=== PATIENT | female | born 1945 | race Caucasian/White ===

== ENCOUNTER → 2018-05-30 08:21 | Outpatient (CLI) | payer MEDICARE, SELFPAY ==
--- NOTE | 2018-05-30 08:24 | US_ITS ---
STUDY: THYROID ULTRASOUND REASON FOR EXAM: Female, 72 years old. Thyroid nodules TECHNIQUE: Ultrasound evaluation of the thyroid was performed with real-time and static french-scale imaging. COMPARISON: 01/27/2017 and 01/18/2016 FINDINGS: RIGHT LOBE: The right lobe of the thyroid gland measures 4.8 x 1.3 x 1.3 cm. There is a heterogeneous echotexture. Multiple small complex nodules are again noted, largest is in the upper pole measuring 1.2 x 0.8 x 0.5 cm. LEFT LOBE: The left lobe of the thyroid gland measures 4.8 x 2.2 x 1.9 cm. There is a heterogeneous echotexture. Stable appearing complex nodules, largest is in the mid to lower pole measuring 2.5 x 1.9 x 1.7 cm. ISTHMUS: The isthmus measures 2 mm. The regional lymph nodes are normal. US/Thyroid IMPRESSION: Stable heterogeneous thyroid with multiple complex nodules. Electronically Signed: Timbo Phillips DO at 9:27 EDT Tel , Service support ,
--- NOTE | 2018-05-30 08:24 | BI_ITS ---
MAMMOGRAPHY - BILATERAL SCREENING REASON FOR EXAM: Female, 72 years old. Routine annual screening examination. PERTINENT HISTORY: Non-contributory. TECHNIQUE: Digital bilateral breast zafar (3D mammographic acquisition) in the CC and MLO projections. 2-D mediolateral oblique (MLO) and craniocaudad (CC) views of both breasts were obtained. CAD: Full Field Digital Mammography with Computer Added Detection was performed. COMPARISON: Comparison is made with prior study dated January 27, 2017 and January 18, 2016. FINDINGS: Breast Composition: There are scattered areas of fibroglandular density. There are no dominant masses or suspicious calcifications. No other significant abnormalities are identified. There has been no significant change since the prior study. BI/SCREENING MAMM (CAD), BILAT IMPRESSION: Stable bilateral screening mammogram. Yearly follow-up mammogram recommended. (A) ASSESSMENT CATEGORY: BIRADS Category 1: Negative. A letter regarding these results will be sent to the patient by the facility within 30 days. Approximately 10% of breast cancers are not detected by mammography. A normal mammogram should not delay biopsy of a clinically suspicious abnormality. [id number] Electronically Signed: Samuel Soriano MD at 9:52 EDT Tel [phone], Service support ,
== END ==
PROVIDERS: Family Provider Internal Medicine; PCP Internal Medicine; Visit Provider Internal Medicine
DX: Z12.31 Encounter for screening mammogram for malignant neoplasm of breast (principal); E04.1 Nontoxic single thyroid nodule
CPT/HCPCS: 76536; 77063; 77067

== ENCOUNTER → 2018-07-27 12:39 | Outpatient (CLI) | payer SELFPAY ==
--- NOTE | 2018-07-27 12:43 | CT_ITS ---
STUDY: CARDIAC CALCIUM SCORING - CT CHEST REASON FOR EXAM: Female, 73 years old. Hyperlipidemia. Calcium score, screening. RADIATION DOSAGE (If Supplied By Facility): CTDIvol = ( 12.19 ) mGy, DLP = ( 219.42 ) mGycm TECHNIQUE: Axial non-enhanced images were acquired through the heart for the sole purpose of measuring coronary artery calcium. Individualized dose optimization techniques were used for this CT. COMPARISON: CT chest 02/08/2012. FINDINGS: Speckled calcifications in the spleen are consistent with old granulomatous disease. No acute upper abdominal process. There is a low-density circumscribed oval cystlike focus within the left liver measuring long axis XIV mm. A smaller cyst was present in the same position of the prior CT scan of 2011. Likely benign. Incompletely characterized. Ultrasound liver is recommended. Mediastinal contents normal. Osseous structures exhibit no acute process. There are prominent features of centrilobular emphysema. Right upper lobe anterior segment pulmonary nodule anterior pleural margin 5.4 mm. Stable compared to prior imaging of 2011. Unremarkable airways. No significant cardiomegaly. No pericardial effusion. Nondilated aorta. Nondilated central pulmonary arteries. The right and left coronary arteries each emerge from the appropriate coronary sinus with right coronary dominance to the PDA. Coronary cusp secretions are present in the proximal LAD, proximal circumflex, mid RCA. Total Calcium Score: 180 Left main 0 LAD 140 Circumflex 8[address]/Limited Chest CT w/CCTA IMPRESSION: A Calcium Score of 180 places the patient in the approximate 65th percentile, based on the [employer] data calculator. Prominent emphysema. Please go to: [email or web address] , for a description of the calculator. Electronically Signed: Ja Mariee MD at 17:17 EST Tel , Service support ,
--- NOTE | 2018-07-27 12:43 | CT_ITS ---
STUDY: CARDIAC CALCIUM SCORING - CT CHEST REASON FOR EXAM: Female, 73 years old. Hyperlipidemia. Calcium score, screening. RADIATION DOSAGE (If Supplied By Facility): CTDIvol = ( 12.19 ) mGy, DLP = ( 219.42 ) mGycm TECHNIQUE: Axial non-enhanced images were acquired through the heart for the sole purpose of measuring coronary artery calcium. Individualized dose optimization techniques were used for this CT. COMPARISON: CT chest 02/08/2012. FINDINGS: Speckled calcifications in the spleen are consistent with old granulomatous disease. No acute upper abdominal process. There is a low-density circumscribed oval cystlike focus within the left liver measuring long axis XIV mm. A smaller cyst was present in the same position of the prior CT scan of 2011. Likely benign. Incompletely characterized. Ultrasound liver is recommended. Mediastinal contents normal. Osseous structures exhibit no acute process. There are prominent features of centrilobular emphysema. Right upper lobe anterior segment pulmonary nodule anterior pleural margin 5.4 mm. Stable compared to prior imaging of 2011. Unremarkable airways. No significant cardiomegaly. No pericardial effusion. Nondilated aorta. Nondilated central pulmonary arteries. The right and left coronary arteries each emerge from the appropriate coronary sinus with right coronary dominance to the PDA. Coronary cusp secretions are present in the proximal LAD, proximal circumflex, mid RCA. Total Calcium Score: 180 Left main 0 LAD 140 Circumflex 8[address]/CCTA Calcium Scoring IMPRESSION: A Calcium Score of 180 places the patient in the approximate 65th percentile, based on the [employer] data calculator. Prominent emphysema. Please go to: [email or web address] , for a description of the calculator. Electronically Signed: Ja Mariee MD at 17:17 EST Tel , Service support ,
[2018-07-27 13:15] VITALS: BP 142/70; PULSE 59; RESP 14; O2SAT 95; BMI 24.1
--- NOTE | 2018-08-06 06:16 | CA.SCORE ---
Calcium Scoring Date of Study:: 07/27/18 Coronary Calcium Scoring: Coronary calcium score. High-resolution computed tomographic imaging of the chest was performed on 07/27/2018 with particular attention paid to the coronary arteries. Images from the examination were analyzed for the presence and extent of coronary artery calcification using the coronary calcification software. The patient tolerated the procedure well there were no complications. The results of the coronary calcification analysis are provided below. Coronary artery score Left main coronary artery score 0 Left anterior descending artery score 140 Left circumflex artery score 8 Right coronary artery score 31 Total calcium Agagston score [address] the patient between the 50th and 75th percentile ranking for age and gender. The above is indicative of mild nonobstructive atherosclerotic plaquing. Conclusion: Mild atherosclerotic disease with mild to minimal stenosis.
== END ==
PROVIDERS: Family Provider Internal Medicine; PCP Internal Medicine; Referring Provider Internal Medicine; Visit Provider Internal Medicine
DX: E78.5 Hyperlipidemia, unspecified (principal); J43.9 Emphysema, unspecified
CPT/HCPCS: 75571; 76380

== ENCOUNTER → 2018-08-21 08:58 | Outpatient (CLI) | payer MEDICARE, SELFPAY ==
[2018-07-27 13:15] VITALS: BMI 24.1
--- NOTE | 2018-08-21 09:01 | US_ITS ---
STUDY: ABDOMINAL ULTRASOUND - RIGHT UPPER QUADRANT REASON FOR VISIT: Female, 73 years old. Abnormality seen in the left lobe of the liver on prior CT scan. TECHNIQUE: Ultrasound evaluation of the right upper quadrant was performed with real-time and static french-scale imaging. TECHNICAL QUALITY: Adequate. COMPARISON: None. FINDINGS: Liver: The liver measures 13.0 cm. There is normal echogenicity of the liver. The bile ducts are within normal limits. There is hepatic color flow. The direction of portal flow is hepatopetal. There is a 1.3 cm x 1.8 cm x 1.2 cm cyst in the left lobe of the liver. This corresponds to the CT findings. Gallbladder: There is a contracted gallbladder. The gallbladder wall measures 4.0 mm. There is a negative sonographic Foy's sign. There is no pericholecystic fluid. There are multiple echogenic structures within the gallbladder, consistent with multiple gallstones. Common Bile Duct (C.B.D.): The common bile duct measures 3.0 mm. Pancreas: Normal size of the head, body and tail of the pancreas. There is normal echogenicity of the pancreas. There is no demonstrated pancreatic mass or cyst. Right Kidney: Normal size of the right kidney. The right kidney measures 9.8 cm x 4.6 cm x 4.1 cm. Normal renal cortex. The right cortex measures 1.3 cm. There is no demonstrated renal mass or cyst. There is no right hydronephrosis. US/Liver IMPRESSION: Contracted stone filled gallbladder. 1.3 cm x 1.8 cm x 1.2 cm cyst in the left lobe of the liver. Electronically Signed: Samuel Soriano MD at 10:05 EST Tel [phone], Service support ,
--- OUTSIDE RECORDS SUMMARY | 2018-10-23 09:20 | XMS RPT_ITS | Continuity of Care Document ---
:1945 External Reference #:[id number] Author Organization [facility] Address [address] [facility] [address] [place] [address] Phone Care Team Providers Name Role Phone Isabella Peacock DO Unavailable Tomer BRADLEY, Dr. Enoc Marcano Unavailable Merna Hinojosa Unavailable Unavailable Swati Bauer Unavailable Unavailable LILI Michel Unavailable Unavailable City Distribution Clerk, System Unavailable Unavailable Unavailable Unavailable Problems Name Dates Details Abnormal CT of liver (R93.2, 793.3) Status: Active Acute exacerbation of COPD with asthma (J44.1, 493.22) Comments: worsening and prolonged coughfollowing viral infection Status: Active Anxiety (F41.9, 300.00) Status: Active Arthralgia, unspecified joint (M25.50, 719.40) Comments: betteer with weight lost and eating less sugar Status: Active BMI 24.0-24.9, adult (Z68.24, V85.1) Status: Active Chest pain (R07.9, 786.50) Status: Active Chronic obstructive pulmonary disease (J44.9, 496) Comments: sx stable Status: Active COPD with acute exacerbation (Renamed from Acute exacerbation of chronic obstructive airways disease) (J44.1, 491.21) Comments: add albuterol- she has machine Status: Active Coronary artery disease (I25.10, 414.00) Status: Active Coronary artery disease, non-occlusive (I25.10, 414.00) Comments: takes somethingto thin blood she will send me a pic - already makes her bruise Status: Active Deliveries (Parity) Comments: 4 Status: Active Elevated hemoglobin A1c (R73.09, 790.29) Status: Active Encounter for screening mammogram for breast cancer (Renamed from Encounter for screening mammogram for malignant neoplasm of breast) (Z12.31, V76.12) Comments: dont schedule her tests just give orders Status: Active Encounter for screening mammogram for breast cancer (Renamed from Encounter for screening mammogram for malignant neoplasm of breast) (Z12.31, V76.12) Status: Active Encounter for screening mammogram for breast cancer (Renamed from Encounter for screening mammogram for malignant neoplasm of breast) (Z12.31, V76.12) Status: Active Former smoker (Z87.891, V15.82) Status: Active Gastroesophageal reflux disease without esophagitis (K21.9, 530.81) Status: Active History of colon polyps (Z86.010, V12.72) Status: Active Hypersomnia (G47.10, 780.54) Status: Active Influenza vaccination declined (Renamed from Refused influenza vaccine) (Z28.21, V64.06) Status: Active Influenza vaccination declined (Renamed from Refused influenza vaccine) (Z28.21, V64.06) Status: Active Malignant Melanoma Of Skin Comments: she is due for skin check Status: Active [facility] WE[facility] EXAM Status: Active [facility] Physical Status: Active [facility] wellness physical Status: Active Memory loss (R41.3, 780.93) Status: Active mthfr- check homocysteine then decide treatment Status: Active Need for prophylactic vaccination and inoculation against influenza (Z23, V04.81) Status: Active Need for prophylactic vaccination and inoculation against influenza (Z23, V04.81) Status: Active Need for prophylactic vaccination and inoculation against influenza (Renamed from Need for immunization against influenza) (Z23, V04.81) Status: Active Need for prophylactic vaccination and inoculation against influenza (Renamed from Need for immunization against influenza) (Z23, V04.81) Status: Active Need for prophylactic vaccination and inoculation against influenza (Renamed from Need for immunization against influenza) (Z23, V04.81) Status: Active Obstructive sleep apnea, adult (G47.33, 327.23) Comments: wearing cpap and feels it helps Status: Active Osteopenia of multiple sites (M85.89, 733.90) Comments: improved keep working on walking Status: Active Other hyperlipidemia (E78.49, 272.4) Status: Active Paresthesia (R20.2, 782.0) Status: Active Pneumococcal vaccination given (Z23, V06.6) Status: Active Postmenopausal (Renamed from Postmenopausal status) (Z78.0, V49.81) Status: Active Pregnancies () Comments: 4 Status: Active 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, 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) Comments: she considering potential treatment she will let me know when or if Status: Active Prolonged QT interval (R94.31, 794.31) Status: Active Pulmonary embolism (Renamed from PE (pulmonary embolism)) (I26.99, 415.19) Comments: no sx Status: Active Rhinitis, allergic (J30.9, 477.9) Status: Active Sleep Disorder (Renamed from Disordered sleep) (G47.9, 780.50) Comments: try melatonin 3 mg at hs prn Status: Active Thyroid Nodule (E04.1, 241.0) Status: Active 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, 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) Comments: she thinks better Status: Active Vitamin D deficiency, unspecified (E55.9, 268.9) Comments: chronic stable-continue present regimen Status: Active Medications Name Dates Details Albuterol Sulfate (2.5 MG/3ML) 0.083% Inhalation Nebulization Solution 1 (one) Nebulized Soln q 6 hours prn for 0 days Quantity: 1 {Box} Refills: 3 Ordered:30-Mar-2018 Fast DO, Isabella AFast DO, Isabella A Start : 30-Mar-2018 Active Metoprolol Tartrate 50 MG Oral Tablet 1 (one) Tablet Tablet 1 tab po @6pm night before scan, 1 tab po @7am day of scan for 0 days Quantity: 2 {Tablet} Refills: 0 Ordered:04-Jul-2018 Swati Bauer Start : 04-Jul-2018 Active Simvastatin 10 MG Oral Tablet 1 (one) Tablet q walker for 0 days Quantity: 30 {Tablet} Refills: 3 Ordered:20-Aug-2018 Fast DO, Isabella AFast DO, Isabella A Start : 20-Aug-2018 Active Spiriva HandiHaler 18 MCG Inhalation Capsule 1 Capsule puff q am for 30 days Quantity: 1 {Capsule} Refills: 3 Ordered:26-Jun-2018 Fast DO, Isabella AFast DO, Isabella A Start : 26-Jun-2018 Active Vitamin D3 2000 UNIT Oral Tablet 2 (two) Tablet qd for 0 days Quantity: 60 {Tablet} Refills: 0 Ordered:10-Mar-2017 Laura Bell MD Start : 10-Mar-2017 Active AMOXICILLIN, 500MG (Oral Tablet) 4 Tablet before dental procedure for 0 days Quantity: 4 {Tablet} Refills: 1 Ordered:28-Aug-2015 Swati Bauer Start : 23-May-2014 End : 28-Aug-2015 Inactive Augmentin 875-125 MG Oral Tablet 1 (one) Tablet bid for 0 days Quantity: 20 {Tablet} Refills: 0 Ordered:10-Mar-2017 LILI Michel Start : 28-Dec-2016 End : 10-Mar-2017 Inactive CALCIUM, 500MG (Oral Tablet) for 0 days Refills: 0 Ordered:27-Jun-2011 Merna Hinojosa End : 27-Jun-2011 Inactive CLARITIN, 10MG (Oral Capsule) 1 as needed for 0 days Refills: 0 Ordered:27-Jun-2011 Merna Hinojosa End : 27-Jun-2011 Inactive Comments:Medication taken as needed. CLARITIN-D 24 HOUR, 10-240MG (Oral Tablet Extended Release 24 Hour) 1 Tablet ER 24HR daily for 0 days Quantity: 30 Refills: 0 Ordered:27-Jun-2011 Merna Hinojosa Start : 15-Dec-2010 End : 27-Jun-2011 Inactive DRISDOL, 03538FLEF (Oral Capsule) 1 Capsule Weekly for 0 days Quantity: 4 {Capsule} Refills: 3 Ordered:27-Jun-2011 Merna Hinojosa Start : 05-Jul-2010 End : 27-Jun-2011 Inactive ERGOCALCIFEROL, [id number] (Oral Capsule) 1 (one) Capsule twice a week for 0 days Quantity: 8 {Capsule} Refills: 3 Ordered:15-Dec-2010 Luz Marina Barajas LPN Start : 15-Oct-2008 End : 15-Dec-2010 Inactive GLUCOSAMINE CHONDR 500 COMPLEX (Oral Capsule) for 0 days Refills: 0 Ordered:27-Jun-2011 Merna Hinojosa End : 27-Jun-2011 Inactive GUAIATUSSIN AC, 100-10MG/5ML (Oral Syrup) 1 Teaspoon(s) qhs prn for cough for 0 days Quantity: 6 {Ounce(s)} Refills: 0 Ordered:15-Dec-2010 Luz Marina Barajas LPN Start : 04-Aug-2009 End : 15-Dec-2010 Inactive LOVENOX, 60MG/0.6ML (Subcutaneous Solution) 1 BID QTY #4 for 0 days Refills: 0 Ordered:15-Dec-2010 Luz Marina Barajas LPN End : 15-Dec-2010 Inactive Meloxicam 7.5 MG Oral Tablet 1 (one) Tablet daily, prn for 30 days Quantity: 30 {Tablet} Refills: 3 Ordered:24-Mar-2017 Ny Parra LPN Start : 28-Jan-2015 End : 24-Mar-2017 Inactive OMNARIS, 50MCG/ACT (Nasal Suspension) 2 (two) Suspension puffs each nostril qd for 0 days Quantity: 1 {Suspension} Refills: 0 Ordered:14-Mar-2012 Merna Hinojosa Start : 27-Jun-2011 End : 14-Mar-2012 Inactive PREDNISONE, 20MG (Oral Tablet) 1 Tablet Tablet uad for 15 days Refills: 0 Ordered:28-Aug-2015 Merna Hinojosa Start : 28-Aug-2015 End : 12-Sep-2015 Inactive Comments:with food2 a d for 5 d, 1 a d for 5d, 1/2 a d for 5 d PROTONIX, 40MG (Oral Tablet Delayed Release) 1 tab qd,prn for 0 days Refills: 0 Ordered:15-Oct-2008 Merna Hinojosa End : 15-Oct-2008 Inactive PROVENTIL HFA, 108 (90 Base)MCG/ACT (Inhalation Aerosol Solution) 2 (two) Aerosol Soln 2puffs bid prn for 0 days Quantity: 1 {Aerosol_Soln} Refills: 0 Ordered:27-Jun-2011 Merna Hinojosa Start : 15-Dec-2010 End : 27-Jun-2011 Inactive TAMIFLU, 75MG (Oral Capsule) 1 Capsule bid for 5 days Quantity: 10 {Capsule} Refills: 0 Ordered:06-Aug-2012 Regine Jimenes CNP Start : 06-Aug-2012 End : 11-Aug-2012 Inactive Valtrex 1 GM Oral Tablet 1 (one) Tablet tid (1 GM) Start : 10-Mar-2017 Inactive CHERATUSSIN AC, 100-10MG/5ML (Oral Syrup) 1 Teaspoon(s) q 6-8 hrs prn for 0 days Quantity: 6 {Ounce(s)} Refills: 0 Ordered:06-May-2013 Fast DO, Isabella AFast DO, Isabella A Start : 06-May-2013 End : 06-May-2013 Discontinued Doxycycline Hyclate 100 MG Oral Capsule 1 (one) Capsule bid for 0 days Quantity: 20 {Capsule} Refills: 0 Ordered:14-Dec-2016 Merna Hinojosa Start : 13-Dec-2016 End : 14-Dec-2016 Discontinued Levaquin 500 MG Oral Tablet 1 (one) Tablet daily for 7 days Quantity: 7 {Tablet} Refills: 0 Ordered:28-Dec-2016 Merna Hinojosa Start : 14-Dec-2016 End : 28-Dec-2016 Discontinued MULTIVITAMIN (Oral Liquid) for 0 days Refills: 0 Ordered:27-Jun-2011 Merna Hinojosa End : 27-Jun-2011 Discontinued Comments:This order discontinued per [facility]. OXYGEN (Nasal Gas) (Free Text) 2L Nasal canula End : 28-Apr-2015 Discontinued Comments:2L Nasal canula at night PredniSONE 10 MG Oral Tablet 3 (three) Tablet pills for 3 days 2 pills for 3 days 1 pill for 3 days with food in the am for 0 days Quantity: 18 {Tablet} Refills: 0 Ordered:28-Dec-2016 Merna Hinojosa Start : 13-Dec-2016 End : 28-Dec-2016 Discontinued Symbicort 80-4.5 MCG/ACT Inhalation Aerosol 1 (one) Aerosol Aerosol bid for 0 days Quantity: 1 {Each} Refills: 0 Ordered:13-Dec-2016 Meran Hinojosa Start : 28-Aug-2015 End : 13-Dec-2016 Discontinued TESSALON PERLES, 100MG (Oral Capsule) 1 Capsule tid prn for 0 days Quantity: 30 {Capsule} Refills: 0 Ordered:06-May-2013 Fast DO, Isabella AFast DO, Isabella A Start : 06-May-2013 End : 06-May-2013 Discontinued VITAMIN D (ERGOCALCIFEROL), 65801LTIB (Oral Capsule) 1 Capsule q week for 0 days Quantity: 12 {Capsule} Refills: 3 Ordered:06-May-2013 Fast DO, Isaeblla AFast DO, Isabella A Start : 06-May-2013 End : 06-May-2013 Discontinued VITAMIN D, 80270BYKQ (Oral Capsule) 1 Weekly for 0 days Refills: 0 Ordered:07-Apr-2010 Mast Loyda MARTINEZ End : 07-Apr-2010 Discontinued Comments:This order discontinued per [facility]. WARFARIN SODIUM, 1MG (Oral Tablet) 1 (one) Tablet as directed for 30 days Quantity: 90 {Tablet} Refills: 3 Ordered:14-Mar-2012 Merna Hinojosa Start : 14-Mar-2012 End : 14-Mar-2012 Discontinued Allergies and Adverse Reactions Name Dates Details Biaxin *MACROLIDES* (Allergy) Status: Active Comments: Excessive gas Tetracyclines (Allergy) Status: Active Comments: elizabeth gave her esophageal issues- despite plenty of water Past Medical History Name Dates Details Acute upper respiratory infection (J06.9, 465.9) Status: Resolved as of 30-Mar-2018 Anemia, unspecified (D64.9, 285.9) Status: Resolved as of 05-Jul-2010 BMI 25.0-25.9,adult (Z68.25, V85.21) Status: Inactive as of 02-Jul-2018 BMI 26.0-26.9,adult (Z68.26, V85.22) Status: Inactive as of 24-Nov-2017 BMI 27.0-27.9,adult (Z68.27, V85.23) Status: Inactive as of 10-Mar-2017 Bronchitis (J40, 490) Status: Resolved as of 01-Mar-2010 Bronchitis, acute (J20.9, 466.0) Comments: good efort and curve some improve over baseline Status: Resolved as of 06-May-2013 Carpal tunnel syndrome, unspecified laterality (G56.00, 354.0) Status: Inactive as of 26-Dec-2014 COPD with acute exacerbation (Renamed from Acute exacerbation of chronic obstructive airways disease) (J44.1, 491.21) Status: Resolved as of 30-Mar-2018 Cough (R05, 786.2) 15-Dec-2010 Status: Resolved as of 11-Apr-2014 Dermatitis (L30.9, 692.9) Comments: on buttocks and face- both different seem to be getting with cortaid so use sparingly call not resolve Status: Resolved as of 30-Mar-2018 Elevated LFTs (R94.5, 790.6) Status: Resolved as of 05-Jul-2010 Encounter for screening mammogram for breast cancer (Renamed from Encounter for screening mammogram for malignant neoplasm of breast) (Z12.31, V76.12) Comments: end december Status: Resolved as of 30-Mar-2018 Fever and chills (R50.9, 780.60) Status: Resolved as of 06-May-2013 Hypoxia (R09.02, 799.02) Comments: now on bipap Status: Inactive as of 02-Jul-2018 Influenza B (J10.1, 487.1) Status: Resolved as of 06-May-2013 Knee pain (Renamed from Arthralgia of knee) (M25.569, 719.46) Status: Inactive as of 02-Jul-2018 Low back pain (Renamed from LBP (low back pain)) (M54.5, 724.2) Status: Resolved as of 05-Jul-2010 Low back pain potentially associated with radiculopathy (M54.5, 724.2) Comments: better Status: Inactive as of 02-Jul-2018 Lung nodule (R91.1, 793.11) Comments: benign by ct Status: Inactive as of 02-Jul-2018 Lymphadenopathy (Renamed from Adenopathy) (R59.1, 785.6) Status: Resolved as of 01-Mar-2010 Mildly decreased WBC, Increased lymphs Status: Resolved as of 30-Mar-2018 Need for prophylactic vaccination with tetanus toxoid alone (Z23, V03.7) Status: Inactive as of 06-Jan-2009 Neoplasm of uncertain behavior of skin (D48.5, 238.2) Status: Resolved as of 30-May-2012 Observed sleep apnea (G47.30, 780.57) Comments: per patient boyfriend has witnessed this multiple times at [facility] sleep study to evaluate had abnormal overnight pulse ox Status: Inactive as of 26-Dec-2014 Prophylactic vaccination against Streptococcus pneumoniae (Z23, V03.82) Status: Resolved as of 30-Mar-2018 Rash (R21, 782.1) Comments: on both buttocks not look like shingles firsst impressionis bu bites so gave education on how to check bed. will do zyrtic in am and benadryl in evening. check dog for fleas. next impression is follicul itis and will treat with hibclens and then consider oral atb. she funes snot want to do oral atb. if get more pustules then will do. if not better 1 week follow up Status: Resolved as of 30-Mar-2018 screening Status: Inactive as of 06-May-2013 screening Status: Resolved as of 30-Mar-2018 screening Status: Inactive as of 27-Jun-2011 screening Status: Inactive as of 11-Apr-2014 screening Status: Inactive as of 11-Apr-2014 screening Status: Inactive as of 14-Mar-2012 Severe daytime sleepiness Status: Resolved as of 30-Mar-2018 Shingles (B02.9, 053.9) Status: Resolved as of 30-Mar-2018 Snoring (R06.83, 786.09) Status: Inactive as of 26-Dec-2014 SOB (shortness of breath) on exertion (R06.02, 786.05) Status: Resolved as of 01-Mar-2010 Soft tissue mass (M79.9, 729.90) Status: Inactive as of 02-Jul-2018 STRIPPING AND LIGATION OF VEINS OF LEG, NOS Status: Resolved as of 30-Mar-2018 Tachycardia (Renamed from Fast heart beat) (R00.0, 785.0) Status: Resolved as of 01-Mar-2010 Trigger thumb of right hand (M65.311, 727.03) Comments: refer tomer Status: Resolved as of 30-Mar-2018 vit d def Status: Resolved as of 30-Mar-2018 Well woman exam (Z00.00, V70.0) Status: Inactive as of 27-Jun-2011 Wheezing (Renamed from Asthmatic breathing) (R06.2, 786.07) 15-Dec-2010 Status: Resolved as of 27-Jun-2011 Procedures Procedure Dates Details Colonoscopy Completed Comments: 08-08-08, colon polyps, repeat 10 yrs. left tka 2009 Completed right carpal tunnel- 2014 Completed STRIPPING AND LIGATION OF VEINS OF LEG, Completed NOS Tonsillectomy Completed Comments: and adenoids tubal ligation Completed vein stripping Completed Date Value Details 27-Jul-2018 CCTA Calcium Scoring Result: Comments: See Note; NOTES: [facility] Imaging Services [address] [place] [address] CCTA Calcium Scoring MR#: [id number] Acct: [id number] Name: KERI MARVIN Rep #: [id number] : 1945 F 73 From: Verónica Mariee MD PCP: Isabella Peacock DO Status: REG CLI Study: CCTA Calcium Scoring Date of Exam: 07/27/18 Exam# [id number] Ordering Dr: Isabella Peacock DO STUDY: CARDIAC CALCIUM SCORING - CT CHEST REASON FOR EXAM: Female, 73 years old. Hyperlipidemia. Calcium score, screening. RADIATION DOSAGE (If Supplied By Facility): CTDIvol = ( 12.19 ) mGy, DLP = ( 219.42 ) mGycm TECHNI QUE: Axial non-enhanced images were acquired through the heart for the sole purpose of measuring coronary artery calcium. Individualized dose optimization techniques were used for this CT. COMPARISON: CT chest 02/08/2012. FINDINGS: Speckled calcifications in the spleen are consistent with old granulomatous disease. No acute upper abdominal process. There is a low -density circumscribed oval cystlike focus within the left liver measuring long axis XIV mm. A smaller cyst was present in the same position of the prior CT scan of 2011. Likely benign. Incompletely connor racterized. Ultrasound liver is recommended. Mediastinal contents normal. Osseous structures exhibit no acute process. There are prominent features of centrilobular emphysema. Right upper lobe anterior segment pulmonary nodule anterior pleural margin 5.4 mm. Stable compared to prior imaging of 2011. Unremarkable airways. No significant cardiomegaly. No pericardial effusion. Nondilated aorta. Nondilat ed central pulmonary arteries. The right and left coronary arteries each emerge from the appropriate coronary sinus with right coronary dominance to the PDA. Coronary cusp secretions are present in the proximal LAD, proximal circumflex, mid RCA. Total Calcium Score: 180 Left main 0 LAD 140 [address]um[address]/CCTA Calcium Scoring IMPRESSI ON: A Calcium Score of 180 places the patient in the approximate 65th percentile, based on the [employer] data calculator. Prominent emphysema. Please go to: [email or web address] , for a description of the calculator. Electronically Signed: Verónica Mariee MD at 17:17 EST Tel , Service support , CC: Isabella Peacock DO Dot Compliance Manager: Signed 27-Jul-[address] w/CCTA Result: Comments: See Note; NOTES: [facility] Imaging Services [address] [place] [address] w/CCTA MR#: [id number] Acct: [id number] Name: KERI MARVIN Rep #: [id number] : 1945 F 73 From: Verónica Mariee MD PCP: Isabella Peacock DO Status: REG CLI Study: Limited Chest CT w/CCTA Date of Exam: 07/27/18 Exam# [id number] Ordering Dr: Isabella Peacock DO STUDY: CARDIAC C ALCIUM SCORING - CT CHEST REASON FOR EXAM: Female, 73 years old. Hyperlipidemia. Calcium score, screening. RADIATION DOSAGE (If Supplied By Facility): CTDIvol = ( 12.19 ) mGy, DLP = ( 219.42 ) mGycm TECHNIQUE: Axial non-enhanced images were acquired through the heart for the sole purpose of measuring coronary artery calcium. Individualized dose optimization techniques were used for this CT. CHRISSY RISON: CT chest 02/08/2012. FINDINGS: Speckled calcifications in the spleen are consistent with old granulomatous disease. No acute upper abdominal process. There is a low-density circumscribed oval cystlike focus within the left liver measuring long axis XIV mm. A smaller cyst was present in the same position of the prior CT scan of 2012. Likely benign. Incomplete ly characterized. Ultrasound liver is recommended. Mediastinal contents normal. Osseous structures exhibit no acute process. There are prominent features of centrilobular emphysema. Right upper lobe ant erior segment pulmonary nodule anterior pleural margin 5.4 mm. Stable compared to prior imaging of 2012. Unremarkable airways. No significant cardiomegaly. No pericardial effusion. Nondilated aorta. No ndilated central pulmonary arteries. The right and left coronary arteries each emerge from the appropriate coronary sinus with right coronary dominance to the PDA. Coronary cusp secretions are present in the proximal LAD, proximal circumflex, mid RCA. Total Calcium Score: 180 Left main 0 LAD 140 [address]umflex 8[address]/Limited Chest CT w/CCTA IMPRESSION: A Calcium Score of 180 places the patient in the approximate 65th percentile, based on the [employer] data calculator. Prominent emphysema. Please go to: [email or web address].[email or web address] , for a description of the calculator. Electronically Signed: Verónica Mariee MD at 17:17 EST Tel , Service support , Fax CC: Isabella Peacock DO Dot Compliance Manager: Signed 30-May-2018 SCREENING MAMM (CAD), BILAT Result: Comments: See Note; NOTES: [facility] Imaging Services [address] [place] [address] SCREENING MAMM (CAD), BILAT MR#: [id number] Acct: [id number] Name: KERI MARVIN Rep #: [id number] : 1945 F 72 From: Samuel Leal MD PCP: Isabella Peacock DO Status: REG CLI Study: SCREENING MAMM (CAD), BILAT Date of Exam: 05/30/18 Exam# [id number] Ordering Dr: Isabella Peacock DO MAMMOG UCHE - BILATERAL SCREENING REASON FOR EXAM: Female, 72 years old. Routine annual screening examination. PERTINENT HISTORY: Non-contributory. TECHNIQUE: Digital bilateral breast zafar (3D mammographic acquisition) in the CC and MLO projections. 2-D mediolateral oblique (MLO) and craniocaudad (CC) views of both breasts were obtained. CAD: Full Field Digital Mammography with Computer Added Detection w as performed. COMPARISON: Comparison is made with prior study dated January 27, 2017 and January 18, 2016. FINDINGS: Breast Composition: There are scattered areas of fibr oglandular density. There are no dominant masses or suspicious calcifications. No other significant abnormalities are identified. There has been no significant change since the prior study. BI/SCREENING MAMM (CAD), BILAT IMPRESSION: Stable bilateral screening mammogram. Yearly follow-up mammogram recommended. (A) ASSESSMENT CATEGORY: BIRADS Category 1: Negative. A letter regarding these results will be sent to the patient by the facility within 30 days. Approximately 10% of breast cancers are not detect ed by mammography. A normal mammogram should not delay biopsy of a clinically suspicious abnormality. [id number] Electronically Signed: Samuel Leal MD at 9:52 EDT Tel [phone], [employer] e support , CC: Isabella Peacock DO Dot Compliance Manager: Signed 30-May-2018 Thyroid Result: Comments: See Note; NOTES: [facility] Imaging Services [address] [place] [address] Thyroid MR#: [id number] Acct: [id number] Name: KERI MARVIN Rep #: [id number] : [birth year] F 72 From: Timbo Phillips DO PCP: Isabella Peacock DO Status: REG CLI Study: Thyroid Date of Exam: 05/30/18 Exam# [id number] Ordering Dr: Isabella Peacock DO STUDY: THYROID ULTRASOUND REASON FOR EXAM: Female, 72 years old. Thyroid nodules TECHNIQUE: Ultrasound evaluation of the thyroid was performed with real-time and static french-scale imaging. COMPARISON: 01/27/2017 and 01/18/2016 FINDINGS: RIGHT LOBE: The right lobe of the thyroid gland measures 4.8 x 1.3 x 1.3 cm. There is a heterogeneous echotexture. Multiple small complex nodules are again noted, largest is in the upper pole measuring 1.2 x 0.8 x 0.5 cm. LEFT LOBE: The left lobe of the thyroid gland measures 4.8 x 2.2 x 1.9 cm. There is a heterogeneous echotexture. Stable appearing complex nodules, largest is in the mid to lower pole measuring 2.5 x 1.9 x 1.7 cm. ISTHMUS: The isthmus measures 2 mm. The regional lymph nodes are normal. US/Thyroid IMPRE SSION: Stable heterogeneous thyroid with multiple complex nodules. Electronically Signed: Timbo Phillips DO at 9:27 EDT Tel , Service support , CC: Isabella Peacock DO Dot Compliance Manager: Signed 27-Jan-2017 SCREENING MAMM (CAD), BILAT Result: Comments: See Note; NOTES: [facility] Imaging Services [address] [place] [address] Verdana 4d SCREENING MAMM (CAD), BILAT MR#: [id number] Acct: [id number] Name: KERI MARVIN Rep #: [id number] : 1945 F 71 From: Samuel Leal MD PCP: Isabella Peacock DO Status: REG CLI Study: SCREENING MAMM (CAD), BILAT Date of Exam: 01/27/17 Exam# [id number] Ordering Dr: Isabella Peacock DO MAMMOGRAPHY - BILATERAL SCREENING REASON FOR EXAM: Female, 71 years old. Routine annual screening examination. PERTINENT HISTORY: Non-contributory. TECHNIQUE: Digital bilateral breast zafar (3D mammographic acquisition) in the CC and MLO projections. 2-D mediolateral oblique (MLO) and craniocaudad (CC) views of both breasts were obtained. CAD: Full Field Digital Mammography with Computer Added Detection was performed. COMPARISON: Comparison is made with prior examination dated January 18, 2016 and May 22, 2014. FINDINGS: Breast Composition: There are sc attered areas of fibroglandular density. There are no dominant masses or suspicious calcifications. No other significant abnormalities are identified. There has been no significant change since the pr ior study. HPBI/SCREENING MAMM (CAD), BILAT IMPRESSION: Stable bilateral screening mammogram. Yearly follow-up mammogram recommended. (A) ASSESSMENT CATEGORY: BIRADS Category 1: Negative. A letter regarding these results will be sent to the patient by the facility within 30 days. Approximately 10% of breast cancers are not detected by mammography. A normal mammogram should not delay biopsy of a clinically suspicious abnormality. [id number] Electronically Signed: Samuel eLal MD at 10:52 ED T Tel [phone], Service support , CC: Isabella Peacock DO Dot Compliance Manager: Signed 27-Jan-2017 Thyroid Result: Comments: See Note; NOTES: [facility] Imaging Services [address] [place] [address] Stefan 4d Thyroid MR#: [id number] Acct: [id number] Name: KERI MARVIN Rep #: [id number] D OB: 1945 F 71 From: Merna Solomon MD PCP: Isabella Peacock DO Status: REG CLI Study: Thyroid Date of Exam: 01/27/17 Exam# [id number] Ordering Dr: Isabella Peacock DO STUDY: THYROID ULTRASOUND REASON FOR EXAM: Female, 71 years old. Follow-up nodules TECHNIQUE: Ultrasound evaluation of the thyroid was performed with real-time and static french-scale imaging. COMPARISON: January 18, 2016 FINDINGS: RIGHT LOBE: The right lobe of the thyroid gland measures 5.0 x 1.3 x 1.4 cm. There is a heterogeneous echotexture. Six nodules were measured in the right lobe. The largest i s seen in the upper pole measuring 9.6 x 5.1 x 7.7 mm. This previously measured 9.9 x 5.8 x 7.7 mm. LEFT LOBE: The left lobe of the thyroid gland measures 4.7 x 1.8 x 2.2 cm. There is a heterogeneous e chotexture. Four nodules were measured in the left lobe. The largest is seen in the lower pole measuring 26.6 x 14.7 x 21.7 mm. This previously measured 23.2 x 16.8 x 17.9 mm. ISTHMUS: The isthmus jake ures 3.0 mm. The regional lymph nodes are normal. US/Thyroid IMPRESSION: The thyroid is prominent in size and heterogeneous with multiple nodul es consistent with multinodular goiter. There are no significant new findings. Electronically Signed: Merna Solomon MD at 0:00 EDT Tel [phone], Service support , Fax CC: Isabella Peacock DO Dot Compliance Manager: Signed 21-Sep-2016 NCS and/or EMG Patient Result: Comments: See Note; NOTES: [facility] Pulmonary Services/Neurology [address] [place] [address] NCS and/or EMG Patient MR#: [id number] Acct: [id number] Name: KERI MARVIN Rep #: [id number] : 1945 71 From: Donte Daniels MD Referring Dr: Isabella Peacock DO Status: REG CLI Ordering Dr: Isabella Peacock DO Date: 09/20/16 Location: [facility] Sex: F C DATE OF SERVICE: 09/20/2016 REF ERRING PHYSICIAN: Dr. Peacock INTRODUCTION: This is an EMG of the right upper extremity and nerve conduction study of the right upper extremity on this 71-year-old female with a history of bilateral carpa l tunnel syndrome, status post surgery bilaterally. She states on the right side, surgery initially helped; however, symptoms have worsened again leading to repeat evaluation. Nerve conduction study of the right upper extremity was performed. Although, the right upper extremity median motor distal latencies are prolonged, they are somewhat improved compared to previous study on April 24, 2012. Me huang F wave is also prolonged, but improved compared to the previous study. The ulnar motor conduction velocities have decreased since previous study, however. Right upper extremity EMG was performed i ncluding the first dorsal interosseous, abductor pollicis brevis and longus, brachioradialis, biceps, triceps, and deltoideus muscles. Median nerve innervated muscles distal to carpal tunnel did demonst rate large motor units, but no increase in insertional activity or spontaneous pathologic activity. Ulnar innervated muscles did demonstrate a positive sharp waves especially the first dorsal interosseo us. Other C8 muscles were normal including the abductor pollicis longus, all other muscles demonstrated normal insertional activity with absence of pathologic spontaneous activity. 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 EMG of the right upper extremity demonstrates an old median neuropathy, which appears to be inactive, and an ongoing ulnar neuropathy at the elbow. Donte mcgee MD T: NTS JOB: [id number] 09/21/16 1036 <Electronically signed by Donte Daniels MD> Date Donte Daniels MD CC: Isabella Peacock DO; Kerry Daniels MD Date Dictated: 09/20/16 1016 Date Transcribed: 09/20/16 1016 Dot Compliance Manager: Signed 30-Aug-2016 Dexa Bone Density Study () Result: Comments: See Note; NOTES: [facility] Imaging Services [address] [place] [address] Verdana 4d Dexa Bone Density Study () MR#: [id number] Acct: [id number] Name: KERI MARVIN Rep #: [id number] : 1945 F 71 From: Samuel Leal MD PCP: Isabella Peacock DO Status: [facility] CLI Study: Dexa Bone Density Study () Date of Exam: 08/30/16 Exam# [id number] Ordering Dr: Geni Peacock ra, DO STUDY: DUAL ENERGY X-RAY ABSORPTIOMETRY / DXA REASON FOR EXAM: Female, 71 years old. Early menopause. Loss of height. TECHNIQUE: Bone Mineral Density (BMD) measurements of lumbar spine and sarah ateral hips were obtained. COMPARISON: Comparison is made with prior study dated May 22, 2014. FINDINGS: Lumbar Spine (L1-L4): g/cm2 (1.195) / T-score (0.1) / Z-score (1.8) Findings are suggestive of normal bone density with a low fracture risk. Left Femur Total: g/cm2 (0.826) / T-score (-1.4) / Z-score (0.2) Left Femoral Neck: g/cm2 (0.863) / T-score (-1.3) / Z-score (0.6) Right Femur Total: g/cm2 (0.834) / T-score (-1.4) / Z-score (0.3) Right Femoral Neck: g/cm2 (0.806) / T-score (-1.7) / Z-score (0.2) The T- Scores on the most recent prior examination w ere: Lumbar Spine (L1-L4): There has been improvement of bone density since the previous examination. Left Femur Total: which represents an improvement of 0.9%. Right Femur Total: which represents a w orsening of 2.3%. HPBD/Dexa Bone Density Study (HP) IMPRESSION: The patient is considered osteopenic at the level of the femoral neck as outlined below according to World Gilberto Organization (WHO) criteria with a moderate fracture risk. There has been improvement of bone density since the previous examination. Reference Information: The T-score is the number of standard deviations above or below the standard which is normal for young adults at their peak bone mineral density. The World Health Organization ( WHO) interprets the T-scores as follows: Above -1 Normal bone density Between -1 and -2.5 Osteopenia Equal to / or below -2.5 Osteoporosis As a practical clinical guideline, osteopenia may be graded a s follows: Mild -1 through -1.5 Moderate -1.6 through -2.0 Severe -2.1 through -2.4 The Z-score is the number of standard deviations above or below age- matched controls. A Z-score of less than -1.5 wou ld be considered abnormal. References: 1. NIH Osteoporosis and Related Bone Diseases http://www.osteo.org 2. International Society for Clinical Densitometry http://www.iscd.org 3. National Osteoporosis Foundation http://www.nof.org Electronically Signed: Samule Leal MD at 9:49 EST Tel [phone], Service support [phone], CC: Isabella Peacock DO Dot Compliance Manager: Signed 18-Jan-2016 Bilat Scrn Digital AND CAD Result: Comments: See Note; NOTES: [facility] Imaging Services [address] [place] [address] Verdana 4d Bilat Scrn Digital AND CAD MR#: [id number] Acct: [id number] Name: KERI MARVIN Rep #: [id number] : 1945 F 70 From: Samuel Leal MD PCP: Isabella Peacock DO Status: REG CLI Study: Bilat Scrn Digital AND CAD Date of Exam: 01/18/16 Exam# [id number] Ordering Dr: Isabella Peacock DO MAMMOGRAPHY - BILATERAL SCREENING REASON FOR EXAM: Female, 70 years old. Routine annual screening examination. PERTINENT HISTORY: Non- contributory. TECHNIQUE: Digital bilat eral breast tomosynthesis (3-D mammographic acquisition) in the CC and MLO projections. Synthesized 2-D images (C-View reconstruction from tomosynthesis acquisition) providing bilateral breast CC and MLO views. Mediolateral oblique (MLO) and craniocaudad (CC) views of both breasts were obtained. CAD: Full Field Digital Mammography with Computer Added Detection was performed. COMPARISON: Compari son is made with prior study dated May 22, 2014 and September 14, 2012. FINDINGS: Breast Composition: There are scattered areas of fibroglandular density. T here are no dominant masses or suspicious calcifications. Stable benign-appearing small lymph node in the upper outer aspect of the left breast. No other significant abnormalities are identified. Th ere has been no significant change since the prior study. IMPRESSION: Stable bilateral screening mammogram. Yearly follow-up mammogram recommended. (A) ASSESSMENT CATEGORY: BIRADS Category 2: Benign. A letter regarding these results will be sent to the patient by the facility within 30 days. Approximately [address]% [address] cancers are not detected by mammography. A normal mammogram should not delay biopsy of a clinically suspicious abnormality. [id number] Electronically Signed: Samuel Leal MD at 12:34 EDT Tel [phone], Service support [phone], CC: Isabella Peacock DO Dot Compliance Manager: Signed 18-Jan-2016 Thyroid Result: Comments: See Note; NOTES: [facility] Imaging Services [address] [place] [address] Verdana 4d Thyroid MR#: [id number] Acct: [id number] Name: KERI MARVIN Rep # : [id number] : 1945 F 70 From: Samuel Leal MD PCP: Isabella Peacock DO Status: REG CLI Study: Thyroid Date of Exam: 01/18/16 Exam# [id number] Ordering Dr: Isabella Peacock DO STUDY: THYROID ULTRASOUND REASON FOR EXAM: Female, 70 years old. Thyroid nodules. TECHNIQUE: Ultrasound evaluation of the thyroid was performed with real-time and static french-scale imaging. COMPARISON: Comparis on is made with prior study dated September 05, 2014. FINDINGS: RIGHT LOBE: The right lobe of the thyroid gland measures 4.3 cm x 1.2 cm x 0.9 cm. There is a hete rogeneous echotexture. With again, 5 small solid nodules are seen in the right lobe of the thyroid. The largest measures 1.0 cm x 0.8 cm x 0.6 cm. This is in the upper lobe. LEFT LOBE: The left lobe of the thyroid gland measures 4.5 cm x 1.8 cm x 1.7 cm. There is a heterogeneous echotexture. Once again, 4 nodules are seen scattered throughout the left lobe. The largest measures 2.3 cm x 1.8 cm x 1.7 cm. This is essentially unchanged. ISTHMUS: The isthmus measures 2.0 mm. The regional lymph nodes are normal. IMPRESSION: Stable bilateral thyroid nodu les. Electronically Signed: Samuel Leal MD at 13:18 EDT Tel [phone], Service support [phone], CC: Isabella Peacock DO Dot Compliance Manager: Signed 10-Oct-2014 Sleep Study Report Result: Comments: See Note; NOTES: [facility] SLEEP DISORDER CENTER [address] [place] [address] Polysomnography with NCPAP MR#: [id number] Acct: [id number] Name: KERI MARVIN Rep #: [id number] : 1945 69 From: Donte Daniels MD PCP: Isabella Peacock DO Status: REG CLI Ordering Dr.: Isabella Peacock DO Date: 10/08/14 Sex: F C REFERRING PHYSICIAN: Dr. Peacock. SLEEP HIS TORY: This is a CPAP titration study performed on this 69-year-old female with a body mass index of 26.9 and an [place] Sleepiness Scale score of 14. History includes lung nodule, COPD, reflux diseas e, pulmonary embolism. Previous diagnostic polysomnogram performed September 22, 2014, disclosed an overall AHI of 17.6 and a supine AHI of 17.6 and a REM AHI of 18.5/39.2. The patient had previously been on nasal CPAP in the past, but is not currently using. MEDICATIONS AT THE TIME OF STUDY: Include vitamin D3, Spiriva, amoxicillin, meloxicam, and oxygen. MASK USED DURING THIS STUDY: AirFit f or her medium mask with heated humidity. Due to patient comfort and intolerance of CPAP bilevel therapy was initiated during this study. SCORING RULES: Respiratory events were acquired and scored in accordance with the Recommended Standards and Specifications as outlined in the AASM Manual for the Scoring of Sleep and Associated Events (most recent version). Please note that a reference to CM S AHI in this report is consistent with the current Hypopnea definition according to Medicare Criteria and an AASM AHI reference is consistent with the current Hypopnea definition according to the AAS M criteria. PROCEDURE: The study was attended continuously by a wind energy technician. Monitored parameters included left and right EOG, frontal, central, and occipital EEG, mental and submental EMG, le ft and right anterior tibialis EMG, signal ECG waveform, snore, continuous airflow with PAP device flow signal, chest and abdominal plethysmography efforts, oxygen saturation with heart rate, and body positioning with video monitoring. SLEEP SUMMARY: Lights off occurred at 10:02 p.m. and lights on at 5:05 a.m. for a total recording time of 422.2 minutes and a total sleep time of 191.8 minutes. Sl eep efficiency was 45.8% and sleep latency was 23.9 minutes. There was REM period with a REM latency of 337 minutes. All sleep stages are identified during this study. RESPIRATORY DATA: The total AHI was 0.3/5.9, increasing in REM sleep to 1.3/9.4, and in supine positioning to 5.9. The patient was supine for 3 hours and 11 minutes of sleep. Oxygen saturation ranged from 85% to 95% during slee p with a mean of 91.2% during sleep. The patient desaturated below 88% for 21.8 minutes of total sleep time. Pulse rate ranged from 68-107 beats per minute with a mean of 76.3 beats per minute. No a rrhythmias were identified. Leg movement index was mild at 1.9 per hour, none were associated with arousals. Nasal CPAP was initiated at 5 cm and titrated to 9 cm and due to patient comfort bilevel was initiated at 11/7 and titrated. At a setting of 19/13, 19 minutes of REM sleep was recorded and 10 minutes of nonREM sleep was recorded. The REM AHI was 0, the total sleep time AHI was 0/2.0, and the supine AHI was 0/2.0. Minimum oxygen saturation at this setting was 90%. IMPRESSION: Obstructive sleep apnea. RECOMMENDATION: Nasal BiPAP with a setting of 19/13 with bilevel Ti controls as f ollows: Ti Max 1.0, Ti Min 0.3, Easy-Breathe on, trigger medium, and cycle high. The patient should be prescribed the above indicated mask with heated humidity. INTERPRETING PHYSICIAN: Donte nguyen MD CC: Donte Daniels MD 1226 1425 10/10/14 1447 <Electronically signed by Donte Daniels MD > MACIEL Date Donte Daniels MD Co-signature (if applicable) Date Signed 25-Sep-2014 Sleep Study Report Result: Comments: See Note; NOTES: [facility] SLEEP DISORDER CENTER [address] [place] [address] Polysomnography MR#: [id number] Acct: [id number] Name: KERI MARVIN Rep #: [id number] : 1945 69 From: Donte Daniels MD PCP: Isabella Peacock DO Status: REG CLI Ordering Dr.: Isabella Peacock DO Date: 09/22/14 Sex: F C REFERRING PHYSICIAN: Dr. Isabella Peacock. SLEEP HISTORY: This is a diagnostic polysomnogram performed on this 69-year-old female with a body mass index of 26.9 and an [place] Sleepiness Scale score of 14. There was also a history of COPD and excessive day time somnolence. MEDICATIONS USED AT THE TIME OF STUDY: Include vitamin D3, Spiriva, amoxicillin, meloxicam, and oxygen. SCORING RULES: Respiratory events were acquired and scored in accordance wi th the Recommended Standards and Specifications as outlined in the AASM Manual for the Scoring of Sleep and Associated Events (most recent version). Please note that a reference to [facility] AHI in this re port is consistent with the current Hypopnea definition according to Medicare Criteria and an AASM AHI reference is consistent with the current Hypopnea definition according to the AASM criteria. MI OCEDURE: The study was attended continuously by a wind energy technician. Monitored parameters included left and right EOG, frontal, central, and occipital EEG, mental and submental EMG, left and right ant erior tibialis EMG, signal ECG waveform, snore, continuous airflow with thermistor and nasal pressure transducer, chest and abdominal plethysmography efforts, oxygen saturation with heart rate, and bod y positioning with video monitoring. SLEEP SUMMARY: Lights off occurred at 10:21 p.m. and lights on at 5:35 a.m. for a total recording time of 434.2 minutes and a total sleep time of 388.7 minutes. Calculated sleep efficiency was reduced at 89.5% and sleep latency was 10.5 minutes. There were 3 REM periods with a REM latency of 77.5 minutes. All sleep stages were identified during this study. RESPIRATORY DATA: The total AHI was 5.1 by CMS criteria and 17.6 by AASM criteria. The REM index was increased to 18.5/39.2 respectively. The patient was supine for 6 hours and 28 minutes of sleep d uring which time the total AHI was 17.6. Pulse rate ranged from 66-107 beats per minute with a mean of 78.4 beats per minute. No arrhythmias were identified during this study. Oxygen saturation ran ged from 75% to 99% with a mean of 92.2% during sleep. Leg movement index was 14.0 per hour, 1.7 per hour were associated with arousals , but none with wakefulness. IMPRESSION: 1. Mild to moderate obstructive sleep apnea with a severe component during REM sleep. 2. Periodic leg movements of sleep, mild. RECOMMENDATIONS: 1. CPAP titration study. 2. Periodic leg movements of sleep may improve with adequate rectification of sleep disordered breathing. If the patient has symptomatic restless leg syndrome during wakefulness, dopaminergic agents maybe of benefit. INTERPRETING PHYSICIAN: Yvette Daniels MD CC: Donte Daniels MD 1206 1231 09/25/14 1348 <Electronically signed by Donte Daniels MD > MACIEL Date Donte Daniels MD Co-signature (if applicable) Date Signed -Aug-2014 Thyroid Result: Comments: See Note; NOTES: [facility] Imaging Services [address] [place] [address] Ultrasound Report MR#: [id number] Acct: [id number] Name: KERI MARVIN Rep #: [id number] : 1945 F 69 From: Samuel Leal MD PCP: Isabella Peacock DO Status: REG CLI Study: Thyroid Date of Exam: 09/05/14 Exam# [id number] Ordering Dr: Isabella Peacock DO STUDY: THYROID ULTRASOU ND REASON FOR EXAM: Female, 69 years old. Thyroid nodules. TECHNIQUE: Ultrasound evaluation of the thyroid was performed with real-time and static french-scale imaging. COMPARISON: Comparison is scout yoder with prior study dated July 01, 2013. FINDINGS: RIGHT LOBE: The right lobe of the thyroid gland measures 4.2 cm x 1.2 cm x 1.2 cm. There is a heterogeneou s echotexture. 5 separate hypoechoic solid nodules are seen scattered throughout the lobe. The largest measures 1.1 cm x 1.0 cm x 0.4 cm. This is in the upper lobe. LEFT LOBE: The left lobe of the t hyroid gland measures 4.8 cm x 1.7 cm x 1.7 cm. There is a heterogeneous echotexture. Stable solid and cystic nodules are seen in the left lobe. The largest is in the midportion of the lobe and measu res 2 cm x 1.6 cm x 1.4 cm. This has slightly increased in size since prior examination. ISTHMUS: The isthmus measures 2.0 mm. The regional lymph nodes are normal. ____ IMPRESSION: Bilateral thyroid nodules essentially unchanged except for slight increase in size of the left mid lobe nodule which presently measures 2 cm x 1.6 cm x 1.4 cm. Electronically Sig simran: Samuel Leal MD at 14:33 EST Tel [phone], Service support [phone], CC: Isabella Peacock DO Dot Compliance Manager: Signed 22-May-2014 Dexa Bone Density Study (HP) Result: Comments: See Note; NOTES: [facility] Imaging Services [address] [place] [address] Bone Density Report MR#: [id number] Acct: [id number] Name: KERI MARVIN Rep #: [id number] : 1945 F 68 From: Samuel Leal MD PCP: Isabella Peacock DO Status: REG CLI Study: Dexa Bone Density Study (HP) Date of Exam: 05/22/14 Exam# [id number] Ordering Dr: Isabella Peacock DO STUDY: DUAL ENERGY X-RAY ABSORPTIOMETRY / DXA REASON FOR EXAM: Female, 68 years old. The patient is postmenopausal. TECHNIQUE: Bone Mineral Density (BMD) measurements of lumbar spine and bilateral hips were obtained. COMPARISON: Comparison is made with prior examination dated August 30, 2011. FINDINGS: Lumbar Spine (L1-L4): g/cm2 (1.182) / T-score (0.0 ) / Z-score (1.7) Findings are suggestive of normal bone density with a low fracture risk. Left Femur Total: g/cm2 (0.819) / T-score (-1.5) / Z-score (0.0) Left Femoral Neck: g/cm2 (0.846) / T-score (-1.4) / Z-score (0.3) Right Femur Total: g/cm2 (0.854) / T-score (-1.2) / Z- score (0.3) Right Femoral Neck: g/cm2 (0.834) / T-score (-1.5) / Z-score (0.3) The T-Scores on the most recent prior exa mination were: Lumbar Spine (L1-L4): There has been improvement of bone density since the previous examination. Left Femur Total: which represents a worsening of 4.8%. Right Femur Total: which rep resents a worsening of 0.9% . IMPRESSION: The patient is considered osteopenic at the level of the femoral neck as outlined below according to World Gilberto Organi zation (WHO) criteria with a moderate fracture risk. There has been worsening of bone density since the previous examination. Reference Information: The T-scor e is the number of standard deviations above or below the standard which is normal for young adults at their peak bone mineral density. The World Health Organization (WHO) interprets the T-scores as follows: Above -1 Normal bone density Between -1 and -2.5 Osteopenia Equal to / or below -2.5 Osteoporosis As a practical clinical guideline, osteopenia may be graded as follows: Mild -1 through -1.5 Moderate -1.6 through -2.0 Severe -2.1 through -2.4 The Z-score is the number of standard deviations above or below age-matched controls. A Z-score of less than -1.5 would be considered abnorm al. References: 1. NIH Osteoporosis and Related Bone Diseases http://www.osteo.org 2. International Society for Clinical Densitometry http://www.iscd.org 3. National Osteoporosis Foundation http:// www.nof.org Electronically Signed: Samuel Leal MD at 15:59 EDT Tel [phone], Service support [phone], CC: Isabella Peacock DO Dot Compliance Manager: Signed 16-May-2014 PT Discharge Summary Result: Comments: See Note; NOTES: [facility] [address] [place] [address]. [address] [place] [address] Fax REHABILITATION SERVICES DISCHARGE SUMMARY MR#: [id number] Acct: [id number] Name: KERI MARVIN Rep #: [id number] : 1945 68 From: Cyndy Damon Referring Dr.: Isabella Peacock DO Status: DIS RCR Eval Date: Discharge D ate: 05/13/14 DATE OF SERVICE: 05/13/2014 This patient was referred to physical therapy by Dr. Isabella Peacock with a diagnosis of low back pain with radiculopathy. She has been seen in our clinic t rafaelaes a total of 10 visits. Her physical therapy has mainly consisted of ultrasound, moist heat and therapeutic exercise instruction for dynamic lumbar stabilization and lower extremity strengthening . Upon examination today, her lumbar movement loss is as follows: Flexion -- minimal, bilateral side gliding -- minimal, extension -- moderate. The patient is pain free with gait and transfers with out guarding. She is independent with a home exercise program. She denies pain. She reports that she has not had any pain except for her back getting a little achy at times. Oswestry was 0%, [id number] , [id number]. She plans to follow up with Dr. Peacock on May 23, 2014. I am discharging her from formal physical therapy and she is agreeable to discharge. Cyndy Damon, PT T: NTS JOB: [id number] <Electronically signed by Cyndy Damon > 05/16/14 1034 CC: Signed 11-Apr-2014 L/S Spine Min 4 Views Result: Comments: See Note; NOTES: [facility] Imaging Services [address] [place] [id number] Radiology Report MR#: [id number] Acct: [id number] Name: KERI MARVIN Rep #: [id number] : 1945 F 68 From: Denise Cardoza MD PCP: Isabella Peacock DO Status: REG CLI Study: L/S Spine Min 4 Views Date of Exam: 04/11/14 Exam# [id number] Ordering Dr: Isabella Peacock DO STUDY: X-RAY - LUMB AR SPINE REASON FOR EXAM: Female, 68 years old. Pain across lower back and down the leg. TECHNIQUE: 5 view(s) of the lumbar spine were obtained. COMPARISON: 06/24/15 FINDINGS: Normal lumbar lordosis. There is no substantial scoliosis. There is 1 cm anterolisthesis of L5 on S1. There may be bilateral pars defect at L5. There is multilevel endplate spond ylosis of the lumbar vertebrae. There is multi-level degenerative disc disease with multi-level disc space narrowing. There is no demonstrated fracture. There is atherosclerotic calcification of the abdominal aorta without a demonstrated aneurysm. IMPRESSION: Degenerative changes of the spine, as detailed above. Anterolisthesis of L5 on S1; stable. Given t he history of radiculopathy, recommend MRI if there is no MRI contraindication. Electronically Signed: Vivienne Cardoza MD at 11:36 EDT Tel [phone], Service support [phone], Fax CC: Isabella Peacock DO Dot Compliance Manager: Signed 20-Mar-2014 Spirometry ([id number]) Result: 01-Jul-2013 Thyroid Result: Comments: See Note; NOTES: [facility] Imaging Services [address] [place] [id number] Ultrasound Report MR#: [id number] Acct: [id number] Name: KERI MARVIN Rep #: [id number] : 1945 F 68 From: Fredis Aguirre MD PCP: Isabella Peacock DO Status: REG CLI Study: Thyroid Date of Exam: 07/01/13 Exam# [id number] Ordering Dr: Isabella Peacock DO STUDY: THYROID ULTRASOUND RE ASON FOR EXAM: Female, 68 years old. Nodule TECHNIQUE: Ultrasound evaluation of the thyroid was performed with real-time and static french-scale imaging. COMPARISON: None. FINDINGS: RIGHT LOBE: The right lobe of the thyroid gland measures 5.1 x 1.2 x 1.1 cm. There is a homogeneous echotexture. 3 separate nodules noted in the right lobe of the thyroid the l argest measures 10 x 7 x 5 mm, the smallest 5 x 5 x 3 mm. LEFT LOBE: The left lobe of the thyroid gland measures 4.5 x 2.2 x 1.3 cm. There is a homogeneous echotexture. Multiple solid/cystic nodules are also noted in the left lobe. The largest measures 1.9 x 1.2 x 0.9 cm, smallest 0.5 x 0.5 x 0.4 cm. ISTHMUS: The isthmus measures 3 mm. Sonography cannot distinguish between benign and aggress long thyroid nodules. Since there are no prior studies available for comparison, further evaluation with thyroid scintigraphy is recommended. If the uptake pattern is suspicious, biopsy would be recom mended, if not, a yearly followup would be recommended. IMPRESSION: Findings are suggestive of multinodular goiter however, sonography cannot distinguish betwee n benign and aggressive nodules. Please see discussion above Electronically Signed: Fabián Aguirre M.D. at 11:55 EST , Service support [phone], CC: Isabella Peacock DO Dot Compliance Manager: Signed Immunization Name Dates Details Influenza (3 years and up) on: 11-May-2009 Comments: Lot #[id number]-left deltoidDose0.5mlgiven by Harpal Yung LPN Pneumococcal (2 years and up) on: 11-May-2009 Comments: Lot #[id number]-right deltoidDose0.5mlgiven by Harpal Yung LPN Tetanus on: 28-Jan-2008 Comments: Lot #:[id number] date:mount given:0.5mlRoute:IM Site given:left deltoidGiven by: SCOUT Merritt Family History Unknown Family Member Name Dates Details Brother 1 Comments: hx postpolio sx Status: Active Father Comments: at 77, had sleep apnea, [place], glaucoma Status: Active Mother Comments: Osteopenia, hearty problems.- age 89 heart- hx of afib Status: Active Sister 2 Comments: 1- unknown 2- healthy Status: Active Social History Name Dates Details Living Situation Comments: Status: Active 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 Status: Active Smoking Status Name Dates Details Former smoker Vital Signs Date Test Result Details :16 Temperature 97.1 f Comments: Method: Temporal Pulse 68 /min Comments: Pattern: Regular Respiration Rate 16 /min Comments: Pattern: Unlabored BP Systolic 136 mm[Hg] Comments: Patient Position: Sitting; Cuff Location: Left Arm; Cuff Size: Standard BP Diastolic 70 mm[Hg] Comments: Patient Position: Sitting; Cuff Location: Left Arm; Cuff Size: Standard Weight 133.5 lb Height 61.5 in Body Mass Index Calculated 24.82 kg/m2 Body Surface Area Calculated 1.6 m2 :29 Temperature 98.1 f Comments: Method: Temporal Pulse 82 /min Comments: Pattern: Regular Respiration Rate 16 /min Comments: Pattern: Unlabored BP Systolic 120 mm[Hg] Comments: Patient Position: Sitting; Cuff Location: Left Arm; Cuff Size: Standard BP Diastolic 62 mm[Hg] Comments: Patient Position: Sitting; Cuff Location: Left Arm; Cuff Size: Standard Weight 133.5 lb Height 61.5 in Body Mass Index Calculated 24.82 kg/m2 Body Surface Area Calculated 1.6 m2 :41 Temperature 97.2 f Comments: Method: Temporal Pulse 74 /min Comments: Pattern: Regular Respiration Rate 20 /min Comments: Pattern: Unlabored O2 SAT 97 % Comments: Room air BP Systolic 124 mm[Hg] Comments: Patient Position: Sitting; Cuff Location: Left Arm; Cuff Size: Standard BP Diastolic 70 mm[Hg] Comments: Patient Position: Sitting; Cuff Location: Left Arm; Cuff Size: Standard Weight 137 lb Height 61.5 in Body Mass Index Calculated 25.47 kg/m2 Body Surface Area Calculated 1.62 m2 :46 Temperature 98.5 f Comments: Method: Temporal Pulse 70 /min Comments: Pattern: Regular Respiration Rate 16 /min Comments: Pattern: Unlabored BP Systolic 120 mm[Hg] Comments: Patient Position: Sitting; Cuff Location: Left Arm; Cuff Size: Standard BP Diastolic 68 mm[Hg] Comments: Patient Position: Sitting; Cuff Location: Left Arm; Cuff Size: Standard Weight 138.5 lb Height 61.5 in Body Mass Index Calculated 25.75 kg/m2 Body Surface Area Calculated 1.63 m2 :40 Temperature 97.2 f Comments: Method: Temporal Pulse 86 /min Comments: Pattern: Regular Respiration Rate 16 /min Comments: Pattern: Unlabored O2 SAT 98 % Comments: Room air BP Systolic 104 mm[Hg] Comments: Patient Position: Sitting; Cuff Location: Left Arm; Cuff Size: Standard BP Diastolic 68 mm[Hg] Comments: Patient Position: Sitting; Cuff Location: Left Arm; Cuff Size: Standard Weight 139 lb Height 61.5 in Body Mass Index Calculated 25.84 kg/m2 Body Surface Area Calculated 1.63 m2 :13 Temperature 98.2 f Comments: Method: Temporal Pulse 85 /min Comments: Pattern: Regular Respiration Rate 16 /min Comments: Pattern: Unlabored O2 SAT 92 % Comments: Room air BP Systolic 126 mm[Hg] Comments: Patient Position: Sitting; Cuff Location: Left Arm; Cuff Size: Standard BP Diastolic 80 mm[Hg] Comments: Patient Position: Sitting; Cuff Location: Left Arm; Cuff Size: Standard Weight 144 lb Height 61.5 in Body Mass Index Calculated 26.77 kg/m2 Body Surface Area Calculated 1.65 m2 :38 Temperature 97.6 f Comments: Method: Temporal Pulse 70 /min Comments: Pattern: Regular Respiration Rate 20 /min Comments: Pattern: Unlabored O2 SAT 95 % Comments: Room air BP Systolic 114 mm[Hg] Comments: Patient Position: Sitting; Cuff Location: Left Arm; Cuff Size: Standard BP Diastolic 64 mm[Hg] Comments: Patient Position: Sitting; Cuff Location: Left Arm; Cuff Size: Standard Weight 140 lb Height 61.5 in Body Mass Index Calculated 26.02 kg/m2 Body Surface Area Calculated 1.63 m2 :08 Temperature 97.2 f Comments: Method: Temporal Pulse 92 /min Comments: Pattern: Regular Respiration Rate 15 /min Comments: Pattern: Unlabored O2 SAT 94 % Comments: Room air BP Systolic 116 mm[Hg] Comments: Patient Position: Sitting; Cuff Location: Left Arm; Cuff Size: Standard BP Diastolic 70 mm[Hg] Comments: Patient Position: Sitting; Cuff Location: Left Arm; Cuff Size: Standard Weight 140 lb Height 61.5 in Body Mass Index Calculated 26.02 kg/m2 Body Surface Area Calculated 1.63 m2 :39 Temperature 97 f Comments: Method: Temporal Pulse 82 /min Comments: Pattern: Regular Respiration Rate 17 /min Comments: Pattern: Unlabored O2 SAT 99 % Comments: Room air BP Systolic 126 mm[Hg] Comments: Patient Position: Sitting; Cuff Location: Left Arm; Cuff Size: Standard BP Diastolic 80 mm[Hg] Comments: Patient Position: Sitting; Cuff Location: Left Arm; Cuff Size: Standard Weight 140 lb Height 61.5 in Body Mass Index Calculated 26.02 kg/m2 Body Surface Area Calculated 1.63 m2 :00 Temperature 97 f Comments: Method: Temporal Pulse 87 /min Comments: Pattern: Regular Respiration Rate 16 /min Comments: Pattern: Unlabored BP Systolic 123 mm[Hg] Comments: Patient Position: Sitting; Cuff Location: Left Arm; Cuff Size: Standard BP Diastolic 72 mm[Hg] Comments: Patient Position: Sitting; Cuff Location: Left Arm; Cuff Size: Standard Weight 142 lb Height 61.5 in Body Mass Index Calculated 26.4 kg/m2 Body Surface Area Calculated 1.64 m2 :18 Temperature 96.8 f Comments: Method: Temporal Pulse 92 /min Comments: Pattern: Regular Respiration Rate 15 /min Comments: Pattern: Unlabored BP Systolic 126 mm[Hg] Comments: Patient Position: Sitting; Cuff Location: Left Arm; Cuff Size: Standard BP Diastolic 84 mm[Hg] Comments: Patient Position: Sitting; Cuff Location: Left Arm; Cuff Size: Standard Weight 150 lb Height 61.5 in Body Mass Index Calculated 27.88 kg/m2 Body Surface Area Calculated 1.68 m2 :14 Temperature 97.2 f Comments: Method: Temporal Pulse 102 /min Comments: Pattern: Regular Respiration Rate 16 /min Comments: Pattern: Unlabored O2 SAT 96 % Comments: Room air BP Systolic 120 mm[Hg] Comments: Patient Position: Sitting; Cuff Location: Left Arm; Cuff Size: Standard BP Diastolic 76 mm[Hg] Comments: Patient Position: Sitting; Cuff Location: Left Arm; Cuff Size: Standard Weight 153 lb Height 61.5 in Body Mass Index Calculated 28.44 kg/m2 Body Surface Area Calculated 1.7 m2 :29 Temperature 99.2 f Comments: Method: Temporal Pulse 100 /min Comments: Pattern: Regular Respiration Rate 16 /min Comments: Pattern: Unlabored O2 SAT 97 % Comments: Room air BP Systolic 120 mm[Hg] Comments: Patient Position: Sitting; Cuff Location: Left Arm; Cuff Size: Standard BP Diastolic 72 mm[Hg] Comments: Patient Position: Sitting; Cuff Location: Left Arm; Cuff Size: Standard Weight 147 lb Height 61.5 in Body Mass Index Calculated 27.33 kg/m2 Body Surface Area Calculated 1.67 m2 :12 Temperature 97.9 f Comments: Method: Temporal Pulse 90 /min Comments: Pattern: Regular Respiration Rate 16 /min Comments: Pattern: Unlabored O2 SAT 94 % Comments: Room air BP Systolic 100 mm[Hg] Comments: Patient Position: Sitting; Cuff Location: Left Arm; Cuff Size: Standard BP Diastolic 62 mm[Hg] Comments: Patient Position: Sitting; Cuff Location: Left Arm; Cuff Size: Standard Weight 147 lb Height 61.5 in Body Mass Index Calculated 27.33 kg/m2 Body Surface Area Calculated 1.67 m2 :44 Temperature 96.9 f Comments: Method: Oral Pulse 56 /min Comments: Pattern: Regular Respiration Rate 16 /min Comments: Pattern: Unlabored BP Systolic 116 mm[Hg] Comments: Patient Position: Sitting; Cuff Location: Left Arm; Cuff Size: Standard BP Diastolic 82 mm[Hg] Comments: Patient Position: Sitting; Cuff Location: Left Arm; Cuff Size: Standard Weight 153 lb Height 61.5 in Body Mass Index Calculated 28.44 kg/m2 Body Surface Area Calculated 1.7 m2 :36 Temperature 98.4 f Pulse 68 /min Comments: Pattern: Regular Respiration Rate 16 /min Comments: Pattern: Unlabored BP Systolic 116 mm[Hg] Comments: Patient Position: Sitting; Cuff Location: Left Arm; Cuff Size: Standard BP Diastolic 72 mm[Hg] Comments: Patient Position: Sitting; Cuff Location: Left Arm; Cuff Size: Standard Weight 154 lb Height 61.5 in Body Mass Index Calculated 28.63 kg/m2 Body Surface Area Calculated 1.7 m2 :41 Temperature 96.6 f Pulse 84 /min Comments: Pattern: Regular Respiration Rate 16 /min Comments: Pattern: Unlabored BP Systolic 112 mm[Hg] Comments: Patient Position: Sitting; Cuff Location: Left Arm; Cuff Size: Standard BP Diastolic 74 mm[Hg] Comments: Patient Position: Sitting; Cuff Location: Left Arm; Cuff Size: Standard Weight 152 lb Height 61.5 in Body Mass Index Calculated 28.25 kg/m2 Body Surface Area Calculated 1.69 m2 :48 Temperature 96.6 f Pulse 92 /min Comments: Pattern: Regular Respiration Rate 16 /min Comments: Pattern: Unlabored BP Systolic 110 mm[Hg] Comments: Patient Position: Sitting; Cuff Location: Left Arm; Cuff Size: Standard BP Diastolic 70 mm[Hg] Comments: Patient Position: Sitting; Cuff Location: Left Arm; Cuff Size: Standard Weight 149 lb Height 61.5 in Body Mass Index Calculated 27.7 kg/m2 Body Surface Area Calculated 1.68 m2 :07 Pulse 87 /min Comments: Pattern: Regular Respiration Rate 16 /min O2 SAT 97 % Comments: Room air BP Systolic 142 mm[Hg] Comments: Patient Position: Sitting; Cuff Location: Left Arm; Cuff Size: Standard BP Diastolic 82 mm[Hg] Comments: Patient Position: Sitting; Cuff Location: Left Arm; Cuff Size: Standard Weight 140 lb Height 61.5 in Body Mass Index Calculated 26.02 kg/m2 Body Surface Area Calculated 1.63 m2 :54 Pulse 99 /min Comments: Pattern: Regular Respiration Rate 16 /min Comments: Pattern: Unlabored O2 SAT 97 % Comments: Room air BP Systolic 140 mm[Hg] Comments: Patient Position: Sitting; Cuff Location: Left Arm; Cuff Size: Standard BP Diastolic 80 mm[Hg] Comments: Patient Position: Sitting; Cuff Location: Left Arm; Cuff Size: Standard Weight 140 lb Height 61.5 in Body Mass Index Calculated 26.02 kg/m2 Body Surface Area Calculated 1.63 m2 :40 Temperature 98.2 f Comments: Method: Temporal Pulse 93 /min Comments: Pattern: Regular Respiration Rate 18 /min Comments: Pattern: Unlabored O2 SAT 91 % Comments: Room air BP Systolic 130 mm[Hg] Comments: Patient Position: Sitting; Cuff Location: Left Arm; Cuff Size: Standard BP Diastolic 84 mm[Hg] Comments: Patient Position: Sitting; Cuff Location: Left Arm; Cuff Size: Standard Weight 137 lb Height 61.5 in Body Mass Index Calculated 25.47 kg/m2 Body Surface Area Calculated 1.62 m2 :49 Temperature 97.4 f Pulse 108 /min Comments: Pattern: Regular Respiration Rate 16 /min Comments: Pattern: Unlabored BP Systolic 122 mm[Hg] Comments: Patient Position: Sitting; Cuff Location: Left Arm; Cuff Size: Large BP Diastolic 70 mm[Hg] Comments: Patient Position: Sitting; Cuff Location: Left Arm; Cuff Size: Large Weight 137 lb Height 61.5 in Body Mass Index Calculated 25.47 kg/m2 Body Surface Area Calculated 1.62 m2 :05 Temperature 97.1 f Comments: Method: Oral Pulse 76 /min Comments: Pattern: Regular Respiration Rate 18 /min Comments: Pattern: Unlabored O2 SAT 94 % Comments: Room air BP Systolic 118 mm[Hg] Comments: Patient Position: Sitting; Cuff Location: Left Arm; Cuff Size: Standard BP Diastolic 78 mm[Hg] Comments: Patient Position: Sitting; Cuff Location: Left Arm; Cuff Size: Standard Weight 139 lb Height 62 in Body Mass Index Calculated 25.42 kg/m2 Body Surface Area Calculated 1.64 m2 :37 Temperature 99 f Comments: Method: Oral Pulse 82 /min Comments: Pattern: Regular Respiration Rate 18 /min Comments: Pattern: Unlabored O2 SAT 94 % Comments: Room air BP Systolic 124 mm[Hg] Comments: Patient Position: Sitting; Cuff Location: Left Arm; Cuff Size: Standard BP Diastolic 80 mm[Hg] Comments: Patient Position: Sitting; Cuff Location: Left Arm; Cuff Size: Standard Weight 139 lb Height 62 in Body Mass Index Calculated 25.42 kg/m2 Body Surface Area Calculated 1.64 m2 :46 Temperature 97.7 f Pulse 100 /min Comments: Pattern: Regular Respiration Rate 16 /min Comments: Pattern: Unlabored BP Systolic 108 mm[Hg] Comments: Patient Position: Sitting; Cuff Location: Left Arm; Cuff Size: Large BP Diastolic 64 mm[Hg] Comments: Patient Position: Sitting; Cuff Location: Left Arm; Cuff Size: Large Weight 139 lb Height 62 in Body Mass Index Calculated 25.42 kg/m2 Body Surface Area Calculated 1.64 m2 :57 Temperature 97.2 f Pulse 76 /min Comments: Pattern: Regular Respiration Rate 16 /min Comments: Pattern: Unlabored BP Systolic 122 mm[Hg] Comments: Patient Position: Sitting; Cuff Location: Left Arm; Cuff Size: Large BP Diastolic 76 mm[Hg] Comments: Patient Position: Sitting; Cuff Location: Left Arm; Cuff Size: Large Weight 138 lb Height 62 in Body Mass Index Calculated 25.24 kg/m2 Body Surface Area Calculated 1.63 m2 :53 Temperature 97.3 f Pulse 84 /min Comments: Pattern: Regular Respiration Rate 16 /min Comments: Pattern: Unlabored BP Systolic 120 mm[Hg] Comments: Patient Position: Sitting; Cuff Location: Left Arm; Cuff Size: Large BP Diastolic 72 mm[Hg] Comments: Patient Position: Sitting; Cuff Location: Left Arm; Cuff Size: Large Weight 138 lb Height 62 in Body Mass Index Calculated 25.24 kg/m2 Body Surface Area Calculated 1.63 m2 :00 Temperature 96 f Pulse 84 /min Comments: Pattern: Regular Respiration Rate 16 /min Comments: Pattern: Unlabored BP Systolic 120 mm[Hg] Comments: Patient Position: Sitting; Cuff Location: Left Arm; Cuff Size: Large BP Diastolic 80 mm[Hg] Comments: Patient Position: Sitting; Cuff Location: Left Arm; Cuff Size: Large Weight 143 lb Height 62 in Body Mass Index Calculated 26.15 kg/m2 Body Surface Area Calculated 1.66 m2 :32 Temperature 97.2 f Comments: Method: Oral Pulse 88 /min Comments: Pattern: Regular Respiration Rate 18 /min Comments: Pattern: Unlabored O2 SAT 95 % Comments: Room air BP Systolic 142 mm[Hg] Comments: Patient Position: Sitting; Cuff Location: Left Arm; Cuff Size: Standard BP Diastolic 82 mm[Hg] Comments: Patient Position: Sitting; Cuff Location: Left Arm; Cuff Size: Standard Weight 136 lb Height 62 in Body Mass Index Calculated 24.87 kg/m2 Body Surface Area Calculated 1.62 m2 :08 Temperature 98.1 f Pulse 92 /min Comments: Pattern: Regular Respiration Rate 18 /min Comments: Pattern: Unlabored BP Systolic 134 mm[Hg] Comments: Patient Position: Sitting; Cuff Location: Left Arm; Cuff Size: Large BP Diastolic 86 mm[Hg] Comments: Patient Position: Sitting; Cuff Location: Left Arm; Cuff Size: Large Weight 147 lb :40 Temperature 98.6 f Comments: Method: Oral Pulse 92 /min Comments: Pattern: Regular Respiration Rate 18 /min Comments: Pattern: Unlabored BP Systolic 142 mm[Hg] Comments: Patient Position: Sitting; Cuff Location: Left Arm; Cuff Size: Large BP Diastolic 82 mm[Hg] Comments: Patient Position: Sitting; Cuff Location: Left Arm; Cuff Size: Large Weight 146 lb :22 Temperature 98.1 f Pulse 92 /min Comments: Pattern: Regular Respiration Rate 18 /min Comments: Pattern: Unlabored BP Systolic 120 mm[Hg] Comments: Patient Position: Sitting; Cuff Location: Left Arm; Cuff Size: Large BP Diastolic 66 mm[Hg] Comments: Patient Position: Sitting; Cuff Location: Left Arm; Cuff Size: Large Weight 146 lb :51 Temperature 96.8 f Pulse 84 /min Comments: Pattern: Regular Respiration Rate 18 /min Comments: Pattern: Unlabored BP Systolic 128 mm[Hg] Comments: Patient Position: Sitting; Cuff Location: Left Arm; Cuff Size: Standard BP Diastolic 88 mm[Hg] Comments: Patient Position: Sitting; Cuff Location: Left Arm; Cuff Size: Standard Weight 145 lb :55 Temperature 98.2 f Comments: Method: Oral Pulse 92 /min Comments: Pattern: Regular Respiration Rate 18 /min Comments: Pattern: Unlabored BP Systolic 110 mm[Hg] Comments: Patient Position: Sitting; Cuff Location: Left Arm; Cuff Size: Large BP Diastolic 78 mm[Hg] Comments: Patient Position: Sitting; Cuff Location: Left Arm; Cuff Size: Large :17 Temperature 96.4 f Pulse 116 /min Comments: Pattern: Regular Respiration Rate 18 /min Comments: Pattern: Unlabored O2 SAT 97 % Comments: Room air BP Systolic 126 mm[Hg] Comments: Patient Position: Sitting; Cuff Location: Left Arm; Cuff Size: Large BP Diastolic 76 mm[Hg] Comments: Patient Position: Sitting; Cuff Location: Left Arm; Cuff Size: Large Weight 141 lb :44 Temperature 97 f Comments: Method: Oral Pulse 90 /min Comments: Pattern: Regular Respiration Rate 16 /min Comments: Pattern: Unlabored O2 SAT 98 % Comments: Room air BP Systolic 126 mm[Hg] Comments: Patient Position: Sitting; Cuff Location: Left Arm; Cuff Size: Standard BP Diastolic 74 mm[Hg] Comments: Patient Position: Sitting; Cuff Location: Left Arm; Cuff Size: Standard Weight 145 lb Height 62.25 in Body Mass Index Calculated 26.31 kg/m2 Body Surface Area Calculated 1.67 m2 :59 Temperature 97.7 f Comments: Method: Undefined Pulse 88 /min Comments: Pattern: Regular Respiration Rate 16 /min Comments: Pattern: Undefined BP Systolic 122 mm[Hg] Comments: Patient Position: Sitting; Cuff Location: Left Arm; Cuff Size: Large BP Diastolic 74 mm[Hg] Comments: Patient Position: Sitting; Cuff Location: Left Arm; Cuff Size: Large Weight 0 lb Height 0 in Head Circumference 0.00 cm :49 Temperature 96.3 f Comments: Method: Undefined Pulse 80 /min Comments: Pattern: Regular Respiration Rate 16 /min Comments: Pattern: Undefined BP Systolic 116 mm[Hg] Comments: Patient Position: Sitting; Cuff Location: Right Arm; Cuff Size: Large BP Diastolic 76 mm[Hg] Comments: Patient Position: Sitting; Cuff Location: Right Arm; Cuff Size: Large Weight 145 lb Height 62.25 in Body Mass Index Calculated 26.31 kg/m2 Body Surface Area Calculated 1.67 m2 Head Circumference 0.00 cm :49 Temperature 97.7 f Comments: Method: Undefined Pulse 92 /min Comments: Pattern: Regular Respiration Rate 16 /min Comments: Pattern: Undefined BP Systolic 104 mm[Hg] Comments: Patient Position: Sitting; Cuff Location: Right Arm; Cuff Size: Large BP Diastolic 64 mm[Hg] Comments: Patient Position: Sitting; Cuff Location: Right Arm; Cuff Size: Large Weight 145 lb Height 0 in Head Circumference 0.00 cm :27 Temperature 98 f Comments: Method: Undefined Pulse 88 /min Comments: Pattern: Regular Respiration Rate 16 /min Comments: Pattern: Undefined BP Systolic 146 mm[Hg] Comments: Patient Position: Sitting; Cuff Location: Right Arm; Cuff Size: Standard BP Diastolic 102 mm[Hg] Comments: Patient Position: Sitting; Cuff Location: Right Arm; Cuff Size: Standard Weight 142 lb Height 0 in Head Circumference 0.00 cm :08 Temperature 98.5 f Comments: Method: Undefined Pulse 96 /min Comments: Pattern: Regular Respiration Rate 16 /min Comments: Pattern: Undefined BP Systolic 106 mm[Hg] Comments: Patient Position: Sitting; Cuff Location: Right Arm; Cuff Size: Standard BP Diastolic 74 mm[Hg] Comments: Patient Position: Sitting; Cuff Location: Right Arm; Cuff Size: Standard Weight 141 lb Height 62.5 in Body Mass Index Calculated 25.38 kg/m2 Body Surface Area Calculated 1.66 m2 Head Circumference 0.00 cm :35 Temperature 98.2 f Comments: Method: Oral Pulse 84 /min Comments: Pattern: Regular Respiration Rate 16 /min Comments: Pattern: Unlabored BP Systolic 140 mm[Hg] Comments: Patient Position: Sitting; Cuff Location: Left Arm; Cuff Size: Standard BP Diastolic 74 mm[Hg] Comments: Patient Position: Sitting; Cuff Location: Left Arm; Cuff Size: Standard Weight 0 lb Height 0 in Head Circumference 0.00 cm :04 Pulse 72 /min Comments: Pattern: Regular Respiration Rate 16 /min Comments: Pattern: Unlabored BP Systolic 118 mm[Hg] Comments: Patient Position: Sitting; Cuff Location: Left Arm; Cuff Size: Standard BP Diastolic 64 mm[Hg] Comments: Patient Position: Sitting; Cuff Location: Left Arm; Cuff Size: Standard Weight 0 lb Height 0 in Head Circumference 0.00 cm Results Date Description Value Details [id number] CBC with auto diff Comments: PATIENT NOT FASTINGPERFORMED BY: PRANEETH [id number] [facility] [id number] Information: NURSE DRAW ([id number]) Immature Grans (Abs) 0.0 {x10E3/uL} (Normal) Range: 0.0-0.1 Immature Granulocytes 0 % (Normal) Baso (Absolute) 0.0 {x10E3/uL} (Normal) Range: 0.0-0.2 Eos (Absolute) 0.1 {x10E3/uL} (Normal) Range: 0.0-0.4 Monocytes(Absolute) 0.3 {x10E3/uL} (Normal) Range: 0.1-0.9 Lymphs (Absolute) 2.6 {x10E3/uL} (Normal) Range: 0.7-3.1 Neutrophils (Absolute) 3.7 {x10E3/uL} (Normal) Range: 1.4-7.0 Basos 0 % (Normal) Eos 2 % (Normal) Monocytes 5 % (Normal) Lymphs 38 % (Normal) Neutrophils 55 % (Normal) Platelets 264 {x10E3/uL} (Normal) Range: 150-379 RDW 13.7 % (Normal) Range: 12.3-15.4 MCHC 33.3 g/dL (Normal) Range: 31.5-35.7 MCH 29.4 pg (Normal) Range: 26.6-33.0 MCV 88 fL (Normal) Range: 79-97 Hematocrit 39.3 % (Normal) Range: 34.0-46.6 Hemoglobin 13.1 g/dL (Normal) Range: 11.1-15.9 RBC 4.46 {x10E6/uL} (Normal) Range: 3.77-5.28 WBC 6.8 {x10E3/uL} (Normal) Range: 3.4-10.8 68-Djq-601566:47 METABOLIC PANEL, COMPREHENSIVE Comments: PATIENT NOT FASTINGPERFORMED BY: InteKrin70 [facility] [id number]; fu 07-02-18 DF (95580) ALT (SGPT) 21 [iU]/L (Normal) Range: 0-32 AST (SGOT) 23 [iU]/L (Normal) Range: 0-40 Alkaline Phosphatase 69 [iU]/L (Normal) Range: 39-117 Bilirubin, Total 0.3 mg/dL (Normal) Range: 0.0-1.2 A/G Ratio 1.7 (Normal) Range: 1.2-2.2 Globulin, Total 2.6 g/dL (Normal) Range: 1.5-4.5 Albumin 4.3 g/dL (Normal) Range: 3.5-4.8 Protein, Total 6.9 g/dL (Normal) Range: 6.0-8.5 Calcium 9.3 mg/dL (Normal) Range: 8.7-10.3 Carbon Dioxide, Total 23 mmol/L (Normal) Range: 20-29 Chloride 103 mmol/L (Normal) Range: 96-106 Potassium 4.3 mmol/L (Normal) Range: 3.5-5.2 Sodium 143 mmol/L (Normal) Range: 134-144 BUN/Creatinine Ratio 19 (Normal) Range: 12-28 eGFR If Africn Am 93 mL/min/1.73 (Normal) eGFR If NonAfricn Am 81 mL/min/1.73 (Normal) Creatinine 0.73 mg/dL (Normal) Range: 0.57-1.00 BUN 14 mg/dL (Normal) Range: 8-27 Glucose 99 mg/dL (Normal) Range: 65-99 01-Mzt-68160:38 LIPID PANEL (03816) Comments: PATIENT WAS FASTINGPERFORMED BY: Whisper70 [facility] [id number] LDL/HDL Ratio 1.4 {ratio} (Normal) Range: 0.0-3.2 Comments: LDL/HDL Ratio Men Women 1/2 Avg.Risk 1.0 1.5 Av g.Risk 3.6 3.2 2X Avg.Risk 6.2 5.0 3X Avg.Risk 8.0 6.1 LDL Cholesterol Calc 77 mg/dL (Normal) Range: 0-99 VLDL Cholesterol Eugene 20 mg/dL (Normal) Range: 5-40 HDL Cholesterol 57 mg/dL (Normal) Triglycerides 102 mg/dL (Normal) Range: 0-149 Cholesterol, Total 154 mg/dL (Normal) Range: 100-199 97-Zhj-98484:38 CBC with auto diff (34040) Comments: PATIENT WAS FASTINGPERFORMED BY: [facility] Mzscaa7164 [facility] [id number] Immature Grans (Abs) 0.0 {x10E3/uL} (Normal) Range: 0.0-0.1 Immature Granulocytes 0 % (Normal) Baso (Absolute) 0.0 {x10E3/uL} (Normal) Range: 0.0-0.2 Eos (Absolute) 0.2 {x10E3/uL} (Normal) Range: 0.0-0.4 Monocytes(Absolute) 0.4 {x10E3/uL} (Normal) Range: 0.1-0.9 Lymphs (Absolute) 2.9 {x10E3/uL} (Normal) Range: 0.7-3.1 Neutrophils (Absolute) 3.6 {x10E3/uL} (Normal) Range: 1.4-7.0 Basos 1 % (Normal) Eos 3 % (Normal) Monocytes 6 % (Normal) Lymphs 41 % (Normal) Neutrophils 49 % (Normal) Platelets 227 {x10E3/uL} (Normal) Range: 150-379 RDW 13.6 % (Normal) Range: 12.3-15.4 MCHC 31.8 g/dL (Normal) Range: 31.5-35.7 MCH 28.8 pg (Normal) Range: 26.6-33.0 MCV 91 fL (Normal) Range: 79-97 Hematocrit 39.0 % (Normal) Range: 34.0-46.6 Hemoglobin 12.4 g/dL (Normal) Range: 11.1-15.9 RBC 4.31 {x10E6/uL} (Normal) Range: 3.77-5.28 WBC 7.2 {x10E3/uL} (Normal) Range: 3.4-10.8 :38 METABOLIC PANEL, COMPREHENSIVE Comments: PATIENT WAS FASTINGPERFORMED BY: InteKrin70 [facility] [id number] ([id number]) ALT (SGPT) 20 [iU]/L (Normal) Range: 0-32 AST (SGOT) 21 [iU]/L (Normal) Range: 0-40 Alkaline Phosphatase 71 [iU]/L (Normal) Range: 39-117 Bilirubin, Total 0.4 mg/dL (Normal) Range: 0.0-1.2 A/G Ratio 1.5 (Normal) Range: 1.2-2.2 Globulin, Total 2.5 g/dL (Normal) Range: 1.5-4.5 Albumin 3.7 g/dL (Normal) Range: 3.5-4.8 Protein, Total 6.2 g/dL (Normal) Range: 6.0-8.5 Calcium 8.8 mg/dL (Normal) Range: 8.7-10.3 Carbon Dioxide, Total 26 mmol/L (Normal) Range: 20-29 Chloride 104 mmol/L (Normal) Range: 96-106 Potassium 4.3 mmol/L (Normal) Range: 3.5-5.2 Sodium 144 mmol/L (Normal) Range: 134-144 BUN/Creatinine Ratio 16 (Normal) Range: 12-28 eGFR If Africn Am 83 mL/min/1.73 (Normal) eGFR If NonAfricn Am 72 mL/min/1.73 (Normal) Creatinine 0.81 mg/dL (Normal) Range: 0.57-1.00 BUN 13 mg/dL (Normal) Range: 8-27 Glucose 86 mg/dL (Normal) Range: 65-99 :38 HGB A1C (72221) Comments: PATIENT WAS FASTINGPERFORMED BY: [employer]6370 [facility] [id number] Hemoglobin A1c 5.6 % (Normal) Range: 4.8-5.6 Comments: . Prediabetes: 5.7 - 6.4 Diabetes: >6.4 Glycemic control for adults with diabetes: <7.0 :38 TSH (20925) Comments: PATIENT WAS FASTINGPERFORMED BY: [facility] Pdsejd2404 [facility] [id number] TSH 1.990 {uIU/mL} (Normal) Range: 0.450-4.500 :38 Vitamin D Hydroxy (54206) Comments: PATIENT WAS FASTINGPERFORMED BY: [facility] Fxqtyc9133 [facility] [id number] Vitamin D, 25-Hydroxy 57.3 ng/mL (Normal) Range: 30.0-100.0 Comments: Vitamin D deficiency has been defined by the [place] of[employer] and an Endocrine Society practice guideline as alevel of serum 25-OH vitamin D less than 20 ng/mL (1,2).The Endocrine Society went on to further define vitamin Dinsufficiency as a level between 21 and 29 ng/mL (2).1. IOM ([place] of [employer]). 2010. Dietary reference intakes for calcium and D. Fu [place]: The National Academies Press.2. Castillo MF, [place]ocasta NC, Jerri MACIEL, et al. Evaluation, treatment, and prevention of vitamin D deficiency: an Endocrine Society clinical practice guideline. JCEM. 2010; 96(7):1911-30. :10 LIPID PANEL (32990) Comments: PATIENT WAS FASTINGPERFORMED BY: [facility] Yzlhne3764 [facility] [id number] LDL/HDL Ratio 1.4 {ratio} (Normal) Range: 0.0-3.2 Comments: LDL/HDL Ratio Men Women 1/2 Avg.Risk 1.0 1.5 Av g.Risk 3.6 3.2 2X Avg.Risk 6.2 5.0 3X Avg.Risk 8.0 6.1 LDL Cholesterol Calc 86 mg/dL (Normal) Range: 0-99 VLDL Cholesterol Eugene 14 mg/dL (Normal) Range: 5-40 HDL Cholesterol 63 mg/dL (Normal) Triglycerides 70 mg/dL (Normal) Range: 0-149 Cholesterol, Total 163 mg/dL (Normal) Range: 100-199 :10 CBC with auto diff (29796) Comments: PATIENT WAS FASTINGPERFORMED BY: LabRevettoHoly Cross HospitalRxbvbn1067 [facility] [id number] Immature Grans (Abs) 0.0 {x10E3/uL} (Normal) Range: 0.0-0.1 Immature Granulocytes 0 % (Normal) Baso (Absolute) 0.0 {x10E3/uL} (Normal) Range: 0.0-0.2 Eos (Absolute) 0.2 {x10E3/uL} (Normal) Range: 0.0-0.4 Monocytes(Absolute) 0.3 {x10E3/uL} (Normal) Range: 0.1-0.9 Lymphs (Absolute) 2.5 {x10E3/uL} (Normal) Range: 0.7-3.1 Neutrophils (Absolute) 3.1 {x10E3/uL} (Normal) Range: 1.4-7.0 Basos 1 % (Normal) Eos 3 % (Normal) Monocytes 5 % (Normal) Lymphs 41 % (Normal) Neutrophils 50 % (Normal) Platelets 245 {x10E3/uL} (Normal) Range: 150-379 RDW 13.9 % (Normal) Range: 12.3-15.4 MCHC 33.3 g/dL (Normal) Range: 31.5-35.7 MCH 29.6 pg (Normal) Range: 26.6-33.0 MCV 89 fL (Normal) Range: 79-97 Hematocrit 38.4 % (Normal) Range: 34.0-46.6 Hemoglobin 12.8 g/dL (Normal) Range: 11.1-15.9 RBC 4.33 {x10E6/uL} (Normal) Range: 3.77-5.28 WBC 6.0 {x10E3/uL} (Normal) Range: 3.4-10.8 57-Mrp-55478:10 MICROALBUMIN: CREATININE RATIO Comments: PATIENT WAS FASTINGPERFORMED BY: LabRevettoHealthSouth - Specialty Hospital of UnionUtabzw1684 [facility] [id number] (46041) AND (52228) Alb/Creat Ratio 24.8 {mg/g_creat} (Normal) Range: 0.0-30.0 Albumin, Urine 29.2 ug/mL (Normal) Creatinine, Urine 117.6 mg/dL (Normal) :10 METABOLIC PANEL, COMPREHENSIVE Comments: PATIENT WAS FASTINGPERFORMED BY: LabCoHealthSouth - Specialty Hospital of UnionYmuckn4092 [facility] [id number] (48795) ALT (SGPT) 19 [iU]/L (Normal) Range: 0-32 AST (SGOT) 18 [iU]/L (Normal) Range: 0-40 Alkaline Phosphatase 64 [iU]/L (Normal) Range: 39-117 Bilirubin, Total 0.4 mg/dL (Normal) Range: 0.0-1.2 A/G Ratio 1.6 (Normal) Range: 1.2-2.2 Globulin, Total 2.5 g/dL (Normal) Range: 1.5-4.5 Albumin 3.9 g/dL (Normal) Range: 3.5-4.8 Protein, Total 6.4 g/dL (Normal) Range: 6.0-8.5 Calcium 9.0 mg/dL (Normal) Range: 8.7-10.3 Carbon Dioxide, Total 27 mmol/L (Normal) Range: 18-29 Chloride 102 mmol/L (Normal) Range: 96-106 Potassium 4.2 mmol/L (Normal) Range: 3.5-5.2 Sodium 143 mmol/L (Normal) Range: 134-144 BUN/Creatinine Ratio 15 (Normal) Range: 12-28 eGFR If Africn Am 87 mL/min/1.73 (Normal) eGFR If NonAfricn Am 75 mL/min/1.73 (Normal) Creatinine 0.78 mg/dL (Normal) Range: 0.57-1.00 BUN 12 mg/dL (Normal) Range: 8-27 Glucose 86 mg/dL (Normal) Range: 65-99 :10 HGB A1C (31453) Comments: PATIENT WAS FASTINGPERFORMED BY: LabCoHealthSouth - [facility] Hospital of UnionBqrsuc7072 [facility] [id number] Hemoglobin A1c 5.8 % (Abnormal) Range: 4.8-5.6 Comments: . Pre-diabetes: 5.7 - 6.4 Diabetes: >6.4 Glycemic control for adults with diabetes: <7.0 0-Cyt-495415:25 CBC W/AUTO DIFF WBC Comments: PERFORMED BY: PRANEETH AdScalebill Larios[address] [place] [id number] Information: CLIENT DRAW (82759) Immature Grans (Abs) 0.0 {x10E3/uL} (Normal) Range: 0.0-0.1 Immature Granulocytes 0 % (Normal) Baso (Absolute) 0.0 {x10E3/uL} (Normal) Range: 0.0-0.2 Eos (Absolute) 0.2 {x10E3/uL} (Normal) Range: 0.0-0.4 Monocytes(Absolute) 0.3 {x10E3/uL} (Normal) Range: 0.1-0.9 Lymphs (Absolute) 2.6 {x10E3/uL} (Normal) Range: 0.7-3.1 Neutrophils (Absolute) 3.5 {x10E3/uL} (Normal) Range: 1.4-7.0 Basos 1 % (Normal) Eos 3 % (Normal) Monocytes 5 % (Normal) Lymphs 39 % (Normal) Neutrophils 52 % (Normal) Platelets 263 {x10E3/uL} (Normal) Range: 150-379 RDW 14.4 % (Normal) Range: 12.3-15.4 MCHC 31.4 g/dL (Abnormal) Range: 31.5-35.7 MCH 28.6 pg (Normal) Range: 26.6-33.0 MCV 91 fL (Normal) Range: 79-97 Hematocrit 42.1 % (Normal) Range: 34.0-46.6 Hemoglobin 13.2 g/dL (Normal) Range: 11.1-15.9 Comments: Effective July 03, 2017 the reference interval for Hemoglobin MALES only will be changing to: Males 13-15 years: 12.6 - 17.7 Males >15 years: 13.0 - 17.7 RBC 4.61 {x10E6/uL} (Normal) Range: 3.77-5.28 WBC 6.6 {x10E3/uL} (Normal) Range: 3.4-10.8 28-Kgy-46842:12 TSH (THYROID STIMULATING Comments: PATIENT WAS FASTINGPERFORMED BY: PRANEETH [employer] Vouwxt3580 [facility] [id number] HORMONE) (58882) TSH 1.550 {uIU/mL} (Normal) Range: 0.450-4.500 :12 METABOLIC PANEL, COMPREHENSIVE Comments: PATIENT WAS FASTINGPERFORMED BY: [employer] Mmjaus9076 [facility] [id number] (82553) ALT (SGPT) 14 [iU]/L (Normal) Range: 0-32 AST (SGOT) 20 [iU]/L (Normal) Range: 0-40 Alkaline Phosphatase, S 75 [iU]/L (Normal) Range: 39-117 Bilirubin, Total 0.4 mg/dL (Normal) Range: 0.0-1.2 A/G Ratio 1.6 (Normal) Range: 1.2-2.2 Globulin, Total 2.4 g/dL (Normal) Range: 1.5-4.5 Albumin, Serum 3.9 g/dL (Normal) Range: 3.5-4.8 Protein, Total, Serum 6.3 g/dL (Normal) Range: 6.0-8.5 Calcium, Serum 8.9 mg/dL (Normal) Range: 8.7-10.3 Carbon Dioxide, Total 25 mmol/L (Normal) Range: 18-29 Chloride, Serum 103 mmol/L (Normal) Range: 96-106 Potassium, Serum 4.3 mmol/L (Normal) Range: 3.5-5.2 Sodium, Serum 143 mmol/L (Normal) Range: 134-144 BUN/Creatinine Ratio 19 (Normal) Range: 12-28 eGFR If Africn Am 83 mL/min/1.73 (Normal) eGFR If NonAfricn Am 72 mL/min/1.73 (Normal) Creatinine, Serum 0.81 mg/dL (Normal) Range: 0.57-1.00 BUN 15 mg/dL (Normal) Range: 8-27 Glucose, Serum 84 mg/dL (Normal) Range: 65-99 :12 HGB A1C (81333) Comments: PATIENT WAS FASTINGPERFORMED BY: AdScaleHoly Cross HospitalUcwgqt2435 [facility] [id number] Hemoglobin A1c 5.8 % (Abnormal) Range: 4.8-5.6 Comments: . Pre-diabetes: 5.7 - 6.4 Diabetes: >6.4 Glycemic control for adults with diabetes: <7.0 :12 Vitamin D Hydroxy (93386) Comments: PATIENT WAS FASTINGPERFORMED BY: [employer] Xazfmb1187 [facility] [id number] Vitamin D, 25-Hydroxy 43.2 ng/mL (Normal) Range: 30.0-100.0 Comments: Vitamin D deficiency has been defined by the [place] of[employer]icine and an Endocrine Society practice guideline as alevel of serum 25-OH vitamin D less than 20 ng/mL (1,2).The Endocrine Society went on to further define vitamin Dinsufficiency as a level between 21 and 29 ng/mL (2).1. IOM ([place] of Medicine). 2010. Dietary reference intakes for calcium and D. Fu [place]: The National Academies Press.2. Castillo MF, [place]oc[place] NC, Jerri MACIEL, et al. Evaluation, treatment, and prevention of vitamin D deficiency: an Endocrine Society clinical practice guideline. JCEM. 2010; 96(7):1911-30. :12 LIPID PANEL (27873) Comments: PATIENT WAS FASTINGPERFORMED BY: InteKrin70 [facility] [id number]; elen review on 03/24 LDL/HDL Ratio 1.6 {ratio_units} (Normal) Range: 0.0-3.2 Comments: LDL/HDL Ratio Men Women 1/2 Avg.Risk 1.0 1.5 Av g.Risk 3.6 3.2 2X Avg.Risk 6.2 5.0 3X Avg.Risk 8.0 6.1 LDL Cholesterol Calc 100 mg/dL (Abnormal) Range: 0-99 VLDL Cholesterol Eugene 15 mg/dL (Normal) Range: 5-40 HDL Cholesterol 61 mg/dL (Normal) Triglycerides 73 mg/dL (Normal) Range: 0-149 Cholesterol, Total 176 mg/dL (Normal) Range: 100-199 02-Gkh-501160:46 Vitamin D Hydroxy (99316) Comments: PATIENT WAS FASTINGPERFORMED BY: InteKrin70 [facility] [id number] Vitamin D, 25-Hydroxy 40.8 ng/mL (Normal) Range: 30.0-100.0 Comments: Vitamin D deficiency has been defined by the [place] of[employer]icine and an Endocrine Society practice guideline as alevel of serum 25-OH vitamin D less than 20 ng/mL (1,2).The Endocrine Society went on to further define vitamin Dinsufficiency as a level between 21 and 29 ng/mL (2).1. IOM ([employer] of Medicine). 2010. Dietary reference intakes for calcium and D. Fu [place]: The National AcademP4RC Press.2. Castillo MF, [place]oc[place] NC, Jerri MACIEL, et al. Evaluation, treatment, and prevention of vitamin D deficiency: an Endocrine Society clinical practice guideline. JCEM. 2010; 96(7):1911-30. 15-Amv-409955:46 LIPID PANEL (98672) Comments: PATIENT WAS FASTINGPERFORMED BY: Whisper70 [facility] [id number] LDL/HDL Ratio 1.9 {ratio_units} (Normal) Range: 0.0-3.2 Comments: LDL/HDL Ratio Men Women 1/2 Avg.Risk 1.0 1.5 Av g.Risk 3.6 3.2 2X Avg.Risk 6.2 5.0 3X Avg.Risk 8.0 6.1 LDL Cholesterol Calc 101 mg/dL (Abnormal) Range: 0-99 VLDL Cholesterol Eugene 13 mg/dL (Normal) Range: 5-40 HDL Cholesterol 53 mg/dL (Normal) Triglycerides 65 mg/dL (Normal) Range: 0-149 Cholesterol, Total 167 mg/dL (Normal) Range: 100-199 19-Gdp-775501:46 MICROALBUMIN: CREATININE RATIO Comments: PATIENT WAS FASTINGPERFORMED BY: Whisper70 [employer] [facility] HospitalUgenieAt[facility] [id number] (92295) AND (03470) Microalb/Creat Ratio 12.6 {mg/g_creat} (Normal) Range: 0.0-30.0 Microalbumin, Urine 4.9 ug/mL (Normal) Creatinine, Urine 38.9 mg/dL (Normal) 93-Fxc-528205:46 METABOLIC PANEL, COMPREHENSIVE Comments: PATIENT WAS FASTINGPERFORMED BY: [employer]6370 [facility] [id number] (69518) ALT (SGPT) 15 [iU]/L (Normal) Range: 0-32 AST (SGOT) 21 [iU]/L (Normal) Range: 0-40 Alkaline Phosphatase, S 76 [iU]/L (Normal) Range: 39-117 Bilirubin, Total 0.3 mg/dL (Normal) Range: 0.0-1.2 A/G Ratio 1.5 (Normal) Range: 1.2-2.2 Globulin, Total 2.6 g/dL (Normal) Range: 1.5-4.5 Albumin, Serum 3.9 g/dL (Normal) Range: 3.5-4.8 Protein, Total, Serum 6.5 g/dL (Normal) Range: 6.0-8.5 Calcium, Serum 9.0 mg/dL (Normal) Range: 8.7-10.3 Carbon Dioxide, Total 25 mmol/L (Normal) Range: 18-29 Chloride, Serum 102 mmol/L (Normal) Range: 96-106 Potassium, Serum 4.2 mmol/L (Normal) Range: 3.5-5.2 Sodium, Serum 144 mmol/L (Normal) Range: 134-144 BUN/Creatinine Ratio 18 (Normal) Range: 12-28 eGFR If Africn Am 80 mL/min/1.73 (Normal) eGFR If NonAfricn Am 69 mL/min/1.73 (Normal) Creatinine, Serum 0.84 mg/dL (Normal) Range: 0.57-1.00 BUN 15 mg/dL (Normal) Range: 8-27 Glucose, Serum 86 mg/dL (Normal) Range: 65-99 73-Hei-233227:46 HGB A1C (47257) Comments: PATIENT WAS FASTINGPERFORMED BY: Forerunlin6370 [facility] [id number] Hemoglobin A1c 6.0 % (Abnormal) Range: 4.8-5.6 Comments: . Pre-diabetes: 5.7 - 6.4 Diabetes: >6.4 Glycemic control for adults with diabetes: <7.0 35-Gtg-32842:58 Magnesium (80406) Comments: PATIENT NOT FASTINGPERFORMED BY: [employer]6[address] RoadDublin [place] [id number] BY: [address] [id number] Magnesium, Serum 2.2 mg/dL (Normal) Range: 1.6-2.3 :58 Vitamin B-12 (cyanocobalamin) Comments: PATIENT NOT FASTINGPERFORMED BY: [employer] Nibppx8407 Flores RoadDublin [place] [id number] BY: [address] [id number] (42576) Vitamin B12 849 pg/mL (Normal) Range: 211-946 :58 CCP ANTIBODY (96159) Comments: PATIENT NOT FASTINGPERFORMED BY: [employer] Ynppvj6975 Flores RoadDublin [place] [id number] BY: [address] [id number] CCP Antibodies IgG/IgA 11 {units} (Normal) Range: 0-19 Comments: Negative <20 Weak positive 20 - 39 Moderate positive 40 - 59 Strong positive >59 :58 SED RATE ERYTHROCYTE Comments: PATIENT NOT FASTINGPERFORMED BY: [employer] Mwfhda2939 Flores RoadDublin [place] [id number] BY: [address] [id number] (89728) Sedimentation Rate-Westergren 2 mm/h (Normal) Range: 0-40 :58 C-REACTIVE PROTEIN (52881) Comments: PATIENT NOT FASTINGPERFORMED BY: [employer] Hqppmp4066 Flores RoadDublin [place] [id number] BY: [address] [id number] C-Reactive Protein, Quant 3.4 mg/L (Normal) Range: 0.0-4.9 :58 RHEUMATOID FACTOR-QUANT Comments: PATIENT NOT FASTINGPERFORMED BY: [employer] Mgduiq1927 [address] RoadDublin [place] [id number] BY: BiletuKevin [place] 486847 [facility] [id number] (26307) RA Latex Turbid. <10.0 {IU/mL} (Normal) Range: 0.0-13.9 :58 BOUBACAR (ANTINUCLEAR ANTIBODY) Comments: PATIENT NOT FASTINGPERFORMED BY: LabCoKyle Ville 7388170 [facility] [id number] BY: [address] [id number] (77077) BOUBACAR Direct Negative (Normal) :58 METABOLIC PANEL, Comments: PATIENT NOT FASTINGPERFORMED BY: LabCoKyle [place] 7388170 [facility] [id number] BY: Biletu[address] [id number] COMPREHENSIVE (22882) ALT (SGPT) 20 [iU]/L (Normal) Range: 0-32 AST (SGOT) 18 [iU]/L (Normal) Range: 0-40 Alkaline Phosphatase, S 79 [iU]/L (Normal) Range: 39-117 Bilirubin, Total 0.3 mg/dL (Normal) Range: 0.0-1.2 A/G Ratio 1.5 (Normal) Range: 1.1-2.5 Globulin, Total 2.8 g/dL (Normal) Range: 1.5-4.5 Albumin, Serum 4.2 g/dL (Normal) Range: 3.5-4.8 Protein, Total, Serum 7.0 g/dL (Normal) Range: 6.0-8.5 Calcium, Serum 9.0 mg/dL (Normal) Range: 8.7-10.3 Carbon Dioxide, Total 23 mmol/L (Normal) Range: 18-29 Chloride, Serum 102 mmol/L (Normal) Range: 96-106 Potassium, Serum 4.1 mmol/L (Normal) Range: 3.5-5.2 Sodium, Serum 143 mmol/L (Normal) Range: 134-144 BUN/Creatinine Ratio 15 (Normal) Range: 11-26 eGFR If Africn Am 82 mL/min/1.73 (Normal) eGFR If NonAfricn Am 71 mL/min/1.73 (Normal) Creatinine, Serum 0.82 mg/dL (Normal) Range: 0.57-1.00 BUN 12 mg/dL (Normal) Range: 8-27 Glucose, Serum 87 mg/dL (Normal) Range: 65-99 55-Jyy-02119:58 CBC with auto diff Comments: PATIENT NOT FASTINGPERFORMED BY: CB [facility] Kfpmqk2006 [facility] [id number] BY: BN [facility] Fohpmcnqon5751 [facility] [id number] (41672) Immature Grans (Abs) 0.0 {x10E3/uL} (Normal) Range: 0.0-0.1 Immature Granulocytes 0 % (Normal) Baso (Absolute) 0.0 {x10E3/uL} (Normal) Range: 0.0-0.2 Eos (Absolute) 0.1 {x10E3/uL} (Normal) Range: 0.0-0.4 Monocytes(Absolute) 0.3 {x10E3/uL} (Normal) Range: 0.1-0.9 Lymphs (Absolute) 2.6 {x10E3/uL} (Normal) Range: 0.7-3.1 Neutrophils (Absolute) 4.3 {x10E3/uL} (Normal) Range: 1.4-7.0 Basos 0 % (Normal) Eos 2 % (Normal) Monocytes 4 % (Normal) Lymphs 35 % (Normal) Neutrophils 59 % (Normal) Platelets 262 {x10E3/uL} (Normal) Range: 150-379 RDW 13.3 % (Normal) Range: 12.3-15.4 MCHC 32.5 g/dL (Normal) Range: 31.5-35.7 MCH 28.9 pg (Normal) Range: 26.6-33.0 MCV 89 fL (Normal) Range: 79-97 Hematocrit 43.1 % (Normal) Range: 34.0-46.6 Hemoglobin 14.0 g/dL (Normal) Range: 11.1-15.9 RBC 4.85 {x10E6/uL} (Normal) Range: 3.77-5.28 WBC 7.4 {x10E3/uL} (Normal) Range: 3.4-10.8 :47 CBC W/AUTO DIFF WBC Comments: PATIENT WAS FASTINGPERFORMED BY: [facility]6370 [facility] [id number] Information: [id number] (62073) Immature Grans (Abs) 0.0 {x10E3/uL} (Normal) Range: 0.0-0.1 Immature Granulocytes 0 % (Normal) Baso (Absolute) 0.0 {x10E3/uL} (Normal) Range: 0.0-0.2 Eos (Absolute) 0.1 {x10E3/uL} (Normal) Range: 0.0-0.4 Monocytes(Absolute) 0.6 {x10E3/uL} (Normal) Range: 0.1-0.9 Lymphs (Absolute) 2.2 {x10E3/uL} (Normal) Range: 0.7-3.1 Neutrophils (Absolute) 3.0 {x10E3/uL} (Normal) Range: 1.4-7.0 Basos 1 % (Normal) Eos 1 % (Normal) Monocytes 10 % (Normal) Lymphs 37 % (Normal) Neutrophils 51 % (Normal) Platelets 220 {x10E3/uL} (Normal) Range: 150-379 RDW 13.8 % (Normal) Range: 12.3-15.4 MCHC 32.2 g/dL (Normal) Range: 31.5-35.7 MCH 28.2 pg (Normal) Range: 26.6-33.0 MCV 88 fL (Normal) Range: 79-97 Hematocrit 42.5 % (Normal) Range: 34.0-46.6 Hemoglobin 13.7 g/dL (Normal) Range: 11.1-15.9 RBC 4.85 {x10E6/uL} (Normal) Range: 3.77-5.28 WBC 5.9 {x10E3/uL} (Normal) Range: 3.4-10.8 :47 METABOLIC PANEL, COMPREHENSIVE Comments: PATIENT WAS FASTINGPERFORMED BY: [facility] [facility] [id number] ([id number]) ALT (SGPT) 21 [iU]/L (Normal) Range: 0-32 AST (SGOT) 26 [iU]/L (Normal) Range: 0-40 Alkaline Phosphatase, S 78 [iU]/L (Normal) Range: 39-117 Bilirubin, Total 0.3 mg/dL (Normal) Range: 0.0-1.2 A/G Ratio 1.6 (Normal) Range: 1.1-2.5 Globulin, Total 2.5 g/dL (Normal) Range: 1.5-4.5 Albumin, Serum 3.9 g/dL (Normal) Range: 3.5-4.8 Protein, Total, Serum 6.4 g/dL (Normal) Range: 6.0-8.5 Calcium, Serum 8.7 mg/dL (Normal) Range: 8.7-10.3 Carbon Dioxide, Total 25 mmol/L (Normal) Range: 18-29 Chloride, Serum 100 mmol/L (Normal) Range: 97-108 Potassium, Serum 4.2 mmol/L (Normal) Range: 3.5-5.2 Sodium, Serum 140 mmol/L (Normal) Range: 134-144 BUN/Creatinine Ratio 18 (Normal) Range: 11-26 eGFR If Africn Am 85 mL/min/1.73 (Normal) eGFR If NonAfricn Am 74 mL/min/1.73 (Normal) Creatinine, Serum 0.80 mg/dL (Normal) Range: 0.57-1.00 BUN 14 mg/dL (Normal) Range: 8-27 Glucose, Serum 81 mg/dL (Normal) Range: 65-99 [id number]:47 LIPID PANEL ([id number]) Comments: PATIENT WAS FASTINGPERFORMED BY: [facility] [facility] [id number]; normal and has apt LDL/HDL Ratio 1.5 {ratio_units} (Normal) Range: 0.0-3.2 Comments: LDL/HDL Ratio Men Women 1/2 Avg.Risk 1.0 1.5 Av g.Risk 3.6 3.2 2X Avg.Risk 6.2 5.0 3X Avg.Risk 8.0 6.1 LDL Cholesterol Calc 81 mg/dL (Normal) Range: 0-99 VLDL Cholesterol [place] 16 mg/dL (Normal) Range: 5-40 HDL Cholesterol 55 mg/dL (Normal) Comments: According to ATP-III Guidelines, HDL-C >59 mg/dL is considered anegative risk factor for CHD. Triglycerides 78 mg/dL (Normal) Range: 0-149 Cholesterol, Total 152 mg/dL (Normal) Range: 100-199 :47 Vitamin D Hydroxy ([id number]) Comments: PATIENT WAS FASTINGPERFORMED BY: [facility] [id number] [facility] [id number] Vitamin D, 25-Hydroxy 37.8 ng/mL (Normal) Range: 30.0-100.0 Comments: Vitamin D deficiency has been defined by the [place] [employer] and an Endocrine Society practice guideline as alevel of serum 25-OH vitamin D less than 20 ng/mL (1,2).The Endocrine Society went on to further define vitamin Dinsufficiency as a level between 21 and 29 ng/mL (2).1. IOM ([place] [employer]). 2010. Dietary reference intakes for calcium and D. [place]: The National Academies Press.2. Yocasta Osei, Jerri MACIEL, et al. Evaluation, treatment, and prevention of vitamin D deficiency: an Endocrine Society clinical practice guideline. JCEM. 2010; 96(7):1911-30. :49 Vitamin D Hydroxy ([id number]) Comments: PATIENT WAS FASTINGPERFORMED BY: [facility] Bmymsl5590 [facility] [id number] Vitamin D, 25-Hydroxy 38.7 ng/mL (Normal) Range: 30.0-100.0 Comments: Vitamin D deficiency has been defined by the [place] of[employer] and an Endocrine Society practice guideline as alevel of serum 25-OH vitamin D less than 20 ng/mL (1,2).The Endocrine Society went on to further define vitamin Dinsufficiency as a level between 21 and 29 ng/mL (2).1. IOM ([place] [employer] of Medicine). 2010. Dietary reference intakes for calcium and D. Fu [place]: The National Academies Press.2. Yocasta Osei, Jerri MACIEL, et al. Evaluation, treatment, and prevention of vitamin D deficiency: an Endocrine Society clinical practice guideline. JCEM. 2010; 96(7):1911-30. :49 METABOLIC PANEL, Comments: PATIENT WAS FASTINGPERFORMED BY: [facility] UnionBzuvmf8444 [facility] [id number] Information: [id number]; apt. 04-[birth year] COMPREHENSIVE (32907) ALT (SGPT) 18 [iU]/L (Normal) Range: 0-32 AST (SGOT) 20 [iU]/L (Normal) Range: 0-40 Alkaline Phosphatase, S 78 [iU]/L (Normal) Range: 39-117 Bilirubin, Total 0.3 mg/dL (Normal) Range: 0.0-1.2 A/G Ratio 1.5 (Normal) Range: 1.1-2.5 Globulin, Total 2.5 g/dL (Normal) Range: 1.5-4.5 Albumin, Serum 3.8 g/dL (Normal) Range: 3.5-4.8 Protein, Total, Serum 6.3 g/dL (Normal) Range: 6.0-8.5 Calcium, Serum 9.1 mg/dL (Normal) Range: 8.7-10.3 Carbon Dioxide, Total 24 mmol/L (Normal) Range: 18-29 Chloride, Serum 104 mmol/L (Normal) Range: 97-108 Potassium, Serum 4.0 mmol/L (Normal) Range: 3.5-5.2 Sodium, Serum 142 mmol/L (Normal) Range: 134-144 BUN/Creatinine Ratio 15 (Normal) Range: 11-26 eGFR If Africn Am 69 mL/min/1.73 (Normal) eGFR If NonAfricn Am 60 mL/min/1.73 (Normal) Creatinine, Serum 0.96 mg/dL (Normal) Range: 0.57-1.00 BUN 14 mg/dL (Normal) Range: 8-27 Glucose, Serum 85 mg/dL (Normal) Range: 65-99 :19 CBC With Differential/Platelet Comments: PATIENT WAS FASTINGPERFORMED BY: [facility] UnionCrusyl0243 [facility] [id number] Information: [id number] Immature Grans (Abs) 0.0 {x10E3/uL} (Normal) Range: 0.0-0.1 Immature Granulocytes 0 % (Normal) Baso (Absolute) 0.0 {x10E3/uL} (Normal) Range: 0.0-0.2 Eos (Absolute) 0.2 {x10E3/uL} (Normal) Range: 0.0-0.4 Monocytes(Absolute) 0.6 {x10E3/uL} (Normal) Range: 0.1-0.9 Lymphs (Absolute) 2.0 {x10E3/uL} (Normal) Range: 0.7-3.1 Neutrophils (Absolute) 6.8 {x10E3/uL} (Normal) Range: 1.4-7.0 Basos 0 % (Normal) Eos 2 % (Normal) Monocytes 6 % (Normal) Lymphs 21 % (Normal) Neutrophils 71 % (Normal) Platelets 275 {x10E3/uL} (Normal) Range: 150-379 RDW 14.0 % (Normal) Range: 12.3-15.4 MCHC 32.0 g/dL (Normal) Range: 31.5-35.7 MCH 28.7 pg (Normal) Range: 26.6-33.0 MCV 90 fL (Normal) Range: 79-97 Hematocrit 40.9 % (Normal) Range: 34.0-46.6 Hemoglobin 13.1 g/dL (Normal) Range: 11.1-15.9 RBC 4.57 {x10E6/uL} (Normal) Range: 3.77-5.28 WBC 9.7 {x10E3/uL} (Normal) Range: 3.4-10.8 :19 Comp. Metabolic Panel (14) Comments: PATIENT WAS FASTINGPERFORMED BY: [facility] UnionTxcklp1958 [facility] [id number] ALT (SGPT) 15 [iU]/L (Normal) Range: 0-32 AST (SGOT) 18 [iU]/L (Normal) Range: 0-40 Alkaline Phosphatase, S 80 [iU]/L (Normal) Range: 39-117 Bilirubin, Total 0.3 mg/dL (Normal) Range: 0.0-1.2 A/G Ratio 1.7 (Normal) Range: 1.1-2.5 Globulin, Total 2.3 g/dL (Normal) Range: 1.5-4.5 Albumin, Serum 3.8 g/dL (Normal) Range: 3.5-4.8 Protein, Total, Serum 6.1 g/dL (Normal) Range: 6.0-8.5 Calcium, Serum 8.9 mg/dL (Normal) Range: 8.7-10.3 Carbon Dioxide, Total 24 mmol/L (Normal) Range: 18-29 Chloride, Serum 102 mmol/L (Normal) Range: 97-108 Potassium, Serum 4.3 mmol/L (Normal) Range: 3.5-5.2 Sodium, Serum 141 mmol/L (Normal) Range: 134-144 BUN/Creatinine Ratio 19 (Normal) Range: 11-26 eGFR If Africn Am 81 mL/min/1.73 (Normal) eGFR If NonAfricn Am 70 mL/min/1.73 (Normal) Creatinine, Serum 0.84 mg/dL (Normal) Range: 0.57-1.00 BUN 16 mg/dL (Normal) Range: 8-27 Glucose, Serum 101 mg/dL (Abnormal) Range: 65-99 63-Ztv-97105:19 Lipid Panel With LDL/HDL Comments: PATIENT WAS FASTINGPERFORMED BY: [facility] [id number] Ratio LDL/HDL Ratio 2.2 {ratio_units} Range: 0.0-3.2 (Normal) Comments: LDL/HDL Ratio Men Women 1/2 Avg.Risk 1.0 1.5 Av g.Risk 3.6 3.2 2X Avg.Risk 6.2 5.0 3X Avg.Risk 8.0 6.1 LDL Cholesterol Calc 115 mg/dL (Abnormal) Range: 0-99 VLDL Cholesterol Eugene 16 mg/dL (Normal) Range: 5-40 HDL Cholesterol 53 mg/dL (Normal) Comments: According to ATP-III Guidelines, HDL-C >59 mg/dL is considered anegative risk factor for CHD. Triglycerides 80 mg/dL (Normal) Range: 0-149 Cholesterol, Total 184 mg/dL (Normal) Range: 100-199 19-Dec-2014 TSH 3.600 {uIU/mL} Comments: PATIENT WAS FASTINGPERFORMED BY: [facility]per70 [facility] [id number] 7:19 (Normal) Range: 0.450-4.500 19-Dec-2014 Vitamin D, 25-Hydroxy 32.3 ng/mL (Normal) Comments: PATIENT WAS FASTINGPERFORMED BY: [employer] Leipnx1525 [facility] [id number] 7:19 Range: 30.0-100.0 Comments: Vitamin D deficiency has been defined by the [place] of[employer] and an Endocrine Society practice guideline as alevel of serum 25-OH vitamin D less than 20 ng/mL (1,2).The Endocrine Society went on to further define vitamin Dinsufficiency as a level between 21 and 29 ng/mL (2).1. IOM ([employer] of Medicine). 2010. Dietary reference intakes for calcium and D. Fu [place]: The National Academies Press.2. Castillo MF, Yocasta SHABAZZ, Jerri MACIEL, et al. Evaluation, treatment, and prevention of vitamin D deficiency: an Endocrine Society clinical practice guideline. JCEM. 2010; 96(7):1911-30. 31-Ggn-069255:09 CBC W/AUTO DIFF WBC Comments: PATIENT NOT FASTINGPERFORMED BY: [facility] Obumnf6405 [facility] [id number] Information: [id number] (18707) Immature Grans (Abs) 0.0 {x10E3/uL} (Normal) Range: 0.0-0.1 Immature Granulocytes 0 % (Normal) Baso (Absolute) 0.0 {x10E3/uL} (Normal) Range: 0.0-0.2 Eos (Absolute) 0.2 {x10E3/uL} (Normal) Range: 0.0-0.4 Monocytes(Absolute) 0.4 {x10E3/uL} (Normal) Range: 0.1-0.9 Lymphs (Absolute) 2.5 {x10E3/uL} (Normal) Range: 0.7-3.1 Neutrophils (Absolute) 3.5 {x10E3/uL} (Normal) Range: 1.4-7.0 Basos 1 % (Normal) Eos 3 % (Normal) Monocytes 5 % (Normal) Lymphs 38 % (Normal) Neutrophils 53 % (Normal) Platelets 274 {x10E3/uL} (Normal) Range: 150-379 RDW 13.6 % (Normal) Range: 12.3-15.4 MCHC 32.4 g/dL (Normal) Range: 31.5-35.7 MCH 28.3 pg (Normal) Range: 26.6-33.0 MCV 87 fL (Normal) Range: 79-97 Hematocrit 41.1 % (Normal) Range: 34.0-46.6 Hemoglobin 13.3 g/dL (Normal) Range: 11.1-15.9 RBC 4.70 {x10E6/uL} (Normal) Range: 3.77-5.28 WBC 6.7 {x10E3/uL} (Normal) Range: 3.4-10.8 89-Gef-717165:09 METABOLIC PANEL, COMPREHENSIVE Comments: PATIENT NOT FASTINGPERFORMED BY: [facility] Sqzjer9172 [facility] [id number] ([id number]) ALT (SGPT) 16 [iU]/L (Normal) Range: 0-32 AST (SGOT) 17 [iU]/L (Normal) Range: 0-40 Alkaline Phosphatase, S 85 [iU]/L (Normal) Range: 39-117 Bilirubin, Total 0.3 mg/dL (Normal) Range: 0.0-1.2 A/G Ratio 1.6 (Normal) Range: 1.1-2.5 Globulin, Total 2.5 g/dL (Normal) Range: 1.5-4.5 Albumin, Serum 4.0 g/dL (Normal) Range: 3.5-4.8 Protein, Total, Serum 6.5 g/dL (Normal) Range: 6.0-8.5 Calcium, Serum 9.2 mg/dL (Normal) Range: 8.6-10.2 Carbon Dioxide, Total 26 mmol/L (Normal) Range: 18-29 Chloride, Serum 102 mmol/L (Normal) Range: 97-108 Potassium, Serum 4.4 mmol/L (Normal) Range: 3.5-5.2 Sodium, Serum 141 mmol/L (Normal) Range: 134-144 BUN/Creatinine Ratio 20 (Normal) Range: 11-26 eGFR If Africn Am 85 mL/min/1.73 (Normal) eGFR If NonAfricn Am 74 mL/min/1.73 (Normal) Creatinine, Serum 0.81 mg/dL (Normal) Range: 0.57-1.00 BUN 16 mg/dL (Normal) Range: 8-27 Glucose, Serum 81 mg/dL (Normal) Range: 65-99 54-Eem-126014:09 LIPID PANEL (00234) Comments: PATIENT NOT FASTINGPERFORMED BY: [facility]6370 [facility] [id number] LDL/HDL Ratio 2.1 {ratio_units} (Normal) Range: 0.0-3.2 Comments: LDL/HDL Ratio Men Women 1/2 Avg.Risk 1.0 1.5 Av g.Risk 3.6 3.2 2X Avg.Risk 6.2 5.0 3X Avg.Risk 8.0 6.1 LDL Cholesterol Calc 118 mg/dL (Abnormal) Range: 0-99 VLDL Cholesterol Eugene 18 mg/dL (Normal) Range: 5-40 HDL Cholesterol 56 mg/dL (Normal) Comments: According to ATP-III Guidelines, HDL-C >59 mg/dL is considered anegative risk factor for CHD. Triglycerides 92 mg/dL (Normal) Range: 0-149 Cholesterol, Total 192 mg/dL (Normal) Range: 100-199 61-Szc-370549:09 Vitamin D Hydroxy (02603) Comments: PATIENT NOT FASTINGPERFORMED BY: [facility]6370 [facility] [id number] Vitamin D, 25-Hydroxy 37.4 ng/mL (Normal) Range: 30.0-100.0 Comments: Vitamin D deficiency has been defined by the [place] of[employer] and an Endocrine Society practice guideline as alevel of serum 25-OH vitamin D less than 20 ng/mL (1,2).The Endocrine Society went on to further define vitamin Dinsufficiency as a level between 21 and 29 ng/mL (2).1. IOM ([employer] of Medicine). 2010. Dietary reference intakes for calcium and D. Fu [place]: The National Academies Press.2. Castillo MF, Yocasta NC, Jerri MACIEL, et al. Evaluation, treatment, and prevention of vitamin D deficiency: an Endocrine Society clinical practice guideline. JCEM. 2010; 96(7):1911-30. 23-Ctv-35065:43 LIPID PANEL (91862) Comments: PATIENT WAS FASTINGPERFORMED BY: [facility] UnionOnogpx5210 [facility] [id number] LDL/HDL Ratio 1.6 {ratio_units} (Normal) Range: 0.0-3.2 LDL Cholesterol Calc 103 mg/dL (Abnormal) Range: 0-99 VLDL Cholesterol Eugene 11 mg/dL (Normal) Range: 5-40 HDL Cholesterol 63 mg/dL (Normal) Comments: According to ATP-III Guidelines, HDL-C >59 mg/dL is considered anegative risk factor for CHD. Triglycerides 57 mg/dL (Normal) Range: 0-149 Cholesterol, Total 177 mg/dL (Normal) Range: 100-199 :43 CBC WITH MANUAL DIFF Comments: PATIENT WAS FASTINGPERFORMED BY: [facility] UnionOjsevm7507 [facility] [id number] Information: [id number] (17154) Immature Grans (Abs) 0.0 {x10E3/uL} (Normal) Range: 0.0-0.1 Immature Granulocytes 0 % (Normal) Range: 0-2 Baso (Absolute) 0.0 {x10E3/uL} (Normal) Range: 0.0-0.2 Eos (Absolute) 0.2 {x10E3/uL} (Normal) Range: 0.0-0.4 Monocytes(Absolute) 0.4 {x10E3/uL} (Normal) Range: 0.1-0.9 Lymphs (Absolute) 2.7 {x10E3/uL} (Normal) Range: 0.7-3.1 Neutrophils (Absolute) 2.9 {x10E3/uL} (Normal) Range: 1.4-7.0 Basos 1 % (Normal) Range: 0-3 Eos 3 % (Normal) Range: 0-5 Monocytes 6 % (Normal) Range: 4-12 Lymphs 43 % (Normal) Range: 14-46 Neutrophils 47 % (Normal) Range: 40-74 Platelets 234 {x10E3/uL} (Normal) Range: 155-379 RDW 13.9 % (Normal) Range: 12.3-15.4 MCHC 32.4 g/dL (Normal) Range: 31.5-35.7 MCH 29.1 pg (Normal) Range: 26.6-33.0 MCV 90 fL (Normal) Range: 79-97 Hematocrit 42.6 % (Normal) Range: 34.0-46.6 Hemoglobin 13.8 g/dL (Normal) Range: 11.1-15.9 RBC 4.75 {x10E6/uL} (Normal) Range: 3.77-5.28 WBC 6.2 {x10E3/uL} (Normal) Range: 3.4-10.8 :43 METABOLIC PANEL, COMPREHENSIVE Comments: PATIENT WAS FASTINGPERFORMED BY: [facility] UnionIgylte2010 [facility] [id number] ([id number]) ALT (SGPT) 20 [iU]/L (Normal) Range: 0-32 AST (SGOT) 23 [iU]/L (Normal) Range: 0-40 Alkaline Phosphatase, S 67 [iU]/L (Normal) Range: 47-112 Bilirubin, Total 0.3 mg/dL (Normal) Range: 0.0-1.2 A/G Ratio 1.4 (Normal) Range: 1.1-2.5 Globulin, Total 2.7 g/dL (Normal) Range: 1.5-4.5 Albumin, Serum 3.8 g/dL (Normal) Range: 3.6-4.8 Protein, Total, Serum 6.5 g/dL (Normal) Range: 6.0-8.5 Calcium, Serum 9.1 mg/dL (Normal) Range: 8.6-10.2 Carbon Dioxide, Total 24 mmol/L (Normal) Range: 19-28 Chloride, Serum 104 mmol/L (Normal) Range: 97-108 Potassium, Serum 4.2 mmol/L (Normal) Range: 3.5-5.2 Sodium, Serum 141 mmol/L (Normal) Range: 134-144 BUN/Creatinine Ratio 20 (Normal) Range: 11-26 eGFR If Africn Am 83 mL/min/1.73 (Normal) eGFR If NonAfricn Am 72 mL/min/1.73 (Normal) Creatinine, Serum 0.83 mg/dL (Normal) Range: 0.57-1.00 BUN 17 mg/dL (Normal) Range: 8-27 Glucose, Serum 89 mg/dL (Normal) Range: 65-99 :43 Vitamin D Hydroxy (33477) Comments: PATIENT WAS FASTINGPERFORMED BY: [facility] Zkkxyg6365 [facility] [place] [id number] Vitamin D, 25-Hydroxy 43.0 ng/mL (Normal) Range: 30.0-100.0 Comments: Vitamin D deficiency has been defined by the [place] of[employer] and an Endocrine Society practice guideline as alevel of serum 25-OH vitamin D less than 20 ng/mL (1,2).The Endocrine Society went on to further define vitamin Dinsufficiency as a level between 21 and 29 ng/mL (2).1. IOM ([employer] of Medicine). 2010. Dietary reference intakes for calcium and D. Fu [place]: The National Academies Press.2. Castillo MF, Yocasta SHABAZZ, Jerri MACIEL, et al. Evaluation, treatment, and prevention of vitamin D deficiency: an Endocrine Society clinical practice guideline. JCEM. 2010; 96(7):1911-30. :43 TSH (31331) Comments: PATIENT WAS FASTINGPERFORMED BY: [facility] Opgoup6866 [facility] [id number] TSH 2.870 {uIU/mL} (Normal) Range: 0.450-4.500 :07 BILAT SCRN DIGITAL & CAD Radiology Report See Note (Normal) Comments: MAMMOGRAPHY - BILATERAL SCREENING REASON FOR EXAM: Female, 67 years old. Routine annual screeningexamination. PERTINENT HISTORY: Non-contributory. TECHNIQUE: Digital examination. Med iolateral ob lique (MLO) andcraniocaudad (CC) views of both breasts were obtained. CAD: CAD wasperformed on this study. COMPARISON: Comparison is made with prior studies dated August 30nd May 31, 2010. FINDINGS:The breast composition is composed of scattered fibroglandular densities. There are no dominant masses or suspicious calcifications. No other significant abnormalities are identified. There maciel s been nosignificant change since the prior study. IMPRESSION:Stable bilateral screening mammogram. Yearly follow-up recommended. (A) ASSESSMENT CATEGORY:BIRADS Category 2: Benign finding(s). A let ter regarding these resultswill be sent to the patient by the facility within 30 days. Approximately 10% of breast cancers are not detected by mammography. Anormal mammogram should not delay biopsy of a clinically suspiciousabnormality. Signed:Samuel Leal M.D.September 14, 2012 at 2:38:45 PM [id number] Signed GP/GP If you are the referring physician and would like to consult with theradiologist who provided this interpretation, please contact Allen Pak at [phone]. If this radiologist is unavailable, youwill be directed to another radiologist to assist. I f you are a patient with a question regarding this report, pleasecontactyour referring physician directly. Professional Interpretation Provided By: [employer], Phone , The se documents contain legally protected and confidential healthinformation intended only for the use of the individual or entity namedabove. If you are not the intended recipient, you are hereby notified thatany disclosure, copying, distribution, or other use of these documents isstrictly prohibited. If you have received this information in error,pleasenotify the sender immediately and arrange for the r eturn or destructionofthese documents. Dictated on 09/14/12 1407 by Cosme Leal MDranscribed on 09/14/12 1445 by ITS IMPORTSign by Samuel Leal MD on 09/14/12 1446 Sign by: Samuel Leal MD 06-Aug-20129:37 Rapid Flu (15456 x 2) Influenza A Ag B Positive (Normal) 86-Osf-946514:27 MYOCARD PERF STRESS/REST MULT Radiology Report See Note (Normal) Comments: STRESS NUCLEAR STUDY HISTORYThis is a 66-year-old female who presents with an abnormal CT scandemonstrating coronary calcification. TECHNIQUEThe patient was injected with 10 mCi of Tc99m Cardiolite and restingSPECT images were acquired in the horizontal long, vertical long andshort axes views. The patient underwent stress using a Mendoza protocoland exercised 6 minutes, reaching a peak heart rate of 15 7, which was 103% of maximum predicted. At peak stress, the patient was injected with 34mCi of Tc99m Cardiolite and stress SPECT images were acquired in thehorizontal long, vertical long, and short axe s views. INTERPRETATIONResting images demonstrate a subtle decrease in mid anteroseptal activity, which is again demonstrated with stress with brightening at endsystole and normal wall motion consiste nt with soft tissue/breastattenuation. The remainder of the left ventricle appears to be wellperfused both at rest and with stress. There are no significant fixeddefects to suggest infarct. There are no reversible defects developingwith stress to suggest inducible ischemia. Calculated ejection fractionby gated SPECT imaging was 58% with normal wall motion and brightening inall segments. CONCLUSION 1. Subtle decrease in mid anteroseptal activity at rest and with stresslikely representing soft tissue/breast attenuation.2. No significant fixed defects to suggest infarct.3. No reversible defects d eveloping with stress to suggest inducibleischemia. Dictated on 03/21/12 1104 by Tony Palacios MDrosTranscribed on 03/21/12 1327 by Anselmo NOEL by Oscar Palacios MD on 03/21/12 1821 Sign by: Oscar Palacios MD 23-Glr-240851:48 Vitamin D Hydroxy (40434) Comments: PATIENT NOT FASTINGPERFORMED BY: [facility] UnionKfbbcp3576 [facility] [id number] Vitamin D, 25-Hydroxy 46.3 ng/mL (Normal) Range: 30.0-100.0 Comments: Vitamin D deficiency has been defined by the [place] of[employer] and an Endocrine Society practice guideline as alevel of serum 25-OH vitamin D less than 20 ng/mL (1,2).The Endocrine Society went on to further define vitamin Dinsufficiency as a level between 21 and 29 ng/mL (2).1. IOM ([employer] of [employer]). 2010. Dietary reference intakes for calcium and D. Fu [place]: The National Academies Press.2. Castillo MF, Yocasta NC, Jerri MACIEL, et al. Evaluation, treatment, and prevention of vitamin D deficiency: an Endocrine Society clinical practice guideline. JCEM. 2010; 96(7):1911-30. :48 Protein Electro, Random Urine Comments: PATIENT NOT FASTINGPERFORMED BY: [employer] Rtmbnf4748 [facility] [id number] Please note: SPRCS (Normal) Comments: Protein electrophoresis scan will follow via computer, mail, orcourier delivery. M-Dereck, % Not Observed % (Normal) Gamma Globulin, U 29.4 % (Normal) Beta Globulin, U 22.4 % (Normal) Gorjr-0-Uwucrgxr, U 17.0 % (Normal) Zrjgm-2-Oqrblpoo, U 5.0 % (Normal) Albumin, U 26.3 % (Normal) Protein,Total,Urine 2.1 mg/dL (Normal) Range: 0.0-15.0 :48 PARATHORMONE (76506) Comments: PATIENT NOT FASTINGPERFORMED BY: [facility] Cmmctt0895 [facility] [id number] PTH, Intact 19 pg/mL (Normal) Range: 15-65 :48 Protein Electro.,S Comments: PATIENT NOT FASTINGPERFORMED BY: [facility] Clerts5309 [facility] [id number] Please note: SPRCS (Normal) Comments: Protein electrophoresis scan will follow via computer, mail, orcourier delivery. A/G Ratio 1.5 (Normal) Range: 0.7-2.0 Globulin, Total 2.8 g/dL (Normal) Range: 2.0-4.5 M-Dereck Not Observed g/dL (Normal) Gamma Globulin 0.9 g/dL (Normal) Range: 0.5-1.6 Beta Globulin 1.0 g/dL (Normal) Range: 0.6-1.3 Crgra-9-Gughjhwt 0.6 g/dL (Normal) Range: 0.4-1.2 Nssyq-4-Zaompqnj 0.2 g/dL (Normal) Range: 0.1-0.4 Albumin 4.2 g/dL (Normal) Range: 3.2-5.6 Protein, Total, Serum 7.0 g/dL (Normal) Range: 6.0-8.5 :48 TSH (79773) Comments: PATIENT NOT FASTINGPERFORMED BY: [facility] Eatwel4812 [facility] [place] [id number] TSH 1.760 {uIU/mL} (Normal) Range: 0.450-4.500 03-Vkt-480734:30 CHEST WITHOUT CONTRAST Radiology Report See Note (Normal) Comments: PROCEDURE: CT CHEST WITHOUT CONTRAST REASON FOR EXAM: Female, 66 years old. Follow-up for lung nodule. RADIATION DOSAGE (If Supplied By Facility): ( 10.91 ) mGy, ( 346.68 )mGycm TECHNIQUE: High resolution transaxial imaging was performed without theadministration of intravenous contrast material. COMPARISON: Comparison is made with prior study dated June 29, 2011. FINDINGS:There is a 1.1 -cm hypodensity in the left lobe of the thyroid. Asubcentimeter hypodensity is seen in the anterior aspect of the rightlobeof the thyroid. There are emphysematous changes of the lungs with emphysematou s blebs.Thepreviously seen right upper and lower lobe nodules are unchanged. Thereisno demonstrated pleural abnormality. Normal heart and pericardium. There are calcifications of the coronaryarteries. There are multiple small lymph nodes within the mediastinum, which arenormal in size and morphology most compatible with reactive lymphhyperplasia. Normal hilar regions. Normal unenhanced pulmonaryart eries.There is atherosclerotic calcification of the aortic arch with tortuosityand elongation of the aortic arch and descending thoracic aorta. There are multi- level degenerative changes of the thoracic spine. There are multiple calcified splenic granulomas. IMPRESSION:Stable right pulmonary nodules.Emphysematous changes. Signed:Samuel Leal M.D.February 09, 2012 at 8:57:03 AM [id number] onically Signed GP/GP If you are the referring physician and would like to consult with theradiologist who provided this interpretation, please contact Allen Pak at [phone]. If this r adiologist is unavailable, youwill be directed to another radiologist to assist. If you are a patient with a question regarding this report, pleasecontactyour referring physician directly. Professional Interpretation Provided By: [employer], Phone , Dictated on 02/08/12 1137 by Bo BRADLEY,Cosmeranscribed on 02/09/12919 by ITS IMPORTSign by Bo BRADLEY,Yury zacarias on 02/09/12 0921 Sign by: Samuel Leal MD 22-Krk-471576:13 METABOLIC PANEL, COMPREHENSIVE Comments: A duplicate report has been generated due to demographic updateof the patient's Date of , Age, Gender, and/or Specimen Date.Please review patient results, reference intervals, and calculatedresults ([id number]) that may have been affected by this change.PERFORMED BY: [facility] Mxrjuk3742 [facility] [id number] ALT (SGPT) 17 [iU]/L (Normal) Range: 0-40 AST (SGOT) 19 [iU]/L (Normal) Range: 0-40 Alkaline Phosphatase, S 64 [iU]/L (Normal) Range: 25-165 Bilirubin, Total 0.3 mg/dL (Normal) Range: 0.0-1.2 A/G Ratio 1.7 (Normal) Range: 1.1-2.5 Globulin, Total 2.3 g/dL (Normal) Range: 1.5-4.5 Albumin, Serum 3.8 g/dL (Normal) Range: 3.6-4.8 Protein, Total, Serum 6.1 g/dL (Normal) Range: 6.0-8.5 Calcium, Serum 9.0 mg/dL (Normal) Range: 8.6-10.2 Carbon Dioxide, Total 26 mmol/L (Normal) Range: 20-32 Chloride, Serum 103 mmol/L (Normal) Range: 97-108 Potassium, Serum 4.1 mmol/L (Normal) Range: 3.5-5.2 Sodium, Serum 141 mmol/L (Normal) Range: 134-144 BUN/Creatinine Ratio 23 (Normal) Range: 11-26 eGFR If Africn Am 92 mL/min/1.73 (Normal) eGFR If NonAfricn Am 80 mL/min/1.73 (Normal) Creatinine, Serum 0.77 mg/dL (Normal) Range: 0.57-1.00 BUN 18 mg/dL (Normal) Range: 8-27 Glucose, Serum 84 mg/dL (Normal) Range: 65-99 06-Gnj-666777:13 CBC WITH MANUAL DIFF (46128) Comments: A duplicate report has been generated due to demographic updateof the patient's Date of , Age, Gender, and/or Specimen Date.Please review patient results, reference intervals, and calculatedresults that may have been affected by this change.PERFORMED BY: [facility] Hrdwam1960 [facility] [id number] Immature Grans (Abs) 0.0 {x10E3/uL} (Normal) Range: 0.0-0.1 Immature Granulocytes 0 % (Normal) Range: 0-2 Baso (Absolute) 0.0 {x10E3/uL} (Normal) Range: 0.0-0.2 Eos (Absolute) 0.1 {x10E3/uL} (Normal) Range: 0.0-0.4 Monocytes(Absolute) 0.3 {x10E3/uL} (Normal) Range: 0.1-1.0 Lymphs (Absolute) 2.6 {x10E3/uL} (Normal) Range: 0.7-4.5 Neutrophils (Absolute) 4.0 {x10E3/uL} (Normal) Range: 1.8-7.8 Basos 0 % (Normal) Range: 0-3 Eos 2 % (Normal) Range: 0-7 Monocytes 4 % (Normal) Range: 4-13 Lymphs 37 % (Normal) Range: 14-46 Neutrophils 57 % (Normal) Range: 40-74 Platelets 252 {x10E3/uL} (Normal) Range: 140-415 RDW 13.9 % (Normal) Range: 12.3-15.4 MCHC 33.2 g/dL (Normal) Range: 31.5-35.7 MCH 29.5 pg (Normal) Range: 26.6-33.0 MCV 89 fL (Normal) Range: 79-97 Hematocrit 39.8 % (Normal) Range: 34.0-46.6 Hemoglobin 13.2 g/dL (Normal) Range: 11.1-15.9 RBC 4.47 {x10E6/uL} (Normal) Range: 3.77-5.28 WBC 7.1 {x10E3/uL} (Normal) Range: 4.0-10.5 77-Obe-872196:18 Homocysteine, Plasma (04696) Comments: PATIENT NOT FASTINGPERFORMED BY: [facility]6370 [facility] [id number] Homocyst(e)ine, Plasma 11.4 umol/L (Normal) Range: 0.0-15.0 50-Few-981220:18 Vitamin D Hydroxy Comments: PATIENT NOT FASTINGPERFORMED BY: [facility] Ivtrkz5225 [facility] [id number] Information: [id number] ([id number]) Vitamin D, 25-Hydroxy 17.7 ng/mL (Abnormal) Range: 30.0-100.0 Comments: Vitamin D deficiency has been defined by the [place] of[facility] and an Endocrine Society practice guideline as alevel of serum 25-OH vitamin D less than 20 ng/mL (1,2).The Endocrine Society went on to further define vitamin Dinsufficiency as a level between 21 and 29 ng/mL (2).1. IOM ([place] [employer] of Medicine). 2011. Dietary reference intakes for calcium and D. Fu [place]: The National Academies Press.2. Castillo MF, Yocasta NC, Jerri MACIEL, et al. Evaluation, treatment, and prevention of vitamin D deficiency: an Endocrine Society clinical practice guideline. JCEM. 2010; 96(7):1911-30. 78-Fum-630054:15 BILAT SCRN DIGITAL & CAD Radiology Report See Note (Normal) Comments: MAMMOGRAPHY - BILATERAL SCREENING REASON FOR EXAM: Female, 66 years old. Routine annual screeningexamination. PERTINENT HISTORY: Non-contributory. TECHNIQUE: Digital examination. Med iolateral ob lique (MLO) andcraniocaudad (CC) views of both breasts were obtained. CAD: CAD wasperformed on this study. COMPARISON: Comparison is made with prior study dated May 31, 2010. FINDINGS:The breast c omposition is composed of scattered fibroglandular densities. There are no masses or suspicious microcalcifications. No other significant abnormalities are identified. There has been nosignificant blankenship ge since the prior study. IMPRESSION:Normal bilateral screening mammogram. One year follow-up recommended. (A) ASSESSMENT CATEGORY:BIRADS Category 2: Benign finding(s). A letter regarding these resul tswill be sent to the patient by the facility within 30 days. Approximately 10% of breast cancers are not detected by mammography. Anormal mammogram should not delay biopsy of a clinically suspiciousab normality. To consult with a radiologist regarding this report, please call our [id number] line @ Dictated on 08/30/11 1357 by Bo BRADLEY,TomasrieleTranscribed on 08/30/11 1421 by ITS IMPORTSign by Samuel Leal MD on 08/30/111421 Sign by: Samuel Leal MD 43-Dey-114318:14 DEXA BONE DENSITY STUDY (HP) Radiology Report See Note (Normal) Comments: PROCEDURE: DUAL ENERGY X-RAY ABSORPTIOMETRY / DEXA. REASON FOR EXAM: Female, 66 years old. The patient has a history ofosteopenia. TECHNIQUE: Bone Mineral Density (BMD) measurements of lumbar spin e andbilateral hips were obtained. COMPARISON: Comparison is made with prior study dated August 19, 2008. FINDINGS: Lumbar Spine (L1-L4): g/cm2 (1.160) / T-score (-0.2) / Z-score (1.5)Left Femur Total: g/cm2 (0.772) / T-score (-1.9) / Z-score (-0.3)Right Femur Total: g/cm2 (0.820) / T-score (-1.6) / Z-score (0.0) Since prior study, there has been a bone loss of 5% in the left hip. IM PRESSION:The patient is considered osteopenic, as outlined above, according toWorldHealth Organization (WHO) criteria. Fracture risk is moderate. Reference Information:The T-score is the number of robbi dard deviations above or below thestandard which is normal for young adults at their peak bone mineraldensity. The World Health Organization (WHO) interprets the T-scores asfollows: Above -1 N ormal bone densityBetween -1 and -2.5 OsteopeniaEqual to / or below -2.5 Osteoporosis As a practical clinical guideline, osteopenia may be graded as follows:Mild -1 through -1.5Moderate -1.6 throug h -2.0Severe -2.1 through -2.4 The Z-score is the number of standard deviations above or below age-matchedcontrols. A Z-score of less than -1.5 would be considered abnormal. References:1. NIH Osteopo rosis and Related Bone Diseases http://www.osteo.org2. International Society for Clinical Densitometry http://www.iscd.org3. National Osteoporosis Foundation http://www.nof.org To consult with a radio logist regarding this report, please call our [id number] line @ Dictated on 08/30/11 1322 by oB BRADLEY,Akshatribed on 08/30/11 1559 by ITS IMPORTSign by Bo BRADLEY,Anton aparicio on 08/30/11 1600 Sign by: Samuel Leal MD 83-Ezp-52872:42 Anticardiolipin Ab, IgA, Qn Comments: PATIENT WAS FASTINGPERFORMED BY: [facility] [id number] BY: AdScaleHealthSouth - Specialty Hospital of UnionFrevbj5657 [facility] [id number] BY: [employer] HHU4075 [facility] [id number] Anticardiolipin Ab,IgA,Qn <9 {APL_U/mL} Range: 0-11 (Normal) Comments: Negative: <12 Indeterminate: 12 - 20 Low-Med Positive: >20 - 80 High Positive: >80 17-Aug-2011 Antithrombin Activity 110 % (Normal) Comments: PATIENT WAS FASTINGPERFORMED BY: [employer] [id number] BY: [employer] Kzigvx7716 [facility] [id number] BY: TG [facility] 9:42 EVY6979 [facility] [facility] [id number] Range: 75-135 11-Xmp-41887:42 CBC With Differential/Platelet Comments: PATIENT WAS FASTINGPERFORMED BY: BN [facility] Wcdiiwrvjv2285 [facility] [id number] BY: CB [facility] Ljpabl1049 [address] [place] [id number] BY: TG [facility] YLD4976 [facility] [id number] Immature Grans (Abs) 0.0 {x10E3/uL} (Normal) Range: 0.0-0.1 Immature Granulocytes 0 % (Normal) Range: 0-2 Baso (Absolute) 0.0 {x10E3/uL} (Normal) Range: 0.0-0.2 Eos (Absolute) 0.2 {x10E3/uL} (Normal) Range: 0.0-0.4 Monocytes(Absolute) 0.5 {x10E3/uL} (Normal) Range: 0.1-1.0 Lymphs (Absolute) 1.7 {x10E3/uL} (Normal) Range: 0.7-4.5 Neutrophils (Absolute) 4.3 {x10E3/uL} (Normal) Range: 1.8-7.8 Basos 0 % (Normal) Range: 0-3 Eos 3 % (Normal) Range: 0-7 Monocytes 8 % (Normal) Range: 4-13 Lymphs 25 % (Normal) Range: 14-46 Neutrophils 64 % (Normal) Range: 40-74 Platelets 256 {x10E3/uL} (Normal) Range: 140-415 RDW 13.9 % (Normal) Range: 11.7-15.0 MCHC 33.2 g/dL (Normal) Range: 32.0-36.0 MCH 29.6 pg (Normal) Range: 27.0-34.0 MCV 89 fL (Normal) Range: 80-98 Hematocrit 42.5 % (Normal) Range: 34.0-44.0 Hemoglobin 14.1 g/dL (Normal) Range: 11.5-15.0 RBC 4.76 {x10E6/uL} (Normal) Range: 3.80-5.10 WBC 6.8 {x10E3/uL} (Normal) Range: 4.0-10.5 64-Wsd-45021:42 Comp. Metabolic Panel Comments: PATIENT WAS FASTINGPERFORMED BY: BN [facility] Xjgbatbdqq2174 [place] [id number] BY: CB [facility] Kwmrwh0811 [address] [place] [id number] BY: TG [facility] (14) URQ4774 Ryder DriveRSELECT SPECIAL[facility] H[facility] [id number] ALT (SGPT) 20 [iU]/L (Normal) Range: 0-40 AST (SGOT) 19 [iU]/L (Normal) Range: 0-40 Alkaline Phosphatase, 69 [iU]/L (Normal) Range: 25-165 S Bilirubin, Total 0.3 mg/dL (Normal) Range: 0.0-1.2 A/G Ratio 1.6 (Normal) Range: 1.1-2.5 Globulin, Total 2.5 g/dL (Normal) Range: 1.5-4.5 Albumin, Serum 4.1 g/dL (Normal) Range: 3.6-4.8 Protein, Total, Serum 6.6 g/dL (Normal) Range: 6.0-8.5 Calcium, Serum 9.2 mg/dL (Normal) Range: 8.6-10.2 Carbon Dioxide, Total 26 mmol/L (Normal) Range: 20-32 Chloride, Serum 104 mmol/L (Normal) Range: 97-108 Potassium, Serum 4.3 mmol/L (Normal) Range: 3.5-5.2 Sodium, Serum 140 mmol/L (Normal) Range: 134-144 BUN/Creatinine Ratio 12 (Normal) Range: 11-26 eGFR If Africn Am 85 mL/min/1.73 Comments: Note: A persistent eGFR <60 mL/min/1.73 m2 (3 months or more) mayindicate chronic kidney disease. An eGFR >59 mL/min/1.73 m2 with anelevated urine protein also may indicate chronic kidney di sease.Calculated using CKD-EPI formula. (Normal) eGFR If NonAfricn Am 74 mL/min/1.73 (Normal) Creatinine, Serum 0.82 mg/dL (Normal) Range: 0.57-1.00 BUN 10 mg/dL (Normal) Range: 8-27 Glucose, Serum 93 mg/dL (Normal) Range: 65-99 : Factor II Activity 99 % (Normal) Comments: PATIENT WAS FASTINGPERFORMED BY: [facility]Co[address] [id number] BY: LabCoHealthSouth - Specialty Hospital of UnionPvqjay4085 [facility] [id number] BY: [facility] 42 UWP2003 [facility] [id number] Range: 75-130 :42 Factor V Leiden Mutation Comments: PATIENT WAS FASTINGPERFORMED BY: LabCo[address] [id number] BY: LabCoHealthSouth - Specialty Hospital of UnionZhfqjj0023 [facility] [id number] BY: [facility] NBV8537 [facility] [id number] Factor V Leiden FVNEG3 (Normal) Comments: Result: Negative (no mutation found) .Factor V Leiden is a specific mutation (R506Q) in the factorV gene that is associated with an increased r isk of venousthrombosis. Factor V Leiden is more resistant toinactivation by activated protein C. As a result, factor Vpersists in the circulation leading to a mild hyper-coagulable state. The Leiden mutation accounts for 90% -95% of APC resistance. Factor V Leiden has been reported inpatients with deep vein thrombosis, pulmonary embolus,central retinal vein occlusion, cerebral sinus thrombosisand hepatic vein thrombosis. Other risk factors to beconsidered in the workup for venous thrombosis include [id number] mutation in the factor II (prothrombin) gene,protein S and C deficiency, and antithromb in deficiencies.Anticardiolipin antibody and lupus anticoagulant analysismay be appropriate for certain patients, as well ashomocysteine levels. .Contact your local [facility] for information on how to orderadditional testing if desired. .Genetic counselors are available for health care* providers to discuss results at [phone] [phone]). .Methodology:DNA analysis of the Factor V gene was performed by allele-specific PCR followed by gel electrophoresis. The diagnosticsensitivity and specificity is >99% for both. Molecular-based testing is highly accurate, but as in any laboratorytest, diagnostic errors may occur. All test results must becombined with clinical information for the most accurateinterpretation. .References:Chastity Cadena (1996). Clin Lab Med 16: 169-186. .Amol Daniels, Ph.D.Yady Patel, Ph.D.Emelyn Cortes, Ph.D.Sujey Muhammad, Ph.D.Monique Carter, Ph.D.Julia Escobar M.D .June Enriquez, Ph.D. . :42 Lupus Anticoagulant Comp Comments: PATIENT WAS FASTINGPERFORMED BY: [employer] [address] [id number] BY: DeCell Technologieslin6370 [facility] [id number] BY: [employer] [id number] Interpretation Comment: (Normal) Comments: No lupus anticoagulant was detected. The dPT was extendedbut the dPT confirmatory ratio was normal. This is consistentwith a deficiency or specific inhibition of one or more extrinsicpathway factors (VII, X, V, II or fibrinogen). 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 One copy of the C677T mutation and one copy of the B9870Mpimxcqta were identified. Population data suggest t hese two mutationsare not present on the same chromosome, although rare exceptions havebeen reported. The diagnosis of hyperhomocysteinemia can not rely onDNA testing alone but should take into consid eration clinical findingsand other studies, such as serum homocysteine levels. Because MTHFRmutations and their associated risks are inherited, genetic counselingand testing of at-risk family members s hould be considered. .Genetic counselors are available to discuss these results with health care providers at [phone] .The MTHFR enzyme is responsible for creating the circulatingform of folate. Folate is important in homocysteine regula-tion. Defects in the MT HFR enzyme can indirectly causeelevated homocysteine levels. The C677T mutation in theMTHFR gene can cause elevated homocysteine levels in tommy-viduals with insufficient folate, particularly when there are two mutations present. The L4919W mutation has not beenassociated with elevated homocysteine levels unless a K450Ttsoeliyv is also present. Elevated serum homocysteine levelshave been associated wi th an increased risk of cerebrovasc-ular disease, coronary artery disease, myocardial infarction,and venous thrombosis. In women, complicationsand an increased risk of open neural tube defectshave also been reported. The relationship between theseconditions and MTHFR mutations is controversial. .Dietary folic acid, B6 and B12 supplementation has beensuggested to lower homocysteine levels in some people. Folicacid supplementation has been shown to reduce the recurrenceof neural tube defects.Methodology:DNA analysis of the MTH FR gene was performed by PCRamplification followed by restriction analysis. Thediagnostic sensitivity is >99% for both. Molecular-basedtesting is highly accurate, but as in any laboratory test,rare diagnostic errors may occur. All test results must becombined with clinical information for the most accurateinterpretation. .Prateek HORTON. (199 8). Nutrition Review 56:236-244.Kwaku Garcia (1997). Thromb Haemost 78:523- 526.Deanne rodas Zak. (2000). Am J Epidemiol 151:862-877. .Amol lira, Ph.D.Yady Patel, Ph.D.Emelyn Cortes, Ph.D.Sujey Muhammad, Ph.D.Monique Carter, Ph.D.Julia Escobar M.D.Val. Faye Enriquez, Ph.D. . :42 Protein C Deficiency Comments: PATIENT WAS FASTINGPERFORMED BY: [facility] [id number] BY: LabCoKyle Ville 7388170 [facility] [id number] BY: [facility] DGF3106 [address] [facility] [id number] Protein C-Functional 147 % (Normal) Range: 74-151 Protein C Antigen 117 % (Normal) Range: 70-140 :42 Protein S Panel Comments: PATIENT WAS FASTINGPERFORMED BY: LabRevetto[address] [id number] BY: LabRevettoHealthSouth - Specialty Hospital of UnionXjrpfd6579 [facility] [id number] BY: [facility] QOQ4735 [facility] [id number] Protein S-Functional 78 % (Normal) Range: 60-145 Protein S, Free 74 % (Normal) Range: 56-124 Protein S, Total 101 % (Normal) Range: 58-150 TSH 1.550 {uIU/mL} Comments: PATIENT WAS FASTINGPERFORMED BY: LabCo[address] [id number] BY: LabCoHealthSouth - [facility] Hospital of UnionIthuze3506 [facility] [id number] BY: [facility] :42 (Normal) VGX0523 [address] [facility] [id number] Range: 0.450-4.500 Vitamin D, 25-Hydroxy 20.1 ng/mL Comments: PATIENT WAS FASTINGPERFORMED BY: Lab29 Kim Streetlington [place] [id number] BY: CB [facility] Bhfuzo3251 [address] [place] [id number] BY: TG [facility] :42 (Abnormal) GSR4591 [facility] [facility] [id number] Range: 30.0-100.0 Comments: Vitamin D deficiency has been defined by the [place] ofMedicine and an Endocrine Society practice guideline as alevel of serum 25-OH vitamin D less than 20 ng/mL (1,2).The Endocrine Society went on to further define vitamin Dinsufficiency as a level between 21 and 29 ng/mL (2).1. IOM ([employer] of Medicine). 2011. Dietary reference intakes for calcium and D. Fu [place]: The National Academies Press.2. Castillo MF, Yocasta SHABAZZ, Jerri MACIEL, et al. Evaluation, treatment, and prevention of vitamin D deficiency: an Endocrine Society clinical practice guideline. JCEM. 2010; 96(7):1911-30. 84-Oet-532249:01 CHEST WITHOUT CONTRAST Radiology Report See Note (Normal) Comments: PROCEDURE: CT CHEST WITHOUT CONTRAST REASON FOR EXAM: Female, 66 years old. Lung nodule follow-up TECHNIQUE: High resolution transaxial imaging was performed without theadministration of intraven ous contrast material. COMPARISON: May 31, 2010 FINDINGS: There are emphysematous changes of the lungs with emphysematous blebs.Right upper and lower lobe pulmonary nodules described on the priorr eportare stable when directly compared. These are both evident on image 66.There is no demonstrated pleural abnormality. Normal heart and pericardium. There are multiple small lymph nodes within the me diastinum, which arenormal in size and morphology most compatible with reactive lymphhyperplasia. Normal hilar regions. Normal unenhanced pulmonaryarteries.There is atherosclerotic calcification of th e aortic arch with tortuosityand elongation of the aortic arch and descending thoracic aorta. Normal osseous structures. Splenic calcifications are present. IMPRESSION:1. Stable right upper and lower l salvatore pulmonary nodules that are stablesince November of 2009 by report. Favor post inflammatory nodules. Recommendfollow-up CT in 6 months to document stability for a total of two yearsofsurveillance. 2. C entrilobular emphysema. Dictated on 06/29/11 1107 by JUANITA CARRERO MD, BTranscribed on 06/29/111510 by ITS IMPORTSign by JUANITA CARRERO MD on 06/29/111511 Sign by: JUANITA CARRERO MD 15-Ncn-230503:02 PT (PROTHROMBIN TIME) Comments: PATIENT NOT FASTINGPERFORMED BY: [place] 7100770 [facility] [id number] Information: [id number] ([id number]) Prothrombin Time 31.0 {sec} (Abnormal) Range: 8.7-11.5 Comments: Effective June 20, 2011, the reference interval will be changing to: 9.1 - 12.0 INR 2.9 (Abnormal) Range: 0.8-1.2 Comments: Reference interval is for non-anticoagulated patients. . Suggested INR therapeutic range for Vitamin K anta gonist therapy: Standard Dose (moderate intensity therapeutic range): 2.0 - 3.0 Higher intensity therapeutic range 2.5 - 3.5 32-Jdz-392394:29 PT (PROTHROMBIN TIME) Comments: PATIENT NOT FASTINGPERFORMED BY: [facility]6370 [facility] [id number] Information: [id number] ([id number]) Prothrombin Time 23.9 {sec} (Abnormal) Range: 8.7-11.5 Comments: Effective June 20, 2011, the reference interval will be changing to: 9.1 - 12.0 INR 2.3 (Abnormal) Range: 0.8-1.2 Comments: Reference interval is for non-anticoagulated patients. . Suggested INR therapeutic range for Vitamin K anta gonist therapy: Standard Dose (moderate intensity therapeutic range): 2.0 - 3.0 Higher intensity therapeutic range 2.5 - 3.5 64-Xis-584444:21 PT (PROTHROMBIN TIME) Comments: PATIENT NOT FASTINGPERFORMED BY: [place] 7100770 [facility] [id number] Information: [id number] ([id number]) Prothrombin Time 19.7 {sec} (Abnormal) Range: 8.7-11.5 Comments: Effective June 20, 2011, the reference interval will be changing to: 9.1 - 12.0 INR 1.9 (Abnormal) Range: 0.8-1.2 Comments: Reference interval is for non-anticoagulated patients. . Suggested INR therapeutic range for Vitamin K anta gonist therapy: Standard Dose (moderate intensity therapeutic range): 2.0 - 3.0 Higher intensity therapeutic range 2.5 - 3.5 88-Guv-690556:40 PT (PROTHROMBIN TIME) Comments: PATIENT NOT FASTINGPERFORMED BY: [place] 7100770 [facility] [id number] Information: [id number] ([id number]) Prothrombin Time 38.3 {sec} (Abnormal) Range: 8.7-11.5 INR 3.6 (Abnormal) Range: 0.8-1.2 Comments: Client Requested Flag Reference interval is for non- anticoagulated patients. . Suggested INR therapeutic ra nge for Vitamin K antagonist therapy: Standard Dose (moderate intensity therapeutic range): 2.0 - 3.0 Higher intensity therapeutic range 2.5 - 3.5 :08 PT (PROTHROMBIN TIME) (12009) Comments: PATIENT NOT FASTINGPERFORMED BY: [facility]6370 [facility] [id number] Prothrombin Time 32.2 {sec} (Abnormal) Range: 8.7-11.5 INR 3.1 (Abnormal) Range: 0.8-1.2 Comments: Reference interval is for non-anticoagulated patients. . Suggested INR therapeutic range for Vitamin K anta gonist therapy: Standard Dose (moderate intensity therapeutic range): 2.0 - 3.0 Higher intensity therapeutic range 2.5 - 3.5 88-Ywq-577562:14 PT (PROTHROMBIN TIME) Comments: PATIENT NOT FASTINGPERFORMED BY: [facility]6370 [facility] [id number] Information: [id number] ([id number]) Prothrombin Time 25.0 {sec} (Abnormal) Range: 8.7-11.5 INR 2.4 (Abnormal) Range: 0.8-1.2 Comments: Reference interval is for non-anticoagulated patients. . Suggested INR therapeutic range for Vitamin K anta gonist therapy: Standard Dose (moderate intensity therapeutic range): 2.0 - 3.0 Higher intensity therapeutic range 2.5 - 3.5 :25 PT (PROTHROMBIN TIME) Comments: PATIENT NOT FASTINGPERFORMED BY: [place] 7100770 [facility] [id number] Information: [id number] ([id number]) Prothrombin Time 35.1 {sec} (Abnormal) Range: 8.7-11.5 INR 3.3 (Abnormal) Range: 0.8-1.2 Comments: Reference interval is for non-anticoagulated patients. . Suggested INR therapeutic range for Vitamin K anta gonist therapy: Standard Dose (moderate intensity therapeutic range): 2.0 - 3.0 Higher intensity therapeutic range 2.5 - 3.5 :48 PT (PROTHROMBIN TIME) Comments: PATIENT NOT FASTINGPERFORMED BY: [place] 7100770 [facility] [id number] Information: [id number] ([id number]) Prothrombin Time 28.1 {sec} (Abnormal) Range: 8.7-11.5 INR 2.6 (Abnormal) Range: 0.8-1.2 Comments: Reference interval is for non-anticoagulated patients. . Suggested INR therapeutic range for Vitamin K anta gonist therapy: Standard Dose (moderate intensity therapeutic range): 2.0 - 3.0 Higher intensity therapeutic range 2.5 - 3.5 :09 PT (PROTHROMBIN TIME) Comments: PATIENT NOT FASTINGPERFORMED BY: [facility]6370 [facility] [id number] Information: [id number] ([id number]) Prothrombin Time 25.4 {sec} (Abnormal) Range: 8.7-11.5 INR 2.4 (Abnormal) Range: 0.8-1.2 Comments: Reference interval is for non-anticoagulated patients. . Suggested INR therapeutic range for Vitamin K anta gonist therapy: Standard Dose (moderate intensity therapeutic range): 2.0 - 3.0 Higher intensity therapeutic range 2.5 - 3.5 :45 PT (PROTHROMBIN TIME) Comments: PATIENT NOT FASTINGPERFORMED BY: [place] 7100770 [facility] [id number] Information: [id number] ([id number]) Prothrombin Time 26.1 {sec} (Abnormal) Range: 8.7-11.5 INR 2.4 (Abnormal) Range: 0.8-1.2 Comments: Reference interval is for non-anticoagulated patients. . Suggested INR therapeutic range for Vitamin K anta gonist therapy: Standard Dose (moderate intensity therapeutic range): 2.0 - 3.0 Higher intensity therapeutic range 2.5 - 3.5 :06 Prothrombin Time (PT) Comments: PERFORMED BY: [place] 7100770 [facility] [id number] Prothrombin Time 25.8 {sec} (Abnormal) Range: 8.7-11.5 INR 2.4 (Abnormal) Range: 0.8-1.2 Comments: Reference interval is for non-anticoagulated patients. . Suggested INR therapeutic range for Vitamin K anta gonist therapy: Standard Dose (moderate intensity therapeutic range): 2.0 - 3.0 Higher intensity therapeutic range 2.5 - 3.5 :56 PT (PROTHROMBIN TIME) Comments: PATIENT NOT FASTINGPERFORMED BY: [facility]6370 [facility] [id number] Information: [id number] ([id number]) Prothrombin Time 18.9 {sec} (Abnormal) Range: 8.7-11.5 INR 1.8 (Abnormal) Range: 0.8-1.2 Comments: Reference interval is for non-anticoagulated patients. . Suggested INR therapeutic range for Vitamin K anta gonist therapy: Standard Dose (moderate intensity therapeutic range): 2.0 - 3.0 Higher intensity therapeutic range 2.5 - 3.5 :14 Prothrombin Time (PT) Comments: PERFORMED BY: [place] [id number] [facility] [id number] Prothrombin Time 29.7 {sec} (Abnormal) Range: 8.7-11.5 INR 2.8 (Abnormal) Range: 0.8-1.2 Comments: Reference interval is for non-anticoagulated patients. . Suggested INR therapeutic range for Vitamin K anta gonist therapy: Standard Dose (moderate intensity therapeutic range): 2.0 - 3.0 Higher intensity therapeutic range 2.5 - 3.5 :05 Prothrombin Time (PT) Comments: PERFORMED BY: [employer] Cmbdet6332 [facility] [id number] Prothrombin Time 38.0 {sec} (Abnormal) Range: 8.7-11.5 INR 3.5 (Abnormal) Range: 0.8-1.2 Comments: Reference interval is for non-anticoagulated patients. . Suggested INR therapeutic range for Vitamin K anta gonist therapy: Standard Dose (moderate intensity therapeutic range): 2.0 - 3.0 Higher intensity therapeutic range 2.5 - 3.5 :45 Prothrombin Time (PT) Comments: PERFORMED BY: [employer] Gzwxec9085 [facility] [id number] Prothrombin Time 32.4 {sec} (Abnormal) Range: 8.7-11.5 INR 3.0 (Abnormal) Range: 0.8-1.2 Comments: Reference interval is for non-anticoagulated patients. . Suggested INR therapeutic range for Vitamin K anta gonist therapy: Standard Dose (moderate intensity therapeutic range): 2.0 - 3.0 Higher intensity therapeutic range 2.5 - 3.5 :46 Prothrombin Time (PT) Comments: PERFORMED BY: [employer] Uddprx4417 [facility] [id number] Prothrombin Time 34.4 {sec} (Abnormal) Range: 8.7-11.5 INR 3.2 (Abnormal) Range: 0.8-1.2 Comments: Reference interval is for non-anticoagulated patients. . Suggested INR therapeutic range for Vitamin K anta gonist therapy: Standard Dose (moderate intensity therapeutic range): 2.0 - 3.0 Higher intensity therapeutic range 2.5 - 3.5 :39 Prothrombin Time (PT) Comments: PERFORMED BY: [employer] Efpdun8166 [facility] [id number] Prothrombin Time 31.7 {sec} (Abnormal) Range: 8.7-11.5 INR 3.0 (Abnormal) Range: 0.8-1.2 Comments: Reference interval is for non-anticoagulated patients. . Suggested INR therapeutic range for Vitamin K anta gonist therapy: Standard Dose (moderate intensity therapeutic range): 2.0 - 3.0 Higher intensity therapeutic range 2.5 - 3.5 43-Dcm-944136:03 Prothrombin Time (PT) Comments: PERFORMED BY: [facility]ScaleHoly [facility] HospitalIiishq0838 [facility] [id number] Prothrombin Time 31.1 {sec} (Abnormal) Range: 8.7-11.5 INR 2.9 (Abnormal) Range: 0.8-1.2 Comments: Reference interval is for non-anticoagulated patients. . Suggested INR therapeutic range for Vitamin K anta gonist therapy: Standard Dose (moderate intensity therapeutic range): 2.0 - 3.0 Higher intensity therapeutic range 2.5 - 3.5 56-Yhx-854237:00 Prothrombin Time (PT) Comments: PERFORMED BY: [facility] UnionPcyfsr5622 [facility] [id number] Prothrombin Time 31.3 {sec} (Abnormal) Range: 8.7-11.5 INR 2.9 (Abnormal) Range: 0.8-1.2 Comments: Reference interval is for non-anticoagulated patients. . Suggested INR therapeutic range for Vitamin K anta gonist therapy: Standard Dose (moderate intensity therapeutic range): 2.0 - 3.0 Higher intensity therapeutic range 2.5 - 3.5 36-Evu-820115:47 Prothrombin Time (PT) Comments: PERFORMED BY: [facility] [id number] Prothrombin Time 20.6 {sec} (Abnormal) Range: 8.7-11.5 INR 1.9 (Abnormal) Range: 0.8-1.2 Comments: Reference interval is for non-anticoagulated patients. . Suggested INR therapeutic range for Vitamin K anta gonist therapy: Standard Dose (moderate intensity therapeutic range): 2.0 - 3.0 Higher intensity therapeutic range 2.5 - 3.5 69-Fod-53278:36 Prothrombin Time (PT) Comments: PERFORMED BY: [employer] Oiulka9632 [facility] [id number] Prothrombin Time 27.7 {sec} (Abnormal) Range: 8.7-11.5 INR 2.6 (Abnormal) Range: 0.8-1.2 Comments: Reference interval is for non-anticoagulated patients. . Suggested INR therapeutic range for Vitamin K anta gonist therapy: Standard Dose (moderate intensity therapeutic range): 2.0 - 3.0 Higher intensity therapeutic range 2.5 - 3.5 :32 Prothrombin Time (PT) Comments: PERFORMED BY: [employer] Dbrmsv7139 [facility] [id number] Prothrombin Time 44.8 {sec} (Abnormal) Range: 8.7-11.5 INR 4.2 (Abnormal) Range: 0.8-1.2 Comments: Client Requested Flag Reference interval is for non- anticoagulated patients. . Suggested INR therapeutic ra nge for Vitamin K antagonist therapy: Standard Dose (moderate intensity therapeutic range): 2.0 - 3.0 Higher intensity therapeutic range 2.5 - 3.5 :39 CHEST WITH CONTRAST Radiology Report See Note (Normal) Comments: Exam Number: [id number] LINICAL:This is a 64-year-old female patient with history of lung nodules. CT CHEST WITH CONTRAST TECHNIQUE:High resolution transaxial imaging was performed following intravenous administration of 100ml of Isovue 370 contrast material. Multiplanar coronal and sagittal images were reformatted. COMPARISON:Comparison is made with prior examination dated December 16, 2009. FINDINGS: The trachea and visualized bronchi are normal. There is a stable 1 cm noncalcified nodule in the subpleural aspect of the right lower lobe. There is also evidence of a stable 4-mm noncalcified nodule in t he right upper lobe. There is evidence of emphysematous changes in both lungs and There is no demonstrated pleural abnormality. Normal heart and pericardium. Normal mediastinum. Normal hilar regions. M inimal residual of embolus is seen within the right lower lobe pulmonary artery. No other abnormalities seen. Normal thoracic aorta and visualized great vessels. Normal osseous structures. IMPRESSION: Stable nodules bilaterally. Reported By: SAMUEL LEAL :37 BILAT SCRN DIGITAL & CAD Radiology Report See Note (Normal) Comments: Exam Number: [id number] AMMOGRAPHY - BILATERAL SCREENING INDICATION:Routine annual screening examination. PERTINENT HISTORY:Non-contributory. TECHNIQUE:Digital examination. Mediolateral oblique (MLO) an d craniocaudad (CC) views of both breasts were obtained. CAD was performed on this study. COMPARISON:August 17, 2006 and August 19, 2008 FINDINGS:The breast composition is composed of scattered fibro glandular densities. There are no masses or suspicious microcalcifications. No other significant abnormalities are identified. IMPRESSION:Normal bilateral screening mammogram. Yearly follow-up recommen ded. ASSESSMENT CATEGORY:Category 2: Benign finding(s) Approximately 10% of breast cancers are not detected by mammography. A normal mammogram should not delay biopsy of a clinically suspicious abnorm ality.This addendum is being created for the purpose of attaching a ResultCode to this exam. ADDENDUM: [id number] HPBI/MDS Reported By: VIKTORIYA MAJANO M.D. 94-Fxz-684265:55 Prothrombin Time (PT) Comments: PERFORMED BY: Plerts6370 [facility] [id number] Prothrombin Time 29.1 {sec} (Abnormal) Range: 8.7-11.5 INR 2.7 (Abnormal) Range: 0.8-1.2 Comments: Reference interval is for non-anticoagulated patients. . Suggested INR therapeutic range for Vitamin K anta gonist therapy: Standard Dose (moderate intensity therapeutic range): 2.0 - 3.0 Higher intensity therapeutic range 2.5 - 3.5 30-Xio-919224:29 Prothrombin Time (PT) Comments: PERFORMED BY: [employer] Lpbava4685 [facility] [id number] Prothrombin Time 30.2 {sec} (Abnormal) Range: 8.7-11.5 INR 2.8 (Abnormal) Range: 0.8-1.2 Comments: Reference interval is for non-anticoagulated patients..Suggested INR therapeutic range for Vitamin Kantagonist therapy:Standard Dose (moderate intensitytherapeutic range): 2.0 - 3.0Higher intensity therapeutic range 2.5 - 3.5 64-Qwo-352305:36 Prothrombin Time (PT) Comments: PERFORMED BY: [facility]6370 [facility] [id number] Prothrombin Time 23.4 {sec} (Abnormal) Range: 8.7-11.5 INR 2.2 (Abnormal) Range: 0.8-1.2 Comments: Reference interval is for non-anticoagulated patients..Suggested INR therapeutic range for Vitamin Kantagonist therapy:Standard Dose (moderate intensitytherapeutic range): 2.0 - 3.0Higher intensity therapeutic range 2.5 - 3.5 :04 PT (Prothrobim Time) Comments: PATIENT NOT FASTINGPERFORMED BY: [address] [id number] Information: [id number] ([id number]) Prothrombin Time 31.7 {sec} (Abnormal) Range: 8.7-11.5 INR 3.0 (Abnormal) Range: 0.8-1.2 Comments: Reference interval is for non-anticoagulated patients..Suggested INR therapeutic range for Vitamin Kantagonist therapy:Standard Dose (moderate intensitytherapeutic range): 2.0 - 3.0Higher intensity therapeutic range 2.5 - 3.5 :34 LIPID PANEL (13280) Comments: PATIENT WAS FASTINGPERFORMED BY: [facility]6370 [facility] [id number] HDL Cholesterol 61 mg/dL (Normal) Comments: According to ATP-III Guidelines, HDL-C >59 mg/dL is considered anegative risk factor for CHD. LDL Cholesterol Calc 103 mg/dL (Abnormal) Range: 0-99 LDL/HDL Ratio 1.7 {ratio_units} (Normal) Range: 0.0-3.2 VLDL Cholesterol Eugene 18 mg/dL (Normal) Range: 5-40 Triglycerides 92 mg/dL (Normal) Range: 0-149 Cholesterol, Total 182 mg/dL (Normal) Range: 100-199 :34 METABOLIC PANEL, COMPREHENSIVE Comments: PATIENT WAS FASTINGPERFORMED BY: [place] [id number] [facility] [id number] ([id number]) ALT (SGPT) 19 [iU]/L (Normal) Range: 0-40 AST (SGOT) 24 [iU]/L (Normal) Range: 0-40 A/G Ratio 1.6 (Normal) Range: 1.1-2.5 Alkaline Phosphatase, S 75 [iU]/L (Normal) Range: 25-165 Bilirubin, Total 0.4 mg/dL (Normal) Range: 0.0-1.2 Globulin, Total 2.5 g/dL (Normal) Range: 1.5-4.5 Albumin, Serum 4.1 g/dL (Normal) Range: 3.6-4.8 Calcium, Serum 9.1 mg/dL (Normal) Range: 8.6-10.2 Protein, Total, Serum 6.6 g/dL (Normal) Range: 6.0-8.5 Carbon Dioxide, Total 25 mmol/L (Normal) Range: 20-32 Chloride, Serum 104 mmol/L (Normal) Range: 97-108 Potassium, Serum 4.1 mmol/L (Normal) Range: 3.5-5.2 BUN/Creatinine Ratio 13 (Normal) Range: 8-27 eGFR AfricanAmerican >59 mL/min/1.73 Comments: Note: Persistent reduction for 3 months or more in an eGFR<60 mL/min/1.73 m2 defines CKD. Patients with eGFR values>/=60 mL/min/1.73 m2 may also have CKD if evidence of persistentproteinuria is (Normal) present. Additional information may be found [email or web address]. Sodium, Serum 143 mmol/L (Normal) Range: 135-145 Creatinine, Serum 0.84 mg/dL (Normal) Range: 0.57-1.00 eGFR >59 mL/min/1.73 (Normal) BUN 11 mg/dL (Normal) Range: 5-26 Glucose, Serum 82 mg/dL (Normal) Range: 65-99 44-Dhz-46402:34 CBC WITH MANUAL DIFF Comments: PATIENT WAS FASTINGPERFORMED BY: [facility]CoHealth[facility] UnionJezbwt8985 [facility] [id number] Information: ADD [id number] AND DRAW FEE [id number] [phone] ([id number]) Immature Grans (Abs) 0.0 {x10E3/uL} (Normal) Range: 0.0-0.1 Baso (Absolute) 0.0 {x10E3/uL} (Normal) Range: 0.0-0.2 Immature Granulocytes 0 % (Normal) Range: 0-1 Eos (Absolute) 0.1 {x10E3/uL} (Normal) Range: 0.0-0.4 Lymphs (Absolute) 1.9 {x10E3/uL} (Normal) Range: 0.7-4.5 Monocytes(Absolute) 0.4 {x10E3/uL} (Normal) Range: 0.1-1.0 Neutrophils (Absolute) 3.5 {x10E3/uL} (Normal) Range: 1.8-7.8 Basos 1 % (Normal) Range: 0-3 Eos 2 % (Normal) Range: 0-7 Monocytes 6 % (Normal) Range: 4-13 Lymphs 32 % (Normal) Range: 14-46 Neutrophils 59 % (Normal) Range: 40-74 Platelets 276 {x10E3/uL} (Normal) Range: 140-415 MCHC 32.7 g/dL (Normal) Range: 32.0-36.0 RDW 14.0 % (Normal) Range: 11.7-15.0 MCH 29.7 pg (Normal) Range: 27.0-34.0 MCV 91 fL (Normal) Range: 80-98 Hematocrit 41.9 % (Normal) Range: 34.0-44.0 Hemoglobin 13.7 g/dL (Normal) Range: 11.5-15.0 RBC 4.62 {x10E6/uL} (Normal) Range: 3.80-5.10 WBC 5.9 {x10E3/uL} (Normal) Range: 4.0-10.5 :34 Vitamin D Hydroxy (25424) Comments: PATIENT WAS FASTINGPERFORMED BY: [employer] Ufsgap5848 [facility] [id number] Vitamin D, 25-Hydroxy 48.1 ng/mL (Normal) Range: 32.0-100.0 Comments: Recent studies consider the lower limit of 32.0 ng/mL to be athreshold for optimal health.Simon NUNEZ. J Nutr. 2004;135(2):317-22. 81-Asb-442796:18 Prothrombin Time (PT) Comments: PERFORMED BY: PRANEETH [employer] [facility] [id number] Prothrombin Time 26.5 {sec} (Abnormal) Range: 8.7-11.5 INR 2.7 (Abnormal) Range: 0.8-1.2 Comments: Reference interval is for non-anticoagulated patients..Suggested INR therapeutic range for Vitamin Kantagonist therapy:Standard Dose (moderate intensitytherapeutic range): 2.0 - 3.0Higher intensity therapeutic range 2.5 - 3.5 90-Uxr-858733:55 Prothrombin Time (PT) Comments: PERFORMED BY: [facility]6370 [facility] [id number] Prothrombin Time 27.7 {sec} (Abnormal) Range: 8.7-11.5 INR 2.8 (Abnormal) Range: 0.8-1.2 Comments: Reference interval is for non-anticoagulated patients..Suggested INR therapeutic range for Vitamin Kantagonist therapy:Standard Dose (moderate intensitytherapeutic range): 2.0 - 3.0Higher intensity therapeutic range 2.5 - 3.5 4-Ddr-439567:49 Prothrombin Time (PT) Comments: PERFORMED BY: [facility] [id number] Prothrombin Time 26.0 {sec} (Abnormal) Range: 8.7-11.5 INR 2.6 (Abnormal) Range: 0.8-1.2 Comments: Reference interval is for non-anticoagulated patients..Suggested INR therapeutic range for Vitamin Kantagonist therapy:Standard Dose (moderate intensitytherapeutic range): 2.0 - 3.0Higher intensity therapeutic range 2.5 - 3.5 74-Fuv-71676:37 CHEST WITH CONTRAST Radiology Report See Note (Normal) Comments: Exam Number: [id number] CLINICAL:Fluoroscopy study for pulmonary embolism and lymphadenopathy CT CHEST WITH CONTRAST TECHNIQUE:High resolution transaxial imaging was performed followingintravenous admini stration of 100ml of Isovue-300 contrast material. COMPARISON:08/25/2009 FINDINGS:Normal visualized trachea and bronchi. There is moderate emphysema bilaterally.. There is a stable 1 cm oblong noncalcifi ed subpleural nodule in theright lower lobe (image 80). Stable 4-mm noncalcified subpleuralnodule in the right upper lobe (image 81). Normal pleura. Normal heart and pericardium. There is a persistent 1 cm saddle embolus in the right lower lobepulmonary artery bifurcation. The segmental and subsegmentalpulmonary emboli are no longer seen Normal thoracic aorta and visualized great vessels. Normal med iastinum. Normal hilar regions. Normal chest wall structures. Normal osseous structures. Normal visualized upper abdomen. IMPRESSION:Residual embolus in the right lower lobe pulmonary artery. Thepulm onary embolism has significantly improved.Stable right lung nodules. Follow- up with CT scan in 3 months isadvised.Emphysema.No mediastinal lymphadenopathy. Reported By: DONELL FERGUSON 0-Gls-896788:16 Prothrombin Time (PT) Comments: PERFORMED BY: [facility] [id number] Prothrombin Time 25.2 {sec} (Abnormal) Range: 8.7-11.5 INR 2.6 (Abnormal) Range: 0.8-1.2 Comments: Reference interval is for non-anticoagulated patients..Suggested INR therapeutic range for Vitamin Kantagonist therapy:Standard Dose (moderate intensitytherapeutic range): 2.0 - 3.0Higher intensity therapeutic range 2.5 - 3.5 07-Pxl-152853:50 Prothrombin Time (PT) Comments: PERFORMED BY: [employer]70 [facility] [id number] Prothrombin Time 29.3 {sec} (Abnormal) Range: 8.7-11.5 INR 3.0 (Abnormal) Range: 0.8-1.2 Comments: Reference interval is for non-anticoagulated patients..Suggested INR therapeutic range for Vitamin Kantagonist therapy:Standard Dose (moderate intensitytherapeutic range): 2.0 - 3.0Higher intensity therapeutic range 2.5 - 3.5 53-Uee-785198:07 Prothrombin Time (PT) Comments: PERFORMED BY: [employer] [facility] [id number] Prothrombin Time 19.4 {sec} (Abnormal) Range: 8.7-11.5 INR 1.9 (Abnormal) Range: 0.8-1.2 Comments: Reference interval is for non-anticoagulated patients..Suggested INR therapeutic range for Vitamin Kantagonist therapy:Standard Dose (moderate intensitytherapeutic range): 2.0 - 3.0Higher intensity therapeutic range 2.5 - 3.5 82-Rfg-415678:16 Prothrombin Time (PT) Comments: PERFORMED BY: PRANEETH [employer] BurciagaWpecah0659 Mark RdzAt[facility] [id number] Prothrombin Time 21.6 {sec} (Abnormal) Range: 8.7-11.5 INR 2.2 (Abnormal) Range: 0.8-1.2 Comments: Reference interval is for non-anticoagulated patients..Suggested INR therapeutic range for Vitamin Kantagonist therapy:Standard Dose (moderate intensitytherapeutic range): 2.0 - 3.0Higher intensity therapeutic range 2.5 - 3.5 04-Jxs-86767:21 MYOCARD PERF STRESS/REST MULT Radiology Report See Note (Normal) Comments: Exam Number: [id number] REGADENOSON CARDIOLITE STUDY HISTORYThis is a 64-year-old female who presents with shortness of breath. TECHNIQUEThe patient was injected with 10.9 mCi of Tc99m Cardiolite andrest ing SPECT images were acquired in the horizontal long, verticallong and short axes views. The patient subsequently underwentregadenoson infusion and was injected with 0.4 mg over 10 seconds.20 seconds post regadenoson infusion, the patient was injected with33.7 mCi of Tc99m Cardiolite and post-regadenoson SPECT images wereacquired in the horizontal long, vertical long and short axes views. INTERPRETA TIONRest images demonstrate normal perfusion throughout the leftventricle. There are no resting defects noted. With regadenosoninfusion perfusion again appears to be normal. There are no fixeddefe cts to suggest infarct. There are no reversible defectsdeveloping with regadenoson to suggest inducible ischemia. Estimatedejection fraction by gated SPECT imaging was 66% with normal wallmotion and brightening in all segments. CONCLUSIONNormal regadenoson Cardiolite study with no evidence of infarct orinducible ischemia. Reported By: OSCAR PALACIOS M.D. 30-Yyx-377415:41 Prothrombin Time (PT) Comments: [facility]FORMED BY: [facility] [id number] Prothrombin Time 19.6 {sec} Range: 8.7-11.5 (Abnormal) INR 2.0 (Abnormal) Range: 0.8-1.2 Comments: Reference interval is for non-anticoagulated patients..Suggested INR therapeutic range for Vitamin Kantagonist therapy:Standard Dose (moderate intensitytherapeutic range): 2.0 - 3.0Higher intensity therapeutic range 2.5 - 3.5 08-Oct-2009 Vitamin D, 25-Hydroxy 21.4 ng/mL Comments: PERFORMED BY: [facility]6370 [facility] [id number] 11:41 (Abnormal) Range: 32.0-100.0 Comments: Recent studies consider the lower limit of 32.0 ng/mL to be athreshold for optimal health.Simon NUNEZ. J Nutr. 2004;135(2):317-22. 8-Scs-760038:50 Prothrombin Time (PT) Comments: PERFORMED BY: [facility]6370 [facility] [id number] Prothrombin Time 18.2 {sec} (Abnormal) Range: 8.7-11.5 INR 1.8 (Abnormal) Range: 0.8-1.2 Comments: Reference interval is for non-anticoagulated patients..Suggested INR therapeutic range for Vitamin Kantagonist therapy:Standard Dose (moderate intensitytherapeutic range): 2.0 - 3.0Higher intensity therapeutic range 2.5 - 3.5 6-Yvs-832939: LDH 201 [iU]/L (Normal) Comments: PERFORMED BY: [facility]6370 [facility] [id number] Range: 100-250 2-Ejz-220577:33 Prothrombin Time (PT) Comments: PERFORMED BY: [facility]6370 [facility] [id number] Prothrombin Time 14.6 {sec} (Abnormal) Range: 8.7-11.5 INR 1.4 (Abnormal) Range: 0.8-1.2 Comments: Reference interval is for non-anticoagulated patients..Suggested INR therapeutic range for Vitamin Kantagonist therapy:Standard Dose (moderate intensitytherapeutic range): 2.0 - 3.0Higher intensity therapeutic range 2.5 - 3.5 LDH 227 U/L (Abnormal) Range: 100-190 :50 :00 A-CARDIO [id number] ANTICARDIO IgG < 6 {GPL_U/mL} (Normal) Range: 0-10 Comments: Negative: <11Indeterminate: 11 - 19Low-Med Positive: 20 - 80Positive: >80 ANTICARDIO IgM 7 {MPL_U/mL} (Normal) Range: 0-9 Comments: Negative: <10Indeterminate: 10 - 19Low-Med Positive: 20 - 80Positive: >80Performed At: [facility] [place], [place] [id number] : C-REACTIVE PROT < 2.90 mg/L (Normal) Comments: ADD CRP 00 Range: 0.0-3.0 Comments: C-Reactive Protein (CRP) provides useful information for thediagnosis, therapy and monitoring of inflammatory processesand associated diseases. For the evaluation of Relative Riskfor Cardiovascular Dise ase, a High Sensitivity CRP (HSCRP)should be ordered. :00 CBCD,SMEAR DIFF BAND 3 % (Normal) Range: 0-5 CELLS COUNTED 100 (Normal) EOS 1 % (Normal) Range: 0-5 HYPOCHROMASIA RARE (Normal) LYMPH 34 % (Normal) Range: 19-41 MONOCYTE 5 % (Normal) Range: 0-10 PLT EST SeeNote (Normal) Comments: Result: ADEQUATE RED CELL MORPH N CYTIC {NORMAL} (Normal) SEGS 57 % (Normal) Range: 47-70 HCT 36.1 % (Abnormal) Range: 37-47 HGB 11.8 g/dL (Abnormal) Range: 12.0-16.0 MCH 29.7 pg (Normal) Range: 27.0-32.0 MCHC 32.6 g/dL (Normal) Range: 32-36 MCV 91.3 fL (Normal) Range: 81-99 PLT 351 K/mm3 (Normal) Range: 150-450 RBC 3.96 {M/mm3} (Abnormal) Range: 4.2-5.4 RDW 14.4 % (Normal) Range: 11.6-14.6 WBC 8.4 K/mm3 (Normal) Range: 4.4-11.0 :00 COMP METABOLIC Comments: ADD CRP A/G 1.0 {RATIO} (Normal) Range: 0.9-2.4 ALB 3.5 g/dL (Normal) Range: 3.4-5.0 ALK P 74 U/L (Normal) Range: 50-136 ALT 22 U/L (Normal) Range: 12-78 AST 11 U/L (Abnormal) Range: 15-37 CA 8.8 mg/dL (Normal) Range: 8.5-10.1 CL 102 mmol/L (Normal) Range: 98-107 CO2 27.0 mmol/L (Normal) Range: 21.0-32.0 GAP 11 (Normal) Range: 5-15 GLOB 3.4 g/dL (Normal) Range: 2.7-4.2 K 3.7 mmol/L (Normal) Range: 3.5-5.1 NA 140 mmol/L (Normal) Range: 136-145 T BILI 0.20 mg/dL (Normal) Range: 0.00-1.00 BUN 12 mg/dL (Normal) Range: 7-18 BUN/CRE 15.0 {RATIO} (Normal) Range: 10-20 CREAT,SERUM 0.8 mg/dL (Normal) Range: 0.6-1.0 EST GFR 76 mL/min (Normal) EST GFR - AA 92 mL/min (Normal) GLU 98 mg/dL (Normal) Range: 70-110 T PROT 6.9 g/dL (Normal) Range: 6.4-8.2 :00 ESR SED RATE 11 mm/h (Normal) Range: 0-30 02-Zff-04058:49 PET/CT TUMOR BASE TO MID THIGH Radiology Report See Note (Normal) Comments: Exam Number: [id number] EXAM: Body PET study INDICATIONS: A 64-year-old female with history of recent diagnosisof pulmonary embolus and delineation of right hilar lymphadenopathydescribed on CT of the thorax report dated 08/25/09. LOCATION: Subcarinal right thoracic perihilum level 5-6SIZE:SUV: 2.1 (max)ETIOLOGY: Quantitative criteria for centrally locatedthoracic/mediastinal viable neoplasm are not fulfilled TECHNIQUE: Following the IV administration of 13.7 mCi of F- 18deoxyglucose, multiplanar image acquisitions of the neck, chest,abdomen and pelvis to level of mid thigh, obtained at one hour postradiopharmaceutical administration contemporaneously interpretedwith the current CT of the neck, chest, abdomen and pelvis to levelof mid thigh, dated 09/14/09 via coregistration reveals: FINDINGS: Mild increased glucose metabolism is identified in the subcarinalright thoracic perihilum involving level 5-6. The calculatedmaximum standard uptake value is noted to be 2.1. Quantitativecriteria for centrally located thoracic/mediastinal viable neoplasmare not fulfilled. Normal physiologic distribution of the radiopharmaceutical isapparent in the hepatic (2.5) and splenic parenchyma, both renalunit s, bladder and visualized intestinal tract. The visualizedportion of the cerebral cortex, as well as cerebellar hemispheresdemonstrate symmetric and preserved glucose metabolism. Prominentheterogeneou s radiopharmaceutical concentration is defined in thebilateral supraclavicular regions without corresponding soft tissueon review of CT of the neck-thorax dated 09/14/09, consistent withthe presence of visualized supraclavicular adipose tissue. There isprominent thoracic paravertebral muscle tension artifact.Calcified granulomas are defined within the splenic parenchyma.Atherosclerotic calcification is demonstrated in thethoracic-abdominal aorta without evidence of dilatation- aneurysmformation. Emphysematous changes are identified in the bilateralhemithorax. IMPRESSION:1. NEGATIVE EXAMINATION. T here is no definitive quantitativescintigraphic evidence of viable neoplasm. 2. Mild increased radiopharmaceutical concentration observed in thesubcarinal right thoracic perihilum does not fulfill crista titativecriteria for centrally located thoracic/mediastinal viable neoplasm.(Vaneenkileandra et al, Journal of Clinical Oncology 16:2142, 1998). 3. Heterogeneous radiopharmaceutical concentration noted i n thebilateral supraclavicular regions is consistent with the presence ofvisualization of brown adipose tissue, with associated thoracicparavertebral muscle tension artifact. (Cristiana, [facility] [place] al of Nuclear Medicine 29:1393, 2002). Reported By: VERÓNICA CHAPA 58-Fag-750872:15 PRO TIME Comments: CALL RESULTS TO DR. PEACOCK [phone] CALLED TO Jerome RAMON 09/10/09 LEO THAKUR.REPORT READ BACK BY SAME.; see not in emr to DF INR 3.2 (Normal) PROTIME 37.3 s (Abnormal) Range: 9.1-11.7 :47 TSH (70014) Comments: PATIENT NOT FASTINGPERFORMED BY: [employer] Ktzvdb1196 [facility] [id number] TSH 1.520 {uIU/mL} (Normal) Range: 0.450-4.500 :47 CBC WITH MANUAL DIFF Comments: PATIENT NOT FASTINGPERFORMED BY: [employer] Shnxlf6051 [facility] [id number] Information: [id number] ([id number]) Baso (Absolute) 0.0 {x10E3/uL} (Normal) Range: 0.0-0.2 Eos (Absolute) 0.1 {x10E3/uL} (Normal) Range: 0.0-0.4 Lymphs (Absolute) 1.7 {x10E3/uL} (Normal) Range: 0.7-4.5 Monocytes(Absolute) 0.6 {x10E3/uL} (Normal) Range: 0.1-1.0 Neutrophils (Absolute) 8.8 {x10E3/uL} (Abnormal) Range: 1.8-7.8 Basos 0 % (Normal) Range: 0-3 Eos 1 % (Normal) Range: 0-7 Lymphs 15 % (Normal) Range: 14-46 Monocytes 5 % (Normal) Range: 4-13 Neutrophils 79 % (Abnormal) Range: 40-74 Platelets 578 {x10E3/uL} (Abnormal) Range: 140-415 RDW 14.4 % (Normal) Range: 11.7-15.0 MCHC 33.4 g/dL (Normal) Range: 32.0-36.0 MCH 30.7 pg (Normal) Range: 27.0-34.0 MCV 92 fL (Normal) Range: 80-98 Hematocrit 35.8 % (Normal) Range: 34.0-44.0 Hemoglobin 12.0 g/dL (Normal) Range: 11.5-15.0 RBC 3.90 {x10E6/uL} (Normal) Range: 3.80-5.10 WBC 11.1 {x10E3/uL} (Abnormal) Range: 4.0-10.5 8-Zus-873250:47 METABOLIC PANEL, COMPREHENSIVE Comments: PATIENT NOT FASTINGPERFORMED BY: [facility] UnionKpmssd4690 [facility] [id number] ([id number]) ALT (SGPT) 38 [iU]/L (Normal) Range: 0-40 AST (SGOT) 27 [iU]/L (Normal) Range: 0-40 A/G Ratio 1.4 (Normal) Range: 1.1-2.5 Alkaline Phosphatase, S 94 [iU]/L (Normal) Range: 25-165 Bilirubin, Total 0.4 mg/dL (Normal) Range: 0.1-1.2 Albumin, Serum 4.1 g/dL (Normal) Range: 3.6-4.8 Globulin, Total 2.9 g/dL (Normal) Range: 1.5-4.5 Calcium, Serum 9.6 mg/dL (Normal) Range: 8.6-10.2 Carbon Dioxide, Total 25 mmol/L (Normal) Range: 20-32 Chloride, Serum 99 mmol/L (Normal) Range: 97-108 Protein, Total, Serum 7.0 g/dL (Normal) Range: 6.0-8.5 Potassium, Serum 4.3 mmol/L (Normal) Range: 3.5-5.2 Sodium, Serum 136 mmol/L (Normal) Range: 135-145 BUN 15 mg/dL (Normal) Range: 5-26 BUN/Creatinine Ratio 19 (Normal) Range: 8-27 Creatinine, Serum 0.80 mg/dL (Normal) Range: 0.57-1.00 eGFR >59 mL/min/1.73 (Normal) eGFR AfricanAmerican >59 mL/min/1.73 Comments: Note: Persistent reduction for 3 months or more in an eGFR<60 mL/min/1.73 m2 defines CKD. Patients with eGFR values>/=60 mL/min/1.73 m2 may also have CKD if evidence of persistentproteinuria is (Normal) present. Additional information may be found [email or web address]. Glucose, Serum 94 mg/dL (Normal) Range: 65-99 4-Alh-826807:47 LDH (LD) (LACTATE DEHYDROGENASE) Comments: PATIENT NOT FASTINGPERFORMED BY: [facility]6370 [facility] [id number] ([id number]) LDH 410 [iU]/L (Abnormal) Range: 100-250 3-Zwu-008508:47 URINE HARJIT CULTURE (CRISTA COL Comments: PATIENT NOT FASTINGPERFORMED BY: [facility]6370 [facility] [id number] COUNT) ([id number]) Result 1 MUG (Normal) Comments: Mixed urogenital flora3,000 Colonies/mL . Urine Final report (Normal) Culture,Comprehensive 55-Pbo-98000:49 VIT D,25 68047 43.4 ng/mL (Normal) Range: 32.0-100.0 Comments: Recent studies consider the lower limit of 32.0 ng/mL to jaci threshold for optimal health.Montes . J Nutr. 2004;135(2):317-22.Performed At: [facility] [place] [address] [id number] 92-Pfd-388687:4 VIT D,25 75018 26.2 ng/mL (Abnormal) Range: 32.0-100.0 0 Comments: Recent studies consider the lower limit of 32.0 ng/mL to jaci threshold for optimal health.Montes BW. J Nutr. 2004;135(2):317-22.Performed At: [address] [id number] 28-Dpx-119507:26 BILAT SCRN DIGITAL & CAD Radiology Report See Note (Normal) Comments: Exam Number: [id number] MAMMOGRAM, BILATERAL SCREENING DIGITAL AND CAD HISTORYRoutine screening. Full field digital images were obtained in mediolateral oblique andcraniocaudal projections. CAD images w ere reviewed. The current study is compared to the examinations of May 2004 andJuly 2006. There is a mild extent of fibroglandular parenchyma present. There isno skin thickening or retraction, architectural distortion or clusterof suspicious microcalcifications. There is a small density in theupper outer quadrant of the left breast. This is stable and mayrepresent a normal lymph node. I f there is no suspicious palpableabnormality, followup mammogram in 1 year is recommended. IMPRESSIONThere is no radiographic evidence of malignancy identified. FINAL ASSESSMENTBenign findings. BIRA DS Category 2. A letter regarding these results has been sent to the patient. This interpretation was rendered by a radiologist certified under theMammography Quality Standards Act of 1992 (MQSA). The mammograms werealso examined with computer-aided detection software ([employer]). Reported By: VIKTORIYA MAJANO M.D. 94-Tol-996726:25 DEXA BONE DENSITY STUDY (HP) Radiology Report See Note (Normal) Comments: Exam Number: [id number] BONE DENSITOMETRY HISTORYOsteopenia. TECHNIQUE Bone densitometry of the lumbar spine and left hip was performed. Thebest criteria for evaluation of osteoporosis is the T-valu e, whichrepresents the comparison of the patient's bone mass to an expectedpeak bone mass. For most patients, the mean T-value of L1 through L4is used to evaluate the lumbar spine. Based on the newest WorldHealth Organization classifications, the hip is evaluated by utilizingthe lower of the T-value of the total hip or the T-value of thefemoral neck. FINDINGSIn this patient, the mean T-value of L1 through L4 is -0.6 which isnormal. Bone mineral density is measured at 0.8% greater than in 1999and 2% less than in 2006. Digital lateral view for evaluation ofvertebral deformity only demonstrates sl ight loss of anterior heightof T8. Incidental note is made of grade 1 to 2 spondylolisthesis atL5-S1. The T-value of the left femoral neck is -1.7 which is in therange of osteopenia. The T-value of the total left hip is -1.1 whichis in the range of osteopenia. Bone mineral density is measured at9.9% less than in 1998 and 5.5% less than in 2006. IMPRESSIONBone densitometry of the lumbar spine is withi n normal limits. Thereis osteopenia of the left hip. Reported By: VIKTORIYA MAJANO M.D. 22-Kra-47976:20 CBCD,SMEAR DIFF BAND 1 % (Normal) Range: 0-5 CELLS COUNTED 100 (Normal) EOS 2 % (Normal) Range: 0-5 HCT 39.2 % (Normal) Range: 37-47 HGB 13.2 g/dL (Normal) Range: 12.0-16.0 LYMPH 29 % (Normal) Range: 19-41 MCH 29.8 pg (Normal) Range: 27.0-32.0 MCHC 33.8 g/dL (Normal) Range: 32-36 MCV 88.0 fL (Normal) Range: 81-99 MONOCYTE 1 % (Normal) Range: 0-10 PLT 299 K/mm3 (Normal) Range: 150-450 PLT EST SeeNote (Normal) Comments: Result: ADEQUATE RBC 4.45 {M/mm3} (Normal) Range: 4.2-5.4 RDW 13.4 % (Normal) Range: 11.6-14.6 RED CELL MORPH SeeNote {NORMAL} (Normal) Comments: Result: NORM C+C SEGS 67 % (Normal) Range: 47-70 WBC 6.0 K/mm3 (Normal) Range: 4.4-11.0 15-Rel-04181:20 COMP METABOLIC A/G 1.1 {RATIO} (Normal) Range: 0.9-2.4 ALB 3.5 g/dL (Normal) Range: 3.4-5.0 ALK P 77 U/L (Normal) Range: 50-136 ALT 34 U/L (Normal) Range: 30-65 AST 19 U/L (Normal) Range: 15-37 BUN 15 mg/dL (Normal) Range: 7-18 BUN/CRE 16.7 {RATIO} (Normal) Range: 10-20 CA 8.8 mg/dL (Normal) Range: 8.5-10.1 CL 102 mmol/L (Normal) Range: 98-107 CO2 30.0 mmol/L (Normal) Range: 21.0-32.0 CREAT,SERUM 0.9 mg/dL (Normal) Range: 0.6-1.0 GAP 6 (Normal) Range: 5-15 GLOB 3.3 g/dL (Normal) Range: 2.7-4.2 K 3.7 mmol/L (Normal) Range: 3.5-5.1 NA 138 mmol/L (Normal) Range: 136-145 T BILI 0.28 mg/dL (Normal) Range: 0.00-1.00 T PROT 6.8 g/dL (Normal) Range: 6.4-8.2 GLU 79 mg/dL (Normal) Range: 70-110 :20 LIPID CHOL 183 mg/dL (Normal) Comments: <200 mg/dL Desirable 200-240 mg/dL Borderline >240 mg/dL High Risk HDL 58 mg/dL (Normal) Comments: Reference Range HDL <40 mg/dL Low HDL Cholesterol HDL >or= 60 mg/dL High HDL Cholesterol LDL 104 mg/dL (Normal) Range: 0-130 TRIG 104 mg/dL (Normal) Comments: Serum Triglycerides Reference Interval Normal <150 mg/dL Borderline high 150 - 199 mg/dL High 200 - 499 mg/dL Very High > or = 500 mg/dL VLDL 21 mg/dL (Normal) Range: 5-40 :20 TSH 1.88 {uIU/mL} (Normal) Range: 0.34-4.82 :20 VIT D,25 81202 21.4 ng/mL (Abnormal) Range: 32.0-100.0 Comments: Recent studies consider the lower limit of 32.0 ng/mL to jaci threshold for optimal health.Simon NUNEZ. J Nutr. 2004;135(2):317-22.Performed At: [address] [id number] :20 VITAMIN B12 685 pg/mL (Normal) Range: 211-911 43-Ixw-412625:11 Thin prep Pap (79186) Comments: Source.............CervicalLMP / Prev Treat...DII=[id number]. of containers..01 CYTYC Thin Prep VialPATIENT NOT FASTINGClinical Information: ADD [id number] PERFORMED BY: [facility] [id number] . . (Normal) DIAGNOSIS: SPRCS (Normal) Comments: NEGATIVE FOR INTRAEPITHELIAL LESION AND MALIGNANCY.CELLULAR CHANGES ASSOCIATED WITH ATROPHY ARE PRESENT.Satisfactory for evaluation. Endocervical component may not bedistinguished in cases of atrophy.V 72.31 ; Routine gynecological examinationShawn Elam, Automobile Detailer (ASCP)Clari Hernandez, Supervisory Automobile Detailer (ASCP) Note: PAPSMR (Normal) Comments: The Pap smear is a screening test designed to aid in the detection ofpremalignant and malignant conditions of the uterine cervix. It is not adiagnostic procedure and should not be used as the sole mean s of detectingcervical cancer. Both false-positive and false-negative reports do occur. .The HPV DNA reflex criteria were not met with this specimen resulttherefore, no HPV testing was performed. . 4-Vjg-449759:48 KNEE,4 OR MORE VIEWS Radiology Report See Note (Normal) Comments: Exam Number: [id number] FOUR VIEWS LEFT KNEE AP, LATERAL, TUNNEL VIEW, PATELLAR VIEW HISTORYPain. There is moderate to marked narrowing on the medial aspect of the kneejoint. There is pointing of the ti bial spines. No fracture is noted.There is a small effusion. IMPRESSION1. Moderate degenerative changes medial aspect of the knee. Theyhave increased from the study of February 16, 2006.2. A small effus ion is also noted. Reported By: NITZA DIAZ M.D. Plan of Care Name Dates Details Instructions Coronary artery disease, non-occlusive : Eprescribed prescriptions (G8553) Indication: Coronary artery disease, non-occlusive [facility] WELLNESS EXAM : Eprescribed prescriptions (G8553) Indication: [facility] WELLNESS EXAM Elevated hemoglobin A1c : Eprescribed prescriptions (G8553) Indication: Elevated hemoglobin A1c Elevated hemoglobin A1c : Eprescribed prescriptions (G8553) Indication: Elevated hemoglobin A1c Chronic obstructive pulmonary disease : Eprescribed prescriptions (G8553) Indication: Chronic obstructive pulmonary disease BMI 26.0-26.9,adult : Eprescribed prescriptions (G8553) Indication: BMI 26.0-26.9,adult Former smoker : Eprescribed prescriptions (G8553) Indication: Former smoker BMI 26.0-26.9,adult : Eprescribed prescriptions (G8553) Indication: BMI 26.0-26.9,adult Former smoker : Blood Glucose Test: blood Indication: Former smoker Ulnar tunnel syndrome of right wrist : Eprescribed prescriptions (G8553) Indication: Ulnar tunnel syndrome of right wrist Elevated hemoglobin A1c : Diet, Exercise, and Wt loss Indication: Elevated hemoglobin A1c [facility] Wellness Physical : Eprescribed prescriptions (G8553) Indication: [facility] Wellness Physical COPD with acute exacerbation (Renamed from Acute exacerbation of chronic obstructive airways disease) : Eprescribed prescriptions (G8553) Indication: COPD with acute exacerbation (Renamed from Acute exacerbation of chronic obstructive airways disease) COPD with acute exacerbation (Renamed from Acute exacerbation of chronic obstructive airways disease) : Cough Medicines, Nonprescription: cough suppressants Indication: COPD with acute exacerbation (Renamed from Acute exacerbation of chronic obstructive airways disease) COPD with acute exacerbation (Renamed from Acute exacerbation of chronic obstructive airways disease) : Eprescribed prescriptions (G8553) Indication: COPD with acute exacerbation (Renamed from Acute exacerbation of chronic obstructive airways disease) Other hyperlipidemia : Eprescribed prescriptions (G8553) Indication: Other hyperlipidemia Other hyperlipidemia : Diet, Exercise, and Wt loss Indication: Other hyperlipidemia Other hyperlipidemia : Eprescribed prescriptions (G8553) Indication: Other hyperlipidemia Chronic obstructive pulmonary disease : Eprescribed prescriptions (G8553) Indication: Chronic obstructive pulmonary disease Chronic obstructive pulmonary disease : Eprescribed prescriptions (G8553) Indication: Chronic obstructive pulmonary disease Chronic obstructive pulmonary disease : Eprescribed prescriptions (G8553) Indication: Chronic obstructive pulmonary disease Cough : Follow up if no improvement or if symptoms worsen Indication: Cough Bronchitis, acute : *Antibiotic Usage Education - Female Indication: Bronchitis, acute Influenza B : Flu (Influenza) *: flu Indication: Influenza B Osteopenia of multiple sites : Osteoporosis in Women *: bone density Indication: Osteopenia of multiple sites Chronic obstructive pulmonary disease : Chronic Obstructive Pulmonary Disease (COPD) *: breathing Indication: Chronic obstructive pulmonary disease Rhinitis, allergic : FOLLOW UP NEEDED Indication: Rhinitis, allergic Bronchitis : *URI Treatment Indication: Bronchitis Bronchitis : *URI Symptoms Indication: Bronchitis Bronchitis : *Antibiotic Usage Education - Female Indication: Bronchitis Well woman exam : Colon Cancer Screening Indication: Well woman exam Well woman exam : Pap/Pelvic/Bimanual/Rectal/Breast Exam was done. Indication: Well woman exam Well woman exam : Well Female Maintenance (KF) Indication: Well woman exam Planned Observations Vitamin B-12 (cyanocobalamin) (01639)Indication: Paresthesia On: 8-Mbd-573130:15 Request LIPID PANEL (78671)Indication: Other hyperlipidemia On: :15 Request MICROALBUMIN: CREATININE RATIO (34651) AND (47110)Indication: Elevated hemoglobin A1c On: :15 Request METABOLIC PANEL, COMPREHENSIVE (08601)Indication: Elevated hemoglobin A1c On: 6-Ymw-576843:15 Request HGB A1C (22524)Indication: Elevated hemoglobin A1c On: 0-Iwo-151867:15 Request METABOLIC PANEL, COMPREHENSIVE (58013)Indication: Elevated hemoglobin A1c On: :50 Request CBC with auto diff (05425)Indication: Gastroesophageal reflux disease without esophagitis On: :07 Request METABOLIC PANEL, COMPREHENSIVE (06627)Indication: Gastroesophageal reflux disease without esophagitis On: :07 Request LIPID PANEL (24642)Indication: Other hyperlipidemia On: :06 Request TSH (73802)Indication: Thyroid Nodule On: :06 Request Vitamin D Hydroxy (15220)Indication: Vitamin D deficiency, unspecified On: :06 Request CBC W/AUTO DIFF WBC (14564)Indication: Osteopenia of multiple sites On: :14 Request METABOLIC PANEL, COMPREHENSIVE (95860)Indication: Osteopenia of multiple sites On: :14 Request Vitamin D Hydroxy (45317)Indication: Vitamin D deficiency, unspecified On: :13 Request LIPID PANEL (62754)Indication: Other hyperlipidemia On: :13 Request TSH (67489)Indication: Thyroid Nodule On: :13 Request METABOLIC PANEL, COMPREHENSIVE (29249)Indication: Other hyperlipidemia On: :28 Request LIPID PANEL (93229)Indication: Other hyperlipidemia On: 28-Bzh-163914:27 Request Vitamin D Hydroxy (68131)Indication: Vitamin D deficiency, unspecified On: 97-Yju-908047:20 Request Influenza A&B Viral Culture (72289)Indication: Fever and chills On: :48 Request Comments: positive BHad flu shot Vitamin D Hydroxy (50697)Indication: Osteopenia of multiple sites On: 43-Mmu-639599:15 Request Protein S Profile (81455)Indication: Pulmonary embolism (Renamed from PE (pulmonary embolism)) On: 86-Hkc-23050:13 Request Protein C Profile (69452)Indication: Pulmonary embolism (Renamed from PE (pulmonary embolism)) On: :13 Request MTHFR (40327)Indication: Pulmonary embolism (Renamed from PE (pulmonary embolism)) On: :13 Request Antiphospholipid atb (37545)Indication: Pulmonary embolism (Renamed from PE (pulmonary embolism)) On: :13 Request ANTICOAG ANTTHROMB III & ASSAY (97049)Indication: Pulmonary embolism (Renamed from PE (pulmonary embolism)) On: :13 Request ANTITHROMBIN III ACTIVTY (33450)Indication: Pulmonary embolism (Renamed from PE (pulmonary embolism)) On: :13 Request CLOTTING FACTOR II (41137)Indication: Pulmonary embolism (Renamed from PE (pulmonary embolism)) On: :12 Request Factor V Leiden (66346)Indication: Pulmonary embolism (Renamed from PE (pulmonary embolism)) On: :12 Request PTT PLASMA SUBSTITUTION (94880) #[id number]: Pulmonary embolism (Renamed from PE (pulmonary embolism)) On: :12 Request PAL VIPER VENOM-DILUT (23440) #[id number]: Pulmonary embolism (Renamed from PE (pulmonary embolism)) On: :12 Request TSH (92427)Indication: Osteopenia of multiple sites On: :09 Request METABOLIC PANEL, COMPREHENSIVE (39178)Indication: Pulmonary embolism (Renamed from PE (pulmonary embolism)) On: :09 Request CBC WITH MANUAL DIFF (06065)Indication: Pulmonary embolism (Renamed from PE (pulmonary embolism)) On: :09 Request Vitamin D Hydroxy (15470)Indication: Vitamin D deficiency, unspecified On: :09 Request Vitamin D Hydroxy (42122)Indication: Vitamin D deficiency, unspecified On: 2-Qbk-636154:43 Request CBC WITH MANUAL DIFF (05753)Indication: Anemia, unspecified On: 05-Olq-442053:22 Request LDH (LD) (LACTATE DEHYDROGENASE) (34267)Indication: Elevated LFTs On: 17-Dfh-992706:22 Request Urinalysis, Office (44465)Indication: Low back pain (Renamed from LBP (low back pain)) On: 3-Nxz-820031:43 Request Vitamin D Hydroxy (62525)Indication: vit d def On: 89-Jaw-691657:11 Request Vitamin D Hydroxy (25036)Indication: vit d def On: 2-Vdc-849942:14 Request LIPID PANEL (57030)Indication: Well woman exam On: :58 Request METABOLIC PANEL, COMPREHENSIVE (39482)Indication: Osteopenia of multiple sites On: :58 Request CBC WITH MANUAL DIFF (17354)Indication: Osteopenia of multiple sites On: :58 Request Vitamin D Hydroxy (66202)Indication: Osteopenia of multiple sites On: :56 Request TSH (27009)Indication: Osteopenia of multiple sites On: :55 Request VITAMIN B-12 (CYANOCOBALAMIN) (23493)Indication: Paresthesia On: :55 Request Planned Encounters Medical; [facility] 4 Month Fu - On: 06-Nov-2018 13:30 [facility] Fast DO, Isabella A Fast DO, Isabella A Planned Procedures Ultrasound - LiverBy: Fast DO, Isabella On: 20-Aug-2018 Intent A Fast DO, Isabella A Nuclear Stress Test/Stress On: 20-Aug-2018 Intent SPECT/TreadmillBy: Fast DO, Isabella A Fast DO, Isabella A Nerve ConductionBy: Fast DO, Isabella A On: 02-Jul-2018 Intent Fast DO, Isabella A Comments: both legs EMGBy: Fast DO, Isabella A Fast DO, On: 02-Jul-2018 Intent Isabella A Comments: both legs Flu Vaccine (Quadrivalent) 85138Sh: On: 02-Jul-2018 Intent Fast DO, Isabella A Fast DO, Isabella A Comments: Lot #[id number]-L dltd, IMDose prefilled syringegiven by: Jessica reviewed and ABN signed ELECTROCARDIOGRAM, COMPLETE (ECG) On: 02-Jul-2018 Intent (15007)By: Fast DO, Isabella A Fast DO, Comments: ekg showed normal sinus rhythym, normal axis, no acute st/t wave changes Isabella A Ultrasound - ThyroidBy: Fast DO, On: 30-Mar-2018 Intent Isabella A Fast DO, Isabella A SCREENING DIGITAL TOMOSYNTHESIS OF On: 30-Mar-2018 Intent BREAST (36708)By: Fast DO, Isabella A Fast DO, Isabella A Ultrasound - ThyroidBy: Fast DO, On: 24-Nov-2017 Intent Isabella A Fast DO, Isabella A Comments: end december SCREENING DIGITAL TOMOSYNTHESIS OF On: 24-Nov-2017 Intent BREAST (45634)By: Fast DO, Isabella A Fast DO, Isabella A ELECTROCARDIOGRAM, COMPLETE (ECG) On: 19-Jul-2017 Intent (62406)By: Fast DO, Isabella A Fast DO, Comments: ekg showed normal sinus rhythym, normal axis, no acute st/t wave changes prolonged qt unchanged Isabella A Ultrasound - ThyroidBy: Fast DO, On: 13-Dec-2016 Intent Isabella A Fast DO, Isabella A Comments: due 01/17 SCREENING DIGITAL TOMOSYNTHESIS OF On: 13-Dec-2016 Intent BREAST (84938)By: Fast DO, Isabella A Comments: due 01/17 Fast DO, Isabella A MRI OF BRAIN WITH AND WITHOUT On: 19-Aug-2016 Intent CONTRAST (47394)By: Fast DO, Isabella A Fast DO, Isabella A Nerve ConductionBy: Fast DO, Isabella A On: 19-Aug-2016 Intent Fast DO, Isabella A Comments: right arm EMGBy: Fast DO, Isabella A Fast DO, On: 19-Aug-2016 Intent Isabella A Comments: right arm DEXA SCAN AXIAL SKELETON (51351)By: On: 19-Aug-2016 Intent Fast DO, Isabella A Fast DO, Isabella A Flu Vaccine (Quadrivalent) [id number]: On: 19-Aug-2016 Intent Fast DO, Isabella A Fast DO, Isabella A Comments: Lot:[id number]:01/27/17Dose:0.5mLRoute:IMSite:L DltdGiven By:VLAD signed ADMINISTRATION OF INFLUENZA VIRUS On: 19-Aug-2016 Intent VACCINE (G0008)By: Fast DO, Isabella A Fast DO, Isabella A PNEUM VAC ADLT/IMUMNOSPR, SBC/INTRM On: 06-Jul-2016 Intent (84664)By: Fast DO, Isabella A Fast DO, Comments: Lot:[id number]:12/03/17Dose:0.5mgRoute:imSite:norm Knight By:VLAD signed Isabella A MAMMOGRAM, SCREENING, BOTH BREAST On: 04-Sep-2015 Intent (95849)By: Fast DO, Isabella A Fast DO, Isabella A Ultrasound - ThyroidBy: Fast DO, On: 04-Sep-2015 Intent Isabella A Fast DO, Isabella A MAMMOGRAM, SCREENING, BOTH BREAST On: 28-Apr-2015 Intent (16309)By: Fast DO, Isabella A Fast DO, Comments: end apr Isabella A Flu Vaccine (Quadrivalent) 41589Wy: On: 28-Apr-2015 Intent Fast DO, Isabella A Fast DO, Isabella A Comments: Lot #:[id number] date: 12/2015Amount given:prefilled syringeSite given:Norm Jara, RAFAELAGiven by: LUZ Olson and ELENI signed ADMINISTRATION OF INFLUENZA VIRUS On: 28-Apr-2015 Intent VACCINE (G0008)By: Fast DO, Isabella A Fast DO, Isabella A Overnight Pulse OX (14497)By: Luis Alberto On: 02-Mar-2015 Intent DO, Isabella A Fast DO, Isabella A Comments: gave overnight paulse ox to pt with new batteries. Explained to patient how it worked and had her demonstrate it back to me so I knew she was aware. Told patient to bring back before noon if possible on 03/02/15. EKG (54560)By: Fast DO, Isabella A On: 26-Dec-2014 Intent Fast DO, Isabella A Comments: ekg showed normal sinus rhythym, normal axis, no acute st/t wave changes OtherBy: Fast DO, Isabella A Fast DO, On: 02-Sep-2014 Intent Isabella A Comments: sleep study Overnight Pulse OX (03062)By: Luis Alberto On: 29-Aug-2014 Intent DO, Isabella A Fast DO, Isabella A Ultrasound - ThyroidBy: Fast DO, On: 29-Aug-2014 Intent Isabella A Fast DO, Isabella A Prevnar 13 ([id number])By: Loki MARIA, On: 30-May-2014 Intent Sindy Comments: [id number] arm, IMAS Overnight Pulse OX ([id number])By: Luis Alberto On: 30-May-2014 Intent DO, Isabella A Fast DO, Isabella A Comments: On 2 Liters at night Given monitor A Overnight Pulse OX ([id number])By: Luis Alberto On: 23-May-2014 Intent DO, Isabella A Fast DO, Isabella A FLU VAC, SPLIT, >3 YEARS, INTRAMUSC On: 23-May-2014 Intent ([id number])By: Luis Alberto ARCHULETA, Isabella A Fast DO, Comments: Lot #:[id number] date:03/2016Amount given:0.5mlRoute: IMSite given: left deltoidGiven by: SCOUT Merritt A ADMINISTRATION OF INFLUENZA VIRUS On: 23-May-2014 Intent VACCINE ([id number])By: Luis Alberto ARCHULETA, Isabella A Fast DO, Isabella A DEXA SCAN AXIAL SKELETON ([id number])By: On: 11-Apr-2014 Intent Fast DO, Isabella A Fast DO, Isabella A MAMMOGRAM, SCREENING, BOTH BREAST On: 11-Apr-2014 Intent ([id number])By: Luis Alberto ARCHULETA, Isabella A Fast DO, Isabella A Overnight Pulse OX ([id number])By: Luis Alberto On: 11-Apr-2014 Intent DO, Isabella A Fast DO, Isabella A Comments: 2 weeks Radiology - Lumbar SpineBy: Luis Alberto ARCHULETA, On: 11-Apr-2014 Intent Isabella A Fast DO, Isabella A Overnight Pulse OX ([id number])By: Luis Alberto On: 07-Apr-2014 Intent DO, Isabella A Fast DO, Isabella A Six Minute Walk Assessment On: 20-Mar-2014 Intent ([id number])By: Fast DO, Isabella A Fast DO, Isabella A MAMMOGRAM, SCREENING, BOTH BREASTS On: 12-Aug-2013 Intent ([id number])By: Fast DO, Isabella A Fast DO, Isabella A DXA, BONE DENSITY, AXIAL SKELETON On: 12-Aug-2013 Intent ([id number])By: Fast DO, Isabella A Fast DO, Isabella A Aerosol Treatment ([id number])By: Jalil On: 03-Jun-2013 Intent Regien NAGELescribed prescriptions ([id number])By: On: 03-Jun-2013 Intent [place] MARIA MAMMOGRAM, SCREENING, BOTH BREASTS On: 06-May-2013 Intent ([id number])By: Fast DO, Isabella A Fast DO, Comments: aug Isabella A DXA, BONE DENSITY, AXIAL SKELETON On: 06-May-2013 Intent ([id number])By: Fast DO, Isabella A Fast DO, Comments: due in aug Isabella A Ultrasound - ThyroidBy: Fast DO, On: 06-May-2013 Intent Isabella A Fast DO, Isabella A FLU VAC, SPLIT, >3 YEARS, INTRAMUSC On: 06-May-2013 Intent ([id number])By: Merna Hinojosa Comments: Lot #:[id number] date:mount given:0.5mlRoute: IMSite given: L dltdVIS and ABN signedGiven by: SCOUT Merritt ADMINISTRATION OF INFLUENZA VIRUS On: 06-May-2013 Intent VACCINE ([id number])By: Merna Hinojosa Spirometry ([id number])By: Fast DO, On: 20-Aug-2012 Intent Isabella A Fast DO, Isabella A Comments: good effort and curve improve over previous Eprescribed prescriptions ([id number])By: On: 20-Aug-2012 Intent Fast DO, Isabella A Fast DO, Isabella A Pulse Oximetry ([id number])By: Fast DO, On: 20-Aug-2012 Intent Isabella A Fast DO, Isabella A Aerosol Treatment ([id number])By: Fast On: 20-Aug-2012 Intent DO, Isabella A Fast DO, Isabella A MAMMOGRAM, SCREENING, BOTH BREASTS On: 30-May-2012 Intent ([id number])By: Fast DO, Isabella A Fast DO, Comments: jul Isabella A ADMINISTRATION OF INFLUENZA VIRUS On: 30-May-2012 Intent VACCINE ([id number])By: Merna Hinojosa Comments: Lot #[id number]-L dltd, IMDose prefilled syringegiven by:SHARYN Hester signed FLU VAC, SPLIT, >3 YEARS, INTRAMUSC On: 30-May-2012 Intent ([id number])By: Merna Hinojosa EKG ([id number])By: Fast DO, Isabella A On: 14-Mar-2012 Intent Fast DO, Isabella A Comments: ekg showed normal sinus rhythym, normal axis, no acute st/t wave changes Nerve ConductionBy: Fast DO, Isabella A On: 14-Mar-2012 Intent Fast DO, Isabella A Comments: both arms EMGBy: Fast DO, Isabella A Fast DO, On: 14-Mar-2012 Intent Isabella A Comments: both arms Nuclear Stress Test/Stress On: 14-Mar-2012 Intent SPECT/TreadmillBy: Fast DO, Isabella A Fast DO, Isabella A Eprescribed prescriptions ([id number])By: On: 14-Mar-[address] - ChestBy: Fast DO, Isabella A Fast On: 11-Dec-2011 Intent DO, Isabella A Comments: november MAMMOGRAM, SCREENING, BOTH BREASTS On: 27-Jun-2011 Intent ([id number])By: Fast DO, Isabella A Fast DO, Isabella A CT - ChestBy: Fast DO, Isabella A Fast On: 27-Jun-2011 Intent DO, Isabella A DXA, BONE DENSITY, AXIAL SKELETON On: 27-Jun-2011 Intent ([id number])By: Luis Alberto DO, Isabella A Fast DO, Isabella A FLU VAC, SPLIT, >3 YEARS, INTRAMUSC On: 05-May-2011 Intent ([id number])By: Nieves Valdez LPN Comments: Lot #[id number]/12Site-left deltoidgiven by: Saul Valdez LPN IMMUNIZ ADMNIN, 1 VAC, SNGL/COMBO On: 05-May-2011 Intent ([id number])By: Nieves Valdez LPN Aerosol Treatment ([id number])By: Ciesa On: 15-Dec-2010 Intent MATZO FORMING MACHINE OPERATOR, Emelyn Inhaler Demo ([id number])By: Luis Alberto DO, On: 05-Jul-2010 Intent Isabella A Fast DO, Isabella A DXA, BONE DENSITY, AXIAL SKELETON On: 05-Jul-2010 Intent ([id number])By: Fast DO, Siabella A Fast DO, Comments: july Isabella A CT - ChestBy: Fast DO, Isabella A Fast On: 01-Mar-2010 Intent DO, Isabella A Comments: pe protocol- mid sept MAMMOGRAM, SCREENING, BOTH BREASTS On: 01-Mar-2010 Intent ([id number])By: Chetan Peacock DOa A Fast DO, Isabella A PFT - CompleteBy: Luis Alberto DO, Isabella A On: 01-Mar-2010 Intent Fast DO, Isabella A Nuclear Stress Test/Stress On: 07-Oct-2009 Intent SPECT/AdenosineBy: Fast DO, Isabella A Fast DO, Isabella A EKG ([id number])By: Luis Alberto ARCHULETA Isabella A On: 07-Oct-2009 Intent Fast DO, Isabella A Comments: ekg showed normal sinus rhythym, normal axis, no acute st/t wave changes Pulse Oximetry ([id number])By: Luis Alberto ARCHULETA, On: 02-Sep-2009 Intent Isabella A Luis Alberto DO, Isabella A Comments: 97% Venous Doppler - LowerBy: Luis Alberto ARCHULETA, On: 02-Sep-2009 Intent Isabella A Fast DO, Isabella A Comments: stat today call wet read Pulse Oximetry ([id number])By: Jalil NAGEL, On: 04-Aug-2009 Intent Emelyn Aerosol Treatment ([id number])By: Jalil On: 04-Aug-2009 Intent Regine NAGEL PNEUM VAC ADLT/IMUMNOSPR, SBC/INTRM On: 11-May-2009 Intent ([id number])By: Sivan Yung Comments: Lot #[id number]-right deltoidDose0.5mlgiven by Harpal Yung LPN ADMINISTRATION OF PNEUMOCOCCAL On: 11-May-2009 Intent VACCINE ([id number])By: Sivan Yung FLU VAC, SPLIT, >3 YEARS, INTRAMUSC On: 11-May-2009 Intent ([id number])By: Sivan Yung Comments: Lot #[id number]-left deltoidDose0.5mlgiven by Harpal Yung LPN ADMINISTRATION OF INFLUENZA VIRUS On: 11-May-2009 Intent VACCINE ([id number])By: Sivan Yung Nerve ConductionBy: Luis Alberto DO, Isabella A On: 08-Jul-2008 Intent Fast DO, Isabella A Comments: right arm/ left leg EMGBy: Luis Alberto ARCHULETA Isabella A Fast DO, On: 08-Jul-2008 Intent Isabella A Comments: right arm/left leg MAMMOGRAM, SCREENING, BOTH BREASTS On: 09-Jun-2008 Intent ([id number])By: Fast DO Isabella A Fast DO, Isabella A DXA, BONE DENSITY, AXIAL SKELETON On: 09-Jun-2008 Intent ([id number])By: Fast DO Isabella A Fast DO, Comments: aug 08 Isabella A THER/PROPH/DIAG INJ, SC/IM On: 28-Jan-2008 Intent ([id number])By: Merna Hinojosa TETANUS VAC, ADSORBED, INTRAMUSC On: 28-Jan-2008 Intent ([id number])By: Merna Hinojosa Comments: Lot #:[id number] date:mount given:0.5mlRoute:IM Site given:left deltoidGiven by: SCOUT Merritt Instructions Name Dates Details Coronary artery disease, non-occlusive : How to access health information online Indication: Coronary artery disease, non-occlusive Coronary artery disease, non-occlusive : How to access health information online - Detail Indication: Coronary artery disease, non-occlusive Coronary artery disease, non-occlusive : Patient Instructions Indication: Coronary artery disease, non-occlusive [facility] : How to access health information online Indication: [facility] : How to access health information online - Detail Indication: [facility] : Patient Instructions Indication: [facility] Chronic obstructive pulmonary disease : How to access health information online Indication: Chronic obstructive pulmonary disease Chronic obstructive pulmonary disease : How to access health information online - Detail Indication: Chronic obstructive pulmonary disease Chronic obstructive pulmonary disease : Patient Instructions Indication: Chronic obstructive pulmonary disease Elevated hemoglobin A1c : How to access health information online - Detail Indication: Elevated hemoglobin A1c Elevated hemoglobin A1c : Patient Instructions Indication: Elevated hemoglobin A1c Chronic obstructive pulmonary disease : How to access health information online Indication: Chronic obstructive pulmonary disease Chronic obstructive pulmonary disease : How to access health information online - Detail Indication: Chronic obstructive pulmonary disease Chronic obstructive pulmonary disease : Patient Instructions Indication: Chronic obstructive pulmonary disease BMI 26.0-26.9,adult : How to access health information online Indication: BMI 26.0-26.9,adult BMI 26.0-26.9,adult : How to access health information online - Detail Indication: BMI 26.0-26.9,adult BMI 26.0-26.9,adult : Patient Instructions Indication: BMI 26.0-26.9,adult Rash : How to access health information online Indication: Rash Rash : How to access health information online - Detail Indication: Rash Rash : Patient Instructions Indication: Rash Former smoker : How to access health information online Indication: Former smoker Former smoker : How to access health information online - Detail Indication: Former smoker Former smoker : Patient Instructions Indication: Former smoker BMI 26.0-26.9,adult : How to access health information online Indication: BMI 26.0-26.9,adult BMI 26.0-26.9,adult : How to access health information online - Detail Indication: BMI 26.0-26.9,adult BMI 26.0-26.9,adult : Patient Instructions Indication: BMI 26.0-26.9,adult Ulnar tunnel syndrome of right wrist : How to access health information online Indication: 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 : How to access health information online - Detail Indication: 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 : Patient Instructions Indication: Ulnar tunnel syndrome of right wrist [facility] : How to access health information online Indication: [facility] Physical [facility] : How to access health information online - Detail Indication: [facility] : Patient Instructions Indication: [facility] COPD with acute exacerbation (Renamed from Acute exacerbation of chronic obstructive airways disease) : How to access health information online - Detail Indication: COPD with acute exacerbation (Renamed from Acute exacerbation of chronic obstructive airways disease) COPD with acute exacerbation (Renamed from Acute exacerbation of chronic obstructive airways disease) : Patient Instructions Indication: COPD with acute exacerbation (Renamed from Acute exacerbation of chronic obstructive airways disease) COPD with acute exacerbation (Renamed from Acute exacerbation of chronic obstructive airways disease) : How to access health information online Indication: COPD with acute exacerbation (Renamed from Acute exacerbation of chronic obstructive airways disease) COPD with acute exacerbation (Renamed from Acute exacerbation of chronic obstructive airways disease) : How to access health information online - Detail Indication: COPD with acute exacerbation (Renamed from Acute exacerbation of chronic obstructive airways disease) COPD with acute exacerbation (Renamed from Acute exacerbation of chronic obstructive airways disease) : Patient Instructions Indication: COPD with acute exacerbation (Renamed from Acute exacerbation of chronic obstructive airways disease) Other hyperlipidemia : How to access health information online Indication: Other hyperlipidemia Other hyperlipidemia : How to access health information online - Detail Indication: Other hyperlipidemia Other hyperlipidemia : Patient Instructions Indication: Other hyperlipidemia Other hyperlipidemia : Patient Instructions Indication: Other hyperlipidemia Chronic obstructive pulmonary disease : Patient Instructions Indication: Chronic obstructive pulmonary disease Chronic obstructive pulmonary disease : Patient Instructions Indication: Chronic obstructive pulmonary disease Vitamin D deficiency, unspecified : How to access health information online Indication: Vitamin D deficiency, unspecified Vitamin D deficiency, unspecified : How to access health information online - Detail Indication: Vitamin D deficiency, unspecified Chronic obstructive pulmonary disease : Patient Instructions Indication: Chronic obstructive pulmonary disease Chronic obstructive pulmonary disease : Patient Instructions Indication: Chronic obstructive pulmonary disease Cough : Patient Instructions Indication: Cough Chronic obstructive pulmonary disease : Patient Instructions Indication: Chronic obstructive pulmonary disease Bronchitis, acute : Patient Instructions Indication: Bronchitis, acute Osteopenia of multiple sites : Patient Instructions Indication: Osteopenia of multiple sites Advance Directives Name Dates Details Living Will - Effective on 07/11/2018. Expiration Effective: 11-Jul-2018 date unspecified. Scanned Document is available upon request. Encounters Office Visit On: 20-Aug-2018 8:14 Encounter Reason: Follow up tests - Date: (07/27 ct AND CALCIUM SCORE). Note for Discuss procedure results: does get chest pain- see ros- does get funes with exertion but this am really coldEncounter Diagnosis: BMI 24.0-24.9, adult, Former smoker, End: 20-Aug-2018 10:48 Chest pain, Coronary artery disease, non-occlusive, Abnormal CT of liver [facility] Phone Encounter On: 04-Jul-2018 16:46 Encounter Diagnosis: Other hyperlipidemia End: 04-Jul-2018 16:49 [facility] Review On: 02-Jul-2018 13:26 Encounter Reason: Physical female exam - General health: feels well with minor complaints, has good energy level and is sleeping well (sometimes). The patient's appetite is normal. Nutrition: normal/adequate. Exercises 0 (not a whole lot of time with working) days per week. Sleeps on average 7 (7-8) hours per night. Normal bowel and bladder habits. Safety measures include appropriate use of safety belts and home smoke detectors. There are no current emotional problems. Note for Physical exam: [facility]- weight really down and she is trying - she feels great- bp is good- breathing is better with lower weight- she wants to hold on scheduling colonosocpy and bone density although is due in jul- did have skin check this year- no changes in familyhxEncounter Diagnosis: BMI 24.0-24.9, adult, Former smoker, Influenza vaccination declined (Renamed from Refused influenza vaccine), [facility] EXAM, Paresthesia, Need for prophylactic vaccination and inoculation against influenza (Renamed from Need for immunization against influenza), Thyroid Nodule, Gastroesophageal reflux disease without esophagitis, Elevated hemoglobin A1c, Other hyperlipidemia [facility] Office Visit On: 30-Mar-2018 9:41 Encounter Reason: Follow up for chronic medical issues - The patient feels well with no complaints, has good energy level and is sleeping well. Patient has been compliant with instructions. Current medication use: no nenita End: 30-Mar-2018 10:46 e effects, compliant with dosing regimen and considered effective by patient. Patient sleeps 7 hours per night. Impact of disease: emotional impact-mild. Nutrition: balanced diet and supplemental vitami ns. The medical issues the patient is following up for include blood sugar issues, COPD, gastric reflux, high cholesterol, osteoporosis/osteopenia and other (allergic rhinitis, vitamin d def., NILDA, tha ry loss, hx PE). 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 - feels well breathign is good a nd bp is good- sometimes feels memory good somedays not- she feels in genral pretty good- labs great - her back and leg doing ok wearing support hose- no gerd- hasnt done mammo or thyroid us she was [facility] Diagnosis: BMI 25.0-25.9,adult, Former smoker, Chronic obstructive pulmonary disease, Other hyperlipidemia, Encounter for screening mammogram for breast cancer (Renamed from Encounter for screening mammogram for malignant neoplasm of breast), Gastroesophageal reflux disease without esophagitis, Vitamin D deficiency, unspecified, Elevated hemoglobin A1c [facility] Office Visit On: 24-Nov-2017 9:28 Encounter Reason: Follow up for chronic medical issues - The patient feels well with no complaints, has good energy level and is sleeping well. Patient has been compliant with instructions. Current medication use: no nenita End: 24-Nov-2017 12:02 e effects and compliant with dosing regimen. Patient sleeps 7 hours per night. Nutrition: balanced diet, supplemental vitamins and low salt diet. The medical issues the patient is following up for inclu de All identified problems below, cardiac issues (tachy), COPD, gastric reflux, osteoporosis/osteopenia and other (PE, sob, anemia, vitamin d deficient, anxiety). Note for Follow up for chronic medical issues: bp is stable- and sugar is stable- she is feeling well, [ADDITIONAL REASON] Follow up tests - Date: (11/23 blood work). 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 The patient's appetite is normal. Nutrition: normal/adequate. Exercises 3 days per week. End: 06-Aug-2017 15:00 Sleeps on average 6 hours per night. Elimination problems include urinary incontinence (coughing or if holds bladder too long). Safety measures include appropriate use of safety belts and home smoke de tectors. There are no current emotional problems. Note for Physical exam: [facility]- weight down 5 more pounds and trying and bp is great- sleeping good feels more energy with cpap and d oesnt feel like needs sleep in day- breathing good no gerd- still managing ulnar tunnel - had massotherapy and helped - not ready to do anything yet- memory seems to not be issue - not gotten worse-- sh e had skin exam this year varicose veins getting bit worse wearing support hose did discuss seeing dr Knapp Diagnosis: Chronic obstructive pulmonary disease, Former smoker, BMI 26.0-26.9,adult, Influenza vaccination declined (Renamed from Refused influenza vaccine), [facility] physical, Elevated hemoglobin A1c, Other hyperlipidemia [facility] Office Visit On: 24-Mar-2017 7:13 Encounter Reason: Follow up for chronic medical issues - The patient feels well with minor complaints (my face - acme in without make up but not as bad as was but skin peeling and getting patches and saw Champ for skin c End: 24-Mar-2017 8:01 a check and she thought psoriasis and then said no and she decided could be drom the cpap but now it is in places the mask doesnt sit on my face. ??I have only used some product that Champ gave me.), maciel s decreased energy level and is sleeping well. Patient has been compliant with instructions. Current medication use: no side effects and compliant with dosing regimen. Patient sleeps 8 hours per night. Nutrition: balanced diet, supplemental vitamins and low salt diet. The medical issues the patient is following up for include All identified problems below, cardiac issues (tachy), COPD, gastric reflux, osteoporosis/osteopenia and other (PE, sob, anemia, vitamin d deficient, anxiety). Note for Follow up for chronic medical issues: her rash improving with cortaid=bp is good weight up 4 pounds trying to exercise- breathing good- she is using bipap and thinks its helping - no gerd- had eye exam good- her wrist better than was --cant wear brace- she seems to be doing better howeverEncounter Diagnosis: BMI 26.0-26.9,adult, Former smoker, Obstructive sleep apnea, adult, Other hyperlipidemia, Vitamin D deficiency, unspecified, Ulnar tunnel syndrome of right wrist, Elevated hemoglobin A1c, Thyroid Nodule, Dermatitis [facility] Office Visit On: 10-Mar-2017 11:37 Encounter Diagnosis: BMI 26.0-26.9,adult, Former smoker, Rash End: 10-Mar-2017 13:07 [facility] Office Visit On: 28-Dec-2016 9:04 Encounter Reason: Follow up acute care visit - The patient does not feel well, has decreased energy level and worsening. Patient has been compliant with instructions. Current medication use: no side effects and compliant End: 28-Dec-2016 14:41 with dosing regimen. Patient sleeps 8 hours per night. The medical issues the patient is following up for include All identified problems below and URI. Note for Follow up acute care visit: Pt finish ed her atb and steriods, felt better for about 3 days then the sx have been coming back. Cough, achy, lower back achy, sinus pressure and pain, nasal drainage and stuffiness. and low grade temp 99.9-sha allen - not sob - feels like this time more in head- using her inhaler- she is taking Zyrtec- Encounter Diagnosis: Former smoker, BMI 26.0-26.9,adult, Acute upper respiratory infection [facility] Office Visit On: 13-Dec-2016 8:32 Encounter Reason: Follow up for chronic medical issues - The patient feels well with minor complaints (cold x2 weeks), has decreased energy level and is sleeping well. Patient has been compliant with instructions. Curren End: 13-Dec-2016 9:44 t medication use: no side effects and compliant with dosing regimen. Patient sleeps 7 hours per night. Nutrition: balanced diet, supplemental vitamins and low salt diet. The medical issues the patient i s following up for include All identified problems below, cardiac issues (tachy), gastric reflux, osteoporosis/osteopenia and other (PE, sob, anemia, vitamin d deficient, anxiety). Note for Follow up f or chronic medical issues: saw Tomer- he gave her brace - to try she having hard time wearing it so she has followup- her sugar better but and chol improved bp is good no gerd- and she is working on diet hasnt been able to exercie recently due to cold sx- using bipap and thinks it has helped, [ADDITIONAL REASON] Follow up, Laboratory Test Results - Date: (12/09/16). , [ADDITIONAL REASON] Cold Symptoms - Symptoms include nasal congestion, runny nose, scratchy throat, hoarseness, productive cough, facial pressure and facial pain, while symptoms do not include postnasa l drainage, sore throat or headache. Onset was sudden 2 week(s) ago. Onset followed exposure at home to someone with upper respiratory symptoms. The symptoms occur constantly. The patient describes this as improving. Associated symptoms include wheezing, shortness of breath, fatigue, nausea, diarrhea and fever, while associated symptoms do not include ear pain or vomiting. Current treatment includes n on-prescription cold medication, oral decongestants and antihistamines. Note for Cold symptoms: feels like had temp didnt take - short of breath cant move to fast-bnot as bad as was last week and diarrhea gone Encounter Diagnosis: BMI 26.0-26.9,adult, Former smoker, Vitamin D deficiency, unspecified, Elevated hemoglobin A1c, Thyroid Nodule, Encounter for screening mammogram for breast cancer (Renamed from Encounter for screening mammogram for malignant neoplasm of breast), Ulnar tunnel syndrome of right wrist, Other hyperlipidemia, Obstructive sleep apnea, adult, COPD with acute exacerbation (Renamed from Acute exacerbation of chronic obstructive airways disease) [facility] Office Visit On: 07-Oct-2016 10:55 Encounter Reason: Follow up tests - Diagnostic tests include NCS/EMG. Date: (09/21). Note for Discuss procedure results: weight down 11 pounds and she started walking and eating better- she feels better with weight loss End: 09-Oct-2016 18:06 her joints feel better with changing diet and less sugar- didnt do mri of brain- she doesnt wish to at this point- Encounter Diagnosis: Former smoker, BMI 26.0- 26.9,adult, Ulnar tunnel syndrome of right wrist, Arthralgia, unspecified joint, Elevated hemoglobin A1c, Osteopenia of multiple sites, Vitamin D deficiency, unspecified, Other hyperlipidemia [facility] Office Visit On: 19-Aug-2016 7:13 Encounter Reason: Physical female exam - General health: feels well with no complaints, has good energy level and is sleeping well. The patient's appetite is normal. Nutrition: normal/adequate. Exercises 3 days per week. End: 19-Aug-2016 14:00 Sleeps on average 6 hours per night. Elimination problems include urinary incontinence (coughing or if holds bladder too long). Safety measures include appropriate use of safety belts and home smoke de tectors. There are no current emotional problems. Note for Physical exam: [facility]- bp is good weight down 3 pounds - her breathing has been pretty good - admits not doing spiriva daily - says irritates her throat - needs new bipap mask needs rx is using- did go to [facility] for followup- does help her sleep-getting her skin cancer checks routinely and no routine gerd- she getting progress long issues with numbness in hands hx of median neuropathy and ulnar neuropathyEncounter Diagnosis: [facility], Former smoker, BMI 27.0-27.9,adult, Need for prophylactic vaccination and inoculation against influenza (Renamed from Need for immunization against influenza), Vitamin D deficiency, unspecified, Osteopenia, Postmenopausal (Renamed from Postmenopausal status), Pain in unspecified joint (Renamed from Joint pain), Paresthesia, Elevated hemoglobin A1c, Prolonged QT interval, Memory loss [facility] Office Visit On: 06-Jul-2016 9:41 Encounter Reason: Injections - The medication the patient is here to receive is pneumovax IM.Encounter Diagnosis: Pneumococcal vaccination given End: 06-Jul-2016 10:16 [facility] Office Visit On: 04-Sep-2015 8:06 Encounter Reason: Follow up for chronic medical issues - The patient feels well with minor complaints (talk about spiriva), has decreased energy level (cause currently on atb for uri) and is sleeping poorly (if uses theb End: 06-Sep-2015 14:32 ipap). Patient has been compliant with instructions. Current medication use: no side effects and compliant with dosing regimen. Patient sleeps 7 hours per night. Nutrition: balanced diet, supplemental v itamins and low salt diet. The medical issues the patient is following up for include All identified problems below, cardiac issues (tachy), gastric reflux, osteoporosis/osteopenia and other (PE, sob, a nemia, vitamin d deficient, anxiety). Note for Follow up for chronic medical issues: she is getting some bettter- from copd exac - had dry cough from spiriva- and now using symbicort- bpis good- she h as appt with tomer today- ?she couldnt go before didnt have insurance- had skin check last week, [ADDITIONAL REASON] Follow up, Laboratory Test Results - Date:. Encounter Diagnosis: COPD with acute exacerbation (Renamed from Acute exacerbation of chronic obstructive airways disease), Vitamin D deficiency, unspecified, Thyroid Nodule, Other hyperlipidemia, Gastroesophageal reflux disease without esophagitis, Encounter for screening mammogram for breast cancer (Renamed from Encounter for screening mammogram for malignant neoplasm of breast), Hypoxia [facility] Office Visit On: 28-Aug-2015 8:29 Encounter Reason: Cold Symptoms - Symptoms include nasal congestion, postnasal drainage, scratchy throat, productive cough, facial pressure and headache. Onset was 1 week(s) ago. Associated symptoms include ear pain and End: 28-Aug-2015 9:42 fatigue, while associated symptoms do not include nausea or vomiting. Current treatment includes non-prescription cold medication, oral decongestants and antihistamines. Note for Cold symptoms: felt better then worsen again.bring up clear mucous. Encounter Diagnosis: Chronic obstructive pulmonary disease, COPD with acute exacerbation (Renamed from Acute exacerbation of chronic obstructive airways disease) [facility] Office Visit On: 28-Apr-2015 8:04 Encounter Reason: Follow up for chronic medical issues - The patient feels well with minor complaints (left itchy ear inside and down into glands, hasnt taken her allergy meds for several days so figures its that. Sleepi End: 28-Apr-2015 9:58 ng is an issue yet. If she uses the bipap machine she has a hard time sleeping.), has decreased energy level and is sleeping poorly (if uses thebipap). Patient has been compliant with instructions. Curr ent medication use: no side effects and compliant with dosing regimen. Patient sleeps 7 hours per night. Nutrition: balanced diet, supplemental vitamins and low salt diet. The medical issues the patient is following up for include All identified problems below, cardiac issues (tachy), gastric reflux, osteoporosis/osteopenia and other (PE, sob, anemia, vitamin d deficient, anxiety). Note for Follow up for chronic medical issues: she hasnt seen toorok yet encourge her to get followup skin chevk she having trouble tolerating bipap and so supposed to see neuro to addresss this- this last overnight pul se ox was without o2 or bipap was wearing strap to try to realign jaw that didnt work- she has appt next week- weight down 6 pounds and trying - walking more - bp is good- not using spiriva routinely sa id she didnt feel like needed it but we discused needs daily and prob needs add second inhaler- no routine gerd, [ADDITIONAL REASON] Follow up, Laboratory Test Results - Date: (04/20/15). Encounter Diagnosis: Hyperlipidemia (272.4), COPD (496.), Need for prophylactic vaccination and inoculation against influenza (Renamed from Need for immunization against influenza), Gerd (530.81), VITAMIN D DEFICIENCY, NOS (268.9), Obstructive Sleep Apnea (327.23), Soft tissue mass, Encounter for screening mammogram for breast cancer (Renamed from Encounter for screening mammogram for malignant neoplasm of breast) [facility] Office Visit On: 02-Mar-2015 8:01 Encounter Diagnosis: COPD (496.) End: 02-Mar-2015 8:45 [facility] Office Visit On: 26-Dec-2014 8:30 Encounter Reason: Follow up for chronic medical issues - The patient feels well with minor complaints (cant get used to the c-pap machine so not sleeping well yet which makes her tired), has decreased energy level and is End: 26-Dec-2014 9:33 sleeping poorly. Patient has been compliant with instructions. Current medication use: no side effects and compliant with dosing regimen. Patient sleeps 4 hours per night. Nutrition: balanced diet, sup plemental vitamins and low salt diet. The medical issues the patient is following up for include All identified problems below, cardiac issues (tachy), gastric reflux, osteoporosis/osteopenia and other (PE, sob, anemia, vitamin d deficient, anxiety). Note for Follow up for chronic medical issues: bp is good - struggling with sleepping with bipap has followup with stem roller operator in december - saw barry and he didn t feel she needed bx again- she increasing sugar- we discussed diet and ex, [ADDITIONAL REASON] Follow up tests - Diagnostic tests include other (labs). Date: (12/18/14). Encounter Diagnosis: Hyperlipidemia (272.4), Obstructive Sleep Apnea (327.23) , Observed sleep apnea, Snoring, Carpel tunnel syndrome (354.0), Thyroid Nodule, COPD (496.), Osteopenia, VITAMIN D DEFICIENCY, NOS (268.9), Gerd (530.81), Malignant Melanoma Of Skin [facility] Phone Encounter On: 22-Sep-2014 16:33 Encounter Diagnosis: Observed sleep apnea, Snoring End: 22-Sep-2014 16:38 [facility] Phone Encounter On: 02-Sep-2014 15:15 Encounter Diagnosis: Hypoxia End: 02-Sep-2014 15:16 [facility] Office Visit On: 29-Aug-2014 8:25 Encounter Reason: Follow up for chronic medical issues - The patient feels well with minor complaints (hands are numb ), has good energy level and is sleeping well. Patient has been compliant with instructions. Current m End: 29-Aug-2014 9:24 edication use: no side effects and compliant with dosing regimen. Patient sleeps 7 hours per night. Nutrition: balanced diet, supplemental vitamins and low salt diet. The medical issues the patient is f ollowing up for include All identified problems below, cardiac issues (tachy), gastric reflux, osteoporosis/osteopenia and other (PE, sob, anemia, vitamin d deficient, anxiety). Note for Follow up for chronic medical issues: with o2 feeling more refreshed in am - not feeling less sob in day- feels pretty good- she saw Tomer for carpal tunnel 2012 and sx worse now numb all time- he made brace for her at night- wakes up ok or if doesnt use hand ok - but as sson as using hands getting sx - meloxicam helps, [ADDITIONAL REASON] Follow up tests - Diagnostic tests include other (labs). Date: (05/23/14). Encounter Diagnosis: COPD (496.), LOW BACK PAIN WITH RADICULOPATHY (724.4), Carpel tunnel syndrome (354.0), Thyroid Nodule, VITAMIN D DEFICIENCY, NOS (268.9), Osteopenia, Hyperlipidemia (272.4) [facility] Office Visit On: 30-May-2014 14:47 Encounter Reason: Nurse procedure visit - The symptoms have been associated with other (overnight pulse ox).Encounter Diagnosis: COPD (496.), Prophylactic vaccination against Streptococcus pneumoniae (V03.82) End: 30-May-2014 15:07 [facility] Office Visit On: 23-May-2014 9:21 Encounter Reason: Follow up tests - Diagnostic tests include other (bone density) and overnight pulse ox. Date: (05/22/14). Current symptoms include other (insomnia). Note for Discuss procedure results: Also a follow u End: 25-May-2014 21:59 p on left hip pain with radiculopathy. Pt finished therapy and pain has resolved pretty much.- she is going to keep up on home exercise- she started on home o2- and did make her feel better- not waking up with headaches, [ADDITIONAL REASON] Insomnia - Symptoms include difficulty falling asleep and difficulty staying asleep, while symptoms do not include daytime sleepiness. Onset was gradual month(s) ago. The symptoms o ccur 3 time(s) a week. The insomnia has been increasing. Associated symptoms do not include snoring, restless legs, depression or chronic pain. Note for Insomnia: thinks happening becuase not exercing routinely due to variety issues so working on that Encounter Diagnosis: COPD (496.), NEED FOR PROPHYLACTIC VACCINATION AND INOCULATION AGAINST INFLUENZA (V04.81), LOW BACK PAIN WITH RADICULOPATHY (724.4), Hypoxia, Sleep Disorder (Renamed from Disordered sleep), VITAMIN D DEFICIENCY, NOS (268.9) [facility] Visit On: 11-Apr-2014 8:39 Encounter Reason: Follow up tests - Diagnostic tests include overnight pulse ox. Date: (04/10/14). Note for Discuss procedure results: she was diagnosd with sleep apnea in past but for the life of her cant wear cpap= wa End: 14-Apr-2014 21:50 dre up with mild headache and more fatigue in am- nt sob in day- and not using spiriva so encoruage her to do that, [ADDITIONAL REASON] Leg pain - Note for Leg pain: several months- sleft leg radiating al the way d own- no fall- little back pain no weak or numb- worse with laying sitting in fcar better with walking Encounter Diagnosis: COPD (496.), LOW BACK PAIN WITH RADICULOPATHY (724.4), Hypoxia, Hyperlipidemia (272.4), VITAMIN D DEFICIENCY, NOS (268.9), screening [facility] Visit On: 07-Apr-2014 14:11 Encounter Reason: Nurse procedure visit - Reason for visit: overnight pulse oximetry.Encounter Diagnosis: COPD (496.) End: 07-Apr-2014 14:38 [facility] Visit On: 20-Mar-2014 7:46 Encounter Reason: Nurse procedure visit - Reason for visit: six minute walk test.Encounter Diagnosis: COPD (496.) End: 20-Mar-2014 18:45 [facility] Visit On: 12-Aug-2013 15:50 Encounter Reason: Follow up tests - Date: (06/2013 thyroid US and blood work in 04/2013)., [ADDITIONAL REASON] Follow up for chronic medical issues - The patient feels well with no complaints End: 12-Aug-2013 22:06 , has good energy level and is sleeping well. Patient has been compliant with instructions. Current medication use: no side effects and compliant with dosing regimen. Patient sleeps 7 hours per night. N utrition: balanced diet, supplemental vitamins and low salt diet. The medical issues the patient is following up for include All identified problems below, cardiac issues (tachy), gastric reflux, osteop orosis/osteopenia and other (PE, sob, anemia, vitamin d deficient, anxiety). Note for Follow up for chronic medical issues: feeling good- bp up a little Encounter Diagnosis: Thyroid Nodule, Gerd (530.81), Pulmonary embolism (Renamed from PE (pulmonary embolism)), Osteopenia, VITAMIN D DEFICIENCY, NOS (268.9), COPD (496.), screening, Hyperlipidemia (272.4) [facility] Office Visit On: 03-Jun-2013 14:37 Encounter Reason: Cough - The cough is characterized as dry. the color of the sputum is purulent.Encounter Diagnosis: Cough, COPD WITH (ACUTE) EXACERBATION (491.21) End: 03-Jun-2013 14:56 [facility] Visit On: 06-May-2013 15:42 Encounter Reason: Follow up for chronic medical issues - The patient feels well with no complaints, has good energy level and is sleeping well. Patient has been compliant with instructions. Current medication use: no nenita End: 06-May-2013 19:55 e effects and compliant with dosing regimen. Patient sleeps 7 hours per night. Nutrition: balanced diet, supplemental vitamins and low salt diet. The medical issues the patient is following up for inclu de All identified problems below, cardiac issues (tachy), gastric reflux, osteoporosis/osteopenia and other (PE, sob, anemia, vitamin d deficient, anxiety). Note for Follow up for chronic medical issue s: No routine labs done for todays visit. bp is good and weight coming down and trying- feeling well- no gerd Encounter Diagnosis: Need for prophylactic vaccination and inoculation against influenza (V04.81), COPD (496.), Knee pain (719.46), Lung nodule (518.89), Thyroid Nodule (241.0), Carpel tunnel syndrome (354.0), Osteopenia (733.90), VITAMIN D DEFICIENCY, NOS (268.9), Gerd (530.81), Malignant Melanoma Of Skin, Pulmonary embolism (415.19), Coronary artery disease (414.00), screening [facility] Visit On: 20-Aug-2012 10:58 Encounter Reason: Cold Symptoms - The last clinic visit was 2 week(s) ago. No changes in management were made at the last visit. Symptoms include sneezing, runny nose, hoarseness, productive cough, facial pressure and fa End: 20-Aug-2012 11:35 cial pain. The patient describes this as moderate in severity and worsening. Symptoms are exacerbated by activity and cold air. Associated symptoms include plugged ear(s), shortness of breath, fatigue a nd weakness. Current treatment includes rest. 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 The patient was previously evaluated in this clinic 2 week(s) ago. Previous presentati on included sneezing, runny nose, hoarseness, dry cough and productive cough. Note for Cold symptoms: cough productive of yellow sputum- no fever-and blowing out of nose - more short of breath not claudia e if wheeezing- had flu couple weeks ago- felt better then got worseEncounter Diagnosis: Bronchitis,Acute (466.0) [facility] Visit On: 06-Aug-2012 9:29 Encounter Reason: Flu Like Symptoms - Symptoms include fever, chills, body aches, runny nose and productive cough. Onset was sudden 3 day(s) ago. The symptoms occur constantly. The patient describes this as moderate in s End: 06-Aug-2012 9:58 everity and worsening. Associated symptoms include wheezing, shortness of breath, fatigue, fever and chills, while associated symptoms do not include ear pain.Encounter Diagnosis: Fever and chills (780.60), Influenza B (487.1), Cough (786.2) [facility] Visit On: 30-May-2012 15:39 Encounter Reason: Follow up tests - Diagnostic tests include NCS/EMG, other (labs) and treadmill exercise stress test (03/21/12). Date: (03/14/12). Current symptoms include other (right wrist pain continues).Encounter Diagnosis: End: 30-May-2012 16:18 Need for prophylactic vaccination and inoculation against influenza (V04.81), Osteopenia (733.90), Carpel tunnel syndrome (354.0), Ulnar tunnel syndrome (354.2), Trigger thumb of right hand (727.03), Lesion-Unknown behavior (238.2), screening [facility] Visit On: 14-Mar-2012 9:39 Encounter Reason: Follow up tests - Diagnostic tests include CT scan (chest) and other (bone dexa and labs). Date: (02/07/12). Current symptoms include other (right wrist pain). Note for Follow up tests: she doent get c End: 19-Mar-2012 9:33 hest pain does get intermittent sob- she feels potentially lung not heart but did have atherosclerosis of heart arteries on ct of chest , [ADDITIONAL REASON] Wrist Pain - Symptoms include wrist pain, swelling and decreased range of motion , while symptoms do not include redness, warmth or stiffness. Symptoms are located in the right wrist. The pain radiates to the right forearm. The patient describes the pain as sharp and aching. Onset w as sudden 10 month(s) ago. The symptoms occur constantly. The patient describes symptoms as worsening. Symptoms are exacerbated by motion at the wrist, use of the hand and direct pressure. Associated sy mptoms include numbness in the hand and pain in the hand, while associated symptoms do not include weakness in the hand, fever, chills or localized rash. The patient is not currently being treated for t his problem. Note for Wrist Pain: had fell on last may- went into er next day and wasnt broke- now gotten worse- hands get numb- all fingers - maverick after mowing lawn- weaker- driving makes it go to sleep - right worse than left- not waking up at night- Encounter Diagnosis: COPD (496.), Lung nodule (518.89), Coronary artery disease (414.00), Osteopenia (733.90), Carpel tunnel syndrome (354.0) [facility] Annotation/Addendum On: 17-Nov-2011 14:27 Encounter Diagnosis: COPD (496.) End: 17-Nov-2011 14:29 [facility] Office Visit On: 12-Sep-2011 10:48 Encounter Reason: Follow up tests - Diagnostic tests include CT scan (chest) and other (bone dexa and labs). Date: (08/30/11). Follow up visit with no current symptoms. Note for Follow up tests: weight down 5 pounds but End: 12-Sep-2011 11:50 doing ok now- 2 mos ago- her breathing has been pretty good- and bp is good - her bone density not improving but has been off calcium and vit d so will get back on Encounter Diagnosis: Lung nodule (518.89), VITAMIN D DEFICIENCY, NOS (268.9), Gerd (530.81), COPD (496.), Osteopenia (733.90), mthfr- check homocysteine then decide treatment [facility] Office Visit On: 27-Jun-2011 8:52 Encounter Reason: Follow up for chronic medical issues - The patient feels well with minor complaints (wants to talk about going off the coumadin), has good energy level and is sleeping well. Patient has been compliant w End: 27-Jun-2011 9:21 ith instructions. Current medication use: no side effects and compliant with dosing regimen. Patient sleeps 7 hours per night. Nutrition: balanced diet, supplemental vitamins and low salt diet. The [facility] issues the patient is following up for include All identified problems below, cardiac issues (tachy), gastric reflux, osteoporosis/osteopenia and other (PE, sob, anemia, vitamin d deficient, anxiety ). Note for Follow up for chronic medical issues: her breathing- has been stable but recently has a cold- her bp is good- no gerdEncounter Diagnosis: Gerd (530.81), Osteopenia (733.90), Pulmonary embolism (415.19), VITAMIN D DEFICIENCY, NOS (268.9) , Lung nodule (518.89), Malignant Melanoma Of Skin, screening, RHINITIS, ALLERGIC NEC (477.8) [facility] Lab Order On: 10-Jun-2011 11:01 Encounter Diagnosis: Pulmonary embolism (415.19) End: 10-Jun-2011 11:02 [facility] Lab Order On: 23-May-2011 10:25 Encounter Diagnosis: Pulmonary embolism (415.19) End: 23-May-2011 10:29 [facility] Phone Encounter On: 18-May-2011 11:56 [facility] End: 18-May-2011 11:57 Erroneous Entry On: 17-May-2011 12:20 Encounter Diagnosis: Pulmonary embolism (415.19) End: 17-May-2011 12:21 [facility] Erroneous Entry On: 11-May-2011 10:38 Encounter Diagnosis: Pulmonary embolism (415.19) End: 11-May-2011 10:38 [facility] Office Visit On: 05-May-2011 13:01 Encounter Reason: Injections - The medication the patient is here to receive is other (flu).Encounter Diagnosis: Need for prophylactic vaccination and inoculation against influenza (V04.81) End: 05-May-2011 13:38 [facility] Erroneous Entry On: 27-Apr-2011 13:01 Encounter Diagnosis: Pulmonary embolism (415.19) End: 27-Apr-2011 13:01 [facility] Erroneous Entry On: 23-Mar-2011 14:13 Encounter Diagnosis: Pulmonary embolism (415.19) End: 23-Mar-2011 14:13 [facility] Erroneous Entry On: 11-Mar-2011 11:24 Encounter Diagnosis: Pulmonary embolism (415.19) End: 11-Mar-2011 11:24 [facility] Erroneous Entry On: 15-Feb-2011 14:47 Encounter Diagnosis: Pulmonary embolism (415.19) End: 15-Feb-2011 14:48 [facility] Erroneous Entry On: 31-Dec-2010 10:08 Encounter Diagnosis: Pulmonary embolism (415.19) End: 31-Dec-2010 10:09 [facility] Office Visit On: 15-Dec-2010 10:24 Encounter Reason: Cough - The onset of the cough has been sudden and has been occurring in a persistent pattern for 3 days. The course has been increasing. The cough is characterized as dry. The amount of sputum produced End: 15-Dec-2010 11:10 is scanty. The cough occurs all the time. The symptoms are aggravated by supine posture. The symptoms have been associated with headache, runny nose and sore throat (scratchy), while the symptoms have not been associated with fever or wheezing. Encounter Diagnosis: Cough (786.2), Wheezing (786.07), COPD WITH (ACUTE) EXACERBATION (491.21), RHINITIS, ALLERGIC NEC (477.8) [facility] Erroneous Entry On: 07-Dec-2010 10:42 Encounter Diagnosis: Pulmonary embolism (415.19) End: 07-Dec-2010 10:43 [facility] Erroneous Entry On: 04-Nov-2010 11:55 Encounter Diagnosis: Pulmonary embolism (415.19) End: 04-Nov-2010 11:55 [facility] Phone Encounter On: 06-Sep-2010 11:56 [facility] End: 06-Sep-2010 11:57 Annotation/Addendum On: 06-Aug-2010 16:08 [facility] End: 06-Aug-2010 16:11 Phone Encounter On: 22-Jul-2010 15:03 [facility] End: 22-Jul-2010 15:06 Office Visit On: 05-Jul-2010 13:05 Encounter Reason: Follow up for chronic medical issues - The patient feels well with no complaints, has good energy level and is sleeping well (off and on). Patient has been compliant with instructions. Current medicatio End: 05-Jul-2010 13:50 n use: no side effects and compliant with dosing regimen. Patient sleeps 8 hours per night. Nutrition: balanced diet, supplemental vitamins and low salt diet. The medical issues the patient is following up for include All identified problems below, cardiac issues (tachy), gastric reflux, osteoporosis/osteopenia and other (PE, sob, anemia, vitamin d deficient, anxiety). Note for Follow up for chronic medical issues: we reviewed ct of chest and pfts- she has noticed with the copd some sob- - anemia gone- the blood clot almost gone- anxiety ok- colder air makes her breathing worse- no gerd- , [ADDITIONAL REASON] Follow up, Diagnostic Procedure Results - Diagnostic tests include CT scan (chest). Date: (05/31/10). , [ADDITIONAL REASON] Follow up, Laboratory Test Results - Date: (06/21/10). Encounter Diagnosis: VITAMIN D DEFICIENCY, NOS (268.9), Pulmonary embolism (415.19), COPD (496.), Anemia(285.9), Elevated LFT (790.6), Gerd (530.81), Lung nodule (518.89), Low back pain (Renamed from LBP (low back pain)), Malignant Melanoma Of Skin, Osteopenia (733.90) [facility] Phone Encounter On: 30-Jun-2010 11:46 [facility] End: 30-Jun-2010 11:48 Office Visit On: 25-Jun-2010 8:57 Encounter Diagnosis: Pulmonary embolism (415.19) End: 25-Jun-2010 8:59 [facility] Phone Encounter On: 23-Apr-2010 13:48 [facility] End: 23-Apr-2010 13:50 Phone Encounter On: 07-Apr-2010 11:40 [facility] End: 07-Apr-2010 11:41 Office Visit On: 26-Mar-2010 14:53 [facility] End: 28-Mar-2010 22:17 Phone Encounter On: 10-Mar-2010 11:37 [facility] End: 10-Mar-2010 11:40 Office Visit On: 09-Mar-2010 15:34 Encounter Reason: Bruising - The onset of the bruising has been acute and has been occurring in a persistent pattern for 1 days. The course has been increasing. The bruising is severe. The bruising is described as being End: 09-Mar-2010 15:55 located on the skin of right upper extremity. The bruising was precipitated by trauma (banged arm against bathtub while giving a puppy a bath on Monday.). The symptoms have been associated with use of anticoagulant, while the symptoms have not been associated with cardiac valve replacement ,bleeding ,epistaxis ,hemoptysis or use of aspirin. Note for Bruising: pt does have history of PE and is curr ently alternating 6 mg and 7 mg. Denies any coughing, shortness of breath, wheezing.Encounter Diagnosis: Lesion-Unknown behavior (238.2) [facility] Office Visit On: 01-Mar-2010 13:16 Encounter Reason: Follow up for chronic medical issues - The patient feels well with no complaints ,has good energy level and is sleeping well (off and on). Patient has been compliant with instructions. Current medicatio End: 01-Mar-2010 13:57 n use: no side effects and compliant with dosing regimen. Patient sleeps 7 hours per night. Nutrition: balanced diet ,supplemental vitamins and low salt diet. The medical issues the patient is following up for include All identified problems below ,cardiac issues (tachy) ,gastric reflux ,osteoporosis/osteopenia and other (PE, sob, anemia, vitamin d deficient, anxiety). Note for Follow up for chronic medical issues: bp is good- heart rate is breathing not overtly bothered by breathing at this pointEncounter Diagnosis: Pulmonary embolism (415.19), COPD (496.), Elevated LFT (790.6), Gerd (530.81), Anemia(285.9), VITAMIN D DEFICIENCY, NOS (268.9), SOB (786.05), Lymphadenopathy (Renamed from Adenopathy), Tachycardia (Renamed from Fast heart beat), Wheezing (786.07), screening, Lung nodule (518.89) [facility] Phone Encounter On: 18-Feb-2010 14:37 [facility] End: 18-Feb-2010 14:39 Phone Encounter On: 21-Jan-2010 12:19 [facility] End: 21-Jan-2010 12:20 Phone Encounter On: 01-Jan-2010 10:51 [facility] End: 01-Jan-2010 10:52 Historical Summary On: 04-Dec-2009 16:03 [facility] End: 04-Dec-2009 16:05 Office Visit On: 20-Nov-2009 13:25 [facility] End: 20-Nov-2009 14:05 Phone Encounter On: 13-Nov-2009 9:52 [facility] End: 13-Nov-2009 9:55 Historical Summary On: 23-Oct-2009 10:26 [facility] End: 23-Oct-2009 10:27 Phone Encounter On: 09-Oct-2009 15:58 [facility] End: 09-Oct-2009 16:01 Office Visit On: 07-Oct-2009 10:51 Encounter Reason: Follow up, Diagnostic Procedure Results - Diagnostic tests include other (pet scan). Date: (09/14/09). , [ADDITIONAL REASON] Follow up, Laboratory Test Results - Date: (09/14/09). Encounter Diagnosis: Pulmonary embolism (415.19), End: 08-Oct-2009 23:12 Tachycardia (785.0), Lymphadenopathy (785.6), Anemia(285.9), Elevated LFT (790.6), SOB (786.05) [facility] Phone Encounter On: 05-Oct-2009 13:25 [facility] End: 05-Oct-2009 13:26 Phone Encounter On: 29-Sep-2009 18:07 [facility] End: 29-Sep-2009 18:09 Office Visit On: 18-Sep-2009 12:24 [facility] End: 18-Sep-2009 12:26 Phone Encounter On: 10-Sep-2009 14:24 [facility] End: 10-Sep-2009 14:28 Office Visit On: 09-Sep-2009 14:46 Encounter Reason: Follow up, Laboratory Test Results - Lab results: abnormal CBC and other (also review CMP, TSH, LDH). Date: (09/02/09). Current symptoms/reason for visit include/s Follow up visit with no current symptoms End: 10-Sep-2009 7:53 . Note for Follow up, Laboratory Test Results: she is feeling better - heart rate better no chest pain or sobEncounter Diagnosis: Pulmonary embolism (415.19), Malignant Melanoma Of Skin, Lymphadenopathy (785.6) [facility] Phone Encounter On: 03-Sep-2009 15:37 [facility] End: 03-Sep-2009 15:38 Office Visit On: 02-Sep-2009 13:16 Encounter Reason: Follow up hospital - Reason for ER visit: note: (PE). The patient feels well with minor complaints (No cp or sob, feeling better, still fatigue.) ,has decreased energy level and is sleeping well. Patien End: 03-Sep-2009 8:59 t has been compliant with instructions. Current medication use: no side effects and compliant with dosing regimen. Patient sleeps 8 hours per night. Hospital procedures performed were other (ct chest, l abs). Note for Follow up hospital: she went to the hospital- because of high heart rate- she feels washed out- heart rate still high but fairly anemic- and is supposed to be taking iron- only taking o nce a day- but take twice a day- no chest pain or sob-- she felt tired before in the hospital-- taking tylenol and was taking ultram- taking 500 mg every 4-6 hours- no blood in stool-Encounter Diagnosis: Pulmonary embolism (415.19), Lymphadenopathy (785.6), Low back pain (724.2), Elevated LFT (790.6), Anemia(285.9), Tachycardia (785.0) [facility] Office Visit On: 28-Aug-2009 13:12 [facility] End: 30-Aug-2009 15:44 Annotation/Addendum On: 28-Aug-2009 13:07 [facility] End: 28-Aug-2009 13:12 Historical Summary On: 27-Aug-2009 8:48 [facility] End: 27-Aug-2009 8:49 Phone Encounter On: 06-Aug-2009 14:33 [facility] End: 06-Aug-2009 14:35 Office Visit On: 04-Aug-2009 11:36 Encounter Reason: Cough - The onset of the cough has been sudden. The cough is characterized as productive of mucoid sputum. The amount of sputum produced is scanty. 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 The symp End: 04-Aug-2009 13:28 toms have been associated with headache (frontal) ,long history of smoking (20 years) and runny nose (clear), while the symptoms have not been associated with dysphagia ,dyspnea ,edema ,fever ,foreign b [place] aspiration ,hemoptysis ,hoarseness ,night sweats ,sore throat ,weight loss ,wheezing or heartburn. Encounter Diagnosis: BRONCHITIS, NOT SPECIFIED ACUTE OR CHRONIC (490.), Cough (786.2), Wheezing (786.07) [facility] Nurse Visit (Non-[place]) On: 11-May-2009 14:03 Encounter Reason: Injections - The medication the patient is here to receive is pneumovax IM and other (Influenza vaccine). Encounter Diagnosis: Need for prophylactic vaccination and inoculation against influenza (V04.81), End: 11-May-2009 14:05 Prophylactic vaccination against Streptococcus pneumoniae (V03.82) [facility] Office Visit On: 27-Apr-2009 12:00 Encounter Reason: Knee Pain - The onset of the knee pain has been sudden following no specific incident and has been occurring in a persistent pattern for 1 weeks. The course has been gradually worsening. The knee pain i End: 28-Apr-2009 7:11 s moderate to severe. The knee pain is characterized as a dull aching (some burning). The knee pain is described as being located in the entire knee (left). The knee pain is aggravated by physical activ ity. The knee pain is relieved by rest ,elevation of leg ,sitting and lying down. The symptoms have been associated with muscle swelling ,joint swelling ,medial pain ,lateral pain ,pain under patella ,p ainful ROM ,decreased ROM ,warmth ,burning sensation and difficulty going up and down stairs, while the symptoms have not been associated with fever ,chills or difficulty arising from chair. Note for K nee Pain: left knee arthroscopy 2004- for torn meniscus- Edwin- - had xray last jun and was told she needed knee replacement- has really been bothering her now- went to er on apr 18 - with the pain- and had xray - bad arthritis and doppler- - no clot- - had popliteal cyst- she knew of that - not new- not as swollen as was- not using the pain meds since mon- upset her stomach- not pain at night- did say isnt as bad as wrongEncounter Diagnosis: Knee pain (719.46) [facility] Erroneous Entry On: 19-Jan-2009 9:25 [facility] End: 19-Jan-2009 10:39 Office Visit On: 15-Oct-2008 9:42 Encounter Reason: Follow up for chronic medical issues - The patient feels well with minor complaints (some increased anxiety) ,has good energy level and is sleeping well. Patient has been compliant with instructions. End: 15-Oct-2008 10:22 rrent medication use: no side effects and compliant with dosing regimen. Patient sleeps 6 hours per night. Nutrition: balanced diet ,supplemental vitamins and low salt diet. The medical issues the patie nt is following up for include All identified problems below ,osteoporosis/osteopenia and other (vit d deficient, anxiety, hypersomnia). blood pressure range : (120's/70's) and weight :. Note for Follo w up for chronic medical issues: she never got emgand ncs done-- nerve sx didnt change but will get done-- she used to have panic attacks but hasnt had more thought she might but didnt- some stressors but doenst think she needs anything, [ADDITIONAL REASON] Follow up, Diagnostic Procedure Results - Diagnostic tests include other (bone dexa). Date: (08/19/08). , [ADDITIONAL REASON] Follow up, Laboratory Test Results - Date: (10/09/08). Encounter Diagnosis: vit d def, Osteopenia (733.90), Parasthesia (782.0), Malignant Melanoma Of Skin, Gerd (530.81) [facility] Historical Summary On: 15-Sep-2008 9:11 [facility] End: 15-Sep-2008 9:11 Historical Summary On: 18-Aug-2008 8:19 [facility] End: 18-Aug-2008 8:20 Office Visit On: 08-Jul-2008 14:49 Encounter Reason: Follow up, Laboratory Test Results - Date: (06/16/08). Note for Follow up, Laboratory Test Results: she actually thinks the paresthesias some better- but still feels at end of fingers and toes -- [facility] thumb region End: 08-Jul-2008 22:34 t hand and left foot aare worseEncounter Diagnosis: Knee pain (719.46), Osteopenia (733.90), vit d def, Parasthesia (782.0) [facility] Office Visit On: 09-Jun-2008 13:20 Encounter Reason: Well Women Exam - The patient feels well with no complaints ,has good energy level and is sleeping poorly. Pap smear: date of last pap: (01/03). Contraceptive history: The patient is not using any method End: 09-Jun-2008 21:14 of contraception at this time. Patient does not exercise. The patient's libido is decreased. The patient reports that she does not perform monthly breast self exam (handout given). Calcium intake inclu samm 1200 mg with Vit D daily supplement. The patient denies the use of oral contraceptives or hormone replacement therapy. Menstruation: Last menstrual period date: (years ago). Encounter Diagnosis: Well Woman Exam (V72.31) (Pap,Mammo,Routine Female) (Renamed from Well Woman V72.31 (p,m)), Osteopenia (733.90), Parasthesia (782.0), Knee pain (719.46) [facility] Office Visit On: 28-Jan-2008 9:07 Encounter Diagnosis: Need for prophylactic vaccination with tetanus toxoid alone (V03.7) End: 28-Jan-2008 10:42 [facility] Office Visit On: 13-Jun-2007 10:35 Encounter Diagnosis: PROLAPSE OF VAGINAL OSORIO, CYSTOCELE, MIDLINE (618.01) End: 14-Jun-2007 22:14 [facility] Office Visit On: 05-Jan-2007 14:03 [facility] End: 05-Jan-2007 14:04 Historical Summary On: 04-Jan-2007 12:04 [facility] End: 04-Jan-2007 12:12 [facility]Stacy MARVIN; [place] guarantor
--- OUTSIDE RECORDS SUMMARY | 2018-10-23 09:22 | XMS RPT_ITS | Continuity of Care Document ---
:1945 External Reference #:[id number] Author Organization [facility] Address [address] [place] [address] Phone Care Team Providers Name Role Phone Isabella Peacock DO Unavailable Tomer BRADLEY, Dr. 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) Comments: worsening and prolonged coughfollowing viral infection Status: Active Anxiety (F41.9, 300.00) Status: Active Arthralgia, unspecified joint (M25.50, 719.40) Comments: betteer with weight lost and eating less sugar Status: Active BMI 24.0-24.9, adult (Z68.24, V85.1) Status: Active Chronic obstructive pulmonary disease (J44.9, 496) Comments: sx stable Status: Active COPD with acute exacerbation (Renamed from Acute exacerbation of chronic obstructive airways disease) (J44.1, 491.21) Comments: add albuterol- she has machine Status: Active Coronary artery disease (I25.10, 414.00) Status: Active Deliveries (Parity) Comments: 4 Status: [...] days Quantity: 1 {Box} Refills: 3 Ordered:30-Mar-2018 DOChetana AFast DO, Isabella A Start : 30-Mar-2018 Active Metoprolol Tartrate 50 MG Oral Tablet 1 (one) Tablet 1 tab po @6pm night before scan, 1 tab po @7am day of scan for 0 days Quantity: 2 {Tablet} Refills: 0 Ordered:04-Jul-2018 Swati Bauer Start : 04-Jul-2018 Active Spiriva HandiHaler 18 MCG Inhalation Capsule 1 Capsule puff q am for 30 days Quantity: 1 {Capsule} Refills: 3 Ordered:26-Jun-2018 Fast DOChetana AFast DO, Isabella A Start : 26-Jun-2018 [...] : 15-Dec-2010 End : 27-Jun-2011 Inactive DRISDOL, 82023OXZD (Oral Capsule) 1 Capsule Weekly for 0 days Quantity: 4 {Capsule} Refills: 3 Ordered:27-Jun-2011 Merna Hinojosa Start : 05-Jul-2010 End : 27-Jun-2011 Inactive ERGOCALCIFEROL, 86090FAXA (Oral Capsule) 1 (one) Capsule twice a [...] #4 for 0 days Refills: 0 Ordered:15-Dec-2010 Karl MARIALuz Marina End : 15-Dec-2010 Inactive Meloxicam 7.5 MG Oral Tablet 1 (one) Tablet daily, prn for 30 days Quantity: 30 {Tablet} Refills: 3 Ordered:24-Mar-2017 Long CONSERVATION OR HERITAGE ARCHITECTNy Lira Start : 28-Jan-2015 End : 24-Mar-2017 Inactive [...] days Quantity: 10 {Capsule} Refills: 0 Ordered:06-Aug-2012 CiesRegine galeano CNP Start : 06-Aug-2012 End : 11-Aug-2012 [...] days Quantity: 1 {Each} Refills: 0 Ordered:13-Dec-2016 Merna Hinojosa Start : 28-Aug-2015 End : 13-Dec-2016 Discontinued TESSALON PERLES, 100MG (Oral Capsule) 1 Capsule tid prn for 0 days Quantity: 30 {Capsule} Refills: 0 Ordered:06-May-2013 Fast DO, Isabella AFast DO, Isabella A Start : 06-May-2013 End : 06-May-2013 Discontinued VITAMIN D (ERGOCALCIFEROL), 63035ELPB (Oral Capsule) 1 Capsule q week for 0 days Quantity: 12 {Capsule} Refills: 3 Ordered:06-May-2013 Fast DO, Isabella AFast DO, Isabella A Start : 06-May-2013 End : 06-May-2013 Discontinued VITAMIN D, 58128JDHL (Oral Capsule) 1 Weekly for 0 days Refills: 0 Ordered:07-Apr-2010 Mast Loyda MARTINEZ End : 07-Apr-2010 Discontinued Comments:This order discontinued per [employer]. WARFARIN SODIUM, 1MG (Oral Tablet) 1 (one) Tablet as directed for 30 days Quantity: 90 {Tablet} Refills: 3 Ordered:14-Mar-2012 BiggMerna kohli Start : 14-Mar-2012 End : 14-Mar-2012 Discontinued [...] has witnessed this multiple [facility] at [facility] sleep study to evaluate had [...] Completed vein stripping Completed Date Value Details 30-May-2018 SCREENING MAMM (CAD), BILAT Result: Comments: See Note; NOTES: [facility] Imaging Services [address] [place] [address] SCREENING MAMM (CAD), BILAT MR#: [id number] Acct: [id number] Name: KERI MARVIN Rep #: [id number] : 1945 F 72 From: Samuel Leal MD PCP: Isabella Peacock DO Status: REG CLI Study: SCREENING MAMM (CAD), BILAT Date of Exam: 05/30/18 Exam# [id number] Ordering Dr: Isabella Peacock DO MAMMOG UCHE [...] delay biopsy of a clinically suspicious abnormality. [id number] Electronically Signed: Samuel Leal MD at 9:52 EDT Tel [phone], Flirqic e support , CC: Isabella Peacock DO Passenger Barge Master: Signed 30-May-2018 Thyroid Result: Comments: See Note; NOTES: [facility] Imaging Services [address] [place] [address] Thyroid MR#: [id number] Acct: [id number] Name: KERI MARVIN Rep #: [id number] : [birth year] F 72 From: Timbo Phillips DO PCP: Isabella Peacock DO Status: REG CLI Study: Thyroid Date of Exam: 05/30/18 Exam# [id number] Ordering Dr: Isabella Peacock DO STUDY: THYROID [...] Service support , CC: Isabella Peacock DO Passenger Barge Master: Signed 27-Jan-2017 SCREENING MAMM (CAD), BILAT Result: Comments: See Note; NOTES: [facility] Imaging Services [address] [place] [address] Verdana 4d SCREENING MAMM (CAD), BILAT MR#: [id number] Acct: [id number] Name: KERI MARVIN Rep #: [id number] : 1945 F 71 From: Samuel Leal MD PCP: Isabella Peacock DO Status: REG CLI Study: SCREENING MAMM (CAD), BILAT Date of Exam: 01/27/17 Exam# [id number] Ordering Dr: Isabella Peacock DO MAMMOGRAPHY - [...] delay biopsy of a clinically suspicious abnormality. [id number] Electronically Signed: Samuel Leal MD at 10:52 ED T Tel [phone], Service support , CC: Isabella Peacock DO Passenger Barge Master: Signed 27-Jan-2017 Thyroid Result: Comments: See Note; NOTES: [facility] Imaging Services [address] [place] [address] Stefan 4d Thyroid MR#: [id number] Acct: [id number] Name: KERI MARVIN Rep #: [id number] D OB: 1945 F 71 From: Merna Solomon MD PCP: Isabella Peacock DO Status: REG CLI Study: Thyroid Date of Exam: 01/27/17 Exam# [id number] Ordering Dr: Isabella Peacock DO STUDY: THYROID [...] Merna Solomon MD at 0:00 EDT Tel [phone], Service support , Fax CC: Isabella Peacock DO Passenger Barge Master: Signed 21-Sep-2016 NCS and/or EMG Patient Result: Comments: See Note; NOTES: [facility] Pulmonary Services/Neurology [address] [place] [address] NCS and/or EMG Patient MR#: [id number] Acct: [id number] Name: KERI MARVIN Rep #: [id number] : 1945 71 From: Donte Daniels MD Referring Dr: Isabella Peacock DO Status: REG CLI Ordering Dr: Isabella Peacock DO Date: 09/20/16 Location: [facility] Sex: F C DATE OF SERVICE: 09/20/2016 [...] elbow. Donte mcgee MD T: NTS JOB: [id number] 09/21/16 1036 <Electronically signed by Donte Daniels MD> Date Donte Daniels MD CC: Isabella Peacock DO; Kerry Daniels MD Date Dictated: 09/20/16 1016 Date Transcribed: 09/20/16 1016 Passenger Barge Master: Signed 30-Aug-2016 Dexa Bone Density Study () Result: Comments: See Note; NOTES: [facility] Imaging Services [address] [place] [address] Verdana 4d Dexa Bone Density Study () MR#: [id number] Acct: [id number] Name: SCOUTDARYLKERI K Rep #: [id number] : 1945 F 71 From: Samuel Leal MD PCP: Isabella Peacock DO Status: [facility] CLI Study: Dexa Bone Density Study () Date of Exam: 08/30/16 Exam# [id number] Ordering Dr: Geni Peacock ra, DO STUDY: [...] 3. National Osteoporosis Foundation [email or web address]://www.nof.org Electronically Signed: Samuel Leal MD at 9:49 EST Tel [phone], Service support [phone], CC: Isabella Peacock DO Passenger Barge Master: Signed 18-Jan-2016 Bilat Scrn Digital AND CAD Result: Comments: See Note; NOTES: [facility] Imaging Services [address] [place] [address] Verdana 4d Bilat Scrn Digital AND CAD MR#: [id number] Acct: [id number] Name: KERI MARVIN Rep #: [id number] : 1945 F 70 From: Samuel Leal MD PCP: Isabella Peacock DO Status: REG CLI Study: Bilat Scrn Digital AND CAD Date of Exam: 01/18/16 Exam# [id number] Ordering Dr: Isabella Peacock DO MAMMOGRAPHY - [...] delay biopsy of a clinically suspicious abnormality. [id number] Electronically Signed: Samuel Leal MD at 12:34 EDT Tel [phone], Service support [phone], CC: Isabella Peacock DO Passenger Barge Master: Signed 18-Jan-2016 Thyroid Result: Comments: See Note; NOTES: [facility] Imaging Services [address] [place] [address] Verdana 4d Thyroid MR#: [id number] Acct: [id number] Name: KERI MARVIN Rep # : [id number] : 1945 F 70 From: Samuel Leal MD PCP: Isabella Peacock DO Status: REG CLI Study: Thyroid Date of Exam: 01/18/16 Exam# [id number] Ordering Dr: Isabella Peacock DO STUDY: THYROID [...] Samuel Leal MD at 13:18 EDT Tel [phone], Service support [phone], CC: Isabella Peacock DO Passenger Barge Master: Signed 10-Oct-2014 Sleep Study Report Result: Comments: See Note; NOTES: [facility] [address] [place] [address] Polysomnography with NCPAP MR#: [id number] Acct: [id number] Name: KERI MARVIN Rep #: [id number] : 1945 69 From: Donte Daniels MD PCP: Isabella Peacock DO Status: REG CLI Ordering Dr.: Isabella Peacock DO Date: 10/08/14 Sex: F C REFERRING PHYSICIAN: Dr. Peacock. SLEEP HIS TORY: This is a CPAP titration study performed on this 69-year-old female with a body mass index of 26.9 and an Titus Sleepiness Scale score of 14. History includes [...] The study was attended continuously by a setup technician. Monitored parameters included left and right [...] 11/7 and titrated. At a setting of /13, 19 minutes of REM sleep was recorded [...] MD Co-signature (if applicable) Date Signed -Aug-2014 Sleep Study Report Result: Comments: See Note; NOTES: [facility] [address] [place] [address] Polysomnography MR#: [id number] Acct: [id number] Name: KERI MARVIN Rep #: [id number] : 1945 69 From: Donte Daniels MD PCP: Isabella Peacock DO Status: REG CLI Ordering Dr.: Isabella Peacock DO Date: 09/22/14 Sex: F C REFERRING PHYSICIAN: Dr. Isabella Peacock. SLEEP HISTORY: This is a diagnostic polysomnogram performed on this 69-year-old female with a body mass index of 26.9 and an Titus Sleepiness Scale score of 14. There was [...] version). Please note that a reference to [facility] AHI in this re port is consistent with the current Hypopnea definition according to Medicare Criteria and an AASM AHI reference is consistent with the current Hypopnea definition according to the AASM criteria. AR OCEDURE: The study was attended continuously by a setup technician. Monitored parameters included left and right [...] Daniels MD Co-signature (if applicable) Date Signed 05-Sep-2014 Thyroid Result: Comments: See Note; NOTES: [facility] Imaging Services [address] [place] [address] Ultrasound Report MR#: [id number] Acct: [id number] Name: KERI MARVIN Rep #: [id number] : 1945 F 69 From: Samuel Leal MD PCP: Isabella Peacock DO Status: REG CLI Study: Thyroid Date of Exam: 09/05/14 Exam# [id number] Ordering Dr: Isabella Peacock DO STUDY: THYROID [...] Samuel Leal MD at 14:33 EST Tel [phone], Service support [phone], CC: Isabella Peacock DO Passenger Barge Master: Signed 22-May-2014 Dexa Bone Density Study (HP) Result: Comments: See Note; NOTES: [facility] Imaging Services [address] [place] [address] Bone Density Report MR#: [id number] Acct: [id number] Name: KERI MARVIN Rep #: [id number] : 1945 F 68 From: Samuel Leal MD PCP: Isabella Peacock DO Status: REG CLI Study: Dexa Bone Density Study (HP) Date of Exam: 05/22/14 Exam# [id number] Ordering Dr: Isabella Peacock DO STUDY: DUAL [...] Samuel Leal MD at 15:59 EDT Tel [phone], Service support [phone], CC: Isabella Peacock DO Passenger Barge Master: Signed 16-May-2014 PT Discharge Summary Result: Comments: See Note; NOTES: [facility] [place] [address] Fax REHABILITATION SERVICES DISCHARGE SUMMARY MR#: [id number] Acct: [id number] Name: KERI MARVIN Rep #: [id number] : 1945 68 From: Cyndy Damon Referring DrTerri: Isabella Peacock DO Status: DIS RCR Eval Date: Discharge D ate: 05/13/14 DATE OF SERVICE: 05/13/2014 This patient was referred to physical therapy by Dr. Isabella Peacock with a diagnosis of low back pain with radiculopathy. She has been seen in our clinic t nadiya a total of 10 visits. Her physical [...] little achy at times. Oswestry was 0%, V0089-IY , W1246-YA. She plans to follow up with Dr. Peacock on May 23, 2014. I am discharging her from formal physical therapy and she is agreeable to discharge. Cyndy Damon, PT T: NTS JOB: [id number] <Electronically signed by Cyndy Damon > 05/16/14 1034 CC: Signed 11-Apr-2014 L/S Spine Min 4 Views Result: Comments: See Note; NOTES: [facility] Imaging Services [address] [place] [address] Radiology Report MR#: [id number] Acct: [id number] Name: KERI MARVIN Rep #: [id number] : 1945 F 68 From: Denise Cardoza MD PCP: Isabella Peacock DO Status: REG CLI Study: L/S Spine Min 4 Views Date of Exam: 04/11/14 Exam# [id number] Ordering Dr: Isabella Peacock DO STUDY: X-RAY [...] Vivienne Cardoza MD at 11:36 EDT Tel [phone], Service support [phone], Fax CC: Isabella Peacock DO Passenger Barge Master: Signed 20-Mar-2014 Spirometry (56838) Result: 01-Jul-2013 Thyroid Result: Comments: See Note; NOTES: [facility] Imaging Services [address] [place] [address] Ultrasound Report MR#: [id number] Acct: [id number] Name: KEIR MARVIN Rep #: [id number] : 1945 F 68 From: Fredis Aguirre MD PCP: Isabella Peacock DO Status: REG CLI Study: Thyroid Date of Exam: 07/01/13 Exam# [id number] Ordering Dr: Isabella Peacock DO STUDY: THYROID [...] M.D. at 11:55 EST , Service support [phone], CC: Isabella Peacock DO Passenger Barge Master: Signed Immunization Name Dates Details Influenza (3 years and up) on: 11-May-2009 Comments: Lot #[id number]-left deltoidDose0.5mlgiven by Harpal Yung LPN Pneumococcal (2 years and up) on: 11-May-2009 Comments: Lot #[id number]-right deltoidDose0.5mlgiven by Harpal Yung LPN Tetanus on: 28-Jan-2008 Comments: Lot #:[id number] date:mount given:0.5mlRoute:IM Site given:left deltoidGiven by: SCOUT Merritt Family History Unknown Family Member Name Dates Details Brother 1 Comments: hx postpolio sx Status: Active Father Comments: at 77, had sleep apnea, [place], glaucoma Status: Active Mother Comments: Osteopenia, hearty [...] smoker Vital Signs Date Test Result Details :29 Temperature 98.1 f Comments: Method: Temporal [...] 0.00 cm Results Date Description Value Details 43-Idc-415217:47 CBC with auto diff Comments: PATIENT NOT FASTINGPERFORMED BY: PRANEETH [employer]Bluebill [employer] [facility] [id number] Information: NURSE DRAW (82044) Immature Grans (Abs) 0.0 {x10E3/uL} (Normal) Range: [...] 3.77-5.28 WBC 6.8 {x10E3/uL} (Normal) Range: 3.4-10.8 24-Hbv-298541:47 METABOLIC PANEL, COMPREHENSIVE Comments: PATIENT NOT FASTINGPERFORMED BY: PRANEETH PerBluerp [place] [id number]; fu 07-02-18 DF (45272) ALT (SGPT) 21 [iU]/L (Normal) Range: 0-32 [...] 8-27 Glucose 99 mg/dL (Normal) Range: 65-99 91-Nom-55945:38 LIPID PANEL (50412) Comments: PATIENT WAS FASTINGPERFORMED BY: PRANEETH [facility] Qsmmlk6907 [facility] [id number] LDL/HDL Ratio 1.4 {ratio} (Normal) Range: 0.0-3.2 Comments: LDL/HDL Ratio Men Women 1/2 Avg.Risk 1.0 1.5 Av g.Risk 3.6 3.2 2X Avg.Risk 6.2 5.0 3X Avg.Risk 8.0 6.1 LDL Cholesterol Calc 77 mg/dL (Normal) Range: 0-99 VLDL Cholesterol Christi 20 mg/dL (Normal) Range: 5-40 HDL Cholesterol 57 mg/dL (Normal) Triglycerides 102 mg/dL (Normal) Range: 0-149 Cholesterol, Total 154 mg/dL (Normal) Range: 100-199 :38 CBC with auto diff (01157) Comments: PATIENT WAS FASTINGPERFORMED BY: PerBlueCarrie Tingley HospitalAkudnf2743 [facility] [id number] Immature Grans (Abs) 0.0 {x10E3/uL} (Normal) Range: [...] PANEL, COMPREHENSIVE Comments: PATIENT WAS FASTINGPERFORMED BY: PerBlueCarrie Tingley HospitalGluiya6454 [facility] [id number] (69319) ALT (SGPT) 20 [iU]/L (Normal) Range: 0-32 [...] mg/dL (Normal) Range: 65-99 :38 HGB A1C (04974) Comments: PATIENT WAS FASTINGPERFORMED BY: PerBlueCarrie Tingley HospitalExksxp5080 [facility] [id number] Hemoglobin A1c 5.6 % (Normal) Range: 4.8-5.6 Comments: . Prediabetes: 5.7 - 6.4 Diabetes: >6.4 Glycemic control for adults with diabetes: <7.0 :38 TSH (88603) Comments: PATIENT WAS FASTINGPERFORMED BY: PerBlueSt. Mary's HospitalTuypjj6281 [facility] [id number] TSH 1.990 {uIU/mL} (Normal) Range: 0.450-4.500 :38 Vitamin D Hydroxy (48924) Comments: PATIENT WAS FASTINGPERFORMED BY: PictarineTrinity Health [facility]6370 [facility] [id number] Vitamin D, 25-Hydroxy 57.3 ng/mL (Normal) Range: 30.0-100.0 Comments: Vitamin D deficiency has been defined by the [place] ofMedicine and an Endocrine Society practice guideline as alevel of serum 25-OH vitamin D less than 20 ng/mL (1,2).The Endocrine Society went on to further define vitamin Dinsufficiency as a level between 21 and 29 ng/mL (2).1. IOM ([place] of Medicine). 2010. Dietary reference intakes for calcium and D. Fu [place]: The National Academies Press.2. Castillo MF, Yocasta SHABAZZ, Jerri MACIEL, et al. Evaluation, treatment, and prevention of vitamin D deficiency: an Endocrine Society clinical practice guideline. JCEM. 2010; 96(7):1911-30. 17-Uqk-14034:10 LIPID PANEL (84644) Comments: PATIENT WAS FASTINGPERFORMED BY: [employer] Wpfrkv2394 [facility] [id number] LDL/HDL Ratio 1.4 {ratio} (Normal) Range: 0.0-3.2 Comments: LDL/HDL Ratio Men Women 1/2 Avg.Risk 1.0 1.5 Av g.Risk 3.6 3.2 2X Avg.Risk 6.2 5.0 3X Avg.Risk 8.0 6.1 LDL Cholesterol Calc 86 mg/dL (Normal) Range: 0-99 VLDL Cholesterol Christi 14 mg/dL (Normal) Range: 5-40 HDL Cholesterol 63 mg/dL (Normal) Triglycerides 70 mg/dL (Normal) Range: 0-149 Cholesterol, Total 163 mg/dL (Normal) Range: 100-199 :10 CBC with auto diff (56464) Comments: PATIENT WAS FASTINGPERFORMED BY: [employer] Xmizfw9474 [facility] [id number] Immature Grans (Abs) 0.0 {x10E3/uL} (Normal) Range: [...] 3.77-5.28 WBC 6.0 {x10E3/uL} (Normal) Range: 3.4-10.8 :10 MICROALBUMIN: CREATININE RATIO Comments: PATIENT WAS FASTINGPERFORMED BY: PerBlue Prezto [facility] [id number] (40813) AND (74887) Alb/Creat Ratio 24.8 {mg/g_creat} (Normal) Range: 0.0-30.0 Albumin, Urine 29.2 ug/mL (Normal) Creatinine, Urine 117.6 mg/dL (Normal) :10 METABOLIC PANEL, COMPREHENSIVE Comments: PATIENT WAS FASTINGPERFORMED BY: PerBlueSt. Mary's HospitalNrbmdp0878 [facility] [id number] (69425) ALT (SGPT) 19 [iU]/L (Normal) Range: 0-32 [...] 8-27 Glucose 86 mg/dL (Normal) Range: 65-99 88-Air-76631:10 HGB A1C (99395) Comments: PATIENT WAS FASTINGPERFORMED BY: 51hejia.comSt. Mary's HospitalPxtvoj3414 [facility] [id number] Hemoglobin A1c 5.8 % (Abnormal) Range: 4.8-5.6 Comments: . Pre-diabetes: 5.7 - 6.4 Diabetes: >6.4 Glycemic control for adults with diabetes: <7.0 2-Sge-619203:25 CBC W/AUTO DIFF WBC Comments: PERFORMED BY: 51hejia.comSt. Mary's HospitalOzbagx22[address] [place] [address] [id number] Information: CLIENT DRAW (05295) Immature Grans (Abs) 0.0 {x10E3/uL} (Normal) Range: [...] 3.77-5.28 WBC 6.6 {x10E3/uL} (Normal) Range: 3.4-10.8 :12 TSH (THYROID STIMULATING Comments: PATIENT WAS FASTINGPERFORMED BY: LabCoSt. Mary's HospitalJqjrpb1725 [facility] [id number] HORMONE) (42826) TSH 1.550 {uIU/mL} (Normal) Range: 0.450-4.500 :12 METABOLIC PANEL, COMPREHENSIVE Comments: PATIENT WAS FASTINGPERFORMED BY: LabCoSt. Mary's HospitalFnlxqq8023 [facility] [id number] (76511) ALT (SGPT) 14 [iU]/L (Normal) Range: 0-32 [...] mg/dL (Normal) Range: 65-99 :12 HGB A1C (91640) Comments: PATIENT WAS FASTINGPERFORMED BY: [facility] GroupAdventHealth Hendersonville [id number] Hemoglobin A1c 5.8 % (Abnormal) Range: 4.8-5.6 Comments: . Pre-diabetes: 5.7 - 6.4 Diabetes: >6.4 Glycemic control for adults with diabetes: <7.0 :12 Vitamin D Hydroxy (94110) Comments: PATIENT WAS FASTINGPERFORMED BY: [employer]70 OfferumAdventHealth Hendersonville [id number] Vitamin D, 25-Hydroxy 43.2 ng/mL (Normal) Range: 30.0-100.0 Comments: Vitamin D deficiency has been defined by the [place] of[place]icine and an Endocrine Society practice guideline as alevel of serum 25-OH vitamin D less than 20 ng/mL (1,2).The Endocrine Society went on to further define vitamin Dinsufficiency as a level between 21 and 29 ng/mL (2).1. IOM ([place] of Medicine). 2010. Dietary reference intakes for calcium and D. Fu [place]: The National Academies Press.2. Castillo MF, Yocasta SHABAZZ, Jerri MACIEL, et al. Evaluation, treatment, and prevention of vitamin D deficiency: an Endocrine Society clinical practice guideline. JCEM. 2010; 96(7):1911-30. 50-Ckm-79981:12 LIPID PANEL (12124) Comments: PATIENT WAS FASTINGPERFORMED BY: [employer] [facility] [id number]; elen review on 03/24 LDL/HDL Ratio 1.6 {ratio_units} (Normal) Range: 0.0-3.2 Comments: LDL/HDL Ratio Men Women 1/2 Avg.Risk 1.0 1.5 Av g.Risk 3.6 3.2 2X Avg.Risk 6.2 5.0 3X Avg.Risk 8.0 6.1 LDL Cholesterol Calc 100 mg/dL (Abnormal) Range: 0-99 VLDL Cholesterol Christi 15 mg/dL (Normal) Range: 5-40 HDL Cholesterol 61 mg/dL (Normal) Triglycerides 73 mg/dL (Normal) Range: 0-149 Cholesterol, Total 176 mg/dL (Normal) Range: 100-199 24-Xam-233081:46 Vitamin D Hydroxy (25780) Comments: PATIENT WAS FASTINGPERFORMED BY: [email or web address] [address] [facility] [id number] Vitamin D, 25-Hydroxy 40.8 ng/mL (Normal) Range: 30.0-100.0 Comments: Vitamin D deficiency has been defined by the [place] of[place]icine and an Endocrine Society practice guideline as alevel of serum 25-OH vitamin D less than 20 ng/mL (1,2).The Endocrine Society went on to further define vitamin Dinsufficiency as a level between 21 and 29 ng/mL (2).1. IOM ([place] of Medicine). 2010. Dietary reference intakes for calcium and D. Fu [place]: The National Academies Press.2. Castillo MF, Yocasta [place], Jerri MACIEL, et al. Evaluation, treatment, and prevention of vitamin D deficiency: an Endocrine Society clinical practice guideline. JCEM. 2010; 96(7):1911-30. 16-Iws-639892:46 LIPID PANEL (62504) Comments: PATIENT WAS FASTINGPERFORMED BY: [email or web address] [facility] [id number] LDL/HDL Ratio 1.9 {ratio_units} (Normal) Range: 0.0-3.2 Comments: LDL/HDL Ratio Men Women 1/2 Avg.Risk 1.0 1.5 Av g.Risk 3.6 3.2 2X Avg.Risk 6.2 5.0 3X Avg.Risk 8.0 6.1 LDL Cholesterol Calc 101 mg/dL (Abnormal) Range: 0-99 VLDL Cholesterol Christi 13 mg/dL (Normal) Range: 5-40 HDL Cholesterol 53 mg/dL (Normal) Triglycerides 65 mg/dL (Normal) Range: 0-149 Cholesterol, Total 167 mg/dL (Normal) Range: 100-199 45-Kld-185816:46 MICROALBUMIN: CREATININE RATIO Comments: PATIENT WAS FASTINGPERFORMED BY: [email or web address] [facility] [id number] (87256) AND (80068) Microalb/Creat Ratio 12.6 {mg/g_creat} (Normal) Range: 0.0-30.0 Microalbumin, Urine 4.9 ug/mL (Normal) Creatinine, Urine 38.9 mg/dL (Normal) 41-Hoc-074158:46 METABOLIC PANEL, COMPREHENSIVE Comments: PATIENT WAS FASTINGPERFORMED BY: [email or web address] [facility] [id number] (85781) ALT (SGPT) 15 [iU]/L (Normal) Range: 0-32 [...] Glucose, Serum 86 mg/dL (Normal) Range: 65-99 87-Dyk-808023:46 HGB A1C (86670) Comments: PATIENT WAS FASTINGPERFORMED BY: [place] [id number] [facility] [id number] Hemoglobin A1c 6.0 % (Abnormal) Range: 4.8-5.6 Comments: . Pre-diabetes: 5.7 - 6.4 Diabetes: >6.4 Glycemic control for adults with diabetes: <7.0 :58 Magnesium (58144) Comments: PATIENT NOT FASTINGPERFORMED BY: [place] [id number] [facility] [id number] BY: [address] [id number] Magnesium, Serum 2.2 mg/dL (Normal) Range: 1.6-2.3 :58 Vitamin B-12 (cyanocobalamin) Comments: PATIENT NOT FASTINGPERFORMED BY: [place] 1216870 [facility] [id number] BY: [address] [id number] (03024) Vitamin B12 849 pg/mL (Normal) Range: 211-946 :58 CCP ANTIBODY (16037) Comments: PATIENT NOT FASTINGPERFORMED BY: PerBlueSt. Mary's HospitalSjghmc6197 [facility] [place] [id number] BY: [address] [id number] CCP Antibodies IgG/IgA 11 {units} (Normal) Range: 0-19 Comments: Negative <20 Weak positive 20 - 39 Moderate positive 40 - 59 Strong positive >59 :58 SED RATE ERYTHROCYTE Comments: PATIENT NOT FASTINGPERFORMED BY: PerBlueSt. Mary's HospitalRdbmyj0369 [facility] [id number] BY: [address] [id number] (61821) Sedimentation Rate-Westergren 2 mm/h (Normal) Range: 0-40 :58 C-REACTIVE PROTEIN (86154) Comments: PATIENT NOT FASTINGPERFORMED BY: PerBlue Wgvvsr6020 [facility] [id number] BY: [address] [id number] C-Reactive Protein, Quant 3.4 mg/L (Normal) Range: 0.0-4.9 :58 RHEUMATOID FACTOR-QUANT Comments: PATIENT NOT FASTINGPERFORMED BY: Per[facility] Mordwq7202 [facility] [place] [id number] BY: [address] [id number] (63082) RA Latex Turbid. <10.0 {IU/mL} (Normal) Range: 0.0-13.9 :58 BOUBACAR (ANTINUCLEAR ANTIBODY) Comments: PATIENT NOT FASTINGPERFORMED BY: Per[employer] Bgtzxp4396 Flores [facility] [id number] BY: PerBlue[address] [id number] (97692) BOUBACAR Direct Negative (Normal) :58 METABOLIC PANEL, Comments: PATIENT NOT FASTINGPERFORMED BY: PerBlueCarrie Tingley HospitalBixcgn5332 [facility] [id number] BY: [address] [id number] COMPREHENSIVE (48206) ALT (SGPT) 20 [iU]/L (Normal) Range: 0-32 [...] Glucose, Serum 87 mg/dL (Normal) Range: 65-99 :58 CBC with auto diff Comments: PATIENT NOT FASTINGPERFORMED BY: PerBlueCarrie Tingley HospitalCjtmrl0033 [facility] [id number] BY: [facility] Zbglnqmtzi7225 [facility] [id number] (79118) Immature Grans (Abs) 0.0 {x10E3/uL} (Normal) Range: [...] DIFF WBC Comments: PATIENT WAS FASTINGPERFORMED BY: [facility] Ybgjhn3703 [facility] [id number] Information: [id number] (24092) Immature Grans (Abs) 0.0 {x10E3/uL} (Normal) Range: [...] PANEL, COMPREHENSIVE Comments: PATIENT WAS FASTINGPERFORMED BY: LabCoSt. Mary's HospitalDhoody1588 [facility] [id number] (96371) ALT (SGPT) 21 [iU]/L (Normal) Range: 0-32 [...] Glucose, Serum 81 mg/dL (Normal) Range: 65-99 :47 LIPID PANEL (11996) Comments: PATIENT WAS FASTINGPERFORMED BY: C[place] [id number]; normal and has apt LDL/HDL Ratio 1.5 {ratio_units} (Normal) Range: 0.0-3.2 Comments: LDL/HDL Ratio Men Women 1/2 Avg.Risk 1.0 1.5 Av g.Risk 3.6 3.2 2X Avg.Risk 6.2 5.0 3X Avg.Risk 8.0 6.1 LDL Cholesterol Calc 81 mg/dL (Normal) Range: 0-99 VLDL Cholesterol Christi 16 mg/dL (Normal) Range: 5-40 HDL Cholesterol 55 mg/dL (Normal) Comments: According to ATP-III Guidelines, HDL-C >59 mg/dL is considered anegative risk factor for CHD. Triglycerides 78 mg/dL (Normal) Range: 0-149 Cholesterol, Total 152 mg/dL (Normal) Range: 100-199 :47 Vitamin D Hydroxy (83354) Comments: PATIENT WAS FASTINGPERFORMED BY: [place] [id number] Vitamin D, 25-Hydroxy 37.8 ng/mL (Normal) Range: 30.0-100.0 Comments: Vitamin D deficiency has been defined by the [place] of[place]icine and an Endocrine Society practice guideline as alevel of serum 25-OH vitamin D less than 20 ng/mL (1,2).The Endocrine Society went on to further define vitamin Dinsufficiency as a level between 21 and 29 ng/mL (2).1. IOM ([place] of Medicine). 2010. Dietary reference intakes for calcium and D. Fu [place]: The National AcademConnectFu Press.2. Yocasta Osei, Jerri MACIEL, et al. Evaluation, treatment, and prevention of vitamin D deficiency: an Endocrine Society clinical practice guideline. JCEM. 2010; 96(7):191-. :49 Vitamin D Hydroxy (38457) Comments: PATIENT WAS FASTINGPERFORMED BY: Ztail6370 [place] [id number] Vitamin D, 25-Hydroxy 38.7 ng/mL (Normal) Range: 30.0-100.0 Comments: Vitamin D deficiency has been defined by the [place] ofMedicine and an Endocrine Society practice guideline as alevel of serum 25-OH vitamin D less than 20 ng/mL (1,2).The Endocrine Society went on to further define vitamin Dinsufficiency as a level between 21 and 29 ng/mL (2).1. IOM ([place] of Medicine). 2010. Dietary reference intakes for calcium and D. Fu ID: The National CloudEngine Press.2. Yocasta Osei, Jerri MACIEL, et al. Evaluation, treatment, and prevention of vitamin D deficiency: an Endocrine Society clinical practice guideline. JCEM. 2010; 96(7):1911-30. :49 METABOLIC PANEL, Comments: PATIENT WAS FASTINGPERFORMED BY: Chuguobang [facility] Mpdadh6661 [facility] Hospitalin [place] [id number] Information: [id number]; apt. 04-28-15 COMPREHENSIVE (61680) ALT (SGPT) 18 [iU]/L (Normal) Range: 0-32 [...] Glucose, Serum 85 mg/dL (Normal) Range: 65-99 30-Ikg-35662:19 CBC With Differential/Platelet Comments: PATIENT WAS FASTINGPERFORMED BY: LabCoSt. Mary's HospitalQhkwzu0452 [facility] [id number] Information: [id number] Immature Grans (Abs) 0.0 {x10E3/uL} (Normal) Range: [...] Panel (14) Comments: PATIENT WAS FASTINGPERFORMED BY: LabCoSt. Mary's HospitalHijocq1169 [facility] [id number] ALT (SGPT) 15 [iU]/L (Normal) Range: 0-32 [...] Glucose, Serum 101 mg/dL (Abnormal) Range: 65-99 36-Rqi-72818:19 Lipid Panel With LDL/HDL Comments: PATIENT WAS FASTINGPERFORMED BY: Minted [facility] [id number] Ratio LDL/HDL Ratio 2.2 {ratio_units} Range: 0.0-3.2 (Normal) Comments: LDL/HDL Ratio Men Women 1/2 Avg.Risk 1.0 1.5 Av g.Risk 3.6 3.2 2X Avg.Risk 6.2 5.0 3X Avg.Risk 8.0 6.1 LDL Cholesterol Calc 115 mg/dL (Abnormal) Range: 0-99 VLDL Cholesterol Christi 16 mg/dL (Normal) Range: 5-40 HDL Cholesterol 53 mg/dL (Normal) Comments: According to ATP-III Guidelines, HDL-C >59 mg/dL is considered anegative risk factor for CHD. Triglycerides 80 mg/dL (Normal) Range: 0-149 Cholesterol, Total 184 mg/dL (Normal) Range: 100-199 19-Dec-2014 TSH 3.600 {uIU/mL} Comments: PATIENT WAS FASTINGPERFORMED BY: 51[employer]com Dqthaz8403 [facility] [id number] 7:19 (Normal) Range: 0.450-4.500 19-Dec-2014 Vitamin D, 25-Hydroxy 32.3 ng/mL (Normal) Comments: PATIENT WAS FASTINGPERFORMED BY: 51hejia.com Tszylz6217 [facility] [id number] 7:19 Range: 30.0-100.0 Comments: Vitamin D deficiency has been defined by the [place] of[place]icine and an Endocrine Society practice guideline as alevel of serum 25-OH vitamin D less than 20 ng/mL (1,2).The Endocrine Society went on to further define vitamin Dinsufficiency as a level between 21 and 29 ng/mL (2).1. IOM ([place] of Medicine). 2010. Dietary reference intakes for calcium and D. Fu [place]: The National Academies Press.2. Castillo MF, Yocasta SHABAZZ, Jerri MACIEL, et al. Evaluation, treatment, and prevention of vitamin D deficiency: an Endocrine Society clinical practice guideline. JCEM. 2010; 96(7):1911-30. 76-Brj-179083:09 CBC W/AUTO DIFF WBC Comments: PATIENT NOT FASTINGPERFORMED BY: [facility] Eaacjg7171 [facility] [id number] Information: [id number] (71405) Immature Grans (Abs) 0.0 {x10E3/uL} (Normal) Range: [...] 3.77-5.28 WBC 6.7 {x10E3/uL} (Normal) Range: 3.4-10.8 04-Eui-862955:09 METABOLIC PANEL, COMPREHENSIVE Comments: PATIENT NOT FASTINGPERFORMED BY: PerBlue Xpzrio3889 [facility] [id number] (49756) ALT (SGPT) 16 [iU]/L (Normal) Range: 0-32 [...] Glucose, Serum 81 mg/dL (Normal) Range: 65-99 68-Xxf-891248:09 LIPID PANEL (53861) Comments: PATIENT NOT FASTINGPERFORMED BY: PerBlueSt. Mary's HospitalQecenf4875 [facility] [id number] LDL/HDL Ratio 2.1 {ratio_units} (Normal) Range: 0.0-3.2 Comments: LDL/HDL Ratio Men Women 1/2 Avg.Risk 1.0 1.5 Av g.Risk 3.6 3.2 2X Avg.Risk 6.2 5.0 3X Avg.Risk 8.0 6.1 LDL Cholesterol Calc 118 mg/dL (Abnormal) Range: 0-99 VLDL Cholesterol Christi 18 mg/dL (Normal) Range: 5-40 HDL Cholesterol 56 mg/dL (Normal) Comments: According to ATP-III Guidelines, HDL-C >59 mg/dL is considered anegative risk factor for CHD. Triglycerides 92 mg/dL (Normal) Range: 0-149 Cholesterol, Total 192 mg/dL (Normal) Range: 100-199 20-Mhe-101652:09 Vitamin D Hydroxy (47054) Comments: PATIENT NOT FASTINGPERFORMED BY: Ztail6370 [facility] [id number] Vitamin D, 25-Hydroxy 37.4 ng/mL (Normal) Range: 30.0-100.0 Comments: Vitamin D deficiency has been defined by the [place] of[place]icine and an Endocrine Society practice guideline as alevel of serum 25-OH vitamin D less than 20 ng/mL (1,2).The Endocrine Society went on to further define vitamin Dinsufficiency as a level between 21 and 29 ng/mL (2).1. IOM ([place] of Medicine). 2010. Dietary reference intakes for calcium and D. Fu [place]: The National Academies Press.2. Castillo MF, Yocasta NC, Jerri MACIEL, et al. Evaluation, treatment, and prevention of vitamin D deficiency: an Endocrine Society clinical practice guideline. JCEM. 2010; 96(7):1911-30. 18-Gyn-15840:43 LIPID PANEL (97303) Comments: PATIENT WAS FASTINGPERFORMED BY: [facility] Hrkiwr5300 [facility] [id number] LDL/HDL Ratio 1.6 {ratio_units} (Normal) Range: 0.0-3.2 LDL Cholesterol Calc 103 mg/dL (Abnormal) Range: 0-99 VLDL Cholesterol Christi 11 mg/dL (Normal) Range: 5-40 HDL Cholesterol 63 mg/dL (Normal) Comments: According to ATP-III Guidelines, HDL-C >59 mg/dL is considered anegative risk factor for CHD. Triglycerides 57 mg/dL (Normal) Range: 0-149 Cholesterol, Total 177 mg/dL (Normal) Range: 100-199 :43 CBC WITH MANUAL DIFF Comments: PATIENT WAS FASTINGPERFORMED BY: LabCoSt. Mary's HospitalAcgmaf8865 [facility] [id number] Information: [id number] (70371) Immature Grans (Abs) 0.0 {x10E3/uL} (Normal) Range: [...] 3.77-5.28 WBC 6.2 {x10E3/uL} (Normal) Range: 3.4-10.8 81-Dzg-59274:43 METABOLIC PANEL, COMPREHENSIVE Comments: PATIENT WAS FASTINGPERFORMED BY: [facility] Rjuobn6604 [facility] [id number] (83125) ALT (SGPT) 20 [iU]/L (Normal) Range: 0-32 [...] Glucose, Serum 89 mg/dL (Normal) Range: 65-99 40-Lhv-57556:43 Vitamin D Hydroxy (40861) Comments: PATIENT WAS FASTINGPERFORMED BY: [facility] Obaovl9884 [facility] [id number] Vitamin D, 25-Hydroxy 43.0 ng/mL (Normal) Range: 30.0-100.0 Comments: Vitamin D deficiency has been defined by the [place] of[place]icine and an Endocrine Society practice guideline as alevel of serum 25-OH vitamin D less than 20 ng/mL (1,2).The Endocrine Society went on to further define vitamin Dinsufficiency as a level between 21 and 29 ng/mL (2).1. IOM ([place] of [place]). 2010. Dietary reference intakes for calcium and D. Fu [place]: The National Academies Press.2. Castillo MF, Yocasta SHABAZZ, Jerri MACIEL, et al. Evaluation, treatment, and prevention of vitamin D deficiency: an Endocrine Society clinical practice guideline. JCEM. 2010; 96(7):1911-30. 51-Cfa-86415:43 TSH (14363) Comments: PATIENT WAS FASTINGPERFORMED BY: [facility] Ohonny7692 [facility] [id number] TSH 2.870 {uIU/mL} (Normal) Range: 0.450-4.500 67-Ucd-905532:07 BILAT SCRN DIGITAL & CAD Radiology Report [...] Leal M.D.September 14, 2012 at 2:38:45 PM [id number] Signed GP/GP If you are the referring physician and would like to consult with theradiologist who provided this interpretation, please contact Allen Pak at [phone]. If this radiologist is unavailable, youwill be directed to another radiologist to assist. I f you are a patient with a question regarding this report, pleasecontactyour referring physician directly. Professional Interpretation Provided By: [employer], Phone , The se documents contain legally [...] destructionofthese documents. Dictated on 09/14/12 1407 by Bo BRADLEY,Csomeranscribed on 09/14/12 1445 by ITS IMPORTSign by Samuel Leal MD on 09/14/12 1446 Sign by: Samuel Leal MD 06-Aug-20129:37 Rapid Flu (72380 x 2) Influenza A Ag B Positive (Normal) 60-Dbe-018445:27 MYOCARD PERF STRESS/REST MULT Radiology Report See [...] suggest inducibleischemia. Dictated on 03/21/12 1104 by Gabby BRADLEY,AlexandrosTranscribed on 03/21/12 1327 by Anselmo NOEL by Gabby BRADLEY,Oscar on 03/21/12 1821 Sign by: Oscar Palacios MD 11-Hcm-266459:48 Vitamin D Hydroxy (71507) Comments: PATIENT NOT FASTINGPERFORMED BY: Ztail6370 Flores [facility] [id number] Vitamin D, 25-Hydroxy 46.3 ng/mL (Normal) Range: 30.0-100.0 Comments: Vitamin D deficiency has been defined by the [place] of[place]icine and an Endocrine Society practice guideline as alevel of serum 25-OH vitamin D less than 20 ng/mL (1,2).The Endocrine Society went on to further define vitamin Dinsufficiency as a level between 21 and 29 ng/mL (2).1. IOM ([place] of [place]). 2010. Dietary reference intakes for calcium and D. Uf DC: The National Academies Press.2. Castillo MF, Yocasta NC, Jerri MACIEL, et al. Evaluation, treatment, and prevention of vitamin D deficiency: an Endocrine Society clinical practice guideline. JCEM. 2010; 96(7):1911-30. 35-Tdx-947049:48 Protein Electro, Random Urine Comments: PATIENT NOT FASTINGPERFORMED BY: Per[facility] Cjnalx9616 [facility] [id number] Please note: SPRCS (Normal) Comments: Protein electrophoresis scan will follow via computer, mail, orcourier delivery. M-Dereck, % Not Observed % (Normal) Gamma Globulin, U 29.4 % (Normal) Beta Globulin, U 22.4 % (Normal) Syapm-7-Maaoaozb, U 17.0 % (Normal) Fneqz-1-Vdmipygn, U 5.0 % (Normal) Albumin, U 26.3 % (Normal) Protein,Total,Urine 2.1 mg/dL (Normal) Range: 0.0-15.0 07-Eej-424449:48 PARATHORMONE (15847) Comments: PATIENT NOT FASTINGPERFORMED BY: [employer]70 [facility] [id number] PTH, Intact 19 pg/mL (Normal) Range: 15-65 26-Avl-716645:48 Protein Electro.,S Comments: PATIENT NOT FASTINGPERFORMED BY: [employer]70 [facility] [id number] Please note: SPRCS (Normal) Comments: Protein electrophoresis scan will follow via computer, mail, orcourier delivery. A/G Ratio 1.5 (Normal) Range: 0.7-2.0 Globulin, Total 2.8 g/dL (Normal) Range: 2.0-4.5 M-Dereck Not Observed g/dL (Normal) Gamma Globulin 0.9 g/dL (Normal) Range: 0.5-1.6 Beta Globulin 1.0 g/dL (Normal) Range: 0.6-1.3 Zucwv-8-Uzxfkkun 0.6 g/dL (Normal) Range: 0.4-1.2 Omxrd-0-Fuqplkbg 0.2 g/dL (Normal) Range: 0.1-0.4 Albumin 4.2 g/dL (Normal) Range: 3.2-5.6 Protein, Total, Serum 7.0 g/dL (Normal) Range: 6.0-8.5 42-Nfp-323578:48 TSH (63921) Comments: PATIENT NOT FASTINGPERFORMED BY: [employer]70 [facility] [id number] TSH 1.760 {uIU/mL} (Normal) Range: 0.450-4.500 36-Vyz-705284:30 CHEST WITHOUT CONTRAST Radiology Report See Note [...] Leal M.D.February 09, 2012 at 8:57:03 AM [id number] onically Signed GP/GP If you are the referring physician and would like to consult with theradiologist who provided this interpretation, please contact Allen Pak at [phone]. If this r adiologist is unavailable, youwill be directed to another radiologist to assist. If you are a patient with a question regarding this report, pleasecontactyour referring physician directly. Professional Interpretation Provided By: [employer], Phone , Dictated on 02/08/12 1137 by Akshat Leal MDribed on 02/09/12 0920 by ITS IMPORTSign by Yury Leal MD on 02/09/12 0921 Sign by: Samuel Leal MD 83-Lbm-524089:13 METABOLIC PANEL, COMPREHENSIVE Comments: A duplicate report has been generated due to demographic updateof the patient's Date of , Age, Gender, and/or Specimen Date.Please review patient results, reference intervals, and calculatedresults (84788) that may have been affected by this change.PERFORMED BY: LabCoSt. Mary's HospitalTlojbn8442 [facility] [id number] ALT (SGPT) 17 [iU]/L (Normal) Range: 0-40 [...] Glucose, Serum 84 mg/dL (Normal) Range: 65-99 33-Ddh-581288:13 CBC WITH MANUAL DIFF (99904) Comments: A duplicate report has been generated due to demographic updateof the patient's Date of , Age, Gender, and/or Specimen Date.Please review patient results, reference intervals, and calculatedresults that may have been affected by this change.PERFORMED BY: [facility] Fdiaxa3184 [facility] [id number] Immature Grans (Abs) 0.0 {x10E3/uL} (Normal) Range: [...] 3.77-5.28 WBC 7.1 {x10E3/uL} (Normal) Range: 4.0-10.5 58-Iqc-248595:18 Homocysteine, Plasma (66160) Comments: PATIENT NOT FASTINGPERFORMED BY: [facility] Lhhbot3313 [facility] [id number] Homocyst(e)ine, Plasma 11.4 umol/L (Normal) Range: 0.0-15.0 53-Gwh-168749:18 Vitamin D Hydroxy Comments: PATIENT NOT FASTINGPERFORMED BY: [facility] Zdqwcy2833 [place] [id number] Information: [id number] (37943) Vitamin D, 25-Hydroxy 17.7 ng/mL (Abnormal) Range: 30.0-100.0 Comments: Vitamin D deficiency has been defined by the [place] of[place]icine and an Endocrine Society practice guideline as alevel of serum 25-OH vitamin D less than 20 ng/mL (1,2).The Endocrine Society went on to further define vitamin Dinsufficiency as a level between 21 and 29 ng/mL (2).1. IOM ([place] of Medicine). 2011. Dietary reference intakes for calcium and D. Fu DC: The National Academies Press.2. Castillo MF, Yocasta SHABAZZ, Jerri MACIEL, et al. Evaluation, treatment, and prevention of vitamin D deficiency: an Endocrine Society clinical practice guideline. JCEM. 2010; 96(7):1911-30. 63-Owh-756568:15 BILAT SCRN DIGITAL & CAD Radiology Report [...] radiologist regarding this report, please call our 55X6tbumxdt line @ Dictated on 08/30/11 1357 by Tomas Leal MDrieleTranscribed on 08/30/11 1421 by ITS IMPORTSign by Samuel Leal MD on 08/30/11 142 Sign by: Samuel Leal MD 61-Nmu-126460:14 DEXA BONE DENSITY STUDY (HP) Radiology Report [...] logist regarding this report, please call our 98C9xdvwfts line @ Dictated on 08/30/11 1322 by Bo BRADLEY,Susiscribed on 08/30/11 1559 by ITS IMPORTSign by Bo BRADLEY,Anton aparicio on 08/30/11 1600 Sign by: Samuel Leal MD 85-Ebr-94011:42 Anticardiolipin Ab, IgA, Qn Comments: PATIENT WAS FASTINGPERFORMED BY: [employer] [address]zwv[address]uc[address] [id number] BY: Chuguobang [facility] Kxnlro7864 [facility] [id number] BY: TG [facility] ZOR3229 [facility] [id number] Anticardiolipin Ab,IgA,Qn <9 {APL_U/mL} Range: 0-11 (Normal) Comments: Negative: <12 Indeterminate: 12 - 20 Low-Med Positive: >20 - 80 High Positive: >80 17-Aug-2011 Antithrombin Activity 110 % (Normal) Comments: PATIENT WAS FASTINGPERFORMED BY: HDmessaging [facility] Ndtfgernwf[address] [id number] BY: [facility] Mmdzwp8728 [facility] [id number] BY: TG [facility] 9:42 PJT6853 [facility] [id number] Range: 75-135 99-Edi-77018:42 CBC With Differential/Platelet Comments: PATIENT WAS FASTINGPERFORMED BY: HDmessaging [facility] Zdywh[address]zn[address] [id number] BY: Chuguobang [facility] Crkldn2918 [place] [facility] [id number] BY: TG [facility] KYX3055 [facility] [id number] Immature Grans (Abs) 0.0 {x10E3/uL} (Normal) Range: [...] 3.80-5.10 WBC 6.8 {x10E3/uL} (Normal) Range: 4.0-10.5 26-Ujh-48517:42 Comp. Metabolic Panel Comments: PATIENT WAS FASTINGPERFORMED BY: [facility] Jtonexyfjk0918 [facility] [id number] BY: CB [facility] Aovhil1912 [facility] [id number] BY: [employer] (14) RXN6134 Ry[facility] [id number] ALT (SGPT) 20 [iU]/L (Normal) Range: 0-40 [...] % (Normal) Comments: PATIENT WAS FASTINGPERFORMED BY: BN [facility] [address] [id number] BY: CB [facility] Gvbhkk3718 [facility] [id number] BY: TG [facility] 42 OSZ4678 [address] [place] [id number] Range: 75-130 80-Bch-55770:42 Factor V Leiden Mutation Comments: PATIENT WAS FASTINGPERFORMED BY: [facility] Zvzrkuxwsa4169 [place] [id number] BY: CB [facility] Ekvtfc4460 [place] [id number] BY: [facility] UFN8047 [place] [place] [id number] Factor V Leiden FVNEG3 (Normal) Comments: Result: [...] in the workup for venous thrombosis include [id number] mutation in the factor II (prothrombin) gene,protein S and C deficiency, and antithromb in deficiencies.Anticardiolipin antibody and lupus anticoagulant analysismay be appropriate for certain patients, as well ashomocysteine levels. .Contact your local [facility] for information on how to orderadditional testing if desired. .Genetic counselors are available for health care* providers to discuss results at [phone] ([phone]). .Methodology:DNA analysis of the Factor V gene was performed by allele-specific PCR followed by gel electrophoresis. The diagnosticsensitivity and specificity is >99% for both. Molecular-based testing is highly accurate, but as in any laboratorytest, diagnostic errors may occur. All test results must becombined with clinical information for the most accurateinterpretation. .References:Chastity Cadena (1995). Clin Lab Med 16: 169-186. .Amol Daniels, Ph.D.Yady Patel, Ph.D.Emelyn Cortes, Ph.D.Sujey Muhammad, Ph.D.Monique Carter, Ph.D.Julia Escobar M.D .June Enriquez, Ph.D. . :42 Lupus Anticoagulant Comp Comments: PATIENT WAS FASTINGPERFORMED BY: [address] [id number] BY: [place] [id number] [facility] [id number] BY: [address] [id number] Interpretation Comment: (Normal) Comments: No lupus anticoagulant [...] :42 MTHFR Comments: PATIENT WAS FASTINGPERFORMED BY: [address] [id number] BY: [facility]6370 [facility] [id number] BY: [facility] QSO7934 [facility] [id number] MTHFR, DNA Analysis 6712HE (Abnormal) Comments: Result: 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 One copy of the C677T mutation and one copy of the L5145Mexazlegz were identified. Population data suggest t hese two mutationsare not present on the same chromosome, although rare exceptions havebeen reported. The diagnosis of hyperhomocysteinemia can not rely onDNA testing alone but should take into consid eration clinical findingsand other studies, such as serum homocysteine levels. Because MTHFRmutations and their associated risks are inherited, genetic counselingand testing of at-risk family members s forestuld be considered. .Genetic counselors are available to discuss these results with health care providers at [phone] .The MTHFR enzyme is responsible for creating the circulatingform of folate. Folate is important in homocysteine regula-tion. Defects in the MT HFR enzyme can indirectly causeelevated homocysteine levels. The C677T mutation in theMTHFR gene can cause elevated homocysteine levels in tommy-viduals with insufficient folate, particularly when there are two mutations present. The M5810O mutation has not beenassociated with elevated homocysteine levels unless a B272Kgwodqspj is also present. Elevated serum homocysteine levelshave [...] .Prateek HORTON. (199 8). Nutrition Review 56:236-244.Kwaku R. (1997). Thromb Haemost 78:523- 526.Deanne and Zak. (2000). Am J Epidemiol 151:862-877. .Amol lira, Ph.D.Yady Patel, Ph.D.Emelyn Cortes, Ph.D.Sujey Muhammad, Ph.D.Monique Carter, Ph.D.Julia Escobar M.D.Val. Faye Enriquez, Ph.D. . 52-Okx-67272:42 Protein C Deficiency Comments: PATIENT WAS FASTINGPERFORMED BY: [facility] [address] [id number] BY: CB [facility] Vhdihi16[address] Flores RoadDublin [place] [id number] BY: TG [facility] BJP9184Joanna WhitakerEINSTEIN [facility] [id number] Protein C-Functional 147 % (Normal) Range: 74-151 Protein C Antigen 117 % (Normal) Range: 70-140 :42 Protein S Panel Comments: PATIENT WAS FASTINGPERFORMED BY: [facility] [address] [id number] BY: CB [facility] Xkleus[address] [facility] HospitalDublin [place] [id number] BY: TG [facility] BPR0736 Ryder WhitakerEINSTEIN [facility] [id number] Protein S-Functional 78 % (Normal) Range: 60-145 Protein S, Free 74 % (Normal) Range: 56-124 Protein S, Total 101 % (Normal) Range: 58-150 TSH 1.550 {uIU/mL} Comments: PATIENT WAS FASTINGPERFORMED BY: BN [facility] [address] [id number] BY: CB [facility] Jbiqzx9058 [address] RoadDublin [place] [id number] BY: TG [facility] :42 (Normal) DVR9801 Ryder [facility] [id number] Range: 0.450-4.500 Vitamin D, 25-Hydroxy 20.1 ng/mL Comments: PATIENT WAS FASTINGPERFORMED BY: [facility] [address] [id number] BY: CB [facility] Ruojsi34[address] [facility] HospitalDublin [place] [id number] BY: TG [facility] :42 (Abnormal) [id number] Ryder WhitakerEINST[facility] [id number] Range: 30.0-100.0 Comments: Vitamin D deficiency has been defined by the [place] ofMedicine and an Endocrine Society practice guideline as alevel of serum 25-OH vitamin D less than 20 ng/mL (1,2).The Endocrine Society went on to further define vitamin Dinsufficiency as a level between 21 and 29 ng/mL (2).1. IOM ([place] of Medicine). 2011. Dietary reference intakes for calcium and D. Fu [place]: The National Academies Press.2. Castillo MF, Yocasta SHABAZZ, Jerri MACIEL, et al. Evaluation, treatment, and prevention of vitamin D deficiency: an Endocrine Society clinical practice guideline. JCEM. 2010; 96(7):1911-30. 43-Cvk-710716:01 CHEST WITHOUT CONTRAST Radiology Report See Note [...] Dictated on 06/29/11 1107 by JUANITA CARRERO MD BTranscribed on 06/29/11 1511 by ITS IMPORTSign by JUANITA CARRERO MD on 06/29/11 1512 Sign by: JUANITA CARRERO MD 65-Jfc-911024:02 PT (PROTHROMBIN TIME) Comments: PATIENT NOT FASTINGPERFORMED BY: [facility]6370 [facility] [id number] Information: [id number] ([id number]) Prothrombin Time 31.0 {sec} (Abnormal) Range: 8.7-11.5 Comments: Effective June 20, 2011, the reference interval will be changing to: 9.1 - 12.0 INR 2.9 (Abnormal) Range: 0.8-1.2 Comments: Reference interval is for non-anticoagulated patients. . Suggested INR therapeutic range for Vitamin K anta gonist therapy: Standard Dose (moderate intensity therapeutic range): 2.0 - 3.0 Higher intensity therapeutic range 2.5 - 3.5 39-Vug-788577:29 PT (PROTHROMBIN TIME) Comments: PATIENT NOT FASTINGPERFORMED BY: [place] [id number] [facility] [id number] Information: [id number] ([id number]) Prothrombin Time 23.9 {sec} (Abnormal) Range: 8.7-11.5 Comments: Effective June 20, 2011, the reference interval will be changing to: 9.1 - 12.0 INR 2.3 (Abnormal) Range: 0.8-1.2 Comments: Reference interval is for non-anticoagulated patients. . Suggested INR therapeutic range for Vitamin K anta gonist therapy: Standard Dose (moderate intensity therapeutic range): 2.0 - 3.0 Higher intensity therapeutic range 2.5 - 3.5 20-Rzg-635535:21 PT (PROTHROMBIN TIME) Comments: PATIENT NOT FASTINGPERFORMED BY: [place] [id number] [facility] [id number] Information: [id number] ([id number]) Prothrombin Time 19.7 {sec} (Abnormal) Range: 8.7-11.5 Comments: Effective June 20, 2011, the reference interval will be changing to: 9.1 - 12.0 INR 1.9 (Abnormal) Range: 0.8-1.2 Comments: Reference interval is for non-anticoagulated patients. . Suggested INR therapeutic range for Vitamin K anta gonist therapy: Standard Dose (moderate intensity therapeutic range): 2.0 - 3.0 Higher intensity therapeutic range 2.5 - 3.5 :40 PT (PROTHROMBIN TIME) Comments: PATIENT NOT FASTINGPERFORMED BY: [place] [id number] [facility] [id number] Information: [id number] ([id number]) Prothrombin Time 38.3 {sec} (Abnormal) Range: 8.7-11.5 INR 3.6 (Abnormal) Range: 0.8-1.2 Comments: Client Requested Flag Reference interval is for non- anticoagulated patients. . Suggested INR therapeutic ra nge for Vitamin K antagonist therapy: Standard Dose (moderate intensity therapeutic range): 2.0 - 3.0 Higher intensity therapeutic range 2.5 - 3.5 :08 PT (PROTHROMBIN TIME) (33229) Comments: PATIENT NOT FASTINGPERFORMED BY: [facility]6370 [facility] [id number] Prothrombin Time 32.2 {sec} (Abnormal) Range: 8.7-11.5 INR 3.1 (Abnormal) Range: 0.8-1.2 Comments: Reference interval is for non-anticoagulated patients. . Suggested INR therapeutic range for Vitamin K anta gonist therapy: Standard Dose (moderate intensity therapeutic range): 2.0 - 3.0 Higher intensity therapeutic range 2.5 - 3.5 :14 PT (PROTHROMBIN TIME) Comments: PATIENT NOT FASTINGPERFORMED BY: [place] [id number] [facility] [id number] Information: [id number] ([id number]) Prothrombin Time 25.0 {sec} (Abnormal) Range: 8.7-11.5 INR 2.4 (Abnormal) Range: 0.8-1.2 Comments: Reference interval is for non-anticoagulated patients. . Suggested INR therapeutic range for Vitamin K anta gonist therapy: Standard Dose (moderate intensity therapeutic range): 2.0 - 3.0 Higher intensity therapeutic range 2.5 - 3.5 :25 PT (PROTHROMBIN TIME) Comments: PATIENT NOT FASTINGPERFORMED BY: [place] [id number] [facility] [id number] Information: [id number] ([id number]) Prothrombin Time 35.1 {sec} (Abnormal) Range: 8.7-11.5 INR 3.3 (Abnormal) Range: 0.8-1.2 Comments: Reference interval is for non-anticoagulated patients. . Suggested INR therapeutic range for Vitamin K anta gonist therapy: Standard Dose (moderate intensity therapeutic range): 2.0 - 3.0 Higher intensity therapeutic range 2.5 - 3.5 :48 PT (PROTHROMBIN TIME) Comments: PATIENT NOT FASTINGPERFORMED BY: [facility]6370 [facility] [id number] Information: [id number] ([id number]) Prothrombin Time 28.1 {sec} (Abnormal) Range: 8.7-11.5 INR 2.6 (Abnormal) Range: 0.8-1.2 Comments: Reference interval is for non-anticoagulated patients. . Suggested INR therapeutic range for Vitamin K anta gonist therapy: Standard Dose (moderate intensity therapeutic range): 2.0 - 3.0 Higher intensity therapeutic range 2.5 - 3.5 :09 PT (PROTHROMBIN TIME) Comments: PATIENT NOT FASTINGPERFORMED BY: [facility]6370 [facility] [id number] Information: [id number] ([id number]) Prothrombin Time 25.4 {sec} (Abnormal) Range: 8.7-11.5 INR 2.4 (Abnormal) Range: 0.8-1.2 Comments: Reference interval is for non-anticoagulated patients. . Suggested INR therapeutic range for Vitamin K anta gonist therapy: Standard Dose (moderate intensity therapeutic range): 2.0 - 3.0 Higher intensity therapeutic range 2.5 - 3.5 :45 PT (PROTHROMBIN TIME) Comments: PATIENT NOT FASTINGPERFORMED BY: [facility]6370 [facility] [id number] Information: [id number] ([id number]) Prothrombin Time 26.1 {sec} (Abnormal) Range: 8.7-11.5 INR 2.4 (Abnormal) Range: 0.8-1.2 Comments: Reference interval is for non-anticoagulated patients. . Suggested INR therapeutic range for Vitamin K anta gonist therapy: Standard Dose (moderate intensity therapeutic range): 2.0 - 3.0 Higher intensity therapeutic range 2.5 - 3.5 :06 Prothrombin Time (PT) Comments: PERFORMED BY: PRANEETH [facility]6370 [facility] [id number] Prothrombin Time 25.8 {sec} (Abnormal) Range: 8.7-11.5 INR 2.4 (Abnormal) Range: 0.8-1.2 Comments: Reference interval is for non-anticoagulated patients. . Suggested INR therapeutic range for Vitamin K anta gonist therapy: Standard Dose (moderate intensity therapeutic range): 2.0 - 3.0 Higher intensity therapeutic range 2.5 - 3.5 :56 PT (PROTHROMBIN TIME) Comments: PATIENT NOT FASTINGPERFORMED BY: [place] [id number] [facility] [id number] Information: [id number] ([id number]) Prothrombin Time 18.9 {sec} (Abnormal) Range: 8.7-11.5 INR 1.8 (Abnormal) Range: 0.8-1.2 Comments: Reference interval is for non-anticoagulated patients. . Suggested INR therapeutic range for Vitamin K anta gonist therapy: Standard Dose (moderate intensity therapeutic range): 2.0 - 3.0 Higher intensity therapeutic range 2.5 - 3.5 5-Tad-423967:14 Prothrombin Time (PT) Comments: PERFORMED BY: [facility]6370 [facility] [id number] Prothrombin Time 29.7 {sec} (Abnormal) Range: 8.7-11.5 INR 2.8 (Abnormal) Range: 0.8-1.2 Comments: Reference interval is for non-anticoagulated patients. . Suggested INR therapeutic range for Vitamin K anta gonist therapy: Standard Dose (moderate intensity therapeutic range): 2.0 - 3.0 Higher intensity therapeutic range 2.5 - 3.5 3-Hwe-772263:05 Prothrombin Time (PT) Comments: PERFORMED BY: [facility]6370 [facility] [id number] Prothrombin Time 38.0 {sec} (Abnormal) Range: 8.7-11.5 INR 3.5 (Abnormal) Range: 0.8-1.2 Comments: Reference interval is for non-anticoagulated patients. . Suggested INR therapeutic range for Vitamin K anta gonist therapy: Standard Dose (moderate intensity therapeutic range): 2.0 - 3.0 Higher intensity therapeutic range 2.5 - 3.5 51-Uud-520886:45 Prothrombin Time (PT) Comments: PERFORMED BY: [employer] Nilxqt9304 [facility] [id number] Prothrombin Time 32.4 {sec} (Abnormal) Range: 8.7-11.5 INR 3.0 (Abnormal) Range: 0.8-1.2 Comments: Reference interval is for non-anticoagulated patients. . Suggested INR therapeutic range for Vitamin K anta gonist therapy: Standard Dose (moderate intensity therapeutic range): 2.0 - 3.0 Higher intensity therapeutic range 2.5 - 3.5 :46 Prothrombin Time (PT) Comments: PERFORMED BY: PerBlueSt. Mary's HospitalGhjywd3783 [facility] [id number] Prothrombin Time 34.4 {sec} (Abnormal) Range: 8.7-11.5 INR 3.2 (Abnormal) Range: 0.8-1.2 Comments: Reference interval is for non-anticoagulated patients. . Suggested INR therapeutic range for Vitamin K anta gonist therapy: Standard Dose (moderate intensity therapeutic range): 2.0 - 3.0 Higher intensity therapeutic range 2.5 - 3.5 5-Tlz-310898:39 Prothrombin Time (PT) Comments: PERFORMED BY: PerBlueSt. Mary's HospitalCuewir9797 [facility] [id number] Prothrombin Time 31.7 {sec} (Abnormal) Range: 8.7-11.5 INR 3.0 (Abnormal) Range: 0.8-1.2 Comments: Reference interval is for non-anticoagulated patients. . Suggested INR therapeutic range for Vitamin K anta gonist therapy: Standard Dose (moderate intensity therapeutic range): 2.0 - 3.0 Higher intensity therapeutic range 2.5 - 3.5 05-Jeb-155980:03 Prothrombin Time (PT) Comments: PERFORMED BY: PictarineExcelsior Springs Medical CenterMspcbs6173 [facility] [id number] Prothrombin Time 31.1 {sec} (Abnormal) Range: 8.7-11.5 INR 2.9 (Abnormal) Range: 0.8-1.2 Comments: Reference interval is for non-anticoagulated patients. . Suggested INR therapeutic range for Vitamin K anta gonist therapy: Standard Dose (moderate intensity therapeutic range): 2.0 - 3.0 Higher intensity therapeutic range 2.5 - 3.5 28-Njm-047486:00 Prothrombin Time (PT) Comments: PERFORMED BY: [facility] CenterSmith Electric VehiclesSt. Mary's HospitalHumkbt0113 [facility] [id number] Prothrombin Time 31.3 {sec} (Abnormal) Range: 8.7-11.5 INR 2.9 (Abnormal) Range: 0.8-1.2 Comments: Reference interval is for non-anticoagulated patients. . Suggested INR therapeutic range for Vitamin K anta gonist therapy: Standard Dose (moderate intensity therapeutic range): 2.0 - 3.0 Higher intensity therapeutic range 2.5 - 3.5 :47 Prothrombin Time (PT) Comments: PERFORMED BY: [facility]6370 [facility] [id number] Prothrombin Time 20.6 {sec} (Abnormal) Range: 8.7-11.5 INR 1.9 (Abnormal) Range: 0.8-1.2 Comments: Reference interval is for non-anticoagulated patients. . Suggested INR therapeutic range for Vitamin K anta gonist therapy: Standard Dose (moderate intensity therapeutic range): 2.0 - 3.0 Higher intensity therapeutic range 2.5 - 3.5 :36 Prothrombin Time (PT) Comments: PERFORMED BY: [facility]6370 [facility] [id number] Prothrombin Time 27.7 {sec} (Abnormal) Range: 8.7-11.5 INR 2.6 (Abnormal) Range: 0.8-1.2 Comments: Reference interval is for non-anticoagulated patients. . Suggested INR therapeutic range for Vitamin K anta gonist therapy: Standard Dose (moderate intensity therapeutic range): 2.0 - 3.0 Higher intensity therapeutic range 2.5 - 3.5 36-Nxc-59431:32 Prothrombin Time (PT) Comments: PERFORMED BY: [facility]6370 [facility] [id number] Prothrombin Time 44.8 {sec} (Abnormal) Range: 8.7-11.5 INR 4.2 (Abnormal) Range: 0.8-1.2 Comments: Client Requested Flag Reference interval is for non- anticoagulated patients. . Suggested INR therapeutic ra nge for Vitamin K antagonist therapy: Standard Dose (moderate intensity therapeutic range): 2.0 - 3.0 Higher intensity therapeutic range 2.5 - 3.5 :39 CHEST WITH CONTRAST Radiology Report See Note (Normal) Comments: Exam Number: [id number] LINICAL:This is a 64-year-old female patient with [...] Stable nodules bilaterally. Reported By: SAMUEL LEAL 31-May-20108:37 BILAT SCRN DIGITAL & CAD Radiology Report See Note (Normal) Comments: Exam Number: [id number] AMMOGRAPHY - BILATERAL SCREENING INDICATION:Routine annual screening [...] attaching a ResultCode to this exam. ADDENDUM: [id number] HPBI/MDS Reported By: VIKTORIYA MAJANO M.D. 58-Cqu-703038:55 Prothrombin Time (PT) Comments: PERFORMED BY: [employer]70 [facility] ClothingAt[facility] Pineville [id number] Prothrombin Time 29.1 {sec} (Abnormal) Range: 8.7-11.5 INR 2.7 (Abnormal) Range: 0.8-1.2 Comments: Reference interval is for non-anticoagulated patients. . Suggested INR therapeutic range for Vitamin K anta gonist therapy: Standard Dose (moderate intensity therapeutic range): 2.0 - 3.0 Higher intensity therapeutic range 2.5 - 3.5 46-Toz-147862:29 Prothrombin Time (PT) Comments: PERFORMED BY: [employer] Ovghmy8462 [facility] [id number] Prothrombin Time 30.2 {sec} (Abnormal) Range: 8.7-11.5 INR 2.8 (Abnormal) Range: 0.8-1.2 Comments: Reference interval is for non-anticoagulated patients..Suggested INR therapeutic range for Vitamin Kantagonist therapy:Standard Dose (moderate intensitytherapeutic range): 2.0 - 3.0Higher intensity therapeutic range 2.5 - 3.5 48-Tvc-916800:36 Prothrombin Time (PT) Comments: PERFORMED BY: [employer] Tkqhcl2538 [facility] [id number] Prothrombin Time 23.4 {sec} (Abnormal) Range: 8.7-11.5 INR 2.2 (Abnormal) Range: 0.8-1.2 Comments: Reference interval is for non-anticoagulated patients..Suggested INR therapeutic range for Vitamin Kantagonist therapy:Standard Dose (moderate intensitytherapeutic range): 2.0 - 3.0Higher intensity therapeutic range 2.5 - 3.5 :04 PT (Prothrobim Time) Comments: PATIENT NOT FASTINGPERFORMED BY: PictarineM[place] [id number] [facility] [id number] Information: [id number] ([id number]) Prothrombin Time 31.7 {sec} (Abnormal) Range: 8.7-11.5 INR 3.0 (Abnormal) Range: 0.8-1.2 Comments: Reference interval is for non-anticoagulated patients..Suggested INR therapeutic range for Vitamin Kantagonist therapy:Standard Dose (moderate intensitytherapeutic range): 2.0 - 3.0Higher intensity therapeutic range 2.5 - 3.5 :34 LIPID PANEL (43520) Comments: PATIENT WAS FASTINGPERFORMED BY: [employer] Uuhmrd0347 [facility] [id number] HDL Cholesterol 61 mg/dL (Normal) Comments: According to ATP-III Guidelines, HDL-C >59 mg/dL is considered anegative risk factor for CHD. LDL Cholesterol Calc 103 mg/dL (Abnormal) Range: 0-99 LDL/HDL Ratio 1.7 {ratio_units} (Normal) Range: 0.0-3.2 VLDL Cholesterol Christi 18 mg/dL (Normal) Range: 5-40 Triglycerides 92 mg/dL (Normal) Range: 0-149 Cholesterol, Total 182 mg/dL (Normal) Range: 100-199 :34 METABOLIC PANEL, COMPREHENSIVE Comments: PATIENT WAS FASTINGPERFORMED BY: PerBlueSt. Mary's HospitalKyqtdj6440 [facility] [id number] (15065) ALT (SGPT) 19 [iU]/L (Normal) Range: 0-40 [...] Glucose, Serum 82 mg/dL (Normal) Range: 65-99 09-Wee-43641:34 CBC WITH MANUAL DIFF Comments: PATIENT WAS FASTINGPERFORMED BY: LabCoSt. Mary's HospitalIlhpno9641 [facility] [id number] Information: ADD [id number] AND DRAW FEE 99 2020 (57001) Immature Grans (Abs) 0.0 {x10E3/uL} (Normal) Range: [...] (Normal) Range: 4.0-10.5 :34 Vitamin D Hydroxy (01004) Comments: PATIENT WAS FASTINGPERFORMED BY: [employer] [facility] [id number] Vitamin D, 25-Hydroxy 48.1 ng/mL (Normal) Range: 32.0-100.0 Comments: Recent studies consider the lower limit of 32.0 ng/mL to be athreshold for optimal health.Simon NUNEZ. J Nutr. 2004;135(2):317-22. 99-Aqt-041521:18 Prothrombin Time (PT) Comments: PERFORMED BY: LabCoLumiFoldYisosx2730 [facility] [id number] Prothrombin Time 26.5 {sec} (Abnormal) Range: 8.7-11.5 INR 2.7 (Abnormal) Range: 0.8-1.2 Comments: Reference interval is for non-anticoagulated patients..Suggested INR therapeutic range for Vitamin Kantagonist therapy:Standard Dose (moderate intensitytherapeutic range): 2.0 - 3.0Higher intensity therapeutic range 2.5 - 3.5 73-Vgu-726594:55 Prothrombin Time (PT) Comments: PERFORMED BY: [facility]arineTr[facility] Hospital6370 [facility] [id number] Prothrombin Time 27.7 {sec} (Abnormal) Range: 8.7-11.5 INR 2.8 (Abnormal) Range: 0.8-1.2 Comments: Reference interval is for non-anticoagulated patients..Suggested INR therapeutic range for Vitamin Kantagonist therapy:Standard Dose (moderate intensitytherapeutic range): 2.0 - 3.0Higher intensity therapeutic range 2.5 - 3.5 9-Wul-916524:49 Prothrombin Time (PT) Comments: PERFORMED BY: [facility]arineTr[facility] Hospital6370 [facility] [id number] Prothrombin Time 26.0 {sec} (Abnormal) Range: 8.7-11.5 INR 2.6 (Abnormal) Range: 0.8-1.2 Comments: Reference interval is for non-anticoagulated patients..Suggested INR therapeutic range for Vitamin Kantagonist therapy:Standard Dose (moderate intensitytherapeutic range): 2.0 - 3.0Higher intensity therapeutic range 2.5 - 3.5 :37 CHEST WITH CONTRAST Radiology Report See Note (Normal) Comments: Exam Number: [id number] CLINICAL:Fluoroscopy study for pulmonary embolism and lymphadenopathy [...] isadvised.Emphysema.No mediastinal lymphadenopathy. Reported By: DONELL FERGUSON 4-Oca-087127:16 Prothrombin Time (PT) Comments: PERFORMED BY: [email or web address]70 [facility] [id number] Prothrombin Time 25.2 {sec} (Abnormal) Range: 8.7-11.5 INR 2.6 (Abnormal) Range: 0.8-1.2 Comments: Reference interval is for non-anticoagulated patients..Suggested INR therapeutic range for Vitamin Kantagonist therapy:Standard Dose (moderate intensitytherapeutic range): 2.0 - 3.0Higher intensity therapeutic range 2.5 - 3.5 33-Nir-330169:50 Prothrombin Time (PT) Comments: PERFORMED BY: [email or web address]70 [facility] [id number] Prothrombin Time 29.3 {sec} (Abnormal) Range: 8.7-11.5 INR 3.0 (Abnormal) Range: 0.8-1.2 Comments: Reference interval is for non-anticoagulated patients..Suggested INR therapeutic range for Vitamin Kantagonist therapy:Standard Dose (moderate intensitytherapeutic range): 2.0 - 3.0Higher intensity therapeutic range 2.5 - 3.5 12-Eyr-667469:07 Prothrombin Time (PT) Comments: PERFORMED BY: [employer]6370 [facility] [id number] Prothrombin Time 19.4 {sec} (Abnormal) Range: 8.7-11.5 INR 1.9 (Abnormal) Range: 0.8-1.2 Comments: Reference interval is for non-anticoagulated patients..Suggested INR therapeutic range for Vitamin Kantagonist therapy:Standard Dose (moderate intensitytherapeutic range): 2.0 - 3.0Higher intensity therapeutic range 2.5 - 3.5 43-Zzr-171995:16 Prothrombin Time (PT) Comments: PERFORMED BY: [employer] Ubrkmw2842 [facility] [id number] Prothrombin Time 21.6 {sec} (Abnormal) Range: 8.7-11.5 INR 2.2 (Abnormal) Range: 0.8-1.2 Comments: Reference interval is for non-anticoagulated patients..Suggested INR therapeutic range for Vitamin Kantagonist therapy:Standard Dose (moderate intensitytherapeutic range): 2.0 - 3.0Higher intensity therapeutic range 2.5 - 3.5 38-Wek-12204:21 MYOCARD PERF STRESS/REST MULT Radiology Report See Note (Normal) Comments: Exam Number: [id number] REGADENOSON CARDIOLITE STUDY HISTORYThis is a 64-year-old [...] orinducible ischemia. Reported By: OSCAR PALACIOS M.D. 19-Gkd-042393:41 Prothrombin Time (PT) Comments: PERFORMED BY: [facility] Yojjob1191 [facility] [id number] Prothrombin Time 19.6 {sec} Range: 8.7-11.5 (Abnormal) INR 2.0 (Abnormal) Range: 0.8-1.2 Comments: Reference interval is for non-anticoagulated patients..Suggested INR therapeutic range for Vitamin Kantagonist therapy:Standard Dose (moderate intensitytherapeutic range): 2.0 - 3.0Higher intensity therapeutic range 2.5 - 3.5 08-Oct-2009 Vitamin D, 25-Hydroxy 21.4 ng/mL Comments: PERFORMED BY: [facility]6370 [facility] [id number] 11:41 (Abnormal) Range: 32.0-100.0 Comments: Recent studies consider the lower limit of 32.0 ng/mL to be athreshold for optimal health.Simon NUNEZ. J Nutr. 2004;135(2):317-22. 8-Pib-896391:50 Prothrombin Time (PT) Comments: PERFORMED BY: [facility]6370 [facility] [id number] Prothrombin Time 18.2 {sec} (Abnormal) Range: 8.7-11.5 INR 1.8 (Abnormal) Range: 0.8-1.2 Comments: Reference interval is for non-anticoagulated patients..Suggested INR therapeutic range for Vitamin Kantagonist therapy:Standard Dose (moderate intensitytherapeutic range): 2.0 - 3.0Higher intensity therapeutic range 2.5 - 3.5 5-Vxc-887610: LDH 201 [iU]/L (Normal) Comments: PERFORMED BY: [facility] [id number] Range: 100-250 3-Cpc-998472:33 Prothrombin Time (PT) Comments: PERFORMED BY: [facility]6[address] [facility] [id number] Prothrombin Time 14.6 {sec} (Abnormal) Range: 8.7-11.5 INR 1.4 (Abnormal) Range: 0.8-1.2 Comments: Reference interval is for non-anticoagulated patients..Suggested INR therapeutic range for Vitamin Kantagonist therapy:Standard Dose (moderate intensitytherapeutic range): 2.0 - 3.0Higher intensity therapeutic range 2.5 - 3.5 LDH 227 U/L (Abnormal) Range: 100-190 :50 17-Yxo-195681:00 A-CARDIO [id number] ANTICARDIO IgG < 6 {GPL_U/mL} (Normal) Range: 0-10 Comments: Negative: <11Indeterminate: 11 - 19Low-Med Positive: 20 - 80Positive: >80 ANTICARDIO IgM 7 {MPL_U/mL} (Normal) Range: 0-9 Comments: Negative: <10Indeterminate: 10 - 19Low-Med Positive: 20 - 80Positive: >80Performed At: [facility] [place], [place] [id number] : C-REACTIVE PROT < 2.90 mg/L (Normal) [...] T PROT 6.9 g/dL (Normal) Range: 6.4-8.2 34-Oiz-461900:00 ESR SED RATE 11 mm/h (Normal) Range: 0-30 80-Obf-43763:49 PET/CT TUMOR BASE TO MID THIGH Radiology Report See Note (Normal) Comments: Exam Number: [id number] EXAM: Body PET study INDICATIONS: A 64-year-old [...] crista titativecriteria for centrally located thoracic/mediastinal viable neoplasm.(Normakileandra et al, Journal of Clinical Oncology 16:2142, 1998). 3. Heterogeneous radiopharmaceutical concentration noted i n thebilateral supraclavicular regions is consistent with the presence ofvisualization of brown adipose tissue, with associated thoracicparavertebral muscle tension artifact. (Cristiana, [facility] of Nuclear Medicine 29:1393, 2002). Reported By: VERÓNICA CHAPA 34-Hls-828034:15 PRO TIME Comments: CALL RESULTS TO DR. PEACOCK [phone] CALLED TO Jerome RAMON 09/10/09 LEO THAKUR.REPORT READ BACK BY SAME.; see not in emr to DF INR 3.2 (Normal) PROTIME 37.3 s (Abnormal) Range: 9.1-11.7 7-Fth-139452:47 TSH ([id number]) Comments: PATIENT NOT FASTINGPERFORMED BY: [facility] Nzkvlw9725 [facility] [id number] TSH 1.520 {uIU/mL} (Normal) Range: 0.450-4.500 :47 CBC WITH MANUAL DIFF Comments: PATIENT NOT FASTINGPERFORMED BY: [facility]6370 [facility] [id number] Information: [id number] ([id number]) Baso (Absolute) 0.0 {x10E3/uL} (Normal) Range: 0.0-0.2 [...] 3.80-5.10 WBC 11.1 {x10E3/uL} (Abnormal) Range: 4.0-10.5 :47 METABOLIC PANEL, COMPREHENSIVE Comments: PATIENT NOT FASTINGPERFORMED BY: [facility]6[address] [facility] [id number] ([id number]) ALT (SGPT) 38 [iU]/L (Normal) Range: 0-40 [...] Glucose, Serum 94 mg/dL (Normal) Range: 65-99 3-Emz-227745:47 LDH (LD) (LACTATE DEHYDROGENASE) Comments: PATIENT NOT FASTINGPERFORMED BY: [facility]007 [facility] [id number] ([id number]) LDH 410 [iU]/L (Abnormal) Range: 100-250 4-Xed-276326:47 URINE HARJIT CULTURE (CRISTA COL Comments: PATIENT NOT FASTINGPERFORMED BY: CB [facility] Kyixnm3241 [facility] [id number] COUNT) ([id number]) Result 1 MUG (Normal) Comments: Mixed urogenital flora3,000 Colonies/mL . Urine Final report (Normal) Culture,Comprehensive 75-Hvw-46964:49 VIT D,25 86524 43.4 ng/mL (Normal) Range: 32.0-100.0 Comments: Recent studies consider the lower limit of 32.0 ng/mL to jaci threshold for optimal health.[facility]. J Nutr. 2004;135(2):317-22.Performed At: [address] [id number] 57-Btd-928795:4 VIT D,25 50366 26.2 ng/mL (Abnormal) Range: 32.0-100.0 0 Comments: Recent studies consider the lower limit of 32.0 ng/mL to jaci threshold for optimal health.[facility]. J Nutr. 2004;135(2):317-22.Performed At: [facility] [place] [address] [id number] 07-Bba-642104:26 BILAT SCRN DIGITAL & CAD Radiology Report See Note (Normal) Comments: Exam Number: [id number] MAMMOGRAM, BILATERAL SCREENING DIGITAL AND CAD HISTORYRoutine [...] mammograms werealso examined with computer-aided detection software ([employer], [employer] Reported By: VIKTORIYA MAJANO M.D. 60-Vkr-694725:25 DEXA BONE DENSITY STUDY () Radiology Report See Note (Normal) Comments: Exam Number: [id number] BONE DENSITOMETRY HISTORYOsteopenia. TECHNIQUE Bone densitometry of [...] is measured at 0.8% greater than in 1998and 2% less than in 2006. Digital lateral [...] left hip. Reported By: VIKTORIYA MAJANO M.D. 11-Wbl-76956:20 CBCD,SMEAR DIFF BAND 1 % (Normal) Range: [...] 47-70 WBC 6.0 K/mm3 (Normal) Range: 4.4-11.0 :20 COMP METABOLIC A/G 1.1 {RATIO} (Normal) Range: [...] {uIU/mL} (Normal) Range: 0.34-4.82 :20 VIT D,25 57850 21.4 ng/mL (Abnormal) Range: 32.0-100.0 Comments: Recent studies consider the lower limit of 32.0 ng/mL to jaci threshold for optimal health.Simon NUNEZ. J Nutr. 2005 Aug;135(2):317-22.Performed At: [facility] [place] [address] [id number] :20 VITAMIN B12 685 pg/mL (Normal) Range: 211-911 :11 Thin prep Pap (18949) Comments: Source.............CervicalLMP / Prev Treat...YOR=[id number]. of containers..01 CYTYC Thin Prep VialPATIENT NOT FASTINGClinical Information: ADD [id number] PERFORMED BY: [facility] [id number] . . (Normal) DIAGNOSIS: SPRCS (Normal) Comments: NEGATIVE FOR INTRAEPITHELIAL LESION AND MALIGNANCY.CELLULAR CHANGES ASSOCIATED WITH ATROPHY ARE PRESENT.Satisfactory for evaluation. Endocervical component may not bedistinguished in cases of atrophy.V 72.31 ; Routine gynecological examinationSchanning Elam, Optical Lab Technician (ASCP)Clari Hernandez, Supervisory Optical Lab Technician (ASCP) Note: PAPSMR (Normal) Comments: The Pap [...] resulttherefore, no HPV testing was performed. . 8-Ker-954366:48 KNEE,4 OR MORE VIEWS Radiology Report See Note (Normal) Comments: Exam Number: [id number] FOUR VIEWS LEFT KNEE AP, LATERAL, TUNNEL [...] Plan of Care Name Dates Details Instructions [facility] WELLNESS EXAM : Eprescribed prescriptions (G8553) [...] woman exam Planned Observations Vitamin B-12 (cyanocobalamin) (31245)Indication: Paresthesia On: :15 Request LIPID PANEL (04439)Indication: Other hyperlipidemia On: 9-Wch-797052:15 Request MICROALBUMIN: CREATININE RATIO (63720) AND (03498)Indication: Elevated hemoglobin A1c On: 9-Dhp-257706:15 Request METABOLIC PANEL, COMPREHENSIVE (99483)Indication: Elevated hemoglobin A1c On: 6-Jpm-113706:15 Request HGB A1C (75532)Indication: Elevated hemoglobin A1c On: 2-Vwi-090932:15 Request METABOLIC PANEL, COMPREHENSIVE (58249)Indication: Elevated hemoglobin A1c On: 46-Xsx-01107:50 Request CBC with auto diff (13703)Indication: Gastroesophageal reflux disease without esophagitis On: :07 Request METABOLIC PANEL, COMPREHENSIVE (92793)Indication: Gastroesophageal reflux disease without esophagitis On: :07 Request LIPID PANEL (98278)Indication: Other hyperlipidemia On: :06 Request TSH (51817)Indication: Thyroid Nodule On: :06 Request Vitamin D Hydroxy (81095)Indication: Vitamin D deficiency, unspecified On: :06 Request CBC W/AUTO DIFF WBC (68272)Indication: Osteopenia of multiple sites On: :14 Request METABOLIC PANEL, COMPREHENSIVE (05492)Indication: Osteopenia of multiple sites On: :14 Request Vitamin D Hydroxy (27159)Indication: Vitamin D deficiency, unspecified On: :13 Request LIPID PANEL (99302)Indication: Other hyperlipidemia On: :13 Request TSH (40605)Indication: Thyroid Nodule On: :13 Request METABOLIC PANEL, COMPREHENSIVE (87406)Indication: Other hyperlipidemia On: 68-Xmd-265986:28 Request LIPID PANEL (35143)Indication: Other hyperlipidemia On: 20-Gzf-371188:27 Request Vitamin D Hydroxy (29083)Indication: Vitamin D deficiency, unspecified On: 17-Nls-198038:20 Request Influenza A&B Viral Culture (85202)Indication: Fever and chills On: 06-Aug-20129:48 Request Comments: positive BHad flu shot Vitamin D Hydroxy (07534)Indication: Osteopenia of multiple sites On: 63-Qhy-984905:15 Request Protein S Profile (32847)Indication: Pulmonary embolism (Renamed from PE (pulmonary embolism)) On: :13 Request Protein C Profile (30279)Indication: Pulmonary embolism (Renamed from PE (pulmonary embolism)) On: :13 Request MTHFR (73954)Indication: Pulmonary embolism (Renamed from PE (pulmonary embolism)) On: :13 Request Antiphospholipid atb (02103)Indication: Pulmonary embolism (Renamed from PE (pulmonary embolism)) On: :13 Request ANTICOAG ANTTHROMB III & ASSAY (52168)Indication: Pulmonary embolism (Renamed from PE (pulmonary embolism)) On: :13 Request ANTITHROMBIN III ACTIVTY (36175)Indication: Pulmonary embolism (Renamed from PE (pulmonary embolism)) On: :13 Request CLOTTING FACTOR II (75852)Indication: Pulmonary embolism (Renamed from PE (pulmonary embolism)) On: 23-Uez-13500:12 Request Factor V Leiden (41738)Indication: Pulmonary embolism (Renamed from PE (pulmonary embolism)) On: :12 Request PTT PLASMA SUBSTITUTION (83594) #[id number]: Pulmonary embolism (Renamed from PE (pulmonary embolism)) On: :12 Request PAL VIPER VENOM-DILUT (69730) #[id number]: Pulmonary embolism (Renamed from PE (pulmonary embolism)) On: :12 Request TSH (59374)Indication: Osteopenia of multiple sites On: :09 Request METABOLIC PANEL, COMPREHENSIVE (00531)Indication: Pulmonary embolism (Renamed from PE (pulmonary embolism)) On: :09 Request CBC WITH MANUAL DIFF (87816)Indication: Pulmonary embolism (Renamed from PE (pulmonary embolism)) On: :09 Request Vitamin D Hydroxy (71793)Indication: Vitamin D deficiency, unspecified On: :09 Request Vitamin D Hydroxy (54409)Indication: Vitamin D deficiency, unspecified On: 7-Flk-349935:43 Request CBC WITH MANUAL DIFF (36304)Indication: Anemia, unspecified On: 18-Tbv-169642:22 Request LDH (LD) (LACTATE DEHYDROGENASE) (01176)Indication: Elevated LFTs On: 95-Nss-783707:22 Request Urinalysis, Office (28784)Indication: Low back pain (Renamed from LBP (low back pain)) On: 2-Itv-560893:43 Request Vitamin D Hydroxy (20753)Indication: vit d def On: 34-Cee-408885:11 Request Vitamin D Hydroxy (17804)Indication: vit d def On: 7-Xuf-391439:14 Request LIPID PANEL (66640)Indication: Well woman exam On: 81-Pqh-192020:58 Request METABOLIC PANEL, COMPREHENSIVE (17831)Indication: Osteopenia of multiple sites On: :58 Request CBC WITH MANUAL DIFF (02330)Indication: Osteopenia of multiple sites On: :58 Request Vitamin D Hydroxy (55367)Indication: Osteopenia of multiple sites On: :56 Request TSH (13605)Indication: Osteopenia of multiple sites On: :55 Request VITAMIN B-12 (CYANOCOBALAMIN) (46066)Indication: Paresthesia On: :55 Request Planned Encounters Medical; [facility] 4 Month Fu - On: 06-Nov-2018 13:30 [facility] Fast DO, Isabella A Fast DO, Isabella A Planned Procedures Nerve ConductionBy: Fast DO, Isabella A On: 02-Jul-2018 Intent Fast DO, Isabella A Comments: both legs EMGBy: Fast DO, Isabella A Fast DO, On: 02-Jul-2018 Intent Isabella A Comments: both legs Flu Vaccine (Quadrivalent) 47143Ul: On: 02-Jul-2018 Intent Fast DO, Isabella A Fast DO, Isabella A Comments: Lot #[id number]-L dltd, IMDose prefilled syringegiven by: AyeshaHerman reviewed and ABN signed ELECTROCARDIOGRAM, COMPLETE (ECG) On: 02-Jul-2018 Intent (91085)By: Fast DO, Isabella A Fast DO, Comments: ekg showed normal sinus rhythym, normal axis, no acute st/t wave changes Isabella A Ultrasound - ThyroidBy: Fast DO, On: 30-Mar-2018 Intent Isabella A Fast DO, Isabella A SCREENING DIGITAL TOMOSYNTHESIS OF On: 30-Mar-2018 Intent BREAST (32019)By: Fast DO, Isabella A Fast DO, Isabella A Ultrasound - ThyroidBy: Fast DO, On: 24-Nov-2017 Intent Isabella A Fast DO, Isabella A Comments: end december SCREENING DIGITAL TOMOSYNTHESIS OF On: 24-Nov-2017 Intent BREAST (49160)By: Fast DO, Isabella A Fast DO, Isabella A ELECTROCARDIOGRAM, COMPLETE (ECG) On: 19-Jul-2017 Intent (31663)By: Fast DO, Isabella A Fast DO, Comments: ekg showed normal sinus rhythym, normal axis, no acute st/t wave changes prolonged qt unchanged Isabella A Ultrasound - ThyroidBy: Fast DO, On: 13-Dec-2016 Intent Isabella A Fast DO, Isabella A Comments: due 01/17 SCREENING DIGITAL TOMOSYNTHESIS OF On: 13-Dec-2016 Intent BREAST (82083)By: Fast DO, Isabella A Comments: due 01/17 Fast DO, Isabella A MRI OF BRAIN WITH AND WITHOUT On: 19-Aug-2016 Intent CONTRAST (49180)By: Fast DO, Isabella A Fast DO, Isabella A Nerve ConductionBy: Fast DO, Isabella A On: 19-Aug-2016 Intent Fast DO, Isabella A Comments: right arm EMGBy: Fast DO, Isabella A Fast DO, On: 19-Aug-2016 Intent Isabella A Comments: right arm DEXA SCAN AXIAL SKELETON (09720)By: On: 19-Aug-2016 Intent Fast DO, Isabella A Fast DO, Isabella A Flu Vaccine (Quadrivalent) 17177Nt: On: 19-Aug-2016 Intent Fast DO, Isabella A Fast DO, Isabella A Comments: Lot:[id number]:01/27/17Dose:0.5mLRoute:IMSite:L DltdGiven By:VLAD signed ADMINISTRATION OF INFLUENZA VIRUS On: 19-Aug-2016 Intent VACCINE (G0008)By: Fast DO, Isabella A Fast DO, Isabella A PNEUM VAC ADLT/IMUMNOSPR, SBC/INTRM On: 06-Jul-2016 Intent (33303)By: Fast DO, Isabella A Fast DO, Comments: Lot:[id number]:12/03/17Dose:0.5mgRoute:imSite:l armGiven By:VLAD signed Isabella A MAMMOGRAM, SCREENING, BOTH BREAST On: 04-Sep-2015 Intent (76216)By: Fast DO, Isabella A Fast DO, Isabella A Ultrasound - ThyroidBy: Fast DO, On: 04-Sep-2015 Intent Isabella A Fast DO, Isabella A MAMMOGRAM, SCREENING, BOTH BREAST On: 28-Apr-2015 Intent (35543)By: Fast DO, Isabella A Fast DO, Comments: end apr Isabella A Flu Vaccine (Quadrivalent) 66437Ht: On: 28-Apr-2015 Intent Fast DO, Isabella A Fast DO, Isabella A Comments: Lot #:[id number] date: 12/2015Amount given:prefilled syringeSite given:L Dltd, IMGiven by: LUZ Olson and ABN signed ADMINISTRATION OF INFLUENZA VIRUS On: 28-Apr-2015 Intent VACCINE (G0008)By: Fast DO, Isabella A Fast DO, Isabella A Overnight Pulse OX (85015)By: Luis Alberto On: 02-Mar-2015 Intent DO, Isabella A Fast DO, Isabella A Comments: gave overnight paulse ox to pt with new batteries. Explained to patient how it worked and had her demonstrate it back to me so I knew she was aware. Told patient to bring back before noon if possible on 03/02/15. EKG (37682)By: Luis Alberto DO, Isabella A On: 26-Dec-2014 Intent Fast DO, Isabella A Comments: ekg showed normal sinus rhythym, normal axis, no acute st/t wave changes OtherBy: Fast DO, Isabella A Fast DO, On: 02-Sep-2014 Intent Isabella A Comments: sleep study Overnight Pulse OX (67406)By: Luis Alberto On: 29-Aug-2014 Intent DO, Isabella A Fast DO, Isabella A Ultrasound - ThyroidBy: Fast DO, On: 29-Aug-2014 Intent Isabella A Fast DO, Isabella A Prevnar 13 (05939)By: Loki MARIA, On: 30-May-2014 Intent Sindy Comments: [id number] arm, IMAS Overnight Pulse OX (94244)By: Luis Alberto On: 30-May-2014 Intent DO, Isabella A Fast DO, Isabella A Comments: On 2 Liters at night Given monitor A Overnight Pulse OX (44283)By: Luis Alberto On: 23-May-2014 Intent DO, Isabella A Fast DO, Isabella A FLU VAC, SPLIT, >3 YEARS, INTRAMUSC On: 23-May-2014 Intent (50086)By: Luis Alberto DO, Isabella A Fast DO, Comments: Lot #:[id number] date:03/2016Amount given:0.5mlRoute: IMSite given: left deltoidGiven by: SCOUT Merritt ADMINISTRATION OF INFLUENZA VIRUS On: 23-May-2014 Intent VACCINE (G0008)By: Luis Alberto DO, Isabella A Fast DO, Isabella A DEXA SCAN AXIAL SKELETON (09523)By: On: 11-Apr-2014 Intent Fast DO, Isabella A Fast DO, Isabella A MAMMOGRAM, SCREENING, BOTH BREAST On: 11-Apr-2014 Intent (03179)By: Fast DO, Isabella A Fast DO, Isabella A Overnight Pulse OX (90658)By: Fast On: 11-Apr-2014 Intent DO, Isabella A Fast DO, Isabella A Comments: 2 weeks Radiology - Lumbar SpineBy: Luis Alberto DO, On: 11-Apr-2014 Intent Isabella A Fast DO, Isabella A Overnight Pulse OX (13577)By: Fast On: 07-Apr-2014 Intent DO, Isabella A Fast DO, Isabella A Six Minute Walk Assessment On: 20-Mar-2014 Intent (64216)By: Fast DO, Isabella A Fast DO, Isabella A MAMMOGRAM, SCREENING, BOTH BREASTS On: 12-Aug-2013 Intent (36101)By: Fast DO, Isabella A Fast DO, Isabella A DXA, BONE DENSITY, AXIAL SKELETON On: 12-Aug-2013 Intent (48593)By: Fast DO, Isabella A Fast DO, Isabella A Aerosol Treatment (61675)By: Jalil On: 03-Jun-2013 Intent UNIVERSITY SERVICES PROGRAM ASSOCIATE, Emelyn Eprescribed prescriptions (G8553)By: On: 03-Jun-2013 Intent Long CONSERVATION OR HERITAGE ARCHITECT, Ny L MAMMOGRAM, SCREENING, BOTH BREASTS On: 06-May-2013 Intent (59463)By: Luis Alberto DO, Isabella A Fast DO, Comments: aug Isabella A DXA, BONE DENSITY, AXIAL SKELETON On: 06-May-2013 Intent (94737)By: Fast DO, Isabella A Fast DO, Comments: due in aug Isabella A Ultrasound - ThyroidBy: Fast DO, On: 06-May-2013 Intent Isabella A Fast DO, Isabella A FLU VAC, SPLIT, >3 YEARS, INTRAMUSC On: 06-May-2013 Intent (30492)By: Merna Hinojosa Comments: Lot #:[id number] date:mount given:0.5mlRoute: IMSite given: L dltdVIS and ABN signedGiven by: SCOUT Merritt ADMINISTRATION OF INFLUENZA VIRUS On: 06-May-2013 Intent VACCINE (G0008)By: Merna Hinojosa Spirometry (64502)By: Luis Alberto ARCHULETA, On: 20-Aug-2012 Intent Isabella A Fast DO, Isabella A Comments: good effort and curve improve over previous Eprescribed prescriptions (G8553)By: On: 20-Aug-2012 Intent Fast DO, Isabella A Fast DO, Isabella A Pulse Oximetry (72802)By: Luis Alberto ARCHULETA, On: 20-Aug-2012 Intent Isabella A Fast DO, Isabella A Aerosol Treatment (26810)By: Fast On: 20-Aug-2012 Intent DO, Isabella A Fast DO, Isabella A MAMMOGRAM, SCREENING, BOTH BREASTS On: 30-May-2012 Intent (44723)By: Luis Alberto ARCHULETA Isabella A Fast DO, Comments: jul Isabella A ADMINISTRATION OF INFLUENZA VIRUS On: 30-May-2012 Intent VACCINE (G0008)By: Merna Hinojosa Comments: Lot #[id number]-L dltd, IMDose prefilled syringegiven by:SHARYN Hester signed FLU VAC, SPLIT, >3 YEARS, INTRAMUSC On: 30-May-2012 Intent (20959)By: Merna Hinojosa EKG (46640)By: Luis Alberto DO, Isabella A On: 14-Mar-2012 Intent Fast [...] MAMMOGRAM, SCREENING, BOTH BREASTS On: 27-Jun-2011 Intent (82908)By: Fast DO, Isabella A Fast DO, Isabella A CT - ChestBy: Fast DO, Isabella A Fast On: 27-Jun-2011 Intent DO, Isabella A DXA, BONE DENSITY, AXIAL SKELETON On: 27-Jun-2011 Intent (91512)By: Luis Alberto ARCHULETA, Isabella A Fast DO, Isabella A FLU VAC, SPLIT, >3 YEARS, INTRAMUSC On: 05-May-2011 Intent (96820)By: Nieves Valdez LPN Comments: Lot #[id number]/20/12Site-left deltoidgiven by: Saul Valdez LPN IMMUNIZ ADMNIN, 1 VAC, SNGL/COMBO On: 05-May-2011 Intent (05756)By: Nieves Valdez LPN Aerosol Treatment (18181)By: Ciesa On: 15-Dec-2010 Intent UNIVERSITY SERVICES PROGRAM ASSOCIATE, Emelyn Inhaler Demo (48214)By: Luis Alberto ARCHULETA, On: 05-Jul-2010 Intent Isabella A Luis Alberto DO, Isabella A DXA, BONE DENSITY, AXIAL SKELETON On: 05-Jul-2010 Intent (92864)By: Chetan Peacock DOa A Fast DO, Comments: julya A CT - ChestBy: Chetan Peacock DOa A Fast On: 01-Mar-2010 Intent DO Isabella A Comments: pe protocol- mid sept MAMMOGRAM, SCREENING, BOTH BREASTS On: 01-Mar-2010 Intent (86984)By: Luis Alberto ARCHULETA, Isabella A Fast DO, Isabella A PFT - CompleteBy: Luis Alberto DO Isabella A On: 01-Mar-2010 Intent Luis Alberto DO Isabella A Nuclear Stress Test/Stress On: 07-Oct-2009 Intent SPECT/AdenosineBy: Fast DO, Isabella A Fast DO, Isabella A EKG (95232)By: Luis Alberto ARCHULETA Isabella A On: 07-Oct-2009 Intent Fast DO Isabella A Comments: ekg showed normal sinus rhythym, normal axis, no acute st/t wave changes Pulse Oximetry (85432)By: Luis Alberto ARCHULETA, On: 02-Sep-2009 Intent Isabella A Fast DO, Isabella A Comments: 97% Venous Doppler - LowerBy: Luis Alberto ARCHULETA, On: 02-Sep-2009 Intent Isabella A Fast DO, Isabella A Comments: stat today call wet read Pulse Oximetry (80514)By: Jalil NAGEL, On: 04-Aug-2009 Intent Regine Meyers Aerosol Treatment (84528)By: Jalil On: 04-Aug-2009 Intent Regine NAGEL PNEUM VAC ADLT/IMUMNOSPR, SBC/INTRM On: 11-May-2009 Intent (78254)By: Sivan Yung Comments: Lot #[id number]-right deltoidDose0.5mlgiven by Harpal Yung LPN ADMINISTRATION OF PNEUMOCOCCAL On: 11-May-2009 Intent VACCINE (G0009)By: Sivan Yung FLU VAC, SPLIT, >3 YEARS, INTRAMUSC On: 11-May-2009 Intent (35315)By: Sivan Yung Comments: Lot #[id number]-left deltoidDose0.5mlgiven by Harpal Yung LPN ADMINISTRATION OF INFLUENZA VIRUS On: 11-May-2009 Intent VACCINE (G0008)By: Sivan Yung Nerve ConductionBy: Fast DO, Isabella A On: 08-Jul-2008 Intent Fast DO, Isabella A Comments: right arm/ left leg EMGBy: Fast DO, Isabella A Fast DO, On: 08-Jul-2008 Intent Isabella A Comments: right arm/left leg MAMMOGRAM, SCREENING, BOTH BREASTS On: 09-Jun-2008 Intent (25531)By: Fast DO, Isabella A Fast DO, Isabella A DXA, BONE DENSITY, AXIAL SKELETON On: 09-Jun-2008 Intent (84430)By: Fast DO Isabella A Fast DO, Comments: aug 08 Isabella A THER/PROPH/DIAG INJ, SC/IM On: 28-Jan-2008 Intent (93884)By: Merna Hinojosa TETANUS VAC, ADSORBED, INTRAMUSC On: 28-Jan-2008 Intent (87188)By: Merna Hinojosa Comments: Lot #:[id number] date:mount given:0.5mlRoute:IM Site given:left deltoidGiven by: SCOUT Merritt Instructions Name Dates Details [facility] WELLNESS EXAM : How to access [...] Scanned Document is available upon request. 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 Patient has been compliant with instructions. [facility] End: 13-Dec-2016 9:44 t medication use: no [...] needs rx is using- did go to [place] for followup- does help her sleep-getting her [...] with sleepping with bipap has followup with dry yard worker in december - saw barry and he [...] vitamins and low salt diet. The medi christi issues the patient is following up for [...] scanty. The cough occurs mostly in the gear and spline grinder. The symp End: 04-Aug-2009 13:28 toms have [...] or difficulty arising from chair. Note for Tmami frazier Pain: left knee arthroscopy 2004- for torn [...] well. Patient has been compliant with instructions. Cu End: 15-Oct-2008 10:22 rrent medication use: no [...] at end of fingers and toes -- rig End: 08-Jul-2008 22:34 t hand and left [...] 12:04 [facility] End: 04-Jan-2007 12:12 [facility]/Stacy MARVIN; a guarantor
--- OUTSIDE RECORDS SUMMARY | 2018-10-23 09:23 | XMS RPT_ITS | Continuity of Care Document ---
:1945 External Reference #:[id number] Author Organization [facility] Address [address] [facility] [address] [place] [address] Phone Care Team Providers Name Role Phone Isabella Peacock DO Unavailable Tomer BRADLEY, Dr. Enoc Marcano Unavailable Merna Hinojosa Unavailable Unavailable LILI Michel Unavailable Unavailable Swati Bauer Unavailable Unavailable Soil Chemist, System Unavailable Unavailable Unavailable Unavailable Problems Name [...] : 15-Dec-2010 End : 27-Jun-2011 Inactive DRISDOL, 79668BFSG (Oral Capsule) 1 Capsule Weekly for 0 days Quantity: 4 {Capsule} Refills: 3 Ordered:27-Jun-2011 Merna Hinojosa Start : 05-Jul-2010 End : 27-Jun-2011 Inactive ERGOCALCIFEROL, 49586EWOY (Oral Capsule) 1 (one) Capsule twice a [...] Quantity: 30 {Tablet} Refills: 3 Ordered:24-Mar-2017 Long HIDE AND SKIN CLASSERNy Lira Start : 28-Jan-2015 End : 24-Mar-2017 [...] End : 06-May-2013 Discontinued VITAMIN D (ERGOCALCIFEROL), 85779ZGKP (Oral Capsule) 1 Capsule q week for 0 days Quantity: 12 {Capsule} Refills: 3 Ordered:06-May-2013 Fast DO, Isabella AFast DO, Isabella A Start : 06-May-2013 End : 06-May-2013 Discontinued VITAMIN D, 63902FPJG (Oral Capsule) 1 Weekly for 0 days [...] boyfriend has witnessed this multiple times at [facility] sleep study to evaluate had abnormal overnight [...] (CAD), BILAT Result: Comments: See Note; NOTES: [facility] Imaging Services [address] [place] [address] SCREENING MAMM (CAD), BILAT MR#: [id number] Acct: [id number] Name: KERI MARVIN Rep #: [id number] : 1945 F 72 From: Samuel Leal MD PCP: Isabella Peacock DO Status: REG CLI Study: SCREENING MAMM (CAD), BILAT Date of Exam: 05/30/18 Exam# [id number] Ordering Dr: Isabella Peacock DO MAMMOG UCHE [...] delay biopsy of a clinically suspicious abnormality. [id number] Electronically Signed: Samuel Leal MD at 9:52 EDT Tel [phone], Klone Labic e support , CC: Isabella Peacock DO Assessment Manager: Signed 30-May-2018 Thyroid Result: Comments: See Note; NOTES: [facility] Imaging Services [address] [place] [address] Thyroid MR#: [id number] Acct: [id number] Name: KERI MARVIN Rep #: [id number] : [birth year] F 72 From: Timbo Phillips DO PCP: Isabella Peacock DO Status: REG CLI Study: Thyroid Date of Exam: 05/30/18 Exam# [id number] Ordering Dr: Isabella Peacock DO STUDY: THYROID [...] Service support , CC: Isabella Peacock DO Assessment Manager: Signed 27-Jan-2017 SCREENING MAMM (CAD), BILAT Result: Comments: See Note; NOTES: [facility] Imaging Services [address] [place] [address] Verdana 4d SCREENING MAMM (CAD), BILAT MR#: [id number] Acct: [id number] Name: KERI MARVIN Rep #: [id number] : 1945 F 71 From: Samuel Leal MD PCP: Isabella Peacock DO Status: REG CLI Study: SCREENING MAMM (CAD), BILAT Date of Exam: 01/27/17 Exam# [id number] Ordering Dr: Isabella Peacock DO MAMMOGRAPHY - [...] delay biopsy of a clinically suspicious abnormality. [id number] Electronically Signed: Samuel Leal MD at 10:52 ED T Tel [phone], Service support , CC: Isabella Peacock DO Assessment Manager: Signed 27-Jan-2017 Thyroid Result: Comments: See Note; NOTES: [facility] Imaging Services [address] [place] [address] Stefan 4d Thyroid MR#: [id number] Acct: [id number] Name: KERI MARVIN Rep #: [id number] D OB: 1945 F 71 From: Merna Solomon MD PCP: Isabella Peacock DO Status: REG CLI Study: Thyroid Date of Exam: 01/27/17 Exam# [id number] Ordering Dr: Isabella Peacock DO STUDY: THYROID [...] Merna Solomon MD at 0:00 EDT Tel [phone], Service support , Fax CC: Isabella Peacock DO Assessment Manager: Signed 21-Sep-2016 NCS and/or EMG Patient Result: Comments: See Note; NOTES: [facility] Pulmonary Services/Neurology [address] [place] [address] NCS and/or EMG Patient MR#: [id number] Acct: [id number] Name: KERI MARVIN Rep #: [id number] : 1945 71 From: Donte Daniesl MD Referring Dr: Isabella Peacock DO Status: REG CLI Ordering Dr: Isabella Peacock DO Date: 09/20/16 Location: [facility] Sex: F C DATE OF SERVICE: [...] elbow. Donte mcgee MD T: NTS JOB: [id number] 09/21/16 1036 <Electronically signed by Donte Daniels MD> Date Donte Daniels MD CC: Isabella Peacock DO; Kerry Daniels MD Date Dictated: 09/20/16 1016 Date Transcribed: 09/20/16 1016 Assessment Manager: Signed 30-Aug-2016 Dexa Bone Density Study () Result: Comments: See Note; NOTES: [facility] Imaging Services [address] [place] [address] Verdana 4d Dexa Bone Density Study () MR#: [id number] Acct: [id number] Name: SCOUTDARYLKERI K Rep #: [id number] : 1945 F 71 From: Samuel Leal MD PCP: Isablela Peacock DO Status: [facility] CLI Study: Dexa Bone Density Study () Date of Exam: 08/30/16 Exam# [id number] Ordering Dr: Geni Peacock ra, DO STUDY: [...] Samuel Leal MD at 9:49 EST Tel [phone], Service support [phone], CC: Isabella Peacock DO Assessment Manager: Signed 18-Jan-2016 Bilat Scrn Digital AND CAD Result: Comments: See Note; NOTES: [facility] Imaging Services [address] [place] [address] Verdana 4d Bilat Scrn Digital AND CAD MR#: [id number] Acct: [id number] Name: KERI MARVIN Rep #: [id number] : 1945 F 70 From: Samuel Leal MD PCP: Isabella Peacock DO Status: REG CLI Study: Bilat Scrn Digital AND CAD Date of Exam: 01/18/16 Exam# [id number] Ordering Dr: Isabella Peacock DO MAMMOGRAPHY - [...] delay biopsy of a clinically suspicious abnormality. [id number] Electronically Signed: Samuel Leal MD at 12:34 EDT Tel [phone], Service support [phone], CC: Isabella Peacock DO Assessment Manager: Signed 18-Jan-2016 Thyroid Result: Comments: See Note; NOTES: [facility] Imaging Services [address] [place] [address] Verdana 4d Thyroid MR#: [id number] Acct: [id number] Name: KERI MARVIN Rep # : [id number] : 1945 F 70 From: Samuel Leal MD PCP: Isabella Peacock DO Status: REG CLI Study: Thyroid Date of Exam: 01/18/16 Exam# [id number] Ordering Dr: Isabella Peacock DO STUDY: THYROID [...] Samuel Leal MD at 13:18 EDT Tel [phone], Service support [phone], CC: Isabella Peacock DO Assessment Manager: Signed 10-Oct-2014 Sleep Study Report Result: Comments: See Note; NOTES: [facility] [address] [place] [address] Polysomnography with NCPAP MR#: [id number] Acct: [id number] Name: KERI MARVIN Rep #: [id number] : 1945 69 From: Donte Daniels MD PCP: Isabella Peacock DO Status: REG CLI Ordering Dr.: Isabella Peacock DO Date: 10/08/14 Sex: F C REFERRING PHYSICIAN: Dr. Peacock. SLEEP HIS TORY: This is a CPAP titration study performed on this 69-year-old female with a body mass index of 26.9 and an [place] Sleepiness Scale score of 14. History includes [...] The study was attended continuously by a traffic survey technician. Monitored parameters included left and right [...] Study Report Result: Comments: See Note; NOTES: [facility] [address] [place] [address] Polysomnography MR#: [id number] Acct: [id number] Name: KERI MARVIN Rep #: [id number] : 1945 69 From: Donte Daniels MD PCP: Isabella Peacock DO Status: REG CLI Ordering Dr.: Isabella Peacock DO Date: 09/22/14 Sex: F C REFERRING PHYSICIAN: Dr. Isabella Peacock. SLEEP HISTORY: This is a diagnostic polysomnogram performed on this 69-year-old female with a body mass index of 26.9 and an [place] Sleepiness Scale score of 14. There was [...] version). Please note that a reference to [facility] AHI in this re port is consistent with the current Hypopnea definition according to Medicare Criteria and an AASM AHI reference is consistent with the current Hypopnea definition according to the AASM criteria. ND OCEDURE: The study was attended continuously by a traffic survey technician. Monitored parameters included left and right [...] 05-Sep-2014 Thyroid Result: Comments: See Note; NOTES: [facility] Imaging Services [address] [place] [address] Ultrasound Report MR#: [id number] Acct: [id number] Name: KERI MARVIN Rep #: [id number] : 1945 F 69 From: Samuel Leal MD PCP: Isabella Peacock DO Status: REG CLI Study: Thyroid Date of Exam: 09/05/14 Exam# [id number] Ordering Dr: Isabella Peacock DO STUDY: THYROID [...] 1.6 cm x 1.4 cm. Electronically Sig smiran: Samuel Leal MD at 14:33 EST Tel [phone], Service support [phone], CC: Isabella Peacock DO Assessment Manager: Signed 22-May-2014 Dexa Bone Density Study (HP) Result: Comments: See Note; NOTES: [facility] Imaging Services [address] [place] [address] Bone Density Report MR#: [id number] Acct: [id number] Name: KERI MARVIN Rep #: [id number] : 1945 F 68 From: Samuel Leal MD PCP: Isabella Peacock DO Status: REG CLI Study: Dexa Bone Density Study (HP) Date of Exam: 05/22/14 Exam# [id number] Ordering Dr: Isabella Peacock DO STUDY: DUAL [...] Samuel Leal MD at 15:59 EDT Tel [phone], Service support [phone], CC: Isabella Peacock DO Assessment Manager: Signed 16-May-2014 PT Discharge Summary Result: Comments: See Note; NOTES: [facility] [place] [address] Fax REHABILITATION SERVICES DISCHARGE SUMMARY MR#: [id number] Acct: [id number] Name: KERI MARVIN Rep #: [id number] : 1945 68 From: Cyndy Damon Referring [...] little achy at times. Oswestry was 0%, C2089-QW , Q6877-MI. She plans to follow up with Dr. Peacock on May 23, 2014. I am discharging her from formal physical therapy and she is agreeable to discharge. Cyndy Damon, PT T: NTS JOB: [id number] <Electronically signed by Cyndy Damon > 05/16/14 1034 CC: Signed 11-Apr-2014 L/S Spine Min 4 Views Result: Comments: See Note; NOTES: [facility] Imaging Services [address] [place] [address] Radiology Report MR#: [id number] Acct: [id number] Name: KERI MARVIN Rep #: [id number] : 1945 F 68 From: Denise Cardoza MD PCP: Isabella Peacock DO Status: REG CLI Study: L/S Spine Min 4 Views Date of Exam: 04/11/14 Exam# [id number] Ordering Dr: Isabella Peacock DO STUDY: X-RAY [...] Vivienne Cardoza MD at 11:36 EDT Tel [phone], Service support [phone], Fax CC: Isabella Peacock DO Assessment Manager: Signed 20-Mar-2014 Spirometry (23349) Result: 01-Jul-2013 Thyroid Result: Comments: See Note; NOTES: [facility] Imaging Services [address] [place] [address] Ultrasound Report MR#: [id number] Acct: [id number] Name: KERI MARVIN Rep #: [id number] : 1945 F 68 From: Fredis Aguirre MD PCP: Isabella Peacock DO Status: REG CLI Study: Thyroid Date of Exam: 07/01/13 Exam# [id number] Ordering Dr: Isabella Peacock DO STUDY: THYROID [...] M.D. at 11:55 EST , Service support [phone], CC: Isabella Peacock DO Assessment Manager: Signed Immunization Name Dates Details Influenza (3 years and up) on: 11-May-2009 Comments: Lot #[id number]-left deltoidDose0.5mlgiven by Harpal Yung LPN Pneumococcal (2 years and up) on: 11-May-2009 Comments: Lot #[id number]-right deltoidDose0.5mlgiven by Harpal Yung LPN Tetanus on: 28-Jan-2008 Comments: Lot #:[id number] date:mount given:0.5mlRoute:IM Site given:left deltoidGiven by: SCOUT Merritt Family History Unknown Family Member Name Dates Details Brother 1 Comments: hx postpolio sx Status: Active Father Comments: at 77, had sleep apnea, [place], glaucoma Status: Active Mother Comments: Osteopenia, hearty [...] 0.00 cm Results Date Description Value Details 48-Udy-659371:47 CBC with auto diff Comments: PATIENT NOT FASTINGPERFORMED BY: PRANEETH Sport Telegr[facility]ill [facility] [id number] Information: NURSE DRAW (87000) Immature Grans (Abs) 0.0 {x10E3/uL} (Normal) Range: [...] 3.77-5.28 WBC 6.8 {x10E3/uL} (Normal) Range: 3.4-10.8 45-Ypx-106187:47 METABOLIC PANEL, COMPREHENSIVE Comments: PATIENT NOT FASTINGPERFORMED BY: PRANEETH Sport Telegramrp [employer] [place] [id number]; fu 07-02-18 DF (51964) ALT (SGPT) 21 [iU]/L (Normal) Range: 0-32 [...] 8-27 Glucose 99 mg/dL (Normal) Range: 65-99 31-Gdj-76957:38 LIPID PANEL (56174) Comments: PATIENT WAS FASTINGPERFORMED BY: PRANEETH [facility] Frmssg9930 [facility] [id number] LDL/HDL Ratio 1.4 {ratio} (Normal) Range: 0.0-3.2 [...] Range: 100-199 :38 CBC with auto diff (56584) Comments: PATIENT WAS FASTINGPERFORMED BY: Sport TelegramInscription House Health CenterHeoccw8462 [facility] [id number] Immature Grans (Abs) 0.0 {x10E3/uL} (Normal) Range: [...] PANEL, COMPREHENSIVE Comments: PATIENT WAS FASTINGPERFORMED BY: Sport TelegramInscription House Health CenterGcrofs2154 [facility] [id number] (99167) ALT (SGPT) 20 [iU]/L (Normal) Range: 0-32 [...] mg/dL (Normal) Range: 65-99 :38 HGB A1C (68818) Comments: PATIENT WAS FASTINGPERFORMED BY: Sport TelegramInscription House Health CenterTasbok7929 [facility] [id number] Hemoglobin A1c 5.6 % (Normal) Range: 4.8-5.6 Comments: . Prediabetes: 5.7 - 6.4 Diabetes: >6.4 Glycemic control for adults with diabetes: <7.0 :38 TSH (92475) Comments: PATIENT WAS FASTINGPERFORMED BY: Sport TelegramVirtua Our Lady of Lourdes Medical CenterVmtgyl1478 [facility] [id number] TSH 1.990 {uIU/mL} (Normal) Range: 0.450-4.500 :38 Vitamin D Hydroxy (16518) Comments: PATIENT WAS FASTINGPERFORMED BY: GeneAssessCorewell Health [facility]6370 [facility] [id number] Vitamin D, 25-Hydroxy 57.3 ng/mL (Normal) Range: 30.0-100.0 Comments: Vitamin D deficiency has been defined by the [place] of[place]icine and an Endocrine Society practice guideline as alevel of serum 25-OH vitamin D less than 20 ng/mL (1,2).The Endocrine Society went on to further define vitamin Dinsufficiency as a level between 21 and 29 ng/mL (2).1. IOM ([place] of Medicine). 2010. Dietary reference intakes for calcium and D. Fu [place]: The National Academies Press.2. Castillo MF, Yocasta SHABAZZ, Jerri MACIEL, et al. Evaluation, treatment, and prevention of vitamin D deficiency: an Endocrine Society clinical practice guideline. JCEM. 2010; 96(7):1911-30. 68-Lqg-66138:10 LIPID PANEL (45095) Comments: PATIENT WAS FASTINGPERFORMED BY: LabKROGNI Klbjkk6398 [facility] [id number] LDL/HDL Ratio 1.4 {ratio} (Normal) Range: 0.0-3.2 [...] Range: 100-199 :10 CBC with auto diff (91029) Comments: PATIENT WAS FASTINGPERFORMED BY: LabCo Anzhxc0065 [facility] [id number] Immature Grans (Abs) 0.0 {x10E3/uL} (Normal) Range: [...] CREATININE RATIO Comments: PATIENT WAS FASTINGPERFORMED BY: Sport Telegram [employer] [facility] [id number] (94705) AND (77783) Alb/Creat Ratio 24.8 {mg/g_creat} (Normal) Range: 0.0-30.0 Albumin, Urine 29.2 ug/mL (Normal) Creatinine, Urine 117.6 mg/dL (Normal) :10 METABOLIC PANEL, COMPREHENSIVE Comments: PATIENT WAS FASTINGPERFORMED BY: Sport TelegramVirtua Our Lady of Lourdes Medical CenterKtapoy1102 [facility] [id number] (20310) ALT (SGPT) 19 [iU]/L (Normal) Range: 0-32 [...] 8-27 Glucose 86 mg/dL (Normal) Range: 65-99 44-Xku-82958:10 HGB A1C (19833) Comments: PATIENT WAS FASTINGPERFORMED BY: NextinitVirtua Our Lady of Lourdes Medical CenterMhozry6627 [facility] [id number] Hemoglobin A1c 5.8 % (Abnormal) Range: 4.8-5.6 Comments: . Pre-diabetes: 5.7 - 6.4 Diabetes: >6.4 Glycemic control for adults with diabetes: <7.0 7-Smo-405680:25 CBC W/AUTO DIFF WBC Comments: PERFORMED BY: NextinitVirtua Our Lady of Lourdes Medical CenterKjburg[address] [place] [address] [id number] Information: CLIENT DRAW (99416) Immature Grans (Abs) 0.0 {x10E3/uL} (Normal) Range: [...] (THYROID STIMULATING Comments: PATIENT WAS FASTINGPERFORMED BY: LabCoVirtua Our Lady of Lourdes Medical CenterAcvgtc9474 [facility] [id number] HORMONE) (08693) TSH 1.550 {uIU/mL} (Normal) Range: 0.450-4.500 :12 METABOLIC PANEL, COMPREHENSIVE Comments: PATIENT WAS FASTINGPERFORMED BY: LabCoVirtua Our Lady of Lourdes Medical CenterBepjed2731 [facility] [id number] (90553) ALT (SGPT) 14 [iU]/L (Normal) Range: 0-32 [...] mg/dL (Normal) Range: 65-99 :12 HGB A1C (03845) Comments: PATIENT WAS FASTINGPERFORMED BY: RollerECU [facility] [id number] Hemoglobin A1c 5.8 % (Abnormal) Range: 4.8-5.6 Comments: . Pre-diabetes: 5.7 - 6.4 Diabetes: >6.4 Glycemic control for adults with diabetes: <7.0 :12 Vitamin D Hydroxy (44932) Comments: PATIENT WAS FASTINGPERFORMED BY: Happy Cosas70 ActiveReplayECU Health [facility] Hospital [id number] Vitamin D, 25-Hydroxy 43.2 ng/mL (Normal) Range: 30.0-100.0 Comments: Vitamin D deficiency has been defined by the [place] of[place]icine and an Endocrine Society practice guideline as alevel of serum 25-OH vitamin D less than 20 ng/mL (1,2).The Endocrine Society went on to further define vitamin Dinsufficiency as a level between 21 and 29 ng/mL (2).1. IOM ([place] of Medicine). 2010. Dietary reference intakes for calcium and D. Fu [place]: The National Academies Press.2. Castillo MF, Yocasta SHABAZZ, Jerri MACIEL, et al. Evaluation, treatment, and prevention of vitamin D deficiency: an Endocrine Society clinical practice guideline. JCEM. 2010; 96(7):1911-30. 48-Ltx-21279:12 LIPID PANEL (77890) Comments: PATIENT WAS FASTINGPERFORMED BY: Happy Cosas70 [facility] [id number]; elen review on 03/24 LDL/HDL Ratio 1.6 [...] Cholesterol, Total 176 mg/dL (Normal) Range: 100-199 29-Kqx-148252:46 Vitamin D Hydroxy (58681) Comments: PATIENT WAS FASTINGPERFORMED BY: Red Blue Voice6370 [facility] [id number] Vitamin D, 25-Hydroxy 40.8 ng/mL (Normal) Range: 30.0-100.0 Comments: Vitamin D deficiency has been defined by the [place] of[place]icine and an Endocrine Society practice guideline as alevel of serum 25-OH vitamin D less than 20 ng/mL (1,2).The Endocrine Society went on to further define vitamin Dinsufficiency as a level between 21 and 29 ng/mL (2).1. IOM ([place] of [place]). 2010. Dietary reference intakes for calcium and D. Fu [place]: The National Academies Press.2. Castillo MF, Yocasta NC, Jerri MACIEL, et al. Evaluation, treatment, and prevention of vitamin D deficiency: an Endocrine Society clinical practice guideline. JCEM. 2010; 96(7):1911-30. 96-Ytf-923925:46 LIPID PANEL (82326) Comments: PATIENT WAS FASTINGPERFORMED BY: SOV [employer]70 [facility] [id number] LDL/HDL Ratio 1.9 {ratio_units} (Normal) Range: 0.0-3.2 Comments: LDL/HDL Ratio Men Women 1/2 Avg.Risk 1.0 1.5 Av g.Risk 3.6 3.2 2X Avg.Risk 6.2 5.0 3X Avg.Risk 8.0 6.1 LDL Cholesterol Calc 101 mg/dL (Abnormal) Range: 0-99 VLDL Cholesterol Christi 13 mg/dL (Normal) Range: 5-40 HDL Cholesterol 53 mg/dL (Normal) Triglycerides 65 mg/dL (Normal) Range: 0-149 Cholesterol, Total 167 mg/dL (Normal) Range: 100-199 47-Nep-432755:46 MICROALBUMIN: CREATININE RATIO Comments: PATIENT WAS FASTINGPERFORMED BY: [employer]70 [facility] [id number] (67165) AND (59151) Microalb/Creat Ratio 12.6 {mg/g_creat} (Normal) Range: 0.0-30.0 Microalbumin, Urine 4.9 ug/mL (Normal) Creatinine, Urine 38.9 mg/dL (Normal) 22-Wej-708282:46 METABOLIC PANEL, COMPREHENSIVE Comments: PATIENT WAS FASTINGPERFORMED BY: [employer]70 [facility] [id number] (49386) ALT (SGPT) 15 [iU]/L (Normal) Range: 0-32 [...] Glucose, Serum 86 mg/dL (Normal) Range: 65-99 51-Pto-458676:46 HGB A1C (43039) Comments: PATIENT WAS FASTINGPERFORMED BY: GeneAssessLatoya [place] 5282470 [facility] [id number] Hemoglobin A1c 6.0 % (Abnormal) Range: 4.8-5.6 Comments: . Pre-diabetes: 5.7 - 6.4 Diabetes: >6.4 Glycemic control for adults with diabetes: <7.0 :58 Magnesium (03126) Comments: PATIENT NOT FASTINGPERFORMED BY: GeneAssessLatoya [place] 5282470 [facility] [id number] BY: [address] [id number] Magnesium, Serum 2.2 mg/dL (Normal) Range: 1.6-2.3 :58 Vitamin B-12 (cyanocobalamin) Comments: PATIENT NOT FASTINGPERFORMED BY: GeneAssessLat[place] 5282470 [facility] [id number] BY: [address] [id number] (05024) Vitamin B12 849 pg/mL (Normal) Range: 211-946 :58 CCP ANTIBODY (59984) Comments: PATIENT NOT FASTINGPERFORMED BY: Sport TelegramVirtua Our Lady of Lourdes Medical CenterTbzdjd2454 [address] [facility] Centerbl[facility] [place] [id number] BY: [address] [id number] CCP Antibodies IgG/IgA 11 {units} (Normal) Range: 0-19 Comments: Negative <20 Weak positive 20 - 39 Moderate positive 40 - 59 Strong positive >59 :58 SED RATE ERYTHROCYTE Comments: PATIENT NOT FASTINGPERFORMED BY: Sport TelegramVirtua Our Lady [facility] L[facility] Medical CenterFnobbj7241 [facility] [id number] BY: [address] [id number] (67777) Sedimentation Rate-Westergren 2 mm/h (Normal) Range: 0-40 :58 C-REACTIVE PROTEIN (03599) Comments: PATIENT NOT FASTINGPERFORMED BY: Sport Telegram Yanehi2579 [facility] [id number] BY: [address] [id number] C-Reactive Protein, Quant 3.4 mg/L (Normal) Range: 0.0-4.9 :58 RHEUMATOID FACTOR-QUANT Comments: PATIENT NOT FASTINGPERFORMED BY: Sport Telegram Vbikzz3799 [address] [facility] Hospitalin [place] [id number] BY: [address] [id number] (77024) RA Latex Turbid. <10.0 {IU/mL} (Normal) Range: 0.0-13.9 :58 BOUBACAR (ANTINUCLEAR ANTIBODY) Comments: PATIENT NOT FASTINGPERFORMED BY: Sport Telegram Smixqv9609 [facility] [id number] BY: Sport Telegram[address] [id number] (06103) BOUBACAR Direct Negative (Normal) :58 METABOLIC PANEL, Comments: PATIENT NOT FASTINGPERFORMED BY: Sport TelegramInscription House Health CenterKvuxnm7451 [facility] [id number] BY: [address] [id number] COMPREHENSIVE (13544) ALT (SGPT) 20 [iU]/L (Normal) Range: 0-32 [...] auto diff Comments: PATIENT NOT FASTINGPERFORMED BY: Sport TelegramInscription House Health CenterEvsbly1726 [facility] [id number] BY: [facility] Qfbrumxgab0122 [facility] [id number] (74795) Immature Grans (Abs) 0.0 {x10E3/uL} (Normal) Range: [...] WBC Comments: PATIENT WAS FASTINGPERFORMED BY: [facility] Ouigjg8901 [facility] [id number] Information: [id number] (12808) Immature Grans (Abs) 0.0 {x10E3/uL} (Normal) Range: [...] PANEL, COMPREHENSIVE Comments: PATIENT WAS FASTINGPERFORMED BY: LabCoVirtua Our Lady of Lour[facility] Medical CenterWgfuxi6955 [facility] [id number] (99147) ALT (SGPT) 21 [iU]/L (Normal) Range: 0-32 [...] mg/dL (Normal) Range: 65-99 :47 LIPID PANEL (15240) Comments: PATIENT WAS FASTINGPERFORMED BY: [employer] [place] [id number]; normal and has apt LDL/HDL Ratio 1.5 [...] (Normal) Range: 100-199 :47 Vitamin D Hydroxy (68861) Comments: PATIENT WAS FASTINGPERFORMED BY: [employer] [place] [id number] Vitamin D, 25-Hydroxy 37.8 ng/mL (Normal) Range: 30.0-100.0 Comments: Vitamin D deficiency has been defined by the [place] of[place]icine and an Endocrine Society practice guideline as alevel of serum 25-OH vitamin D less than 20 ng/mL (1,2).The Endocrine Society went on to further define vitamin Dinsufficiency as a level between 21 and 29 ng/mL (2).1. IOM ([place] of Medicine). 2010. Dietary reference intakes for calcium and D. Fu [place]: The National AcademTask Messenger Press.2. Yocasta Osei, Jerri MACIEL, et al. Evaluation, treatment, and prevention of vitamin D deficiency: an Endocrine Society clinical practice guideline. JCEM. 2010; 96(7):191-. :49 Vitamin D Hydroxy (18950) Comments: PATIENT WAS FASTINGPERFORMED BY: Red [employer] Voice6370 [place] [id number] Vitamin D, 25-Hydroxy 38.7 ng/mL (Normal) Range: 30.0-100.0 Comments: Vitamin D deficiency has been defined by the [place] of[place]icine and an Endocrine Society practice guideline as alevel of serum 25-OH vitamin D less than 20 ng/mL (1,2).The Endocrine Society went on to further define vitamin Dinsufficiency as a level between 21 and 29 ng/mL (2).1. IOM ([place] of Medicine). 2010. Dietary reference intakes for calcium and D. Fu [place]: The National [employer] Press.2. Yocasta Osei, Jerri MACIEL, et al. Evaluation, treatment, and prevention of vitamin D deficiency: an Endocrine Society clinical practice guideline. JCEM. 2010; 96(7):1911-30. :49 METABOLIC PANEL, Comments: PATIENT WAS FASTINGPERFORMED BY: [facility] Vvvvds3027 FloresBeck[facility] Hospitalin [place] [id number] Information: [id number]; apt. 04-28-15 COMPREHENSIVE (54342) ALT (SGPT) 18 [iU]/L (Normal) Range: 0-32 [...] Glucose, Serum 85 mg/dL (Normal) Range: 65-99 87-Izl-04751:19 CBC With Differential/Platelet Comments: PATIENT WAS FASTINGPERFORMED BY: LabCoVirtua [facility] CenterMfbaok6285 [facility] [id number] Information: [id number] Immature Grans (Abs) 0.0 {x10E3/uL} (Normal) Range: [...] Panel (14) Comments: PATIENT WAS FASTINGPERFORMED BY: [facility] CenterBsoocg3801 [facility] [id number] ALT (SGPT) 15 [iU]/L (Normal) Range: 0-32 [...] Glucose, Serum 101 mg/dL (Abnormal) Range: 65-99 85-Jjt-68035:19 Lipid Panel With LDL/HDL Comments: PATIENT WAS FASTINGPERFORMED BY: [employer] [facility] [id number] Ratio LDL/HDL Ratio 2.2 {ratio_units} Range: 0.0-3.2 [...] 3.600 {uIU/mL} Comments: PATIENT WAS FASTINGPERFORMED BY: [employer] Kxrmly2573 [facility] [id number] 7:19 (Normal) Range: 0.450-4.500 19-Dec-2014 Vitamin D, 25-Hydroxy 32.3 ng/mL (Normal) Comments: PATIENT WAS FASTINGPERFORMED BY: [employer] Lccxxk4293 [facility] [id number] 7:19 Range: 30.0-100.0 Comments: Vitamin D deficiency has been defined by the [place] of[place]icine and an Endocrine Society practice guideline as alevel of serum 25-OH vitamin D less than 20 ng/mL (1,2).The Endocrine Society went on to further define vitamin Dinsufficiency as a level between 21 and 29 ng/mL (2).1. IOM ([place] of Medicine). 2010. Dietary reference intakes for calcium and D. Fu [place]: The National Academies Press.2. Castillo MF, Yocasta SHABAZZ, Jerri MACIEL, et al. Evaluation, treatment, and prevention of vitamin D deficiency: an Endocrine Society clinical practice guideline. JCEM. 2010; 96(7):1911-30. 38-Skd-006196:09 CBC W/AUTO DIFF WBC Comments: PATIENT NOT FASTINGPERFORMED BY: [facility] Gpqlib7952 [facility] [id number] Information: [id number] (18118) Immature Grans (Abs) 0.0 {x10E3/uL} (Normal) Range: [...] 3.77-5.28 WBC 6.7 {x10E3/uL} (Normal) Range: 3.4-10.8 99-Pvf-690909:09 METABOLIC PANEL, COMPREHENSIVE Comments: PATIENT NOT FASTINGPERFORMED BY: [employer] Zijxhu9490 [facility] [id number] (54301) ALT (SGPT) 16 [iU]/L (Normal) Range: 0-32 [...] Glucose, Serum 81 mg/dL (Normal) Range: 65-99 37-Ywv-914513:09 LIPID PANEL (40617) Comments: PATIENT NOT FASTINGPERFORMED BY: Sport TelegramVirtua [facility] CenterVghkcj2960 [facility] [id number] LDL/HDL Ratio 2.1 {ratio_units} (Normal) Range: 0.0-3.2 [...] Cholesterol, Total 192 mg/dL (Normal) Range: 100-199 17-Huu-734576:09 Vitamin D Hydroxy (76064) Comments: PATIENT NOT FASTINGPERFORMED BY: Red Blue Voice6370 [facility] [id number] Vitamin D, 25-Hydroxy 37.4 ng/mL (Normal) Range: 30.0-100.0 Comments: Vitamin D deficiency has been defined by the [place] of[place]icine and an Endocrine Society practice guideline as alevel of serum 25-OH vitamin D less than 20 ng/mL (1,2).The Endocrine Society went on to further define vitamin Dinsufficiency as a level between 21 and 29 ng/mL (2).1. IOM ([place] of [place]). 2010. Dietary reference intakes for calcium and D. Fu [place]: The National Academies Press.2. Castillo MF, Yocasta NC, Jerri MACIEL, et al. Evaluation, treatment, and prevention of vitamin D deficiency: an Endocrine Society clinical practice guideline. JCEM. 2010; 96(7):1911-30. 48-Fmv-13049:43 LIPID PANEL (46897) Comments: PATIENT WAS FASTINGPERFORMED BY: [facility] Muybbd9031 [facility] [id number] LDL/HDL Ratio 1.6 {ratio_units} (Normal) Range: 0.0-3.2 [...] MANUAL DIFF Comments: PATIENT WAS FASTINGPERFORMED BY: LabCoVirt[facility] CenterRfxras6993 [facility] [id number] Information: [id number] (54133) Immature Grans (Abs) 0.0 {x10E3/uL} (Normal) Range: [...] 3.77-5.28 WBC 6.2 {x10E3/uL} (Normal) Range: 3.4-10.8 31-Rkz-15371:43 METABOLIC PANEL, COMPREHENSIVE Comments: PATIENT WAS FASTINGPERFORMED BY: [facility] Brnxqf6330 [facility] [id number] (43698) ALT (SGPT) 20 [iU]/L (Normal) Range: 0-32 [...] Glucose, Serum 89 mg/dL (Normal) Range: 65-99 25-Hyl-06234:43 Vitamin D Hydroxy (83773) Comments: PATIENT WAS FASTINGPERFORMED BY: [facility] Ziusys5502 [facility] [id number] Vitamin D, 25-Hydroxy 43.0 ng/mL (Normal) Range: 30.0-100.0 Comments: Vitamin D deficiency has been defined by the [place] of[place]icine and an Endocrine Society practice guideline as alevel of serum 25-OH vitamin D less than 20 ng/mL (1,2).The Endocrine Society went on to further define vitamin Dinsufficiency as a level between 21 and 29 ng/mL (2).1. IOM ([place] of [place]). 2010. Dietary reference intakes for calcium and D. Fu [place]: The National Academies Press.2. Castillo MF, Yocasta SHABAZZ, Jerri MACIEL, et al. Evaluation, treatment, and prevention of vitamin D deficiency: an Endocrine Society clinical practice guideline. JCEM. 2010; 96(7):1911-30. 79-Sot-26173:43 TSH (02460) Comments: PATIENT WAS FASTINGPERFORMED BY: [facility] Vnirin5113 [facility] [id number] TSH 2.870 {uIU/mL} (Normal) Range: 0.450-4.500 01-Rjq-101968:07 BILAT SCRN DIGITAL & CAD Radiology Report [...] Leal M.D.September 14, 2012 at 2:38:45 PM [id number] Signed GP/GP If you are the referring physician and would like to consult with theradiologist who provided this interpretation, please contact Allen Pak at [phone]. If this radiologist is unavailable, youwill be directed to another radiologist to assist. I f you are a patient with a question regarding this report, pleasecontactyour referring physician directly. Professional Interpretation Provided By: @Pay, Phone , The se documents contain legally [...] documents. Dictated on 09/14/12 1407 by Bo BRADLEY,Cosmeranscribed on 09/14/12 1445 by ITS IMPORTSign by Samuel Leal MD on 09/14/12 1446 Sign by: Samuel Leal MD 06-Aug-20129:37 Rapid Flu (80884 x 2) Influenza A Ag B Positive (Normal) 29-Err-414130:27 MYOCARD PERF STRESS/REST MULT Radiology Report See [...] inducibleischemia. Dictated on 03/21/12 1104 by Gabby BARDLEY,AlexandrosTranscribed on 03/21/12 1327 by Anselmo NOEL by Gabby BRADLEY,Oscar on 03/21/12 1821 Sign by: Oscar Palacios MD 57-Wss-272682:48 Vitamin D Hydroxy (03671) Comments: PATIENT NOT FASTINGPERFORMED BY: Red Blue Voice6370 [address] [facility] [id number] Vitamin D, 25-Hydroxy 46.3 ng/mL (Normal) Range: 30.0-100.0 Comments: Vitamin D deficiency has been defined by the [place] of[place]icine and an Endocrine Society practice guideline as alevel of serum 25-OH vitamin D less than 20 ng/mL (1,2).The Endocrine Society went on to further define vitamin Dinsufficiency as a level between 21 and 29 ng/mL (2).1. IOM ([place] of [place]). 2010. Dietary reference intakes for calcium and D. Fu [place]: The National Academies Press.2. Castillo MF, Yocasta NC, Jerri MACIEL, et al. Evaluation, treatment, and prevention of vitamin D deficiency: an Endocrine Society clinical practice guideline. JCEM. 2010; 96(7):1911-30. 29-Nqt-430065:48 Protein Electro, Random Urine Comments: PATIENT NOT FASTINGPERFORMED BY: [employer] Niijfa9708 [facility] [id number] Please note: SPRCS (Normal) Comments: Protein electrophoresis scan will follow via computer, mail, orcourier delivery. M-Dereck, % Not Observed % (Normal) Gamma Globulin, U 29.4 % (Normal) Beta Globulin, U 22.4 % (Normal) Nuzdu-5-Bbidhmoe, U 17.0 % (Normal) Ksiom-5-Wphqyopl, U 5.0 % (Normal) Albumin, U 26.3 % (Normal) Protein,Total,Urine 2.1 mg/dL (Normal) Range: 0.0-15.0 74-Qbl-502485:48 PARATHORMONE (03300) Comments: PATIENT NOT FASTINGPERFORMED BY: Happy Cosas70 [facility] [id number] PTH, Intact 19 pg/mL (Normal) Range: 15-65 79-Rjj-121104:48 Protein Electro.,S Comments: PATIENT NOT FASTINGPERFORMED BY: Happy Cosas70 [facility] [id number] Please note: SPRCS (Normal) Comments: Protein electrophoresis scan will follow via computer, mail, orcourier delivery. A/G Ratio 1.5 (Normal) Range: 0.7-2.0 Globulin, Total 2.8 g/dL (Normal) Range: 2.0-4.5 M-Dereck Not Observed g/dL (Normal) Gamma Globulin 0.9 g/dL (Normal) Range: 0.5-1.6 Beta Globulin 1.0 g/dL (Normal) Range: 0.6-1.3 Rcfef-5-Bcqnsypp 0.6 g/dL (Normal) Range: 0.4-1.2 Biiux-0-Lvgzuese 0.2 g/dL (Normal) Range: 0.1-0.4 Albumin 4.2 g/dL (Normal) Range: 3.2-5.6 Protein, Total, Serum 7.0 g/dL (Normal) Range: 6.0-8.5 90-Kjo-956434:48 TSH (23891) Comments: PATIENT NOT FASTINGPERFORMED BY: Happy Cosas70 [facility] [id number] TSH 1.760 {uIU/mL} (Normal) Range: 0.450-4.500 12-Lby-483264:30 CHEST WITHOUT CONTRAST Radiology Report See Note [...] Leal M.D.February 09, 2012 at 8:57:03 AM [id number] onically Signed GP/GP If you are the referring physician and would like to consult with theradiologist who provided this interpretation, please contact Allen Pak at [phone]. If this r adiologist is unavailable, youwill be directed to another radiologist to assist. If you are a patient with a question regarding this report, pleasecontactyour referring physician directly. Professional Interpretation Provided By: @Pay, Phone , Dictated on 02/08/12 1137 by Akshat Leal MDribed on 02/09/12 0920 by ITS IMPORTSign by Yury Leal MD on 02/09/12 0921 Sign by: Samuel Leal MD 01-Lpr-424159:13 METABOLIC PANEL, COMPREHENSIVE Comments: A duplicate report has been generated due to demographic updateof the patient's Date of , Age, Gender, and/or Specimen Date.Please review patient results, reference intervals, and calculatedresults (24145) that may have been affected by this change.PERFORMED BY: LabCoV[facility] CenterIdjujh6176 [facility] [id number] ALT (SGPT) 17 [iU]/L (Normal) Range: 0-40 [...] Glucose, Serum 84 mg/dL (Normal) Range: 65-99 50-Qxc-644443:13 CBC WITH MANUAL DIFF (59462) Comments: A duplicate report has been generated due to demographic updateof the patient's Date of , Age, Gender, and/or Specimen Date.Please review patient results, reference intervals, and calculatedresults that may have been affected by this change.PERFORMED BY: [facility] Ravklz5938 [facility] [id number] Immature Grans (Abs) 0.0 {x10E3/uL} (Normal) Range: [...] 3.77-5.28 WBC 7.1 {x10E3/uL} (Normal) Range: 4.0-10.5 59-Unp-000046:18 Homocysteine, Plasma (67251) Comments: PATIENT NOT FASTINGPERFORMED BY: [facility] Zoewsx9485 [facility] [id number] Homocyst(e)ine, Plasma 11.4 umol/L (Normal) Range: 0.0-15.0 55-Afc-866534:18 Vitamin D Hydroxy Comments: PATIENT NOT FASTINGPERFORMED BY: [facility] Ymeekr2385 [place] [id number] Information: [id number] (39757) Vitamin D, 25-Hydroxy 17.7 ng/mL (Abnormal) Range: 30.0-100.0 Comments: Vitamin D deficiency has been defined by the [place] of[place]icine and an Endocrine Society practice guideline as alevel of serum 25-OH vitamin D less than 20 ng/mL (1,2).The Endocrine Society went on to further define vitamin Dinsufficiency as a level between 21 and 29 ng/mL (2).1. IOM ([place] of [place]). 2011. Dietary reference intakes for calcium and D. Fu [place]: The National Academies Press.2. Castillo MF, Yocasta SHABAZZ, Jerri MACIEL, et al. Evaluation, treatment, and prevention of vitamin D deficiency: an Endocrine Society clinical practice guideline. JCEM. 2010; 96(7):1911-30. 51-Ynd-787808:15 BILAT SCRN DIGITAL & CAD Radiology Report [...] radiologist regarding this report, please call our 84L6ulctzeo line @ Dictated on 08/30/11 1357 by Tomas Leal MDrieleTranscribed on 08/30/11 1421 by ITS IMPORTSign by Samuel Leal MD on 08/30/11 142 Sign by: Samuel Leal MD 55-Wph-243089:14 DEXA BONE DENSITY STUDY (HP) Radiology Report [...] logist regarding this report, please call our 29F8dwceaju line @ Dictated on 08/30/11 1322 by Bo BRADLEY,Susiscribed on 08/30/11 1559 by ITS IMPORTSign by Bo BRADLEY,Anton aparicio on 08/30/11 1600 Sign by: Samuel Leal MD 17-Yby-07715:42 Anticardiolipin Ab, IgA, Qn Comments: PATIENT WAS FASTINGPERFORMED BY: [place] LabKROGNIrp Fwsbdfgoux[address] [id number] BY: [facility] Fjouol2634 [facility] [id number] BY: TG [facility] CSL7028 [facility] [id number] Anticardiolipin Ab,IgA,Qn <9 {APL_U/mL} Range: 0-11 (Normal) Comments: Negative: <12 Indeterminate: 12 - 20 Low-Med Positive: >20 - 80 High Positive: >80 17-Aug-2011 Antithrombin Activity 110 % (Normal) Comments: PATIENT WAS FASTINGPERFORMED BY: [place] Olkvobbgcv610[address] [id number] BY: [facility] Qvyeff9375 [facility] [id number] BY: TG [facility] 9:42 BIT6830 [facility] [id number] Range: 75-135 54-Rgr-24881:42 CBC With Differential/Platelet Comments: PATIENT WAS FASTINGPERFORMED BY: [place] Jvqislhhzo[address] [id number] BY: [facility] Ithfgu3607 [address] [facility] [id number] BY: TG [facility] SWV8242 [address] [facility] [id number] Immature Grans (Abs) 0.0 {x10E3/uL} (Normal) Range: [...] 3.80-5.10 WBC 6.8 {x10E3/uL} (Normal) Range: 4.0-10.5 82-Bmg-95975:42 Comp. Metabolic Panel Comments: PATIENT WAS FASTINGPERFORMED BY: [facility] Ebjujvhtjk6295 [facility] [id number] BY: CB [facility] Ahngsk4123 [facility] [id number] BY: [employer] (14) PKK1210 [facility] [facility] [id number] ALT (SGPT) 20 [iU]/L (Normal) Range: 0-40 [...] Comments: PATIENT WAS FASTINGPERFORMED BY: BN [facility] [address] [id number] BY: CB [facility] Zprtjo5692 [facility] [id number] BY: TG [facility] [address] ZRB2136 [address] [place] [id number] Range: 75-130 78-Tla-00952:42 Factor V Leiden Mutation Comments: PATIENT WAS FASTINGPERFORMED BY: [facility] Zluvciurbl6317 [place] [id number] BY: CB [facility] Rydjqf1762 [place] [id number] BY: [facility] XKG7039 [place] [place] [id number] Factor V Leiden FVNEG3 (Normal) Comments: Result: [...] in the workup for venous thrombosis include bcyC38056I mutation in the factor II (prothrombin) gene,protein S and C deficiency, and antithromb in deficiencies.Anticardiolipin antibody and lupus anticoagulant analysismay be appropriate for certain patients, as well ashomocysteine levels. .Contact your local [facility] for information on how to orderadditional testing if desired. .Genetic counselors are available for health care* providers to discuss results at [phone] ([phone]). .Methodology:DNA analysis of the Factor V gene [...] Anticoagulant Comp Comments: PATIENT WAS FASTINGPERFORMED BY: [address] [id number] BY: [place] 6674470 [facility] [id number] BY: [address] [id number] Interpretation Comment: (Normal) Comments: No lupus anticoagulant [...] :42 MTHFR Comments: PATIENT WAS FASTINGPERFORMED BY: [address] [id number] BY: [facility]6370 [facility] [id number] BY: [facility] AJE3267 [facility] [id number] MTHFR, DNA Analysis 6712HE (Abnormal) Comments: Result: C677T/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 One copy of the C677T mutation and one copy of the A2659Lyixrotvn were identified. Population data suggest t hese [...] these results with health care providers at [phone] .The MTHFR enzyme is responsible for creating the circulatingform of folate. Folate is important in homocysteine regula-tion. Defects in the MT HFR enzyme can indirectly causeelevated homocysteine levels. The C677T mutation in theMTHFR gene can cause elevated homocysteine levels in tommy-viduals with insufficient folate, particularly when there are two mutations present. The P6885R mutation has not beenassociated with elevated homocysteine levels unless a Y558Mafqfxwoi is also present. Elevated serum homocysteine levelshave [...] Ph.D.Julia Escobar M.D.Val. Faye Enriquez, Ph.D. . 25-Nrf-95184:42 Protein C Deficiency Comments: PATIENT WAS FASTINGPERFORMED BY: [facility] [address] [id number] BY: CB [facility] Iufnbi0119 Flores RoadDublin [place] [id number] BY: TG [facility] KZD6744Joanna WhitakerDOYLESTOWN HEALTH [id number] Protein C-Functional 147 % (Normal) Range: 74-151 Protein C Antigen 117 % (Normal) Range: 70-140 :42 Protein S Panel Comments: PATIENT WAS FASTINGPERFORMED BY: [facility] [address] [id number] BY: CB [facility] Ielguz1850 [address] [facility] HospitalDublin [place] [id number] BY: TG [facility] YAU8836 Ry[address] [facility]ST[facility] [id number] Protein S-Functional 78 % (Normal) Range: 60-145 Protein S, Free 74 % (Normal) Range: 56-124 Protein S, Total 101 % (Normal) Range: 58-150 TSH 1.550 {uIU/mL} Comments: PATIENT WAS FASTINGPERFORMED BY: BN [facility] [address] [id number] BY: CB [facility] Gtxaev5460 [address]osedale RoadDublin [place] [id number] BY: TG [facility] :42 (Normal) OGP2189 [address] [facility] [id number] Range: 0.450-4.500 Vitamin D, 25-Hydroxy 20.1 ng/mL Comments: PATIENT WAS FASTINGPERFORMED BY: [facility] [address] [id number] BY: CB [facility] Pctkze8900 [address] [facility] HospitalDublin [place] [id number] BY: TG [facility] :42 (Abnormal) EJB0543 [address] [facility]akerDOYLESTOWN [facility] [id number] Range: 30.0-100.0 Comments: Vitamin D deficiency has been defined by the [place] of[place]icine and an Endocrine Society practice guideline as alevel of serum 25-OH vitamin D less than 20 ng/mL (1,2).The Endocrine Society went on to further define vitamin Dinsufficiency as a level between 21 and 29 ng/mL (2).1. IOM ([place] of Medicine). 2011. Dietary reference intakes for calcium and D. Fu [place]: The National Academies Press.2. Castillo MF, Yocasta SHABAZZ, Jerri MACIEL, et al. Evaluation, treatment, and prevention of vitamin D deficiency: an Endocrine Society clinical practice guideline. JCEM. 2010; 96(7):1911-30. 70-Sue-921261:01 CHEST WITHOUT CONTRAST Radiology Report See Note [...] 06/29/11 1512 Sign by: JUANITA CARRERO MD 64-Mru-770581:02 PT (PROTHROMBIN TIME) Comments: PATIENT NOT FASTINGPERFORMED BY: [facility]6370 [facility] [id number] Information: [id number] (24901) Prothrombin Time 31.0 {sec} (Abnormal) Range: 8.7-11.5 Comments: Effective June 20, 2011, the reference interval will be changing to: 9.1 - 12.0 INR 2.9 (Abnormal) Range: 0.8-1.2 Comments: Reference interval is for non-anticoagulated patients. . Suggested INR therapeutic range for Vitamin K anta gonist therapy: Standard Dose (moderate intensity therapeutic range): 2.0 - 3.0 Higher intensity therapeutic range 2.5 - 3.5 21-Rnm-960879:29 PT (PROTHROMBIN TIME) Comments: PATIENT NOT FASTINGPERFORMED BY: [place] 6674470 [facility] [id number] Information: [id number] (85745) Prothrombin Time 23.9 {sec} (Abnormal) Range: 8.7-11.5 Comments: Effective June 20, 2011, the reference interval will be changing to: 9.1 - 12.0 INR 2.3 (Abnormal) Range: 0.8-1.2 Comments: Reference interval is for non-anticoagulated patients. . Suggested INR therapeutic range for Vitamin K anta gonist therapy: Standard Dose (moderate intensity therapeutic range): 2.0 - 3.0 Higher intensity therapeutic range 2.5 - 3.5 13-Ina-671834:21 PT (PROTHROMBIN TIME) Comments: PATIENT NOT FASTINGPERFORMED BY: [place] 6674470 [facility] [id number] Information: [id number] (25299) Prothrombin Time 19.7 {sec} (Abnormal) Range: 8.7-11.5 [...] (PROTHROMBIN TIME) Comments: PATIENT NOT FASTINGPERFORMED BY: [place] 6674470 [facility] [id number] Information: [id number] (43196) Prothrombin Time 38.3 {sec} (Abnormal) Range: 8.7-11.5 INR 3.6 (Abnormal) Range: 0.8-1.2 Comments: Client Requested Flag Reference interval is for non- anticoagulated patients. . Suggested INR therapeutic ra nge for Vitamin K antagonist therapy: Standard Dose (moderate intensity therapeutic range): 2.0 - 3.0 Higher intensity therapeutic range 2.5 - 3.5 :08 PT (PROTHROMBIN TIME) (18850) Comments: PATIENT NOT FASTINGPERFORMED BY: [facility]6370 [facility] [id number] Prothrombin Time 32.2 {sec} (Abnormal) Range: 8.7-11.5 INR 3.1 (Abnormal) Range: 0.8-1.2 Comments: Reference interval is for non-anticoagulated patients. . Suggested INR therapeutic range for Vitamin K anta gonist therapy: Standard Dose (moderate intensity therapeutic range): 2.0 - 3.0 Higher intensity therapeutic range 2.5 - 3.5 :14 PT (PROTHROMBIN TIME) Comments: PATIENT NOT FASTINGPERFORMED BY: [place] 6674470 [facility] [id number] Information: [id number] (73141) Prothrombin Time 25.0 {sec} (Abnormal) Range: 8.7-11.5 INR 2.4 (Abnormal) Range: 0.8-1.2 Comments: Reference interval is for non-anticoagulated patients. . Suggested INR therapeutic range for Vitamin K anta gonist therapy: Standard Dose (moderate intensity therapeutic range): 2.0 - 3.0 Higher intensity therapeutic range 2.5 - 3.5 :25 PT (PROTHROMBIN TIME) Comments: PATIENT NOT FASTINGPERFORMED BY: [place] 6674470 [facility] [id number] Information: [id number] ([id number]) Prothrombin Time 35.1 {sec} (Abnormal) Range: 8.7-11.5 INR 3.3 (Abnormal) Range: 0.8-1.2 Comments: Reference interval is for non-anticoagulated patients. . Suggested INR therapeutic range for Vitamin K anta gonist therapy: Standard Dose (moderate intensity therapeutic range): 2.0 - 3.0 Higher intensity therapeutic range 2.5 - 3.5 :48 PT (PROTHROMBIN TIME) Comments: PATIENT NOT FASTINGPERFORMED BY: [facility]6370 [facility] [id number] Information: [id number] (63115) Prothrombin Time 28.1 {sec} (Abnormal) Range: 8.7-11.5 INR 2.6 (Abnormal) Range: 0.8-1.2 Comments: Reference interval is for non-anticoagulated patients. . Suggested INR therapeutic range for Vitamin K anta gonist therapy: Standard Dose (moderate intensity therapeutic range): 2.0 - 3.0 Higher intensity therapeutic range 2.5 - 3.5 :09 PT (PROTHROMBIN TIME) Comments: PATIENT NOT FASTINGPERFORMED BY: [facility] [id number] Information: [id number] ([id number]) Prothrombin Time 25.4 {sec} (Abnormal) Range: 8.7-11.5 INR 2.4 (Abnormal) Range: 0.8-1.2 Comments: Reference interval is for non-anticoagulated patients. . Suggested INR therapeutic range for Vitamin K anta gonist therapy: Standard Dose (moderate intensity therapeutic range): 2.0 - 3.0 Higher intensity therapeutic range 2.5 - 3.5 :45 PT (PROTHROMBIN TIME) Comments: PATIENT NOT FASTINGPERFORMED BY: [facility] [id number] Information: [id number] ([id number]) Prothrombin Time 26.1 {sec} (Abnormal) Range: 8.7-11.5 INR 2.4 (Abnormal) Range: 0.8-1.2 Comments: Reference interval is for non-anticoagulated patients. . Suggested INR therapeutic range for Vitamin K anta gonist therapy: Standard Dose (moderate intensity therapeutic range): 2.0 - 3.0 Higher intensity therapeutic range 2.5 - 3.5 :06 Prothrombin Time (PT) Comments: PERFORMED BY: PRANEETH [facility]6[address] [facility] [id number] Prothrombin Time 25.8 {sec} (Abnormal) Range: 8.7-11.5 INR 2.4 (Abnormal) Range: 0.8-1.2 Comments: Reference interval is for non-anticoagulated patients. . Suggested INR therapeutic range for Vitamin K anta gonist therapy: Standard Dose (moderate intensity therapeutic range): 2.0 - 3.0 Higher intensity therapeutic range 2.5 - 3.5 :56 PT (PROTHROMBIN TIME) Comments: PATIENT NOT FASTINGPERFORMED BY: [place] 6674470 [facility] [id number] Information: [id number] (52140) Prothrombin Time 18.9 {sec} (Abnormal) Range: 8.7-11.5 INR 1.8 (Abnormal) Range: 0.8-1.2 Comments: Reference interval is for non-anticoagulated patients. . Suggested INR therapeutic range for Vitamin K anta gonist therapy: Standard Dose (moderate intensity therapeutic range): 2.0 - 3.0 Higher intensity therapeutic range 2.5 - 3.5 8-Rnx-729307:14 Prothrombin Time (PT) Comments: PERFORMED BY: [facility] [id number] Prothrombin Time 29.7 {sec} (Abnormal) Range: 8.7-11.5 INR 2.8 (Abnormal) Range: 0.8-1.2 Comments: Reference interval is for non-anticoagulated patients. . Suggested INR therapeutic range for Vitamin K anta gonist therapy: Standard Dose (moderate intensity therapeutic range): 2.0 - 3.0 Higher intensity therapeutic range 2.5 - 3.5 4-Uxr-537426:05 Prothrombin Time (PT) Comments: PERFORMED BY: [facility] [id number] Prothrombin Time 38.0 {sec} (Abnormal) Range: 8.7-11.5 INR 3.5 (Abnormal) Range: 0.8-1.2 Comments: Reference interval is for non-anticoagulated patients. . Suggested INR therapeutic range for Vitamin K anta gonist therapy: Standard Dose (moderate intensity therapeutic range): 2.0 - 3.0 Higher intensity therapeutic range 2.5 - 3.5 68-Ofa-563848:45 Prothrombin Time (PT) Comments: PERFORMED BY: [employer] Hafngu2629 [facility] [id number] Prothrombin Time 32.4 {sec} (Abnormal) Range: 8.7-11.5 INR 3.0 (Abnormal) Range: 0.8-1.2 Comments: Reference interval is for non-anticoagulated patients. . Suggested INR therapeutic range for Vitamin K anta gonist therapy: Standard Dose (moderate intensity therapeutic range): 2.0 - 3.0 Higher intensity therapeutic range 2.5 - 3.5 :46 Prothrombin Time (PT) Comments: PERFORMED BY: Sport TelegramVirtua Our [facility] of [facility]our[facility] Medical CenterPspkwl4871 [facility] [id number] Prothrombin Time 34.4 {sec} (Abnormal) Range: 8.7-11.5 INR 3.2 (Abnormal) Range: 0.8-1.2 Comments: Reference interval is for non-anticoagulated patients. . Suggested INR therapeutic range for Vitamin K anta gonist therapy: Standard Dose (moderate intensity therapeutic range): 2.0 - 3.0 Higher intensity therapeutic range 2.5 - 3.5 5-Xnv-784415:39 Prothrombin Time (PT) Comments: PERFORMED BY: Sport TelegramVirtua Our [facility] Lourdes Medical CenterJmcjyk5785 [facility] [id number] Prothrombin Time 31.7 {sec} (Abnormal) Range: 8.7-11.5 INR 3.0 (Abnormal) Range: 0.8-1.2 Comments: Reference interval is for non-anticoagulated patients. . Suggested INR therapeutic range for Vitamin K anta gonist therapy: Standard Dose (moderate intensity therapeutic range): 2.0 - 3.0 Higher intensity therapeutic range 2.5 - 3.5 00-Pxb-489578:03 Prothrombin Time (PT) Comments: PERFORMED BY: GeneAssessMoberly Regional Medical CenterZrieio4933 [facility] [id number] Prothrombin Time 31.1 {sec} (Abnormal) Range: 8.7-11.5 INR 2.9 (Abnormal) Range: 0.8-1.2 Comments: Reference interval is for non-anticoagulated patients. . Suggested INR therapeutic range for Vitamin K anta gonist therapy: Standard Dose (moderate intensity therapeutic range): 2.0 - 3.0 Higher intensity therapeutic range 2.5 - 3.5 95-Rls-978731:00 Prothrombin Time (PT) Comments: PERFORMED BY: [facility] CenterKROGNIVirtua [facility] Medical CenterUjgwlu6400 [facility] [id number] Prothrombin Time 31.3 {sec} (Abnormal) Range: 8.7-11.5 INR 2.9 (Abnormal) Range: 0.8-1.2 Comments: Reference interval is for non-anticoagulated patients. . Suggested INR therapeutic range for Vitamin K anta gonist therapy: Standard Dose (moderate intensity therapeutic range): 2.0 - 3.0 Higher intensity therapeutic range 2.5 - 3.5 :47 Prothrombin Time (PT) Comments: PERFORMED BY: [facility] [id number] Prothrombin Time 20.6 {sec} (Abnormal) Range: 8.7-11.5 INR 1.9 (Abnormal) Range: 0.8-1.2 Comments: Reference interval is for non-anticoagulated patients. . Suggested INR therapeutic range for Vitamin K anta gonist therapy: Standard Dose (moderate intensity therapeutic range): 2.0 - 3.0 Higher intensity therapeutic range 2.5 - 3.5 :36 Prothrombin Time (PT) Comments: PERFORMED BY: [facility] [id number] Prothrombin Time 27.7 {sec} (Abnormal) Range: 8.7-11.5 INR 2.6 (Abnormal) Range: 0.8-1.2 Comments: Reference interval is for non-anticoagulated patients. . Suggested INR therapeutic range for Vitamin K anta gonist therapy: Standard Dose (moderate intensity therapeutic range): 2.0 - 3.0 Higher intensity therapeutic range 2.5 - 3.5 43-Xsr-39172:32 Prothrombin Time (PT) Comments: PERFORMED BY: [facility]6370 [facility] [id number] Prothrombin Time 44.8 {sec} (Abnormal) Range: 8.7-11.5 INR 4.2 (Abnormal) Range: 0.8-1.2 Comments: Client Requested Flag Reference interval is for non- anticoagulated patients. . Suggested INR therapeutic ra nge for Vitamin K antagonist therapy: Standard Dose (moderate intensity therapeutic range): 2.0 - 3.0 Higher intensity therapeutic range 2.5 - 3.5 :39 CHEST WITH CONTRAST Radiology Report See Note (Normal) Comments: Exam Number: [id number] LINICAL:This is a 64-year-old female patient with [...] Report See Note (Normal) Comments: Exam Number: [id number] AMMOGRAPHY - BILATERAL SCREENING INDICATION:Routine annual screening [...] attaching a ResultCode to this exam. ADDENDUM: [id number] HPBI/MDS Reported By: VIKTORIYA MAJANO M.D. 15-Zcw-219104:55 Prothrombin Time (PT) Comments: PERFORMED BY: Happy Cosas70 e[facility]enUNC Health [id number] Prothrombin Time 29.1 {sec} (Abnormal) Range: 8.7-11.5 INR 2.7 (Abnormal) Range: 0.8-1.2 Comments: Reference interval is for non-anticoagulated patients. . Suggested INR therapeutic range for Vitamin K anta gonist therapy: Standard Dose (moderate intensity therapeutic range): 2.0 - 3.0 Higher intensity therapeutic range 2.5 - 3.5 58-Hxo-236659:29 Prothrombin Time (PT) Comments: PERFORMED BY: [employer] Hlebup2012 [facility] [id number] Prothrombin Time 30.2 {sec} (Abnormal) Range: 8.7-11.5 INR 2.8 (Abnormal) Range: 0.8-1.2 Comments: Reference interval is for non-anticoagulated patients..Suggested INR therapeutic range for Vitamin Kantagonist therapy:Standard Dose (moderate intensitytherapeutic range): 2.0 - 3.0Higher intensity therapeutic range 2.5 - 3.5 35-Uuu-229165:36 Prothrombin Time (PT) Comments: PERFORMED BY: [employer] Uirzsk0370 [facility] [id number] Prothrombin Time 23.4 {sec} (Abnormal) Range: 8.7-11.5 INR 2.2 (Abnormal) Range: 0.8-1.2 Comments: Reference interval is for non-anticoagulated patients..Suggested INR therapeutic range for Vitamin Kantagonist therapy:Standard Dose (moderate intensitytherapeutic range): 2.0 - 3.0Higher intensity therapeutic range 2.5 - 3.5 :04 PT (Prothrobim Time) Comments: PATIENT NOT FASTINGPERFORMED BY: GeneAssessLatoya Ville 5282470 [facility] [id number] Information: [id number] (11050) Prothrombin Time 31.7 {sec} (Abnormal) Range: 8.7-11.5 INR 3.0 (Abnormal) Range: 0.8-1.2 Comments: Reference interval is for non-anticoagulated patients..Suggested INR therapeutic range for Vitamin Kantagonist therapy:Standard Dose (moderate intensitytherapeutic range): 2.0 - 3.0Higher intensity therapeutic range 2.5 - 3.5 :34 LIPID PANEL (05572) Comments: PATIENT WAS FASTINGPERFORMED BY: [employer] Svboca8944 [facility] [id number] HDL Cholesterol 61 mg/dL (Normal) Comments: According [...] PANEL, COMPREHENSIVE Comments: PATIENT WAS FASTINGPERFORMED BY: Sport TelegramVirtua Our Lady of Lour[facility] Medical CenterAiecbk6563 [facility] [id number] (35037) ALT (SGPT) 19 [iU]/L (Normal) Range: 0-40 [...] Glucose, Serum 82 mg/dL (Normal) Range: 65-99 38-Yht-98262:34 CBC WITH MANUAL DIFF Comments: PATIENT WAS FASTINGPERFORMED BY: LabCoVirtua Our Lady [facility] Medical CenterQdqrzt7953 [facility] [id number] Information: ADD [id number] AND DRAW FEE [id number] [phone] (88196) Immature Grans (Abs) 0.0 {x10E3/uL} (Normal) Range: [...] (Normal) Range: 4.0-10.5 :34 Vitamin D Hydroxy (86969) Comments: PATIENT WAS FASTINGPERFORMED BY: Happy Cosas70 [facility] [id number] Vitamin D, 25-Hydroxy 48.1 ng/mL (Normal) Range: 32.0-100.0 Comments: Recent studies consider the lower limit of 32.0 ng/mL to be athreshold for optimal health.Simon NUNEZ. J Nutr. 2004;135(2):317-22. 22-Bqb-377028:18 Prothrombin Time (PT) Comments: PERFORMED BY: LabCoTagkastDwobil9076 [facility] [id number] Prothrombin Time 26.5 {sec} (Abnormal) Range: 8.7-11.5 INR 2.7 (Abnormal) Range: 0.8-1.2 Comments: Reference interval is for non-anticoagulated patients..Suggested INR therapeutic range for Vitamin Kantagonist therapy:Standard Dose (moderate intensitytherapeutic range): 2.0 - 3.0Higher intensity therapeutic range 2.5 - 3.5 21-Lsa-981452:55 Prothrombin Time (PT) Comments: PERFORMED BY: [facility]AssessCore[facility]6370 [facility] [id number] Prothrombin Time 27.7 {sec} (Abnormal) Range: 8.7-11.5 INR 2.8 (Abnormal) Range: 0.8-1.2 Comments: Reference interval is for non-anticoagulated patients..Suggested INR therapeutic range for Vitamin Kantagonist therapy:Standard Dose (moderate intensitytherapeutic range): 2.0 - 3.0Higher intensity therapeutic range 2.5 - 3.5 3-Rsb-368726:49 Prothrombin Time (PT) Comments: PERFORMED BY: [facility]AssessCorewell [facility] Hospital6370 [facility] [id number] Prothrombin Time 26.0 {sec} (Abnormal) Range: 8.7-11.5 INR 2.6 (Abnormal) Range: 0.8-1.2 Comments: Reference interval is for non-anticoagulated patients..Suggested INR therapeutic range for Vitamin Kantagonist therapy:Standard Dose (moderate intensitytherapeutic range): 2.0 - 3.0Higher intensity therapeutic range 2.5 - 3.5 :37 CHEST WITH CONTRAST Radiology Report See Note (Normal) Comments: Exam Number: [id number] CLINICAL:Fluoroscopy study for pulmonary embolism and lymphadenopathy [...] isadvised.Emphysema.No mediastinal lymphadenopathy. Reported By: DONELL FERGUSON 8-Fyo-129473:16 Prothrombin Time (PT) Comments: PERFORMED BY: [employer]70 [facility] [id number] Prothrombin Time 25.2 {sec} (Abnormal) Range: 8.7-11.5 INR 2.6 (Abnormal) Range: 0.8-1.2 Comments: Reference interval is for non-anticoagulated patients..Suggested INR therapeutic range for Vitamin Kantagonist therapy:Standard Dose (moderate intensitytherapeutic range): 2.0 - 3.0Higher intensity therapeutic range 2.5 - 3.5 78-Pon-201253:50 Prothrombin Time (PT) Comments: PERFORMED BY: [employer]70 [facility] [id number] Prothrombin Time 29.3 {sec} (Abnormal) Range: 8.7-11.5 INR 3.0 (Abnormal) Range: 0.8-1.2 Comments: Reference interval is for non-anticoagulated patients..Suggested INR therapeutic range for Vitamin Kantagonist therapy:Standard Dose (moderate intensitytherapeutic range): 2.0 - 3.0Higher intensity therapeutic range 2.5 - 3.5 83-Hph-882920:07 Prothrombin Time (PT) Comments: PERFORMED BY: [employer]6370 [facility] [id number] Prothrombin Time 19.4 {sec} (Abnormal) Range: 8.7-11.5 INR 1.9 (Abnormal) Range: 0.8-1.2 Comments: Reference interval is for non-anticoagulated patients..Suggested INR therapeutic range for Vitamin Kantagonist therapy:Standard Dose (moderate intensitytherapeutic range): 2.0 - 3.0Higher intensity therapeutic range 2.5 - 3.5 49-Zmu-020636:16 Prothrombin Time (PT) Comments: PERFORMED BY: [employer] Hcuvwn2970 [facility] [id number] Prothrombin Time 21.6 {sec} (Abnormal) Range: 8.7-11.5 INR 2.2 (Abnormal) Range: 0.8-1.2 Comments: Reference interval is for non-anticoagulated patients..Suggested INR therapeutic range for Vitamin Kantagonist therapy:Standard Dose (moderate intensitytherapeutic range): 2.0 - 3.0Higher intensity therapeutic range 2.5 - 3.5 82-Uhl-41410:21 MYOCARD PERF STRESS/REST MULT Radiology Report See Note (Normal) Comments: Exam Number: [id number] REGADENOSON CARDIOLITE STUDY HISTORYThis is a 64-year-old [...] orinducible ischemia. Reported By: OSCAR PALACIOS M.D. 27-Uss-578748:41 Prothrombin Time (PT) Comments: PERFORMED BY: [facility] Sbyzsf9286 [facility] [id number] Prothrombin Time 19.6 {sec} Range: 8.7-11.5 (Abnormal) INR 2.0 (Abnormal) Range: 0.8-1.2 Comments: Reference interval is for non-anticoagulated patients..Suggested INR therapeutic range for Vitamin Kantagonist therapy:Standard Dose (moderate intensitytherapeutic range): 2.0 - 3.0Higher intensity therapeutic range 2.5 - 3.5 08-Oct-2009 Vitamin D, 25-Hydroxy 21.4 ng/mL Comments: PERFORMED BY: [facility]6370 [facility] [id number] 11:41 (Abnormal) Range: 32.0-100.0 Comments: Recent studies consider the lower limit of 32.0 ng/mL to be athreshold for optimal health.Simon NUNEZ. J Nutr. 2004;135(2):317-22. 8-Zlr-713194:50 Prothrombin Time (PT) Comments: PERFORMED BY: [facility]6370 [facility] [id number] Prothrombin Time 18.2 {sec} (Abnormal) Range: 8.7-11.5 INR 1.8 (Abnormal) Range: 0.8-1.2 Comments: Reference interval is for non-anticoagulated patients..Suggested INR therapeutic range for Vitamin Kantagonist therapy:Standard Dose (moderate intensitytherapeutic range): 2.0 - 3.0Higher intensity therapeutic range 2.5 - 3.5 5-Onq-252490: LDH 201 [iU]/L (Normal) Comments: PERFORMED BY: [facility]6370 [facility] [id number] Range: 100-250 7-Oui-969308:33 Prothrombin Time (PT) Comments: PERFORMED BY: [facility]6370 [facility] [id number] Prothrombin Time 14.6 {sec} (Abnormal) Range: 8.7-11.5 INR 1.4 (Abnormal) Range: 0.8-1.2 Comments: Reference interval is for non-anticoagulated patients..Suggested INR therapeutic range for Vitamin Kantagonist therapy:Standard Dose (moderate intensitytherapeutic range): 2.0 - 3.0Higher intensity therapeutic range 2.5 - 3.5 LDH 227 U/L (Abnormal) Range: 100-190 :50 73-Wli-646972:00 A-CARDIO [id number] ANTICARDIO IgG < 6 {GPL_U/mL} (Normal) Range: 0-10 Comments: Negative: <11Indeterminate: 11 - 19Low-Med Positive: 20 - 80Positive: >80 ANTICARDIO IgM 7 {MPL_U/mL} (Normal) Range: 0-9 Comments: Negative: <10Indeterminate: 10 - 19Low-Med Positive: 20 - 80Positive: >80Performed At: MARTHAabCdamian Uoemuj2620 [place], [place] [id number] : C-REACTIVE PROT < 2.90 mg/L (Normal) [...] T PROT 6.9 g/dL (Normal) Range: 6.4-8.2 72-Sit-611364:00 ESR SED RATE 11 mm/h (Normal) Range: 0-30 57-Cei-72988:49 PET/CT TUMOR BASE TO MID THIGH Radiology Report See Note (Normal) Comments: Exam Number: [id number] EXAM: Body PET study INDICATIONS: A 64-year-old [...] with associated thoracicparavertebral muscle tension artifact. (Cristiana, [facility] Hospitalurn al of Nuclear Medicine 29:1393, 2002). Reported By: VERÓNICA CHAPA 32-Ksg-934278:15 PRO TIME Comments: CALL RESULTS TO DR. PEACOCK [phone] CALLED TO Jerome RAMON 09/10/09 LEO THAKUR.REPORT READ BACK BY SAME.; see not in emr to DF INR 3.2 (Normal) PROTIME 37.3 s (Abnormal) Range: 9.1-11.7 7-Izk-824017:47 TSH (86735) Comments: PATIENT NOT FASTINGPERFORMED BY: [facility] Cqihqv1671 [facility] [id number] TSH 1.520 {uIU/mL} (Normal) Range: 0.450-4.500 :47 CBC WITH MANUAL DIFF Comments: PATIENT NOT FASTINGPERFORMED BY: [facility]6370 [facility] [id number] Information: [id number] ([id number]) Baso (Absolute) 0.0 {x10E3/uL} (Normal) Range: 0.0-0.2 [...] PANEL, COMPREHENSIVE Comments: PATIENT NOT FASTINGPERFORMED BY: [facility]6370 [facility] [id number] (38450) ALT (SGPT) 38 [iU]/L (Normal) Range: 0-40 [...] Glucose, Serum 94 mg/dL (Normal) Range: 65-99 9-Pfx-741883:47 LDH (LD) (LACTATE DEHYDROGENASE) Comments: PATIENT NOT FASTINGPERFORMED BY: LabCoVirtua [facility] Medical CenterPhjcwk8262 [facility] [id number] (27608) LDH 410 [iU]/L (Abnormal) Range: 100-250 5-Uzw-327628:47 URINE HARJIT CULTURE (CRISTA COL Comments: PATIENT NOT FASTINGPERFORMED BY: CB [facility] Cqpqzw8935 [facility] [id number] COUNT) (33924) Result 1 MUG (Normal) Comments: Mixed urogenital flora3,000 Colonies/mL . Urine Final report (Normal) Culture,Comprehensive 70-Msp-66339:49 VIT D,25 26110 43.4 ng/mL (Normal) Range: 32.0-100.0 Comments: Recent studies consider the lower limit of 32.0 ng/mL to jaci threshold for optimal health.[facility]. J Nutr. 2004;135(2):317-22.Performed At: [address] [id number] 11-Fmb-446350:4 VIT D,25 42523 26.2 ng/mL (Abnormal) Range: 32.0-100.0 0 Comments: Recent studies consider the lower limit of 32.0 ng/mL to jaci threshold for optimal health.[facility]. J Nutr. 2004;135(2):317-22.Performed At: [facility] [place] [id number] 81-Gmt-623279:26 BILAT SCRN DIGITAL & CAD Radiology Report See Note (Normal) Comments: Exam Number: [id number] MAMMOGRAM, BILATERAL SCREENING DIGITAL AND CAD HISTORYRoutine [...] mammograms werealso examined with computer-aided detection software ([employer], app2you.). Reported By: VIKTORIYA MAJANO M.D. 19-Thm-800381:25 DEXA BONE DENSITY STUDY () Radiology Report See Note (Normal) Comments: Exam Number: [id number] BONE DENSITOMETRY HISTORYOsteopenia. TECHNIQUE Bone densitometry of [...] left hip. Reported By: VIKTORIYA MAJANO M.D. 28-Lmb-52334:20 CBCD,SMEAR DIFF BAND 1 % (Normal) Range: [...] {uIU/mL} (Normal) Range: 0.34-4.82 :20 VIT D,25 94198 21.4 ng/mL (Abnormal) Range: 32.0-100.0 Comments: Recent studies consider the lower limit of 32.0 ng/mL to jaci threshold for optimal health.Simon NUNEZ. J Nutr. 2005 Aug;135(2):317-22.Performed At: [facility] [place] [address] 2489[address]65 :20 VITAMIN B12 685 pg/mL (Normal) Range: 211-911 :11 Thin prep Pap (15877) Comments: Source.............CervicalLMP / Prev Treat...IWT=[id number]. of containers..01 CYTYC Thin Prep VialPATIENT NOT FASTINGClinical Information: ADD [id number] PERFORMED BY: [facility] [id number] . . (Normal) DIAGNOSIS: SPRCS (Normal) Comments: NEGATIVE FOR INTRAEPITHELIAL LESION AND MALIGNANCY.CELLULAR CHANGES ASSOCIATED WITH ATROPHY ARE PRESENT.Satisfactory for evaluation. Endocervical component may not bedistinguished in cases of atrophy.V 72.31 ; Routine gynecological examinationSchanning Elam, Public Health Dietitian (ASCP)Clari Hernandez, Supervisory Public Health Dietitian (ASCP) Note: PAPSMR (Normal) Comments: The Pap [...] resulttherefore, no HPV testing was performed. . 1-Yql-914517:48 KNEE,4 OR MORE VIEWS Radiology Report See Note (Normal) Comments: Exam Number: [id number] FOUR VIEWS LEFT KNEE AP, LATERAL, TUNNEL [...] woman exam Planned Observations Vitamin B-12 (cyanocobalamin) (49183)Indication: Paresthesia On: :15 Request LIPID PANEL (22708)Indication: Other hyperlipidemia On: 8-Bhf-380029:15 Request MICROALBUMIN: CREATININE RATIO (03225) AND (10488)Indication: Elevated hemoglobin A1c On: 2-Kde-284974:15 Request METABOLIC PANEL, COMPREHENSIVE (64068)Indication: Elevated hemoglobin A1c On: 1-Dtr-656778:15 Request HGB A1C (18424)Indication: Elevated hemoglobin A1c On: 9-Xnk-397064:15 Request METABOLIC PANEL, COMPREHENSIVE (98919)Indication: Elevated hemoglobin A1c On: 66-Muy-62078:50 Request CBC with auto diff (46436)Indication: Gastroesophageal reflux disease without esophagitis On: :07 Request METABOLIC PANEL, COMPREHENSIVE (68304)Indication: Gastroesophageal reflux disease without esophagitis On: :07 Request LIPID PANEL (08566)Indication: Other hyperlipidemia On: :06 Request TSH (17958)Indication: Thyroid Nodule On: :06 Request Vitamin D Hydroxy (06239)Indication: Vitamin D deficiency, unspecified On: :06 Request CBC W/AUTO DIFF WBC (20328)Indication: Osteopenia of multiple sites On: :14 Request METABOLIC PANEL, COMPREHENSIVE (58210)Indication: Osteopenia of multiple sites On: :14 Request Vitamin D Hydroxy (65151)Indication: Vitamin D deficiency, unspecified On: :13 Request LIPID PANEL (17420)Indication: Other hyperlipidemia On: :13 Request TSH (69015)Indication: Thyroid Nodule On: :13 Request METABOLIC PANEL, COMPREHENSIVE (21734)Indication: Other hyperlipidemia On: 83-Knz-055978:28 Request LIPID PANEL (78768)Indication: Other hyperlipidemia On: 40-Jve-684398:27 Request Vitamin D Hydroxy (20765)Indication: Vitamin D deficiency, unspecified On: 15-Axy-964435:20 Request Influenza A&B Viral Culture (49014)Indication: Fever and chills On: 06-Aug-20129:48 Request Comments: positive BHad flu shot Vitamin D Hydroxy (19949)Indication: Osteopenia of multiple sites On: 04-Tkb-934048:15 Request Protein S Profile (52906)Indication: Pulmonary embolism (Renamed from PE (pulmonary embolism)) On: :13 Request Protein C Profile (27665)Indication: Pulmonary embolism (Renamed from PE (pulmonary embolism)) On: :13 Request MTHFR (50253)Indication: Pulmonary embolism (Renamed from PE (pulmonary embolism)) On: :13 Request Antiphospholipid atb (26250)Indication: Pulmonary embolism (Renamed from PE (pulmonary embolism)) On: :13 Request ANTICOAG ANTTHROMB III & ASSAY (86757)Indication: Pulmonary embolism (Renamed from PE (pulmonary embolism)) On: :13 Request ANTITHROMBIN III ACTIVTY (65489)Indication: Pulmonary embolism (Renamed from PE (pulmonary embolism)) On: :13 Request CLOTTING FACTOR II (27073)Indication: Pulmonary embolism (Renamed from PE (pulmonary embolism)) On: 73-Zne-05111:12 Request Factor V Leiden (67336)Indication: Pulmonary embolism (Renamed from PE (pulmonary embolism)) On: :12 Request PTT PLASMA SUBSTITUTION (47112) #[id number]: Pulmonary embolism (Renamed from PE (pulmonary embolism)) On: :12 Request PAL VIPER VENOM-DILUT (45485) #[id number]: Pulmonary embolism (Renamed from PE (pulmonary embolism)) On: :12 Request TSH (85482)Indication: Osteopenia of multiple sites On: :09 Request METABOLIC PANEL, COMPREHENSIVE (77582)Indication: Pulmonary embolism (Renamed from PE (pulmonary embolism)) On: :09 Request CBC WITH MANUAL DIFF ([id number])Indication: Pulmonary embolism (Renamed from PE (pulmonary embolism)) On: :09 Request Vitamin D Hydroxy ([id number])Indication: Vitamin D deficiency, unspecified On: :09 Request Vitamin D Hydroxy ([id number])Indication: Vitamin D deficiency, unspecified On: 2-Ycq-677385:43 Request CBC WITH MANUAL DIFF ([id number])Indication: Anemia, unspecified On: 34-Llm-776750:22 Request LDH (LD) (LACTATE DEHYDROGENASE) ([id number])Indication: Elevated LFTs On: 04-Drb-377493:22 Request Urinalysis, Office ([id number])Indication: Low back pain (Renamed from LBP (low back pain)) On: 8-Pyl-527698:43 Request Vitamin D Hydroxy ([id number])Indication: vit d def On: 39-Uia-938366:11 Request Vitamin D Hydroxy ([id number])Indication: vit d def On: 4-Ozc-842202:14 Request LIPID PANEL ([id number])Indication: Well woman exam On: 01-Cnh-907545:58 Request METABOLIC PANEL, COMPREHENSIVE ([id number])Indication: Osteopenia of multiple sites On: :58 Request CBC WITH MANUAL DIFF ([id number])Indication: Osteopenia of multiple sites On: :58 Request Vitamin D Hydroxy ([id number])Indication: Osteopenia of multiple sites On: :56 Request TSH ([id number])Indication: Osteopenia of multiple sites On: :55 Request VITAMIN B-12 (CYANOCOBALAMIN) ([id number])Indication: Paresthesia On: :55 Request Planned Encounters Medical; [facility] 4 Month Fu - On: 06-Nov-2018 13:30 [facility] Fast DO, Isabella A Fast DO, Isabella A Planned Procedures Nerve ConductionBy: Fast DO, Isabella A On: 02-Jul-2018 Intent Fast DO, Isabella A Comments: both legs EMGBy: Fast DO, Isabella A Fast DO, On: 02-Jul-2018 Intent Isabella A Comments: both legs Flu Vaccine (Quadrivalent) [id number]: On: 02-Jul-2018 Intent Fast DO, Isabella A Fast DO, Isabella A Comments: Lot #[id number]-L dltd, IMDose prefilled syringegiven by: AyeshaHerman reviewed and ABN signed ELECTROCARDIOGRAM, COMPLETE (ECG) On: 02-Jul-2018 Intent ([id number])By: Fast DO, Isabella A Fast DO, Comments: ekg showed normal sinus rhythym, normal axis, no acute st/t wave changes Isabella A Ultrasound - ThyroidBy: Fast DO, On: 30-Mar-2018 Intent Isabella A Fast DO, Isabella A SCREENING DIGITAL TOMOSYNTHESIS OF On: 30-Mar-2018 Intent BREAST ([id number])By: Fast DO, Isabella A Fast DO, Isabella A Ultrasound - ThyroidBy: Fast DO, On: 24-Nov-2017 Intent Isabella A Fast DO, Isabella A Comments: end december SCREENING DIGITAL TOMOSYNTHESIS OF On: 24-Nov-2017 Intent BREAST ([id number])By: Fast DO, Isabella A Fast DO, Isabella A ELECTROCARDIOGRAM, COMPLETE (ECG) On: 19-Jul-2017 Intent ([id number])By: Fast DO, Isabella A Fast DO, Comments: ekg showed normal sinus rhythym, normal axis, no acute st/t wave changes prolonged qt unchanged Isabella A Ultrasound - ThyroidBy: Fast DO, On: 13-Dec-2016 Intent Isabella A Fast DO, Isabella A Comments: due 01/17 SCREENING DIGITAL TOMOSYNTHESIS OF On: 13-Dec-2016 Intent BREAST ([id number])By: Fast DO, Isabella A Comments: due 01/17 Fast DO, Isabella A MRI OF BRAIN WITH AND WITHOUT On: 19-Aug-2016 Intent CONTRAST ([id number])By: Fast DO, Isabella A Fast DO, Isabella A Nerve ConductionBy: Fast DO, Isabella A On: 19-Aug-2016 Intent Fast DO, Isabella A Comments: right arm EMGBy: Fast DO, Isabella A Fast DO, On: 19-Aug-2016 Intent Isabella A Comments: right arm DEXA SCAN AXIAL SKELETON ([id number])By: On: 19-Aug-2016 Intent Fast DO, Isabella A Fast DO, Isabella A Flu Vaccine (Quadrivalent) 09715Ch: On: 19-Aug-2016 Intent Fast DO, Isabella A Fast DO, Isabella A Comments: Lot:[id number]:01/27/17Dose:0.5mLRoute:IMSite:L DltdGiven By:VLAD signed ADMINISTRATION OF INFLUENZA VIRUS On: 19-Aug-2016 Intent VACCINE ([id number])By: Fast DO, Isabella A Fast DO, Isabella A PNEUM VAC ADLT/IMUMNOSPR, SBC/INTRM On: 06-Jul-2016 Intent ([id number])By: Fast DO, Isabella A Fast DO, Comments: Lot:[id number]:12/03/17Dose:0.5mgRoute:imSite:l armGiven By:VLAD signed Isabella A MAMMOGRAM, SCREENING, BOTH BREAST On: 04-Sep-2015 Intent ([id number])By: Fast DO, Isabella A Fast DO, Isabella A Ultrasound - ThyroidBy: Fast DO, On: 04-Sep-2015 Intent Isabella A Fast DO, Isabella A MAMMOGRAM, SCREENING, BOTH BREAST On: 28-Apr-2015 Intent ([id number])By: Fast DO, Isabella A Fast DO, Comments: end apr Isabella A Flu Vaccine (Quadrivalent) [id number]: On: 28-Apr-2015 Intent Fast DO, Isabella A Fast DO, Isabella A Comments: Lot #[id number] date: 12/2015Amount given:prefilled syringeSite given:L Dltd, IMGiven by: LUZ Olson and ABN signed ADMINISTRATION OF INFLUENZA VIRUS On: 28-Apr-2015 Intent VACCINE (G0008)By: Fast DO, Isabella A Fast DO, Isabella A Overnight Pulse OX ([id number])By: Luis Alberto On: 02-Mar-2015 Intent DO, Isabella A Fast DO, Isabella A Comments: gave overnight paulse ox to pt with new batteries. Explained to patient how it worked and had her demonstrate it back to me so I knew she was aware. Told patient to bring back before noon if possible on 03/02/15. EKG ([id number])By: Luis Alberto DO, Isabella A On: 26-Dec-2014 Intent Fast DO, Isabella A Comments: ekg showed normal sinus rhythym, normal axis, no acute st/t wave changes OtherBy: Fast DO, Isabella A Fast DO, On: 02-Sep-2014 Intent Isabella A Comments: sleep study Overnight Pulse OX ([id number])By: Luis Alberto On: 29-Aug-2014 Intent DO, Isabella A Fast DO, Isabella A Ultrasound - ThyroidBy: Fast DO, On: 29-Aug-2014 Intent Isabella A Fast DO, Isabella A Prevnar 13 ([id number])By: Loki MARIA, On: 30-May-2014 Intent Sindy Comments: [id number] arm, IMAS Overnight Pulse OX ([id number])By: Luis Alberto On: 30-May-2014 Intent DO, Isabella A Fast DO, Isabella A Comments: On 2 Liters at night Given monitor A Overnight Pulse OX ([id number])By: Luis Alberto On: 23-May-2014 Intent DO, Isabella A Fast DO, Isabella A FLU VAC, SPLIT, >3 YEARS, INTRAMUSC On: 23-May-2014 Intent ([id number])By: Luis Alberto DO, Isabella A Fast DO, Comments: Lot #:[id number] date:03/2016Amount given:0.5mlRoute: IMSite given: left deltoidGiven by: SCOUT Merritt ADMINISTRATION OF INFLUENZA VIRUS On: 23-May-2014 Intent VACCINE ([id number])By: Luis Alberto DO, Isabella A Fast DO, Isabella A DEXA SCAN AXIAL SKELETON ([id number])By: On: 11-Apr-2014 Intent Fast DO, Isabella A Fast DO, Isabella A MAMMOGRAM, SCREENING, BOTH BREAST On: 11-Apr-2014 Intent ([id number])By: Fast DO, Isabella A Fast DO, Isabella A Overnight Pulse OX ([id number])By: Fast On: 11-Apr-2014 Intent DO, Isabella A Fast DO, Isabella A Comments: 2 weeks Radiology - Lumbar SpineBy: Luis Alberto DO, On: 11-Apr-2014 Intent Isabella A Fast DO, Isabella A Overnight Pulse OX ([id number])By: Fast On: 07-Apr-2014 Intent DO, Isabella A Fast DO, Isabella A Six Minute Walk Assessment On: 20-Mar-2014 Intent ([id number])By: Fast DO, Isabella A Fast DO, Isabella A MAMMOGRAM, SCREENING, BOTH BREASTS On: 12-Aug-2013 Intent ([id number])By: Fast DO, Isabella A Fast DO, Isabella A DXA, BONE DENSITY, AXIAL SKELETON On: 12-Aug-2013 Intent ([id number])By: Fast DO, Isabella A Fast DO, Isabella A Aerosol Treatment ([id number])By: Jalil On: 03-Jun-2013 Intent LAP GRINDER, Emelyn Eprescribed prescriptions ([id number])By: On: 03-Jun-2013 Intent Long HIDE AND SKIN CLASSER, Ny L MAMMOGRAM, SCREENING, BOTH BREASTS On: 06-May-2013 Intent ([id number])By: Luis Alberto DO, Isabella A Fast DO, Comments: aug Isabella A DXA, BONE DENSITY, AXIAL SKELETON On: 06-May-2013 Intent ([id number])By: Fast DO, Isabella A Fast DO, Comments: due in aug Isabella A Ultrasound - ThyroidBy: Fast DO, On: 06-May-2013 Intent Isabella A Fast DO, Isabella A FLU VAC, SPLIT, >3 YEARS, INTRAMUSC On: 06-May-2013 Intent ([id number])By: Merna Hinojosa Comments: Lot #:[id number] date:mount given:0.5mlRoute: IMSite given: L dltdVIS and ABN signedGiven by: SCOUT Merritt ADMINISTRATION OF INFLUENZA VIRUS On: 06-May-2013 Intent VACCINE (G0008)By: Merna Hinojosa Spirometry ([id number])By: Luis Alberto ARCHULETA, On: 20-Aug-2012 Intent Isabella A Fast DO, Isabella A Comments: good effort and curve improve over previous Eprescribed prescriptions ([id number])By: On: 20-Aug-2012 Intent Fast DO, Isabella A Fast DO, Isabella A Pulse Oximetry ([id number])By: Luis Alberto ARCHULETA, On: 20-Aug-2012 Intent Isabella A Fast DO, Isabella A Aerosol Treatment ([id number])By: Fast On: 20-Aug-2012 Intent DO, Isabella A Fast DO, Isabella A MAMMOGRAM, SCREENING, BOTH BREASTS On: 30-May-2012 Intent ([id number])By: Luis Alberto ARCHULETA Isabella A Fast DO, Comments: jul Isabella A ADMINISTRATION OF INFLUENZA VIRUS On: 30-May-2012 Intent VACCINE (G0008)By: Merna Hinojosa Comments: Lot #[id number]-L dltd, IMDose prefilled syringegiven by:SHARYN Hester signed FLU VAC, SPLIT, >3 YEARS, INTRAMUSC On: 30-May-2012 Intent ([id number])By: Merna Hinojosa EKG ([id number])By: Luis Alberto DO, Isabella A On: 14-Mar-2012 [...] MAMMOGRAM, SCREENING, BOTH BREASTS On: 27-Jun-2011 Intent ([id number])By: Fast DO, Isabella A Fast DO, Isabella A CT - ChestBy: Fast DO, Isabella A Fast On: 27-Jun-2011 Intent DO, Isabella A DXA, BONE DENSITY, AXIAL SKELETON On: 27-Jun-2011 Intent ([id number])By: Luis Alberto ARCHULETA, Isabella A Fast DO, Isabella A FLU VAC, SPLIT, >3 YEARS, INTRAMUSC On: 05-May-2011 Intent ([id number])By: Nieves Valdez LPN Comments: Lot #[id number]/20/12Site-left deltoidgiven by: Saul Valdez LPN IMMUNIZ ADMNIN, 1 VAC, SNGL/COMBO On: 05-May-2011 Intent ([id number])By: Nieves Valdez LPN Aerosol Treatment ([id number])By: Ciesa On: 15-Dec-2010 Intent LAP GRINDER, Emelyn Inhaler Demo ([id number])By: Luis Alberto ARCHULETA, On: 05-Jul-2010 Intent Isabella A Luis Alberto DO, Isabella A DXA, BONE DENSITY, AXIAL SKELETON On: 05-Jul-2010 Intent ([id number])By: Chetan Peacock DOa A Fast DO, Comments: julya A CT - ChestBy: Chetan Peacock DOa A Fast On: 01-Mar-2010 Intent DO Isabella A Comments: pe protocol- mid sept MAMMOGRAM, SCREENING, BOTH BREASTS On: 01-Mar-2010 Intent ([id number])By: Luis Alberto ARCHULETA, Isabella A Fast DO, Isabella A PFT - CompleteBy: Luis Alberto DO Isabella A On: 01-Mar-2010 Intent Luis Alberto DO Isabella A Nuclear Stress Test/Stress On: 07-Oct-2009 Intent SPECT/AdenosineBy: Fast DO, Isabella A Fast DO, Isabella A EKG ([id number])By: Luis Alberto ARCHULETA Isabella A On: 07-Oct-2009 Intent Fast DO Isabella A Comments: ekg showed normal sinus rhythym, normal axis, no acute st/t wave changes Pulse Oximetry ([id number])By: Luis Alberto ARCHULETA, On: 02-Sep-2009 Intent Isabella A Fast DO, Isabella A Comments: 97% Venous Doppler - LowerBy: Luis Alberto ARCHULETA, On: 02-Sep-2009 Intent Isabella A Fast DO, Isabella A Comments: stat today call wet read Pulse Oximetry ([id number])By: Jalil NAGEL, On: 04-Aug-2009 Intent Regine Meyers Aerosol Treatment ([id number])By: Jalil On: 04-Aug-2009 Intent Regine NAGEL PNEUM VAC ADLT/IMUMNOSPR, SBC/INTRM On: 11-May-2009 Intent ([id number])By: Sivan Yung Comments: Lot #[id number]-right deltoidDose0.5mlgiven by Harpal Yung LPN ADMINISTRATION OF PNEUMOCOCCAL On: 11-May-2009 Intent VACCINE (G0009)By: Sivan Yung FLU VAC, SPLIT, >3 YEARS, INTRAMUSC On: 11-May-2009 Intent ([id number])By: Sivan Yung Comments: Lot #[id number]-left deltoidDose0.5mlgiven by Harpal Yung LPN ADMINISTRATION OF INFLUENZA VIRUS On: 11-May-2009 Intent VACCINE (G0008)By: Sivan Yung Nerve ConductionBy: Fast DO, Isabella A On: 08-Jul-2008 Intent Fast DO, Isabella A Comments: right arm/ left leg EMGBy: Fast DO, Isabella A Fast DO, On: 08-Jul-2008 Intent Isabella A Comments: right arm/left leg MAMMOGRAM, SCREENING, BOTH BREASTS On: 09-Jun-2008 Intent ([id number])By: Fast DO, Isabella A Fast DO, Isabella A DXA, BONE DENSITY, AXIAL SKELETON On: 09-Jun-2008 Intent ([id number])By: Fast DO Isabella A Fast DO, Comments: aug 08 Isabella A THER/PROPH/DIAG INJ, SC/IM On: 28-Jan-2008 Intent ([id number])By: Merna Hinojosa TETANUS VAC, ADSORBED, INTRAMUSC On: 28-Jan-2008 Intent ([id number])By: Merna Hinojosa Comments: Lot #:[id number] date:mount given:0.5mlRoute:IM Site given:left deltoidGiven by: SCOUT [...] Patient Instructions Indication: Osteopenia of multiple sites Encounters Phone Encounter On: 04-Jul-2018 16:46 Encounter [...] bp is great- 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 Note for Physical exam: [facility]- bp is good weight down [...] with sleepping with bipap has followup with senior painter in december - saw barry and he [...] cant wear cpap= wa End: 14-Apr-2014 21:50 rde up with mild headache and more fatigue [...] scanty. The cough occurs mostly in the a auxiliary. The symp End: 04-Aug-2009 13:28 toms have [...] at end of fingers and toes -- righ End: 08-Jul-2008 22:34 t hand and left foot christopher worseEncounter Diagnosis: Knee pain (719.46), Osteopenia (733.90), [...] 12:04 [facility] End: 04-Jan-2007 12:12 [facility]Stacy galeano guarantor
--- OUTSIDE RECORDS SUMMARY | 2018-10-23 09:25 | XMS RPT_ITS | Continuity of Care Document ---
:1945 External Reference #:[id number] Author Organization [facility] Address [address] [facility] [address] [place] [address] Phone Care Team Providers Name Role Phone Isabella Peacock DO Unavailable Tomer BRADLEY, Dr. Enoc Marcano Unavailable Meran Hinojosa Unavailable Unavailable LILI Michel Unavailable Unavailable Swati Bauer Unavailable Unavailable Mixed Crop Farmer, System Unavailable Unavailable Unavailable Unavailable Problems Name Dates Details Acute exacerbation of COPD with asthma (J44.1, 493.22) Comments: worsening and prolonged coughfollowing viral infection Status: Active Anxiety (F41.9, 300.00) Status: Active Arthralgia, unspecified joint (M25.50, 719.40) Comments: betteer with weight lost and eating less sugar Status: Active BMI 25.0-25.9,adult (Z68.25, V85.21) Status: Active Chronic obstructive pulmonary disease (J44.9, 496) Comments: sx stable Status: Active COPD with acute exacerbation (Renamed from Acute exacerbation of chronic obstructive airways disease) (J44.1, 491.21) Comments: add albuterol- she has machine Status: Active Coronary artery disease (I25.10, 414.00) Status: Active Deliveries (Parity) Comments: 4 Status: Active Elevated hemoglobin A1c (R73.09, 790.29) Comments: great control Status: Active Encounter for screening mammogram for [...] her tests just give orders Status: Active Former smoker (Z87.891, V15.82) Status: Active Gastroesophageal reflux disease without esophagitis (K21.9, 530.81) Status: Active History of colon polyps (Z86.010, V12.72) Status: Active Hypersomnia (G47.10, 780.54) Status: Active Hypoxia (R09.02, 799.02) Comments: now on bipap Status: Active Influenza vaccination declined (Renamed from Refused influenza vaccine) (Z28.21, V64.06) Status: Active Knee pain (Renamed from Arthralgia of knee) (M25.569, 719.46) Status: Active Low back pain potentially associated with radiculopathy (M54.5, 724.2) Comments: better Status: Active Lung nodule (R91.1, 793.11) Comments: benign by ct Status: Active Malignant Melanoma Of Skin Comments: she is due for skin check Status: Active [facility] physical Status: Active [facility] Status: Active Memory loss (R41.3, 780.93) Status: [...] walking Status: Active Other hyperlipidemia (E78.49, 272.4) Comments: chronic stable-continue present regimen Status: Active Paresthesia (R20.2, 782.0) Status: Active [...] 3 mg at hs prn Status: Active Soft tissue mass (M79.9, 729.90) Status: Active Thyroid Nodule (E04.1, 241.0) Status: [...] DO, Isabella A Start : 30-Mar-2018 Active Spiriva HandiHaler 18 MCG Inhalation Capsule [...] : 15-Dec-2010 End : 27-Jun-2011 Inactive DRISDOL, 44564LLML (Oral Capsule) 1 Capsule Weekly for 0 days Quantity: 4 {Capsule} Refills: 3 Ordered:27-Jun-2011 Merna Hinojosa Start : 05-Jul-2010 End : 27-Jun-2011 Inactive ERGOCALCIFEROL, 59948LUMX (Oral Capsule) 1 (one) Capsule twice a [...] Quantity: 30 {Tablet} Refills: 3 Ordered:24-Mar-2017 Long Ny MARIA Start : 28-Jan-2015 End : 24-Mar-2017 Inactive [...] days Quantity: 10 {Capsule} Refills: 0 Ordered:06-Aug-2012 Civerna NAGEL Emelyn Start : 06-Aug-2012 End : 11-Aug-2012 Inactive [...] End : 06-May-2013 Discontinued VITAMIN D (ERGOCALCIFEROL), 15842DCOU (Oral Capsule) 1 Capsule q week for 0 days Quantity: 12 {Capsule} Refills: 3 Ordered:06-May-2013 Fast DO, Isabella AFast DO, Isabella A Start : 06-May-2013 End : 06-May-2013 Discontinued VITAMIN D, 09081GMMM (Oral Capsule) 1 Weekly for 0 days Refills: 0 Ordered:07-Apr-2010 Mast JUAN Loyda End : 07-Apr-2010 Discontinued Comments:This order discontinued [...] 285.9) Status: Resolved as of 05-Jul-2010 BMI 26.0-26.9,adult (Z68.26, V85.22) Status: Inactive as [...] (R50.9, 780.60) Status: Resolved as of 06-May-2013 Influenza B (J10.1, 487.1) Status: Resolved as of 06-May-2013 Low back pain (Renamed from LBP (low back pain)) (M54.5, 724.2) Status: Resolved as of 05-Jul-2010 Lymphadenopathy (Renamed from Adenopathy) (R59.1, 785.6) Status: [...] boyfriend has witnessed this multiple times at [facility] sleep study to evaluate had abnormal overnight [...] Status: Resolved as of 30-Mar-2018 screening Status: Resolved as of 30-Mar-2018 screening Status: Inactive as of 14-Mar-2012 screening Status: Inactive as of 27-Jun-2011 screening Status: Inactive as of 11-Apr-2014 screening Status: Inactive as of 11-Apr-2014 screening Status: Inactive as of 06-May-2013 Severe daytime sleepiness Status: Resolved as of 30-Mar-2018 Shingles (B02.9, 053.9) Status: Resolved as of 30-Mar-2018 Snoring (R06.83, 786.09) Status: Inactive as of 26-Dec-2014 SOB (shortness of breath) on exertion (R06.02, 786.05) Status: Resolved as of 01-Mar-2010 STRIPPING AND LIGATION OF VEINS OF LEG, [...] Result: Comments: See Note; NOTES: [facility] Imaging Services [address] [place] [address] SCREENING MAMM (CAD), BILAT MR#: [id number] Acct: [id number] Name: KERI RITCHIE Rep #: [id number] : 1945 F 72 From: Samuel Leal MD PCP: Isabella Peacock DO Status: REG CLI Study: SCREENING MAMM (CAD), BILAT Date of Exam: 05/30/18 Exam# [id number] Ordering Dr: Isabella Peacock DO MAMMOG UCHE [...] delay biopsy of a clinically suspicious abnormality. [id number] Electronically Signed: Samuel Leal MD at 9:52 EDT Tel [phone], FileThis support , CC: Isabella Peacock DO Trace Evidence Technician: Signed 30-May-2018 Thyroid Result: Comments: See Note; NOTES: [facility] Imaging Services [address] [place] [address] Thyroid MR#: [id number] Acct: [id number] Name: KERI RITCHIE Rep #: [id number] : [birth year] F 72 From: Timbo Phillips DO PCP: Isabella Peacock DO Status: REG CLI Study: Thyroid Date of Exam: 05/30/18 Exam# [id number] Ordering Dr: Isabella Peacock DO STUDY: THYROID [...] Service support , CC: Isabella Peacock DO Trace Evidence Technician: Signed 27-Jan-2017 SCREENING MAMM (CAD), BILAT Result: Comments: See Note; NOTES: [facility] Imaging Services [address] [place] [address] Verdana 4d SCREENING MAMM (CAD), BILAT MR#: [id number] Acct: [id number] Name: KERI RITCHIE Rep #: [id number] : 1945 F 71 From: Samuel Leal MD PCP: Isabella Peacock DO Status: REG CLI Study: SCREENING MAMM (CAD), BILAT Date of Exam: 01/27/17 Exam# [id number] Ordering Dr: Isabella Peacock DO MAMMOGRAPHY - [...] delay biopsy of a clinically suspicious abnormality. [id number] Electronically Signed: Samuel Leal MD at 10:52 ED T Tel [phone], Service support , CC: Isabella Peacock DO Trace Evidence Technician: Signed 27-Jan-2017 Thyroid Result: Comments: See Note; NOTES: [facility] Imaging Services [address] [place] [address] Verdana 4d Thyroid MR#: [id number] Acct: [id number] Name: SCOUTDARYLSANAKERI K Rep #: [id number] D OB: 1945 F 71 From: Merna Solomon MD PCP: Isabella Peacock DO Status: REG CLI Study: Thyroid Date of Exam: 01/27/17 Exam# [id number] Ordering Dr: Isabella Peacock DO STUDY: THYROID [...] Merna Solomon MD at 0:00 EDT Tel [phone], Service support , Fax CC: Isabella Peacock DO Trace Evidence Technician: Signed 21-Sep-2016 NCS and/or EMG Patient Result: Comments: See Note; NOTES: [facility] Pulmonary Services/Neurology [address] [place] [address] NCS and/or EMG Patient MR#: [id number] Acct: [id number] Name: KERI RITCHIE Rep #: [id number] : 1945 71 From: Donte Daniels MD Referring Dr: Isabella Peacock DO Status: REG CLI Ordering Dr: Isabella Peacock DO Date: 09/20/16 Location: N Sex: F C DATE OF SERVICE: 09/20/2016 [...] elbow. Donte mcgee MD T: NTS JOB: [id number] 09/21/16 1036 <Electronically signed by Donte Daniels MD> Date Donte Daniels MD CC: Isabella Peacock DO; Kerry Daniels MD Date Dictated: 09/20/16 1016 Date Transcribed: 09/20/16 1016 Trace Evidence Technician: Signed 30-Aug-2016 Dexa Bone Density Study (HP) Result: Comments: See Note; NOTES: [facility] Imaging Services [address] [place] [address] Verdana 4d Dexa Bone Density Study () MR#: [id number] Acct: [id number] Name: KERI RITCHIE Rep #: [id number] : 1945 F 71 From: Samuel Leal MD PCP: Isabella Peacock DO Status: REG CLI Study: Dexa Bone Density Study () Date of Exam: 08/30/16 Exam# [id number] Ordering Dr: Geni Peacock ra, DO STUDY: [...] Samuel Leal MD at 9:49 EST Tel [phone], Service support [phone], CC: Isabella Peacock DO Trace Evidence Technician: Signed 18-Jan-2016 Bilat Scrn Digital AND CAD Result: Comments: See Note; NOTES: [facility] Imaging Services [address] [place] [address] Verdana 4d Bilat Scrn Digital AND CAD MR#: [id number] Acct: [id number] Name: KERI RITCHIE Rep #: [id number] : 1945 F 70 From: Samuel Leal MD PCP: Isabella Peacock DO Status: REG CLI Study: Bilat Scrn Digital AND CAD Date of Exam: 01/18/16 Exam# [id number] Ordering Dr: Isabella Peacock DO MAMMOGRAPHY - [...] delay biopsy of a clinically suspicious abnormality. [id number] Electronically Signed: Samuel Leal MD at 12:34 EDT Tel [phone], Service support [phone], CC: Isabella Peacock DO Trace Evidence Technician: Signed 18-Jan-2016 Thyroid Result: Comments: See Note; NOTES: [facility] Imaging Services [address] [place] [address] Verdana 4d Thyroid MR#: [id number] Acct: [id number] Name: KERI RITCHIE Rep # : [id number] : 1945 F 70 From: Samuel Leal MD PCP: Isabella Peacock DO Status: REG CLI Study: Thyroid Date of Exam: 01/18/16 Exam# [id number] Ordering Dr: Isabella Peacock DO STUDY: THYROID [...] Samuel Leal MD at 13:18 EDT Tel [phone], Service support [phone], CC: Isabella Peacock DO Trace Evidence Technician: Signed 10-Oct-2014 Sleep Study Report Result: Comments: See Note; NOTES: [facility] [address] [place], [place] [address] [address] Polysomnography with NCPAP MR#: [id number] Acct: [id number] Name: KERI RITCHIE Rep #: [id number] : 1945 69 From: Donte Daniels MD PCP: Isabella Peacock DO Status: REG CLI Ordering DrTerri: Isabella Peacock DO Date: 10/08/14 Sex: F C REFERRING PHYSICIAN: Dr. Peacock. SLEEP HIS TORY: This is a CPAP titration study performed on this 69-year-old female with a body mass index of 26.9 and an Wilbur Sleepiness Scale score of 14. History includes [...] The study was attended continuously by a mail technician. Monitored parameters included left and right [...] Result: Comments: See Note; NOTES: [facility] SLEEP [facility]ORDER [facility] [place] [address] Polysomnography MR#: [id number] Acct: [id number] Name: KERI RITCHIE Rep #: [id number] : 1945 69 From: Donte Daniels MD PCP: Isabella Peacock DO Status: REG CLI Ordering DrTerri: Isabella Peacock DO Date: 09/22/14 Sex: F C REFERRING PHYSICIAN: Dr. Isabella Peacock. SLEEP HISTORY: This is a diagnostic polysomnogram performed on this 69-year-old female with a body mass index of 26.9 and an Wilbur Sleepiness Scale score of 14. There was [...] version). Please note that a reference to CMS AHI in this re port is consistent with the current Hypopnea definition according to Medicare Criteria and an AASM AHI reference is consistent with the current Hypopnea definition according to the AASM criteria. [place] OCEDURE: The study was attended continuously by a mail technician. Monitored parameters included left and right [...] -Aug-2014 Thyroid Result: Comments: See Note; NOTES: [facility] Imaging Services [address] [place] [address] Ultrasound Report MR#: [id number] Acct: [id number] Name: ERMASANAKERI K Rep #: [id number] : 1945 F 69 From: Samuel Leal MD PCP: Isabella Pecaock DO Status: REG CLI Study: Thyroid Date of Exam: 09/05/14 Exam# [id number] Ordering Dr: Isabella Peacock DO STUDY: THYROID [...] Samuel Leal MD at 14:33 EST Tel [phone], Service support [phone], CC: Isabella Peacock DO Trace Evidence Technician: Signed 22-May-2014 Dexa Bone Density Study (HP) Result: Comments: See Note; NOTES: [facility] Imaging Services [address] [place] [address] Bone Density Report MR#: [id number] Acct: [id number] Name: KERI RITCHIE Rep #: [id number] : 1945 F 68 From: Samuel Leal MD PCP: Isabella Peacock DO Status: REG CLI Study: Dexa Bone Density Study (HP) Date of Exam: 05/22/14 Exam# [id number] Ordering Dr: Isabella Peacock DO STUDY: DUAL [...] Samuel Leal MD at 15:59 EDT Tel [phone], Service support [phone], CC: Isabella Peacock DO Trace Evidence Technician: Signed 16-May-2014 PT Discharge Summary Result: Comments: See Note; NOTES: [facility] Physical Therapy [facility] [facility] [place] [phone] Fax REHABILITATION SERVICES DISCHARGE SUMMARY MR#: [id number] Acct: [id number] Name: KERI RITCHIE Rep #: [id number] : 1945 68 From: Cyndy Damon Referring : Isabella Peacock DO Status: DIS RCR Eval Date: Discharge D ate: 05/13/14 DATE OF SERVICE: 05/13/2014 This patient was referred to physical therapy by Dr. Isabella Peacock with a diagnosis of low back pain with radiculopathy. She has been seen in our clinic t es a total of 10 visits. Her physical [...] little achy at times. Oswestry was 0%, J0081-AU , S4817-GW. She plans to follow up with Dr. Peacock on May 23, 2014. I am discharging her from formal physical therapy and she is agreeable to discharge. Cyndy Damon, PT T: NTS JOB: [id number] <Electronically signed by Cyndy Damon > 05/16/14 1034 CC: Signed 11-Apr-2014 L/S Spine Min 4 Views Result: Comments: See Note; NOTES: [facility] Imaging Services [address] [place] [address] Radiology Report MR#: [id number] Acct: [id number] Name: KERI RITCHIE Rep #: [id number] : 1945 F 68 From: Denise Cardoza MD PCP: Isabella Peacock DO Status: REG CLI Study: L/S Spine Min 4 Views Date of Exam: 04/11/14 Exam# [id number] Ordering Dr: Isabella Peacock DO STUDY: X-RAY [...] Vivienne Cardoza MD at 11:36 EDT Tel [phone], Service support [phone], Fax CC: Isabella Peacock DO Trace Evidence Technician: Signed 20-Mar-2014 Spirometry (26185) Result: 01-Jul-2013 Thyroid Result: Comments: See Note; NOTES: [facility] Imaging Services [address] [place] [address] Ultrasound Report MR#: [id number] Acct: [id number] Name: KERI RITCHIE Rep #: [id number] : 1945 F 68 From: Fredis Aguirre MD PCP: Isabella Peacock DO Status: REG CLI Study: Thyroid Date of Exam: 07/01/13 Exam# [id number] Ordering Dr: Isabella Peacock DO STUDY: THYROID [...] M.D. at 11:55 EST , Service support [phone], CC: Isabella Peacock DO Trace Evidence Technician: Signed Immunization Name Dates Details Influenza (3 years and up) on: 11-May-2009 Comments: Lot #[id number]-left deltoidDose0.5mlgiven by Harpal Yung LPN Pneumococcal (2 years and up) on: 11-May-2009 Comments: Lot #[id number]-right deltoidDose0.5mlgiven by Harpal Yung LPN Tetanus on: 28-Jan-2008 Comments: Lot #:[id number] date:mount given:0.5mlRoute:IM Site given:left deltoidGiven by: SCOUT Merritt Family History Unknown Family Member Name Dates Details Brother 1 Comments: hx postpolio sx Status: Active Father Comments: at 77, had sleep apnea, [place], glaucoma Status: Active Mother Comments: Osteopenia, hearty [...] smoker Vital Signs Date Test Result Details :41 Temperature 97.2 f Comments: Method: Temporal [...] kg/m2 Body Surface Area Calculated 1.63 m2 53-Bjs-864130:00 Temperature 97 f Comments: Method: Temporal Pulse [...] 0.00 cm Results Date Description Value Details 36-Obh-719841:47 CBC with auto diff Comments: PATIENT NOT FASTINGPERFORMED BY: [facility]CoC[facility] CenterHerexp7471 [facility] [id number] Information: NURSE DRAW (89623) Immature Grans (Abs) 0.0 {x10E3/uL} (Normal) Range: [...] 3.77-5.28 WBC 6.8 {x10E3/uL} (Normal) Range: 3.4-10.8 94-Jdf-025671:47 METABOLIC PANEL, COMPREHENSIVE Comments: PATIENT NOT FASTINGPERFORMED BY: [facility] Xhwbgj7987 [facility] [id number]; fu 07-02-18 DF (32192) ALT (SGPT) 21 [iU]/L (Normal) Range: 0-32 [...] 8-27 Glucose 99 mg/dL (Normal) Range: 65-99 :38 LIPID PANEL (29951) Comments: PATIENT WAS FASTINGPERFORMED BY: [facility] Uhtubg7325 [facility] [id number] LDL/HDL Ratio 1.4 {ratio} (Normal) Range: 0.0-3.2 [...] Range: 100-199 :38 CBC with auto diff (31798) Comments: PATIENT WAS FASTINGPERFORMED BY: LabCoAA Car[employer] WebsiteIvgdqt6854 [facility] [id number] Immature Grans (Abs) 0.0 {x10E3/uL} (Normal) Range: [...] 3.77-5.28 WBC 7.2 {x10E3/uL} (Normal) Range: 3.4-10.8 63-Gkf-03241:38 METABOLIC PANEL, COMPREHENSIVE Comments: PATIENT WAS FASTINGPERFORMED BY: [facility]Co[facility] CenterIxfusp9344 [facility] [id number] (33057) ALT (SGPT) 20 [iU]/L (Normal) Range: 0-32 [...] mg/dL (Normal) Range: 65-99 :38 HGB A1C (66935) Comments: PATIENT WAS FASTINGPERFORMED BY: [facility] Dphghm1932 [address] RoadDublin [place] [id number] Hemoglobin A1c 5.6 % (Normal) Range: 4.8-5.6 Comments: . Prediabetes: 5.7 - 6.4 Diabetes: >6.4 Glycemic control for adults with diabetes: <7.0 :38 TSH (33722) Comments: PATIENT WAS FASTINGPERFORMED BY: [facility] Qaohdz7849 [address] RoadDublin [place] [id number] TSH 1.990 {uIU/mL} (Normal) Range: 0.450-4.500 :38 Vitamin D Hydroxy (11892) Comments: PATIENT WAS FASTINGPERFORMED BY: [facility] Feiarr0911 [address] RoadDublin [place] [id number] Vitamin D, 25-Hydroxy 57.3 ng/mL (Normal) Range: 30.0-100.0 Comments: Vitamin D deficiency has been defined by the [place] ofMedicine and an Endocrine Society practice guideline as alevel of serum 25-OH vitamin D less than 20 ng/mL (1,2).The Endocrine Society went on to further define vitamin Dinsufficiency as a level between 21 and 29 ng/mL (2).1. IOM ([place] of Medicine). 2010. Dietary reference intakes for calcium and D. Fu [place]: The National Academies Press.2. Castillo MF, Yocasta NC, Jerri MACIEL, et al. Evaluation, treatment, and prevention of vitamin D deficiency: an Endocrine Society clinical practice guideline. JCEM. 2010; 96(7):1911-30. :10 LIPID PANEL (90958) Comments: PATIENT WAS FASTINGPERFORMED BY: CB [facility] Aeiqqx0346 [address] RoadDublin [place] [id number] LDL/HDL Ratio 1.4 {ratio} (Normal) Range: 0.0-3.2 Comments: LDL/HDL Ratio Men Women 1/2 Avg.Risk 1.0 1.5 Av g.Risk 3.6 3.2 2X Avg.Risk 6.2 5.0 3X Avg.Risk 8.0 6.1 LDL Cholesterol Calc 86 mg/dL (Normal) Range: 0-99 VLDL Cholesterol Christi 14 mg/dL (Normal) Range: 5-40 HDL Cholesterol 63 mg/dL (Normal) Triglycerides 70 mg/dL (Normal) Range: 0-149 Cholesterol, Total 163 mg/dL (Normal) Range: 100-199 76-Fjj-13259:10 CBC with auto diff (46089) Comments: PATIENT WAS FASTINGPERFORMED BY: [facility] Auxhtq3253 [facility] [id number] Immature Grans (Abs) 0.0 {x10E3/uL} (Normal) Range: [...] 3.77-5.28 WBC 6.0 {x10E3/uL} (Normal) Range: 3.4-10.8 71-Fjh-19942:10 MICROALBUMIN: CREATININE RATIO Comments: PATIENT WAS FASTINGPERFORMED BY: SafeToolCape Regional Medical CenterLxqqsg0466 [facility] [id number] (43848) AND (01551) Alb/Creat Ratio 24.8 {mg/g_creat} (Normal) Range: 0.0-30.0 Albumin, Urine 29.2 ug/mL (Normal) Creatinine, Urine 117.6 mg/dL (Normal) :10 METABOLIC PANEL, COMPREHENSIVE Comments: PATIENT WAS FASTINGPERFORMED BY: [facility] Dtvgax1509 [facility] [id number] (53469) ALT (SGPT) 19 [iU]/L (Normal) Range: 0-32 [...] 8-27 Glucose 86 mg/dL (Normal) Range: 65-99 31-Unb-45409:10 HGB A1C (65475) Comments: PATIENT WAS FASTINGPERFORMED BY: [email or web address] [facility]ty Hospital6370 [facility] [id number] Hemoglobin A1c 5.8 % (Abnormal) Range: 4.8-5.6 Comments: . Pre-diabetes: 5.7 - 6.4 Diabetes: >6.4 Glycemic control for adults with diabetes: <7.0 0-Fvn-312568:25 CBC W/AUTO DIFF WBC Comments: PERFORMED BY: PRANEETH LabCoCape Regional Medical CenterIkwapi8865 [facility] [id number] Information: CLIENT DRAW (48042) Immature Grans (Abs) 0.0 {x10E3/uL} (Normal) Range: [...] (THYROID STIMULATING Comments: PATIENT WAS FASTINGPERFORMED BY: SafeToolC[facility] Medical CenterWyduse8809 [facility] [id number] HORMONE) (69405) TSH 1.550 {uIU/mL} (Normal) Range: 0.450-4.500 :12 METABOLIC PANEL, COMPREHENSIVE Comments: PATIENT WAS FASTINGPERFORMED BY: [facility]ToolC[facility] Regional Medical CenterWfsamh6833 [facility] [id number] (04882) ALT (SGPT) 14 [iU]/L (Normal) Range: 0-32 [...] mg/dL (Normal) Range: 65-99 :12 HGB A1C (67348) Comments: PATIENT WAS FASTINGPERFORMED BY: [employer] Wmgepu3451 [facility]At[facility] [id number] Hemoglobin A1c 5.8 % (Abnormal) Range: 4.8-5.6 Comments: . Pre-diabetes: 5.7 - 6.4 Diabetes: >6.4 Glycemic control for adults with diabetes: <7.0 :12 Vitamin D Hydroxy (05077) Comments: PATIENT WAS FASTINGPERFORMED BY: [facility] Tfymru5122 [facility] [id number] Vitamin D, 25-Hydroxy 43.2 ng/mL (Normal) Range: 30.0-100.0 Comments: Vitamin D deficiency has been defined by the [place] ofMemorial Health Systemcine and an Endocrine Society practice guideline as alevel of serum 25-OH vitamin D less than 20 ng/mL (1,2).The Endocrine Society went on to further define vitamin Dinsufficiency as a level between 21 and 29 ng/mL (2).1. IOM ([place] of Medicine). 2010. Dietary reference intakes for calcium and D. Fu [place]: The National Academies Press.2. Castillo MF, Yocasta SHABAZZ, Jerri MACIEL, et al. Evaluation, treatment, and prevention of vitamin D deficiency: an Endocrine Society clinical practice guideline. JCEM. 2010; 96(7):1911-30. :12 LIPID PANEL (19819) Comments: PATIENT WAS FASTINGPERFORMED BY: [employer] Vydhlh7278 [facility] [id number]; elen review on 03/24 LDL/HDL Ratio 1.6 [...] Cholesterol, Total 176 mg/dL (Normal) Range: 100-199 10-Toy-245220:46 Vitamin D Hydroxy (47370) Comments: PATIENT WAS FASTINGPERFORMED BY: Curio6370 [facility] [id number] Vitamin D, 25-Hydroxy 40.8 ng/mL (Normal) Range: 30.0-100.0 Comments: Vitamin D deficiency has been defined by the [place] ofMedicine and an Endocrine Society practice guideline as alevel of serum 25-OH vitamin D less than 20 ng/mL (1,2).The Endocrine Society went on to further define vitamin Dinsufficiency as a level between 21 and 29 ng/mL (2).1. IOM ([place] of Medicine). 2010. Dietary reference intakes for calcium and D. Fu [place]: The National Academies Press.2. Castillo MF, Yocasta SHABAZZ, Jerri MACIEL, et al. Evaluation, treatment, and prevention of vitamin D deficiency: an Endocrine Society clinical practice guideline. JCEM. 2010; 96(7):1911-30. 94-Wif-677888:46 LIPID PANEL (18044) Comments: PATIENT WAS FASTINGPERFORMED BY: [employer]6370 [facility] [id number] LDL/HDL Ratio 1.9 {ratio_units} (Normal) Range: 0.0-3.2 Comments: LDL/HDL Ratio Men Women 1/2 Avg.Risk 1.0 1.5 Av g.Risk 3.6 3.2 2X Avg.Risk 6.2 5.0 3X Avg.Risk 8.0 6.1 LDL Cholesterol Calc 101 mg/dL (Abnormal) Range: 0-99 VLDL Cholesterol Christi 13 mg/dL (Normal) Range: 5-40 HDL Cholesterol 53 mg/dL (Normal) Triglycerides 65 mg/dL (Normal) Range: 0-149 Cholesterol, Total 167 mg/dL (Normal) Range: 100-199 86-Azz-472592:46 MICROALBUMIN: CREATININE RATIO Comments: PATIENT WAS FASTINGPERFORMED BY: [employer]za[employer] Tgulpg3727 [facility] [id number] (24104) AND (39962) Microalb/Creat Ratio 12.6 {mg/g_creat} (Normal) Range: 0.0-30.0 Microalbumin, Urine 4.9 ug/mL (Normal) Creatinine, Urine 38.9 mg/dL (Normal) 45-Buv-214300:46 METABOLIC PANEL, COMPREHENSIVE Comments: PATIENT WAS FASTINGPERFORMED BY: PRANEETH Limbo70 [facility] [id number] (11077) ALT (SGPT) 15 [iU]/L (Normal) Range: 0-32 [...] Glucose, Serum 86 mg/dL (Normal) Range: 65-99 49-Xjm-501440:46 HGB A1C (75494) Comments: PATIENT WAS FASTINGPERFORMED BY: PRANEETH Limbo70 [facility] [place] [id number] Hemoglobin A1c 6.0 % (Abnormal) Range: 4.8-5.6 Comments: . Pre-diabetes: 5.7 - 6.4 Diabetes: >6.4 Glycemic control for adults with diabetes: <7.0 :58 Magnesium (77590) Comments: PATIENT NOT FASTINGPERFORMED BY: [employer] Seqzgd0587 [facility] [place] [id number] BY: [address] [id number] Magnesium, Serum 2.2 mg/dL (Normal) Range: 1.6-2.3 :58 Vitamin B-12 (cyanocobalamin) Comments: PATIENT NOT FASTINGPERFORMED BY: [employer] Yzlbwb8722 Flores Roadblin [place] [id number] BY: [address] [id number] (52362) Vitamin B12 849 pg/mL (Normal) Range: 211-946 :58 CCP ANTIBODY (98760) Comments: PATIENT NOT FASTINGPERFORMED BY: [employer] Zcunjb6806 [facility] [place] [id number] BY: [address] [id number] CCP Antibodies IgG/IgA 11 {units} (Normal) Range: 0-19 Comments: Negative <20 Weak positive 20 - 39 Moderate positive 40 - 59 Strong positive >59 :58 SED RATE ERYTHROCYTE Comments: PATIENT NOT FASTINGPERFORMED BY: [employer] Jfjofa1451 [facility] [place] [id number] BY: [address] [id number] (43434) Sedimentation Rate-Westergren 2 mm/h (Normal) Range: 0-40 :58 C-REACTIVE PROTEIN (55098) Comments: PATIENT NOT FASTINGPERFORMED BY: [employer] Fmwxcu4111 [facility]bl[facility] [id number] BY: creditmontoring.com[address] [id number] C-Reactive Protein, Quant 3.4 mg/L (Normal) Range: 0.0-4.9 :58 RHEUMATOID FACTOR-QUANT Comments: PATIENT NOT FASTINGPERFORMED BY: SafeToolCape Regional Medical CenterWjhdjn5076 [facility] [id number] BY: [address] [id number] (10060) RA Latex Turbid. <10.0 {IU/mL} (Normal) Range: 0.0-13.9 :58 BOUBACAR (ANTINUCLEAR ANTIBODY) Comments: PATIENT NOT FASTINGPERFORMED BY: SafeToolJennifer [place] 7484270 [facility] [id number] BY: [address] [id number] (83471) BOUBACAR Direct Negative (Normal) :58 METABOLIC PANEL, Comments: PATIENT NOT FASTINGPERFORMED BY: SafeToolJennifer [place] 7484270 [facility] [id number] BY: creditmontoring.com[address] [id number] [facility] (18275) ALT (SGPT) 20 [iU]/L (Normal) Range: 0-32 [...] Glucose, Serum 87 mg/dL (Normal) Range: 65-99 64-Eyc-01267:58 CBC with auto diff Comments: PATIENT NOT FASTINGPERFORMED BY: CB [facility] Kuetrv3398 [facility] [id number] BY: BN [facility] [address] [id number] (04311) Immature Grans (Abs) 0.0 {x10E3/uL} (Normal) Range: [...] DIFF WBC Comments: PATIENT WAS FASTINGPERFORMED BY: LabCoCape Regional Medical CenterLlzaoj8270 [facility] [id number] Information: [id number] (88493) Immature Grans (Abs) 0.0 {x10E3/uL} (Normal) Range: [...] PANEL, COMPREHENSIVE Comments: PATIENT WAS FASTINGPERFORMED BY: SafeToolAdvanced Care Hospital of Southern New MexicoLpxllk2095 [facility] [id number] (93301) ALT (SGPT) 21 [iU]/L (Normal) Range: 0-32 [...] mg/dL (Normal) Range: 65-99 :47 LIPID PANEL (55055) Comments: PATIENT WAS FASTINGPERFORMED BY: SafeToolCape Regional Medical CenterJjmepd5533 [facility] [id number]; normal and has apt LDL/HDL Ratio 1.5 [...] (Normal) Range: 100-199 :47 Vitamin D Hydroxy (36300) Comments: PATIENT WAS FASTINGPERFORMED BY: [employer] Ffvkek2452 [facility] [id number] Vitamin D, 25-Hydroxy 37.8 ng/mL (Normal) Range: 30.0-100.0 Comments: Vitamin D deficiency has been defined by the [place] ofMedicine and an Endocrine Society practice guideline as alevel of serum 25-OH vitamin D less than 20 ng/mL (1,2).The Endocrine Society went on to further define vitamin Dinsufficiency as a level between 21 and 29 ng/mL (2).1. IOM ([place] of Medicine). 2010. Dietary reference intakes for calcium and D. Fu [place]: The National Academies Press.2. Castillo WHITE, Yocasta SHABAZZ, Jerri MACIEL, et al. Evaluation, treatment, and prevention of vitamin D deficiency: an Endocrine Society clinical practice guideline. JCEM. 2010; 96(7):1911-30. :49 Vitamin D Hydroxy (88119) Comments: PATIENT WAS FASTINGPERFORMED BY: [facility] Wavwah2805 [facility] [place] [id number] Vitamin D, 25-Hydroxy 38.7 ng/mL (Normal) Range: 30.0-100.0 Comments: Vitamin D deficiency has been defined by the [place] ofMedicine and an Endocrine Society practice guideline as alevel of serum 25-OH vitamin D less than 20 ng/mL (1,2).The Endocrine Society went on to further define vitamin Dinsufficiency as a level between 21 and 29 ng/mL (2).1. IOM ([place] of Medicine). 2010. Dietary reference intakes for calcium and D. Fu [place]: The National Academies Press.2. Castillo MF, Yocasta SHABAZZ, Jerri MACIEL, et al. Evaluation, treatment, and prevention of vitamin D deficiency: an Endocrine Society clinical practice guideline. JCEM. 2010; 96(7):1911-30. 46-Prw-09370:49 METABOLIC PANEL, Comments: PATIENT WAS FASTINGPERFORMED BY: LabCoCape Regional Medical CenterOhiudw8693 [facility] [id number] Information: [id number]; apt. 04-28-15 COMPREHENSIVE (07809) ALT (SGPT) 18 [iU]/L (Normal) Range: 0-32 [...] With Differential/Platelet Comments: PATIENT WAS FASTINGPERFORMED BY: [facility]6370 [facility] [id number] Information: [id number] Immature Grans (Abs) 0.0 {x10E3/uL} (Normal) Range: [...] Panel (14) Comments: PATIENT WAS FASTINGPERFORMED BY: [facility]6370 [facility] [id number] ALT (SGPT) 15 [iU]/L (Normal) Range: 0-32 [...] Glucose, Serum 101 mg/dL (Abnormal) Range: 65-99 00-Vtn-17568:19 Lipid Panel With LDL/HDL Comments: PATIENT WAS FASTINGPERFORMED BY: [facility] Zlbgqa7034 [facility] [id number] Ratio LDL/HDL Ratio 2.2 {ratio_units} Range: 0.0-3.2 [...] 3.600 {uIU/mL} Comments: PATIENT WAS FASTINGPERFORMED BY: [facility]6370 [facility] [id number] 7:19 (Normal) Range: 0.450-4.500 19-Dec-2014 Vitamin D, 25-Hydroxy 32.3 ng/mL (Normal) Comments: PATIENT WAS FASTINGPERFORMED BY: [facility]6370 [facility] [id number] 7:19 Range: 30.0-100.0 Comments: Vitamin D deficiency has been defined by the [place] ofMemorial Health Systemcine and an Endocrine Society practice guideline as alevel of serum 25-OH vitamin D less than 20 ng/mL (1,2).The Endocrine Society went on to further define vitamin Dinsufficiency as a level between 21 and 29 ng/mL (2).1. IOM ([place] of Medicine). 2010. Dietary reference intakes for calcium and D. Fu DC: The National Academies Press.2. Castillo MF, Yocasta NC, Jerri MACIEL, et al. Evaluation, treatment, and prevention of vitamin D deficiency: an Endocrine Society clinical practice guideline. JCEM. 2010; 96(7):1911-30. 58-Ukf-615075:09 CBC W/AUTO DIFF WBC Comments: PATIENT NOT FASTINGPERFORMED BY: [facility]6370 [facility] [id number] Information: [id number] (00966) Immature Grans (Abs) 0.0 {x10E3/uL} (Normal) Range: [...] 3.77-5.28 WBC 6.7 {x10E3/uL} (Normal) Range: 3.4-10.8 07-Uug-032444:09 METABOLIC PANEL, COMPREHENSIVE Comments: PATIENT NOT FASTINGPERFORMED BY: LabCoCape Regional Medical CenterTkezhu5481 [facility] [id number] (11520) ALT (SGPT) 16 [iU]/L (Normal) Range: 0-32 [...] Glucose, Serum 81 mg/dL (Normal) Range: 65-99 53-Sux-608714:09 LIPID PANEL (08063) Comments: PATIENT NOT FASTINGPERFORMED BY: Bizweb.vnAtrium Health Stanly [id number] LDL/HDL Ratio 2.1 {ratio_units} (Normal) Range: 0.0-3.2 [...] Cholesterol, Total 192 mg/dL (Normal) Range: 100-199 41-Wzz-607486:09 Vitamin D Hydroxy (65370) Comments: PATIENT NOT FASTINGPERFORMED BY: [employer]6370 [facility] [id number] Vitamin D, 25-Hydroxy 37.4 ng/mL (Normal) Range: 30.0-100.0 Comments: Vitamin D deficiency has been defined by the [place] ofMedicine and an Endocrine Society practice guideline as alevel of serum 25-OH vitamin D less than 20 ng/mL (1,2).The Endocrine Society went on to further define vitamin Dinsufficiency as a level between 21 and 29 ng/mL (2).1. IOM ([place] of Medicine). 2010. Dietary reference intakes for calcium and D. Fu DC: The National Academies Press.2. Castillo MF, Yocasta NC, Jerri MACIEL, et al. Evaluation, treatment, and prevention of vitamin D deficiency: an Endocrine Society clinical practice guideline. JCEM. 2010; 96(7):1001-30. :43 LIPID PANEL (04696) Comments: PATIENT WAS FASTINGPERFORMED BY: [employer]6370 [facility] [id number] LDL/HDL Ratio 1.6 {ratio_units} (Normal) Range: 0.0-3.2 [...] MANUAL DIFF Comments: PATIENT WAS FASTINGPERFORMED BY: [facility] Gpatqu6562 [facility] [id number] Information: [id number] (87195) Immature Grans (Abs) 0.0 {x10E3/uL} (Normal) Range: [...] PANEL, COMPREHENSIVE Comments: PATIENT WAS FASTINGPERFORMED BY: LabCoCape Regional Medical CenterVjsxfi5664 [facility] [id number] (46086) ALT (SGPT) 20 [iU]/L (Normal) Range: 0-32 [...] (Normal) Range: 65-99 :43 Vitamin D Hydroxy (94514) Comments: PATIENT WAS FASTINGPERFORMED BY: LabSelect [facility]ty Hospital6370 [facility] [id number] Vitamin D, 25-Hydroxy 43.0 ng/mL (Normal) Range: 30.0-100.0 Comments: Vitamin D deficiency has been defined by the [place] ofMedicine and an Endocrine Society practice guideline as alevel of serum 25-OH vitamin D less than 20 ng/mL (1,2).The Endocrine Society went on to further define vitamin Dinsufficiency as a level between 21 and 29 ng/mL (2).1. IOM ([place] of Medicine). 2010. Dietary reference intakes for calcium and D. Fu DC: The National Academies Press.2. Castillo MF, Yocasta NC, Jerri MACIEL, et al. Evaluation, treatment, and prevention of vitamin D deficiency: an Endocrine Society clinical practice guideline. JCEM. 2010; 96(7):1911-30. :43 TSH (54057) Comments: PATIENT WAS FASTINGPERFORMED BY: LabSelect [facility]ty Hospital6370 [facility] [id number] TSH 2.870 {uIU/mL} (Normal) Range: 0.450-4.500 :07 [...] Leal M.D.September 14, 2012 at 2:38:45 PM [id number] Signed GP/GP If you are the referring physician and would like to consult with theradiologist who provided this interpretation, please contact Allen Pak at [phone]. If this radiologist is unavailable, youwill be directed to another radiologist to assist. I f you are a patient with a question regarding this report, pleasecontactyour referring physician directly. Professional Interpretation Provided By: [email or web address], Phone , The se documents contain legally [...] by: Samuel Leal MD 06-Aug-20129:37 Rapid Flu (30396 x 2) Influenza A Ag B Positive (Normal) 14-Xrs-171347:27 MYOCARD PERF STRESS/REST MULT Radiology Report See [...] inducibleischemia. Dictated on 03/21/12 1104 by Tony Pierre MDrosTranscribed on 03/21/12 1327 by Anselmo NOEL by Oscar Pierre MD on 03/21/12 1821 Sign by: Oscar Pierre MD 97-Vom-693697:48 Vitamin D Hydroxy (44488) Comments: PATIENT NOT FASTINGPERFORMED BY: [facility]6370 [facility] [id number] Vitamin D, 25-Hydroxy 46.3 ng/mL (Normal) Range: 30.0-100.0 Comments: Vitamin D deficiency has been defined by the [place] ofMedicine and an Endocrine Society practice guideline as alevel of serum 25-OH vitamin D less than 20 ng/mL (1,2).The Endocrine Society went on to further define vitamin Dinsufficiency as a level between 21 and 29 ng/mL (2).1. IOM ([place] of Medicine). 2010. Dietary reference intakes for calcium and D. Fu [place]: The National Academies Press.2. Castillo MF, Yocasta SHABAZZ, Jerri MACIEL, et al. Evaluation, treatment, and prevention of vitamin D deficiency: an Endocrine Society clinical practice guideline. JCEM. 2010; 96(7):1911-30. 33-Gae-710751:48 Protein Electro, Random Urine Comments: PATIENT NOT FASTINGPERFORMED BY: [employer]6370 [facility] [id number] Please note: SPRCS (Normal) Comments: Protein electrophoresis scan will follow via computer, mail, orcourier delivery. M-Dereck, % Not Observed % (Normal) Gamma Globulin, U 29.4 % (Normal) Beta Globulin, U 22.4 % (Normal) Ahidh-1-Utvevbpl, U 17.0 % (Normal) Gkuja-5-Admaoozt, U 5.0 % (Normal) Albumin, U 26.3 % (Normal) Protein,Total,Urine 2.1 mg/dL (Normal) Range: 0.0-15.0 :48 PARATHORMONE (66787) Comments: PATIENT NOT FASTINGPERFORMED BY: Kochzauberrp Gukyaz9097 [facility] [id number] PTH, Intact 19 pg/mL (Normal) Range: 15-65 :48 Protein Electro.,S Comments: PATIENT NOT FASTINGPERFORMED BY: Kochzauberrp Jsmkon3358 [place] [id number] Please note: SPRCS (Normal) Comments: Protein electrophoresis scan will follow via computer, mail, orcourier delivery. A/G Ratio 1.5 (Normal) Range: 0.7-2.0 Globulin, Total 2.8 g/dL (Normal) Range: 2.0-4.5 M-Dereck Not Observed g/dL (Normal) Gamma Globulin 0.9 g/dL (Normal) Range: 0.5-1.6 Beta Globulin 1.0 g/dL (Normal) Range: 0.6-1.3 Gosys-1-Ashozpzk 0.6 g/dL (Normal) Range: 0.4-1.2 Dddtd-2-Tzikcuiq 0.2 g/dL (Normal) Range: 0.1-0.4 Albumin 4.2 g/dL (Normal) Range: 3.2-5.6 Protein, Total, Serum 7.0 g/dL (Normal) Range: 6.0-8.5 98-Rib-529613:48 TSH (38008) Comments: PATIENT NOT FASTINGPERFORMED BY: LabCoCape Regional Medical CenterSuwmiy4690 [facility] [id number] TSH 1.760 {uIU/mL} (Normal) Range: 0.450-4.500 74-Gfw-896682:30 CHEST WITHOUT CONTRAST Radiology Report See Note [...] Leal M.D.February 09, 2012 at 8:57:03 AM [id number] onically Signed GP/GP If you are the referring physician and would like to consult with theradiologist who provided this interpretation, please contact Allen Pak at [phone]. If this r adiologist is unavailable, youwill be directed to another radiologist to assist. If you are a patient with a question regarding this report, pleasecontactyour referring physician directly. Professional Interpretation Provided By: [email or web address], Phone , Dictated on 02/08/12 1137 by Bo BRADLEY,Cosmeranscribed on 02/09/12 09 by ITS IMPORTSign by Bo BRADLEY,Yury zacarias on 02/09/12920 Sign by: Bo BRADLEY,Samuel 66-Cij-895363:13 METABOLIC PANEL, COMPREHENSIVE Comments: A duplicate report has been generated due to demographic updateof the patient's Date of , Age, Gender, and/or Specimen Date.Please review patient results, reference intervals, and calculatedresults (15899) that may have been affected by this change.PERFORMED BY: [facility]6370 [facility] [id number] ALT (SGPT) 17 [iU]/L (Normal) Range: 0-40 [...] Glucose, Serum 84 mg/dL (Normal) Range: 65-99 56-Ubx-688788:13 CBC WITH MANUAL DIFF (18636) Comments: A duplicate report has been generated due to demographic updateof the patient's Date of , Age, Gender, and/or Specimen Date.Please review patient results, reference intervals, and calculatedresults that may have been affected by this change.PERFORMED BY: [facility] Zffdge4845 [facility] [id number] Immature Grans (Abs) 0.0 {x10E3/uL} (Normal) Range: [...] 3.77-5.28 WBC 7.1 {x10E3/uL} (Normal) Range: 4.0-10.5 89-Kic-410682:18 Homocysteine, Plasma (30397) Comments: PATIENT NOT FASTINGPERFORMED BY: creditmontoring.comSelect Specialty Hospital6370 [facility] [id number] Homocyst(e)ine, Plasma 11.4 umol/L (Normal) Range: 0.0-15.0 12-Ait-925252:18 Vitamin D Hydroxy Comments: PATIENT NOT FASTINGPERFORMED BY: creditmontoring.comSelect Specialty Hospital6370 [facility] [id number] Information: [id number] (30482) Vitamin D, 25-Hydroxy 17.7 ng/mL (Abnormal) Range: 30.0-100.0 Comments: Vitamin D deficiency has been defined by the [place] ofMedicine and an Endocrine Society practice guideline as alevel of serum 25-OH vitamin D less than 20 ng/mL (1,2).The Endocrine Society went on to further define vitamin Dinsufficiency as a level between 21 and 29 ng/mL (2).1. IOM ([place] of Medicine). 2011. Dietary reference intakes for calcium and D. Fu DC: The National Academies Press.2. Castillo MF, Yocasta NC, Janessa-Valdemar MACIEL, et al. Evaluation, treatment, and prevention of vitamin D deficiency: an Endocrine Society clinical practice guideline. JCEM. 2010; 96(7):1911-30. 31-Xdx-223426:15 BILAT SCRN DIGITAL & CAD Radiology Report [...] radiologist regarding this report, please call our 91V4xayocrz line @ Dictated on 08/30/11 1357 by Bo BRADLEY,Cosmeranscribed on 08/30/11 1421 by ITS IMPORTSign by Samuel Leal MD on 08/30/11 1422 Sign by: Samuel Leal MD 05-Arb-194501:14 DEXA BONE DENSITY STUDY (HP) Radiology Report [...] logist regarding this report, please call our 53H5rgenoyc line @ Dictated on 08/30/11 1322 by Bo BRADLEY,Cosmeranscribed on 08/30/11 1559 by ITS IMPORTSign by Bo BRADLEY,Anton aparicio on 08/30/11 1600 Sign by: Samuel Leal MD 83-Hau-69078:42 Anticardiolipin Ab, IgA, Qn Comments: PATIENT WAS FASTINGPERFORMED BY: BN [facility] Jwdtaxyluv9439 [facility] [id number] BY: CB [facility] Guhpol4220 [facility] [id number] BY: TG [facility] OCZ8516 [facility] [id number] Anticardiolipin Ab,IgA,Qn <9 {APL_U/mL} Range: 0-11 (Normal) Comments: Negative: <12 Indeterminate: 12 - 20 Low-Med Positive: >20 - 80 High Positive: >80 17-Aug-2011 Antithrombin Activity 110 % (Normal) Comments: PATIENT WAS FASTINGPERFORMED BY: LabCo[address] [id number] BY: LabCoCape Regional Medical CenterMdbgqe2918 [facility] [id number] BY: TG [facility] 9:[address] [id number] Range: 75-135 29-Jdf-50971:42 CBC With Differential/Platelet Comments: PATIENT WAS FASTINGPERFORMED BY: LabCo[address] [id number] BY: [facility] Oxwmln8302 [facility] [id number] BY: [facility] [address] [id number] Immature Grans (Abs) 0.0 {x10E3/uL} (Normal) Range: [...] 3.80-5.10 WBC 6.8 {x10E3/uL} (Normal) Range: 4.0-10.5 64-Fps-95500:42 Comp. Metabolic Panel Comments: PATIENT WAS FASTINGPERFORMED BY: BN [facility] Wdjsiezauv1869 [facility] [id number] BY: CB [facility] Owwinc1047 [facility] [id number] BY: TG [facility] (14) NHT6582 [facility] [id number] ALT (SGPT) 20 [iU]/L (Normal) Range: 0-40 [...] % (Normal) Comments: PATIENT WAS FASTINGPERFORMED BY: [employer] LabCoLearnUpon [address] [id number] BY: [employer] Klhqxj6079 [facility] [id number] BY: [employer] [facility] [address] [facility] [id number] Range: 75-130 :42 Factor V Leiden Mutation Comments: PATIENT WAS FASTINGPERFORMED BY: [facility] [address] [id number] BY: [employer] Nwljho3757 [facility] [id number] BY: [employer] [facility] YMH45[address] [id number] Factor V Leiden FVNEG3 (Normal) Comments: Result: [...] in the workup for venous thrombosis include [id number] mutation in the factor II (prothrombin) gene,protein S and C deficiency, and antithromb in deficiencies.Anticardiolipin antibody and lupus anticoagulant analysismay be appropriate for certain patients, as well ashomocysteine levels. .Contact your local [facility] for information on how to orderadditional testing if desired. .Genetic counselors are available for health care* providers to discuss results at [phone] ([phone]). .Methodology:DNA analysis of the Factor V gene [...] Anticoagulant Comp Comments: PATIENT WAS FASTINGPERFORMED BY: BN [facility] Jkqmnvmycj6354 [facility] [id number] BY: CB [facility] Cerfnz4485 [facility] [id number] BY: TG [facility] TXS7783 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 One copy of the C677T mutation and one copy of the M9630Nfgzuuvtf were identified. Population data suggest t hese [...] these results with health care providers at [phone] .The MTHFR enzyme is responsible for creating the circulatingform of folate. Folate is important in homocysteine regula-tion. Defects in the MT HFR enzyme can indirectly causeelevated homocysteine levels. The C677T mutation in theMTHFR gene can cause elevated homocysteine levels in tommy-viduals with insufficient folate, particularly when there are two mutations present. The P8824Y mutation has not beenassociated with elevated homocysteine levels unless a M848Tqeqljrqc is also present. Elevated serum homocysteine levelshave [...] 56:236-244.Kwaku Garcia (1997). Thromb Haemost 78:523- 526.Deanne and Zak. (2000). Am J Epidemiol 151:862-877. .Amol lira, Ph.D.Yady Patel, Ph.D.Emelyn Cortes, Ph.D.Sujey Muhammad, Ph.D.Monique Carter, Ph.D.Julia Escobar M.D.Val. Faye Enriquez, Ph.D. . :42 Protein C Deficiency Comments: PATIENT WAS FASTINGPERFORMED BY: [employer].Do[address] [id number] BY: [employer] Hbtptn6899 [facility] [id number] BY: [facility]ToolBe[facility] EPK9920 [facility] [id number] Protein C-Functional 147 % (Normal) Range: 74-151 Protein C Antigen 117 % (Normal) Range: 70-140 :42 Protein S Panel Comments: PATIENT WAS FASTINGPERFORMED BY: SafeTool[address] [id number] BY: SafeToolCape Regional Medical CenterOwzjek7095 [facility] [id number] BY: creditmontoring.comMadison Medical Center TTY2207 [facility] [id number] Protein S-Functional 78 % (Normal) Range: 60-145 Protein S, Free 74 % (Normal) Range: 56-124 Protein S, Total 101 % (Normal) Range: 58-150 TSH 1.550 {uIU/mL} Comments: PATIENT WAS FASTINGPERFORMED BY: SafeTool[address] [id number] BY: CB [facility] Heieta6824 [facility] [id number] BY: TG [facility] :42 (Normal) IPH8464 Ryder WhitakerCOATESVILLE [facility] [id number] Range: 0.450-4.500 Vitamin D, 25-Hydroxy 20.1 ng/mL Comments: PATIENT WAS FASTINGPERFORMED BY: [facility] Ywlisplaup3328 [facility] [id number] BY: CB [facility] Vozhsa6158 [facility] [place] [id number] BY: TG [facility] :42 (Abnormal) GRI1475 Ryder WhitakerCOATESVILLE [facility] [id number] Range: 30.0-100.0 Comments: Vitamin D deficiency has been defined by the [place] ofMedicine and an Endocrine Society practice guideline as alevel of serum 25-OH vitamin D less than 20 ng/mL (1,2).The Endocrine Society went on to further define vitamin Dinsufficiency as a level between 21 and 29 ng/mL (2).1. IOM ([place] of [employer]). 2011. Dietary reference intakes for calcium and D. [place]: The National Academies Press.2. Castillo MF, Yocasta NC, Jerri MACIEL, et al. Evaluation, treatment, and prevention of vitamin D deficiency: an Endocrine Society clinical practice guideline. JCEM. 2010; 96(7):1911-30. 24-Use-600237:01 CHEST WITHOUT CONTRAST Radiology Report See Note [...] by JUANITA CARRERO MD BTranscribed on 06/29/11 151 by ITS IMPORTSign by JUANITA CARRERO MD on 06/29/111511 Sign by: JUANITA CARRERO MD 78-Shp-335019:02 PT (PROTHROMBIN TIME) Comments: PATIENT NOT FASTINGPERFORMED BY: [facility]6370 [facility] [id number] Information: [id number] ([id number]) Prothrombin Time 31.0 {sec} (Abnormal) Range: 8.7-11.5 Comments: Effective June 20, 2011, the reference interval will be changing to: 9.1 - 12.0 INR 2.9 (Abnormal) Range: 0.8-1.2 Comments: Reference interval is for non-anticoagulated patients. . Suggested INR therapeutic range for Vitamin K anta gonist therapy: Standard Dose (moderate intensity therapeutic range): 2.0 - 3.0 Higher intensity therapeutic range 2.5 - 3.5 70-Qik-214384:29 PT (PROTHROMBIN TIME) Comments: PATIENT NOT FASTINGPERFORMED BY: [facility]6[address] [facility] [id number] Information: [id number] ([id number]) Prothrombin Time 23.9 {sec} (Abnormal) Range: 8.7-11.5 Comments: Effective June 20, 2011, the reference interval will be changing to: 9.1 - 12.0 INR 2.3 (Abnormal) Range: 0.8-1.2 Comments: Reference interval is for non-anticoagulated patients. . Suggested INR therapeutic range for Vitamin K anta gonist therapy: Standard Dose (moderate intensity therapeutic range): 2.0 - 3.0 Higher intensity therapeutic range 2.5 - 3.5 89-Dql-221942:21 PT (PROTHROMBIN TIME) Comments: PATIENT NOT FASTINGPERFORMED BY: [facility]6[address] [facility] [id number] Information: [id number] ([id number]) Prothrombin Time 19.7 {sec} (Abnormal) Range: 8.7-11.5 Comments: Effective June 20, 2011, the reference interval will be changing to: 9.1 - 12.0 INR 1.9 (Abnormal) Range: 0.8-1.2 Comments: Reference interval is for non-anticoagulated patients. . Suggested INR therapeutic range for Vitamin K anta gonist therapy: Standard Dose (moderate intensity therapeutic range): 2.0 - 3.0 Higher intensity therapeutic range 2.5 - 3.5 49-Xvz-729444:40 PT (PROTHROMBIN TIME) Comments: PATIENT NOT FASTINGPERFORMED BY: [facility]6[address] [facility] [id number] Information: [id number] ([id number]) Prothrombin Time 38.3 {sec} (Abnormal) Range: 8.7-11.5 INR 3.6 (Abnormal) Range: 0.8-1.2 Comments: Client Requested Flag Reference interval is for non- anticoagulated patients. . Suggested INR therapeutic ra nge for Vitamin K antagonist therapy: Standard Dose (moderate intensity therapeutic range): 2.0 - 3.0 Higher intensity therapeutic range 2.5 - 3.5 46-Sqg-034689:08 PT (PROTHROMBIN TIME) (12085) Comments: PATIENT NOT FASTINGPERFORMED BY: [facility]6[address] [facility] [id number] Prothrombin Time 32.2 {sec} (Abnormal) Range: 8.7-11.5 INR 3.1 (Abnormal) Range: 0.8-1.2 Comments: Reference interval is for non-anticoagulated patients. . Suggested INR therapeutic range for Vitamin K anta gonist therapy: Standard Dose (moderate intensity therapeutic range): 2.0 - 3.0 Higher intensity therapeutic range 2.5 - 3.5 :14 PT (PROTHROMBIN TIME) Comments: PATIENT NOT FASTINGPERFORMED BY: [facility]6[address] [facility] [id number] Information: [id number] ([id number]) Prothrombin Time 25.0 {sec} (Abnormal) Range: 8.7-11.5 INR 2.4 (Abnormal) Range: 0.8-1.2 Comments: Reference interval is for non-anticoagulated patients. . Suggested INR therapeutic range for Vitamin K anta gonist therapy: Standard Dose (moderate intensity therapeutic range): 2.0 - 3.0 Higher intensity therapeutic range 2.5 - 3.5 :25 PT (PROTHROMBIN TIME) Comments: PATIENT NOT FASTINGPERFORMED BY: [facility]6[address] [facility] [id number] Information: [id number] ([id number]) Prothrombin Time 35.1 {sec} (Abnormal) Range: 8.7-11.5 INR 3.3 (Abnormal) Range: 0.8-1.2 Comments: Reference interval is for non-anticoagulated patients. . Suggested INR therapeutic range for Vitamin K anta gonist therapy: Standard Dose (moderate intensity therapeutic range): 2.0 - 3.0 Higher intensity therapeutic range 2.5 - 3.5 :48 PT (PROTHROMBIN TIME) Comments: PATIENT NOT FASTINGPERFORMED BY: [place] [address]7870 [facility] [id number] Information: [id number] ([id number]) Prothrombin Time 28.1 {sec} (Abnormal) Range: 8.7-11.5 INR 2.6 (Abnormal) Range: 0.8-1.2 Comments: Reference interval is for non-anticoagulated patients. . Suggested INR therapeutic range for Vitamin K anta gonist therapy: Standard Dose (moderate intensity therapeutic range): 2.0 - 3.0 Higher intensity therapeutic range 2.5 - 3.5 :09 PT (PROTHROMBIN TIME) Comments: PATIENT NOT FASTINGPERFORMED BY: [place] 3457870 [facility] [id number] Information: [id number] ([id number]) Prothrombin Time 25.4 {sec} (Abnormal) Range: 8.7-11.5 INR 2.4 (Abnormal) Range: 0.8-1.2 Comments: Reference interval is for non-anticoagulated patients. . Suggested INR therapeutic range for Vitamin K anta gonist therapy: Standard Dose (moderate intensity therapeutic range): 2.0 - 3.0 Higher intensity therapeutic range 2.5 - 3.5 :45 PT (PROTHROMBIN TIME) Comments: PATIENT NOT FASTINGPERFORMED BY: [place] 3457870 [facility] [id number] Information: [id number] ([id number]) Prothrombin Time 26.1 {sec} (Abnormal) Range: 8.7-11.5 INR 2.4 (Abnormal) Range: 0.8-1.2 Comments: Reference interval is for non-anticoagulated patients. . Suggested INR therapeutic range for Vitamin K anta gonist therapy: Standard Dose (moderate intensity therapeutic range): 2.0 - 3.0 Higher intensity therapeutic range 2.5 - 3.5 :06 Prothrombin Time (PT) Comments: PERFORMED BY: [facility]6[address] [facility] [id number] Prothrombin Time 25.8 {sec} (Abnormal) Range: 8.7-11.5 INR 2.4 (Abnormal) Range: 0.8-1.2 Comments: Reference interval is for non-anticoagulated patients. . Suggested INR therapeutic range for Vitamin K anta gonist therapy: Standard Dose (moderate intensity therapeutic range): 2.0 - 3.0 Higher intensity therapeutic range 2.5 - 3.5 :56 PT (PROTHROMBIN TIME) Comments: PATIENT NOT FASTINGPERFORMED BY: [facility]6[address] [facility] [id number] Information: [id number] ([id number]) Prothrombin Time 18.9 {sec} (Abnormal) Range: 8.7-11.5 INR 1.8 (Abnormal) Range: 0.8-1.2 Comments: Reference interval is for non-anticoagulated patients. . Suggested INR therapeutic range for Vitamin K anta gonist therapy: Standard Dose (moderate intensity therapeutic range): 2.0 - 3.0 Higher intensity therapeutic range 2.5 - 3.5 :14 Prothrombin Time (PT) Comments: PERFORMED BY: [facility]6[address] [facility] [id number] Prothrombin Time 29.7 {sec} (Abnormal) Range: 8.7-11.5 INR 2.8 (Abnormal) Range: 0.8-1.2 Comments: Reference interval is for non-anticoagulated patients. . Suggested INR therapeutic range for Vitamin K anta gonist therapy: Standard Dose (moderate intensity therapeutic range): 2.0 - 3.0 Higher intensity therapeutic range 2.5 - 3.5 :05 Prothrombin Time (PT) Comments: PERFORMED BY: [place] 3457870 [facility] [id number] Prothrombin Time 38.0 {sec} (Abnormal) Range: 8.7-11.5 INR 3.5 (Abnormal) Range: 0.8-1.2 Comments: Reference interval is for non-anticoagulated patients. . Suggested INR therapeutic range for Vitamin K anta gonist therapy: Standard Dose (moderate intensity therapeutic range): 2.0 - 3.0 Higher intensity therapeutic range 2.5 - 3.5 16-Zeq-662933:45 Prothrombin Time (PT) Comments: PERFORMED BY: [facility]6[address] [facility] [id number] Prothrombin Time 32.4 {sec} (Abnormal) Range: 8.7-11.5 INR 3.0 (Abnormal) Range: 0.8-1.2 Comments: Reference interval is for non-anticoagulated patients. . Suggested INR therapeutic range for Vitamin K anta gonist therapy: Standard Dose (moderate intensity therapeutic range): 2.0 - 3.0 Higher intensity therapeutic range 2.5 - 3.5 :46 Prothrombin Time (PT) Comments: PERFORMED BY: [place] [id number] [facility] [id number] Prothrombin Time 34.4 {sec} (Abnormal) Range: 8.7-11.5 INR 3.2 (Abnormal) Range: 0.8-1.2 Comments: Reference interval is for non-anticoagulated patients. . Suggested INR therapeutic range for Vitamin K anta gonist therapy: Standard Dose (moderate intensity therapeutic range): 2.0 - 3.0 Higher intensity therapeutic range 2.5 - 3.5 6-Fpj-629605:39 Prothrombin Time (PT) Comments: PERFORMED BY: [facility]ToolAdvanced [facility] Hospital of Southern New MexicoNikdef6288 [facility] [id number] Prothrombin Time 31.7 {sec} (Abnormal) Range: 8.7-11.5 INR 3.0 (Abnormal) Range: 0.8-1.2 Comments: Reference interval is for non-anticoagulated patients. . Suggested INR therapeutic range for Vitamin K anta gonist therapy: Standard Dose (moderate intensity therapeutic range): 2.0 - 3.0 Higher intensity therapeutic range 2.5 - 3.5 11-Ajb-916444:03 Prothrombin Time (PT) Comments: PERFORMED BY: [employer] Ywavbn9361 [facility] [id number] Prothrombin Time 31.1 {sec} (Abnormal) Range: 8.7-11.5 INR 2.9 (Abnormal) Range: 0.8-1.2 Comments: Reference interval is for non-anticoagulated patients. . Suggested INR therapeutic range for Vitamin K anta gonist therapy: Standard Dose (moderate intensity therapeutic range): 2.0 - 3.0 Higher intensity therapeutic range 2.5 - 3.5 27-Pdz-361775:00 Prothrombin Time (PT) Comments: PERFORMED BY: [facility]ToolAdvanced [facility] Hospital of Southern New MexicoTkubdd0604 [facility] [id number] Prothrombin Time 31.3 {sec} (Abnormal) Range: 8.7-11.5 INR 2.9 (Abnormal) Range: 0.8-1.2 Comments: Reference interval is for non-anticoagulated patients. . Suggested INR therapeutic range for Vitamin K anta gonist therapy: Standard Dose (moderate intensity therapeutic range): 2.0 - 3.0 Higher intensity therapeutic range 2.5 - 3.5 94-Msy-708863:47 Prothrombin Time (PT) Comments: PERFORMED BY: [facility]ToolCape Regional Medical CenterQkhcvp8137 [facility] [id number] Prothrombin Time 20.6 {sec} (Abnormal) Range: 8.7-11.5 INR 1.9 (Abnormal) Range: 0.8-1.2 Comments: Reference interval is for non-anticoagulated patients. . Suggested INR therapeutic range for Vitamin K anta gonist therapy: Standard Dose (moderate intensity therapeutic range): 2.0 - 3.0 Higher intensity therapeutic range 2.5 - 3.5 :36 Prothrombin Time (PT) Comments: PERFORMED BY: [employer]6370 [facility] [id number] Prothrombin Time 27.7 {sec} (Abnormal) Range: 8.7-11.5 INR 2.6 (Abnormal) Range: 0.8-1.2 Comments: Reference interval is for non-anticoagulated patients. . Suggested INR therapeutic range for Vitamin K anta gonist therapy: Standard Dose (moderate intensity therapeutic range): 2.0 - 3.0 Higher intensity therapeutic range 2.5 - 3.5 :32 Prothrombin Time (PT) Comments: PERFORMED BY: [employer]6370 [facility] [id number] Prothrombin Time 44.8 {sec} (Abnormal) Range: 8.7-11.5 INR 4.2 (Abnormal) Range: 0.8-1.2 Comments: Client Requested Flag Reference interval is for non- anticoagulated patients. . Suggested INR therapeutic ra nge for Vitamin K antagonist therapy: Standard Dose (moderate intensity therapeutic range): 2.0 - 3.0 Higher intensity therapeutic range 2.5 - 3.5 :39 CHEST WITH CONTRAST Radiology Report See Note (Normal) Comments: Exam Number: [id number] LINICAL:This is a 64-year-old female patient with [...] Report See Note (Normal) Comments: Exam Number: [id number] AMMOGRAPHY - BILATERAL SCREENING INDICATION:Routine annual screening [...] attaching a ResultCode to this exam. ADDENDUM: [id number] HPBI/MDS Reported By: VIKTORIYA MAJANO M.D. 18-Izx-201920:55 Prothrombin Time (PT) Comments: PERFORMED BY: [facility]70 [facility] [id number] Prothrombin Time 29.1 {sec} (Abnormal) Range: 8.7-11.5 INR 2.7 (Abnormal) Range: 0.8-1.2 Comments: Reference interval is for non-anticoagulated patients. . Suggested INR therapeutic range for Vitamin K anta gonist therapy: Standard Dose (moderate intensity therapeutic range): 2.0 - 3.0 Higher intensity therapeutic range 2.5 - 3.5 67-Pei-048018:29 Prothrombin Time (PT) Comments: PERFORMED BY: [employer]6370 [facility]Select [facility] [id number] Prothrombin Time 30.2 {sec} (Abnormal) Range: 8.7-11.5 INR 2.8 (Abnormal) Range: 0.8-1.2 Comments: Reference interval is for non-anticoagulated patients..Suggested INR therapeutic range for Vitamin Kantagonist therapy:Standard Dose (moderate intensitytherapeutic range): 2.0 - 3.0Higher intensity therapeutic range 2.5 - 3.5 30-Sqo-408259:36 Prothrombin Time (PT) Comments: PERFORMED BY: [employer] [facility] [id number] Prothrombin Time 23.4 {sec} (Abnormal) Range: 8.7-11.5 INR 2.2 (Abnormal) Range: 0.8-1.2 Comments: Reference interval is for non-anticoagulated patients..Suggested INR therapeutic range for Vitamin Kantagonist therapy:Standard Dose (moderate intensitytherapeutic range): 2.0 - 3.0Higher intensity therapeutic range 2.5 - 3.5 06-Cxd-970721:04 PT (Prothrobim Time) Comments: PATIENT NOT FASTINGPERFORMED BY: [employer] Itolxl9267 [facility] [id number] Information: [id number] ([id number]) Prothrombin Time 31.7 {sec} (Abnormal) Range: 8.7-11.5 INR 3.0 (Abnormal) Range: 0.8-1.2 Comments: Reference interval is for non-anticoagulated patients..Suggested INR therapeutic range for Vitamin Kantagonist therapy:Standard Dose (moderate intensitytherapeutic range): 2.0 - 3.0Higher intensity therapeutic range 2.5 - 3.5 75-Qvr-22656:34 LIPID PANEL (11588) Comments: PATIENT WAS FASTINGPERFORMED BY: SafeToolCape Regional Medical CenterYmmavq3373 [facility] [id number] HDL Cholesterol 61 mg/dL (Normal) Comments: According [...] COMPREHENSIVE Comments: PATIENT WAS FASTINGPERFORMED BY: [facility] Usrsmx1269 [facility] [id number] ([id number]) ALT (SGPT) 19 [iU]/L (Normal) Range: 0-40 [...] Glucose, Serum 82 mg/dL (Normal) Range: 65-99 :34 CBC WITH MANUAL DIFF Comments: PATIENT WAS FASTINGPERFORMED BY: [facility] Hrknjy3655 [place] MeetMoiAtrium Health [facility]ly [id number] Information: ADD [id number] AND DRAW FEE [id number] [id number] ([id number]) Immature Grans (Abs) 0.0 {x10E3/uL} (Normal) Range: [...] (Normal) Range: 4.0-10.5 :34 Vitamin D Hydroxy (88293) Comments: PATIENT WAS FASTINGPERFORMED BY: [facility] Lnukuq0027 [facility] [id number] Vitamin D, 25-Hydroxy 48.1 ng/mL (Normal) Range: 32.0-100.0 Comments: Recent studies consider the lower limit of 32.0 ng/mL to be athreshold for optimal health.Simon NUNEZ. J Nutr. 2004;135(2):317-22. 74-Qsb-393506:18 Prothrombin Time (PT) Comments: PERFORMED BY: [employer] Tznrmq1760 [facility] [id number] Prothrombin Time 26.5 {sec} (Abnormal) Range: 8.7-11.5 INR 2.7 (Abnormal) Range: 0.8-1.2 Comments: Reference interval is for non-anticoagulated patients..Suggested INR therapeutic range for Vitamin Kantagonist therapy:Standard Dose (moderate intensitytherapeutic range): 2.0 - 3.0Higher intensity therapeutic range 2.5 - 3.5 70-Enj-298991:55 Prothrombin Time (PT) Comments: PERFORMED BY: [employer] Wqokhf7545 [facility] [id number] Prothrombin Time 27.7 {sec} (Abnormal) Range: 8.7-11.5 INR 2.8 (Abnormal) Range: 0.8-1.2 Comments: Reference interval is for non-anticoagulated patients..Suggested INR therapeutic range for Vitamin Kantagonist therapy:Standard Dose (moderate intensitytherapeutic range): 2.0 - 3.0Higher intensity therapeutic range 2.5 - 3.5 9-Awg-973017:49 Prothrombin Time (PT) Comments: PERFORMED BY: SafeToolCape Regional Medical CenterNbzggq8903 [facility] [id number] Prothrombin Time 26.0 {sec} (Abnormal) Range: 8.7-11.5 INR 2.6 (Abnormal) Range: 0.8-1.2 Comments: Reference interval is for non-anticoagulated patients..Suggested INR therapeutic range for Vitamin Kantagonist therapy:Standard Dose (moderate intensitytherapeutic range): 2.0 - 3.0Higher intensity therapeutic range 2.5 - 3.5 :37 CHEST WITH CONTRAST Radiology Report See Note (Normal) Comments: Exam Number: [id number] CLINICAL:Fluoroscopy study for pulmonary embolism and lymphadenopathy [...] isadvised.Emphysema.No mediastinal lymphadenopathy. Reported By: DONELL FERGUSON 7-Hof-916319:16 Prothrombin Time (PT) Comments: PERFORMED BY: [employer]70 [facility]Select [facility] [id number] Prothrombin Time 25.2 {sec} (Abnormal) Range: 8.7-11.5 INR 2.6 (Abnormal) Range: 0.8-1.2 Comments: Reference interval is for non-anticoagulated patients..Suggested INR therapeutic range for Vitamin Kantagonist therapy:Standard Dose (moderate intensitytherapeutic range): 2.0 - 3.0Higher intensity therapeutic range 2.5 - 3.5 61-Aoc-918398:50 Prothrombin Time (PT) Comments: PERFORMED BY: [employer]6370 [facility]eb[facility] [id number] Prothrombin Time 29.3 {sec} (Abnormal) Range: 8.7-11.5 INR 3.0 (Abnormal) Range: 0.8-1.2 Comments: Reference interval is for non-anticoagulated patients..Suggested INR therapeutic range for Vitamin Kantagonist therapy:Standard Dose (moderate intensitytherapeutic range): 2.0 - 3.0Higher intensity therapeutic range 2.5 - 3.5 37-Trt-053029:07 Prothrombin Time (PT) Comments: PERFORMED BY: [email or web address] Hospital6370 [facility] [id number] Prothrombin Time 19.4 {sec} (Abnormal) Range: 8.7-11.5 INR 1.9 (Abnormal) Range: 0.8-1.2 Comments: Reference interval is for non-anticoagulated patients..Suggested INR therapeutic range for Vitamin Kantagonist therapy:Standard Dose (moderate intensitytherapeutic range): 2.0 - 3.0Higher intensity therapeutic range 2.5 - 3.5 38-Kso-904370:16 Prothrombin Time (PT) Comments: PERFORMED BY: [facility]montoring.comSelect [facility] Hospital6370 [facility] [id number] Prothrombin Time 21.6 {sec} (Abnormal) Range: 8.7-11.5 INR 2.2 (Abnormal) Range: 0.8-1.2 Comments: Reference interval is for non-anticoagulated patients..Suggested INR therapeutic range for Vitamin Kantagonist therapy:Standard Dose (moderate intensitytherapeutic range): 2.0 - 3.0Higher intensity therapeutic range 2.5 - 3.5 71-Wrh-15341:21 MYOCARD PERF STRESS/REST MULT Radiology Report See Note (Normal) Comments: Exam Number: [id number] REGADENOSON CARDIOLITE STUDY HISTORYThis is a 64-year-old female who presents with shortness of breath. TECHNIQUEThe patient was injected with 10.9 mCi of Tc99m [facility] SPECT images were acquired in the [...] of infarct orinducible ischemia. Reported By: OSCAR PIERRE M.D. 80-Cjj-954157:41 Prothrombin Time (PT) Comments: PERFORMED BY: [employer]6370 [facility] [id number] Prothrombin Time 19.6 {sec} Range: 8.7-11.5 (Abnormal) INR 2.0 (Abnormal) Range: 0.8-1.2 Comments: Reference interval is for non-anticoagulated patients..Suggested INR therapeutic range for Vitamin Kantagonist therapy:Standard Dose (moderate intensitytherapeutic range): 2.0 - 3.0Higher intensity therapeutic range 2.5 - 3.5 08-Oct-2009 Vitamin D, 25-Hydroxy 21.4 ng/mL Comments: PERFORMED BY: [employer]70 [facility] [id number] 11:41 (Abnormal) Range: 32.0-100.0 Comments: Recent studies consider the lower limit of 32.0 ng/mL to be athreshold for optimal health.Simon NUNEZ. J Nutr. 2004;135(2):317-22. 7-Exf-594082:50 Prothrombin Time (PT) Comments: PERFORMED BY: [employer]6370 [facility] [id number] Prothrombin Time 18.2 {sec} (Abnormal) Range: 8.7-11.5 INR 1.8 (Abnormal) Range: 0.8-1.2 Comments: Reference interval is for non-anticoagulated patients..Suggested INR therapeutic range for Vitamin Kantagonist therapy:Standard Dose (moderate intensitytherapeutic range): 2.0 - 3.0Higher intensity therapeutic range 2.5 - 3.5 1-Zmi-214676: LDH 201 [iU]/L (Normal) Comments: PERFORMED BY: [employer]6370 [facility] [id number] Range: 100-250 9-Pqz-585447:33 Prothrombin Time (PT) Comments: PERFORMED BY: PRANEETH [facility] Qlzsek1733 [facility] [id number] Prothrombin Time 14.6 {sec} (Abnormal) Range: 8.7-11.5 INR 1.4 (Abnormal) Range: 0.8-1.2 Comments: Reference interval is for non-anticoagulated patients..Suggested INR therapeutic range for Vitamin Kantagonist therapy:Standard Dose (moderate intensitytherapeutic range): 2.0 - 3.0Higher intensity therapeutic range 2.5 - 3.5 LDH 227 U/L (Abnormal) Range: 100-190 :50 :00 A-CARDIO [id number] ANTICARDIO IgG < 6 {GPL_U/mL} (Normal) Range: 0-10 Comments: Negative: <11Indeterminate: 11 - 19Low-Med Positive: 20 - 80Positive: >80 ANTICARDIO IgM 7 {MPL_U/mL} (Normal) Range: 0-9 Comments: Negative: <10Indeterminate: 10 - 19Low-Med Positive: 20 - 80Positive: >80Performed At: [place] [id number] [facility], [place] [id number] : C-REACTIVE PROT < 2.90 mg/L (Normal) [...] SED RATE 11 mm/h (Normal) Range: 0-30 :49 PET/CT TUMOR BASE TO MID THIGH Radiology Report See Note (Normal) Comments: Exam Number: [id number] EXAM: Body PET study INDICATIONS: A 64-year-old [...] crista titativecriteria for centrally located thoracic/mediastinal viable neoplasm.(Maxine et al, Journal of Clinical Oncology 16:2142, 1998). 3. Heterogeneous radiopharmaceutical concentration noted i n thebilateral supraclavicular regions is consistent with the presence ofvisualization of brown adipose tissue, with associated thoracicparavertebral muscle tension artifact. (Cristiana, [facility] al of Nuclear Medicine 29:1393, 2002). Reported By: VERÓNICA CHAPA :15 PRO TIME Comments: CALL RESULTS TO DR. PEACOCK [phone] CALLED TO Jerome RAMON 09/10/09 1149 LEO OSORIO.REPORT READ BACK BY SAME.; see not in emr to DF INR 3.2 (Normal) PROTIME 37.3 s (Abnormal) Range: 9.1-11.7 :47 TSH (30238) Comments: PATIENT NOT FASTINGPERFORMED BY: [facility] Qrnzjt0418 SpringbotAt[facility] [id number] TSH 1.520 {uIU/mL} (Normal) Range: 0.450-4.500 :47 CBC WITH MANUAL DIFF Comments: PATIENT NOT FASTINGPERFORMED BY: CB [facility] Swhgtl3147 FloresStrategic Funding SourceAtrium Health Stanly [id number] Information: [id number] ([id number]) Baso (Absolute) 0.0 {x10E3/uL} (Normal) Range: 0.0-0.2 [...] 3.80-5.10 WBC 11.1 {x10E3/uL} (Abnormal) Range: 4.0-10.5 3-Iyd-214253:47 METABOLIC PANEL, COMPREHENSIVE Comments: PATIENT NOT FASTINGPERFORMED BY: [facility] Uebfod3716 [facility] [id number] ([id number]) ALT (SGPT) 38 [iU]/L (Normal) Range: 0-40 [...] Glucose, Serum 94 mg/dL (Normal) Range: 65-99 6-Meb-306299:47 LDH (LD) (LACTATE DEHYDROGENASE) Comments: PATIENT NOT FASTINGPERFORMED BY: [facility]amedicaSelect [facility] [id number] ([id number]) LDH 410 [iU]/L (Abnormal) Range: 100-250 8-Gnd-002161:47 URINE HARJIT CULTURE (CRITSA COL Comments: PATIENT NOT FASTINGPERFORMED BY: [employer] LabLimos.comSelect Specialty Hospital [facility] [id number] COUNT) ([id number]) Result 1 MUG (Normal) Comments: Mixed urogenital flora3,000 Colonies/mL . Urine Final report (Normal) Culture,Comprehensive 60-Vwv-83881:49 VIT D,25 71958 43.4 ng/mL (Normal) Range: 32.0-100.0 Comments: Recent studies consider the lower limit of 32.0 ng/mL to jaci threshold for optimal health.Montes . J Nutr. 2004;135(2):317-22.Performed At: [employer]6370 IZP TechnologiesWabasso, [place] [id number]-New-[id number]:4 VIT D,25 15829 26.2 ng/mL (Abnormal) Range: 32.0-100.0 0 Comments: Recent studies consider the lower limit of 32.0 ng/mL to jaci threshold for optimal health.Montes BW. J Nutr. 2004;135(2):317-22.Performed At: [place] [id number] 75-Dhz-711354:26 BILAT SCRN DIGITAL & CAD Radiology Report See Note (Normal) Comments: Exam Number: [id number] MAMMOGRAM, BILATERAL SCREENING DIGITAL AND CAD HISTORYRoutine [...] mammograms werealso examined with computer-aided detection software ([employer], [employer] Reported By: VIKTORIYA MAJANO M.D. 01-Kuh-437197:25 DEXA BONE DENSITY STUDY (HP) Radiology Report See Note (Normal) Comments: Exam Number: [id number] BONE DENSITOMETRY HISTORYOsteopenia. TECHNIQUE Bone densitometry of [...] left hip. Reported By: VIKTORIYA MAJANO M.D. :20 CBCD,SMEAR DIFF BAND 1 % (Normal) Range: [...] {uIU/mL} (Normal) Range: 0.34-4.82 :20 VIT D,25 83129 21.4 ng/mL (Abnormal) Range: 32.0-100.0 Comments: Recent studies consider the lower limit of 32.0 ng/mL to jaci threshold for optimal health.Simon NUNEZ. J Nutr. 2004;135(2):317-22.Performed At: [facility] [place], [place] [id number] :20 VITAMIN B12 685 pg/mL (Normal) Range: 211-911 82-Xsc-970954:11 Thin prep Pap (51775) Comments: Source.............CervicalLMP / Prev Treat...YAV=[id number]. of containers..01 CYTYC Thin Prep VialPATIENT NOT FASTINGClinical Information: ADD [id number] PERFORMED BY: [facility] [id number] . . (Normal) DIAGNOSIS: SPRCS (Normal) Comments: NEGATIVE FOR INTRAEPITHELIAL LESION AND MALIGNANCY.CELLULAR CHANGES ASSOCIATED WITH ATROPHY ARE PRESENT.Satisfactory for evaluation. Endocervical component may not bedistinguished in cases of atrophy.V 72.31 ; Routine gynecological examinationSchanning Elam, Logistics Assistant (ASCP)Clari Hernandez, Supervisory Logistics Assistant (ASCP) Note: PAPSMR (Normal) Comments: The Pap [...] resulttherefore, no HPV testing was performed. . 8-Rhk-994203:48 KNEE,4 OR MORE VIEWS Radiology Report See Note (Normal) Comments: Exam Number: [id number] FOUR VIEWS LEFT KNEE AP, LATERAL, TUNNEL [...] Plan of Care Name Dates Details Instructions Elevated hemoglobin A1c : Eprescribed prescriptions (G8553) [...] (KF) Indication: Well woman exam Planned Observations METABOLIC PANEL, COMPREHENSIVE (33630)Indication: Elevated hemoglobin A1c On: 62-Yvj-65537:50 Request CBC with auto diff (90309)Indication: Gastroesophageal reflux disease without esophagitis On: :07 Request METABOLIC PANEL, COMPREHENSIVE (93898)Indication: Gastroesophageal reflux disease without esophagitis On: :07 Request LIPID PANEL (11351)Indication: Other hyperlipidemia On: :06 Request TSH (30975)Indication: Thyroid Nodule On: :06 Request Vitamin D Hydroxy (32880)Indication: Vitamin D deficiency, unspecified On: :06 Request CBC W/AUTO DIFF WBC (84988)Indication: Osteopenia of multiple sites On: :14 Request METABOLIC PANEL, COMPREHENSIVE (55858)Indication: Osteopenia of multiple sites On: :14 Request Vitamin D Hydroxy (60284)Indication: Vitamin D deficiency, unspecified On: :13 Request LIPID PANEL (10464)Indication: Other hyperlipidemia On: :13 Request TSH (29834)Indication: Thyroid Nodule On: :13 Request METABOLIC PANEL, COMPREHENSIVE (57483)Indication: Other hyperlipidemia On: 15-Kvv-743587:28 Request LIPID PANEL (15894)Indication: Other hyperlipidemia On: 86-Feg-590859:27 Request Vitamin D Hydroxy (66401)Indication: Vitamin D deficiency, unspecified On: 00-Ntu-956830:20 Request Influenza A&B Viral Culture (56848)Indication: Fever and chills On: 06-Aug-20129:48 Request Comments: positive BHad flu shot Vitamin D Hydroxy (38952)Indication: Osteopenia of multiple sites On: 46-Dcc-080869:15 Request Protein S Profile (74904)Indication: Pulmonary embolism (Renamed from PE (pulmonary embolism)) On: :13 Request Protein C Profile (72987)Indication: Pulmonary embolism (Renamed from PE (pulmonary embolism)) On: :13 Request MTHFR (07301)Indication: Pulmonary embolism (Renamed from PE (pulmonary embolism)) On: :13 Request Antiphospholipid atb (90638)Indication: Pulmonary embolism (Renamed from PE (pulmonary embolism)) On: :13 Request ANTICOAG ANTTHROMB III & ASSAY (80656)Indication: Pulmonary embolism (Renamed from PE (pulmonary embolism)) On: :13 Request ANTITHROMBIN III ACTIVTY (02656)Indication: Pulmonary embolism (Renamed from PE (pulmonary embolism)) On: :13 Request CLOTTING FACTOR II (76121)Indication: Pulmonary embolism (Renamed from PE (pulmonary embolism)) On: :12 Request Factor V Leiden (48117)Indication: Pulmonary embolism (Renamed from PE (pulmonary embolism)) On: :12 Request PTT PLASMA SUBSTITUTION (89638) #[id number]: Pulmonary embolism (Renamed from PE (pulmonary embolism)) On: :12 Request PAL VIPER VENOM-DILUT (29369) #[id number]: Pulmonary embolism (Renamed from PE (pulmonary embolism)) On: :12 Request TSH (99673)Indication: Osteopenia of multiple sites On: :09 Request METABOLIC PANEL, COMPREHENSIVE (33793)Indication: Pulmonary embolism (Renamed from PE (pulmonary embolism)) On: :09 Request CBC WITH MANUAL DIFF (23313)Indication: Pulmonary embolism (Renamed from PE (pulmonary embolism)) On: :09 Request Vitamin D Hydroxy (05877)Indication: Vitamin D deficiency, unspecified On: :09 Request Vitamin D Hydroxy (24669)Indication: Vitamin D deficiency, unspecified On: 1-Ogn-575022:43 Request CBC WITH MANUAL DIFF (76691)Indication: Anemia, unspecified On: 22-Yxk-754445:22 Request LDH (LD) (LACTATE DEHYDROGENASE) (63033)Indication: Elevated LFTs On: 74-Vti-796785:22 Request Urinalysis, Office (62574)Indication: Low back pain (Renamed from LBP (low back pain)) On: 7-Hft-306925:43 Request Vitamin D Hydroxy (04820)Indication: vit d def On: 05-Buf-109785:11 Request Vitamin D Hydroxy (40906)Indication: vit d def On: 0-Nou-061661:14 Request LIPID PANEL (66251)Indication: Well woman exam On: :58 Request METABOLIC PANEL, COMPREHENSIVE (76758)Indication: Osteopenia of multiple sites On: :58 Request CBC WITH MANUAL DIFF (13189)Indication: Osteopenia of multiple sites On: :58 Request Vitamin D Hydroxy (22049)Indication: Osteopenia of multiple sites On: :56 Request TSH (87854)Indication: Osteopenia of multiple sites On: :55 Request VITAMIN B-12 (CYANOCOBALAMIN) (58746)Indication: Paresthesia On: :55 Request Planned Encounters Medical; [facility] Exam (Doctor) - maybe a few min late On: 02-Jul-2018 13:30 [facility] Fast DO, Isabella A Fast DO, Isabella A Planned Procedures Ultrasound - ThyroidBy: Fast DO, On: 30-Mar-2018 Intent Isabella A Fast DO, Isabella A SCREENING DIGITAL TOMOSYNTHESIS OF On: 30-Mar-2018 Intent BREAST (47074)By: Fast DO, Isabella A Fast DO, Isabella A Ultrasound - ThyroidBy: Fast DO, On: 24-Nov-2017 Intent Isabella A Fast DO, Isabella A Comments: end december SCREENING DIGITAL TOMOSYNTHESIS OF On: 24-Nov-2017 Intent BREAST (82257)By: Fast DO, Isabella A Fast DO, Isabella A ELECTROCARDIOGRAM, COMPLETE (ECG) On: 19-Jul-2017 Intent (51588)By: Fast DO, Isabella A Fast DO, Comments: ekg showed normal sinus rhythym, normal axis, no acute st/t wave changes prolonged qt unchanged Isabella A Ultrasound - ThyroidBy: Fast DO, On: 13-Dec-2016 Intent Isabella A Fast DO, Isabella A Comments: due 01/17 SCREENING DIGITAL TOMOSYNTHESIS OF On: 13-Dec-2016 Intent BREAST (88037)By: Fast DO, Isabella A Comments: due 01/17 Fast DO, Isabella A MRI OF BRAIN WITH AND WITHOUT On: 19-Aug-2016 Intent CONTRAST (58599)By: Fast DO, Isabella A Fast DO, Isabella A Nerve ConductionBy: Fast DO, Isabella A On: 19-Aug-2016 Intent Fast DO, Isabella A Comments: right arm EMGBy: Fast DO, Isabella A Fast DO, On: 19-Aug-2016 Intent Isabella A Comments: right arm DEXA SCAN AXIAL SKELETON (87964)By: On: 19-Aug-2016 Intent Fast DO, Isabella A Fast DO, Isabella A Flu Vaccine (Quadrivalent) 56642Dx: On: 19-Aug-2016 Intent Fast DO, Isabella A Fast DO, Isabella A Comments: Lot:[id number]:01/27/17Dose:0.5mLRoute:IMSite:Rachell DltdGiven By:VLAD signed ADMINISTRATION OF INFLUENZA VIRUS On: 19-Aug-2016 Intent VACCINE (G0008)By: Fast DO, Isabella A Fast DO, Isabella A PNEUM VAC ADLT/IMUMNOSPR, SBC/INTRM On: 06-Jul-2016 Intent (96250)By: Fast DO, Isabella A Fast DO, Comments: Lot:[id number]:12/03/17Dose:0.5mgRoute:imSite:l armGiven By:VLAD signed Isabella A MAMMOGRAM, SCREENING, BOTH BREAST On: 04-Sep-2015 Intent (42245)By: Fast DO, Isabella A Fast DO, Isabella A Ultrasound - ThyroidBy: Fast DO, On: 04-Sep-2015 Intent Isabella A Fast DO, Isabella A MAMMOGRAM, SCREENING, BOTH BREAST On: 28-Apr-2015 Intent (31723)By: Fast DO, Isabella A Fast DO, Comments: end apr Isabella A Flu Vaccine (Quadrivalent) 07397Mg: On: 28-Apr-2015 Intent Fast DO, Isabella A Fast DO, Isabella A Comments: Lot #[id number] date: 12/2015Amount given:prefilled syringeSite given:Rachell Dltd, IMGiven by: LUZ Olson and ELENI signed ADMINISTRATION OF INFLUENZA VIRUS On: 28-Apr-2015 Intent VACCINE (G0008)By: Fast DO, Isabella A Fast DO, Isabella A Overnight Pulse OX (96143)By: Fast On: 02-Mar-2015 Intent DO, Isabella A Fast DO, Isabella A Comments: gave overnight paulse ox to pt with new batteries. Explained to patient how it worked and had her demonstrate it back to me so I knew she was aware. Told patient to bring back before noon if possible on 03/02/15. EKG (49082)By: Chetan Peacock DOa A On: 26-Dec-2014 Intent Fast DO, Isabella A Comments: ekg showed normal sinus rhythym, normal axis, no acute st/t wave changes OtherBy: Luis Alberto ARCHULETA, Isabella A Fast DO, On: 02-Sep-2014 Intent Isabella A Comments: sleep study Overnight Pulse OX (68886)By: Luis Alberto On: 29-Aug-2014 Intent DO, Isabella A Fast DO, Isabella A Ultrasound - ThyroidBy: Luis Alberto ARCHULETA, On: 29-Aug-2014 Intent Isabella A Fast DO, Isabella A Prevnar 13 (00690)By: Loki MARIA, On: 30-May-2014 Intent Sindy Comments: [id number] arm, IMAS Overnight Pulse OX (05084)By: Luis Alberto On: 30-May-2014 Intent DO, Isabella A Fast DO, Isabella A Comments: On 2 Liters at night Given monitor A Overnight Pulse OX (07155)By: Luis Alberto On: 23-May-2014 Intent , Isabella A Fast DO, Isabella A FLU VAC, SPLIT, >3 YEARS, INTRAMUSC On: 23-May-2014 Intent (41769)By: Luis Alberto ARCHULETA, Isabella A Fast DO, Comments: Lot #:[id number] date:03/2016Amount given:0.5mlRoute: IMSite given: left deltoidGiven by: SCOUT Merritt A ADMINISTRATION OF INFLUENZA VIRUS On: 23-May-2014 Intent VACCINE (G0008)By: Luis Alberto ARCHULETA, Isabella A Fast DO, Isabella A DEXA SCAN AXIAL SKELETON (58821)By: On: 11-Apr-2014 Intent Luis Alberto DO, Isabella A Fast DO, Isabella A MAMMOGRAM, SCREENING, BOTH BREAST On: 11-Apr-2014 Intent (43283)By: Luis Alberto DO, Isabella A Fast DO, Isabella A Overnight Pulse OX (44767)By: Luis Alberto On: 11-Apr-2014 Intent DO, Isabella A Fast DO, Isabella A Comments: 2 weeks Radiology - Lumbar SpineBy: Luis Alberto ARCHULETA, On: 11-Apr-2014 Intent Isabella A Fast DO, Isabella A Overnight Pulse OX (80274)By: Fast On: 07-Apr-2014 Intent DO, Isabella A Fast DO, Isabella A Six Minute Walk Assessment On: 20-Mar-2014 Intent (87136)By: Fast DO, Isabella A Fast DO, Isabella A MAMMOGRAM, SCREENING, BOTH BREASTS On: 12-Aug-2013 Intent (31508)By: Fast DO, Isabella A Fast DO, Isabella A DXA, BONE DENSITY, AXIAL SKELETON On: 12-Aug-2013 Intent (66735)By: Fast DO, Isabella A Fast DO, Isabella A Aerosol Treatment (98794)By: Jalil On: 03-Jun-2013 Intent MONEY 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 E Eprescribed prescriptions (G8553)By: On: 03-Jun-2013 Intent Long 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 FITTING 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 L MAMMOGRAM, SCREENING, BOTH BREASTS On: 06-May-2013 Intent (19668)By: Fast DO, Isabella A Fast DO, Comments: aug Isabella A DXA, BONE DENSITY, AXIAL SKELETON On: 06-May-2013 Intent (24802)By: Fast DO, Isabella A Fast DO, Comments: due in aug Isabella A Ultrasound - ThyroidBy: Fast DO, On: 06-May-2013 Intent Isabella A Fast DO, Isabella A FLU VAC, SPLIT, >3 YEARS, INTRAMUSC On: 06-May-2013 Intent (73318)By: Merna Hinojosa Comments: Lot #:[id number] date:mount given:0.5mlRoute: IMSite given: L dltdVIS and ABN signedGiven by: SCOUT Merritt ADMINISTRATION OF INFLUENZA VIRUS On: 06-May-2013 Intent VACCINE (G0008)By: Merna Hinojosa Spirometry (19061)By: Luis Alberto ARCHULETA, On: 20-Aug-2012 Intent Isabella A Fast DO, Isabella A Comments: good effort and curve improve over previous Eprescribed prescriptions (G8553)By: On: 20-Aug-2012 Intent Fast DO, Isabella A Fast DO, Isabella A Pulse Oximetry (22225)By: Luis Alberto ARCHULETA, On: 20-Aug-2012 Intent Isabella A Fast DO, Isabella A Aerosol Treatment (97561)By: Fast On: 20-Aug-2012 Intent DO, Isabella A Fast DO, Isabella A MAMMOGRAM, SCREENING, BOTH BREASTS On: 30-May-2012 Intent (78256)By: Fast DO, Isabella A Fast DO, Comments: jul Isabella A ADMINISTRATION OF INFLUENZA VIRUS On: 30-May-2012 Intent VACCINE (G0008)By: Merna Hinojosa Comments: Lot #[id number]-L dltd, IMDose prefilled syringegiven by:CROW HesterVIS signed FLU VAC, SPLIT, >3 YEARS, INTRAMUSC On: 30-May-2012 Intent (49512)By: Merna Hinojosa EKG (40704)By: Fast DO, Isabella A On: 14-Mar-2012 Intent [...] MAMMOGRAM, SCREENING, BOTH BREASTS On: 27-Jun-2011 Intent (21689)By: Fast DO, Isabella A Fast DO, Isabella A CT - ChestBy: Fast DO, Isabella A Fast On: 27-Jun-2011 Intent DO, Isabella A DXA, BONE DENSITY, AXIAL SKELETON On: 27-Jun-2011 Intent (52087)By: Fast DO, Isabella A Fast DO, Isabella A FLU VAC, SPLIT, >3 YEARS, INTRAMUSC On: 05-May-2011 Intent (75255)By: Nieves Valdez LPN Comments: Lot #[id number]/20/12Site-left deltoidgiven by: Saul Valdez LPN IMMUNIZ ADMNIN, 1 VAC, SNGL/COMBO On: 05-May-2011 Intent (99651)By: José Miguel MARIA, Nieves Aerosol Treatment (28088)By: Jalil On: 15-Dec-2010 Intent Regine NAGEL Inhaler Demo (47457)By: Luis Alberto ARCHULETA, On: 05-Jul-2010 Intent Isabella A Fast DO, Isabella A DXA, BONE DENSITY, AXIAL SKELETON On: 05-Jul-2010 Intent (10929)By: Luis Alberto DO Isabella A Fast DO, Comments: july Isabella A CT - ChestBy: Fast DO, Isabella A Fast On: 01-Mar-2010 Intent DO, Isabella A Comments: pe protocol- mid sept MAMMOGRAM, SCREENING, BOTH BREASTS On: 01-Mar-2010 Intent (58100)By: Fast DO, Isabella A Fast DO, Isabella A PFT - CompleteBy: Fast DO, Isabella A On: 01-Mar-2010 Intent Fast DO, Isabella A Nuclear Stress Test/Stress On: 07-Oct-2009 Intent SPECT/AdenosineBy: Fast DO, Isabella A Fast DO, Isabella A EKG (13524)By: Fast DO, Isabella A On: 07-Oct-2009 Intent Fast DO, Isabella A Comments: ekg showed normal sinus rhythym, normal axis, no acute st/t wave changes Pulse Oximetry (26374)By: Luis Alberto ARCHULETA, On: 02-Sep-2009 Intent Isabella A Fast DO, Isabella A Comments: 97% Venous Doppler - LowerBy: Luis Alberto DO, On: 02-Sep-2009 Intent Isabella A Fast DO, Isabella A Comments: stat today call wet read Pulse Oximetry (96750)By: Jalil NAGEL, On: 04-Aug-2009 Intent Emelyn Aerosol Treatment (42955)By: Jalil On: 04-Aug-2009 Intent Regine NAGEL PNEUM VAC ADLT/IMUMNOSPR, SBC/INTRM On: 11-May-2009 Intent (19618)By: Sivan Yung Comments: Lot #[id number]-right deltoidDose0.5mlgiven by Harpal Yung LPN ADMINISTRATION OF PNEUMOCOCCAL On: 11-May-2009 Intent VACCINE (G0009)By: Sivan Yung FLU VAC, SPLIT, >3 YEARS, INTRAMUSC On: 11-May-2009 Intent (81223)By: Sivan Yung Comments: Lot #[id number]-left deltoidDose0.5mlgiven by Harpal Yung LPN ADMINISTRATION OF INFLUENZA VIRUS On: 11-May-2009 Intent VACCINE (G0008)By: Sivan Yung Nerve ConductionBy: Fast DO, Isabella A On: 08-Jul-2008 Intent Fast DO, Isabella A Comments: right arm/ left leg EMGBy: Fast DO, Isabella A Fast DO, On: 08-Jul-2008 Intent Isabella A Comments: right arm/left leg MAMMOGRAM, SCREENING, BOTH BREASTS On: 09-Jun-2008 Intent (92456)By: Fast DO, Isabella A Fast DO, Isabella A DXA, BONE DENSITY, AXIAL SKELETON On: 09-Jun-2008 Intent (40108)By: Fast DO Isabella A Fast DO, Comments: aug 08 Isabella A THER/PROPH/DIAG INJ, SC/IM On: 28-Jan-2008 Intent (81715)By: Merna Hinojosa TETANUS VAC, ADSORBED, INTRAMUSC On: 28-Jan-2008 Intent (18696)By: Merna Hinojosa Comments: Lot #:[id number] date:mount given:0.5mlRoute:IM Site given:left deltoidGiven by: SCOUT Merritt Instructions Name Dates Details Chronic obstructive pulmonary disease : How to [...] Instructions Indication: Osteopenia of multiple sites Encounters Office Visit On: 30-Mar-2018 9:41 Encounter Reason: [...] bp is great- 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 Patient has been compliant with instructions. Lamar End: 13-Dec-2016 9:44 t medication use: no [...] with sleepping with bipap has followup with receiver stocker in december - saw barry and he [...] in day- feels pretty good- she saw [place] for carpal tunnel 2012 and sx worse [...] scanty. The cough occurs mostly in the clinical psychiatrist. The symp End: 04-Aug-2009 13:28 toms have [...] difficulty arising from chair. Note for K karin Pain: left knee arthroscopy 2004- for torn [...] 12:04 [facility] End: 04-Jan-2007 12:12 Payers [facility]/Stacy RITCHIE; waleska guarantor
--- OUTSIDE RECORDS SUMMARY | 2018-10-23 09:26 | XMS RPT_ITS | Continuity of Care Document ---
:1945 External Reference #:[id number] Author Organization [facility] Address [address] [facility] [address] [place] [address] Phone Care Team Providers Name Role Phone Isabella Peacock DO Unavailable Tomer BRADLEY, Dr. Enoc Marcano Unavailable Merna Hinojosa Unavailable Unavailable LILI Michel Unavailable Unavailable Swati Bauer Unavailable Unavailable Mems Process Engineer, System Unavailable Unavailable Unavailable Unavailable Problems Name [...] Quantity: 1 {Box} Refills: 3 Ordered:30-Mar-2018 Fast Chetan ARCHULETAa AFast DO, Isabella A Start : 30-Mar-2018 Active Spiriva HandiHaler 18 MCG Inhalation Capsule 1 Capsule puff q am for 30 days Quantity: 1 {Capsule} Refills: 3 Ordered:26-Jun-2018 Fast Chetan ARCHULETAa AFcleopatra DO, Isabella A Start : 26-Jun-2018 Active [...] days Quantity: 20 {Tablet} Refills: 0 Ordered:10-Mar-2017 ZOHRA MichelAINE Start : 28-Dec-2016 End : 10-Mar-2017 Inactive [...] : 15-Dec-2010 End : 27-Jun-2011 Inactive DRISDOL, 85718SHZW (Oral Capsule) 1 Capsule Weekly for 0 days Quantity: 4 {Capsule} Refills: 3 Ordered:27-Jun-2011 Merna Hinojosa Start : 05-Jul-2010 End : 27-Jun-2011 Inactive ERGOCALCIFEROL, 85200YKOB (Oral Capsule) 1 (one) Capsule twice a [...] Quantity: 30 {Tablet} Refills: 3 Ordered:24-Mar-2017 Long TUBE AND ROD STRAIGHTENER, Ny L Start : 28-Jan-2015 End : 24-Mar-2017 Inactive [...] days Quantity: 10 {Capsule} Refills: 0 Ordered:06-Aug-2012 Jalil NAGEL Emelyn Start : 06-Aug-2012 End : [...] End : 06-May-2013 Discontinued VITAMIN D (ERGOCALCIFEROL), 88958LGKT (Oral Capsule) 1 Capsule q week for 0 days Quantity: 12 {Capsule} Refills: 3 Ordered:06-May-2013 Fast DO, Isabella AFast DO, Isabella A Start : 06-May-2013 End : 06-May-2013 Discontinued VITAMIN D, 90399QEQK (Oral Capsule) 1 Weekly for 0 days Refills: 0 Ordered:07-Apr-2010 Loyda Thompson RN End : 07-Apr-2010 Discontinued Comments:This order discontinued [...] boyfriend has witnessed this multiple times at [facility] sleep study to evaluate had abnormal overnight [...] of right hand (M65.311, 727.03) Comments: refer otmer Status: Resolved as of 30-Mar-2018 vit d [...] (CAD), BILAT Result: Comments: See Note; NOTES: [facility] Imaging Services [address] [place] [address] SCREENING MAMM (CAD), BILAT MR#: [id number] Acct: [id number] Name: KERI MARVIN Rep #: [id number] : 1945 F 72 From: Samuel Leal MD PCP: Isabella Peacock DO Status: REG CLJeanette Study: SCREENING MAMM (CAD), BILAT Date of Exam: 05/30/18 Exam# [id number] Ordering Dr: Isabella Peacock DO MAMMOG UCHE [...] delay biopsy of a clinically suspicious abnormality. [id number] Electronically Signed: Samuel Leal MD at 9:52 EDT Tel [phone], TRIBAX support , CC: Isabella Peacokc DO Shallot Cleaner: Signed 30-May-2018 Thyroid Result: Comments: See Note; NOTES: [facility] Imaging Services [address] [place] [address] Thyroid MR#: [id number] Acct: [id number] Name: KERI MARVIN Rep #: [id number] : [birth year] F 72 From: Timbo Phillips DO PCP: Isabella Peacock DO Status: REG CLI Study: Thyroid Date of Exam: 05/30/18 Exam# [id number] Ordering Dr: Isabella Peacock DO STUDY: THYROID [...] Service support , CC: Isabella Peacock DO Shallot Cleaner: Signed 27-Jan-2017 SCREENING MAMM (CAD), BILAT Result: Comments: See Note; NOTES: [facility] Imaging Services [address] [place] [address] Verdana 4d SCREENING MAMM (CAD), BILAT MR#: [id number] Acct: [id number] Name: KERI MARVIN Rep #: [id number] : 1945 F 71 From: Samuel Leal MD PCP: Isabella Peacock DO Status: REG CLI Study: SCREENING MAMM (CAD), BILAT Date of Exam: 01/27/17 Exam# [id number] Ordering Dr: Isabella Peacock DO MAMMOGRAPHY - [...] delay biopsy of a clinically suspicious abnormality. [id number] Electronically Signed: Samuel Leal MD at 10:52 ED T Tel [phone], Service support , CC: Isabella Peacock DO Shallot Cleaner: Signed 27-Jan-2017 Thyroid Result: Comments: See Note; NOTES: [facility] Imaging Services [address] [place] [address] Verdana 4d Thyroid MR#: [id number] Acct: [id number] Name: KERI MARVIN Rep #: [id number] D OB: 1945 F 71 From: Merna Solomon MD PCP: Isabella Peacock DO Status: REG CLI Study: Thyroid Date of Exam: 01/27/17 Exam# [id number] Ordering Dr: Isabella Peacock DO STUDY: THYROID [...] Merna Solomon MD at 0:00 EDT Tel [phone], Service support , Fax CC: Isabella Peacock DO Shallot Cleaner: Signed 21-Sep-2016 NCS and/or EMG Patient Result: Comments: See Note; NOTES: [facility] Pulmonary Services/Neurology [address] [place] [address] NCS and/or EMG Patient MR#: [id number] Acct: [id number] Name: KERI MARVIN Rep #: [id number] : 1945 71 From: Donte Daniels MD Referring Dr: Isabella Peacock DO Status: REG CLI Ordering Dr: Isabella Peacock DO Date: 09/20/16 Location: [facility] Sex: F C DATE OF SERVICE: 09/20/2016 [...] elbow. Donte mcgee MD T: NTS JOB: [id number] 09/21/16 1036 <Electronically signed by Donte Daniels MD> Date Donte Daniels MD CC: Isabella Peacock DO; Kerry Daniels MD Date Dictated: 09/20/16 1016 Date Transcribed: 09/20/16 1016 Shallot Cleaner: Signed 30-Aug-2016 Dexa Bone Density Study (HP) Result: Comments: See Note; NOTES: [facility] Imaging Services [address] [place] [address] Verdana 4d Dexa Bone Density Study (HP) MR#: [id number] Acct: [id number] Name: KERI MARVIN Rep #: [id number] : 1945 F 71 From: Samuel Leal MD PCP: Isabella Peacock DO Status: REG CLI Study: Dexa Bone Density Study (HP) Date of Exam: 08/30/16 Exam# [id number] Ordering Dr: Geni Peacock ra, DO STUDY: [...] Samuel Leal MD at 9:49 EST Tel [phone], Service support [phone], CC: Isabella Peacock DO Shallot Cleaner: Signed 18-Jan-2016 Bilat Scrn Digital AND CAD Result: Comments: See Note; NOTES: [facility] Imaging Services [address] [place] [address] Verdana 4d Bilat Scrn Digital AND CAD MR#: [id number] Acct: [id number] Name: KERI MARVIN Rep #: [id number] : 1945 F 70 From: Samuel Leal MD PCP: Isabella Peacock DO Status: REG CLI Study: Bilat Scrn Digital AND CAD Date of Exam: 01/18/16 Exam# [id number] Ordering Dr: Isabella Peacock DO MAMMOGRAPHY - [...] delay biopsy of a clinically suspicious abnormality. [id number] Electronically Signed: Samuel Leal MD at 12:34 EDT Tel [phone], Service support [phone], CC: Isabella Peacock DO Shallot Cleaner: Signed 18-Jan-2016 Thyroid Result: Comments: See Note; NOTES: [facility] Imaging Services [address] [place] [address] Verdana 4d Thyroid MR#: [id number] Acct: [id number] Name: KERI MARVIN Rep # : [id number] : 1945 F 70 From: Samuel Leal MD PCP: Isabella Peacock DO Status: REG CLI Study: Thyroid Date of Exam: 01/18/16 Exam# [id number] Ordering Dr: Isabella Peacock DO STUDY: THYROID [...] Samuel Leal MD at 13:18 EDT Tel [phone], Service support [phone], CC: Isabella Peacock DO Shallot Cleaner: Signed 10-Oct-2014 Sleep Study Report Result: Comments: See Note; NOTES: [facility] SLEEP DISORDER CENTER [address] [place] [address] Polysomnography with NCPAP MR#: [id number] Acct: [id number] Name: KERI MARVIN Rep #: [id number] : 1945 69 From: Donte Daniels MD PCP: Isabella Peacock DO Status: REG CLI Ordering Dr.: Isabella Peacock DO Date: 10/08/14 Sex: F C REFERRING PHYSICIAN: Dr. Peacock. SLEEP HIS TORY: This is a CPAP titration study performed on this 69-year-old female with a body mass index of 26.9 and an [place] Sleepiness Scale score of 14. History includes [...] The study was attended continuously by a security systems technician. Monitored parameters included left and right [...] Study Report Result: Comments: See Note; NOTES: [facility] SLEEP DISORDER CENTER [address] [place] [address] Polysomnography MR#: [id number] Acct: [id number] Name: KERI MARVIN Rep #: [id number] : 1945 69 From: Donte Daniels MD PCP: Isabella Peacock DO Status: REG CLI Ordering Dr.: Isabella Peacock DO Date: 09/22/14 Sex: F C REFERRING PHYSICIAN: Dr. Isabella Peacock. SLEEP HISTORY: This is a diagnostic polysomnogram performed on this 69-year-old female with a body mass index of 26.9 and an [place] Sleepiness Scale score of 14. There was [...] version). Please note that a reference to [facility] AHI in this re port is consistent with the current Hypopnea definition according to Medicare Criteria and an AASM AHI reference is consistent with the current Hypopnea definition according to the AASM criteria. PA OCEDURE: The study was attended continuously by a security systems technician. Monitored parameters included left and right [...] -Aug-2014 Thyroid Result: Comments: See Note; NOTES: [facility] Imaging Services [address] [place] [address] Ultrasound Report MR#: [id number] Acct: [id number] Name: KERI MARVIN Rep #: [id number] : 1945 F 69 From: Samuel Leal MD PCP: Isabella Peacock DO Status: REG CLI Study: Thyroid Date of Exam: 09/05/14 Exam# [id number] Ordering Dr: Isabella Peacock DO STUDY: THYROID [...] Samuel Leal MD at 14:33 EST Tel [phone], Service support [phone], CC: Isabella Peacock DO Shallot Cleaner: Signed 22-May-2014 Dexa Bone Density Study (HP) Result: Comments: See Note; NOTES: [facility] Imaging Services [address] [place] [address] Bone Density Report MR#: [id number] Acct: [id number] Name: KERI MARVIN Rep #: [id number] : 1945 F 68 From: Samuel Leal MD PCP: Isabella Peacock DO Status: REG CLI Study: Dexa Bone Density Study (HP) Date of Exam: 05/22/14 Exam# [id number] Ordering Dr: Isabella Peacock DO STUDY: DUAL [...] Samuel Leal MD at 15:59 EDT Tel [phone], Service support [phone], CC: Isabella Peacock DO Shallot Cleaner: Signed 16-May-2014 PT Discharge Summary Result: Comments: See Note; NOTES: [facility] Physical Therapy Health[address] [place] [address] Fax REHABILITATION SERVICES DISCHARGE SUMMARY MR#: [id number] Acct: [id number] Name: KERI MARVIN Rep #: [id number] : 1945 68 From: Cyndy Damon Referring : Isabella Peacock DO Status: DIS RCR Eval Date: Discharge D ate: 05/13/14 DATE OF SERVICE: 05/13/2014 This patient was referred to physical therapy by Dr. Isabella Peacock with a diagnosis of low back pain with radiculopathy. She has been seen in our clinic t imes a total of 10 visits. Her physical [...] little achy at times. Oswestry was 0%, U8582-MY , Q4710-XE. She plans to follow up with Dr. Peacock on May 23, 2014. I am discharging her from formal physical therapy and she is agreeable to discharge. Cyndy Damon, PT T: NTS JOB: [id number] <Electronically signed by Cyndy Damon > 05/16/14 1034 CC: Signed 11-Apr-2014 L/S Spine Min 4 Views Result: Comments: See Note; NOTES: [facility] Imaging Services [address] [place] [address] Radiology Report MR#: [id number] Acct: [id number] Name: KERI MARVIN Rep #: [id number] : 1945 F 68 From: Denise Cardoza MD PCP: Isabella Peacock DO Status: REG CLI Study: L/S Spine Min 4 Views Date of Exam: 04/11/14 Exam# [id number] Ordering Dr: Isabella Peacock DO STUDY: X-RAY [...] Vivienne Cardoza MD at 11:36 EDT Tel [phone], Service support [phone], Fax CC: Isabella Peacock DO Shallot Cleaner: Signed 20-Mar-2014 Spirometry (23146) Result: 01-Jul-2013 Thyroid Result: Comments: See Note; NOTES: [facility] Imaging Services [address] [place] [address] Ultrasound Report MR#: [id number] Acct: [id number] Name: KERI MARVIN Rep #: [id number] : 1945 F 68 From: Fredis Aguirre MD PCP: Isabella Peacock DO Status: REG CLI Study: Thyroid Date of Exam: 07/01/13 Exam# [id number] Ordering Dr: Isabella Peacock DO STUDY: THYROID [...] M.D. at 11:55 EST , Service support [phone], CC: Isabella Peacock DO Shallot Cleaner: Signed Immunization Name Dates Details Influenza (3 years and up) on: 11-May-2009 Comments: Lot #[id number]-left deltoidDose0.5mlgiven by Harpal Yung LPN Pneumococcal (2 years and up) on: 11-May-2009 Comments: Lot #[id number]-right deltoidDose0.5mlgiven by Harpal Yung LPN Tetanus on: 28-Jan-2008 Comments: Lot #:[id number] date:mount given:0.5mlRoute:IM Site given:left deltoidGiven by: SCOUT Merritt Family History Unknown Family Member Name Dates Details Brother 1 Comments: hx postpolio sx Status: Active Father Comments: at 77, had sleep apnea, [place], glaucoma Status: Active Mother Comments: Osteopenia, hearty [...] smoker Vital Signs Date Test Result Details 6-Ptu-826519:29 Temperature 98.1 f Comments: Method: Temporal Pulse [...] 0.00 cm Results Date Description Value Details :47 CBC with auto diff Comments: PATIENT NOT FASTINGPERFORMED BY: 5 Star MobileCoAstra Health CenterTarvzn1579 [facility] [id number] Information: NURSE DRAW (72684) Immature Grans (Abs) 0.0 {x10E3/uL} (Normal) Range: [...] 3.77-5.28 WBC 6.8 {x10E3/uL} (Normal) Range: 3.4-10.8 63-Mxj-482305:47 METABOLIC PANEL, COMPREHENSIVE Comments: PATIENT NOT FASTINGPERFORMED BY: [facility] [id number]; fu 12-3-18 DF (96887) ALT (SGPT) 21 [iU]/L (Normal) Range: 0-32 [...] mg/dL (Normal) Range: 65-99 :38 LIPID PANEL (64169) Comments: PATIENT WAS FASTINGPERFORMED BY: [place] [facility]6370 [facility] [id number] LDL/HDL Ratio 1.4 {ratio} (Normal) Range: 0.0-3.2 [...] Range: 100-199 :38 CBC with auto diff (74381) Comments: PATIENT WAS FASTINGPERFORMED BY: [facility] [id number] Immature Grans (Abs) 0.0 {x10E3/uL} (Normal) Range: [...] 3.77-5.28 WBC 7.2 {x10E3/uL} (Normal) Range: 3.4-10.8 81-Hvx-31758:38 METABOLIC PANEL, COMPREHENSIVE Comments: PATIENT WAS FASTINGPERFORMED BY: [facility] [facility] [id number] (97582) ALT (SGPT) 20 [iU]/L (Normal) Range: 0-32 [...] mg/dL (Normal) Range: 65-99 :38 HGB A1C (96996) Comments: PATIENT WAS FASTINGPERFORMED BY: [employer] [id number] Hemoglobin A1c 5.6 % (Normal) Range: 4.8-5.6 Comments: . Prediabetes: 5.7 - 6.4 Diabetes: >6.4 Glycemic control for adults with diabetes: <7.0 :38 TSH (62027) Comments: PATIENT WAS FASTINGPERFORMED BY: [employer]6370 [facility]cohausUNC [facility] [id number] TSH 1.990 {uIU/mL} (Normal) Range: 0.450-4.500 :38 Vitamin D Hydroxy (07844) Comments: PATIENT WAS FASTINGPERFORMED BY: [employer]6370 [facility] [id number] Vitamin D, 25-Hydroxy 57.3 ng/mL (Normal) Range: 30.0-100.0 Comments: Vitamin D deficiency has been defined by the [place] of[place]icine and an Endocrine Society practice guideline as alevel of serum 25-OH vitamin D less than 20 ng/mL (1,2).The Endocrine Society went on to further define vitamin Dinsufficiency as a level between 21 and 29 ng/mL (2).1. IOM ([place] of Medicine). 2010. Dietary reference intakes for calcium and D. Fu [place]: The National Academies Press.2. Castillo MF, Yocasta SHABAZZ, Jerri MACIEL, et al. Evaluation, treatment, and prevention of vitamin D deficiency: an Endocrine Society clinical practice guideline. JCEM. 2010; 96(7):1911-30. 15-Jjo-93426:10 LIPID PANEL (60586) Comments: PATIENT WAS FASTINGPERFORMED BY: [employer] [facility] [id number] LDL/HDL Ratio 1.4 {ratio} (Normal) Range: 0.0-3.2 [...] Range: 100-199 :10 CBC with auto diff (11325) Comments: PATIENT WAS FASTINGPERFORMED BY: [employer] LabCoAncestryPgzywl4948 [facility] [id number] Immature Grans (Abs) 0.0 {x10E3/uL} (Normal) Range: [...] 3.77-5.28 WBC 6.0 {x10E3/uL} (Normal) Range: 3.4-10.8 15-Ngm-31548:10 MICROALBUMIN: CREATININE RATIO Comments: PATIENT WAS FASTINGPERFORMED BY: [employer] Xscxsf9591 [facility] [id number] (13367) AND (46176) Alb/Creat Ratio 24.8 {mg/g_creat} (Normal) Range: 0.0-30.0 Albumin, Urine 29.2 ug/mL (Normal) Creatinine, Urine 117.6 mg/dL (Normal) 31-Rbs-71585:10 METABOLIC PANEL, COMPREHENSIVE Comments: PATIENT WAS FASTINGPERFORMED BY: [facility]usherAstra Health CenterAhguwe0481 [facility] [id number] (43577) ALT (SGPT) 19 [iU]/L (Normal) Range: 0-32 [...] 8-27 Glucose 86 mg/dL (Normal) Range: 65-99 23-Dqn-56012:10 HGB A1C (66612) Comments: PATIENT WAS FASTINGPERFORMED BY: PusherAstra Health CenterVsmzrd6636 [facility] [id number] Hemoglobin A1c 5.8 % (Abnormal) Range: 4.8-5.6 Comments: . Pre-diabetes: 5.7 - 6.4 Diabetes: >6.4 Glycemic control for adults with diabetes: <7.0 1-Ebj-396827:25 CBC W/AUTO DIFF WBC Comments: PERFORMED BY: [facility] [place] [address] [id number] Information: CLIENT DRAW (73975) Immature Grans (Abs) 0.0 {x10E3/uL} (Normal) Range: [...] 3.77-5.28 WBC 6.6 {x10E3/uL} (Normal) Range: 3.4-10.8 98-Frr-59485:12 TSH (THYROID STIMULATING Comments: PATIENT WAS FASTINGPERFORMED BY: [employer] Qkhgov7825 [facility] [id number] HORMONE) (44413) TSH 1.550 {uIU/mL} (Normal) Range: 0.450-4.500 :12 METABOLIC PANEL, COMPREHENSIVE Comments: PATIENT WAS FASTINGPERFORMED BY: PusherAstra Health CenterDwosqt3954 [facility] [id number] (92562) ALT (SGPT) 14 [iU]/L (Normal) Range: 0-32 [...] mg/dL (Normal) Range: 65-99 :12 HGB A1C (62637) Comments: PATIENT WAS FASTINGPERFORMED BY: [employer]6370 [facility] [id number] Hemoglobin A1c 5.8 % (Abnormal) Range: 4.8-5.6 Comments: . Pre-diabetes: 5.7 - 6.4 Diabetes: >6.4 Glycemic control for adults with diabetes: <7.0 :12 Vitamin D Hydroxy (02911) Comments: PATIENT WAS FASTINGPERFORMED BY: [employer] [facility] [id number] Vitamin D, 25-Hydroxy 43.2 ng/mL (Normal) Range: 30.0-100.0 Comments: Vitamin D deficiency has been defined by the [place] of[place]icine and an Endocrine Society practice guideline as alevel of serum 25-OH vitamin D less than 20 ng/mL (1,2).The Endocrine Society went on to further define vitamin Dinsufficiency as a level between 21 and 29 ng/mL (2).1. IOM ([place] of Medicine). 2010. Dietary reference intakes for calcium and D. Fu [place]: The National Academies Press.2. Yocasta Osei, Jerri MACIEL et al. Evaluation, treatment, and prevention of vitamin D deficiency: an Endocrine Society clinical practice guideline. JCEM. 2010; 96(7):1911-30. 27-Fxq-16892:12 LIPID PANEL (30136) Comments: PATIENT WAS FASTINGPERFORMED BY: [facility] [id number]; elen review on 03/24 LDL/HDL Ratio 1.6 [...] Cholesterol, Total 176 mg/dL (Normal) Range: 100-199 90-Bnq-990814:46 Vitamin D Hydroxy (89897) Comments: PATIENT WAS FASTINGPERFORMED BY: [employer] [facility] [id number] Vitamin D, 25-Hydroxy 40.8 ng/mL (Normal) Range: 30.0-100.0 Comments: Vitamin D deficiency has been defined by the [place] of[place]icine and an Endocrine Society practice guideline as alevel of serum 25-OH vitamin D less than 20 ng/mL (1,2).The Endocrine Society went on to further define vitamin Dinsufficiency as a level between 21 and 29 ng/mL (2).1. IOM ([place] of Medicine). 2010. Dietary reference intakes for calcium and D. Fu [place]: The National Academies Press.2. Yocasta Osei, Jerri AMCIEL et al. Evaluation, treatment, and prevention of vitamin D deficiency: an Endocrine Society clinical practice guideline. JCEM. 2010; 96(7):1911-30. 82-Zbp-270601:46 LIPID PANEL (13549) Comments: PATIENT WAS FASTINGPERFORMED BY: GroupZoomSocorro General HospitalHvdjbv6258 [facility] [id number] LDL/HDL Ratio 1.9 {ratio_units} (Normal) Range: 0.0-3.2 Comments: LDL/HDL Ratio Men Women 1/2 Avg.Risk 1.0 1.5 Av g.Risk 3.6 3.2 2X Avg.Risk 6.2 5.0 3X Avg.Risk 8.0 6.1 LDL Cholesterol Calc 101 mg/dL (Abnormal) Range: 0-99 VLDL Cholesterol Christi 13 mg/dL (Normal) Range: 5-40 HDL Cholesterol 53 mg/dL (Normal) Triglycerides 65 mg/dL (Normal) Range: 0-149 Cholesterol, Total 167 mg/dL (Normal) Range: 100-199 05-Arm-907634:46 MICROALBUMIN: CREATININE RATIO Comments: PATIENT WAS FASTINGPERFORMED BY: GroupZoomSocorro General HospitalYugzcq2807 [facility] [id number] (87798) AND (09943) Microalb/Creat Ratio 12.6 {mg/g_creat} (Normal) Range: 0.0-30.0 Microalbumin, Urine 4.9 ug/mL (Normal) Creatinine, Urine 38.9 mg/dL (Normal) 36-Sas-212098:46 METABOLIC PANEL, COMPREHENSIVE Comments: PATIENT WAS FASTINGPERFORMED BY: GroupZoomAstra Health CenterMxttwk8976 [facility] [id number] (17858) ALT (SGPT) 15 [iU]/L (Normal) Range: 0-32 [...] Glucose, Serum 86 mg/dL (Normal) Range: 65-99 04-Ogk-481342:46 HGB A1C (30855) Comments: PATIENT WAS FASTINGPERFORMED BY: [employer] [id number] Hemoglobin A1c 6.0 % (Abnormal) Range: 4.8-5.6 Comments: . Pre-diabetes: 5.7 - 6.4 Diabetes: >6.4 Glycemic control for adults with diabetes: <7.0 :58 Magnesium (04184) Comments: PATIENT NOT FASTINGPERFORMED BY: [employer] [id number] BY: [employer] [id number] Magnesium, Serum 2.2 mg/dL (Normal) Range: 1.6-2.3 07-Rxq-84441:58 Vitamin B-12 (cyanocobalamin) Comments: PATIENT NOT FASTINGPERFORMED BY: [employer] [id number] BY: [employer] [id number] (31161) Vitamin B12 849 pg/mL (Normal) Range: 211-946 19-Wfs-62307:58 CCP ANTIBODY (70867) Comments: PATIENT NOT FASTINGPERFORMED BY: [facility]6370 [facility] [id number] BY: [address] [id number] CCP Antibodies IgG/IgA 11 {units} (Normal) Range: 0-19 Comments: Negative <20 Weak positive 20 - 39 Moderate positive 40 - 59 Strong positive >59 :58 SED RATE ERYTHROCYTE Comments: PATIENT NOT FASTINGPERFORMED BY: [place] 0948270 [facility] [id number] BY: [address] [id number] (82141) Sedimentation Rate-Westergren 2 mm/h (Normal) Range: 0-40 :58 C-REACTIVE PROTEIN (99242) Comments: PATIENT NOT FASTINGPERFORMED BY: [employer] MobileLaurie [place] 3980270 [facility] [id number] BY: [address] [id number] C-Reactive Protein, Quant 3.4 mg/L (Normal) Range: 0.0-4.9 :58 RHEUMATOID FACTOR-QUANT Comments: PATIENT NOT FASTINGPERFORMED BY: [address] MobileLaur[place] 3980270 [facility] [id number] BY: [address] [id number] (31941) RA Latex Turbid. <10.0 {IU/mL} (Normal) Range: 0.0-13.9 :58 BOUBACAR (ANTINUCLEAR ANTIBODY) Comments: PATIENT NOT FASTINGPERFORMED BY: [facility]6370 [facility] [id number] BY: [address] [id number] (26973) BOUBACAR Direct Negative (Normal) :58 METABOLIC PANEL, Comments: PATIENT NOT FASTINGPERFORMED BY: LabLaurie [place] 3980270 [facility] [id number] BY: [address] [employer] [id number] COMPREHENSIVE (90015) ALT (SGPT) 20 [iU]/L (Normal) Range: 0-32 [...] Glucose, Serum 87 mg/dL (Normal) Range: 65-99 11-Eko-10126:58 CBC with auto diff Comments: PATIENT NOT FASTINGPERFORMED BY: [facility]6370 [facility] [id number] BY: Lab[address] [id number] (22824) Immature Grans (Abs) 0.0 {x10E3/uL} (Normal) Range: [...] DIFF WBC Comments: PATIENT WAS FASTINGPERFORMED BY: [facility]6370 [facility] [id number] Information: [id number] (84153) Immature Grans (Abs) 0.0 {x10E3/uL} (Normal) Range: [...] 3.77-5.28 WBC 5.9 {x10E3/uL} (Normal) Range: 3.4-10.8 73-Fqu-14717:47 METABOLIC PANEL, COMPREHENSIVE Comments: PATIENT WAS FASTINGPERFORMED BY: LabCoAstra Health CenterJcflie3088 [facility] [id number] (57166) ALT (SGPT) 21 [iU]/L (Normal) Range: 0-32 [...] mg/dL (Normal) Range: 65-99 :47 LIPID PANEL (92583) Comments: PATIENT WAS FASTINGPERFORMED BY: Mocavo70 [facility] [id number]; normal and has apt LDL/HDL Ratio 1.5 [...] (Normal) Range: 100-199 :47 Vitamin D Hydroxy (48873) Comments: PATIENT WAS FASTINGPERFORMED BY: [employer]6370 [facility] [id number] Vitamin D, 25-Hydroxy 37.8 ng/mL (Normal) Range: 30.0-100.0 Comments: Vitamin D deficiency has been defined by the [place] of[place]icine and an Endocrine Society practice guideline as alevel of serum 25-OH vitamin D less than 20 ng/mL (1,2).The Endocrine Society went on to further define vitamin Dinsufficiency as a level between 21 and 29 ng/mL (2).1. IOM ([place] of Medicine). 2010. Dietary reference intakes for calcium and D. Fu [place]: The National Academies Press.2. Yocasta Osei, Jerri MACIEL, et al. Evaluation, treatment, and prevention of vitamin D deficiency: an Endocrine Society clinical practice guideline. JCEM. 2010; 96(7):1911-30. :49 Vitamin D Hydroxy (25100) Comments: PATIENT WAS FASTINGPERFORMED BY: [employer]6370 [facility] [id number] Vitamin D, 25-Hydroxy 38.7 ng/mL (Normal) Range: 30.0-100.0 Comments: Vitamin D deficiency has been defined by the [place] of[place]icine and an Endocrine Society practice guideline as alevel of serum 25-OH vitamin D less than 20 ng/mL (1,2).The Endocrine Society went on to further define vitamin Dinsufficiency as a level between 21 and 29 ng/mL (2).1. IOM ([place] of Medicine). 2010. Dietary reference intakes for calcium and D. Fu [place]: The National AcademMotionSavvy [employer] Press.2. Castillo WHITE, Yocasta SHABAZZ, Jerri MACIEL, et al. Evaluation, treatment, and prevention of vitamin D deficiency: an Endocrine Society clinical practice guideline. JCEM. 2010; 96(7):1911-30. :49 METABOLIC PANEL, Comments: PATIENT WAS FASTINGPERFORMED BY: LabInternet [employer] S.L. Dlukcw9370 [facility] [id number] Information: [id number]; apt. 04-28-15 COMPREHENSIVE (66645) ALT (SGPT) 18 [iU]/L (Normal) Range: 0-32 [...] Glucose, Serum 85 mg/dL (Normal) Range: 65-99 14-Cye-34208:19 CBC With Differential/Platelet Comments: PATIENT WAS FASTINGPERFORMED BY: [facility] Oygojs1580 [facility] [id number] Information: [id number] Immature Grans (Abs) 0.0 {x10E3/uL} (Normal) Range: [...] Panel (14) Comments: PATIENT WAS FASTINGPERFORMED BY: LabCo Llbyvn1813 [facility] [id number] ALT (SGPT) 15 [iU]/L (Normal) Range: 0-32 [...] Glucose, Serum 101 mg/dL (Abnormal) Range: 65-99 42-Oht-24404:19 Lipid Panel With LDL/HDL Comments: PATIENT WAS FASTINGPERFORMED BY: [employer] Lyjnat0253 [facility] [id number] Ratio LDL/HDL Ratio 2.2 {ratio_units} Range: 0.0-3.2 [...] 3.600 {uIU/mL} Comments: PATIENT WAS FASTINGPERFORMED BY: [employer] Fwyger8991 [facility] [id number] 7:19 (Normal) Range: 0.450-4.500 19-Dec-2014 Vitamin D, 25-Hydroxy 32.3 ng/mL (Normal) Comments: PATIENT WAS FASTINGPERFORMED BY: GroupZoomAstra Health CenterQwlgjn0257 [facility] [id number] 7:19 Range: 30.0-100.0 Comments: Vitamin D deficiency has been defined by the [place] of[place]icine and an Endocrine Society practice guideline as alevel of serum 25-OH vitamin D less than 20 ng/mL (1,2).The Endocrine Society went on to further define vitamin Dinsufficiency as a level between 21 and 29 ng/mL (2).1. IOM ([place] of Medicine). 2010. Dietary reference intakes for calcium and D. Fu [place]: The National Academies Press.2. Castillo MF, Yocasta NC, Jerri MACIEL, et al. Evaluation, treatment, and prevention of vitamin D deficiency: an Endocrine Society clinical practice guideline. JCEM. 2010; 96(7):1911-30. :09 CBC W/AUTO DIFF WBC Comments: PATIENT NOT FASTINGPERFORMED BY: [employer] Ukginh3608 [facility] [id number] Information: [id number] (65474) Immature Grans (Abs) 0.0 {x10E3/uL} (Normal) Range: [...] 3.77-5.28 WBC 6.7 {x10E3/uL} (Normal) Range: 3.4-10.8 :09 METABOLIC PANEL, COMPREHENSIVE Comments: PATIENT NOT FASTINGPERFORMED BY: 5 Star [employer] Nnlwgi4287 [facility] [id number] (16331) ALT (SGPT) 16 [iU]/L (Normal) Range: 0-32 [...] Glucose, Serum 81 mg/dL (Normal) Range: 65-99 60-Tgm-416978:09 LIPID PANEL (58066) Comments: PATIENT NOT FASTINGPERFORMED BY: [facility] Tsdqhw6800 [facility] [id number] LDL/HDL Ratio 2.1 {ratio_units} (Normal) Range: 0.0-3.2 [...] Cholesterol, Total 192 mg/dL (Normal) Range: 100-199 75-Aee-058209:09 Vitamin D Hydroxy (06092) Comments: PATIENT NOT FASTINGPERFORMED BY: For[facility] [id number] Vitamin D, 25-Hydroxy 37.4 ng/mL (Normal) Range: 30.0-100.0 Comments: Vitamin D deficiency has been defined by the [place] of[place]icine and an Endocrine Society practice guideline as alevel of serum 25-OH vitamin D less than 20 ng/mL (1,2).The Endocrine Society went on to further define vitamin Dinsufficiency as a level between 21 and 29 ng/mL (2).1. IOM ([place] of Medicine). 2010. Dietary reference intakes for calcium and D. Fu [place]: The National Academies Press.2. Castillo MF, Yocasta NC, Jerri MACIEL, et al. Evaluation, treatment, and prevention of vitamin D deficiency: an Endocrine Society clinical practice guideline. JCEM. 2010; 96(7):1911-30. :43 LIPID PANEL (03542) Comments: PATIENT WAS FASTINGPERFORMED BY: [employer]6370 [facility]Spring Up Health SystemClariFIUNC Health [facility] [id number] LDL/HDL Ratio 1.6 {ratio_units} (Normal) Range: 0.0-3.2 [...] MANUAL DIFF Comments: PATIENT WAS FASTINGPERFORMED BY: Mocavo70 [facility] [id number] Information: [id number] (72441) Immature Grans (Abs) 0.0 {x10E3/uL} (Normal) Range: [...] COMPREHENSIVE Comments: PATIENT WAS FASTINGPERFORMED BY: [facility] Wofpgu8586 [facility] [id number] (07799) ALT (SGPT) 20 [iU]/L (Normal) Range: 0-32 [...] Glucose, Serum 89 mg/dL (Normal) Range: 65-99 18-Cjr-65010:43 Vitamin D Hydroxy (54087) Comments: PATIENT WAS FASTINGPERFORMED BY: [facility]6370 [facility] [id number] Vitamin D, 25-Hydroxy 43.0 ng/mL (Normal) Range: 30.0-100.0 Comments: Vitamin D deficiency has been defined by the [place] of[place]icine and an Endocrine Society practice guideline as alevel of serum 25-OH vitamin D less than 20 ng/mL (1,2).The Endocrine Society went on to further define vitamin Dinsufficiency as a level between 21 and 29 ng/mL (2).1. IOM ([place] of [place]). 2010. Dietary reference intakes for calcium and D. Fu [place]: The National Academies Press.2. Castillo MF, Yocasta SHABAZZ, JanessaChristophe MACIEL et al. Evaluation, treatment, and prevention of vitamin D deficiency: an Endocrine Society clinical practice guideline. JCEM. 2010; 96(7):1911-30. 56-Pqd-50330:43 TSH (36254) Comments: PATIENT WAS FASTINGPERFORMED BY: [facility] Xdajvu2056 [place] [id number] TSH 2.870 {uIU/mL} (Normal) Range: 0.450-4.500 54-Fld-125909:07 BILAT SCRN DIGITAL & CAD Radiology Report [...] Leal M.D.September 14, 2012 at 2:38:45 PM [id number] Signed GP/GP If you are the referring physician and would like to consult with theradiologist who provided this interpretation, please contact Allen Pak at [phone]. If this radiologist is unavailable, youwill be directed to another radiologist to assist. I f you are a patient with a question regarding this report, pleasecontactyour referring physician directly. Professional Interpretation Provided By: Duplia, Phone , The se documents contain legally [...] by: Samuel Leal MD 06-Aug-20129:37 Rapid Flu (53867 x 2) Influenza A Ag B Positive (Normal) 91-Igc-503551:27 MYOCARD PERF STRESS/REST MULT Radiology Report See [...] inducibleischemia. Dictated on 03/21/12 1104 by Gabby BRADLEY,TonyrosTranscribed on 03/21/12 1327 by Anselmo NOEL by Oscar Palacios MD on 03/21/12 1821 Sign by: Oscar Palacios MD 56-Tjc-618935:48 Vitamin D Hydroxy (46762) Comments: PATIENT NOT FASTINGPERFORMED BY: [employer]Internet [employer] S.L. Ybthuy4347 [facility] [id number] Vitamin D, 25-Hydroxy 46.3 ng/mL (Normal) Range: 30.0-100.0 Comments: Vitamin D deficiency has been defined by the [place] of[place]icine and an Endocrine Society practice guideline as alevel of serum 25-OH vitamin D less than 20 ng/mL (1,2).The Endocrine Society went on to further define vitamin Dinsufficiency as a level between 21 and 29 ng/mL (2).1. IOM ([place] of [place]). 2010. Dietary reference intakes for calcium and D. Fu [place]: The National Academies Press.2. Castillo MF, Yocasta NC, Jerri MACIEL, et al. Evaluation, treatment, and prevention of vitamin D deficiency: an Endocrine Society clinical practice guideline. JCEM. 2010; 96(7):1911-30. 93-Pxr-573214:48 Protein Electro, Random Urine Comments: PATIENT NOT FASTINGPERFORMED BY: [facility] Jliyvy7136 [facility] [id number] Please note: SPRCS (Normal) Comments: Protein electrophoresis scan will follow via computer, mail, orcourier delivery. M-Dereck, % Not Observed % (Normal) Gamma Globulin, U 29.4 % (Normal) Beta Globulin, U 22.4 % (Normal) Kfvge-9-Mpvgdasy, U 17.0 % (Normal) Nfwhz-2-Qbxrwhvv, U 5.0 % (Normal) Albumin, U 26.3 % (Normal) Protein,Total,Urine 2.1 mg/dL (Normal) Range: 0.0-15.0 79-Qhf-927568:48 PARATHORMONE (94144) Comments: PATIENT NOT FASTINGPERFORMED BY: 5 [facility] MobileM[facility]6370 [facility] [id number] PTH, Intact 19 pg/mL (Normal) Range: 15-65 04-Uyx-036052:48 Protein Electro.,S Comments: PATIENT NOT FASTINGPERFORMED BY: 5 [facility] MobileMcl[facility] Northern Michigan6370 [facility] [id number] Please note: SPRCS (Normal) Comments: Protein electrophoresis scan will follow via computer, mail, orcourier delivery. A/G Ratio 1.5 (Normal) Range: 0.7-2.0 Globulin, Total 2.8 g/dL (Normal) Range: 2.0-4.5 M-Dereck Not Observed g/dL (Normal) Gamma Globulin 0.9 g/dL (Normal) Range: 0.5-1.6 Beta Globulin 1.0 g/dL (Normal) Range: 0.6-1.3 Snjyx-1-Mmryvxkj 0.6 g/dL (Normal) Range: 0.4-1.2 Cwjgy-3-Betdiysl 0.2 g/dL (Normal) Range: 0.1-0.4 Albumin 4.2 g/dL (Normal) Range: 3.2-5.6 Protein, Total, Serum 7.0 g/dL (Normal) Range: 6.0-8.5 08-Bjc-194836:48 TSH (57580) Comments: PATIENT NOT FASTINGPERFORMED BY: 5 [facility] MobileM[facility]6370 [facility] [id number] TSH 1.760 {uIU/mL} (Normal) Range: 0.450-4.500 30-Ppo-630112:30 CHEST WITHOUT CONTRAST Radiology Report See Note [...] Leal M.D.February 09, 2012 at 8:57:03 AM [phone] onically Signed GP/GP If you are the referring physician and would like to consult with theradiologist who provided this interpretation, please contact Allen Pak at [phone]. If this r adiologist is unavailable, youwill be directed to another radiologist to assist. If you are a patient with a question regarding this report, pleasecontactyour referring physician directly. Professional Interpretation Provided By: Duplia, Phone , Dictated on 02/08/12 1137 by Susi Leal MDscribed on 02/09/12 0920 by ITS IMPORTSign by Yury Leal MD on 02/09/12 0921 Sign by: Samuel Leal MD 65-Rhi-463985:13 METABOLIC PANEL, COMPREHENSIVE Comments: A duplicate report has been generated due to demographic updateof the patient's Date of , Age, Gender, and/or Specimen Date.Please review patient results, reference intervals, and calculatedresults (50942) that may have been affected by this change.PERFORMED BY: [facility] Wbeekv2338 [facility] [id number] ALT (SGPT) 17 [iU]/L (Normal) Range: 0-40 [...] Glucose, Serum 84 mg/dL (Normal) Range: 65-99 65-Kfb-399115:13 CBC WITH MANUAL DIFF (87364) Comments: A duplicate report has been generated due to demographic updateof the patient's Date of , Age, Gender, and/or Specimen Date.Please review patient results, reference intervals, and calculatedresults that may have been affected by this change.PERFORMED BY: Pusher Asukiy5429 [facility] [id number] Immature Grans (Abs) 0.0 {x10E3/uL} (Normal) Range: [...] 3.77-5.28 WBC 7.1 {x10E3/uL} (Normal) Range: 4.0-10.5 42-Zgf-330160:18 Homocysteine, Plasma (93696) Comments: PATIENT NOT FASTINGPERFORMED BY: LabCoAstra Health CenterSluhho0739 [facility] [id number] Homocyst(e)ine, Plasma 11.4 umol/L (Normal) Range: 0.0-15.0 74-Yih-877309:18 Vitamin D Hydroxy Comments: PATIENT NOT FASTINGPERFORMED BY: LabCoAstra Health CenterSklzna1908 [facility] [id number] Information: [id number] (66951) Vitamin D, 25-Hydroxy 17.7 ng/mL (Abnormal) Range: 30.0-100.0 Comments: Vitamin D deficiency has been defined by the [place] of[place]icine and an Endocrine Society practice guideline as alevel of serum 25-OH vitamin D less than 20 ng/mL (1,2).The Endocrine Society went on to further define vitamin Dinsufficiency as a level between 21 and 29 ng/mL (2).1. IOM ([place] of Medicine). 2011. Dietary reference intakes for calcium and D. Fu [place]: The National Academies Press.2. Castillo MF, Yocasta SHABAZZ, Jerri MACIEL, et al. Evaluation, treatment, and prevention of vitamin D deficiency: an Endocrine Society clinical practice guideline. JCEM. 2010; 96(7):1911-30. 04-Rge-605083:15 BILAT SCRN DIGITAL & CAD Radiology Report [...] radiologist regarding this report, please call our 78M8qjqcsfj line @ Dictated on 08/30/11 2917 by Bo BRADLEY,Cosmeranscribed on 08/30/11 1421 by ITS IMPORTSign by Samuel Leal MD on 08/30/11 1422 Sign by: Bo BRADLEY,Samuel 89-Sws-489988:14 DEXA BONE DENSITY STUDY (HP) Radiology Report [...] logist regarding this report, please call our 23P6ylnwnih line @ Dictated on 08/30/11 1322 by Bo BRADLEY,Akshatribed on 08/30/11 1559 by ITS IMPORTSign by Bo BRADLEY,Anton aparicio on 08/30/11 1600 Sign by: Samuel Leal MD 24-Ypb-54326:42 Anticardiolipin Ab, IgA, Qn Comments: PATIENT WAS FASTINGPERFORMED BY: siXis [facility] [address] [id number] BY: [employer] LabJRKICKZ70 Flores FinoveraUNC Health [facility] [id number] BY: [facility] FOD4158 [facility] [id number] Anticardiolipin Ab,IgA,Qn <9 {APL_U/mL} Range: 0-11 (Normal) Comments: Negative: <12 Indeterminate: 12 - 20 Low-Med Positive: >20 - 80 High Positive: >80 17-Aug-2011 Antithrombin Activity 110 % (Normal) Comments: PATIENT WAS FASTINGPERFORMED BY: siXis [facility] Voppehniob[address] [id number] BY: [employer] LabInternet college internation S.L.rp Gqlycf2877 [facility] [id number] BY: [employer] [facility] 9:[address] [place] [address] [id number] Range: 75-135 55-Rov-02320:42 CBC With Differential/Platelet Comments: PATIENT WAS FASTINGPERFORMED BY: siXis [facility] [address] [id number] BY: [employer] LabJRKICKZ70 EcohausUNC Health [facility] [id number] BY: [facility] [address] [id number] Immature Grans (Abs) 0.0 {x10E3/uL} (Normal) Range: [...] 3.80-5.10 WBC 6.8 {x10E3/uL} (Normal) Range: 4.0-10.5 43-Ryi-10761:42 Comp. Metabolic Panel Comments: PATIENT WAS FASTINGPERFORMED BY: BN [facility] Pnvwcbgbne5924 [facility] [id number] BY: CB [facility] Bihaha1420 [facility] [id number] BY: TG [facility] (14) LEN9344 [facility] [id number] ALT (SGPT) 20 [iU]/L (Normal) Range: 0-40 [...] % (Normal) Comments: PATIENT WAS FASTINGPERFORMED BY: [employer] [address] [id number] BY: CB [employer] Spqrda3962 [facility] [id number] BY: TG [facility] [address] [facility] [id number] Range: 75-130 :42 Factor V Leiden Mutation Comments: PATIENT WAS FASTINGPERFORMED BY: [employer] [id number] BY: CB [facility] Aoxirz6487 [place] [id number] BY: TG [facility] NWI8304 [facility] [id number] Factor V Leiden FVNEG3 (Normal) Comments: Result: [...] in the workup for venous thrombosis include [id number] mutation in the factor II (prothrombin) gene,protein S and C deficiency, and antithromb in deficiencies.Anticardiolipin antibody and lupus anticoagulant analysismay be appropriate for certain patients, as well ashomocysteine levels. .Contact your local [facility] for information on how to orderadditional testing if desired. .Genetic counselors are available for health care* providers to discuss results at [phone] ([phone]). .Methodology:DNA analysis of the Factor V gene [...] Ph.D.Julia Escobar M.D .June Enriquez, Ph.D. . 93-Vaf-28346:42 Lupus Anticoagulant Comp Comments: PATIENT WAS FASTINGPERFORMED BY: LabCo[address] [id number] BY: 5 Star MobileLaurie [place] 3980270 [facility] [id number] BY: [place] [address] [facility] [id number] Interpretation Comment: (Normal) Comments: No lupus anticoagulant [...] Prothrombin Time(dPT) 47.8 {sec} (Abnormal) Range: 0.0-43.3 01-Mrd-75775:42 MTHFR Comments: PATIENT WAS FASTINGPERFORMED BY: [address] [employer] [id number] BY: GroupZoomAstra Health CenterAqoamc7311 [facility] [id number] BY: [facility] BON2053 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 One copy of the C677T mutation and one copy of the H4321Cxyejifub were identified. Population data suggest t hese [...] these results with health care providers at [phone] .The MTHFR enzyme is responsible for creating the circulatingform of folate. Folate is important in homocysteine regula-tion. Defects in the MT HFR enzyme can indirectly causeelevated homocysteine levels. The C677T mutation in theMTHFR gene can cause elevated homocysteine levels in tommy-viduals with insufficient folate, particularly when there are two mutations present. The H2350B mutation has not beenassociated with elevated homocysteine levels unless a Y080Ermkbsbrq is also present. Elevated serum homocysteine levelshave [...] .[employer] HORTON. (199 8). Nutrition Review 56:236-244.Kwaku Fox. (1997). Thromb Haemost 78:523- 526.Deanne and Zak. (2000). Am J Epidemiol 151:862-877. .Amol lira, Ph.D.Yady Patel, Ph.D.Emelyn Cortes, Ph.D.Sujey Muhammad, Ph.D.Monique Carter, Ph.D.Julia Escobar M.D.Val. Faye Enriquez, Ph.D. . 11-Qvq-98970:42 Protein C Deficiency Comments: PATIENT WAS FASTINGPERFORMED BY: BN [facility] Rnmliggqaz7276 [facility] [id number] BY: CB [facility] Tsuaua9163 [facility] [id number] BY: TG [facility] Profile CRP5476 [address] [place] [id number] Protein C-Functional 147 % (Normal) Range: 74-151 Protein C Antigen 117 % (Normal) Range: 70-140 :42 Protein S Panel Comments: PATIENT WAS FASTINGPERFORMED BY: [facility] [address] [id number] BY: [facility] Szonnn1652 [facility] [id number] BY: [facility] BCQ5432 [facility] [id number] Protein S-Functional 78 % (Normal) Range: 60-145 Protein S, Free 74 % (Normal) Range: 56-124 Protein S, Total 101 % (Normal) Range: 58-150 TSH 1.550 {uIU/mL} Comments: PATIENT WAS FASTINGPERFORMED BY: [facility] [address] [id number] BY: [facility] Otkoml9352 [facility] [id number] BY: TG [facility] :42 (Normal) VMB8977 [facility] [id number] Range: 0.450-4.500 Vitamin D, 25-Hydroxy 20.1 ng/mL Comments: PATIENT WAS FASTINGPERFORMED BY: [facility] [address] [id number] BY: [facility] Ridsak0341 [facility] [id number] BY: TG [facility] :42 (Abnormal) KON6470 [facility] [id number] Range: 30.0-100.0 Comments: Vitamin D deficiency has been defined by the [place] of[place]icine and an Endocrine Society practice guideline as alevel of serum 25-OH vitamin D less than 20 ng/mL (1,2).The Endocrine Society went on to further define vitamin Dinsufficiency as a level between 21 and 29 ng/mL (2).1. IOM ([place] of Medicine). 2011. Dietary reference intakes for calcium and D. Fu [place]: The National Academies Press.2. Castillo WHITE, Yocasta SHABAZZ, Jerri MACIEL, et al. Evaluation, treatment, and prevention of vitamin D deficiency: an Endocrine Society clinical practice guideline. JCEM. 2010; 96(7):1911-30. 90-Vnb-333638:01 CHEST WITHOUT CONTRAST Radiology Report See Note [...] 06/29/11 1512 Sign by: JUANITA CARRERO MD 31-Qjv-999720:02 PT (PROTHROMBIN TIME) Comments: PATIENT NOT FASTINGPERFORMED BY: LabCoSocorro General HospitalEcachn7292 [facility] [id number] Information: [id number] (03639) Prothrombin Time 31.0 {sec} (Abnormal) Range: 8.7-11.5 Comments: Effective June 20, 2011, the reference interval will be changing to: 9.1 - 12.0 INR 2.9 (Abnormal) Range: 0.8-1.2 Comments: Reference interval is for non-anticoagulated patients. . Suggested INR therapeutic range for Vitamin K anta gonist therapy: Standard Dose (moderate intensity therapeutic range): 2.0 - 3.0 Higher intensity therapeutic range 2.5 - 3.5 06-Usc-798422:29 PT (PROTHROMBIN TIME) Comments: PATIENT NOT FASTINGPERFORMED BY: [place] 0948270 [facility] [id number] Information: [id number] (97915) Prothrombin Time 23.9 {sec} (Abnormal) Range: 8.7-11.5 Comments: Effective June 20, 2011, the reference interval will be changing to: 9.1 - 12.0 INR 2.3 (Abnormal) Range: 0.8-1.2 Comments: Reference interval is for non-anticoagulated patients. . Suggested INR therapeutic range for Vitamin K anta gonist therapy: Standard Dose (moderate intensity therapeutic range): 2.0 - 3.0 Higher intensity therapeutic range 2.5 - 3.5 02-Enr-714801:21 PT (PROTHROMBIN TIME) Comments: PATIENT NOT FASTINGPERFORMED BY: [address] [id number] Information: [id number] (93190) Prothrombin Time 19.7 {sec} (Abnormal) Range: 8.7-11.5 Comments: Effective June 20, 2011, the reference interval will be changing to: 9.1 - 12.0 INR 1.9 (Abnormal) Range: 0.8-1.2 Comments: Reference interval is for non-anticoagulated patients. . Suggested INR therapeutic range for Vitamin K anta gonist therapy: Standard Dose (moderate intensity therapeutic range): 2.0 - 3.0 Higher intensity therapeutic range 2.5 - 3.5 90-Pqk-014200:40 PT (PROTHROMBIN TIME) Comments: PATIENT NOT FASTINGPERFORMED BY: [address] [id number] Information: [id number] (80226) Prothrombin Time 38.3 {sec} (Abnormal) Range: 8.7-11.5 INR 3.6 (Abnormal) Range: 0.8-1.2 Comments: Client Requested Flag Reference interval is for non- anticoagulated patients. . Suggested INR therapeutic ra nge for Vitamin K antagonist therapy: Standard Dose (moderate intensity therapeutic range): 2.0 - 3.0 Higher intensity therapeutic range 2.5 - 3.5 73-Weu-786133:08 PT (PROTHROMBIN TIME) (58413) Comments: PATIENT NOT FASTINGPERFORMED BY: [place] 0948270 [facility] [id number] Prothrombin Time 32.2 {sec} (Abnormal) Range: 8.7-11.5 INR 3.1 (Abnormal) Range: 0.8-1.2 Comments: Reference interval is for non-anticoagulated patients. . Suggested INR therapeutic range for Vitamin K anta gonist therapy: Standard Dose (moderate intensity therapeutic range): 2.0 - 3.0 Higher intensity therapeutic range 2.5 - 3.5 50-Uxr-058893:14 PT (PROTHROMBIN TIME) Comments: PATIENT NOT FASTINGPERFORMED BY: [place] 0948270 [facility] [id number] Information: [id number] ([id number]) Prothrombin Time 25.0 {sec} (Abnormal) Range: 8.7-11.5 INR 2.4 (Abnormal) Range: 0.8-1.2 Comments: Reference interval is for non-anticoagulated patients. . Suggested INR therapeutic range for Vitamin K anta gonist therapy: Standard Dose (moderate intensity therapeutic range): 2.0 - 3.0 Higher intensity therapeutic range 2.5 - 3.5 58-Ujc-114811:25 PT (PROTHROMBIN TIME) Comments: PATIENT NOT FASTINGPERFORMED BY: [facility]6370 [facility] [id number] Information: [id number] ([id number]) Prothrombin Time 35.1 {sec} (Abnormal) Range: 8.7-11.5 INR 3.3 (Abnormal) Range: 0.8-1.2 Comments: Reference interval is for non-anticoagulated patients. . Suggested INR therapeutic range for Vitamin K anta gonist therapy: Standard Dose (moderate intensity therapeutic range): 2.0 - 3.0 Higher intensity therapeutic range 2.5 - 3.5 :48 PT (PROTHROMBIN TIME) Comments: PATIENT NOT FASTINGPERFORMED BY: [place] 0948270 [facility] [id number] Information: [id number] ([id number]) Prothrombin Time 28.1 {sec} (Abnormal) Range: 8.7-11.5 INR 2.6 (Abnormal) Range: 0.8-1.2 Comments: Reference interval is for non-anticoagulated patients. . Suggested INR therapeutic range for Vitamin K anta gonist therapy: Standard Dose (moderate intensity therapeutic range): 2.0 - 3.0 Higher intensity therapeutic range 2.5 - 3.5 :09 PT (PROTHROMBIN TIME) Comments: PATIENT NOT FASTINGPERFORMED BY: [place] 0948270 [facility] [id number] Information: [id number] ([id number]) Prothrombin Time 25.4 {sec} (Abnormal) Range: 8.7-11.5 INR 2.4 (Abnormal) Range: 0.8-1.2 Comments: Reference interval is for non-anticoagulated patients. . Suggested INR therapeutic range for Vitamin K anta gonist therapy: Standard Dose (moderate intensity therapeutic range): 2.0 - 3.0 Higher intensity therapeutic range 2.5 - 3.5 :45 PT (PROTHROMBIN TIME) Comments: PATIENT NOT FASTINGPERFORMED BY: [facility]6[address] [facility] [id number] Information: [id number] ([id number]) Prothrombin Time 26.1 {sec} (Abnormal) Range: 8.7-11.5 INR 2.4 (Abnormal) Range: 0.8-1.2 Comments: Reference interval is for non-anticoagulated patients. . Suggested INR therapeutic range for Vitamin K anta gonist therapy: Standard Dose (moderate intensity therapeutic range): 2.0 - 3.0 Higher intensity therapeutic range 2.5 - 3.5 28-Vlr-016086:06 Prothrombin Time (PT) Comments: PERFORMED BY: [facility] [id number] Prothrombin Time 25.8 {sec} (Abnormal) Range: 8.7-11.5 INR 2.4 (Abnormal) Range: 0.8-1.2 Comments: Reference interval is for non-anticoagulated patients. . Suggested INR therapeutic range for Vitamin K anta gonist therapy: Standard Dose (moderate intensity therapeutic range): 2.0 - 3.0 Higher intensity therapeutic range 2.5 - 3.5 :56 PT (PROTHROMBIN TIME) Comments: PATIENT NOT FASTINGPERFORMED BY: [place] 0948270 [facility] [id number] Information: [id number] ([id number]) Prothrombin Time 18.9 {sec} (Abnormal) Range: 8.7-11.5 INR 1.8 (Abnormal) Range: 0.8-1.2 Comments: Reference interval is for non-anticoagulated patients. . Suggested INR therapeutic range for Vitamin K anta gonist therapy: Standard Dose (moderate intensity therapeutic range): 2.0 - 3.0 Higher intensity therapeutic range 2.5 - 3.5 :14 Prothrombin Time (PT) Comments: PERFORMED BY: [place] 0948270 [facility] [id number] Prothrombin Time 29.7 {sec} (Abnormal) Range: 8.7-11.5 INR 2.8 (Abnormal) Range: 0.8-1.2 Comments: Reference interval is for non-anticoagulated patients. . Suggested INR therapeutic range for Vitamin K anta gonist therapy: Standard Dose (moderate intensity therapeutic range): 2.0 - 3.0 Higher intensity therapeutic range 2.5 - 3.5 :05 Prothrombin Time (PT) Comments: PERFORMED BY: [place] 0948270 [facility] [id number] Prothrombin Time 38.0 {sec} (Abnormal) Range: 8.7-11.5 INR 3.5 (Abnormal) Range: 0.8-1.2 Comments: Reference interval is for non-anticoagulated patients. . Suggested INR therapeutic range for Vitamin K anta gonist therapy: Standard Dose (moderate intensity therapeutic range): 2.0 - 3.0 Higher intensity therapeutic range 2.5 - 3.5 96-Nka-305379:45 Prothrombin Time (PT) Comments: PERFORMED BY: [facility]6[address] [facility] [id number] Prothrombin Time 32.4 {sec} (Abnormal) Range: 8.7-11.5 INR 3.0 (Abnormal) Range: 0.8-1.2 Comments: Reference interval is for non-anticoagulated patients. . Suggested INR therapeutic range for Vitamin K anta gonist therapy: Standard Dose (moderate intensity therapeutic range): 2.0 - 3.0 Higher intensity therapeutic range 2.5 - 3.5 :46 Prothrombin Time (PT) Comments: PERFORMED BY: [place] 0948270 [facility] [id number] Prothrombin Time 34.4 {sec} (Abnormal) Range: 8.7-11.5 INR 3.2 (Abnormal) Range: 0.8-1.2 Comments: Reference interval is for non-anticoagulated patients. . Suggested INR therapeutic range for Vitamin K anta gonist therapy: Standard Dose (moderate intensity therapeutic range): 2.0 - 3.0 Higher intensity therapeutic range 2.5 - 3.5 :39 Prothrombin Time (PT) Comments: PERFORMED BY: [facility]6[address] [facility] [id number] Prothrombin Time 31.7 {sec} (Abnormal) Range: 8.7-11.5 INR 3.0 (Abnormal) Range: 0.8-1.2 Comments: Reference interval is for non-anticoagulated patients. . Suggested INR therapeutic range for Vitamin K anta gonist therapy: Standard Dose (moderate intensity therapeutic range): 2.0 - 3.0 Higher intensity therapeutic range 2.5 - 3.5 :03 Prothrombin Time (PT) Comments: PERFORMED BY: [place] 0948270 [facility] [id number] Prothrombin Time 31.1 {sec} (Abnormal) Range: 8.7-11.5 INR 2.9 (Abnormal) Range: 0.8-1.2 Comments: Reference interval is for non-anticoagulated patients. . Suggested INR therapeutic range for Vitamin K anta gonist therapy: Standard Dose (moderate intensity therapeutic range): 2.0 - 3.0 Higher intensity therapeutic range 2.5 - 3.5 09-Mnu-670984:00 Prothrombin Time (PT) Comments: PERFORMED BY: [employer]2274 [facility] [id number] Prothrombin Time 31.3 {sec} (Abnormal) Range: 8.7-11.5 INR 2.9 (Abnormal) Range: 0.8-1.2 Comments: Reference interval is for non-anticoagulated patients. . Suggested INR therapeutic range for Vitamin K anta gonist therapy: Standard Dose (moderate intensity therapeutic range): 2.0 - 3.0 Higher intensity therapeutic range 2.5 - 3.5 :47 Prothrombin Time (PT) Comments: PERFORMED BY: [employer] Oxgguf4123 [facility] [id number] Prothrombin Time 20.6 {sec} (Abnormal) Range: 8.7-11.5 INR 1.9 (Abnormal) Range: 0.8-1.2 Comments: Reference interval is for non-anticoagulated patients. . Suggested INR therapeutic range for Vitamin K anta gonist therapy: Standard Dose (moderate intensity therapeutic range): 2.0 - 3.0 Higher intensity therapeutic range 2.5 - 3.5 :36 Prothrombin Time (PT) Comments: PERFORMED BY: GroupZoomAstra Health CenterBxuqgi6448 [facility] [id number] Prothrombin Time 27.7 {sec} (Abnormal) Range: 8.7-11.5 INR 2.6 (Abnormal) Range: 0.8-1.2 Comments: Reference interval is for non-anticoagulated patients. . Suggested INR therapeutic range for Vitamin K anta gonist therapy: Standard Dose (moderate intensity therapeutic range): 2.0 - 3.0 Higher intensity therapeutic range 2.5 - 3.5 :32 Prothrombin Time (PT) Comments: PERFORMED BY: GroupZoomAstra Health CenterIphpxz4679 [facility] [id number] Prothrombin Time 44.8 {sec} (Abnormal) Range: 8.7-11.5 INR 4.2 (Abnormal) Range: 0.8-1.2 Comments: Client Requested Flag Reference interval is for non- anticoagulated patients. . Suggested INR therapeutic ra nge for Vitamin K antagonist therapy: Standard Dose (moderate intensity therapeutic range): 2.0 - 3.0 Higher intensity therapeutic range 2.5 - 3.5 31-May-20108:39 CHEST WITH CONTRAST Radiology Report See Note (Normal) Comments: Exam Number: [id number] LINICAL:This is a 64-year-old female patient with [...] Report See Note (Normal) Comments: Exam Number: [id number] AMMOGRAPHY - BILATERAL SCREENING INDICATION:Routine annual screening [...] attaching a ResultCode to this exam. ADDENDUM: [id number] HPBI/MDS Reported By: VIKTORIYA MAJANO M.D. 70-Ffx-052214:55 Prothrombin Time (PT) Comments: PERFORMED BY: [facility]6[address] [facility] [id number] Prothrombin Time 29.1 {sec} (Abnormal) Range: 8.7-11.5 INR 2.7 (Abnormal) Range: 0.8-1.2 Comments: Reference interval is for non-anticoagulated patients. . Suggested INR therapeutic range for Vitamin K anta gonist therapy: Standard Dose (moderate intensity therapeutic range): 2.0 - 3.0 Higher intensity therapeutic range 2.5 - 3.5 18-Gpd-539408:29 Prothrombin Time (PT) Comments: PERFORMED BY: [facility]6[address] [facility] [id number] Prothrombin Time 30.2 {sec} (Abnormal) Range: 8.7-11.5 INR 2.8 (Abnormal) Range: 0.8-1.2 Comments: Reference interval is for non-anticoagulated patients..Suggested INR therapeutic range for Vitamin Kantagonist therapy:Standard Dose (moderate intensitytherapeutic range): 2.0 - 3.0Higher intensity therapeutic range 2.5 - 3.5 37-Gkd-089771:36 Prothrombin Time (PT) Comments: PERFORMED BY: [facility]6[address] [facility] [id number] Prothrombin Time 23.4 {sec} (Abnormal) Range: 8.7-11.5 INR 2.2 (Abnormal) Range: 0.8-1.2 Comments: Reference interval is for non-anticoagulated patients..Suggested INR therapeutic range for Vitamin Kantagonist therapy:Standard Dose (moderate intensitytherapeutic range): 2.0 - 3.0Higher intensity therapeutic range 2.5 - 3.5 32-Jol-072141:04 PT (Prothrobim Time) Comments: PATIENT NOT FASTINGPERFORMED BY: [place] 0948270 [facility] [id number] Information: [id number] ([id number]) Prothrombin Time 31.7 {sec} (Abnormal) Range: 8.7-11.5 INR 3.0 (Abnormal) Range: 0.8-1.2 Comments: Reference interval is for non-anticoagulated patients..Suggested INR therapeutic range for Vitamin Kantagonist therapy:Standard Dose (moderate intensitytherapeutic range): 2.0 - 3.0Higher intensity therapeutic range 2.5 - 3.5 :34 LIPID PANEL (56248) Comments: PATIENT WAS FASTINGPERFORMED BY: [employer]70 [facility] [id number] HDL Cholesterol 61 mg/dL (Normal) Comments: According [...] PANEL, COMPREHENSIVE Comments: PATIENT WAS FASTINGPERFORMED BY: [employer]6370 [facility] [id number] ([id number]) ALT (SGPT) 19 [iU]/L (Normal) Range: 0-40 [...] Glucose, Serum 82 mg/dL (Normal) Range: 65-99 99-Dcz-33588:34 CBC WITH MANUAL DIFF Comments: PATIENT WAS FASTINGPERFORMED BY: LabCoAstra Health CenterXaspjy3102 [facility] [id number] Information: ADD [id number] AND DRAW FEE [id number] [phone] ([id number]) Immature Grans (Abs) 0.0 {x10E3/uL} (Normal) Range: [...] (Normal) Range: 4.0-10.5 :34 Vitamin D Hydroxy (05534) Comments: PATIENT WAS FASTINGPERFORMED BY: [employer] [facility] [id number] Vitamin D, 25-Hydroxy 48.1 ng/mL (Normal) Range: 32.0-100.0 Comments: Recent studies consider the lower limit of 32.0 ng/mL to be athreshold for optimal health.Simon BW. J Nutr. 2004;135(2):317-22. 24-Vlf-017527:18 Prothrombin Time (PT) Comments: PERFORMED BY: [employer]70 [facility] [id number] Prothrombin Time 26.5 {sec} (Abnormal) Range: 8.7-11.5 INR 2.7 (Abnormal) Range: 0.8-1.2 Comments: Reference interval is for non-anticoagulated patients..Suggested INR therapeutic range for Vitamin Kantagonist therapy:Standard Dose (moderate intensitytherapeutic range): 2.0 - 3.0Higher intensity therapeutic range 2.5 - 3.5 63-Rgq-578523:55 Prothrombin Time (PT) Comments: PERFORMED BY: [employer] [facility] [id number] Prothrombin Time 27.7 {sec} (Abnormal) Range: 8.7-11.5 INR 2.8 (Abnormal) Range: 0.8-1.2 Comments: Reference interval is for non-anticoagulated patients..Suggested INR therapeutic range for Vitamin Kantagonist therapy:Standard Dose (moderate intensitytherapeutic range): 2.0 - 3.0Higher intensity therapeutic range 2.5 - 3.5 4-Csg-129851:49 Prothrombin Time (PT) Comments: PERFORMED BY: Mocavo70 [facility] [id number] Prothrombin Time 26.0 {sec} (Abnormal) Range: 8.7-11.5 INR 2.6 (Abnormal) Range: 0.8-1.2 Comments: Reference interval is for non-anticoagulated patients..Suggested INR therapeutic range for Vitamin Kantagonist therapy:Standard Dose (moderate intensitytherapeutic range): 2.0 - 3.0Higher intensity therapeutic range 2.5 - 3.5 20-Ptr-10525:37 CHEST WITH CONTRAST Radiology Report See Note (Normal) Comments: Exam Number: [id number] CLINICAL:Fluoroscopy study for pulmonary embolism and lymphadenopathy [...] isadvised.Emphysema.No mediastinal lymphadenopathy. Reported By: DONELL FERGUSON 5-Mio-255875:16 Prothrombin Time (PT) Comments: PERFORMED BY: [employer] [facility] [id number] Prothrombin Time 25.2 {sec} (Abnormal) Range: 8.7-11.5 INR 2.6 (Abnormal) Range: 0.8-1.2 Comments: Reference interval is for non-anticoagulated patients..Suggested INR therapeutic range for Vitamin Kantagonist therapy:Standard Dose (moderate intensitytherapeutic range): 2.0 - 3.0Higher intensity therapeutic range 2.5 - 3.5 08-Iou-086491:50 Prothrombin Time (PT) Comments: PERFORMED BY: [facility]6370 [facility] [id number] Prothrombin Time 29.3 {sec} (Abnormal) Range: 8.7-11.5 INR 3.0 (Abnormal) Range: 0.8-1.2 Comments: Reference interval is for non-anticoagulated patients..Suggested INR therapeutic range for Vitamin Kantagonist therapy:Standard Dose (moderate intensitytherapeutic range): 2.0 - 3.0Higher intensity therapeutic range 2.5 - 3.5 69-Dlz-545582:07 Prothrombin Time (PT) Comments: [facility]FORMED BY: [facility] [id number] Prothrombin Time 19.4 {sec} (Abnormal) Range: 8.7-11.5 INR 1.9 (Abnormal) Range: 0.8-1.2 Comments: Reference interval is for non-anticoagulated patients..Suggested INR therapeutic range for Vitamin Kantagonist therapy:Standard Dose (moderate intensitytherapeutic range): 2.0 - 3.0Higher intensity therapeutic range 2.5 - 3.5 26-Vtm-540043:16 Prothrombin Time (PT) Comments: PERFORMED BY: [facility]6[address] [facility] [id number] Prothrombin Time 21.6 {sec} (Abnormal) Range: 8.7-11.5 INR 2.2 (Abnormal) Range: 0.8-1.2 Comments: Reference interval is for non-anticoagulated patients..Suggested INR therapeutic range for Vitamin Kantagonist therapy:Standard Dose (moderate intensitytherapeutic range): 2.0 - 3.0Higher intensity therapeutic range 2.5 - 3.5 06-Ycx-71715:21 MYOCARD PERF STRESS/REST MULT Radiology Report See Note (Normal) Comments: Exam Number: [id number] REGADENOSON CARDIOLITE STUDY HISTORYThis is a 64-year-old [...] orinducible ischemia. Reported By: OSCAR PALACIOS M.D. 15-Mop-581774:41 Prothrombin Time (PT) Comments: PERFORMED BY: Mocavo70 [facility] [id number] Prothrombin Time 19.6 {sec} Range: 8.7-11.5 (Abnormal) INR 2.0 (Abnormal) Range: 0.8-1.2 Comments: Reference interval is for non-anticoagulated patients..Suggested INR therapeutic range for Vitamin Kantagonist therapy:Standard Dose (moderate intensitytherapeutic range): 2.0 - 3.0Higher intensity therapeutic range 2.5 - 3.5 08-Oct-2009 Vitamin D, 25-Hydroxy 21.4 ng/mL Comments: PERFORMED BY: [employer]70 [facility] [id number] 11:41 (Abnormal) Range: 32.0-100.0 Comments: Recent studies consider the lower limit of 32.0 ng/mL to be athreshold for optimal health.Simon NUNEZ. J Nutr. 2004;135(2):317-22. 0-Tep-698763:50 Prothrombin Time (PT) Comments: PERFORMED BY: [employer] [facility] [id number] Prothrombin Time 18.2 {sec} (Abnormal) Range: 8.7-11.5 INR 1.8 (Abnormal) Range: 0.8-1.2 Comments: Reference interval is for non-anticoagulated patients..Suggested INR therapeutic range for Vitamin Kantagonist therapy:Standard Dose (moderate intensitytherapeutic range): 2.0 - 3.0Higher intensity therapeutic range 2.5 - 3.5 : LDH 201 [iU]/L (Normal) Comments: PERFORMED BY: [employer] [facility] [id number] Range: 100-250 5-Xdr-191183:33 Prothrombin Time (PT) Comments: PERFORMED BY: [employer] Gtnthk5577 [facility] [id number] Prothrombin Time 14.6 {sec} (Abnormal) Range: 8.7-11.5 INR 1.4 (Abnormal) Range: 0.8-1.2 Comments: Reference interval is for non-anticoagulated patients..Suggested INR therapeutic range for Vitamin Kantagonist therapy:Standard Dose (moderate intensitytherapeutic range): 2.0 - 3.0Higher intensity therapeutic range 2.5 - 3.5 LDH 227 U/L (Abnormal) Range: 100-190 :50 82-Ieh-302461:00 A-CARDIO [id number] ANTICARDIO IgG < 6 {GPL_U/mL} (Normal) Range: 0-10 Comments: Negative: <11Indeterminate: 11 - 19Low-Med Positive: 20 - 80Positive: >80 ANTICARDIO IgM 7 {MPL_U/mL} (Normal) Range: 0-9 Comments: Negative: <10Indeterminate: 10 - 19Low-Med Positive: 20 - 80Positive: >80Performed At: [address]D[place], [place] [id number] : C-REACTIVE PROT < 2.90 mg/L (Normal) [...] T PROT 6.9 g/dL (Normal) Range: 6.4-8.2 91-Pwj-976532:00 ESR SED RATE 11 mm/h (Normal) Range: 0-30 23-Dmf-63046:49 PET/CT TUMOR BASE TO MID THIGH Radiology Report See Note (Normal) Comments: Exam Number: [id number] EXAM: Body PET study INDICATIONS: A 64-year-old [...] titativecriteria for centrally located thoracic/mediastinal viable neoplasm.(Maxine guzman al, Journal of Clinical Oncology 16:2142, 1998). 3. Heterogeneous radiopharmaceutical concentration noted i n thebilateral supraclavicular regions is consistent with the presence ofvisualization of brown adipose tissue, with associated thoracicparavertebral muscle tension artifact. (Cristiana, [facility] al of Nuclear Medicine 29:1393, 2002). Reported By: VERÓNICA CHAPA 20-Csi-345158:15 PRO TIME Comments: CALL RESULTS TO DR. PEACOCK [phone] CALLED TO Jerome RAMON 09/10/09 LEO THAKUR.REPORT READ BACK BY SAME.; see not in emr to DF INR 3.2 (Normal) PROTIME 37.3 s (Abnormal) Range: 9.1-11.7 :47 TSH (03327) Comments: PATIENT NOT FASTINGPERFORMED BY: PRANEETH [employer] Eklsxh1219 [facility] [id number] TSH 1.520 {uIU/mL} (Normal) Range: 0.450-4.500 :47 CBC WITH MANUAL DIFF Comments: PATIENT NOT FASTINGPERFORMED BY: [facility] Xaaskj5851 [facility] [id number] Information: [id number] (03994) Baso (Absolute) 0.0 {x10E3/uL} (Normal) Range: 0.0-0.2 [...] 3.80-5.10 WBC 11.1 {x10E3/uL} (Abnormal) Range: 4.0-10.5 2-Muk-012131:47 METABOLIC PANEL, COMPREHENSIVE Comments: PATIENT NOT FASTINGPERFORMED BY: [facility] Wgtsyu7165 [facility] [id number] ([id number]) ALT (SGPT) 38 [iU]/L (Normal) Range: 0-40 [...] Glucose, Serum 94 mg/dL (Normal) Range: 65-99 5-Muy-394250:47 LDH (LD) (LACTATE DEHYDROGENASE) Comments: PATIENT NOT FASTINGPERFORMED BY: [employer] S.L.Astra Health CenterJgrpvi7030 [facility] [id number] ([id number]) LDH 410 [iU]/L (Abnormal) Range: 100-250 1-Yaa-713256:47 URINE HARJIT CULTURE (CRISTA COL Comments: PATIENT NOT FASTINGPERFORMED BY: LabCoAstra Health CenterVqfohy4244 [facility] [id number] COUNT) ([id number]) Result 1 MUG (Normal) Comments: Mixed urogenital flora3,000 Colonies/mL . Urine Final report (Normal) Culture,Comprehensive 27-Bti-30821:49 VIT D,25 63685 43.4 ng/mL (Normal) Range: 32.0-100.0 Comments: Recent studies consider the lower limit of 32.0 ng/mL to jaci threshold for optimal health.Simon NUNEZ. J Nutr. 2004;135(2):317-22.Performed At: [facility] [place] [id number] 99-Cww-960749:4 VIT D,25 84319 26.2 ng/mL (Abnormal) Range: 32.0-100.0 0 Comments: Recent studies consider the lower limit of 32.0 ng/mL to jaci threshold for optimal health.Simon NUNEZ. J Nutr. 2004;135(2):317-22.Performed At: [address] [id number] 33-Rhh-143561:26 BILAT SCRN DIGITAL & CAD Radiology Report See Note (Normal) Comments: Exam Number: [id number] MAMMOGRAM, BILATERAL SCREENING DIGITAL AND CAD HISTORYRoutine [...] mammograms werealso examined with computer-aided detection software ([employer], [employer] Reported By: VIKTORIYA MAJANO M.D. 30-Iaa-116784:25 DEXA BONE DENSITY STUDY (HP) Radiology Report See Note (Normal) Comments: Exam Number: [id number] BONE DENSITOMETRY HISTORYOsteopenia. TECHNIQUE Bone densitometry of [...] left hip. Reported By: VIKTORIYA MAJANO M.D. 69-Mjj-03560:20 CBCD,SMEAR DIFF BAND 1 % (Normal) Range: [...] {uIU/mL} (Normal) Range: 0.34-4.82 :20 VIT D,25 19206 21.4 ng/mL (Abnormal) Range: 32.0-100.0 Comments: Recent studies consider the lower limit of 32.0 ng/mL to jaci threshold for optimal health.Simon NUNEZ. J Nutr. 2004;135(2):317-22.Performed At: [facility]6[address] [place], [place] [id number] 92-Qtn-92254:20 VITAMIN B12 685 pg/mL (Normal) Range: 211-911 :11 Thin prep Pap (57238) Comments: Source.............CervicalLMP / Prev Treat...OED=[id number]. of containers..01 CYTYC Thin Prep VialPATIENT NOT FASTINGClinical Information: ADD [id number] PERFORMED BY: [employer] [id number] . . (Normal) DIAGNOSIS: SPRCS (Normal) Comments: NEGATIVE FOR INTRAEPITHELIAL LESION AND MALIGNANCY.CELLULAR CHANGES ASSOCIATED WITH ATROPHY ARE PRESENT.Satisfactory for evaluation. Endocervical component may not bedistinguished in cases of atrophy.V 72.31 ; Routine gynecological examinationSchanning Elam, Entry Tech (ASCP)Clari Hernandez, Supervisory Entry Tech (ASCP) Note: PAPSMR (Normal) Comments: The Pap [...] resulttherefore, no HPV testing was performed. . :48 KNEE,4 OR MORE VIEWS Radiology Report See Note (Normal) Comments: Exam Number: [id number] FOUR VIEWS LEFT KNEE AP, LATERAL, TUNNEL [...] and Wt loss Indication: Elevated hemoglobin A1c MDVI Wellness Physical : Eprescribed prescriptions (G8553) Indication: [...] woman exam Planned Observations METABOLIC PANEL, COMPREHENSIVE (17160)Indication: Elevated hemoglobin A1c On: 43-Vav-94037:50 Request CBC with auto diff (48811)Indication: Gastroesophageal reflux disease without esophagitis On: :07 Request METABOLIC PANEL, COMPREHENSIVE (96054)Indication: Gastroesophageal reflux disease without esophagitis On: :07 Request LIPID PANEL (69763)Indication: Other hyperlipidemia On: :06 Request TSH (55841)Indication: Thyroid Nodule On: :06 Request Vitamin D Hydroxy (78780)Indication: Vitamin D deficiency, unspecified On: :06 Request CBC W/AUTO DIFF WBC (64914)Indication: Osteopenia of multiple sites On: :14 Request METABOLIC PANEL, COMPREHENSIVE (94476)Indication: Osteopenia of multiple sites On: :14 Request Vitamin D Hydroxy (84583)Indication: Vitamin D deficiency, unspecified On: :13 Request LIPID PANEL (31574)Indication: Other hyperlipidemia On: :13 Request TSH (49717)Indication: Thyroid Nodule On: :13 Request METABOLIC PANEL, COMPREHENSIVE (78292)Indication: Other hyperlipidemia On: :28 Request LIPID PANEL (65104)Indication: Other hyperlipidemia On: 89-Fce-476242:27 Request Vitamin D Hydroxy (41353)Indication: Vitamin D deficiency, unspecified On: 00-Uyf-168831:20 Request Influenza A&B Viral Culture ([id number])Indication: Fever and chills On: :48 Request Comments: positive BHad flu shot Vitamin D Hydroxy ([id number])Indication: Osteopenia of multiple sites On: 21-Gva-315052:15 Request Protein S Profile ([id number])Indication: Pulmonary embolism (Renamed from PE (pulmonary embolism)) On: :13 Request Protein C Profile ([id number])Indication: Pulmonary embolism (Renamed from PE (pulmonary embolism)) On: :13 Request MTHFR ([id number])Indication: Pulmonary embolism (Renamed from PE (pulmonary embolism)) On: :13 Request Antiphospholipid atb (30015)Indication: Pulmonary embolism (Renamed from PE (pulmonary embolism)) On: :13 Request ANTICOAG ANTTHROMB III & ASSAY ([id number])Indication: Pulmonary embolism (Renamed from PE (pulmonary embolism)) On: :13 Request ANTITHROMBIN III ACTIVTY ([id number])Indication: Pulmonary embolism (Renamed from PE (pulmonary embolism)) On: :13 Request CLOTTING FACTOR II ([id number])Indication: Pulmonary embolism (Renamed from PE (pulmonary embolism)) On: :12 Request Factor V Leiden ([id number])Indication: Pulmonary embolism (Renamed from PE (pulmonary embolism)) On: :12 Request PTT PLASMA SUBSTITUTION ([id number]) #[id number]: Pulmonary embolism (Renamed from PE (pulmonary embolism)) On: :12 Request PAL VIPER VENOM-DILUT ([id number]) #[id number]: Pulmonary embolism (Renamed from PE (pulmonary embolism)) On: :12 Request TSH ([id number])Indication: Osteopenia of multiple sites On: :09 Request METABOLIC PANEL, COMPREHENSIVE ([id number])Indication: Pulmonary embolism (Renamed from PE (pulmonary embolism)) On: :09 Request CBC WITH MANUAL DIFF ([id number])Indication: Pulmonary embolism (Renamed from PE (pulmonary embolism)) On: :09 Request Vitamin D Hydroxy ([id number])Indication: Vitamin D deficiency, unspecified On: :09 Request Vitamin D Hydroxy ([id number])Indication: Vitamin D deficiency, unspecified On: 2-Qbs-552691:43 Request CBC WITH MANUAL DIFF ([id number])Indication: Anemia, unspecified On: 73-Sty-170405:22 Request LDH (LD) (LACTATE DEHYDROGENASE) ([id number])Indication: Elevated LFTs On: :22 Request Urinalysis, Office ([id number])Indication: Low back pain (Renamed from LBP (low back pain)) On: :43 Request Vitamin D Hydroxy ([id number])Indication: vit d def On: 67-Xuz-537953:11 Request Vitamin D Hydroxy (90181)Indication: vit d def On: 0-Kix-673166:14 Request LIPID PANEL ([id number])Indication: Well woman exam On: 29-Bji-197543:58 Request METABOLIC PANEL, COMPREHENSIVE ([id number])Indication: Osteopenia of multiple sites On: 33-Vgg-735878:58 Request CBC WITH MANUAL DIFF ([id number])Indication: Osteopenia of multiple sites On: 59-Dhk-022869:58 Request Vitamin D Hydroxy ([id number])Indication: Osteopenia of multiple sites On: 96-Onh-136447:56 Request TSH ([id number])Indication: Osteopenia of multiple sites On: 20-Xcl-987699:55 Request VITAMIN B-12 (CYANOCOBALAMIN) ([id number])Indication: Paresthesia On: 54-Hzc-304327:55 Request Planned Procedures Nerve ConductionBy: Fast DO, Isabella A On: 02-Jul-2018 Intent Fast DO, Isabella A Comments: both legs EMGBy: Fast DO, Isabella A Fast DO, On: 02-Jul-2018 Intent Isabella A Comments: both legs Flu Vaccine (Quadrivalent) 22553Ll: On: 02-Jul-2018 Intent Fast DO, Isabella A Fast DO, Isabella A ELECTROCARDIOGRAM, COMPLETE (ECG) On: 02-Jul-2018 Intent ([id number])By: Fast DO, Isabella A Fast DO, Isabella A Ultrasound - ThyroidBy: Fast DO, On: 30-Mar-2018 Intent Isabella A Fast DO, Isabella A SCREENING DIGITAL TOMOSYNTHESIS OF On: 30-Mar-2018 Intent BREAST ([id number])By: Fast DO, Isabella A Fast DO, Isabella A Ultrasound - ThyroidBy: Fast DO, On: 24-Nov-2017 Intent Isabella A Fast DO, Isabella A Comments: end of december SCREENING DIGITAL TOMOSYNTHESIS OF On: 24-Nov-2017 Intent BREAST ([id number])By: Fast DO, Isabella A Fast DO, Isabella A ELECTROCARDIOGRAM, COMPLETE (ECG) On: 19-Jul-2017 Intent ([id number])By: Fast DO, Isabella A Fast DO, Comments: ekg showed normal sinus rhythym, normal axis, no acute st/t wave changes prolonged qt unchanged Isabella A Ultrasound - ThyroidBy: Fast DO, On: 13-Dec-2016 Intent Isabella A Fast DO, Isabella A Comments: due 01/17 SCREENING DIGITAL TOMOSYNTHESIS OF On: 13-Dec-2016 Intent BREAST ([id number])By: Fast DO, Isabella A Comments: due 01/17 Fast DO, Isabella A MRI OF BRAIN WITH AND WITHOUT On: 19-Aug-2016 Intent CONTRAST ([id number])By: Fast DO, Isabella A Fast DO, Isabella A Nerve ConductionBy: Fast DO, Isabella A On: 19-Aug-2016 Intent Fast DO, Isabella A Comments: right arm EMGBy: Fast DO, Isabella A Fast DO, On: 19-Aug-2016 Intent Isabella A Comments: right arm DEXA SCAN AXIAL SKELETON ([id number])By: On: 19-Aug-2016 Intent Fast DO, Isabella A Fast DO, Isabella A Flu Vaccine (Quadrivalent) [id number]: On: 19-Aug-2016 Intent Fast DO, Isabella A Fast DO, Isabella A Comments: Lot:[id number]:01/27/17Dose:0.5mLRoute:IMSite:L DltdGiven By:VLAD signed ADMINISTRATION OF INFLUENZA VIRUS On: 19-Aug-2016 Intent VACCINE (G0008)By: Fast DO, Isabella A Fast DO, Isabella A PNEUM VAC ADLT/IMUMNOSPR, SBC/INTRM On: 06-Jul-2016 Intent ([id number])By: Fast DO, Isabella A Fast DO, Comments: Lot:[id number]:12/03/17Dose:0.5mgRoute:imSite:norm Knight By:VLAD signed Isabella A MAMMOGRAM, SCREENING, BOTH BREAST On: 04-Sep-2015 Intent ([id number])By: Fast DO, Isabella A Fast DO, Isabella A Ultrasound - ThyroidBy: Fast DO, On: 04-Sep-2015 Intent Isabella A Fast DO, Isabella A MAMMOGRAM, SCREENING, BOTH BREAST On: 28-Apr-2015 Intent ([id number])By: Fast DO, Isabella A Fast DO, Comments: end apr Isabella A Flu Vaccine (Quadrivalent) [id number]: On: 28-Apr-2015 Intent Fast DO, Isabella A Fast DO, Isabella A Comments: Lot #:[id number] date: 12/2015Amount given:prefilled syringeSite given:Norm Dlmarcelled, IMGiven by: LUZ Olson and ELENI signed ADMINISTRATION OF INFLUENZA VIRUS On: 28-Apr-2015 Intent VACCINE (G0008)By: Fast DO, Isabella A Fast DO, Isabella A Overnight Pulse OX ([id number])By: Luis Alberto On: 02-Mar-2015 Intent DO, Isabella A Fast DO, Isabella A Comments: gave overnight paulse ox to pt with new batteries. Explained to patient how it worked and had her demonstrate it back to me so I knew she was aware. Told patient to bring back before noon if possible on 03/02/15. EKG ([id number])By: Fast DO, Isabella A On: 26-Dec-2014 Intent Fast DO, Isabella A Comments: ekg showed normal sinus rhythym, normal axis, no acute st/t wave changes OtherBy: Fast DO, Isabella A Fast DO, On: 02-Sep-2014 Intent Isabella A Comments: sleep study Overnight Pulse OX ([id number])By: Luis Alberto On: 29-Aug-2014 Intent DO, Isabella A Fast DO, Isabella A Ultrasound - ThyroidBy: Fast DO, On: 29-Aug-2014 Intent Isabella A Fast DO, Isabella A Prevnar 13 ([id number])By: Loki MARIA, On: 30-May-2014 Intent Sindy Comments: [id number] arm, IMAS Overnight Pulse OX ([id number])By: Luis Alberto On: 30-May-2014 Intent DO, Isabella A Fast DO, Isabella A Comments: On 2 Liters at night Given monitor A Overnight Pulse OX ([id number])By: Luis Alberto On: 23-May-2014 Intent DO, Isabella A Fast DO, Isabella A FLU VAC, SPLIT, >3 YEARS, INTRAMUSC On: 23-May-2014 Intent ([id number])By: Luis Alberto ARCHULETA, Isabella A Fast DO, Comments: Lot #:[id number] date:03/2016Amount given:0.5mlRoute: IMSite given: left deltoidGiven by: SCOUT Merritt Isabella A ADMINISTRATION OF INFLUENZA VIRUS On: 23-May-2014 Intent VACCINE (G0008)By: Luis Alberto ARCHULETA, Isabella A Fast DO, Isabella A DEXA SCAN AXIAL SKELETON ([id number])By: On: 11-Apr-2014 Intent Luis Alberto DO, Isabella A Fast DO, Isabella A MAMMOGRAM, SCREENING, BOTH BREAST On: 11-Apr-2014 Intent ([id number])By: Luis Alberto ARCHULETA, Isabella A Fast DO, Isabella A Overnight Pulse OX ([id number])By: Luis Alberto On: 11-Apr-2014 Intent DO, Isabella A Fast DO, Isabella A Comments: 2 weeks Radiology - Lumbar SpineBy: Luis Alberto ARCHULETA, On: 11-Apr-2014 Intent Isabella A Fast DO, Isabella A Overnight Pulse OX ([id number])By: Luis Alberto On: 07-Apr-2014 Intent DO, Isabella A Fast DO, Isabella A Six Minute Walk Assessment On: 20-Mar-2014 Intent ([id number])By: Luis Alberto DO, Isabella A Fast DO, Isabella A MAMMOGRAM, SCREENING, BOTH BREASTS On: 12-Aug-2013 Intent ([id number])By: Fast DO, Isabella A Fast DO, Isabella A DXA, BONE DENSITY, AXIAL SKELETON On: 12-Aug-2013 Intent ([id number])By: Luis Alberto DO, Isabella A Fast DO, Isabella A Aerosol Treatment ([id number])By: Jalil On: 03-Jun-2013 Intent GOLD MARKER, Emelyn Eprescribed prescriptions ([id number])By: On: 03-Jun-2013 Intent [place] MARIA MAMMOGRAM, SCREENING, BOTH BREASTS On: 06-May-2013 Intent ([id number])By: Fast DO, Isabella A Fast DO, Comments: aug Isabella A DXA, BONE DENSITY, AXIAL SKELETON On: 06-May-2013 Intent ([id number])By: Fast DO, Isabella A Fast DO, Comments: due in aug Isabella A Ultrasound - ThyroidBy: Fast DO, On: 06-May-2013 Intent Isabella A Fast DO, Isabella A FLU VAC, SPLIT, >3 YEARS, INTRAMUSC On: 06-May-2013 Intent ([id number])By: Merna Hinojosa Comments: Lot #:[id number] date:mount given:0.5mlRoute: IMSite given: L dltdVIS and ABN signedGiven by: SCOUT Merritt ADMINISTRATION OF INFLUENZA VIRUS On: 06-May-2013 Intent VACCINE (G0008)By: Merna Hinojosa Spirometry (85028)By: Luis Alberto DO, On: 20-Aug-2012 Intent Isabella A Fast DO, Isabella A Comments: good effort and curve improve over previous Eprescribed prescriptions ([id number])By: On: 20-Aug-2012 Intent Fast DO, Isabella A Fast DO, Isabella A Pulse Oximetry ([id number])By: Fast DO, On: 20-Aug-2012 Intent Isabella A Fast DO, Isabella A Aerosol Treatment (09701)By: Fast On: 20-Aug-2012 Intent DO, Isabella A Fast DO, Isabella A MAMMOGRAM, SCREENING, BOTH BREASTS On: 30-May-2012 Intent ([id number])By: Fast DO, Isabella A Fast DO, Comments: jula A ADMINISTRATION OF INFLUENZA VIRUS On: 30-May-2012 Intent VACCINE (G0008)By: Merna Hinojosa Comments: Lot #[id number]-L dltd, IMDose prefilled syringegiven by:SHARYN Hester signed FLU VAC, SPLIT, >3 YEARS, INTRAMUSC On: 30-May-2012 Intent ([id number])By: Merna Hinojosa EKG ([id number])By: Fast DO, Isabella A On: 14-Mar-2012 Intent [...] DO, Isabella A Fast On: 11-Dec-2011 Intent DO Isabella A Comments: november MAMMOGRAM, SCREENING, BOTH BREASTS On: 27-Jun-2011 Intent ([id number])By: Fast DO, Isabella A Fast DO, Isabella A CT - ChestBy: Fast DO, Isabella A Fast On: 27-Jun-2011 Intent DO, Isabella A DXA, BONE DENSITY, AXIAL SKELETON On: 27-Jun-2011 Intent ([id number])By: Luis Alberto DO, Isabella A Fast DO, Isabella A FLU VAC, SPLIT, >3 YEARS, INTRAMUSC On: 05-May-2011 Intent ([id number])By: Nieves Valdez LPN Comments: Lot #[id number]/20/12Site-left deltoidgiven by: Saul Valdez LPN IMMUNIZ ADMNIN, 1 VAC, SNGL/COMBO On: 05-May-2011 Intent ([id number])By: Nieves Valdez LPN Aerosol Treatment (45566)By: Ciesa On: 15-Dec-2010 Intent GOLD MARKER, Emelyn Inhaler Demo ([id number])By: Luis Alberto ARCHULETA, On: 05-Jul-2010 Intent Isabella A Fast DO, Isabella A DXA, BONE DENSITY, AXIAL SKELETON On: 05-Jul-2010 Intent ([id number])By: Fast DO, Isabella A Fast DO, Comments: july Isabella A CT - ChestBy: Fast DO, Isabella A Fast On: 01-Mar-2010 Intent DO, Isabella A Comments: pe protocol- mid mar MAMMOGRAM, SCREENING, BOTH BREASTS On: 01-Mar-2010 Intent ([id number])By: Isabella Peacock DO A Fast DO Isabella A PFT - CompleteBy: Fast DO, Isabella A On: 01-Mar-2010 Intent Fast DO, Isabella A Nuclear Stress Test/Stress On: 07-Oct-2009 Intent SPECT/AdenosineBy: Fast DO, Isabella A Fast DO, Isabella A EKG ([id number])By: Luis Alberto ARCHULETA Isabella A On: 07-Oct-2009 Intent Fast DO, Isabella A Comments: ekg showed normal sinus rhythym, normal axis, no acute st/t wave changes Pulse Oximetry (53743)By: Luis Alberto ARCHULETA, On: 02-Sep-2009 Intent Isabella Judah Peacock DO, Isabella A Comments: 97% Venous Doppler - LowerBy: Luis Alberto ARCHULETA, On: 02-Sep-2009 Intent Isabella A Luis Alberto DO, Isabella A Comments: stat today call wet read Pulse Oximetry ([id number])By: Jalil NAGEL, On: 04-Aug-2009 Intent Emelyn Aerosol Treatment (09712)By: Jalil On: 04-Aug-2009 Intent Regine NAGEL PNEUM VAC ADLT/IMUMNOSPR, SBC/INTRM On: 11-May-2009 Intent ([id number])By: Sivan Yung Comments: Lot #[id number]-right deltoidDose0.5mlgiven by Harpal Yung LPN ADMINISTRATION OF PNEUMOCOCCAL On: 11-May-2009 Intent VACCINE (G0009)By: Sivan Yung FLU VAC, SPLIT, >3 YEARS, INTRAMUSC On: 11-May-2009 Intent ([id number])By: Sivan uYng Comments: Lot #[id number]-left deltoidDose0.5mlgiven by Harpal Yung LPN ADMINISTRATION OF INFLUENZA VIRUS On: 11-May-2009 Intent VACCINE (G0008)By: Sivan Yung Nerve ConductionBy: Luis Alberto DO, Isabella A On: 08-Jul-2008 Intent Fast DO, Isabella A Comments: right arm/ left leg EMGBy: Luis Alberto DO, Isabella A Fast DO, On: 08-Jul-2008 Intent Isabella A Comments: right arm/left leg MAMMOGRAM, SCREENING, BOTH BREASTS On: 09-Jun-2008 Intent ([id number])By: Luis Alberto DO Isabella A Fast DO, Isabella A DXA, BONE DENSITY, AXIAL SKELETON On: 09-Jun-2008 Intent ([id number])By: Fast DO Isabella A Fast DO, Comments: aug 08 Isabella A THER/PROPH/DIAG INJ, SC/IM On: 28-Jan-2008 Intent ([id number])By: Merna Hinojosa TETANUS VAC, ADSORBED, INTRAMUSC On: 28-Jan-2008 Intent ([id number])By: Merna Hinojosa Comments: Lot #:[id number] date:mount given:0.5mlRoute:IM Site given:left deltoidGiven by: SCOUT [...] Instructions Indication: Osteopenia of multiple sites Encounters Review On: 02-Jul-2018 13:26 Encounter Reason: Physical [...] bp is great- 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 Note for Physical exam: [facility]- bp is good weight down [...] of median neuropathy and ulnar neuropathyEncounter Diagnosis: [facility], Former smoker, BMI 27.0-27.9,adult, Need [...] with sleepping with bipap has followup with assistant office manager in december - saw barry and he [...] scanty. The cough occurs mostly in the state director. The symp End: 04-Aug-2009 13:28 toms have [...] or difficulty arising from chair. Note for Tammi frazier Pain: left knee arthroscopy 2004- for [...] [facility] End: 04-Jan-2007 12:12 Payers [facility]/Stacy MARVIN; judah guarantor
--- OUTSIDE RECORDS SUMMARY | 2018-10-23 09:27 | XMS RPT_ITS ---
:1945 Author Organization OHIP Care Team Providers Name Role Phone Fast DO, Isabella A Attending Unavailable Fast DO, Isabella A Referring Unavailable Fast DO, Isabella A Consulting Unavailable Fast, Isabella Attending Unavailable Fast, Isabella Referring Unavailable Fast, Isabella Primary Care Unavailable Lizeth, Michael Attending Unavailable Fast, Isabella Referring Unavailable Fast, Isabella Primary Care Unavailable Fast, Isabella Consulting Unavailable Fast, Isabella Attending Unavailable Fast, Isabella Primary Care Unavailable Fast, Isabella Attending Unavailable Fast, Isabella Primary Care Unavailable PROBLEMS PROBLEMS DATE TYPE CONDITION / CODE ATTENDING STATUS SOURCE 08/06/2018 Unknown E78.5 - Lizeth, Hinkle Active Catherine Hyperlipidemia, Community unspecified / Hospital E78.5(ICD-10) Repository 05/30/2018 Unknown Z12.31 - Fast, Isabella Active Catherine Encounter for Community screening Hospital mammogram for Repository malignant neoplasm of breast / Z12.31(ICD-10) PROCEDURES PROCEDURES No Procedure Records FoundRESULTS RESULTS LIVER Observed: 08/21/2018 Status: F Source: CATHERINE 9:01 AM [facility] H[facility] REPOSITORY [facility] Imaging Services [address] [place] [address] Liver MR#: [id number] Acct: [id number] Name: KERI RITCHIE Rep #: [id number] : 1945 F 73 From: Samuel Soriano MD PCP: Isabella Sahu DO Status: REG CLI Study: Liver Date of Exam: 08/21/18 Exam# [id number] Ordering Dr: Isabella Sahu DO STUDY: ABDOMINAL ULTRASOUND - RIGHT UPPER QUADRANT REASON FOR VISIT: Female, 73 years old. Abnormality seen in the left lobe of the liver on prior CT scan. TECHNIQUE: Ultrasound evaluation of the right upper quadrant was performed with real-time and static french-scale imaging. TECHNICAL QUALITY: Adequate. COMPARISON: None. FINDINGS: Liver: The liver measures 13.0 cm. There is normal echogenicity of the liver. The bile ducts are within normal limits. There is hepatic color flow. The direction of portal flow is hepatopetal. There is a 1.3 cm x 1.8 cm x 1.2 cm cyst in the left lobe of the liver. This corresponds to the CT findings. Gallbladder: There is a contracted gallbladder. The gallbladder wall measures 4.0 mm. There is a negative sonographic Foy's sign. There is no pericholecystic fluid. There are multiple echogenic structures within the gallbladder, consistent with multiple gallstones. Common Bile Duct (C.B.D.): The common bile duct measures 3.0 mm. Pancreas: Normal size of the head, body and tail of the pancreas. There is normal echogenicity of the pancreas. There is no demonstrated pancreatic mass or cyst. Right Kidney: Normal size of the right kidney. The right kidney measures 9.8 cm x 4.6 cm x 4.1 cm. Normal renal cortex. The right cortex measures 1.3 cm. There is no demonstrated renal mass or cyst. There is no right hydronephrosis. US/Liver IMPRESSION: Contracted stone filled gallbladder. 1.3 cm x 1.8 cm x 1.2 cm cyst in the left lobe of the liver. Electronically Signed: Samuel Soriano MD at 10:05 EST Tel [phone], Service support , CC: Isabella Sahu DO Food Counter Worker: Signed LIMITED CHEST CT Observed: 07/27/2018 Status: F Source: CATHERINE W/CCTA 12:43 PM [facility] [place] [place] REPOSITORY [facility] Imaging Services [address] [place] [address] w/CCTA MR#: [id number] Acct: [id number] Name: KERI RITCHIE Rep #: [id number] : 1945 F 73 From: aJ Mariee MD PCP: Isabella Sahu DO Status: REG CLI Study: Limited Chest CT w/CCTA Date of Exam: 07/27/18 Exam# [id number] Ordering Dr: Isabella Sahu DO STUDY: CARDIAC CALCIUM SCORING - CT [...] CT scan of 2011. Likely benign. Incompletely characterized. Ultrasound liver is recommended. Mediastinal contents normal. Osseous structures exhibit no acute process. There are prominent features of centrilobular emphysema. Right upper lobe anterior segment pulmonary nodule anterior pleural margin 5.4 mm. Stable compared to prior imaging of 2011. Unremarkable airways. No significant cardiomegaly. No pericardial effusion. Nondilated aorta. Nondilated central pulmonary arteries. The right and left [...] data calculator. Prominent emphysema. Please go to: [email or web address]/input.[email or web address] , for a description of the calculator. Electronically Signed: Ja Mariee MD at 17:17 EST Tel , Service support , CC: Isabella Sahu DO Food Counter Worker: Signed CCTA CALCIUM SCORING Observed: 07/27/2018 Status: F Source: MACHIAS 12:43 PM [facility] [place] [place] REPOSITORY [facility] Imaging Services [address] [place] [address] CCTA Calcium Scoring MR#: [id number] Acct: [id number] Name: KERI RITCHIE Rep #: [id number] : 1945 F 73 From: Ja Mariee MD PCP: Isabella Sahu DO Status: REG CLI Study: CCTA Calcium Scoring Date of Exam: 07/27/18 Exam# [id number] Ordering Dr: Isabella Sahu DO STUDY: CARDIAC CALCIUM SCORING - CT [...] prior CT scan of 2012. Likely benign. Incompletely characterized. Ultrasound liver is recommended. Mediastinal contents normal. Osseous structures exhibit no acute process. There are prominent features of centrilobular emphysema. Right upper lobe anterior segment pulmonary nodule anterior pleural margin 5.4 mm. Stable compared to prior imaging of 2012. Unremarkable airways. No significant cardiomegaly. No pericardial effusion. Nondilated aorta. Nondilated central pulmonary arteries. The right and left coronary arteries each emerge from the appropriate coronary sinus with right coronary dominance to the PDA. Coronary cusp secretions are present in the proximal LAD, proximal circumflex, mid RCA. Total Calcium Score: 180 Left main 0 LAD [address]/CCTA Calcium Scoring IMPRESSION: A Calcium Score of 180 places the patient in the approximate 65th percentile, based on the BARRIENTOS data calculator. Prominent emphysema. Please go to: [email or web address]-[email or web address]/Calcium/input.aspx , for a description of the calculator. Electronically Signed: Ja Mariee MD at 17:17 EST Tel , Service support , CC: Isabella Sahu DO Food Counter Worker: Signed SCREENING MAMM (CAD), Observed: 05/30/2018 Status: F Source: CATHERINE BILAT 8:25 AM [facility] [place] [place] REPOSITORY [facility] Imaging Services [address] [place] [address] [place] [address] SCREENING MAMM (CAD), BILAT MR#: [id number] Acct: [id number] Name: KERI RITCHIE Rep #: [id number] : 1945 F 72 From: Samuel Soriano MD PCP: Isabella Sahu DO Status: REG CLI Study: SCREENING MAMM (CAD), BILAT Date of Exam: 05/30/18 Exam# [id number] Ordering Dr: Isabella Sahu DO MAMMOGRAPHY - BILATERAL SCREENING REASON FOR EXAM: Female, 72 years old. Routine annual screening examination. PERTINENT HISTORY: Non-contributory. TECHNIQUE: Digital bilateral breast zafra (3D mammographic acquisition) in the CC and MLO projections. 2-D mediolateral oblique (MLO) and craniocaudad (CC) views of both breasts were obtained. CAD: Full Field Digital Mammography with Computer Added Detection was performed. COMPARISON: Comparison is made with prior study dated January 27, 2017 and January 18, 2016. FINDINGS: Breast Composition: There are scattered areas of fibroglandular density. There are no [...] delay biopsy of a clinically suspicious abnormality. [id number] Electronically Signed: Samuel Soriano MD at 9:52 EDT Tel [phone], Service support , CC: Isabella Sahu DO Food Counter Worker: Signed THYROID Observed: 05/30/2018 Status: F Source: CATHERINE 8:25 AM [facility] Imaging Services [address] [place] [address] Thyroid MR#: [id number] Acct: [id number] Name: KERI RITCHIE Rep #: [id number] : 1945 F 72 From: Timbo Phillips DO PCP: Isabella Sahu DO Status: REG CLI Study: Thyroid Date of Exam: 05/30/18 Exam# [id number] Ordering Dr: Isabella Sahu DO STUDY: THYROID ULTRASOUND REASON FOR EXAM: Female, 72 years old. Thyroid nodules TECHNIQUE: Ultrasound evaluation [...] regional lymph nodes are normal. US/Thyroid IMPRESSION: Stable heterogeneous thyroid with multiple complex nodules. Electronically Signed: Timbo Phillips DO at 9:27 EDT Tel , Service support , CC: Isabella Sahu DO Food Counter Worker: Signed ALLERGIES ALLERGIES No Allergies Records FoundENCOUNTERS ENCOUNTERS ADMIT/DISCHARGE ACCOUNT ADMITTING ENCOUNTER LOCATION SOURCE NUMBER CLASS 08/21/2018 [id number] Ambulatory [address] ing:OPUS Repository 08/20/2018 883 Ambulatory OHIP Practices Repository 08/06/2018 [id number] Ambulatory BMSBuilding:B Catherine 0 MS.[facility] Repository 07/27/2018 [id number] Ambulatory [place] 5 [facility] ing:CT Repository 05/30/2018 [id number] Ambulatory [place] 0 [facility] ing:OPBI Repository PAYERS PAYERS ENCOUNTER GUARANTOR PAYER SUBSCRIBER SOURCE 08/21/2018 KERI K Primary Insurance:MMO KERI K [place] [id number] HEYL MEDICAREPolicy MAIRSDOB: [place], [place] Number: [id number] [facility] [address]Rzg: [phone] [id number] Repository [phone] (HP) Date:[id number] [address]IE: 08/21/2018 Secondary NOT GIVENUNK Catherine Insurance:SELF PAY [facility] Number: Effective Repository Date:2018-08-20 08/20/2018 KERI K Primary KERI K OHIP Practices MAIRSDOB: Insurance:Medical MAIRSDOB: Repository [id number] [facility] [id number] [facility] Number: 5 [place] [address]Fbg: [id number] [place] Date:1584-25-94Bwde 86[address]Bpx: [phone]) (HP)Tel: [phone]) Name:GOAT HERDER [phone] (HP) [phone] () [address], [place] [id number]: 08/20/2018 Secondary KERI K OHIP Practices Insurance:Hellen MAIRSDOB: Repository /BSPolicy Number: [id number] 5 [place] Date:2005-05-19 - [place] [id number] [address]Ykm: ([phone]) Name:[phone] (HP) [address]Hbsqwfg, [place] [id number]: 08/20/2018 Tertiary Jhony E MairsDOB: OHIP Practices Insurance:[place] [id number] Repository BC/BSPolicy Number: 5 Heyl [id number] Catherine [place] Date:2006-06-05Tel: [id number] ~( Name:[address] (HP) [address] [place] [address] [id number]: 08/20/2018 Tertiary Jhony E MairsDOB: OHIP Practices Insurance:Medicare [id number] [facility]ository [facility] UnitPolicy 5 [place] Number: BabakJamesonmarilee [place] [id number] [address]Jim: Date: - ~(0919-64-92Czjf 30 (HP) Name:[facility] [address]XyylixpvSCOTLAND, [place] [address]KG: 08/20/2018 Tertiary KERI K OHIP Practices Insurance:MedicarePol MAIRSDOB: Repository icy Number: [id number] 5 He[place] Date:2008-05-31 - Catherine [place] [id number] [address]Qrp: ([phone]) Name:GOAT HERDER [phone] (HP) [address]JnvuspesSC[place]LAND, [place] [address]NC: 08/20/2018 Tertiary KERI K OHIP Practices Insurance:Principal MAIRSDOB: Repository Zoyi Ins. Co.Policy [id number] Number: 5 Heyl [id number] [facility] [place] Date:2008-06-3030962Brg: [phone] [id number] [phone] (HP) Name:[address] [address] [employer], [place] [address]OA: 08/20/2018 Tertiary KERI K OHIP Practices Insurance:[facility]: Repository the World/Assured [id number] Life AssocPolicy 5 [place] Number: [id number] [facility] [place] [address]Effective Date: [address]Raq: [phone] [id number] [phone] (HP) Name:[facility] JAYLENE Alvarez [id number]: 08/20/2018 Tertiary [facility] [place] Practices Insurance:Humana MAIRSDOB: Repository Choice PPOPolicy [id number] Number: 5 [place] [id number] RdWooben, [place] Date:2016-07-31Tel: [phone] (HP) Name:[facility] Sarah [address] [place] [address]ZG: 08/06/2018 KERI K Primary Insurance:[facility] KERI K Catherine [id number] HEYL PACKAGE PLANPolicy MAIRSDOB: [facility] [place] Number: [id number] Hospital [address]Ohq: [phone] [id number] Repository [phone] (HP) Date:2018-07-03 08/06/2018 Secondary NOT GIVENUNK [place] Insurance:SELF PAY [facility] Number: Effective Repository Date:2018-08-06 07/27/2018 KERI K Primary Insurance:[facility] K Catherine [id number] HEYL PACKAGE PLANPolicy MAIRSDOB: [facility] [place], [place] Number: [id number] Hospital [address]Xjs: [phone] [id number] Repository [phone] (HP) Date:2018-07-03 07/27/2018 Secondary NOT GIVENUNK Catherine Insurance:SELF PAY [facility] Number: Effective Repository Date:2018-07-03 05/30/2018 KERI K Primary Insurance:[facility] K [place] [id number] HEYL MEDICAREPolicy MAIRSDOB: [facility] [place] Number: [id number] Hospital [address]Qwk: [phone] Repository [phone] (HP) Date:2570-14-70CZ [address], [place] [address]MM: 05/30/2018 Secondary NOT GIVENUNK Catherine Insurance:SELF PAY [facility] Number: Effective Repository Date:2017-11-24
== END ==
PROVIDERS: Family Provider Internal Medicine; PCP Internal Medicine; Visit Provider Internal Medicine
DX: K76.89 Other specified diseases of liver (principal); K80.80 Other cholelithiasis without obstruction
CPT/HCPCS: 76705

== ENCOUNTER → 2018-08-27 06:21 | Outpatient (CLI) | payer MEDICARE, SELFPAY ==
[2018-07-27 13:15] VITALS: BMI 24.1
--- NOTE | 2018-08-27 10:00 | STRESSREP ---
Stress Test Report Exercise myocardial perfusion stress test. 73-year-old man with a history of chest pain. Medications: Simvastatin spiring him. Stress protocol: Resting EKG demonstrates normal sinus rhythm with a rate of 77 bpm resting blood pressure 144/90 mmHg. The patient exercised according to regular Mendoza protocol for total duration of 7 minutes and 46 seconds. The maximum heart rate attained was 164 bpm which was 113% of maximum predicted heart rate the maximum workload was 9.7 metabolic equivalents. At rest there were no ST or T wave changes noted suggest ischemia at peak exercise upsloping ST changes were noted up to 1.3 mm we did not meet the criteria for ischemia. The resting blood pressure 144/90 with a peak blood pressure 168/78 mmHg. Ventricular triplets were noted. The patient did experience some shortness of breath with exertion. Myocardial perfusion protocol. 10.6 mCi of technetium 99m sestamibi was injected at rest. The patient exercised for 7 minutes and 46 seconds at peak exercise 30.7 mCi of technetium 99m sestamibi was injected stress images were obtained stress and rest images were reconstructed and compared in the short axis vertical long and horizontal long axis. Gated images were also obtained per protocol. Perfusion SPECT analysis: Review of the stress images demonstrate normal uptake of tracer noted in all areas of the myocardium. The resting images demonstrate some diaphragmatic attenuation. No obvious areas of reversibility however are noted to suggest ischemia. Gated SPECT analysis: The gated ejection fraction is noted to be 64%. Conclusion: Normal exercise myocardial perfusion stress test with no obvious EKG or nuclear images for ischemia. Mild functional aerobic impairment.
== END ==
PROVIDERS: Family Provider Internal Medicine; PCP Internal Medicine; Referring Provider Internal Medicine; Visit Provider Internal Medicine
DX: R07.9 Chest pain, unspecified (principal)
CPT/HCPCS: 78452; 93017; A9500; A4216

== ENCOUNTER → 2018-10-10 12:30 | Outpatient (CLI) | payer MEDICARE, SELFPAY ==
[2018-07-27 13:15] VITALS: BMI 24.1
--- NOTE | 2018-10-10 14:40 | NEURO ---
NCS and/or EMG Patient Report Ordering Doctor: Isabella Sahu DATE OF SERVICE: 10/10/18 Sonya Marvin is a 73-year-old female presents for electrodiagnostic testing of the lower limbs. She reports pain and numbness in the lower legs bilaterally. Electrodiagnostic findings: Peroneal motor nerve demonstrates normal distal latency, amplitude and conduction velocity bilaterally. Normal tibial motor response bilaterally. Normal peroneal and tibial F waves are noted. Prolonged sural latency is noted bilaterally. Mildly prolonged left superficial peroneal latency. Prolonged left H reflex. Needle EMG testing reveals no evidence of denervation in any muscles tested. Motor unit action potentials are of normal amplitude and duration. Elective diagnostic impression: This is an abnormal study in the lower limbs. 1. 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 2. No electrodiagnostic evidence is noted for lumbosacral radiculopathy. Next If there are any further questions, please do not hesitate to contact me.
--- NOTE | 2018-10-10 14:44 | NEURO_ITS ---
NCS and/or EMG Patient Report Ordering Doctor: Isabella Sahu DATE OF SERVICE: 10/10/18 Sonya Marvin is a 73-year-old female presents for electrodiagnostic testing of the lower limbs. She reports pain and numbness in the lower legs bilaterally. Electrodiagnostic findings: Peroneal motor nerve demonstrates normal distal lat ency, amplitude and conduction velocity bilaterally. Normal tibial motor response bilaterally. Normal peroneal and tibial F waves are noted. Prolonged sural latency is noted bilaterally. Mildly prolonged left superficial peroneal latency. Prolonged left H reflex. Needle EMG testing reveals no evidence of denervation in any muscles tested. Motor unit action potentials are of normal amplitude and duration. Elective diagnostic impression: This is an abnormal study in the lower limbs. 1. 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 2. No electrodiagnostic evidence is noted for lumbosacral radiculopathy. Next If there are any further questions, please do not hesitate to contact me.
== END ==
PROVIDERS: Family Provider Internal Medicine; PCP Internal Medicine; Referring Provider Internal Medicine; Visit Provider Internal Medicine
DX: R20.2 Paresthesia of skin (principal)
CPT/HCPCS: 95886; 95912

== ENCOUNTER → 2019-03-15 09:48 | Outpatient (CLI) | payer MEDICARE, SELFPAY ==
[2018-07-27 13:15] VITALS: BMI 24.1
--- NOTE | 2019-03-15 09:51 | RAD_ITS ---
STUDY: X-RAY - PELVIS AND LEFT HIP REASON FOR EXAM: Female, 73 years old. Hip pain. TECHNIQUE: 3 views of the pelvis and hip. COMPARISON: None. FINDINGS: There is a non-specific bowel gas pattern. Normal visualized soft tissue structures. There are degenerative changes of the lower lumbar spine. There are degenerative changes of the sacroiliac joints. Normal bilateral superior and inferior pubic rami. There are degenerative changes of the pubic symphysis with articular narrowing and sclerosis. Normal bilateral ischial tuberosities. There are degenerative changes of the hips. RAD/HIP, UNI W/ Pelvis 2-3 Views IMPRESSION: Degenerative changes. Electronically Signed: Shelly White MD at 16:51 EDT Tel , Service support ,
== END ==
PROVIDERS: Family Provider Internal Medicine; PCP Internal Medicine; Referring Provider Internal Medicine; Visit Provider Internal Medicine
DX: M16.12 Unilateral primary osteoarthritis, left hip (principal)
CPT/HCPCS: 73502

== ENCOUNTER 2019-04-18 15:23 | Emergency (ER) | payer MEDICARE, SELFPAY ==
[2018-07-27 13:15] VITALS: BMI 24.1
[2019-04-18 15:26] VITALS: BP 158/84; PULSE 105; RESP 14; TEMP 36.9; O2SAT 97; BMI 25.2
[2019-04-18 17:45] VITALS: BP 150/76; PULSE 98; RESP 16; O2SAT 98
--- NOTE | 2019-04-18 17:45 | ED.DCSUM_ITS ---
- ER Visit Summary Date of Service: 04/18/19 Chief Complaint: Left elbow laceration History of Present Illness: The patient is a 73 F who has a laceration to the left elbow. She was here in the hospital when the elevator door opened and she fell onto the ground. She hit her left elbow. Denies any head trauma or LOC. She has minimal pain to the left elbow. She sustained a laceration as well as a skin tear of the elbow. Last tetanus unknown. Physical Examination: Vital signs reviewed. Left elbow exam reveals full range of motion with no pain. She has no point tenderness. There is a 3 cm laceration to the medial left elbow. There is also a small skin tear to the lateral portion of the left elbow. Test Results: None performed Emergency Department Course and Treatment: Patient had a laceration repair. Ar ea was cleansed with chlorhexidine. 2 cc of lidocaine was used to anesthetize the area. 5, 4?0 simple nylon sutures were placed with good wound approximation. She will have these out in 7 to 10 days. Her tetanus was also updated as well. Treatment Plan: [] Disposition: Discharge Impression: Left elbow laceration, 3 cm Left elbow skin tear Laceration repaired by ED physician This note was generated with Aprimo dictation software. It may contain incorrect words, spelling, and punctuation that were not noted in review of the chart prior to signing ED Disposition - Plan for ED Patient: Disposition: Home or Assisted Living Instructions: LACERATION, All Referrals: Luis Alberto,Isabella, DO [Primary Care Provider] -
--- NOTE | 2019-04-18 17:46 | ED.DEP ---
ED Disposition - Plan for ED Patient: Disposition: Home or Assisted Living Instructions: LACERATION, All Referrals: Isabella Sahu DO [Primary Care Provider] -
[2019-04-18] MEDS: Diphth,Pertuss(Acell),Tet Vac 0.5 ML Vial IM (17:48)
== END 2019-04-18 18:07 | disposition home or self-care (01) ==
PROVIDERS: Emergency Provider Emergency Medicine; Family Provider Internal Medicine; PCP Internal Medicine
DX: S51.012A Laceration without foreign body of left elbow, initial encounter (principal); W18.39XA Other fall on same level, initial encounter; Y93.89 Activity, other specified; Y92.238 Other place in hospital as the place of occurrence of the external cause
CPT/HCPCS: 12002; 90471; 90715; 99283

== ENCOUNTER → 2019-05-31 13:36 | Outpatient (CLI) | payer MEDICARE, SELFPAY ==
[2018-07-27 13:15] VITALS: BMI 24.1
--- NOTE | 2019-05-31 13:38 | BI_ITS ---
MAMMOGRAPHY - BILATERAL SCREENING REASON FOR EXAM: Female, 73 years old. Routine annual screening examination. PERTINENT HISTORY: Non-contributory. TECHNIQUE: Digital bilateral breast omid (3D mammographic acquisition) in the CC and MLO projections. 2-D mediolateral oblique (MLO) and craniocaudad (CC) views of both breasts were obtained. CAD: Full Field Digital Mammography with Computer Added Detection was performed. COMPARISON: Comparison is made with prior study May 30, 2018 and January 27, 2017. FINDINGS: Breast Composition: There are scattered areas of fibroglandular density. There are no dominant masses or suspicious calcifications. No other significant abnormalities are identified. There has been no significant change since the prior study. BI/SCREEN MAMM (CAD) W/OMID BILAT IMPRESSION: Stable bilateral screening mammogram. Yearly follow-up mammogram recommended. (A) ASSESSMENT CATEGORY: BIRADS Category 1: Negative. A letter regarding these results will be sent to the patient by the facility within 30 days. Approximately 10% of breast cancers are not detected by mammography. A normal mammogram should not delay biopsy of a clinically suspicious abnormality. [id number] Electronically Signed: Samuel Soriano, at 14:19 EDT , Service support ,
--- NOTE | 2019-05-31 13:50 | US_ITS ---
STUDY: THYROID ULTRASOUND REASON FOR EXAM: Female, 73 years old. Thyroid nodules TECHNIQUE: Ultrasound evaluation of the thyroid was performed with real-time and static french-scale imaging. COMPARISON: 05/30/2018 FINDINGS: RIGHT LOBE: The right lobe of the thyroid gland measures 4.7 x 1.2 x 1.2 cm. There is a homogeneous echotexture. Multiple small solid and cystic nodules of the right thyroid lobe are redemonstrated with the largest measuring up to 1.2 x 0.8 x 0.6 cm, not substantially changed. LEFT LOBE: The left lobe of the thyroid gland measures 5.6 x 2.4 x 2.1 cm. There is a homogeneous echotexture. Multiple small solid and cystic nodules of the left thyroid lobe are identified with the largest measuring up to 2.6 cm, not substantially changed since the prior study. ISTHMUS: The isthmus measures 3 mm. The regional lymph nodes are normal. US/Thyroid IMPRESSION: 1. Stable thyroid nodules. No new or enlarging thyroid nodule. Electronically Signed: Lake James MD (Brooks) at 16:44 EST , Service support ,
== END ==
PROVIDERS: Family Provider Internal Medicine; PCP Internal Medicine; Referring Provider Internal Medicine; Visit Provider Internal Medicine
DX: Z12.31 Encounter for screening mammogram for malignant neoplasm of breast (principal); E04.1 Nontoxic single thyroid nodule
CPT/HCPCS: 76536; 77063; 77067

== ENCOUNTER → 2020-04-08 07:58 | Outpatient (CLI) | payer MEDICARE, SELFPAY ==
[2020-03-30 08:27] VITALS: BMI 25.2
--- NOTE | 2020-04-08 08:01 | ECHOD_ITS ---
Reason For Study: HTN Procedure This was a 2D Doppler, Color Flow transthoracic echocardiogram. The exam was of adequate technical quality. Exam performed in department. Left Ventricle Normal LV size. Left ventricular systolic function is normal. The estimated ejection fraction is 65 %. No regional wall motion abnormalities noted. Right Ventricle Normal RV size. Normal systolic function. Atria The left atrium is mildly enlarged. Normal right atrium. No doppler evidence for ASD. Mitral Valve There is mild to moderate mitral annular calcification. Extension of the mitral annular calcification onto the base of the posterior mitral valve leaflet. Trivial mitral valve insufficiency. Tricuspid Valve Normal tricuspid valve. Mild tricuspid valve insufficiency. Right ventricular systolic pressure estimated to be 34 mmHg. Aortic Valve Trisinus/trileaflet aortic valve. Normal aortic valve. Trivial aortic valve insufficiency. Pulmonic Valve The pulmonic valve is not well visualized. Trivial pulmonic valve insufficiency. Great Vessels Normal sized aortic root. Pericardium/Pleural No pericardial effusion. MMode/2D Measurements & Calculations LVIDd: 3.6 cm IVSd: 0.99 cm Ao root diam: 3.0 cm LVIDs: 2.3 cm LVPWd: 0.99 cm RVDd: 3.5 cm FS: 37.4 % LAV(MOD-bp): 56.8 ml LVAd ap4: 24.7 cm2 SV(MOD-sp4): 45.1 ml LAV(MOD-bp) Indexed: 36.3 ml/m2 EDV(MOD-sp4): 66.5 ml LAV(MOD-sp2): 59.3 ml EDV(sp4-el): 69.2 ml LAV(MOD-sp4): 45.5 ml LVAs ap4: 13.0 cm2 ESV(MOD-sp4): 21.4 ml ESV(sp4-el): 21.9 ml EF(MOD-sp4): 67.9 % EF(sp4-el): 68.4 % SV(sp4-el): 47.3 ml LA A4 area: 16.5 cm2 LA dimension(2D): 4.1 cm RA A4 area: 15.1 cm2 Doppler Measurements & Calculations MV E max mayo: 87.6 cm/sec Lat Peak E' Mayo: 8.0 cm/sec Med Peak E' Mayo: 10.5 cm/sec MV A max mayo: 68.4 cm/sec E/E' lat: 10.9 E/E' med: 8.3 MV E/A: 1.3 Ao V2 max: 125.5 cm/sec LV V1 max: 83.0 cm/sec PA V2 max: 83.5 cm/sec Ao max P.3 mmHg LV V1 max P.8 mmHg TR max mayo: 278.0 cm/sec TR max P.0 mmHg Interpretation Summary Left ventricular systolic function is normal. The estimated ejection fraction is 65 %. The left atrium is mildly enlarged. There is mild to moderate mitral annular calcification. Extension of the mitral annular calcification onto the base of the posterior mitral valve leaflet. Trivial mitral valve insufficiency. Mild tricuspid valve insufficiency. Trivial aortic valve insufficiency. Trivial pulmonic valve insufficiency. Right ventricular systolic pressure estimated to be 34 mmHg. Transmitral diastolic flow velocities suggest diastolic dysfunction (pseudonormal pattern). Ordering Physician: Isabella Sahu Referring Physician: Isabella Sahu Performed By: Amaya Walton RDCS
--- NOTE | 2020-04-08 08:02 | RDU_ITS ---
Reason For Study: HTN Right Renal Artery Left Renal Artery Right renal artery ostium 89/20 Left renal artery ostium 72/19 RSV/EDV. PSV/EDV. Right renal artery proximal 70/17 Left renal artery proximal PSV/EDV PSV/EDV. 62/14 . Right renal artery mid 85/21 Left renal artery mid 76/22 PSV/EDV. PSV/EDV . Right renal artery distal 99/28 Left renal artery distal 117/30 PSV/EDV. PSV/EDV. Right RAR 1.22. Left RAR 1.44. Right Renal Parenchyma Left Renal Parenchyma Upper Pole Medula 29/8 PSV/EDV. Left upper pole medulla 31/8 Right upper pole medulla EDR 0.28 . PSV/EDV . Right upper pole medulla R.I. Left upper pole medulla EDR 0.26 . 0.73 . Left upper pole medulla R.I. 0.74 . Upper Cresencio Cortx 35/10 PSV/EDV. UP Cortex 14/6 PSV/EDV. Right upper pole cortex EDR 0.29 . Left upper pole cortex EDR 0.43 . Right upper pole cortex R.I. 0.71 . Left upper pole cortex R.I. 0.61 . Right lower Pole medulla 30/7 Left lower Pole medulla 18/7 PSV/EDV . PSV/EDV . Right lower pole medulla EDR 0.23 . Left lower pole medulla EDR 0.39 . Right lower pole medulla R.I. Left lower pole medulla R.I. 0.64 . 0.77 . Lower Pole Cortx 20/6 PSV/EDV. Lower Pole Cortex 12/4 PSV/EDV. Left lower pole cortex EDR 0.30 . Right lower pole cortex EDR 0.33 . Left lower pole cortex R.I. 0.70 . Right lower pole cortex R.I. 0.66 . Left Renal Hilar Right Renal Hilar LT Hilar avg 83/22 PSV/EDV . Right Hilar avg 100/22 PSV/EDV. Left hilar acceleration time 60 Right hilar acceleration time 90 m/sec. m/sec. Left Renal Dimensions Right Renal Dimensions Left kidney size 9.24 cm . Right kidney size 10.33 cm . Left cortical dimension 1.01 cm . Right cortical dimension 0.95 cm . Aorta Proximal abdominal aorta 1.89cm x 1.96 cm . Proximal abdominal aorta peak systolic velocity is 81 cm/sec . Distal abdominal aorta 1.62cm x 1.53 cm . Distal abdominal aorta peak systolic velocity is 87 cm/sec . Interpretation Summary Less than 60% stenosis bilateral renal arteries. Right renal length 10.33 cm Left renal length 9.24 cm Proximal abdominal aorta 1.89 x 1.96 cm with a normal velocity of 81 cm/s flow Ordering Physician: Isabella Sahu Referring Physician: Isabella Sahu Performed By: Yolis Ascencio, KATIE, RVT
== END ==
PROVIDERS: PCP Internal Medicine; Referring Provider Internal Medicine; Visit Provider Internal Medicine
DX: I25.10 Atherosclerotic heart disease of native coronary artery without angina pectoris (principal); I10 Essential (primary) hypertension
CPT/HCPCS: 93306; 93975

== ENCOUNTER 2020-04-09 05:52 | Day surgery (SDC) | payer MEDICARE, SELFPAY ==
[2020-03-30 08:27] VITALS: BMI 25.2
--- NOTE | 2020-04-03 09:36 | EKG12_ITS ---
Test Reason : PREOP Blood Pressure : / mmHG Vent. Rate : 079 BPM Atrial Rate : 079 BPM P-R Int : 146 ms QRS Dur : 074 ms QT Int : 410 ms P-R-T Axes : 077 009 008 degrees QTc Int : 470 ms Normal sinus rhythm Normal ECG Confirmed by JIM BRADLEY, KAILYN ([id number]), multimedia editor CHELY LUO ([id number]) on 04/07/2020 8:08:43 AM Referred By: Danilo Crenshaw Confirmed By:SHANTA FERNANDEZ MD
[2020-04-03 10:57] LABS: Anion Gap 5 (5-15); BUN 14 mg/dL (7-18); BUN/Creat Ratio 15.4 RATIO (10-20); Chloride 101 mmol/L (98-107); Creatinine, Serum 0.91 mg/dL (0.55-1.02); EST Glomerular Filtration Rate 64 mL/min (>60); Est Glom Filt Rate - Afr Amer 77 mL/min (>60); Glucose 86 mg/dL (74-106); Potassium 3.6 mmol/L (3.5-5.1); Sodium Level 137 mmol/L (136-145)
[2020-04-09] VITALS (7 sets, daily range): BP systolic 121–146; BP diastolic 63–83; PULSE 65–84; RESP 16; TEMP 36.3–36.8; O2SAT 93–100; BMI 25.7
[2020-04-09] MEDS: Lactated Ringers 1,000 ML 100 ML IV ×3 (06:35→10:32)
--- NOTE | 2020-04-09 07:10 | PCM.OPRPT ---
Problem List (1) Cholelithiasis Status: Acute Qualifiers: Cholelithiasis location: gallbladder Cholecystitis presence: without cholecystitis Biliary obstruction: without biliary obstruction Qualified Code(s): K80.20 - Calculus of gallbladder without cholecystitis without obstruction (2) RUQ pain Status: Acute Report of Operation Date of Procedure: 04/09/20 Pre-Operative Diagnosis: 1. Calculus of the gallbladder. 2. Right upper quadrant abdominal pain Post-Operative Diagnosis: Same Surgery/Procedure Performed:: Robotic assisted laparoscopic cholecystectomy Anesthesiologist: Fahad Bray Specimen's removed: Gallbladder Estimated Blood Loss (mL): < 25 cc Description of Procedure: Patient was brought into the operating room. Placed in the supine position. Under excellent general endotracheal ovation the bed was placed in the head up and rotated to the left position and the abdomen was sterilely prepped and draped in usual fashion. Local was injected supraumbilically dissection was carried down to the fascia. The fascia was grasped with a [place]. Varies needle was placed inside the abdomen. The abdomen was insufflated to 15 torr. A 10/12 trocar was placed without difficulty. It was flank by 2 #8 trochars placed under direct visualization and then finally a lateral right sided #5 trocar. All these were placed under direct visualization without injury to underlying structures. The robot was then docked the fundus of the gallbladder was grasped and retracted in a cephalad direction. I went to the robot used a pro-grasper my left hand cauteries in the right hand I removed all the adhesions from the gallbladder which there was a significant amount. I gradually increased placement of the gallbladder in a cephalad direction exposing the cystic duct and cystic artery. I dissected both of these free and then dissected posteriorly towards the liver so I had my triangle completely dissected free once this was done I placed 2 hemo-lock clips proximally and distally on the artery and ligated the artery and then I placed 2 hemoclips proximally distally on the duct and ligated the duct. There was a small stone in between the 2 clips I reviewed move the stones and placed them on top of the duodenum but they were very friable and I crushed them easily. I clean my instrument and then with the use of electrocautery I deliver the gallbladder from the gallbladder bed. I had excellent pneumostasis. I placed the specimen in a specimen bag and delivered through the umbilical port without difficulty I reinflated the abdomen irrigated the right upper quadrant and removing the debris from the stones with my irrigation. No large stones were left in the abdomen. Once again I had excellent hemostasis. I remove the trochars under direct visualization good in the stasis was noted. Fascia the umbilical port was closed with a [id number] stitch of 0 Vicryl. Skin incisions were closed with subcuticular stitches of 4-0 Monocryl. Steri-Strips were applied sterile dressings were applied and the patient tolerated the procedure well. - Admit VTE Documentation VTE Present on Admission: No VTE Mechan Device Prophylaxis: SCD's VTE Pharm Prophylaxis ordered?: No Reason prophylaxis not ordered:: Treatment Not Indicated [id number]: [id number] Laparoscopic cholecystectomy
--- NOTE | 2020-04-09 07:11 | DCINST_ITS ---
Discharge Diet: Light diet - advance as tolerated Discharge Activity: May Not Drive - for 2-3 days or while taking narcotic pain medications., - - Do not drive, work heavy equipment or sign legal documents for 24 hours. May shower in (days): 1 - with the bandage in place. Additional Activity Instructions:: Pain medication may cause nausea. You should typically eat light foods as you take your pain medications. Pain medication may also cause constipation. If this is a problem for you, please discuss with your doctor. Call your doctor if your incision/area has: Continuous Slow Oozing, Sudden Increased Bleeding, Increased Pain/ Swelling, Increased Redness, Foul Smelling Discharge Call your doctor if you observe: Fever of 101 or Higher Suture Line Care: Avoid Pulling/Pushing, Avoid Pinching/Bending Additional Dressing/Incision Instructions:: Leave operative bandaids on for 2 days. When you remove dressing, leave Steri-Strips on until your follow-up appointment, or until the Steri-Strips fall off on their own. Allergies/Adverse Reactions: Allergies morphine Allergy (Verified 04/02/20 09:13) Nausea/Vom/Diarrhea Medications to take at Discharge hydrochlorothiazide 12.5 mg capsule 12.5 mg PO DAILY 03/30/20 simvastatin 10 mg tablet 10 mg PO QODAY 03/30/20 tiotropium bromide 1.25 mcg/actuation mist for inhalation 2 puff INHALATION DAILY PRN 03/30/20 Primary Care Physician: Isabella Sahu DO [Primary Care Provider] - Test Results: Test results from this visit will be discussed in further detail at your follow- up appointment, if applicable. Please Follow Up With: Danilo Crenshaw MD - Please call [phone] to schedule an appointment. When: 7 days after your surgery.
--- NOTE | 2020-04-09 07:30 | GALL_PTH ---
PATIENT: KERI RITCHIE LOC: [facility] [place] U#:[id number] AGE/SX: 74/F ROOM: RE04/09/[address]: Dr. Danilo Crenshaw MD : 1945 BED: DIS: 04/09/2020 SPEC #: [id number] RECD: 04/09/20 09:17 STATUS: RAIMUNDO ALINA #: [id number] MARIZA: 04/09/20 07:[address]: Danilo Crenshaw DEPT: SURGICAL PATHOLOGY RECD BY: Kimberly Schilling ENTERED: 04/09/20 13:35 SP TYPE: ANAYA BINGHAM DR: Dr. Isabella Sahu, DO Tissues: Gallbladder, NOS Procedures: Surgery Specimen Level III HEADER OPERATION: Robotic cholecystectomy PRE-OP DIAGNOSIS: Calculus of gallbladder with chronic cholecystitis TISSUE SUBMITTED: Gallbladder MICROSCOPIC DIAGNOSIS Gallbladder, cholecystectomy: Chronic cholecystitis and cholelithiasis. AM:cm 04/10/20 MICROSCOPIC DESCRIPTION Slides are reviewed. GROSS DESCRIPTION Received is one container labeled with the patient's name and designated gallbladder. The specimen consists of a gallbladder measuring 10.5 cm in length and up to 3.5 cm in diameter. The external surface is pink-travis, smooth and glistening for the most part. Focally it is granular, hemorrhagic and contains cautery artifact. The gallbladder contains green-yellow mucoid bile and multiple greenish-yellow to orange multifaceted stones measuring in aggregate 5 x 5 x 1.5 cm and 0.2 to 1.5 cm in greatest dimension. The mucosa is bile-stained and without any mass lesions. The gallbladder wall measures up to 0.1 cm in thickness. [employer] sections from the gallbladder and the cystic duct are submitted in one cassette. / SJ:rg 04/09/20 TC:3 [facility]: [id number]
[2020-04-09] MEDS: Cefazolin 2 GM in 0.9% Normal Saline 100 ML IV (07:36)
[2020-04-09] MEDS: Bupivacaine Mpf 0.5% 30 ML VIAL (08:44)
--- NOTE | 2020-04-19 01:02 | HP_ITS ---
Intake Vital Signs 03/30/20 BMI 25.2 03/30/20 Height 5 ft 1.6 in 03/30/20 Weight: 135 lb 03/30/20 BMI 25.0 03/30/20 BP 135/76 H 03/30/20 Blood Pressure Location Lt brachial 03/30/20 Position Sitting 03/30/20 Respiration 18 03/30/20 Pulse 80 03/30/20 Pulse Source Monitor 03/30/20 Temp 97.3 F L 03/30/20 Temp Source Temporal 03/30/20 Pulse Oximetry (%) 100 03/30/20 Oxygen Delivery Method room air Intake Visit Reasons: RIGHT UPPER QUADRANT PAIN Chief Complaint: RUQ pain/cholelithiasis Is patient in pain?: No Allergies morphine Allergy (Verified 03/30/20 08:25) Nausea/Vom/Diarrhea Medications hydrochlorothiazide 12.5 mg capsule 12.5 mg PO DAILY 03/30/20 [History Confirmed 03/30/20] simvastatin 10 mg tablet 10 mg PO QHS 03/30/20 [History Confirmed 03/30/20] tiotropium bromide 1.25 mcg/actuation mist for inhalation 2 puff INHALATION DAILY PRN 03/30/20 [History Confirmed 03/30/20] PFS Medical History Anxiety and depression (Acute) Arthritis (Acute) HTN (hypertension) (Chronic) CAD (coronary artery disease) (Acute) Pulmonary embolism (Acute) COPD (chronic obstructive pulmonary disease) (Chronic) Cholelithiasis (Acute) RUQ pain (Acute) Surgical History History of tonsillectomy and adenoidectomy (Acute) history bilateral CTR (Acute) History of tubal ligation (Acute) history left leg vein stripping (Acute) History of total left knee replacement (Acute) Social History (Updated 04/01/20 @ 13:[address] Danilo Crenshaw MD) Smoking Status: Never smoker alcohol intake: current alcohol intake frequency: a few times a month substance use type: does not use HPI HPI Surgical H&P: Yes HPI: KERI RITCHIE, is a 74 F who presents to the office today for Evaluation for abdominal pain. Patient has been experiencing right upper quadrant abdominal pain particularly after fatty meals. And she has been staying sore for several days after such times it happened. She has had no change in her stool she has had some nausea and positive anorexia. She has pain with just about every meal she has been using some Toradol to help with this. She had a previous gallbladder ultrasound which was done in July 2018. It showed a contracted stone filled gallbladder. She has not been having lizet colored stools she has not been having Coca-Cola colored urine. ROS General General: No weight change, appetite, fatigue, colon cancer, breast cancer or weakness HEENT HEENT: No difficulty swallowing, eye injury, eye surgery, swollen glands or hoarseness Endo Endocrine: No thyroid disease, diabetes mellitus, thyroid cancer, Hair loss, heat intolerance or cold intolerance Skin Skin: No rash or changing moles Breast Breast: No left breast lump, right breast lump, nipple discharge, breast pain, abnormal mammogram, abnormal US or breast enlargement Musc Musculoskeletal: Yes arthritis; no back problems, rheumatoid arthritis, gout or joint pain Cardio Cardiovascular: Yes heart disease and high blood pressure; no murmur, pacemaker, atrial fibrillation, heart attack, heart stent, palpitations, shortness of breat with exertion or chest pain Psych Psychiatric: Yes depression and anxiety; no hearing voices Resp Respiratory: No shortness of breath, Yes sleep apnea, No cough, Yes COPD, No asthma, Yes emphysema, No wheezing Gastro Gastrointestinal: Yes abdominal pain, Yes nausea or vomiting, No diarrhea, No constipation, No blood in stool, Yes acid reflux, No hemorrhoids, No ulcers, Yes gallbladder problem, No black,tarry stools [place] Hematologic: No blood thinners, No blood disorders, No bleeding, No anemia, No blood clots Neuro Neurologic: No system reviewed and no additional complaints, except as docu, No as per HPI, No abnormal walking, No abnormal hearing, No abnormal movements, No abnormal speech, No behavioral changes, No burning sensations, No confusion, No seizure-like activity, No unsteadiness, No dizziness, No localized weakness, No frequent falls, No headache(s), No lack of coordination, No loss of vision, No memory loss, No numbness, No other visual disturbances, No radiating pain, No restless legs, No sensory deficit, No fainting, No tingling, No tremor(s), No weakness, No other Exam Const General: no acute distress, well developed, well hydrated Orientation: oriented to person, oriented to place, oriented to time [facility] Head: normocephalic, atraumatic Ears: external ears normal Mouth: moist mucous membranes Eyes Sclera: sclerae normal Pupils: normal by confrontation Neck Neck: no lymphadenopathy noted Neck mass: No Thyroid: thyroid normal, symmetrical Chest Chest palpation & inspection: normal inspection of the chest Breast Palpation: No nipple discharge Resp Effort & Inspection: normal respiratory effort Auscultation: clear to auscultation bilaterally Percussion: percussion normal Cardio Rate: regular rate Rhythm: regular rhythm Heart Sounds: no murmurs GI Palpation: soft, no hepatosplenomegaly, no masses, tender Auscultation: normal bowel sounds Rectal Exam: other Other: Rectal exam deferred. Extrem General: normal to inspection, no clubbing, cyanosis or edema Assessment & Plan Problems 1. Calculus of gallbladder with chronic cholecystitis without obstruction K80.10 2. Abdominal pain, RUQ R10.11 Plan My plan is to perform a laparoscopic cholecystectomy with intraoperative cholangiogram. The planned surgical procedure was discussed extensively with the patient. The risks, benefits, anticipated outcomes and possible complication were mentioned. My staff has also explained the procedure in understandable terms and the patient was given the option to take printed material concerning the planned procedure. The patient had the opportunity to ask questions concerning the planned procedure. The patient freely consents to the planned procedure. Coding Level of Care Code Off vis,new,level 3 Diagnoses Calculus of gallbladder with chronic cholecystitis without obstruction K80.10 ??Cholelithiasis location: gallbladder ??Cholecystitis acuity: chronic Abdominal pain, RUQ R10.11 COVID (Procedure Consent) Procedure Criteria Procedure Criteria: Yes Elective The surgeon/proceduralist and patient have discussed in detail the risk of exposure to and/or potential harm posed by the COVID-19 virus with having a surgery/procedure at this time versus the risk of? delaying the surgery/procedure. It is not possible to know either the risk of delaying the surgery or procedure or chance of getting an infection with perfect accuracy, but a joint decision was made between the patient and the surgeon/proceduralist ?to proceed at this time with the scheduled surgery/procedure as indicated on the consent form. 04/01/20 1302 <Electronically signed by Danilo Peabod y MD> Date _ Danilo Crenshaw MD I have re-examined the patient. There are no clinical changes since date of exam.
== END 2020-04-09 11:32 | disposition home or self-care (01) ==
LOC: SDC 05:53 → AC 05:53
PROVIDERS: Anesthesiology; PCP Internal Medicine; Referring Provider Surgery; Visit Provider Surgery
PROC: 0FT44ZZ Resection of Gallbladder, Percutaneous Endoscopic Approach (ICD-10-PCS; CPT 47562; principal; 2020-04-09 07:10)
DX: K80.10 Calculus of gallbladder with chronic cholecystitis without obstruction (principal); K82.8 Other specified diseases of gallbladder; G89.29 Other chronic pain; Z11.59 Encounter for screening for other viral diseases; I25.10 Atherosclerotic heart disease of native coronary artery without angina pectoris; I10 Essential (primary) hypertension; E78.00 Pure hypercholesterolemia, unspecified; J44.9 Chronic obstructive pulmonary disease, unspecified; M19.90 Unspecified osteoarthritis, unspecified site; G47.30 Sleep apnea, unspecified; Z79.899 Other long term (current) drug therapy; Z87.891 Personal history of nicotine dependence
CPT/HCPCS: 47562; 36415; 80048; 87635; 88304; 93005; C9803; J7120; A4216; J2405; U0003

== ENCOUNTER 2020-06-17 16:40 | Inpatient (IN) | payer MEDICARE, SELFPAY ==
[2020-04-09 06:24] VITALS: BMI 25.7
[2020-06-17] VITALS (12 sets, daily range): BP systolic 110–150; BP diastolic 65–87; PULSE 76–116; RESP 12–20; TEMP 35.9–37.1; O2SAT 88–99; BMI 26.5; BMI 25.7
--- NOTE | 2020-06-17 16:59 | CT_ITS ---
We are attempting to reach an attending provider to discuss findings. An addendum with communication details will be sent when the communication is complete. STUDY: CTA CHEST REASON FOR EXAM: Female, 75 years old. SOB,DIZZY,FATIGUE. HISTORY OF PE RADIATION DOSAGE (If Supplied By Facility): CTDIvol = ( 5.51 ) mGy, DLP = ( 168.13 ) mGycm TECHNIQUE: The examination was performed with the intravenous administration of IV 100mL Isovue-370. Post-processing of the angiographic images was performed, with multiplanar reformation and 3D reconstruction. Individualized dose optimization techniques were used for this CT. COMPARISON: None. FINDINGS: 1.8 cm nodule of the left thyroid lobe, ultrasound recommended. There is bilateral pulmonary emboli. Pulmonary emboli is seen in the right apical segment pulmonary artery. Pulmonary emboli seen in the segmental artery to the anterior segment of the left upper lobe. Pulmonary emboli are seen extending down to the bilateral lower lobes worse on the right. No pulmonary emboli seen in the pulmonary trunk or main right and left pulmonary arteries. No evidence for right ventricular strain. Normal heart size. Normal thoracic aorta and visualized great vessels. There is no demonstrated aortic dissection. Hyperexpansion of the lungs with evidence for centrilobular emphysema. No infiltrates. There are degenerative changes of thoracic spine. Probable 2.2 cm cyst of the left lobe of liver. CT/CTA Chest W/WO Contrast IMPRESSION: Bilateral pulmonary emboli primarily to the lower lobes. Severe centrilobular edema. Electronically Signed: Bob Caban MD at 19:01 EST , Service support ,
[2020-06-17 18:25] LABS: Fibrinogen 329 mg/dl (203-444)
[2020-06-17 18:50] LABS: Lactic Acid 1.4 mmol/L (0.4-1.9)
[2020-06-17 19:31] LABS: Probe Check PASS; Specimen Processing Control PASS
--- NOTE | 2020-06-17 19:49 | ED.VISSUMM ---
- ER Visit Summary Date of Service: 06/17/20 Chief Complaint: Shortness of breath History of Present Illness: The patient is a [address] Sahu. She reports she has shortness of breath began today. States that she had a history of a PE after knee replacement in 2009. She is not on anticoagulants any longer. She saw her primary care physician and had a D-dimer that was elevated was sent to the emerge department for a CT of the chest. Patient reports she is also had chills today. She denies fever. She has a nonproductive cough. She also complains of a little bit of headache and generalized weakness. Physical Examination: Vitals: Stable. Afebrile. General: Well-nourished and well-developed. Head: Normocephalic atraumatic. Neck: Supple, no lymphadenopathy. No JVD. Nontender. Cardiovascular: Regular rate and rhythm. No murmurs. Respiratory: No respiratory distress. Clear to auscultation bilaterally. Abdominal: Soft, nontender, nondistended, normal bowel sounds. No guarding, rebound, or peritoneal signs. Back: Nontender. Extremities: Nontender, no edema. Skin: Normal color, no rash. Neurologic: Alert and oriented ?3. Cranial nerves II through XII are intact. Normal strength and sensation. Psych: Normal affect. Test Results: CBC shows stable neutrophils 82 lymphocytes 13. Chem-7 shows a potassium of 3.3. Covid is negative. D-dimer is 6.71. Lactic acid is 1.4. LFTs are normal. Troponin 0 0.016. Fibrinogen is 329. Clinical Impression(s) from Imaging Studies Chest CTA 06/17/20 16:59 IMPRESSION: Bilateral pulmonary emboli primarily to the lower lobes. Severe centrilobular edema. Electronically Signed: Bob Caban MD at 19:01 EST , Service support , ADDENDUM: 06/17/201946 IMPRESSION: Bilateral pulmonary emboli primarily to the lower lobes. Severe centrilobular edema. N.B. : The above information has been verbally conveyed by Bob Caban MD to Dr. Venkatesh Monique MD, on 06/17/2020 19:40:31 (ET). Electronically Signed: Bob Caban MD at 19:01 EST , Service support , Emergency Department Course and Treatment: Patient's pulse ox was 86% on room air. She is 94% on 2 L. She is given Lovenox subcu. She refused pain medications. She is resting comfortably. Treatment Plan: Patient was discussed with Dr. Singh. She will be admitted to the hospital for further evaluation and treatment. Disposition: Admitted in improved condition. Impression: 1. Pulmonary embolism. 2. Hypoxia. This note was generated with [employer] dictation software. It may contain incorrect words, spelling, and punctuation that were not noted in review of the chart prior to signing ED Disposition - Plan for ED Patient: Referrals: Luis Alberto,Isabella, DO [Primary Care Provider] -
[2020-06-17 20:02] LABS: CPK Total, Creatine Kinase 380 U/L (26-192); CRP 5.05 mg/L (0.0-3.0); LDH 568 U/L (84-246)
--- NOTE | 2020-06-17 20:02 | PCM.HP.STD ---
Problem List (1) Pulmonary embolism, bilateral Status: Acute (2) Hypoxia Status: Acute (3) Thyroid nodule incidentally noted on imaging study Status: Acute (4) Former tobacco use Status: Chronic (5) Anxiety and depression Status: Chronic (6) COPD (chronic obstructive pulmonary disease) Status: Chronic Qualifiers: COPD type: unspecified COPD Qualified Code(s): J44.9 - Chronic obstructive pulmonary disease, unspecified History of Present Illness Date of Admission: 06/17/20 Chief Complaint: Dyspnea, dizziness, fatigue. The patient is a 75 y/o F w/ PMHx: Anxiety and Depression, ? CAD, Chronic COPD, HTN, Hx PE 2009 after TKR, NILDA on BIPAP q HS who presents to the [facility] ED on 06/17/20 with history of PCP visit day prior noted to have felt appropriate at that time however this morning patient awoke and noted onset of dyspnea with mild cough, malaise and fatigue with no specific chest pain with PCP reevaluation with outpatient labs inclusive of D-dimer 6.71 outpatient with referral to the ED for CTPA. She has no recent travel or prolonged immobility history. Patient does report that her father had a history of clots and also a sister had a history of pulmonary emboli. She denies ever having been worked up previously but cannot say for certain. Patient denies any recent fever, nausea, emesis, abdominal pain, diarrhea, headaches, significant body aches, alteration to sense of taste or smell. Patient of note did have recent cholecystectomy, robotic assisted on 04/09/2020. Work-up in the ED included T 98.4, heart rate 102, BP 130 #74, respiratory rate 12, initially 88% on room air with improvement to 95% on 2 L nasal cannula, fibrinogen 329, lactic acid 1.4, LDH 568, T CK 380, troponin 0 0.020, procalcitonin pending, Covid negative, blood culture x2 pending per ED, CTPA with bilateral pulmonary emboli primarily to the lower lobes with severe centrilobular emphysema. In the ED patient ministered Lovenox 60 mg subcu x1. Past Medical History Past Medical History (Chronic Problems): Chronic Problems (Last Reviewed 04/01/20 @ 13:[address] Danilo Crenshaw MD) Former tobacco use (Chronic) Anxiety and depression (Chronic) HTN (hypertension) (Chronic) COPD (chronic obstructive pulmonary disease) (Chronic) Medical History: Medical History (Last Reviewed 04/01/20 @ 13:[address] Danilo Crenshaw MD) Anxiety and depression (Acute) F41.9, F32.9 Arthritis (Acute) M19.90 HTN (hypertension) (Chronic) I10 CAD (coronary artery disease) (Acute) I25.10 Pulmonary embolism (Acute) I26.99 COPD (chronic obstructive pulmonary disease) (Chronic) J44.9 Cholelithiasis (Acute) K80.20 RUQ pain (Acute) R10.11 Allergies morphine Allergy (Verified 06/17/20 16:40) Nausea/Vom/Diarrhea Home Medications: Ambulatory Orders Medication Instructions Recorded Hydrochlorothiazide [Hctz] 25 mg PO DAILY 06/17/[address] [place] [Spiriva] 18 mcg INHALATION DAILY 06/17/20 Surgical History: Surgical History (Last Updated 04/16/20 @ 14:36 by Delores Lynch) Hx of cholecystectomy (Acute) Z90.49 04/09/20 History of tonsillectomy and adenoidectomy (Acute) Z98.890 history bilateral CTR (Acute) History of tubal ligation (Acute) Z98.51 history left leg vein stripping (Acute) History of total left knee replacement (Acute) Z96.652 Surgical History: - - Recent cholecystectomy 03/2020, tonsillectomy, left total knee replacement. Psychiatric History: Anxiety, Depression [employer] History: No pertinent [employer] history Lives: Alone Smoking Status: Former smoker - Patient quit cigarette tobacco usage in 1990 with prior to this 1 pack/day since she been 23 years old. Tobacco Use: Non-smoker Alcohol: Rare Drugs: None - *Family History Maternal History Items: - - Patient with maternal family history of heart disease, A. fib. Paternal History Items: - - Patient with paternal family history of heart disease, history of blood clots. Review of Systems Constitutional: Reports: Malaise, Weakness, Fatigue. Denies: Anorexia, Chills, Fever, Weight Change HEENT: Denies: Head Aches, Sinus Congestion, Sinus Drainage Cardiovascular: Denies: Chest Pain, Palpitations Respiratory: Reports: Cough, Shortness of Breath, Shortness of breath at rest, Shortness of breath upon exertion. Denies: Sputum production Gastrointestinal: Denies: Abdominal Pain, Nausea, Vomiting Genitourinary: Denies: Dysuria Musculoskeletal: Denies: Joint Pain, Joint Tenderness Skin: Denies: Rash, Wounds Neurological: Denies: Numbness, Tingling, Focal weakness Psychiatric: Reports: Anxiety, Depression. Denies: Homicidal Ideations, Suicidal Ideations Hematologic/ Lymphatic: Denies: Easy Bruising, Easy Bleeding VTE Information - Inpt Only VTE Present on Admission: No VTE Mechan Device Prophylaxis: SCD's VTE Pharm Prophylaxis ordered?: Yes VTE Suspected: Suspected PE Patient Problems: Active and Suspected Problems (Last Reviewed 04/01/20 @ 13:[address] Danilo Crenshaw MD) Pulmonary embolism, bilateral (Acute) Thyroid nodule incidentally noted on imaging study (Acute) Hypoxia (Acute) Subjective: Patient seated upright in the ED bed, fatigued appearance otherwise no acute distress, denies any chest discomfort or shortness of breath currently. Objective: Physical Examination: General: awake, alert, oriented x 3 and cooperative, seated upright in the ED bed in no apparent distress, fatigued appearing. Skin: normal color, turgor, no icterus, cyanosis. HEENT: AT/NC, EOMI, PERRLA, mildly dry MM, no carotid bruits or JVD noted. Lungs: Diminished breath sounds, greater bilateral bases, mildly reduced effort, no evidence of distress, no rales, ronchi or wheezing. Heart: Mildly tachycardic with regular rhythm; no gallop, rub audible. Abdomen: soft, NTTP, ND, normal BS, no HSM. Extremities: no cyanosis, clubbing, or edema. Neurological: patient awake, alert, oriented as noted; cognitive function intact; pupils equally reactive to light and accomodation; cranial nerves II-XII grossly normal, moving all 4 extremities, no focal deficits, strength moderately globally decreased secondary to acute presentation. Psychiatric: affect appears fatigued otherwise normal, no acute evidence of depressive or anxiety feelings. - Physical Exam Vitals/I&O's: Vital Signs Temp Pulse Resp BP Pulse Ox 98.7 F 87 17 129/65 H 94 06/17/20 19:00 06/17/20 19:00 06/17/20 19:00 06/17/20 19:00 06/17/20 19:00 Oxygen Flow Rate (L/min) 2 Oxygen Delivery Method Nasal Cannula Weight: 136 lb Body Mass Index (BMI) 26.5 Laboratory Results 06/17/20 17:27: COVID-19 (MADELYN) Negative 06/17/20 17:42: Lactic Acid 1.4 06/17/20 17:42: Fibrinogen 329 06/17/20 17:42: Lactate Dehydrogenase 568 H, Total Creatine Kinase 380 H, Troponin I 0.020, C-React Prot Ext Range 5.05 H 06/17/20 17:42: Procalcitonin Pending Assessment/Plan All Active Problems (Last Reviewed 04/01/20 @ 13:[address] Danilo Crenshaw MD) Pulmonary embolism, bilateral (Acute) Thyroid nodule incidentally noted on imaging study (Acute) Hypoxia (Acute) Hx of cholecystectomy (Acute) History of tonsillectomy and adenoidectomy (Acute) history bilateral CTR (Acute) History of tubal ligation (Acute) history left leg vein stripping (Acute) History of total left knee replacement (Acute) Arthritis (Acute) CAD (coronary artery disease) (Acute) Pulmonary embolism (Acute) Cholelithiasis (Acute) RUQ pain (Acute) The patient is a 75 y/o F w/ PMHx: Anxiety and Depression, ? CAD, Chronic COPD, HTN, Hx PE 2009 after TKR, NILDA on BIPAP q HS who presents to the [facility] ED on 06/17/20 with history of PCP visit day prior noted to have felt appropriate at that time however this morning patient awoke and noted onset of dyspnea with mild cough, malaise and fatigue with no specific chest pain with PCP reevaluation with outpatient labs inclusive of D-dimer 6.71 outpatient with referral to the ED for CTPA. 1. Acute hypoxia, dyspnea secondary to Pulmonary Embolism: EKG without acute findings, D-dimer elevated outpatient, CTPA with bilateral pulmonary emboli primary in the low lower lobes with severe centrilobular emphysema, troponin 0.020. Outpatient CMP with potassium 3.3 otherwise not marked appearing, outpatient CBC with WBC 10.6, hemoglobin 13.8, platelet 270 with left shift, no family history of hypercoaguable state. Patient notes no recent travel. Will admit to PCU, maintain on cardiac telemetry. Will obtain BNP and trend enzymes. Recent echocardiogram with currently normal enzymes, will defer immediate repeat order however if enzymes or other concerns arise may add. Given patient significant family history of VTE will obtain hypercoaguable panel to be thorough. Will continue therapeutic lovenox regimen with pending AM insurance oral regimen investigation. ED did obtain Covid panel pending testing with LDH 568, T CK 380, CRP 505, procalcitonin less than 0.01, lactic acid 1.4. If patient with any further onset of significant Covid concerning symptoms may need to consider repeat testing as given initial onset of symptoms only today viral load could be low. 2. Hypokalemia: Admission K+ 3.3, magnesium level requested, supplementation given, repeat level in AM. 3. Incidental thyroid nodule: Noted thyroid nodule 1.8 cm in the left lobe, will need follow-up ultrasound. 4. Incidental liver questionable cyst: CT with questionable 2.62 cm cyst of the left lobe of the liver. 5. Hypertension: Continue home regimen including hydrochlorothiazide with hold parameters, PRN hydralazine. 6. Chronic COPD: Will maintain on oxygen with wean as tolerated to room air, continue ATC duonebs, PRN albuterol, HOB, IS parameters. 7. Former tobacco use: Encourage continued tobacco cessation. 8. Anxiety and depression: Not on regimen, encourage continued outpatient follow-up as needed. 9. History of pulmonary emboli, provoked: Patient with history of PE in 2009 after a total knee replacement, treated at that time, not on regimen following 6-month duration. 10. CAD: Listed in history but patient denies any history of coronary disease prior and no history of stents, will maintain on therapeutic Lovenox, not on statin regimen, beta-brian, VIVI inhibitor, given unclear history will defer aggressive addition at this time. 11. NILDA: We will continue nightly BiPAP regimen. 12. DVT prophylaxis: SCDs, continue therapeutic Lovenox pending a.m. Case management assist for cost of oral agents. 13. CODE status: Patient HCPARTURO is Kaley Barker her daughter and living will is currently in place. Discussed CODE status at length including difference between FULL code, DNR-CCA and DNR-CC status. Following discussions about the differences in these status, requested Full Code status. Advanced Care Planning Face to Face Time: 16 minutes. Inpatient E&M: 43607 Init Hosp L3 Procedures: 47103 Advncd Care Plan 30 Min
[2020-06-17] MEDS: Enoxaparin 60 MG/0.6 ML Syringe SC (20:04)
[2020-06-17 20:18] LABS: Procalcitonin < 0.01 ng/mL (0.00-0.09)
[2020-06-17] MEDS: Famotidine 20 MG Tablet PO (22:44)
[2020-06-17] MEDS: Atorvastatin Calcium 10 MG Tablet 5 MG PO (22:44)
[2020-06-17 23:05] LABS: BNP,B-Type NATRIURETIC PEPTIDE 108.8 pg/mL (0-100)
[2020-06-18] VITALS (10 sets, daily range): BP systolic 100–122; BP diastolic 43–66; PULSE 75–91; RESP 18–20; TEMP 36.6–37.1; O2SAT 89–96
[2020-06-18 04:43] LABS: Absolute Lymphocyte Count 2.57 X10^3/uL (0.83-4.51); Absolute Neutrophil Count 3.8 X10^3/uL (2.0-7.7); Basophil# 0.04 X10^3/uL; Basophil% 0.6 % (0-1); Eosinophils% 1.4 % (0-5); Hematocrit 38.6 % (37-47); Hemoglobin 12.5 g/dL (12.0-15.0); Lymphocyte # 2.57 X10^3/ul (4.0); Lymphocyte % 36.6 % (19-41); Mean Corp Hgb Conc 32.4 g/dL (32-36); Mean Corpuscular Hgb 29.9 pg (27.0-32.0); Mean Corpuscular Volume 92.3 fL (81-99); Mean Platelet Vol. 8.4 fl (6.2-12.0); Monocyte# 0.49 X10^3/uL; NRBC Flagged by Analyzer 0 % (0-5); Neutrophil % 54.1 % (47-70); Platelet Count 208 K/mm3 (150-450); RBC Distribution Width CV 12.9 % (11.6-14.6); RBC Distribution Width SD 43.5 fl (35.1-43.9); Red Blood Count 4.18 M/mm3 (4.2-5.4)
[2020-06-18 05:58] LABS: ALB/GLOB Ratio 0.9 RATIO (0.9-2.4); AST(SGOT) 21 U/L (15-37); Alanine Aminotransfer ALT/SGPT 27 U/L (13-56); Albumin, Serum 3.1 g/dL (3.2-5.0); Alkaline Phosphatase 82 U/L (45-117); Anion Gap 4 (5-15); BUN 9 mg/dL (7-18); BUN/Creat Ratio 13.7 RATIO (10-20); Calcium,Total 8.9 mg/dL (8.5-10.1); Chloride 103 mmol/L (98-107); Creatinine, Serum 0.66 mg/dL (0.55-1.02); EST Glomerular Filtration Rate 93 mL/min (>60); Est Glom Filt Rate - Afr Amer 112 mL/min (>60); Estimated Creatinine Clearance 33.84 ml/min; Globulin 3.5 g/dL (2.2-4.2); Glucose 86 mg/dL (74-106); Potassium 3.7 mmol/L (3.5-5.1); Protein, Total 6.6 g/dL (6.4-8.2); Sodium Level 138 mmol/L (136-145)
[2020-06-18] MEDS: Enoxaparin 60 MG/0.6 ML Syringe SC ×2 (06:16→16:49)
--- NOTE | 2020-06-18 06:26 | CPS ---
PT DECLINED USE OF HOSPITAL BIPAP
[2020-06-18] MEDS: Ipratropium/Albuterol Sulfate 3 ML AMPUL.NEB INHALATION ×3 (07:11→16:45)
--- NOTE | 2020-06-18 07:38 | PN_ITS ---
Patient Problems: Active and Suspected Problems (Last Reviewed 04/01/20 @ 13:[address] Danilo Crenshaw MD) Pulmonary embolism, bilateral (Acute) Thyroid nodule incidentally noted on imaging study (Acute) Hypoxia (Acute) Vitals/I&O's: Vital Signs Temp Pulse Resp BP Pulse Ox 98.7 F 87 19 H 101/64 96 06/18/20 03:55 06/18/20 06:35 06/18/20 03:55 06/18/20 03:55 06/18/20 03:55 Oxygen Flow Rate (L/min) 2 Oxygen Delivery Method Nasal Cannula Weight: 134 lb 0.657 oz Body Mass Index (BMI) 25.7 Intake and Output for Last 24 Hours 06/16/20 06/17/20 06/18/20 23:59 23:59 23:59 Intake Total 300 / 300 Output Total 0 / 0 Balance 300 / 300 Laboratory Results 06/17/20 17:27: COVID-19 (MADELYN) Negative 06/17/20 17:42: Lactic Acid 1.4 06/17/20 17:42: Fibrinogen 329 06/17/20 17:42: Lactate Dehydrogenase 568 H, Total Creatine Kinase 380 H, Troponin I 0.020, C-React Prot Ext Range 5.05 H 06/17/20 17:42: Procalcitonin < 0.01 06/17/20 22:25: Magnesium 2.0, Troponin I 0.027 06/17/20 22:25: B-Natriuretic Peptide 108.8 H 06/17/20 22:25: Protein C Antigen Pending, Functional Protein C Pending, Prot C Funct Activity Pending, Antithrombin III Ag Pending, Func Antithrombin III Pending, Factor V Leiden Mutat Pending, Beta-2-GPI IgG Ab Pending, Beta-2-GPI IgA Ab Pending, Beta-2-GPI IgM Ab Pending, Anti-Cardiolipin IgG Ab Pending, Anti-Cardiolipin IgM Ab Pending, Factor II DNA Analysis Pending 06/18/20 01:00: Troponin I 0.031 06/18/20 04:36: WBC 7.0, RBC 4.18 L, Hgb 12.5, Hct 38.6, MCV 92.3, MCH 29.9, MCHC 32.4, RDW Std Deviation 43.5, RDW Coeff of David 12.9, Plt Count 208, MPV 8.4, Immature Gran % (Auto) 0.300, Neut % (Auto) 54.1, Lymph % (Auto) 36.6, Toombs % (Auto) 7.0, Eos % (Auto) 1.4, Baso % (Auto) 0.6, Absolute Neuts (auto) 3.8, Absolute Lymphs (auto) 2.57, Nucleated RBC % 0 06/18/20 04:36: Sodium 138, Potassium 3.7, Chloride 103, Carbon Dioxide 31.0, Anion Gap 4 L, BUN 9, Creatinine 0.66, Estim Creat Clear Calc 33.84, Est GFR (MDRD) Af Amer 112, Est GFR (MDRD) Non-Af 93, BUN/Creatinine Ratio 13.7, Glucose 86, Calcium 8.9, Total Bilirubin 0.50, AST 21, ALT 27, Alkaline Phosphatase 82, Total Protein 6.6, Albumin 3.1 L, Globulin 3.5, Albumin/Globulin Ratio 0.9 06/18/20 04:36: Troponin I 0.025 Current Medications Acetaminophen (Acetaminophen 325 Mg Tablet) 650 mg PO Q6H PRN PRN PRN Reason: Pain Score 1-10/Temp > 100.7 F Al Hydroxide/Mg Hydroxide (Mag Hydrox/Al Hydrox/Simeth 30 Ml Udc) 30 ml PO Q6H PRN PRN PRN Reason: Gastric Burning Albuterol Sulfate (Albuterol 2.5 Mg/3 Ml Vial.Neb.) 2.5 mg INHALATION Q2H PRN PRN PRN Reason: Dyspnea, wheezing Albuterol/Ipratropium (Ipratropium/Albuterol Sulfate 3 Ml Ampul.Neb) 3 ml INHALATION Q4HWA.RT [facility] Last Admin: 06/18/20 07:11 Dose: 3 ml Documented by: Atorvastatin Calcium (Atorvastatin Calcium 10 Mg Tablet) 5 mg PO QHS [facility] Last Admin: 06/17/20 22:44 Dose: 5 mg Documented by: Citalopram Hydrobromide (Citalopram 10 Mg Tablet) 10 mg PO DAILY [facility] Enoxaparin Sodium (Enoxaparin 60 Mg/0.6 Ml Syringe) 60 mg SC Q12@0600,1800 [facility] Last Admin: 06/18/20 06:16 Dose: 60 mg Documented by: Famotidine (Famotidine 20 Mg Tablet) 20 mg PO BID [facility] Last Admin: 06/17/20 22:44 Dose: 20 mg Documented by: Guaifenesin (Guaifenesin 10 Ml Udc (200mg/10ml)) 20 ml PO Q4H PRN PRN PRN Reason: COUGH Hydralazine HCl (Hydralazine 20 Mg/Ml Vial) 10 mg IV Q4H PRN PRN PRN Reason: SBP > 160 Hydrochlorothiazide (Hydrochlorothiazide 25 Mg Tablet) 25 mg PO DAILY [facility] Hydromorphone HCl (Hydromorphone 0.5 Mg/0.5 Ml Syringe) 0.5 mg IV Q4H PRN PRN PRN Reason: Pain Score 6-10 Magnesium Hydroxide (Magnesium Hydroxide 30 Ml Udc) 30 ml PO DAILY PRN PRN PRN Reason: Constipation Melatonin (Melatonin 3 Mg Tablet) 3 mg PO QHS PRN PRN PRN Reason: INSOMNIA Nitroglycerin (Nitroglycerin (Inpatient Use) 0.4 Mg Tab.Subl) 0.4 mg SUBLINGUAL Q5M PRN PRN Reason: CARDIAC/CHEST PAIN Ondansetron HCl (Ondansetron 4 Mg/2 Ml Vial) 4 mg IV Q8H PRN PRN PRN Reason: NAUSEA/VOMITING Oxycodone HCl (Oxycodone 5 Mg Tablet) 5 mg PO Q4H PRN PRN PRN Reason: Pain Score 4-5 Prochlorperazine Edisylate (Prochlorperazine 10 Mg/2 Ml Vial) 5 mg IV Q4H PRN PRN PRN Reason: Breakthrough Nausea/Vomiting Psyllium Hydrophilic Mucilloid (Psyllium 1 Packet) 1 packet PO DAILY PRN PRN PRN Reason: Constipation Senna/Docusate Sodium (Senna/Docusate Sodium 1 Tablet) 2 tablet PO BID PRN PRN PRN Reason: Constipation Sodium Chloride (0.9% Saline Lock 10 Ml Syringe) 10 - 40 ml IV UD PRN PRN Reason: SALINE FLUSH Throat Lozenges (Benzocaine/Menthol 1 Lozenge) 1 lozenge MUCOUS MEM Q2H PRN PRN PRN Reason: SORE THROAT STROKE Vital Signs/Narrative: Vital Signs Temp Pulse Resp BP Pulse Ox 06/18/20 06:35 87 06/18/20 03:55 98.7 F 81 19 H 101/64 96 Medical Necessity - Tobacco Use Smoking Status: Former smoker - Patient quit cigarette tobacco usage in 1990 with prior to this 1 pack/day since she been 23 years old. Tobacco Use: Non-smoker Assessment/Plan All Active Problems (Last Reviewed 04/01/20 @ 13:[address] Danilo Crenshaw MD) Pulmonary embolism, bilateral (Acute) Thyroid nodule incidentally noted on imaging study (Acute) Hypoxia (Acute) Hx of cholecystectomy (Acute) History of tonsillectomy and adenoidectomy (Acute) history bilateral CTR (Acute) History of tubal ligation (Acute) history left leg vein stripping (Acute) History of total left knee replacement (Acute) Arthritis (Acute) CAD (coronary artery disease) (Acute) Pulmonary embolism (Acute) Cholelithiasis (Acute) RUQ pain (Acute) The patient is a 75 y/o F w/ PMHx: Anxiety and Depression, ? CAD, Chronic COPD, HTN, Hx PE 2009 after TKR, NILDA on BIPAP q HS who presents to the [facility] ED on 06/17/20 with history of PCP visit day prior noted to have felt appropriate at that time however this morning patient awoke and noted onset of dyspnea with mild cough, malaise and fatigue with no specific chest pain with PCP reevaluation with outpatient labs inclusive of D-dimer 6.71 outpatient with referral to the ED for CTPA. 1. Acute hypoxia, dyspnea secondary to Pulmonary Embolism: EKG without acute findings, D-dimer elevated outpatient, CTPA with bilateral pulmonary emboli primary in the low lower lobes with severe centrilobular emphysema, troponin 0.020. Outpatient CMP with potassium 3.3 otherwise not marked appearing, outpatient CBC with WBC 10.6, hemoglobin 13.8, platelet 270 with left shift, no family history of hypercoaguable state. Patient notes no recent travel. Will admit to PCU, maintain on cardiac telemetry. Will obtain BNP and trend enzymes. Recent echocardiogram with currently normal enzymes, will defer immediate repeat order however if enzymes or other concerns arise may add. Given patient significant family history of VTE will obtain hypercoaguable panel to be thorough. Will continue therapeutic lovenox regimen with pending AM insurance oral regimen investigation. ED did obtain Covid panel pending testing with LDH 568, T CK 380, CRP 505, procalcitonin less than 0.01, lactic acid 1.4. If patient with any further onset of significant Covid concerning symptoms may need to consider repeat testing as given initial onset of symptoms only today viral load could be low. 2. Hypokalemia: Admission K+ 3.3, magnesium level requested, supplementation given, repeat level in AM. 3. Incidental thyroid nodule: Noted thyroid nodule 1.8 cm in the left lobe, will need follow-up ultrasound. 4. Incidental liver questionable cyst: CT with questionable 2.62 cm cyst of the left lobe of the liver. 5. Hypertension: Continue home regimen including hydrochlorothiazide with hold parameters, PRN hydralazine. 6. Chronic COPD: Will maintain on oxygen with wean as tolerated to room air, continue ATC duonebs, PRN albuterol, HOB, IS parameters. 7. Former tobacco use: Encourage continued tobacco cessation. 8. Anxiety and depression: Not on regimen, encourage continued outpatient follow-up as needed. 9. History of pulmonary emboli, provoked: Patient with history of PE in 2009 after a total knee replacement, treated at that time, not on regimen following 6-month duration. 10. CAD: Listed in history but patient denies any history of coronary disease prior and no history of stents, will maintain on therapeutic Lovenox, not on statin regimen, beta-brian, VIVI inhibitor, given unclear history will defer aggressive addition at this time. 11. NILDA: We will continue nightly BiPAP regimen. 12. DVT prophylaxis: SCDs, continue therapeutic Lovenox pending a.m. Case management assist for cost of oral agents.
--- NOTE | 2020-06-18 07:54 | ECHOL_ITS ---
Version 2 Reason For Study: BILAT PE Procedure This was a limited 2D transthoracic echocardiogram. previous echo on 04/08/20. Exam performed portable in patient room. Left Ventricle Normal LV size. The estimated ejection fraction is 60 %. Unable to assess diastolic dysfunction. No regional wall motion abnormalities noted. Right Ventricle Normal RV size. Normal systolic function. Atria Normal left atrium. Normal right atrium. No doppler evidence for ASD. Mitral Valve There is moderate mitral annular calcification. There is no mitral valve stenosis. No mitral valve insufficiency. Tricuspid Valve There is no tricuspid stenosis. Mild to moderate (1-2+) tricuspid valve insufficiency. Pulmonary artery systolic pressure is 45-50 mmHg. Aortic Valve Trisinus/trileaflet aortic valve. There is no aortic stenosis. No aortic valve insufficiency. Pulmonic Valve There is no pulmonic valvular stenosis. No pulmonic valve insufficiency. Great Vessels Normal aortic root. Pericardium/Pleural No pericardial effusion. MMode/2D Measurements & Calculations LVIDd: 4.2 cm IVSd: 0.82 cm LAV(MOD-bp): 39.0 ml LVIDs: 3.1 cm LVPWd: 0.78 cm LAV(MOD-bp) Indexed: 24.8 ml/m2 RVDd: 3.4 cm FS: 26.8 % LAV(MOD-sp2): 48.0 ml LAV(MOD-sp4): 25.1 ml SV(MOD-sp4): 35.6 ml SV(sp4-el): 37.0 ml LVAd ap4: 24.2 cm2 EDV(MOD-sp4): 61.8 ml EDV(sp4-el): 62.7 ml LVAs ap4: 13.5 cm2 ESV(MOD-sp4): 26.1 ml ESV(sp4-el): 25.7 ml EF(MOD-sp4): 57.7 % EF(sp4-el): 59.0 % LA A4 area: 11.6 cm2 RA A4 area: 13.3 cm2 Doppler Measurements & Calculations TR max imtiaz: 342.3 cm/sec TR max P.9 mmHg Interpretation Summary The estimated ejection fraction is 60 %. Unable to assess diastolic dysfunction. Mild to moderate (1-2+) tricuspid valve insufficiency. Ordering Physician: Selvin Truk Referring Physician: HERMILA PEACOCK Performed By: Lucina Trivedi, KATIE, RVT
--- NOTE | 2020-06-18 07:56 | EKG12_ITS ---
Test Reason : Blood Pressure : / mmHG Vent. Rate : 095 BPM Atrial Rate : 095 BPM P-R Int : 140 ms QRS Dur : 072 ms QT Int : 398 ms P-R-T Axes : 068 -02 012 degrees QTc Int : 500 ms Sinus rhythm with Premature atrial complexes Septal infarct , age undetermined Abnormal ECG When compared with ECG of 03-APR-2020 09:50, Premature atrial complexes are now Present Confirmed by MADELINE BRADLEY, STACI ([id number]), publishing editor CHELY LUO ([id number]) on 06/22/2020 10:43:16 AM Referred By: Ratna Singh Confirmed By:STACI CORREA MD
--- NOTE | 2020-06-18 08:17 | PCM.DC ---
- Discharge Diagnoses Current Active Problems: Current Active and Chronic Problems (Last Reviewed 04/01/20 @ 13:[address] Danilo Crenshaw MD) Pulmonary embolism, bilateral (Acute) Thyroid nodule incidentally noted on imaging study (Acute) Former tobacco use (Chronic) Hypoxia (Acute) Anxiety and depression (Chronic) COPD (chronic obstructive pulmonary disease) (Chronic) You will use the following diet at home:: Cardiac Your food should be the consistency of: Regular Discharge Activity: May Not Drive - for atleast 1 week and then follow up PCP Call your doctor if you observe: Fever of 101 or Higher, Change in Color, Inability to have a bowel movement, Shortness of breath, Dizziness, Fainting spells, Swelling in the ankles, Chest pain, Prolonged hiccoughing, Increased palpitations (irregular heartbeat), Calf discomfort, Uncontrolled pain Allergies/Adverse Reactions: Allergies morphine Allergy (Verified 06/17/20 16:40) Nausea/Vom/Diarrhea Medications to take at Discharge Hydrochlorothiazide [Hctz] 25 mg PO DAILY 06/17/20 Tiotropium [place] [Spiriva] 18 mcg INHALATION DAILY 06/17/20 Apixaban [Eliquis] 10 mg PO BID #70 tab.ds.pk 06/18/20 The following prescriptions were given: Apixaban [Eliquis] 10 mg PO BID #70 tab.ds.pk Transmission Status: Received by [facility] Primary Care Physician: Isabella Sahu DO [Primary Care Provider] - Please follow up with your Primary Care Physician in: [place] 1-2 weeks Test Results: Test results from this visit will be discussed in further detail at your follow-up appointment, if applicable.
--- NOTE | 2020-06-18 08:37 | CASEMGMT ---
Addendum entered by Roxanne Mcmanus 06/18/20 09:33: Per Karl in [facility] retail pharmacy, pt's monthly co-pay will be $47 but he will apply Eliquis 30 day free card at this time. Ethan MARTINEZ CM Original Note: Pt to be sent home on Eliquis at discharge and med e-scribed to [facility] retail pharmacy previously. Call to Karl in pharmacy and he states he will work on at this time and call this JUAN LUNA back with coverage/co-pay. Eliquis 30 day free trial card to also be applied. Ethan MARTINEZ CM
[2020-06-18] MEDS: hydroCHLOROthiazide 25 MG Tablet PO (09:28)
--- NOTE | 2020-06-18 10:59 | CASEMGMT ---
JUAN LUNA assessment: Phone interview with patient for initial transition planning/care coordination assessment. JUAN LUNA introduced self and role at [facility], pt voices understanding and consents to assessment at this time. Pt is A/Ox4 at this time and answers all questions appropriately at this time. Pt is speaks in full sentences, no SOB at this time. Care providers, pharmacy, and demographics verified at this time. Presentation: Woke up SOB, fatigue, dizzy, chills, neck pain Admitting dx: Bilat PE PCP: Luis Alberto Specialists: Pt states no current specialists at this time. Preferred Pharmacy: Carlos Alexander/[facility]-see previous notes regarding Eliquis [facility] Prescription Benefit: Hum[facility] Living Will/HPOA: Pt states has LW/HPOA and is aware that they are not on file at [facility] at this time. Pt states her daughter, Calista Marvin, is HPOA. LNOK: Calista Marvin, daughter/HPOA; Regine Haver, daughter Living Arrangements: Pt states lives alone in 1 story home and states no concerns at home at this time. Pt states is independent with ADL's. Transportation: Pt states drives self and states no transportation concerns at this time. DME/HHC: Pt states has bipap thru [facility] and states no need for any further DME at this time. Pt states no hx of HHC or SNF in the past. Pt does not qualify for home oxygen at this time. Pt states no concerns with going home at time of discharge. Pt states is retired. Pt states does not smoke cigarettes and rarely drinks ETOH. Pt voices no further concerns/needs at this time. CM to follow for any further discharge planning/needs. Advised pt to ask for CM if any further questions/concerns/needs arise, voices understanding. Pt Goal: Home Plan[place] JUAN [place]NA
--- NOTE | 2020-06-18 16:33 | PCM.DC.SUM ---
Discharge Date and Diagnosis - Problem List Patient Problems: Active and Suspected Problems (Last Reviewed 04/01/20 @ 13:[address] Danilo Crenshaw MD) Pulmonary embolism, bilateral (Acute) Thyroid nodule incidentally noted on imaging study (Acute) Hypoxia (Acute) Date of Admission: 06/17/20 Date of Discharge: 06/18/20 - Primary Discharge Diagnosis Acute Problems: Active Problems (Last Reviewed 04/01/20 @ 13:[address] Danilo Crenshaw MD) Pulmonary embolism, bilateral (Acute) Thyroid nodule incidentally noted on imaging study (Acute) Hypoxia (Acute) - Secondary Discharge Diagnosis Chronic Problems: Chronic Problems (Last Reviewed 04/01/20 @ 13:[address] Danilo Crenshaw MD) Former tobacco use (Chronic) Anxiety and depression (Chronic) HTN (hypertension) (Chronic) COPD (chronic obstructive pulmonary disease) (Chronic) Hospital Course and Treatment Imaging Results: 06/18/20 07:54 Echo, Limited Study [ECHO] Routine Summary of Care Provided: The patient is a 75 year old F with triple comorbidities including COPD, hypertension history of previous PE in 2009 after TKR, obstructive sleep apnea on BiPAP, remote smoking, about 13 pack years of smoking, quit in 1990 was admitted for sudden onset of dyspnea and hypoxia secondary to bilateral pulmonary embolism. CTPA was done and showed bilateral pulmonary emboli primarily to the lower lobes, right apical segment, left upper lobe but no pulmonary trunk or main right and left pulmonary arteries. No evidence of right ventricular strain. .It also shows severe centrilobular emphysema but patient states she has mild COPD. Patient was started on Lovenox 60 mg subcu 12 hourly. Serial troponin enzymes negative. Mildly elevated BNP. 2D echo was done. Interpretation Summary The estimated ejection fraction is 60 %. Normal RV size and systolic function. Mild to moderate (1-2+) tricuspid valve insufficiency. Patient is being discharged home on Eliquis 10 mg p.o. twice daily for 1 week and then 5 mg p.o. twice daily indefinitely as this is a second episode with no provocative cause. Mild hypokalemia, potassium corrected. Magnesium 2.0. Incidental findings were noted on CT scan including probable 2.2 cm cyst of left lobe of liver and 1.8 cm left thyroid lobe nodule. Outpatient further evaluation with ultrasound advised. Patient COPD is stable. She denies history of coronary artery disease or cardiac stents. Discharge medication reconciliation done. Discharge follow-up instructions completed. Discharge process discussed with the patient and all questions were answered to patient's satisfaction. Total time spent, exact 35 minutes on discharge meds reconciliation, examination, coordination of care with nurses and ancillary staff, review of imaging and blood test and discussion with the patient on follow-up instructions Patient was admitted as inpatient but was discharged because of sooner recovery than expected at time of admission. Patient blood pressure and heart rate is within normal limit. Clinical Impression(s) from Imaging Studies Chest CTA 06/17/20 16:59 IMPRESSION: Bilateral pulmonary emboli primarily to the lower lobes. Severe centrilobular edema. Patient Problems: Active and Suspected Problems (Last Reviewed 04/01/20 @ 13:[address] Danilo Crenshaw MD) Pulmonary embolism, bilateral (Acute) Thyroid nodule incidentally noted on imaging study (Acute) Hypoxia (Acute) Objective: Seen and examined. Heart rate and blood pressure is controlled. No hypoxia or tachypnea. No hypotension. Serial troponins enzymes are negative. BNP elevated 109. Patient has history of PE in the past in 2009 after she had total knee replacement. She had remote history of smoking and history of mild emphysema on Spiriva at home. She does not take bronchodilator inhaler because it gives rise to her cough. General: Alert, Oriented x3, Cooperative HEENT: Atraumatic, PERRLA, EOMI, Normocephalic Oral: No Gingival or Mucosal Lesions/ Ulcerations Neck: Supple, No JVD, Negative Carotid Bruits Lungs: Air entry diminished in bilateral lung bases. No crepitation/rhonchi or wheezing. No hypoxia. Cardiovascular: Regular rate, Regular Rhythm, Normal S1, Normal S2, No murmurs Abdomen: Bowel Sounds Present, Soft, Non Tender, Non-Distended : No renal angle tenderness. No suprapubic tenderness. Extremities: No edema, Capillary Refill Less than 3 Seconds Skin: No rashes, No breakdown Musculoskeletal: No Tenderness to Palpation of Joints or Extremities. No palpable swelling. Neurological: Cranial nerves II-XII grossly intact, Deep Tendon Reflexes 2+/4 and Symmetrical, Neuro grossly intact Psych/Mental Status: Normal Affect, Appropriate. - Physical Exam Vitals/I&O's: Vital Signs Temp Pulse Resp BP Pulse Ox 98.5 F 86 18 100/43 L 95 06/18/20 14:21 06/18/20 14:59 06/18/20 14:21 06/18/20 14:21 06/18/20 14:21 Oxygen Flow Rate (L/min) 2 Oxygen Delivery Method Room Air Weight: 134 lb 0.657 oz Body Mass Index (BMI) 25.7 Intake and Output for Last 24 Hours 06/16/20 06/17/20 06/18/20 23:59 23:59 23:59 Intake Total 700 / 700 Output Total 0 / 0 Balance 700 / 700 Laboratory Results 06/17/20 17:27: COVID-19 (MADELYN) Negative 06/17/20 17:42: Lactic Acid 1.4 06/17/20 17:42: Fibrinogen 329 06/17/20 17:42: Lactate Dehydrogenase 568 H, Total Creatine Kinase 380 H, Troponin I 0.020, C-React Prot Ext Range 5.05 H 06/17/20 17:42: Procalcitonin < 0.01 06/17/20 22:25: Magnesium 2.0, Troponin I 0.027 06/17/20 22:25: B-Natriuretic Peptide 108.8 H 06/17/20 22:25: Protein C Antigen Pending, Functional Protein C Pending, Prot C Funct Activity Pending, Antithrombin III Ag Pending, Func Antithrombin III Pending, Factor V Leiden Mutat Pending, Beta-2-GPI IgG Ab Pending, Beta-2-GPI IgA Ab Pending, Beta-2-GPI IgM Ab Pending, Anti-Cardiolipin IgG Ab Pending, Anti-Cardiolipin IgM Ab Pending, Factor II DNA Analysis Pending 06/18/20 01:00: Troponin I 0.031 06/18/20 04:36: WBC 7.0, RBC 4.18 L, Hgb 12.5, Hct 38.6, MCV 92.3, MCH 29.9, MCHC 32.4, RDW Std Deviation 43.5, RDW Coeff of David 12.9, Plt Count 208, MPV 8.4, Immature Gran % (Auto) 0.300, Neut % (Auto) 54.1, Lymph % (Auto) 36.6, [place] % (Auto) 7.0, Eos % (Auto) 1.4, Baso % (Auto) 0.6, Absolute Neuts (auto) 3.8, Absolute Lymphs (auto) 2.57, Nucleated RBC % 0 06/18/20 04:36: Sodium 138, Potassium 3.7, Chloride 103, Carbon Dioxide 31.0, Anion Gap 4 L, BUN 9, Creatinine 0.66, Estim Creat Clear Calc 33.84, Est GFR (MDRD) Af Amer 112, Est GFR (MDRD) Non-Af 93, BUN/Creatinine Ratio 13.7, Glucose 86, Calcium 8.9, Total Bilirubin 0.50, AST 21, ALT 27, Alkaline Phosphatase 82, Total Protein 6.6, Albumin 3.1 L, Globulin 3.5, Albumin/Globulin Ratio 0.9 06/18/20 04:36: Troponin I 0.025 Current Medications Acetaminophen (Acetaminophen 325 Mg Tablet) 650 mg PO Q6H PRN PRN PRN Reason: Pain Score 1-10/Temp > 100.7 F Al Hydroxide/Mg Hydroxide (Mag Hydrox/Al Hydrox/Simeth 30 Ml Udc) 30 ml PO Q6H PRN PRN PRN Reason: Gastric Burning Albuterol Sulfate (Albuterol 2.5 Mg/3 Ml Vial.Neb.) 2.5 mg INHALATION Q2H PRN PRN PRN Reason: Dyspnea, wheezing Albuterol/Ipratropium (Ipratropium/Albuterol Sulfate 3 Ml Ampul.Neb) 3 ml INHALATION Q4HWA.RT [facility] Last Admin: 06/18/20 11:12 Dose: 3 ml Documented by: Atorvastatin Calcium (Atorvastatin Calcium 10 Mg Tablet) 5 mg PO QHS [facility] Last Admin: 06/17/20 22:44 Dose: 5 mg Documented by: Citalopram Hydrobromide (Citalopram 10 Mg Tablet) 10 mg PO DAILY [facility] Last Admin: 06/18/20 09:27 Dose: Not Given Documented by: Enoxaparin Sodium (Enoxaparin 60 Mg/0.6 Ml Syringe) 60 mg SC Q12@0600,1800 [facility] Last Admin: 06/18/20 06:16 Dose: 60 mg Documented by: Famotidine (Famotidine 20 Mg Tablet) 20 mg PO BID [facility] Last Admin: 06/18/20 09:29 Dose: Not Given Documented by: Guaifenesin (Guaifenesin 10 Ml Udc (200mg/10ml)) 20 ml PO Q4H PRN PRN PRN Reason: COUGH Hydralazine HCl (Hydralazine 20 Mg/Ml Vial) 10 mg IV Q4H PRN PRN PRN Reason: SBP > 160 Hydrochlorothiazide (Hydrochlorothiazide 25 Mg Tablet) 25 mg PO DAILY [facility] Last Admin: 06/18/20 09:28 Dose: 25 mg Documented by: Hydromorphone HCl (Hydromorphone 0.5 Mg/0.5 Ml Syringe) 0.5 mg IV Q4H PRN PRN PRN Reason: Pain Score 6-10 Magnesium Hydroxide (Magnesium Hydroxide 30 Ml Udc) 30 ml PO DAILY PRN PRN PRN Reason: Constipation Melatonin (Melatonin 3 Mg Tablet) 3 mg PO QHS PRN PRN PRN Reason: INSOMNIA Nitroglycerin (Nitroglycerin (Inpatient Use) 0.4 Mg Tab.Subl) 0.4 mg SUBLINGUAL Q5M PRN PRN Reason: CARDIAC/CHEST PAIN Ondansetron HCl (Ondansetron 4 Mg/2 Ml Vial) 4 mg IV Q8H PRN PRN PRN Reason: NAUSEA/VOMITING Oxycodone HCl (Oxycodone 5 Mg Tablet) 5 mg PO Q4H PRN PRN PRN Reason: Pain Score 4-5 Prochlorperazine Edisylate (Prochlorperazine 10 Mg/2 Ml Vial) 5 mg IV Q4H PRN PRN PRN Reason: Breakthrough Nausea/Vomiting Psyllium Hydrophilic Mucilloid (Psyllium 1 Packet) 1 packet PO DAILY PRN PRN PRN Reason: Constipation Senna/Docusate Sodium (Senna/Docusate Sodium 1 Tablet) 2 tablet PO BID PRN PRN PRN Reason: Constipation Sodium Chloride (0.9% Saline Lock 10 Ml Syringe) 10 - 40 ml IV UD PRN PRN Reason: SALINE FLUSH Throat Lozenges (Benzocaine/Menthol 1 Lozenge) 1 lozenge MUCOUS MEM Q2H PRN PRN PRN Reason: SORE THROAT Discharge Activity: May Not Drive - for atleast 1 week and then follow up PCP Call your doctor if you observe: Fever of 101 or Higher, Change in Color, Inability to have a bowel movement, Shortness of breath, Dizziness, Fainting spells, Swelling in the ankles, Chest pain, Prolonged hiccoughing, Increased palpitations (irregular heartbeat), Calf discomfort, Uncontrolled pain Home Medications: Medications to take at Discharge Hydrochlorothiazide [Hctz] 25 mg PO DAILY 06/17/20 Tiotropium [place] [Spiriva] 18 mcg INHALATION DAILY 06/17/20 Apixaban [Eliquis] 10 mg PO BID #70 tab.ds.pk 06/18/20 Following Prescriptions Were Given to Patient: Apixaban [Eliquis] 10 mg PO BID #70 tab.ds.pk Transmission Status: Received by [facility] Primary Care Physician: Isabella Sahu DO [Primary Care Provider] - Please follow up with your Primary Care Physician in: IN 1-2 weeks Medical Necessity - Tobacco Use Smoking Status: Former smoker - Patient quit cigarette tobacco usage in 1990 with prior to this 1 pack/day since she been 23 years old. Tobacco Use: Non-smoker Meaningful Use Info Meaningful Use Diagnoses (Choose all that apply): VTE - VTE Anticoag overlap given w/in hospital stay or rx'd at [place]?: Yes Pt receive overlap for 5 days?: No Reason overlap not ordered, prescribed, or given for 5 days: Treatment Not Indicated - On Eliquis Inpatient E&M: [id number] [facility]
[2020-06-24 14:09] LABS: Protein C Antigen 89 % (60-150); Protein C, Functional 115 % (73-180)
[2020-06-24 14:58] LABS: Anti-Cardiolipin Ab, IgG, Qn < 9 GPL U/mL (0-14); Anti-Cardiolipin Ab, IgM, Qn 15 MPL U/mL (0-12); Anti-Thrombin 3 AG, Immunol 88 % (72-124); Antithrombin 3 Function 101 % (75-135); Beta-2-Glycoprotein I IgA <9 (0-25); Beta-2-Glycoprotein I IgG <9 (0-20); Beta-2-Glycoprotein I IgM <9 (0-32)
== END 2020-06-18 17:40 | disposition home or self-care (01) | DRG 176 ==
LOC: ED 17:06 → PCU 20:38
PROVIDERS: Admitting Provider Family Medicine; Emergency Provider Emergency Medicine; PCP Internal Medicine; Referring Provider Family Medicine; Visit Provider Internal Medicine
DX: I26.99 Other pulmonary embolism without acute cor pulmonale (principal); R09.02 Hypoxemia; E04.1 Nontoxic single thyroid nodule; K76.89 Other specified diseases of liver; E87.6 Hypokalemia; I10 Essential (primary) hypertension; J44.9 Chronic obstructive pulmonary disease, unspecified; G47.33 Obstructive sleep apnea (adult) (pediatric); F32.9 Major depressive disorder, single episode, unspecified; F41.9 Anxiety disorder, unspecified; Z86.711 Personal history of pulmonary embolism; Z79.01 Long term (current) use of anticoagulants; Z79.899 Other long term (current) drug therapy; Z87.891 Personal history of nicotine dependence
CPT/HCPCS: 36415; 71275; 80053; 81240; 81241; 82550; 83605; 83615; 83735; 83880; 84145; 84443; 84484; 85025; 85300; 85301; 85302; 85303; 85379; 85384; 86140; 86146; 86147; 87040; 87635; 93005; 93308; 94640; 99251; 99284; Q9967; A4216; G0463; U0002

== ENCOUNTER → 2020-06-17 | Outpatient (CLI) | payer MEDICARE, SELFPAY ==
[2020-04-09 06:24] VITALS: BMI 25.7
[2020-06-17 15:14] LABS: Absolute Lymphocyte Count 1.42 X10^3/uL (0.83-4.51); Absolute Neutrophil Count 8.7 X10^3/uL (2.0-7.7); Basophil# 0.03 X10^3/uL; Basophil% 0.3 % (0-1); Eosinophil# 0.01 X10^3/uL; Eosinophils% 0.1 % (0-5); Hematocrit 43.2 % (37-47); Hemoglobin 13.8 g/dL (12.0-15.0); Lymphocyte # 1.42 X10^3/ul (4.0); Lymphocyte % 13.4 % (19-41); Mean Corp Hgb Conc 31.9 g/dL (32-36); Mean Corpuscular Hgb 29.8 pg (27.0-32.0); Mean Corpuscular Volume 93.3 fL (81-99); Mean Platelet Vol. 9.1 fl (6.2-12.0); Monocyte# 0.39 X10^3/uL; Monocyte% 3.7 % (0-10); NRBC Flagged by Analyzer 0 % (0-5); Neutrophil # 8.72 X10^3/uL (2.7-7.7); Neutrophil % 82.1 % (47-70); Platelet Count 270 K/mm3 (150-450); RBC Distribution Width SD 44.1 fl (35.1-43.9); Red Blood Count 4.63 M/mm3 (4.2-5.4); White Blood Count 10.6 K/mm3 (4.4-11.0)
[2020-06-17 16:03] LABS: ALB/GLOB Ratio 1.1 RATIO (0.9-2.4); AST(SGOT) 27 U/L (15-37); Alanine Aminotransfer ALT/SGPT 34 U/L (13-56); Albumin, Serum 3.8 g/dL (3.2-5.0); Alkaline Phosphatase 96 U/L (45-117); Anion Gap 6 (5-15); BUN 13 mg/dL (7-18); BUN/Creat Ratio 17.2 RATIO (10-20); Calcium,Total 9.1 mg/dL (8.5-10.1); Chloride 99 mmol/L (98-107); Creatinine, Serum 0.76 mg/dL (0.55-1.02); EST Glomerular Filtration Rate 79 mL/min (>60); Est Glom Filt Rate - Afr Amer 96 mL/min (>60); Globulin 3.5 g/dL (2.2-4.2); Glucose 104 mg/dL (74-106); Potassium 3.3 mmol/L (3.5-5.1); Protein, Total 7.3 g/dL (6.4-8.2); Sodium Level 136 mmol/L (136-145); Thyroid Stim Hormone (TSH) 1.53 uIU/mL (0.358-3.74)
[2020-06-17 16:09] LABS: D-Dimer Quantitative (DVT/PE) 6.71 FEU/ug/m (0.27-0.49)
== END | disposition home or self-care (01) ==
LOC: LABSPEC 14:52
PROVIDERS: PCP Internal Medicine; Visit Provider Internal Medicine
DX: R06.02 Shortness of breath (principal); R53.83 Other fatigue
CPT/HCPCS: 80053; 84443; 84484; 85025; 85379

== ENCOUNTER 2020-06-19 12:31 | Observation (INO) | payer MEDICARE, SELFPAY ==
[2020-06-17 21:58] VITALS: BMI 25.7
[2020-06-19] VITALS (8 sets, daily range): BP systolic 106–128; BP diastolic 66–94; PULSE 83–109; RESP 16–21; TEMP 36.7–37.1; O2SAT 97–100; BMI 26.9; BMI 27.0; BMI 26.4
--- NOTE | 2020-06-19 12:49 | EKG12_ITS ---
Test Reason : WEAKNESS/DIZZINESS Blood Pressure : / mmHG Vent. Rate : 101 BPM Atrial Rate : 101 BPM P-R Int : 158 ms QRS Dur : 068 ms QT Int : 372 ms P-R-T Axes : 075 -06 013 degrees QTc Int : 482 ms Sinus tachycardia Otherwise normal ECG Confirmed by MADELINE BRADLEY, STACI ([id number]), editor school photograph CHELY LUO ([id number]) on 06/22/2020 9:47:54 AM Referred By: MIGUEL ÁNGEL Confirmed By:STACI CORREA MD
--- NOTE | 2020-06-19 12:50 | ED.DCSUM_ITS ---
History of Present Illness Chief Complaint: General Illness Informant: Patient Onset: Today Narrative: Patient presents today from home for concerns for lightheaded symptoms after getting up. She states feels wobbly. Discharged yesterday after 1 day stay for multilobe pulmonary embolism placed on Eliquis. She took her morning dose. She denies any dyspnea complaints currently. She did not require home oxygen. Denies chest pains. Denies vomiting or diarrhea. States her daughter is home checking on her. She states she just does not feel right. No urinary symptoms. No fevers. History of sleep apnea with a BiPAP at night. PE in 2009. Prior similar symptoms: No Past Medical History - Allergies and Home Meds Allergies/Adverse Reactions: Allergies morphine Allergy (Verified 06/19/20 12:38) Nausea/Vom/Diarrhea Primary Care Physician: Isabella Sahu DO [Primary Care Provider] - Past Medical History: - - Hypertension, COPD, coronary disease, bilateral PE Surgical History: - - Recent cholecystectomy 03/2020, tonsillectomy, left total knee replacement. Smoking Status: Former smoker - Family History Maternal Family History: Reports: - - Patient with maternal family history of heart disea Harpal irby. Paternal Family History: Reports: - - Patient with paternal family history of heart disease, history of blood clots. Review of Systems General: Denies: Chills, Fever, Sweats Eyes: Denies: Visual changes - bilaterally, Diplopia ENT: Denies: Rhinorrhea, Sore throat Cardiovascular: Denies: Chest pain, Palpitations Respiratory: Denies: Dyspnea, Cough, Dyspnea on exertion Gastrointestinal: Denies: Abdominal pain, Nausea, Vomiting, Diarrhea, Melena, Hematochezia Genitourinary: Denies: Dysuria, Hematuria, Frequency Musculoskeletal: Denies: Back pain, Extremity Pain Skin: Denies: Rash, Wounds Neurological: Denies: Headache, Weakness, Numbness Physical Exam Vital Signs/Narrative: Vital Signs Temp Pulse Resp BP Pulse Ox 06/19/20 12:32 98.1 F 108 H 20 H 128/66 H 97 Inital Vital Signs reviewed: Yes General: Well nourished, Well developed, No Acute Distress Head: Normocephalic, Atraumatic Eyes: Perrl, EOMI ENT: No rhinorrhea, Dry mucous membranes Neck: Supple, Nontender Cardiovascular: Regular rhythm, No murmurs, Tachycardia Respiratory: No distress, CTA bilaterally, Chest nontender Abdomen: Soft, Nontender, Nondistended, Normal bowel sounds Back: Nontender, Normal Inspection Extremities: Nontender, No edema Skin: Normal color, No rash Neurological: Alert, Oriented x3, Cranial nerves II-XII grossly intact, Normal Strength, Normal Sensation Psychological: Normal affect, Normal Mood Diagnostic/Tx/Re-eval Abnormal Lab Results 06/19/20 06/19/20 12:45 12:45 WBC 8.4 RBC 4.84 Hgb 14.3 Hct 44.5 MCV 91.9 MCH 29.5 MCHC 32.1 RDW Std Deviation 43.7 RDW Coeff of David 12.9 Plt Count 246 MPV 8.8 Immature Gran % (Auto) 0.400 Neut % (Auto) 77.1 H Lymph % (Auto) 17.6 L [place] % (Auto) 3.9 Eos % (Auto) 0.5 Baso % (Auto) 0.5 Absolute Neuts (auto) 6.5 Absolute Lymphs (auto) 1.47 Nucleated RBC % 0 Sodium 136 Potassium 3.4 L Chloride 100 Carbon Dioxide 29.0 Anion Gap 7 BUN 12 Creatinine 0.79 Estim Creat Clear Calc 33.84 Est GFR (MDRD) Af Amer 91 Est GFR (MDRD) Non-Af 75 BUN/Creatinine Ratio 15.2 Glucose 114 H Calcium 9.3 - EKG Initial EKG Interpretation: Sinus Rhythm - Sinus 101, no ST or T wave changes. QTc 482. - Medical Decision Making Patient slightly tachycardic with dry mucosal membranes on arrival. Denies vomiting or diarrhea. EKG sinus tachycardia she is given IV fluids. Labs obtain stable normal creatinine electrolytes. Urine is pending however she is asymptomatic. Given a liter of fluids, upon standing she is not lightheaded however heart rate went to 120s, her legs were unsteady. Her pulse ox went to 88% per nursing. Known PE already took her Eliquis this morning. Placed on oxy gen I discussed with case management, discussed she would need admission for oxygen and placement cannot be done through the ED at this time. I spoke with hospitalist Dr. Reyna, will admit to PCU for observation. ED Disposition - Plan for ED Patient: Disposition: Acute Care Hospital [facility] Diagnosis: Near syncope, Dehydration, Hypoxia, Pulmonary embolism Referrals: Fast,Isabella, DO [Primary Care Provider] -
[2020-06-19 13:16] LABS: Absolute Lymphocyte Count 1.47 X10^3/uL (0.83-4.51); Absolute Neutrophil Count 6.5 X10^3/uL (2.0-7.7); Basophil# 0.04 X10^3/uL; Basophil% 0.5 % (0-1); Eosinophil# 0.04 X10^3/uL; Eosinophils% 0.5 % (0-5); Hematocrit 44.5 % (37-47); Hemoglobin 14.3 g/dL (12.0-15.0); Lymphocyte # 1.47 X10^3/ul (4.0); Lymphocyte % 17.6 % (19-41); Mean Corp Hgb Conc 32.1 g/dL (32-36); Mean Corpuscular Hgb 29.5 pg (27.0-32.0); Mean Corpuscular Volume 91.9 fL (81-99); Mean Platelet Vol. 8.8 fl (6.2-12.0); Monocyte# 0.33 X10^3/uL; Monocyte% 3.9 % (0-10); NRBC Flagged by Analyzer 0 % (0-5); Neutrophil # 6.45 X10^3/uL (2.7-7.7); Neutrophil % 77.1 % (47-70); Platelet Count 246 K/mm3 (150-450); RBC Distribution Width CV 12.9 % (11.6-14.6); RBC Distribution Width SD 43.7 fl (35.1-43.9); Red Blood Count 4.84 M/mm3 (4.2-5.4); White Blood Count 8.4 K/mm3 (4.4-11.0)
[2020-06-19 13:24] LABS: Anion Gap 7 (5-15); BUN 12 mg/dL (7-18); BUN/Creat Ratio 15.2 RATIO (10-20); Calcium,Total 9.3 mg/dL (8.5-10.1); Chloride 100 mmol/L (98-107); Creatinine, Serum 0.79 mg/dL (0.55-1.02); EST Glomerular Filtration Rate 75 mL/min (>60); Est Glom Filt Rate - Afr Amer 91 mL/min (>60); Estimated Creatinine Clearance 33.84 ml/min; Glucose 114 mg/dL (74-106); Potassium 3.4 mmol/L (3.5-5.1); Sodium Level 136 mmol/L (136-145)
[2020-06-19] MEDS: 0.9% Normal Saline 1,000 ML 1000 ML IV (13:30)
--- NOTE | 2020-06-19 14:13 | ED.RN ---
talked to pt's daughter Kaley after getting verbal permission from pt. Kaley would like a call back when more information is obtained at [phone]
--- NOTE | 2020-06-19 14:31 | ED.RN ---
pt assisted to bedside commode, upon assisting pt back to bed pt's spo2 had dropped to 88%. dr. matias.
[2020-06-19 14:34] LABS: Bacteria 0 SEEN /hpf (None Seen); Mucous, Urine 0 SEEN /hpf (<or=2+); Red Blood Cells-Urine 0 SEEN /hpf (0-5)
--- NOTE | 2020-06-19 15:20 | NURSING ---
PCU [facility]NC[facility]
[2020-06-19 15:22] LABS: Color, Urine Yellow (Yellow); Glucose, Dipstick Normal (Normal); Ketone-Dipstick 15 mg/dl (Negative); Leukocyte Esterase-Dipstick 500 /ul (Negative); Nitrite-Dipstick Negative (Negative); Occult Blood-Urine Negative /ul (Negative); Protein-Dipstick Negative (Negative); Urine Bilirubin Dipstick Negative (Negative); Urine Clarity Sl. Cloudy (Clear); Urine Urobilinogen Normal (Normal)
--- NOTE | 2020-06-19 15:26 | HP.PCM_ITS ---
History of Present Illness Date of Admission: 06/19/20 Chief Complaint: shortness of brewath, malaise The patient is a 75 year old F with an extensive past medical history as outlined and recently diagnosed with bilateral PE. Patient was admitted recently for sudden onset of dyspnea was found to be hypoxic. CTA done showed bilateral pulmonary emboli prominently in the lower lobes with no evidence of right ventricular strain and there was also evidence of severe central lobar emphysema. 2D echo done showed EF of 60% with normal right ventricular size and systolic function. Patient was discharged home on 06/18/2020 on therapeutic Eliquis. She says she felt better when she got home but this morning when she woke up she felt weak and also felt short of breath. She denied any lightheadedness, palpitations, dizziness, headache, chest pain, nausea vomiting or diarrhea. Review of symptoms otherwise negative. In the ED, temperature was 98.1 blood pressure of 128/66, pulse rate of 103 and respiratory of 21. She was saturating at 100% on 2 L of oxygen. Chemistry showed sodium of 136 with potassium of 3.4. CBC was unremarkable. She has been admitted to manage for acute hypoxic respiratory insufficiency likely due to bilateral PE. [] Past Medical History Past Medical History (Chronic Problems): Chronic Problems (Last Reviewed 04/01/20 @ 13:[address] Danilo Crenshaw MD) Former tobacco use (Chronic) Anxiety and depression (Chronic) HTN (hypertension) (Chronic) COPD (chronic obstructive pulmonary disease) (Chronic) Medical History: Medical History (Last Reviewed 04/01/20 @ 13:[address] Danilo Crenshaw MD) Anxiety and depression (Chronic) F41.9, F32.9 Arthritis (Acute) M19.90 HTN (hypertension) (Chronic) I10 CAD (coronary artery disease) (Acute) I25.10 Pulmonary embolism (Acute) I26.99 COPD (chronic obstructive pulmonary disease) (Chronic) J44.9 Cholelithiasis (Acute) K80.20 RUQ pain (Acute) R10.11 Allergies morphine Allergy (Verified 06/19/20 12:38) Nausea/Vom/Diarrhea Home Medications: Ambulatory Orders Medication Instructions Recorded Hydrochlorothiazide [Hctz] 25 mg PO DAILY 06/17/20 Tiotropium [place] [Spiriva] 18 mcg INHALATION DAILY 06/17/20 Apixaban [Eliquis] 10 mg PO BID #70 tab.ds.pk 06/18/20 Cholecalciferol (Vitamin D3) 1,000 unit PO DAILY 06/19/20 [Vitamin D3] Surgical History: Surgical History (Last Updated 04/16/20 @ 14:36 by Delores Lynch) Hx of cholecystectomy (Acute) Z90.49 04/09/20 History of tonsillectomy and adenoidectomy (Acute) Z98.890 history bilateral CTR (Acute) History of tubal ligation (Acute) Z98.51 history left leg vein stripping (Acute) History of total left knee replacement (Acute) Z96.652 Surgical History: - - Recent cholecystectomy 03/2020, tonsillectomy, left total knee replacement. 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 fib. Paternal History Items: - - Patient with paternal family history of heart disease, history of blood clots. Review of Systems Constitutional: Reports: Malaise, Weakness, Fatigue. Denies: Chills, Fever, Weight Change Eyes: Denies: Blurred vision HEENT: Denies: Head Aches, Sinus Congestion, Sinus Drainage Cardiovascular: Denies: Chest Pain, Chest Pressure, Edema, Heaviness, Light Headedness, Orthopnea, Palpitations, Paroxysmal Noc. Dyspnea, Syncope Respiratory: Reports: Shortness of Breath, Shortness of breath at rest, Shortness of breath upon exertion. Denies: Cough, Sputum production Gastrointestinal: Denies: Abdominal Pain, Nausea, Vomiting Genitourinary: Denies: Dysuria Musculoskeletal: Denies: Joint Pain, Joint Tenderness Skin: Denies: Rash, Wounds Neurological: Denies: Numbness, Tingling, Focal weakness Psychiatric: Denies: Anxiety, Depression, Homicidal Ideations, Suicidal Ideations Hematologic/ Lymphatic: Denies: Easy Bruising, Easy Bleeding VTE Information - Inpt Only VTE Present on Admission: Yes VTE Pharm Prophylaxis ordered?: Yes Patient Problems: Active and Suspected Problems (Last Reviewed 04/01/20 @ 13:[address] Danilo Crenshaw MD) Hypoxia (Acute) Near syncope (Acute) Dehydration (Acute) Pulmonary embolism (Acute) - Physical Exam Vitals/I&O's: Vital Signs Temp Pulse Resp BP Pulse Ox 98.1 F 103 H 21 H 128/66 H 100 06/19/20 12:32 06/19/20 14:32 06/19/20 14:32 06/19/20 12:32 06/19/20 14:32 Oxygen Flow Rate (L/min) 2 Oxygen Delivery Method Nasal Cannula Weight: 140 lb 6.951 oz Body Mass Index (BMI) 26.9 General: Alert, Oriented x3, Cooperative, No apparent distress HEENT: Atraumatic, PERRLA, EOMI, Normocephalic Oral: Dry Mucosa Neck: Supple, No JVD, Negative Carotid Bruits Lungs: Clear to auscultation, Normal air movement, No rhonchi, No wheeze, No rales, Tachypneic, - - on 2L of oxygen Cardiovascular: Normal S1, Normal S2, No murmurs, Tachycardic Abdomen: Bowel Sounds Present, Soft, Non Tender Extremities: No clubbing, No cyanosis, No edema, Capillary Refill Less than 3 Seconds Skin: No rashes, No breakdown Musculoskeletal: No Tenderness to Palpation of Joints or Extremities Lymphatic: No Cervical, Supraclavicular, or Inguinal Adenopathy Neurological: Cranial nerves II-XII grossly intact, Neuro grossly intact, Motor Exam 5/5 strength throughout Psych/Mental Status: Normal Affect, Appropriate, Alert and oriented to time, place, person, mood and affect Laboratory Results 06/19/20 12:45: WBC 8.4, RBC 4.84, Hgb 14.3, Hct 44.5, MCV 91.9, MCH 29.5, MCHC 32.1, RDW Std Deviation 43.7, RDW Coeff of David 12.9, Plt Count 246, MPV 8.8, Immature Gran % (Auto) 0.400, Neut % (Auto) 77.1 H, Lymph % (Auto) 17.6 L, [place] % (Auto) 3.9, Eos % (Auto) 0.5, Baso % (Auto) 0.5, Absolute Neuts (auto) 6.5, Absolute Lymphs (auto) 1.47, Nucleated RBC % 0 06/19/20 12:45: Sodium 136, Potassium 3.4 L, Chloride 100, Carbon Dioxide 29.0, Anion Gap 7, BUN 12, Creatinine 0.79, Estim Creat Clear Calc 33.84, Est GFR (MDRD) Af Amer 91, Est GFR (MDRD) Non-Af 75, BUN/Creatinine Ratio 15.2, Glucose 114 H, Calcium 9.3 06/19/20 14:20: Urine Color Pending, Urine Clarity Pending, Urine pH Pending, Ur Specific [place] Pending, Urine Protein Pending, Urine Glucose (UA) Pending, Urine Ketones Pending, Urine Occult Blood Pending, Urine Nitrite Pending, Urine Bilirubin Pending, Urine Urobilinogen Pending, Ur Leukocyte Esterase Pending, Urine RBC Pending, Urine WBC Pending, Ur Squamous Epith Cells Pending, Urine Bacteria Pending, Urine Mucus Pending Assessment/Plan All Active Problems (Last Reviewed 04/01/20 @ 13:[address] Danilo Crenshaw MD) Pulmonary embolism, bilateral (Acute) Thyroid nodule incidentally noted on imaging study (Acute) Hypoxia (Acute) Near syncope (Acute) Dehydration (Acute) Hx of cholecystectomy (Acute) History of tonsillectomy and adenoidectomy (Acute) history bilateral CTR (Acute) History of tubal ligation (Acute) history left leg vein stripping (Acute) History of total left knee replacement (Acute) Arthritis (Acute) CAD (coronary artery disease) (Acute) Pulmonary embolism (Acute) Cholelithiasis (Acute) RUQ pain (Acute) 75 y/o female admitted with a complaint of shortness of breath # Acute hypoxic respiratory insufficiency due to Bilateral PE * Admit to PCU with telemetry * Breathing treatments with bronchodilators. * Titrate oxygen to maintain saturation above 90% * Continue therapeutic dose of Eliquis * Will need assessment for home oxygen with walking pulse ox prior to discharge. * consult PT/OT #bilateral PE: Continue therapeutic dose of Eliquis #Kalemia: Potassium is 3.4. Will replace and monitor. #Incidental thyroid nodule: Thyroid nodule was noted in the left lobe and was 1.8 cm. Will need follow-up ultrasound on outpatient basis. #Hypertension: Continue hydrochlorothiazide. IV hydralazine as needed. #Chronic COPD: Continue breathing treatments with bronchodilators. #NILDA: On BiPAP nightly. DVT prophylaxis; not indicated as patient is on therapeutic anticoagulation OBSV E&M: 35433 Initial observation care L3
--- NOTE | 2020-06-19 15:39 | ED.RN ---
called and talked to pt's daughter, Kaley, and informed her that the patient was going to be admitted to [facility] room 121
[2020-06-19 16:16] LABS: Squamous Epithelial Cells - UA 0-5 SEEN /hpf (5-10); White Blood Cells 5-10 SEEN /hpf (0-5)
[2020-06-19] MEDS: Ipratropium 0.5 MG/2.5 ML SOLUTION INHALATION (18:59)
--- NOTE | 2020-06-19 19:31 | CPS ---
pt brought own bipap in from home-set up in room -already had water filled
[2020-06-19] MEDS: APIXABAN 5 MG TABLET 10 MG PO (21:07)
[2020-06-20] VITALS (18 sets, daily range): BP systolic 104–115; BP diastolic 60–70; PULSE 77–114; RESP 15–20; TEMP 36.6–37.2; O2SAT 94–100
[2020-06-20] MEDS: Ipratropium 0.5 MG/2.5 ML SOLUTION INHALATION ×3 (07:07→22:00)
--- NOTE | 2020-06-20 07:44 | PCM.PN.HOSP ---
Patient Problems: Active and Suspected Problems (Last Reviewed 04/01/20 @ 13:[address] Danilo Crenshaw MD) Hypoxia (Acute) Near syncope (Acute) Dehydration (Acute) Pulmonary embolism (Acute) Reason for Visit: She was admitted yesterday with shortness of breath and malaise. She denies any wheezing or cough or sputum production. No palpitation, and dizziness. Objective: Physical exam General: Alert, Oriented x3, Cooperative HEENT: Atraumatic, PERRLA, EOMI, Normocephalic Oral: No Gingival or Mucosal Lesions/ Ulcerations Neck: Supple, No JVD, Negative Carotid Bruits Lungs: Air entry diminished in bilateral lung bases. No crepitation/rhonchi/wheezing. Pulse ox 97% on room air. Not tachypneic Cardiovascular: Regular rate, Regular Rhythm, Normal S1, Normal S2, No murmurs Abdomen: Bowel Sounds Present, Soft, Non Tender, Non-Distended : No renal angle tenderness. No suprapubic tenderness. Extremities: No edema, Capillary Refill Less than 3 Seconds Skin: No rashes, No breakdown Musculoskeletal: No Tenderness to Palpation of Joints or Extremities Neurological: Cranial nerves II-XII grossly intact, Deep Tendon Reflexes 2+/4 and Symmetrical, Neuro grossly intact Psych/Mental Status: Normal Affect, Appropriate. Vitals/I&O's: Vital Signs Temp Pulse Resp BP Pulse Ox 97.9 F 83 16 104/63 97 06/20/20 03:00 06/20/20 06:00 06/20/20 03:30 06/20/20 03:00 06/20/20 03:00 Oxygen Flow Rate (L/min) 2 Oxygen Delivery Method Nasal Cannula Weight: 135 lb 3.2 oz Body Mass Index (BMI) 26.4 Intake and Output for Last 24 Hours 06/18/20 06/19/20 06/20/20 23:59 23:59 23:59 Intake Total 1240 / 1240 Balance 1240 / 1240 Laboratory Results 06/19/20 12:45: WBC 8.4, RBC 4.84, Hgb 14.3, Hct 44.5, MCV 91.9, MCH 29.5, MCHC 32.1, RDW Std Deviation 43.7, RDW Coeff of David 12.9, Plt Count 246, MPV 8.8, Immature Gran % (Auto) 0.400, Neut % (Auto) 77.1 H, Lymph % (Auto) 17.6 L, [place] % (Auto) 3.9, Eos % (Auto) 0.5, Baso % (Auto) 0.5, Absolute Neuts (auto) 6.5, Absolute Lymphs (auto) 1.47, Nucleated RBC % 0 06/19/20 12:45: Sodium 136, Potassium 3.4 L, Chloride 100, Carbon Dioxide 29.0, Anion Gap 7, BUN 12, Creatinine 0.79, Estim Creat Clear Calc 33.84, Est GFR (MDRD) Af Amer 91, Est GFR (MDRD) Non-Af 75, BUN/Creatinine Ratio 15.2, Glucose 114 H, Calcium 9.3 06/19/20 14:20: Urine Color Yellow, Urine Clarity Sl. Cloudy, Urine pH 8.0, Ur Specific [place] 1.010, Urine Protein Negative, Urine Glucose (UA) Normal, Urine Ketones 15 H, Urine Occult Blood Negative, Urine Nitrite Negative, Urine Bilirubin Negative, Urine Urobilinogen Normal, Ur Leukocyte Esterase 500 H, Urine RBC 0 SEEN, Urine WBC 5-10 SEEN, Ur Squamous Epith Cells 0-5 SEEN, Urine Bacteria 0 SEEN, Urine Mucus 0 SEEN Current Medications Apixaban (Apixaban 5 Mg Tablet) 10 mg PO BID REPLACED BY [facility] Stop: 06/25/20 22:01 Last Admin: 06/19/20 21:07 Dose: 10 mg Documented by: Apixaban (Apixaban 5 Mg Tablet) 5 mg PO BID REPLACED BY [facility] Cholecalciferol (Cholecalciferol (Vit D3) 1,000 Unit (25mcg)) 1,000 unit PO DAILY REPLACED BY [facility] Hydrochlorothiazide (Hydrochlorothiazide 25 Mg Tablet) 25 mg PO DAILY REPLACED BY [facility] Ipratropium [place] (Ipratropium 0.5 Mg/2.5 Ml Solution) 0.5 mg INHALATION Q6HWA.RT REPLACED BY [facility] Last Admin: 06/20/20 07:07 Dose: 0.5 mg Documented by: Nitroglycerin (Nitroglycerin (Inpatient Use) 0.4 Mg Tab.Subl) 0.4 mg SUBLINGUAL Q5M PRN PRN Reason: CARDIAC/CHEST PAIN Ondansetron HCl (Ondansetron 4 Mg/2 Ml Vial) 4 mg IV Q8H PRN PRN PRN Reason: NAUSEA/VOMITING Sodium Chloride (0.9% Saline Lock 10 Ml Syringe) 10 - 40 ml IV UD PRN PRN Reason: SALINE FLUSH STROKE Vital Signs/Narrative: Vital Signs Pulse 06/20/20 06:00 83 Medical Necessity - Tobacco Use Smoking Status: Former smoker Tobacco Use: Cigarettes Assessment/Plan All Active Problems (Last Reviewed 04/01/20 @ 13:[address] Danilo Crenshaw MD) Pulmonary embolism, bilateral (Acute) Thyroid nodule incidentally noted on imaging study (Acute) Hypoxia (Acute) Near syncope (Acute) Dehydration (Acute) Hx of cholecystectomy (Acute) History of tonsillectomy and adenoidectomy (Acute) history bilateral CTR (Acute) History of tubal ligation (Acute) history left leg vein stripping (Acute) History of total left knee replacement (Acute) Arthritis (Acute) CAD (coronary artery disease) (Acute) Pulmonary embolism (Acute) Cholelithiasis (Acute) RUQ pain (Acute) 75 y/o female admitted with a complaint of shortness of breath with mild tachycardia. Patient had 14 beats of PVC suggestive of NSVT. Serum magnesium and phosphorus level normal. # Acute hypoxic respiratory insufficiency due to Bilateral PE: Patient is admitted in PCU. Her pulse ox is 97% on room air. I feel like she has subjective sensation of shortness of breath. She has history of COPD therefore may be mild COPD exacerbation although she does not have wheezing, cough or sputum production. NSVT may be related to DuoNeb nebulization. She also get throat irritation with nebulization therefore DuoNeb neb cut down to every 8 hourly and Solu-Medrol 40 mg every 12 hourly and change dose prednisone 40 mg from tomorrow a.m. Serum magnesium and phosphorus level normal. Walking pulse oximetry tomorrow a.m. #bilateral PE: Continue therapeutic dose of Eliquis. She had work-up for PE done during previous hospitalization, echo EF 60% with normal right ventricular size and systolic function. No evidence of right ventricular strain. #Kalemia: Potassium is 3.4. Repeat K3.8. #Incidental thyroid nodule: Thyroid nodule was noted in the left lobe and was 1.8 cm. Will need follow-up ultrasound on outpatient basis. #Hypertension: Continue hydrochlorothiazide. IV hydralazine as needed. #Chronic COPD: Continue breathing treatments with bronchodilators. #NILDA: On BiPAP nightly. Inpatient E&M: 64638 Subs Hosp L2
[2020-06-20 08:24] LABS: Absolute Lymphocyte Count 2.07 X10^3/uL (0.83-4.51); Absolute Neutrophil Count 3.8 X10^3/uL (2.0-7.7); Basophil# 0.04 X10^3/uL; Basophil% 0.6 % (0-1); Eosinophil# 0.13 X10^3/uL; Hematocrit 41.5 % (37-47); Hemoglobin 12.8 g/dL (12.0-15.0); Lymphocyte # 2.07 X10^3/ul (4.0); Lymphocyte % 32.1 % (19-41); Mean Corp Hgb Conc 30.8 g/dL (32-36); Mean Corpuscular Hgb 29.2 pg (27.0-32.0); Mean Corpuscular Volume 94.5 fL (81-99); Mean Platelet Vol. 8.9 fl (6.2-12.0); Monocyte# 0.36 X10^3/uL; Monocyte% 5.6 % (0-10); NRBC Flagged by Analyzer 0 % (0-5); Neutrophil # 3.81 X10^3/uL (2.7-7.7); Neutrophil % 59.2 % (47-70); Platelet Count 215 K/mm3 (150-450); RBC Distribution Width CV 12.9 % (11.6-14.6); RBC Distribution Width SD 44.9 fl (35.1-43.9); Red Blood Count 4.39 M/mm3 (4.2-5.4); White Blood Count 6.4 K/mm3 (4.4-11.0)
[2020-06-20 08:44] LABS: Anion Gap 1 (5-15); BUN 10 mg/dL (7-18); BUN/Creat Ratio 13.4 RATIO (10-20); Calcium,Total 8.8 mg/dL (8.5-10.1); Chloride 105 mmol/L (98-107); Creatinine, Serum 0.75 mg/dL (0.55-1.02); EST Glomerular Filtration Rate 80 mL/min (>60); Est Glom Filt Rate - Afr Amer 97 mL/min (>60); Estimated Creatinine Clearance 33.84 ml/min; Glucose 86 mg/dL (74-106); Potassium 3.8 mmol/L (3.5-5.1); Sodium Level 138 mmol/L (136-145)
[2020-06-20] MEDS: APIXABAN 5 MG TABLET 10 MG PO ×2 (09:02→20:53)
[2020-06-20] MEDS: hydroCHLOROthiazide 25 MG Tablet PO (09:02)
--- NOTE | 2020-06-20 11:05 | RAD_ITS ---
HISTORY: HYPOXIA, BILATERAL PULMONARY EMBOLI XR Chest 2 Views TECHNIQUE: Frontal and lateral views of chest. # of images incl. paperwork: 2 COMPARISON: CTA chest 06/17/2020 FINDINGS: LINES: None. CARDIOVASCULAR STRUCTURES: Normal heart size. Peripheral attenuation and pruning of the pulmonary vascular tree. No pulmonary venous congestion. Pulmonary vasculature appears normal. LUNGS: Hyperinflated lungs. Emphysematous changes. No confluent areas of acute consolidation. PLEURA: No pleural effusions or pneumothorax. BONES: No acute osseous abnormality of the thorax. Mild levoscoliosis thoracolumbar junction. Senescent osseous changes. RAD/Chest PA and Lateral IMPRESSION: 1. No radiographic evidence of acute cardiopulmonary disease. 2. Pulmonary emphysema. at 2132 Reported and signed by: Mayank Garrido MD Electronically Signed: Mayank Garrido MD at 21:31 EST Tel , Service support ,
[2020-06-20] MEDS: 0.9% Saline Lock 10 ML Syringe IV ×2 (12:00→23:27)
[2020-06-20 13:39] LABS: Phosphorus 3.1 mg/dL (2.5-4.9)
[2020-06-21 03:10] VITALS: BP 107/64; PULSE 80; RESP 17; TEMP 36.2; O2SAT 97
[2020-06-21 04:07] VITALS: PULSE 78
[2020-06-21 06:45] VITALS: PULSE 85; RESP 20; O2SAT 96
[2020-06-21] MEDS: Ipratropium 0.5 MG/2.5 ML SOLUTION INHALATION (06:45)
[2020-06-21 07:00] VITALS: PULSE 86
[2020-06-21 08:47] VITALS: BP 116/63; PULSE 104; RESP 16; TEMP 36.7; O2SAT 96
[2020-06-21] MEDS: APIXABAN 5 MG TABLET 10 MG PO (08:52)
[2020-06-21] MEDS: predniSONE 20 MG Tablet 40 MG PO (08:52)
[2020-06-21] MEDS: hydroCHLOROthiazide 25 MG Tablet PO (08:53)
--- NOTE | 2020-06-21 09:18 | DCINST_ITS ---
- Discharge Diagnoses Current Active Problems: Current Active and Chronic Problems (Last Reviewed 04/01/20 @ 13:[address] Danilo Crenshaw MD) Hypoxia (Acute) Near syncope (Acute) Dehydration (Acute) Pulmonary embolism (Acute) You will use the following diet at home:: Cardiac Your food should be the consistency of: Regular Discharge Activity: May Not Drive - For 1 week Call your doctor if you observe: Fever of 101 or Higher, Coldness, Increased Pain, Numbness or Tingling, Change in Color, Inability to urinate, Inability to have a bowel movement, Using more than one pad per hour, Shortness of breath, Dizziness, Fainting spells, Swelling in the ankles, Chest pain, Increased palpitations (irregular heartbeat), Calf discomfort, Uncontrolled pain Allergies/Adverse Reactions: Allergies morphine Allergy (Verified 06/19/20 12:38) Nausea/Vom/Diarrhea Medications to take at Discharge Hydrochlorothiazide [Hctz] 25 mg PO DAILY 06/17/20 Tiotropium [place] [Spiriva] 18 mcg INHALATION DAILY 06/17/20 Cholecalciferol (Vitamin D3) [Vitamin D3] 1,000 unit PO DAILY 06/19/20 Apixaban [Eliquis] 10 mg PO BID #70 tab.ds.pk 06/21/20 predniSONE tablet 40 mg PO DAILY@0800 #4 tab 06/21/20 The following prescriptions were given: predniSONE tablet 40 mg PO DAILY@0800 #4 tab Transmission Status: Pending to [facility] Primary Care Physician: Isabella Sahu DO [Primary Care Provider] - Please follow up with your Primary Care Physician in: In 1 week Test Results: Test results from this visit will be discussed in further detail at your follow- up appointment, if applicable. Please Follow Up With: Heriberto Alcocer DO When: IN 3-4 WEEKS
--- NOTE | 2020-06-21 09:20 | PCM.DC.SUM ---
Discharge Date and Diagnosis - Problem List Patient Problems: Active and Suspected Problems (Last Reviewed 04/01/20 @ 13:[address] Danilo Crenshaw MD) Hypoxia (Acute) Near syncope (Acute) Dehydration (Acute) Pulmonary embolism (Acute) Date of Admission: 06/19/20 Date of Discharge: 06/21/20 - Primary Discharge Diagnosis Acute Problems: Active Problems (Last Reviewed 04/01/20 @ 13:[address] Danilo Crenshaw MD) Hypoxia (Acute) Near syncope (Acute) Dehydration (Acute) Pulmonary embolism (Acute) - Secondary Discharge Diagnosis Chronic Problems: Chronic Problems (Last Reviewed 04/01/20 @ 13:[address] Danilo Crenshaw MD) Former tobacco use (Chronic) Anxiety and depression (Chronic) HTN (hypertension) (Chronic) COPD (chronic obstructive pulmonary disease) (Chronic) Hospital Course and Treatment Summary of Care Provided: The patient is a 75 y/o female admitted with a complaint of shortness of breath with mild tachycardia. Patient had 14 beats of PVC suggestive of NSVT after DuoNeb nebulization. Serum magnesium and phosphorus level normal. # Acute hypoxic respiratory insufficiency due to Bilateral PE with possible mild COPD exacerbation: Patient is admitted in PCU. Her pulse ox is 97% on room air. For possibility of mild COPD exacerbation, she was started on DuoNeb nebulization, Solu-Medrol, incentive spirometry. Her hypoxia resolved. She is discharged on burst prednisone total 5 days and she had first dose today in the hospital. Serum magnesium and phosphorus level normal. She takes Spiriva at home. She states she has mild COPD and follows PCP. Follow-up with meat processor, Dr. Alcocer in 3 to 4 weeks for outpatient evaluation of PFT and PE. She states she regularly gets PFT as she is enrolled on clinical study for COPD for last 4 years. #bilateral PE: Continue therapeutic dose of Eliquis. She had work-up for PE done during previous hospitalization, echo EF 60% with normal right ventricular size and systolic function. No evidence of right ventricular strain. Continue Eliquis for at least 6 months. #Kalemia: Potassium is 3.4. Repeat K3.8. #Incidental thyroid nodule: Thyroid nodule was noted in the left lobe and was 1.8 cm. Will need follow-up ultrasound on outpatient basis. #Hypertension: Continue hydrochlorothiazide. Blood pressure is controlled #NILDA: On BiPAP nightly. Discharge medication reconciliation done. Discharge follow-up instructions completed. Discharge process discussed with the patient and all questions were answered to patient's satisfaction. Walking pulse oximetry does not show hypoxia. Total time spent, exact 35 minutes on discharge meds reconciliation, examination, coordination of care with nurses and ancillary staff, review of imaging and blood test and discussion with the patient on follow-up instructions Patient Problems: Active and Suspected Problems (Last Reviewed 04/01/20 @ 13:[address] Danilo Crenshaw MD) Hypoxia (Acute) Near syncope (Acute) Dehydration (Acute) Pulmonary embolism (Acute) Objective: Patient feels palpitation after DuoNeb nebulization. Her heart rate also goes up 104 after nebulization and hearing aid consultant shows PVCs. She had 14 beats of PVCs sensitive of NSVT after DuoNeb nebulization. She had similar symptoms of palpitations after albuterol at home therefore does not take albuterol inhaler. She was also on the trial for COPD for last 4 years and is being followed by her PCP Dr. Sahu. Physical exam General: Alert, Oriented x3, Cooperative HEENT: Atraumatic, PERRLA, EOMI, Normocephalic Oral: No Gingival or Mucosal Lesions/ Ulcerations Neck: Supple, No JVD, Negative Carotid Bruits Lungs: Air entry diminished in bilateral lung bases. No crepitation/rhonchi/wheezing. Not hypoxic. Pulse ox 98% on room air and on ambulation 92% on room air. Cardiovascular: Regular rate, Regular Rhythm, Normal S1, Normal S2, No murmurs Abdomen: Bowel Sounds Present, Soft, Non Tender, Non-Distended : No renal angle tenderness. No suprapubic tenderness. Extremities: No edema, Capillary Refill Less than 3 Seconds Skin: No rashes, No breakdown Musculoskeletal: No Tenderness to Palpation of Joints or Extremities Neurological: Cranial nerves II-XII grossly intact, Deep Tendon Reflexes 2+/4 and Symmetrical, Neuro grossly intact Psych/Mental Status: Normal Affect, Appropriate. - Physical Exam Vitals/I&O's: Vital Signs Temp Pulse Resp BP Pulse Ox 98.1 F 104 H 16 116/63 96 06/21/20 08:47 06/21/20 08:47 06/21/20 08:47 06/21/20 08:47 06/21/20 08:47 Oxygen Flow Rate (L/min) 1 Oxygen Delivery Method Room Air Weight: 135 lb 3.2 oz Body Mass Index (BMI) 26.4 Intake and Output for Last 24 Hours 06/19/20 06/20/20 06/21/20 23:59 23:59 23:59 Intake Total 1240 / 1240 550 / 550 Balance 1240 / 1240 550 / 550 Laboratory Results 06/20/20 07:38: Phosphorus 3.1, Magnesium 2.0 Current Medications Apixaban (Apixaban 5 Mg Tablet) 10 mg PO BID [facility] Stop: 06/25/20 22:01 Last Admin: 06/21/20 08:52 Dose: 10 mg Documented by: Apixaban (Apixaban 5 Mg Tablet) 5 mg PO BID [facility] Cholecalciferol (Cholecalciferol (Vit D3) 1,000 Unit (25mcg)) 1,000 unit PO DAILY [facility] Last Admin: 06/21/20 08:53 Dose: 1,000 unit Documented by: Hydrochlorothiazide (Hydrochlorothiazide 25 Mg Tablet) 25 mg PO DAILY [facility] Last Admin: 06/21/20 08:53 Dose: 25 mg Documented by: Ipratropium Bigler (Ipratropium 0.5 Mg/2.5 Ml Solution) 0.5 mg INHALATION Q8H.RT [facility] Last Admin: 06/21/20 06:45 Dose: 0.5 mg Documented by: Nitroglycerin (Nitroglycerin (Inpatient Use) 0.4 Mg Tab.Subl) 0.4 mg SUBLINGUAL Q5M PRN PRN Reason: CARDIAC/CHEST PAIN Ondansetron HCl (Ondansetron 4 Mg/2 Ml Vial) 4 mg IV Q8H PRN PRN PRN Reason: NAUSEA/VOMITING Prednisone (Prednisone 20 Mg Tablet) 40 mg PO DAILY@0800 [facility] Last Admin: 06/21/20 08:52 Dose: 40 mg Documented by: Sodium Chloride (0.9% Saline Lock 10 Ml Syringe) 10 - 40 ml IV UD PRN PRN Reason: SALINE FLUSH Last Admin: 06/20/20 23:27 Dose: 10 ml Documented by: Discharge Activity: May Not Drive - For 1 week Call your doctor if you observe: Fever of 101 or Higher, Coldness, Increased Pain, Numbness or Tingling, Change in Color, Inability to urinate, Inability to have a bowel movement, Using more than one pad per hour, Shortness of breath, Dizziness, Fainting spells, Swelling in the ankles, Chest pain, Increased palpitations (irregular heartbeat), Calf discomfort, Uncontrolled pain Home Medications: Medications to take at Discharge Hydrochlorothiazide [Hctz] 25 mg PO DAILY 06/17/20 Tiotropium Bigler [Spiriva] 18 mcg INHALATION DAILY 06/17/20 Cholecalciferol (Vitamin D3) [Vitamin D3] 1,000 unit PO DAILY 06/19/20 Apixaban [Eliquis] 10 mg PO BID #70 tab.ds.pk 06/21/20 predniSONE tablet 40 mg PO DAILY@0800 #4 tab 06/21/20 Following Prescriptions Were Given to Patient: predniSONE tablet 40 mg PO DAILY@0800 #4 tab Transmission Status: Received by [facility] Primary Care Physician: Isabella Sahu DO [Primary Care Provider] - Please follow up with your Primary Care Physician in: In 1 week Please Follow Up With: Heriberto Alcocer DO When: IN 3-4 WEEKS Medical Necessity - Tobacco Use Smoking Status: Former smoker Tobacco Use: Cigarettes Meaningful Use Info Meaningful Use Diagnoses (Choose all that apply): None applicable OBSV E&M: 42896 Observation care discharge
[2020-06-21 10:25] VITALS: O2SAT 92; O2SAT 98
== END 2020-06-21 09:19 | disposition home or self-care (01) ==
LOC: ED 15:17 → PCU 15:33
PROVIDERS: Admitting Provider Student in an Organized Health Care Education/Training Program; Emergency Provider Emergency Medicine; PCP Internal Medicine; Visit Provider Internal Medicine
DX: I26.99 Other pulmonary embolism without acute cor pulmonale (principal); E86.0 Dehydration; R55 Syncope and collapse; R09.02 Hypoxemia; E04.1 Nontoxic single thyroid nodule; G47.33 Obstructive sleep apnea (adult) (pediatric); I10 Essential (primary) hypertension; J44.9 Chronic obstructive pulmonary disease, unspecified; Z79.899 Other long term (current) drug therapy; Z86.711 Personal history of pulmonary embolism; M19.90 Unspecified osteoarthritis, unspecified site; I25.10 Atherosclerotic heart disease of native coronary artery without angina pectoris; Z87.891 Personal history of nicotine dependence
CPT/HCPCS: 36415; 71046; 80048; 81001; 83735; 84100; 85025; 93005; 94640; 96361; 96374; 96376; 99218; 99285; J7030; A4216; G0378

== ENCOUNTER → 2020-07-01 10:51 | Outpatient (CLI) | payer MEDICARE, SELFPAY ==
[2020-04-09 06:24] VITALS: BMI 25.7
[2020-06-19 16:38] VITALS: BMI 26.4
--- NOTE | 2020-07-01 10:52 | BI_ITS ---
MAMMOGRAPHY - BILATERAL SCREENING REASON FOR EXAM: Female, 75 years old. Routine annual screening examination. PERTINENT HISTORY: Non-contributory. TECHNIQUE: Digital bilateral breast omid (3D mammographic acquisition) in the CC and MLO projections. 2-D mediolateral oblique (MLO) and craniocaudad (CC) views of both breasts were obtained. CAD: Full Field Digital Mammography with Computer Added Detection was performed. COMPARISON: Comparison is made with prior study dated 05/31/2019 and 05/30/2018. FINDINGS: Breast Composition: There are scattered areas of fibroglandular density. There are no dominant masses or suspicious calcifications. No other significant abnormalities are identified. There has been no significant change since the prior study. BI/SCREEN MAMM (CAD) W/OMID BILAT IMPRESSION: Stable bilateral screening mammogram. Yearly follow-up mammogram recommended. (A) ASSESSMENT CATEGORY: BIRADS Category 1: Negative. A letter regarding these results will be sent to the patient by the facility within 30 days. Approximately 10% of breast cancers are not detected by mammography. A normal mammogram should not delay biopsy of a clinically suspicious abnormality. [id number] Electronically Signed: Samuel Soriano, at 11:56 EST , Service support ,
--- NOTE | 2020-07-01 10:57 | BD_ITS ---
STUDY: DUAL ENERGY X-RAY ABSORPTIOMETRY / DXA REASON FOR EXAM: Female, 75 years old. Age of ana cristina 40. Pat is 138.8# and 61 and quot; a loss of 2 and quot; per pat. Past hx of smoking for 25 yrs 20 cigs a day. Past hx of using Actonel and Fosamax. Has had steroids off and on. Takes calcium supplements. Little exercising. Hx of a left wrist fx. TECHNIQUE: Bone Mineral Density (BMD) measurements of lumbar spine and bilateral hips were obtained. COMPARISON: Comparison is made with prior examination dated 08/30/2016. FINDINGS: Lumbar Spine (L1-L4): g/cm2 (1.188) / T-score (0.1) / Z-score (1.9) Findings are suggestive of normal bone density with a low fracture risk. Increased kyphosis. Left Femur Total: g/cm2 (0.75) / T-score (-1.8) / Z-score (0.0) Left Femoral Neck: g/cm2 (0.871) / T-score (-1.2) / Z-score (0.8) Right Femur Total: g/cm2 (0.809) / T-score (-1.6) / Z-score (0.3) Right Femoral Neck: g/cm2 (0.863) / T-score (-1.3) / Z-score (0.7) The T-Scores on the most recent prior examination were: Lumbar Spine (L1-L4): There has been worsening of bone density since the previous examination. Left Femur Total: which represents a worsening of 5.4%. Right Femur Total: which represents a worsening of 3%. BD/Dexa Bone Density Study IMPRESSION: The patient is considered osteopenic as outlined below according to World Gilberto Organization (WHO) criteria with a moderate fracture risk. There has been worsening of bone density since the previous examination. Reference Information: The T-score is the number of standard deviations above or below the standard which is normal for young adults at their peak bone mineral density. The World Health Organization (WHO) interprets the T-scores as follows: Above -1 Normal bone density Between -1 and -2.5 Osteopenia Equal to / or below -2.5 Osteoporosis As a practical clinical guideline, osteopenia may be graded as follows: Mild -1 through -1.5 Moderate -1.6 through -2.0 Severe -2.1 through -2.4 The Z-score is the number of standard deviations above or below age-matched controls. A Z-score of less than -1.5 would be considered abnormal. References: 1. NIH Osteoporosis and Related Bone Diseases www osteo.org 2. International Society for Clinical Densitometry www iscd.org 3. National Osteoporosis Foundation www nof.org Electronically Signed: Samuel Soriano, at 15:48 EST , Service support ,
== END ==
PROVIDERS: PCP Internal Medicine; Referring Provider Internal Medicine; Visit Provider Internal Medicine
DX: Z78.0 Asymptomatic menopausal state (principal); Z12.31 Encounter for screening mammogram for malignant neoplasm of breast
CPT/HCPCS: 77063; 77067; 77080

== ENCOUNTER → 2020-09-30 10:01 | Outpatient (CLI) | payer MEDICARE, SELFPAY ==
[2020-06-19 16:38] VITALS: BMI 26.4
--- NOTE | 2020-09-30 10:06 | US_ITS ---
STUDY: THYROID ULTRASOUND REASON FOR EXAM: Female, 75 years old. THYROID NODULE TECHNIQUE: Ultrasound evaluation of the thyroid was performed with real-time and static french-scale imaging. COMPARISON: 05/31/2019 FINDINGS: RIGHT LOBE: The right lobe of the thyroid gland measures 4.6 x 1.2 x 1.4 cm. There is a heterogeneous echotexture. Numerous nodules of the right thyroid. The 4 largest nodules are: 1.1 x 0.9 x 0.7 cm solid, isoechoic primarily, well defined and wider than tall. 0.8 x 0.7 x 0.4 cm, complex cystic and solid, well defined and wider than tall. 0.8 x 0.7 x 0.4 cm, complex cystic and solid, well defined and wider than tall. 0.6 x 0.5 x 0.5 cm, complex cystic and solid, well defined and wider than tall. LEFT LOBE: The left lobe of the thyroid gland measures 5.2 x 2.3 x 2.3 cm. There is a heterogeneous echotexture. Multiple nodules of the left thyroid: 2.6 x 2.0 x 1.8 cm complex cystic and solid, well defined and wider than tall. 2.5 x 1.7 x 0.9 cm complex cystic and solid, well defined and wider than tall. 0.9 x 1.0 x 1.8 cm complex cystic and solid, well defined than taller than wide. ISTHMUS: The isthmus measures 0.2 centimeter. US/Thyroid IMPRESSION: Numerous bilateral thyroid nodules not substantially changed on [id number] comparison. Electronically Signed: Maryana Osorio MD at 17:09 EST , Service support ,
== END ==
PROVIDERS: PCP Internal Medicine; Referring Provider Internal Medicine; Visit Provider Internal Medicine
DX: E04.1 Nontoxic single thyroid nodule (principal)
CPT/HCPCS: 76536

== ENCOUNTER 2021-06-20 16:32 | Emergency (ER) | payer MEDICARE, SELFPAY ==
[2021-06-20 16:32] VITALS: BP 154/82; PULSE 98; RESP 18; TEMP 36.6; O2SAT 98; BMI 27.4
--- NOTE | 2021-06-20 16:44 | CT_ITS ---
STUDY: CT BRAIN WITHOUT CONTRAST REASON FOR EXAM: Female, 76 years old. Fall trauma laceration headache after injury RADIATION DOSAGE (If Supplied By Facility): CTDIvol = ( 44.99 ) mGy, DLP = ( 694.87 ) mGycm TECHNIQUE: Transaxial CT imaging of the brain was performed without administration of intravenous contrast material. Individualized dose optimization techniques were used for this CT. COMPARISON: No relevant priors. FINDINGS: Brain parenchyma is without focal lesions, mass effect, acute intracranial hemorrhage, extra parenchymal fluid collections, hydrocephalus or herniation. The skull is intact. CT/Brain/Head without Contrast IMPRESSION: 1. Age normal brain. Electronically Signed: Rut Mckeon MD at 17:21 EST Tel , Service support ,
--- NOTE | 2021-06-20 16:45 | CT_ITS ---
STUDY: CT CERVICAL SPINE WITHOUT CONTRAST REASON FOR EXAM: Female, 76 years old. Fall trauma laceration to right parietal area on blood thinners RADIATION DOSAGE (If Supplied By Facility): CTDIvol = ( 18.79 ) mGy, DLP = ( 353.15 ) mGycm TECHNIQUE: High resolution transaxial imaging was performed without contrast material. Sagittal and coronal images were reconstructed. Individualized dose optimization techniques were used for this CT. COMPARISON: 19 January 2021 FINDINGS: There is no acute fracture or subluxation. There are chronic extensive degenerative changes. Renal cervical junction is intact. There is reversal of lordosis with grade 1 anterior listhesis of C4 on C5, less than 3 mm. Thecal sac is mildly compressed at C5-C6. Foramina are severely stenotic at C5-C6 with mild additional scattered stenoses. Lungs are moderately emphysematous. CT/Spine Cervical without Contras IMPRESSION: 1. No acute osseous injury. 2. 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 Electronically Signed: Rut Mckeon MD at 17:34 EST Tel , Service support ,
--- NOTE | 2021-06-20 18:17 | ED.VIS.FALL ---
HPI HPI - Fall History of Present Illness Chief Complaint: Fall Narrative Narrative: Patient was in her garage, she tripped and hit the back of her head sustaining scalp laceration. No loss of consciousness no nausea or vomiting no vision changes. She is on Eliquis. He sustained no other injury, she denies leg pain extremity pain, she does have some buttock pain. PFSH PFS Medical History (Updated 06/20/21 @ 18:[address] Wyatt Smith MD) Anxiety and depression Arthritis CAD (coronary artery disease) Cholelithiasis COPD (chronic obstructive pulmonary disease) HTN (hypertension) Pulmonary embolism RUQ pain Home Medications hydrochlorothiazide 25 mg PO DAILY 06/17/20 [History Last Taken 06/19/20] tiotropium bromide 18 mcg INHALATION DAILY 06/17/20 [History Last Taken Unknown] cholecalciferol (vitamin D3) 1,000 unit PO DAILY 06/19/20 [History Last Taken 06/19/20] apixaban 10 mg PO BID #70 tab.ds.pk 06/21/20 [Rx Last Taken 06/19/20] prednisone 40 mg PO DAILY@0800 #4 tab 06/21/20 [Rx Last Taken Unknown] Allergy/AdvReac Type Severity Reaction Status Date / Time morphine Allergy Nausea/Vom/ Verified 06/20/21 16:32 Diarrhea Surgical History (Updated 06/20/21 @ 18:06 by Valeriy Menjivar) history bilateral CTR history left leg vein stripping History of tonsillectomy and adenoidectomy History of total left knee replacement History of tubal ligation Hx of cholecystectomy Social History (Updated 04/18/20 @ 11:[address] Danilo Crenshaw MD) Smoking Status: Former smoker alcohol intake: current alcohol intake frequency: a few times a month substance use type: does not use ROS ROS ED ROS Narrative Social: Noncontributory Medications: Reviewed Past medical history: Reviewed Review of systems General: Head injury as in HPI HEENT: No facial injury Neck: No neck pain Cardiovascular: Patient denies any chest pain or palpitations Chest wall: No chest wall contusions Respiratory: There is no shortness of breath GI: There is no nausea vomiting diarrhea or abdominal pain, no abdominal wall contusions Skin: No lacerations or abrasions Neurological: Patient has no memory loss, confusion, or any focal weakness Psychiatric: No recent behavioral changes Back: No back pain, no problems with ambulation Musculoskeletal: Some buttock pain, otherwise no other injuries All other systems are reviewed and normal EXAM Physical Exam Narrative Exam Narrative: Physical exam Vitals reviewed General: Does not appear in significant distress, no obvious injuries HEENT: No facial injury Head: 3 cm posterior scalp laceration on the right no step-offs Eyes: Extraocular movements intact Neck: No C-spine tenderness with full range of motion Heart: Regular rate normal pulses Chest wall: No chest wall pain Lungs clear lungs bilaterally with normal inspiration and expiration without tachypnea GI: Abdomen is soft and nontender there is no mass no guarding no abdominal wall contusion : Stable pelvis Musculoskeletal: Moves all extremities without any signs of trauma. Some soft tissue buttock pain but no pain in the sacrum or coccyx or pelvic bones. Skin: Scalp laceration as above otherwise no other contusions or abrasions Neurological: Patient is alert and oriented with no focal deficits Const Vital Signs: 06/20/21 16:32 Temperature 98 F Temperature Source Temporal Pulse Rate 98 Respiratory Rate 18 Blood Pressure 154/82 H Blood Pressure Mean 106 Pulse Ox 98 Oxygen Delivery Method Room Air MDM MDM MDM Narrative Medical decision making narrative: Procedure note: Verbal consent Scalp laceration was 3 cm, Mandy for wound cleaning. 3 jovani were placed. Patient tolerated procedure well Clinical decision making: Patient has normal CT of the head and C-spine she appears well she does not need any further testing she wants to be discharged this is reasonable. Radiography Diagnostic Testing: Clinical Impression(s) from Imaging Studies Brain CT 06/20/21 16:44 IMPRESSION: 1. Age normal brain. Electronically Signed: Rut Mckeon MD at 17:21 EST Tel , Service support , Cervical Spine CT 06/20/21 16:45 IMPRESSION: 1. No acute osseous injury. 2. 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 Electronically Signed: Rut Mckeon MD at 17:34 EST Tel , Service support , Discharge Plan Triage Chief Complaint: Fall ED Provider: Wyatt Smith Dx/Rx/DC Orders Clinical Impression: Concussion without loss of consciousness, Scalp laceration Instructions: Trauma Head, ED Laceration Scalp Stitches or Jovani Prescriptions: No Action hydrochlorothiazide 25 MG tablet 25 mg PO DAILY RF: 0 tiotropium bromide 18 MCG capsule, w/inhalation device 18 mcg INHALATION DAILY RF: 0 cholecalciferol (vitamin D3) 25 MCG capsule 1,000 unit PO DAILY RF: 0 prednisone 20 MG tablet 40 mg PO DAILY@0800 Qty: 4 RF: 0 apixaban 5 MG tablets,dose pack 10 mg PO BID Qty: 70 RF: 0 Primary Care Provider: Isabella Sahu Referrals: Isabella Sahu DO [Primary Care Provider] - 10 Day for suture removal Disposition Disposition: Home, Self Care
== END 2021-06-20 18:27 | disposition home or self-care (01) ==
LOC: ED 18:23
PROVIDERS: Emergency Provider Emergency Medicine; PCP Internal Medicine
DX: S06.0X0A Concussion without loss of consciousness, initial encounter (principal); S01.01XA Laceration without foreign body of scalp, initial encounter; W01.0XXA Fall on same level from slipping, tripping and stumbling without subsequent striking against object, initial encounter; Y93.9 Activity, unspecified; Y92.008 Other place in unspecified non-institutional (private) residence as the place of occurrence of the external cause; Y99.9 Unspecified external cause status; I25.10 Atherosclerotic heart disease of native coronary artery without angina pectoris; I10 Essential (primary) hypertension; J44.9 Chronic obstructive pulmonary disease, unspecified; M19.90 Unspecified osteoarthritis, unspecified site; Z79.899 Other long term (current) drug therapy; Z79.01 Long term (current) use of anticoagulants; Z87.891 Personal history of nicotine dependence; Z86.711 Personal history of pulmonary embolism
CPT/HCPCS: 12002; 70450; 72125; 99282

== ENCOUNTER → 2021-06-30 16:07 | Outpatient (CLI) | payer MEDICARE, SELFPAY ==
--- NOTE | 2021-06-30 16:10 | RAD_ITS ---
STUDY: X-RAY - LEFT HAND, ATTENTION FOURTH FINGER REASON FOR EXAM: Female, 76 years old. swelling and pain for a long time, left 4th finger rule out gout TECHNIQUE: 3 view(s) of the finger were obtained. COMPARISON: None. FINDINGS: There is severe degenerative narrowing of the PIP and DIP joints of the fourth digit with small erosions, cortical osteophytes, and multiple loose bodies particularly around the PIP joint. Mild to moderate soft tissue swelling is also present. Normal visualized aspects of the fourth metacarpal bone. Mild osteophyte formation is seen in the head of the adjacent metacarpal bone. No fractures are present. 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
== END ==
PROVIDERS: PCP Internal Medicine; Referring Provider Internal Medicine; Visit Provider Internal Medicine
DX: M79.89 Other specified soft tissue disorders (principal)
CPT/HCPCS: 73140

== ENCOUNTER 2021-09-22 12:24 | Outpatient (CLI) | payer MEDICARE, SELFPAY ==
--- NOTE | 2021-09-22 12:26 | BI_ITS ---
MAMMOGRAPHY - BILATERAL SCREENING REASON FOR EXAM: Female, 76 years old. Routine annual screening examination. PERTINENT HISTORY: Non-contributory. TECHNIQUE: Digital bilateral breast omid (3D mammographic acquisition) in the CC and MLO projections. 2-D mediolateral oblique (MLO) and craniocaudad (CC) views of both breasts were obtained. CAD: Full Field Digital Mammography with Computer Added Detection was performed. COMPARISON: Comparison is made with prior study dated 07/01/2020 and 05/31/2019. FINDINGS: Breast Composition: There are scattered areas of fibroglandular density. There are no dominant masses or suspicious calcifications. No other significant abnormalities are identified. There has been no significant change since the prior study. BI/SCRN MAMM (CAD)W/OMID BILAT IMPRESSION: Stable bilateral screening mammogram. Yearly follow-up mammogram recommended. (A) ASSESSMENT CATEGORY: BIRADS Category 1: Negative. A letter regarding these results will be sent to the patient by the facility within 30 days. Approximately 10% of breast cancers are not detected by mammography. A normal mammogram should not delay biopsy of a clinically suspicious abnormality. [id number] Electronically Signed: Samuel Soriano MD at 13:14 EST ,
== END 2021-09-22 23:59 | disposition home or self-care (01) ==
PROVIDERS: PCP Internal Medicine; Visit Provider Internal Medicine
DX: Z12.31 Encounter for screening mammogram for malignant neoplasm of breast (principal)
CPT/HCPCS: 77063; 77067

== ENCOUNTER → 2022-01-14 | Outpatient (CLI) | payer MEDICARE, SELFPAY ==
--- NOTE | 2022-01-14 12:36 | US_ITS ---
STUDY: THYROID ULTRASOUND REASON FOR EXAM: Female, 76 years old. NODULES TECHNIQUE: Ultrasound evaluation of the thyroid was performed with real-time and static french-scale imaging. COMPARISON: Sep 30 2020 10:12am FINDINGS: RIGHT LOBE: The right lobe of the thyroid gland measures 4.5 x 1.3 cm. There is a heterogeneous echotexture. Multiple nodules. Nodule 1 is cystic and solid and heterogeneous. This measures 11 x 9 x 7 mm. Nodule 2 is solid and cystic and measures 9 x 7 x 5 mm. Nodule 3 is solid and cystic and measures 5 x 4 x 4 mm. LEFT LOBE: The left lobe of the thyroid gland measures 4.4 x 2.2 cm. There is a heterogeneous echotexture. Multiple nodules. Nodule 1 is solid and cystic and measures 11 x 8 x 9 mm. Nodule 2 is solid and cystic and measures 23 x 15 x 11 mm. Nodule 3 is solid and cystic and measures 22 x 18 x 18 mm. ISTHMUS: The isthmus measures 2 mm. Enlarged right jugular vein. US/Thyroid IMPRESSION: Overall stable multiple bilateral thyroid nodules. #1 RIGHT nodules. This nodule is solid or almost completely solid, hyperechoic or isoechoic, [id number], smoothly marginated and contains no echogenic foci. TI-RADS points: 3. TI-RADS category: TR3. This nodule is mildly suspicious but no FNA or follow-up is necessary given the small size of this nodule. #2 right nodule: This nodule is mixed cystic and solid, hypoechoic, [id number], smoothly marginated and contains no echogenic foci. TI-RADS points: 3. TI-RADS category: TR3. This nodule is mildly suspicious but no FNA or follow-up is necessary given the small size of this nodule. #3 right nodule: This nodule is solid or almost completely solid, hyperechoic or isoechoic, [id number], smoothly marginated and contains no echogenic foci. TI-RADS points: 3. TI-RADS category: TR3. This nodule is mildly suspicious but no FNA or follow-up is necessary given the small size of this nodule. There are left nodules. This nodule is mixed cystic and solid, hypoechoic, [id number], smoothly marginated and contains no echogenic foci. TI-RADS points: 3. TI-RADS category: TR3. This nodule is mildly suspicious. Recommend follow-up thyroid ultrasounds at 2 and 4 years. Electronically Signed: Tae Townsend MD at 18:02 EDT ,
== END | disposition home or self-care (01) ==
LOC: US 12:34
PROVIDERS: PCP Internal Medicine; Referring Provider Internal Medicine; Visit Provider Internal Medicine
DX: E04.1 Nontoxic single thyroid nodule (principal)
CPT/HCPCS: 76536

== ENCOUNTER 2022-03-04 17:30 | Outpatient (CLI) | payer MEDICARE, SELFPAY ==
[2022-03-04 17:40] VITALS: BP 135/79; PULSE 86; RESP 16; TEMP 36.6; O2SAT 100; BMI 26.4
[2022-03-04] MEDS: 0.9% Saline Lock 10 ML Syringe IV (17:58)
[2022-03-04] MEDS: BEBTELOVIMAB 175 MG/2 ML VIAL IV (17:58)
[2022-03-04 18:30] VITALS: BP 120/73; PULSE 78; RESP 16; TEMP 36.6; O2SAT 96
[2022-03-04 18:49] VITALS: BP 115/71; PULSE 96; RESP 16; TEMP 36.6; O2SAT 97
== END 2022-03-04 19:02 | disposition home or self-care (01) ==
LOC: MS2OUT 17:31 → MS2 17:33
PROVIDERS: PCP Internal Medicine; Referring Provider Nurse Practitioner Adult Health; Visit Provider Nurse Practitioner Adult Health
DX: U07.1 COVID-19 (principal)
CPT/HCPCS: M0222; Q0222; A4216

== ENCOUNTER → 2022-08-09 | Outpatient (CLI) | payer MEDICARE, SELFPAY ==
--- NOTE | 2022-08-09 09:00 | STRESSREP_ITS ---
Stress Test Report Date: 08-09-2022 Procedure: Exercise tolerance test/imaging study Indications: Chest pain Consent: Per the patient Procedure: The patient exercised on a Mendoza protocol for 3 minutes and 45 seconds completing Stage I and 45 seconds of Stage II achieving a peak heart rate of 148 bpm (104% predicted maximal heart rate) with resting blood pressure of 122/70 mmHg and a peak blood pressure 162/78 mmHg and a peak MET capacity of 6 METs. The baseline ECG demonstrated normal sinus rhythm; septal CO of indeterminate age cannot be excluded. The peak exercise ECG demonstrated no obvious ECG changes. There was a rare PVC during exercise. The functional capacity was considered fair. There was no complaint of chest discomfort during exercise or recovery. The examination was discontinued secondary to dyspnea and leg fatigue. Impression: 1. Technically adequate (percent predicted maximal heart rate greater than 85%) exercise tolerance test 2. Peak exercise ECG with no obvious ECG changes 3. There was a rare PVC during exercise 4. Nuclear images pending Myocardial perfusion imaging study: Technique: The patient was injected with 11.8 mCi of technetium 99m Cardiolite and subsequently rest SPECT Cardiolite nuclear imaging was obtained in the horizontal long, vertical long, and short axis views. The patient exercised on a Mendoza protocol for 3 minutes and 45 seconds completing Stage I and 45 seconds of Stage II achieving a peak heart rate of 148 bpm (104% predicted maximal heart rate) with resting blood pressure of 122/70 mmHg and a peak blood pressure 162/78 mmHg and a peak MET capacity of 6 METs. The patient was injected with 33.5 mCi of technetium 99m Cardiolite and subsequently stress SPECT Cardiolite nuclear imaging was obtained in the horizontal long, vertical long, and short axis views. A gated Cardiolite study at peak stress was obtained. Interpretation: Rest and stress SPECT Cardiolite nuclear imaging status post realignment, normalization, and attenuation correction, demonstrates relative uniform tracer uptake and myocardial perfusion appearing within normal limits. There is end systolic thickening and brightening. The gated Cardiolite study demonstrates myocardial thickening and inward wall motion. The reported LVEF is 77%. Impression: 1. Rest and stress SPECT Cardiolite nuclear imaging demonstrate relative uniform tracer uptake and myocardial perfusion appearing within normal limits. 2. The gated Cardiolite study reports an LVEF of 77%. This note was generated with [employer] software. It may contain incorrect words, spelling, and punctuation that were not noted in checking the note before signing.
== END | disposition home or self-care (01) ==
LOC: CVS 06:31
PROVIDERS: PCP Internal Medicine; Visit Provider Internal Medicine
DX: R07.89 Other chest pain (principal)
CPT/HCPCS: 78452; 93017; A9500; A4216

== ENCOUNTER → 2022-09-27 | Outpatient (CLI) | payer MEDICARE, SELFPAY ==
--- NOTE | 2022-09-27 13:26 | BI_ITS ---
MAMMOGRAPHY - BILATERAL SCREENING REASON FOR EXAM: Female, 77 years old. Routine annual screening examination. PERTINENT HISTORY: Non-contributory. TECHNIQUE: Digital bilateral breast omid (3D mammographic acquisition) in the CC and MLO projections. 2-D mediolateral oblique (MLO) and craniocaudad (CC) views of both breasts were obtained. CAD: Full Field Digital Mammography with Computer Added Detection was performed. COMPARISON: Comparison is made with prior study dated 09/22/2021 and 07/01/2020. FINDINGS: Breast Composition: There are scattered areas of fibroglandular density. There are no dominant masses or suspicious calcifications. No other significant abnormalities are identified. There has been no significant change since the prior study. BI/SCRN MAMM (CAD)W/OMID BILAT IMPRESSION: Stable bilateral screening mammogram. Yearly follow-up mammogram recommended. (A) ASSESSMENT CATEGORY: BIRADS Category 1: Negative. A letter regarding these results will be sent to the patient by the facility within 30 days. Approximately 10% of breast cancers are not detected by mammography. A normal mammogram should not delay biopsy of a clinically suspicious abnormality. [id number] Electronically Signed: Samuel Soriano MD at 14:57 EST ,
--- NOTE | 2022-09-27 13:32 | BD_ITS ---
STUDY: DUAL ENERGY X-RAY ABSORPTIOMETRY / DXA REASON FOR EXAM: Female, 77 years old. [id number] -- postmenopausal TECHNIQUE: Bone Mineral Density (BMD) measurements of lumbar spine and bilateral hips were obtained. COMPARISON: Comparison is made with prior study dated July 01, 2020. FINDINGS: Lumbar Spine (L1-L4): g/cm2 (1.054) / T-score (0.1) / Z-score (2.7) Findings are suggestive of normal bone density with a low fracture risk. Left Femur Total: g/cm2 (0.766) / T-score (-1.4) / Z-score (0.6) Left Femoral Neck: g/cm2 (0.738) / T-score (-1.0) / Z-score (1.3) Right Femur Total: g/cm2 (0.739) / T-score (-1.7) / Z-score (0.4) Right Femoral Neck: g/cm2 (0.706) / T-score (-1.3) / Z-score (1.0) The T-Scores on the most recent prior examination were: Lumbar Spine (L1-L4): There has been improvement of bone density since the previous examination. Left Femur Total: which represents an improvement of 6.1%. Right Femur Total: which represents a worsening of 1.3%. BD/Dexa Bone Density Study IMPRESSION: The patient is considered osteopenic as outlined below according to World Gilberto Organization (WHO) criteria with a moderate fracture risk. There has been improvement of bone density since the previous examination. Reference Information: The T-score is the number of standard deviations above or below the standard which is normal for young adults at their peak bone mineral density. The World Health Organization (WHO) interprets the T-scores as follows: Above -1 Normal bone density Between -1 and -2.5 Osteopenia Equal to / or below -2.5 Osteoporosis As a practical clinical guideline, osteopenia may be graded as follows: Mild -1 through -1.5 Moderate -1.6 through -2.0 Severe -2.1 through -2.4 The Z-score is the number of standard deviations above or below age-matched controls. A Z-score of less than -1.5 would be considered abnormal. References: 1. NIH Osteoporosis and Related Bone Diseases www osteo.org 2. International Society for Clinical Densitometry www iscd.org 3. National Osteoporosis Foundation www nof.org Electronically Signed: Samuel Soraino MD at 13:25 EST ,
== END | disposition home or self-care (01) ==
LOC: OPBD 13:24
PROVIDERS: PCP Internal Medicine; Visit Provider Internal Medicine
DX: Z12.31 Encounter for screening mammogram for malignant neoplasm of breast (principal); Z78.0 Asymptomatic menopausal state
CPT/HCPCS: 77063; 77067; 77080

== ENCOUNTER → 2023-02-21 | Outpatient (CLI) | payer MEDICARE, SELFPAY ==
--- NOTE | 2023-02-21 12:55 | US_ITS ---
INDICATION: thyroid nodule EXAMINATION: Ultrasound US Thyroid (eg thyroid, parathyroid, parotid) TECHNIQUE: Nieto scale and color doppler imaging was performed of the thyroid gland. COMPARISON: January 14, 2022, September 30, 2020, May 31, 2019. FINDINGS: RIGHT THYROID LOBE: 4.7 x 1.5 x a 1.4 cm. Homogeneous echotexture with normal vascularity. [ Nodules: 1. Anterior superior 1.1 x 0.7 x 1.0 cm solid isoechoic nodule wider than tall with smooth margins and no calcifications, TI RAD 3, unchanged from September 30, 2020 2. Anterior mid 0.8 x 0.5 x 0.9 cm solid hypoechoic nodule wider than tall with smooth margins and no calcifications, TI RADS 4, unchanged from September 30, 2020 3. Posterior mid 0.7 x 0.5 x 0.5 cm solid heterogeneous hypoechoic nodule wider than tall with smooth margins and no calcifications, TI RADS 4, unchanged from May 31, 2019 LEFT THYROID LOBE: 5.3 x 2.0 x 2.1 cm. Homogeneous echotexture with normal vascularity. [No thyroid nodules are present. Nodules: 1. Posterior superior 1.1 x 0.9 x 0.9 cm mixed cystic solid hypoechoic nodule or pseudonodule wider than tall with ill-defined margins and no calcifications, TI RAD 3, unchanged from May 31, 2019 2. Anterior mid 1.7 x 1.1 x 1.6 cm mixed cystic solid hypoechoic nodule wider than tall with ill-defined margins and no calcifications, TI RAD 3, without suspicious change from May 31, 2019 3.. Posterior inferior 2.3 x 1.3 x 1.7 cm predominantly solid isoechoic nodule or pseudonodule wider than tall with ill-defined margin and no calcifications, TI RADS 3, unchanged from May 31, 2019 ISTHMUS: 0.3 cm. No thyroid nodules are present. US/Thyroid IMPRESSION: Multinodular goiter without suspicious change from May 31, 2019, largest 2.3 cm TI RAD 3 in the left thyroid. Additional 1 year follow-up ultrasound is recommended to establish 5 year stability per ACR TI RADS criteria. Electronically Signed: Hal Munoz MD at 9:25 EDT ,
== END | disposition home or self-care (01) ==
LOC: US 12:55
PROVIDERS: PCP Internal Medicine; Referring Provider Internal Medicine; Visit Provider Internal Medicine
DX: E04.1 Nontoxic single thyroid nodule (principal)
CPT/HCPCS: 76536

== ENCOUNTER → 2023-07-10 | Outpatient (CLI) | payer MEDICARE, SELFPAY ==
--- NOTE | 2023-07-10 16:40 | RAD_ITS ---
INDICATION: SOB -- STAT EXAMINATION/TECHNIQUE: X-RAY - XR Chest 2 Views COMPARISON: 06/07/2021. FINDINGS: Chronic lung changes. No definite acute lung findings. Tortuous and calcified thoracic aorta. The heart is not enlarged. No pleural effusion or pneumothorax. Degenerative changes of the thoracic spine. RAD/Chest PA and Lateral IMPRESSION: No acute radiographic abnormalities. Electronically Signed: Dex Saul MD at 18:31 EST ,
[2023-07-10 17:45] LABS: Basophil# 0.07 X10^3/uL; Basophil% 0.7 % (0-1); Eosinophil# 0.15 X10^3/uL; Eosinophils% 1.4 % (0-5); Hematocrit 40.9 % (37-47); Hemoglobin 12.6 g/dL (12.0-15.0); Lymphocyte % 23.2 % (19-41); Mean Corp Hgb Conc 30.8 g/dL (32-36); Mean Corpuscular Hgb 28.7 pg (27.0-32.0); Mean Corpuscular Volume 93.2 fL (81-99); Mean Platelet Vol. 8.6 fl (6.2-12.0); Monocyte# 0.73 X10^3/uL; Monocyte% 7.1 % (0-10); NRBC Flagged by Analyzer 0 % (0-5); Neutrophil # 6.96 X10^3/uL (2.7-7.7); Neutrophil % 67.2 % (47-70); Platelet Count 378 K/mm3 (150-450); RBC Distribution Width CV 13.7 % (11.6-14.6); Red Blood Count 4.39 M/mm3 (4.2-5.4); White Blood Count 10.4 K/mm3 (4.4-11.0)
[2023-07-10 18:13] LABS: D-Dimer Quantitative (DVT/PE) 0.76 FEU/ug/m (0.27-0.49)
[2023-07-10 18:26] LABS: ALB/GLOB Ratio 0.8 RATIO (0.9-2.4); AST(SGOT) 27 U/L (15-37); Alanine Aminotransfer ALT/SGPT 29 U/L (13-56); Albumin, Serum 3.3 g/dL (3.2-5.0); Alkaline Phosphatase 90 U/L (45-117); Anion Gap 8 (5-15); BUN 10 mg/dL (7-18); BUN/Creat Ratio 13.3 RATIO (10-20); Calcium,Total 9.1 mg/dL (8.5-10.1); Chloride 98 mmol/L (98-107); Creatinine, Serum 0.75 mg/dL (0.55-1.02); EST Glomerular Filtration Rate 79 mL/min (>60); Est Glom Filt Rate - Afr Amer 95 mL/min (>60); Globulin 4.4 g/dL (2.2-4.2); Glucose 103 mg/dL (74-106); Potassium 3.4 mmol/L (3.5-5.1); Protein, Total 7.7 g/dL (6.4-8.2); Sodium Level 134 mmol/L (136-145); Thyroid Stim Hormone (TSH) 1.71 uIU/mL (0.358-3.74); Troponin-I HS 19 pg/mL (3.0-54.0)
== END | disposition home or self-care (01) ==
PROVIDERS: PCP Internal Medicine; Referring Provider Internal Medicine; Visit Provider Internal Medicine
DX: R00.0 Tachycardia, unspecified (principal); R06.02 Shortness of breath
CPT/HCPCS: 36415; 71046; 80053; 84443; 84484; 85025; 85379

== ENCOUNTER → 2023-07-14 | Outpatient (CLI) | payer MEDICARE, SELFPAY ==
[2023-07-14 12:44] LABS: ALB/GLOB Ratio 0.8 RATIO (0.9-2.4); AST(SGOT) 18 U/L (15-37); Alanine Aminotransfer ALT/SGPT 28 U/L (13-56); Alkaline Phosphatase 93 U/L (45-117); Anion Gap 5 (5-15); BUN 11 mg/dL (7-18); BUN/Creat Ratio 16.7 RATIO (10-20); Calcium,Total 9.2 mg/dL (8.5-10.1); Chloride 97 mmol/L (98-107); Creatinine, Serum 0.66 mg/dL (0.55-1.02); EST Glomerular Filtration Rate 92 mL/min (>60); Est Glom Filt Rate - Afr Amer 111 mL/min (>60); Globulin 3.8 g/dL (2.2-4.2); Glucose 85 mg/dL (74-106); Potassium 3.8 mmol/L (3.5-5.1); Protein, Total 6.8 g/dL (6.4-8.2); Sodium Level 136 mmol/L (136-145)
== END | disposition home or self-care (01) ==
LOC: LABSPEC 12:10
PROVIDERS: PCP Internal Medicine; Referring Provider Internal Medicine; Visit Provider Internal Medicine
DX: R00.0 Tachycardia, unspecified (principal)
CPT/HCPCS: 80053

== ENCOUNTER → 2023-09-29 | Outpatient (CLI) | payer MEDICARE, SELFPAY ==
--- NOTE | 2023-09-29 08:32 | BI_ITS ---
MAMMOGRAPHY - BILATERAL SCREENING REASON FOR EXAM: Female, 78 years old. Routine annual screening examination. PERTINENT HISTORY: Non-contributory. TECHNIQUE: Digital bilateral breast omid (3D mammographic acquisition) in the CC and MLO projections. 2-D mediolateral oblique (MLO) and craniocaudad (CC) views of both breasts were obtained. CAD: Full Field Digital Mammography with Computer Added Detection was performed. COMPARISON: Comparison is made with prior study dated September 27, 2022 and June 22, 2022. FINDINGS: Breast Composition: The breasts are heterogeneously dense, which may obscure small masses. There are no dominant masses or suspicious calcifications. No other significant abnormalities are identified. There has been no significant change since the prior study. BI/SCRN MAMM (CAD)W/OMID BILAT IMPRESSION: Stable bilateral screening mammogram. Yearly follow-up mammogram recommended. (A) ASSESSMENT CATEGORY: BIRADS Category 1: Negative. A letter regarding these results will be sent to the patient by the facility within 30 days. Approximately 10% of breast cancers are not detected by mammography. A normal mammogram should not delay biopsy of a clinically suspicious abnormality. [id number] Electronically Signed: Samuel Soriano MD at 9:02 EST ,
== END | disposition home or self-care (01) ==
LOC: PSN 08:31
PROVIDERS: PCP Internal Medicine; Referring Provider Internal Medicine; Visit Provider Internal Medicine
DX: I49.3 Ventricular premature depolarization (principal); Z12.31 Encounter for screening mammogram for malignant neoplasm of breast
CPT/HCPCS: 77063; 77067; 93225; 93226

== ENCOUNTER → 2023-10-11 | Outpatient (CLI) | payer MEDICARE, SELFPAY ==
--- NOTE | 2023-10-11 12:53 | ART_ITS ---
Reason For Study: Claudication Procedure A bilateral upper extremity continuous wave Doppler with analog waveform analysis and segmental pressures. Left Segmental Pressures Left brachial= 137mmHg. Left ulnar= 151mmHg. Left radial= 157mmHg. Left digit = 138 mmHg. The left radial waveforms are triphasic. The left ulnar waveforms are triphasic. Right Segmental Pressures Right brachial= 140mmHg. Right ulnar= 148mmHg. Right radial= 151mmHg. Right digit = 122 mmHg. The right radial waveforms are triphasic. The right ulnar waveforms are triphasic. Indices The right wrist-brachial index by the ulnar artery is 1.06. The right wrist-brachial index by the radial artery is 1.08. The right digital-brachial index is 0.87. The left wrist-brachial index by the ulnar artery is 1.08. The left wrist-brachial index by the radial artery is 1.12. The left digital-brachial index is 0.99. VL/Upper Extremity Arterial Study Interpretation Summary Right wrist-brachial index 1.08, normal. Digit index and Doppler/PVR waveforms of the right arm normal at rest. Left wrist-brachial index 1.12, normal. Digit index and Doppler/PVR waveforms o f the left arm normal at rest. Ordering Physician: Hermila Peacock Referring Physician: HERMILA PEACOCK MD Performed By: Roxanne Kaminski RVT
== END | disposition home or self-care (01) ==
PROVIDERS: PCP Internal Medicine; Referring Provider Internal Medicine; Visit Provider Internal Medicine
DX: I73.9 Peripheral vascular disease, unspecified (principal); I49.3 Ventricular premature depolarization
CPT/HCPCS: 93923

== ENCOUNTER → 2023-10-13 | Outpatient (CLI) | payer MEDICARE, SELFPAY ==
[2023-10-13 17:14] LABS: ALB/GLOB Ratio 0.9 RATIO (0.9-2.4); AST(SGOT) 21 U/L (15-37); Alanine Aminotransfer ALT/SGPT 30 U/L (13-56); Albumin, Serum 3.3 g/dL (3.2-5.0); Alkaline Phosphatase 82 U/L (45-117); Anion Gap 4 (5-15); BUN 16 mg/dL (7-18); BUN/Creat Ratio 21.3 RATIO (10-20); Calcium,Total 9.2 mg/dL (8.5-10.1); Chloride 102 mmol/L (98-107); Creatinine, Serum 0.75 mg/dL (0.55-1.02); EST Glomerular Filtration Rate 79 mL/min (>60); Est Glom Filt Rate - Afr Amer 96 mL/min (>60); Globulin 3.5 g/dL (2.2-4.2); Glucose 70 mg/dL (74-106); Magnesium 2.1 mg/dL (1.6-2.6); Potassium 3.5 mmol/L (3.5-5.1); Protein, Total 6.8 g/dL (6.4-8.2); Sodium Level 138 mmol/L (136-145)
== END | disposition home or self-care (01) ==
LOC: MTLAB 11:23
PROVIDERS: PCP Internal Medicine; Referring Provider Internal Medicine Cardiovascular Disease; Visit Provider Internal Medicine Cardiovascular Disease
DX: E78.5 Hyperlipidemia, unspecified (principal); R00.0 Tachycardia, unspecified; Z86.711 Personal history of pulmonary embolism
CPT/HCPCS: 36415; 80053; 83735

== ENCOUNTER → 2023-11-20 | Outpatient (CLI) | payer MEDICARE, SELFPAY ==
--- NOTE | 2023-11-20 07:03 | ECHOD_ITS ---
Reason For Study: ABN EKG Procedure This was a 2D Doppler, Color Flow transthoracic echocardiogram. Exam performed in department. Left Ventricle Normal size and thickness. The left ventricular ejection fraction is 55 %. Stage 2 diastolic dysfunction. Right Ventricle Normal right ventricle. Atria There is mild biatrial dilatation. Mitral Valve Mild mitral annular calcification. Trivial mitral valve insufficiency. Tricuspid Valve Mild to moderate (1-2+) tricuspid valve insufficiency. Right ventricular systolic pressure estimated to be 48 mmHg. Aortic Valve Trisinus/trileaflet aortic valve. Trivial aortic valve insufficiency. Pulmonic Valve The pulmonic valve is not well visualized. Great Vessels Normal sized aortic root. Pericardium/Pleural No pericardial effusion. MMode/2D Measurements & Calculations LVIDd: 3.5 cm IVSd: 1.1 cm Ao root diam: 3.1 cm LVIDs: 2.7 cm LVPWd: 0.99 cm FS: 22.1 % LAV(MOD-bp): 74.4 ml LVAd ap4: 23.5 cm2 SV(MOD-sp4): 31.7 ml LAV(MOD-bp) Indexed: 46.4 ml/m2 LVLd ap4: 7.3 cm LAV(MOD-sp2): 83.7 ml EDV(MOD-sp4): 61.9 ml LAV(MOD-sp4): 58.1 ml EDV(sp4-el): 64.4 ml LVAs ap4: 14.3 cm2 LVLs ap4: 5.7 cm ESV(MOD-sp4): 30.3 ml ESV(sp4-el): 30.7 ml EF(MOD-sp4): 51.1 % EF(sp4-el): 52.4 % SV(sp4-el): 33.8 ml LA A4 area: 20.7 cm2 LA dimension(2D): 3.9 cm RA A4 area: 16.5 cm2 TAPSE: 2.2 cm Time Measurements MV dec time: 0.11 sec Doppler Measurements & Calculations MV E max mayo: 114.6 cm/sec Lat Peak E' Mayo: 5.4 cm/sec Med Peak E' Mayo: 7.6 cm/sec MV A max mayo: 92.6 cm/sec E/E' lat: 21.2 E/E' med: 15.0 MV E/A: 1.2 MV V2 max: 104.7 cm/sec Ao V2 max: 119.3 cm/sec MV max P.4 mmHg MV dec slope: 1037 cm/sec2 Ao max P.7 mmHg MV V2 mean: 70.1 cm/sec Ao V2 mean: 82.1 cm/sec MV mean P.3 mmHg Ao mean P.0 mmHg MV V2 VTI: 23.6 cm Ao V2 VTI: 28.2 cm AV (velocity ratio): 0.86 LV V1 max: 93.2 cm/sec PA V2 max: 88.8 cm/sec TR max mayo: 315.3 cm/sec LV V1 max P.5 mmHg PA V2 mean: 57.2 cm/sec TR max P.8 mmHg LV V1 mean P.0 mmHg LV V1 mean: 67.4 cm/sec LV V1 VTI: 24.1 cm ECHO/Echo Complete Interpretation Summary The left ventricular ejection fraction is 55 %. Stage 2 diastolic dysfunction. There is mild biatrial dilatation. Mild to moderate (1-2+) tricuspid valve insufficiency. Right ventricular systolic pressure estimated to be 48 mmHg. Mild mitral annular calcification. Ordering Physician: Stu Peters Referring Physician: Stu Peters Performed By: Jemima Ordoñez RCS
--- NOTE | 2023-11-20 10:25 | STRESSREP ---
Stress Test Report Date: 11/20/2023 Procedure: Exercise tolerance test/imaging study Indications: Arrhythmia Consent: Per the patient Procedure: The patient exercised on a Mendoza protocol for 5 minutes achieving a peak heart rate of 133 bpm (95% predicted maximal heart rate) with a peak blood pressure 170/88 mmHg and a peak MET capacity of 7.0 METs. The baseline ECG demonstrated sinus rhythm. The peak exercise ECG demonstrated sinus tachycardia with no ischemic changes. Occasional PVC noted in recovery. The functional capacity was considered average for age. There was no complaint of chest discomfort during exercise or recovery. The examination was discontinued secondary to target heart rate being achieved and dyspnea. The patient was injected with 11.0 mCi of technetium 99m Cardiolite and subsequently rest SPECT Cardiolite nuclear imaging was obtained in the horizontal long, vertical long, and short axis views. Post-exercise, the patient was injected with 36 point mCi of technetium 99m Cardiolite and subsequently stress SPECT Cardiolite nuclear imaging was obtained in the horizontal long, vertical long, and short axis views. A gated Cardiolite study at peak stress was obtained. Rest and stress SPECT Cardiolite nuclear imaging status post realignment, normalization, and attenuation correction, demonstrates the appearance of relative uniform tracer uptake and myocardial perfusion appearing within normal limits. There is end systolic thickening and brightening. The gated Cardiolite study demonstrates myocardial thickening and inward wall motion. The reported LVEF is 73%. Impression: 1. Technically adequate (percent predicted maximal heart rate greater than 85%) exercise tolerance test 2. Peak exercise ECG with no ischemic changes 3. Occasional PVC noted during recovery 4. Rest and stress SPECT Cardiolite nuclear imaging demonstrate relative uniform tracer uptake and myocardial perfusion appearing within normal limits. 5. The gated Cardiolite study reports an LVEF of 73%. 6. Hypertensive response to exercise. This note was generated with [employer] software. It may contain incorrect words, spelling, and punctuation that were not noted in checking the note before signing.
== END | disposition home or self-care (01) ==
LOC: CVS 07:02
PROVIDERS: PCP Internal Medicine; Referring Provider Internal Medicine Cardiovascular Disease; Visit Provider Internal Medicine Cardiovascular Disease
DX: R00.0 Tachycardia, unspecified (principal); R94.31 Abnormal electrocardiogram [ECG] [EKG]; R94.39 Abnormal result of other cardiovascular function study; E78.5 Hyperlipidemia, unspecified; Z86.711 Personal history of pulmonary embolism
CPT/HCPCS: 78452; 93017; 93306; A9500; A4216

== ENCOUNTER → 2024-04-24 | Outpatient (CLI) | payer MEDICARE, SELFPAY ==
--- NOTE | 2024-04-24 14:28 | US_ITS ---
INDICATION: thyroid nodule EXAMINATION: Ultrasound US Thyroid (eg thyroid, parathyroid, parotid) TECHNIQUE: Nieto scale and color doppler imaging was performed of the thyroid gland. COMPARISON: 02/21/2023 FINDINGS: RIGHT THYROID LOBE: 4.8 x 1.8 x 1.3 cm. There is diffuse heterogeneous echotexture and multiple nodules present. [Nodules as follows: 1. 1.2 x 1.0 x 0.8 cm, solid echotexture without cystic elements. Circumscribed lesion without abnormal blood flow. No calcifications. TI-RADS 3, without significant change. 2. 1.1 x 0.8 x 0.5 cm in the lower pole. Predominantly solid, moderately hypoechoic scattered cystic elements are present. Trace is central blood flow is noted. No evidence of calcifications. TI-RADS 4, without significant interval change. 3. 0.8 x 0.6 x 0.5 cm, predominantly solid, peripheral blood flow noted without central flow or calcifications. TI-RADS 3. 4. 0.8 x 0.8 x 0.6 cm in the lower pole. Hypoechoic. Peripheral blood flow noted. Well-circumscribed. No calcifications. TI-RADS 4 LEFT THYROID LOBE: 5.0 x 2.0 x 1.7 cm. Diffuse heterogeneous echotexture and multiple nodules present. No abnormal blood flow. [Nodules as follow: 1. Large confluent nodule measuring 1.3 x 1.8 x 1.2 cm. Poorly defined lobulated contour, and may represent confluence of multiple smaller nodules reported on prior exam. Focal areas of hyper and hypoechoic echotexture. Findings consistent with a TI-RADS 4 lesion which likely represents a confluence of multiple previous nodules. ISTHMUS: 3 mm. No thyroid nodules are present. US/Thyroid IMPRESSION: 1. Multinodular goiter. There does appear to be confluence of multiple complex nodules in the LEFT thyroid lobe with maximal dimension of 3.3 x 1.8 x 1.2 cm. Findings consistent with a TI-RADS 4 lesion. 2. Multiple stable TI-RADS 3 and TI-RADS 4 lesions in the RIGHT thyroid lobe. Consider consensus guidance for TI-RADS 4 lesion for follow-up as detailed. 3. TI-RADS 4: Moderately Suspicious: FNA if ? 1.5 cm; Follow if ? 1 cm at 1, 2, 3, and 5 y Additional Reference Guidance And Recommendations: According to consensus guidelines, spongiform thyroid nodules (i.e. nodules with an aggregation of multiple multicystic components in more than 50% of the volume of the nodule) 1. >2cm should be correlated with the patient?s TSH level. If the TSH level is low, an I-123 thyroid uptake and scan is recommended. 2. Otherwise, US-guided FNA of the nodule is recommended. Should the nodule be benign on FNA, follow-up US in 6-12 months is recommended. 3. If stable for 1 - 2 years, subsequent ultrasound can be considered at 3 - 5 year intervals. 4. (Chapa JK et al. J Amer [place] Radiol 2015 12 (2):142-150; [facility] Practice Guideline - Thyroid Carcinoma v 2.2014; Mehul DS et al. Thyroid (2009) 19(11):1210-3365; Saulo MC et al. Radiology (2005) 237:794-800) Electronically Signed: Ja Obregon MD at 19:14 EDT ,
== END | disposition home or self-care (01) ==
LOC: US 14:28
PROVIDERS: PCP Internal Medicine; Referring Provider Internal Medicine; Visit Provider Internal Medicine
DX: E04.1 Nontoxic single thyroid nodule (principal)
CPT/HCPCS: 76536

== ENCOUNTER → 2024-05-21 | Outpatient (CLI) | payer MEDICARE, SELFPAY ==
--- NOTE | 2024-05-21 08:07 | RAD_ITS ---
STUDY: X-RAY - ESOPHAGUS (BARIUM SWALLOW) WITH FLUOROSCOPY REASON FOR EXAM: Female, 78 years old. DYSPHAGIA TECHNIQUE: 86 fluoroscopic view(s) of the esophagus were obtained following swallowing of barium. FLUOROSCOPY TIME (if supplied): (1 minute and 2 seconds.) minutes/seconds. 6.5 mGy. COMPARISON: None. FINDINGS: There is no demonstrated esophageal foreign body. There is no demonstrated stricture or mucosal abnormality. Normal gastroesophageal junction, without a demonstrated hiatal hernia. The patient ingested a 12 mm tablet of barium without any difficulty. There is atherosclerotic calcification of the aortic arch with tortuosity of the descending aorta. Normal visualized pulmonary parenchyma. There are diffuse degenerative changes of the visualized thoracic spine. Dextroscoliosis of the thoracic spine. RAD/Esophagus Single Contrast IMPRESSION: No acute abnormality is seen. Electronically Signed: Samuel Soriano MD at 12:13 EDT ,
== END | disposition home or self-care (01) ==
PROVIDERS: PCP Internal Medicine; Referring Provider Internal Medicine; Visit Provider Internal Medicine
DX: R13.10 Dysphagia, unspecified (principal)
CPT/HCPCS: 74220

== ENCOUNTER → 2024-10-10 | Outpatient (CLI) | payer MEDICARE, SELFPAY ==
--- NOTE | 2024-10-10 12:59 | BD_ITS ---
PROCEDURE: DEXA BONE DENSITY STUDY REASON FOR EXAM: F, age 79 y/o . Postmenopausal. TECHNIQUE: DEXA scan of the lumbar spine and both hips. COMPARISON: Comparison is made with prior study dated September 19, 2022. FINDINGS: Lumbar Spine (L1-L4): g/cm2 (1.027)/T-score (-0.2)/Z-score (2.6) findings are suggestive of normal with a low fracture risk. Left Femur Total: g/cm2 (0.724)/T-score (-1.8)/Z-score (0.3) Left Femoral Neck: g/cm2 (0.660)/T-score (-1.7)/Z-score (0.7) Right Femur Total: g/cm2 (0.724)/T-score (-1.8)/Z-score (0.3) Right Femoral Neck: g/cm2 (0.660)/T-score (-1.7)/Z-score (0.7) The T-Scores on the most recent prior examination were: Lumbar Spine (L1-L4): There has been worsening of bone density since the previous examination. Left Femur Total: Worsening of 5.5%. Right Femur Total: Worsening of 5.5%. BD/Dexa Bone Density Study IMPRESSION: The patient is considered osteopenic as outlined below according to World Gilberto Organization (WHO) criteria with a moderate fracture risk. There has been worsening of bone density since the previous exa mination. Reading Location: [place]
--- NOTE | 2024-10-10 13:30 | BI_ITS ---
PROCEDURE: SCRN MAMM (CAD)W/OMID BILAT REASON FOR EXAM: F, Age 79 y/o , SCRN MAMM (CAD)W/OMID BILAT: SCHEDULE IN SEPTEMBER. No family history. TECHNIQUE: Bilateral screening digital breast tomosynthesis with 2D and 3D images. Computer aided detection. COMPARISON: Prior exam(s) dating back to September 29, 2023.. FINDINGS: There are scattered areas of fibroglandular density. Stable examination. No suspicious masses, areas of developing architectural distortion, or suspicious calcifications. BI/SCRN MAMM (CAD)W/OMID BILAT IMPRESSION: BI-RADS 1: NEGATIVE. RECOMMEND ANNUAL MAMMOGRAPHIC SCREENING. Follow-up code: Routine Follow-up The patient will be notified of the results by letter. Reading Location: [id number]
== END | disposition home or self-care (01) ==
LOC: OPBD 12:56
PROVIDERS: PCP Internal Medicine; Referring Provider Internal Medicine; Visit Provider Internal Medicine
DX: Z78.0 Asymptomatic menopausal state (principal); Z12.31 Encounter for screening mammogram for malignant neoplasm of breast
CPT/HCPCS: 77063; 77067; 77080

== ENCOUNTER → 2025-04-15 | Outpatient (CLI) | payer MEDICARE, SELFPAY ==
--- NOTE | 2025-04-15 13:50 | VDLE_ITS ---
Reason For Study Reason For Study: RLE Swelling RIGHT LEFT GSV is compressible from ankle to knee. GSV non CFV is compressible, spontaneous, phasic, competent, visualized knee to SFJ. Pt has HX of ablation. and demonstrates normal augmentation. CFV is compressible, spontaneous, phasic, competent and demonstrates normal augmentation. FV is compressible, spontaneous, phasic, competent and demonstrates normal augmentation. POP V is compressible, spontaneous, phasic, competent and demonstrates normal augmentation. T/P Trunk is compressible. PTV is compressible. RT PerV is compressible Nonvascularized area of mixed echoes noted in Rt Pop Fossa measuring approximately 3.44cm x 2.62cm. VL/Venous Duplex US, Unilateral Interpretation Summary Deep veins of the right lower extremity are patent and compressible segmentally . There is no evidence of right lower extremity deep vein thrombosis. Valvular competence appears intact within the p roximal deep venous system on the right . The right great saphenous vein is patent and compressible below the knee, but w as not visualized above the knee. A non- vascular, heterogeneous structure is noted in the right popliteal space, measur ing 3.44 cm x 2.62 cm. This probably represents a popliteal cyst. Clinical correlation is advised. The left common f emoral vein is patent and compressible . Ordering Physician: Isabella Sahu Referring Physician: Isabella Sahu Performed By: Roxanne Kaminski RVT and Student
== END | disposition home or self-care (01) ==
LOC: CVS 13:47
PROVIDERS: PCP Internal Medicine; Referring Provider Internal Medicine; Visit Provider Internal Medicine
DX: M79.89 Other specified soft tissue disorders (principal)
CPT/HCPCS: 93971

== ENCOUNTER → 2025-04-16 | Outpatient (CLI) | payer MEDICARE, SELFPAY ==
--- NOTE | 2025-04-16 14:00 | US_ITS ---
PROCEDURE: THYROID 04/16/2025 REASON FOR EXAM: THYROID; DUE IN TECHNIQUE: Procedure Code: USTHY Modality: US Procedure: THYROID COMPARISON: Prior study dated April 24, 2024. FINDINGS: Right thyroid lobe size: 4.9 cm 1.3 cm x 1.3 cm Left thyroid lobe size: 4 cm x 1.8 cm 1.5 cm Isthmus: 0.2 cm Background parenchymal echotexture is heterogeneous. Nodules: Once again, there are 4 complex and solid nodules in the right lobe of the thyroid. The largest is in the midpole and measures 1 cm x 0.9 cm x 0.7 cm. This is TI-RADS 4. The other 3 nodules are subcentimeter in size. Dominant 2.1 cm 1.6 cm 1.3 cm complex nodule in the inferior pole of the left lobe. This is essentially unchanged. This is a tie rads category 4. Complex nodule in the superior pole of the left lobe of the thyroid as well measuring 1.3 cm 1.4 cm x 0.9 cm. This is a tie rads 3. US/Thyroid IMPRESSION: Stable bilateral nodules in keeping with multinodular goiter. RECOMMENDATION: Based on most suspicious nodule. Nodule size = largest diameter Only evaluate nodule if =>5 mm. Growth > 20% in 2 dimensions = worsening. Follow up to 4 nodules. Recommend biopsy for no more than 2 nodules. Reading Location: [place] [id number]
== END | disposition home or self-care (01) ==
LOC: US 13:57
PROVIDERS: PCP Internal Medicine; Referring Provider Internal Medicine; Visit Provider Internal Medicine
DX: E04.1 Nontoxic single thyroid nodule (principal)
CPT/HCPCS: 76536

== ENCOUNTER → 2025-06-11 | Outpatient (CLI) | payer MEDICARE, SELFPAY ==
[2025-06-11 10:21] LABS: Hematocrit 43.5 % (37-47); Hemoglobin 13.6 g/dL (12.0-15.0); Immature Granulocytes Count 0.020 X10^3/uL (0.0-0.0); Mean Corp Hgb Conc 31.3 g/dL (32-36); Mean Corpuscular Volume 94.8 fL (81-99); Mean Platelet Vol. 9.0 fl (6.2-12.0); NRBC Flagged by Analyzer 0 % (0-5); Platelet Count 253 K/mm3 (150-450); RBC Distribution Width CV 13.4 % (11.6-14.6); RBC Distribution Width SD 46.5 fl (35.1-43.9); Red Blood Count 4.59 M/mm3 (4.2-5.4); White Blood Count 6.2 K/mm3 (4.4-11.0)
[2025-06-11 10:43] LABS: AST(SGOT) 22 U/L (<=31); Alanine Aminotransfer ALT/SGPT 17 U/L (<=34); Albumin, Serum 3.9 g/dL (3.4-4.8); Alkaline Phosphatase 94 U/L (35-104); Anion Gap 9 (5-15); BUN 12 mg/dL (4-19); BUN/Creat Ratio 15.1 RATIO (10-20); Calcium,Total 9.4 mg/dL (7.6-11.0); Carbon Dioxide 28.6 mmol/L (21.0-32.0); Chloride 104 mmol/L (98-108); Cholesterol 133 mg/dL (<=200); Globulin 3.0 g/dL (2.2-4.2); Glucose 94 mg/dL (70-99); Low Density Lipoprotein Calc. 52 mg/dL; Potassium 4.5 mmol/L (3.3-5.1); Triglycerides 94 mg/dL; Very Low Density Lipoprotein 19 mg/dL (5-40); cholesterol:hdl ratio screen 2.09
== END | disposition home or self-care (01) ==
LOC: MTLAB 09:10
PROVIDERS: PCP Internal Medicine; Referring Provider Internal Medicine; Visit Provider Internal Medicine
DX: I10 Essential (primary) hypertension (principal); R73.09 Other abnormal glucose; E78.49 Other hyperlipidemia
CPT/HCPCS: 36415; 80053; 80061; 83036; 85025